=== PATIENT | male | born 1945 | race Caucasian/White ===

== ENCOUNTER → 2020-12-19 15:04 | Outpatient (CLI) | payer MEDICARE, SELFPAY ==
[2020-12-19 16:52] LABS: Absolute Lymphocyte Count 1.29 X10^3/uL (0.83-4.51); Absolute Neutrophil Count 4.3 X10^3/uL (2.0-7.7); Basophil# 0.06 X10^3/uL; Basophil% 0.9 % (0-1); Eosinophil# 0.21 X10^3/uL; Eosinophils% 3.2 % (0-5); Hematocrit 41.3 % (40-54); Lymphocyte # 1.29 X10^3/ul (0.83-4.51); Lymphocyte % 19.8 % (19-41); Mean Corp Hgb Conc 31.5 g/dL (32-36); Mean Corpuscular Hgb 28.4 pg (27.0-32.0); Mean Corpuscular Volume 90.4 fL (80-94); Mean Platelet Vol. 9.6 fl (6.2-12.0); Monocyte# 0.67 X10^3/uL; Monocyte% 10.3 % (0-10); NRBC Flagged by Analyzer 0 % (0-5); Neutrophil # 4.27 X10^3/uL (2.7-7.7); Neutrophil % 65.3 % (47-70); Platelet Count 255 K/mm3 (150-450); RBC Distribution Width CV 13.4 % (11.6-14.6); RBC Distribution Width SD 44.7 fl (35.1-43.9); Red Blood Count 4.57 M/mm3 (4.6-6.2); White Blood Count 6.5 K/mm3 (4.4-11.0)
[2020-12-19 17:31] LABS: ALB/GLOB Ratio 1.3 RATIO (0.9-2.4); AST(SGOT) 28 U/L (15-37); Alanine Aminotransfer ALT/SGPT 30 U/L (16-61); Albumin, Serum 3.7 g/dL (3.2-5.0); Alkaline Phosphatase 77 U/L (45-117); Anion Gap 7 (5-15); BUN 21 mg/dL (7-18); BUN/Creat Ratio 18.9 RATIO (10-20); Calcium,Total 8.5 mg/dL (8.5-10.1); Chloride 106 mmol/L (98-107); Cholesterol 181 mg/dL (200); Creatinine, Serum 1.11 mg/dL (0.70-1.30); EST Glomerular Filtration Rate 69 mL/min (>60); Est Glom Filt Rate - Afr Amer 83 mL/min (>60); Globulin 2.9 g/dL (2.2-4.2); Glucose 89 mg/dL (74-106); High Density Lipoprotein 54 mg/dL; Protein, Total 6.6 g/dL (6.4-8.2); Sodium Level 142 mmol/L (136-145); Thyroid Stim Hormone (TSH) 1.63 uIU/mL (0.358-3.74); Triglycerides 167 mg/dL; Very Low Density Lipoprotein 33 mg/dL (5-40)
[2020-12-20 08:17] LABS: Hepatitis C Antibody Non-Reactive (Nonreactive)
== END ==
PROVIDERS: PCP Family Medicine Geriatric Medicine; Visit Provider Family Medicine Geriatric Medicine
DX: E78.5 Hyperlipidemia, unspecified (principal); R53.83 Other fatigue; Z13.89 Encounter for screening for other disorder
CPT/HCPCS: 36415; 80053; 80061; 84443; 85025; 86803

== ENCOUNTER → 2020-12-27 12:54 | Outpatient (CLI) | payer MEDICARE, SELFPAY ==
--- NOTE | 2020-12-27 13:02 | CT_ITS ---
STUDY: CT CERVICAL SPINE WITHOUT CONTRAST REASON FOR EXAM: Male, 75 years old. CERVICAL DISC DEGENERATION RADIATION DOSAGE (If Supplied By Facility): CTDIvol = ( 20.44 ) mGy, DLP = ( 378.74 ) mGycm TECHNIQUE: High resolution transaxial imaging was performed without contrast material. Sagittal and coronal images were reconstructed. Individualized dose optimization techniques were used for this CT. COMPARISON: None FINDINGS: Normal craniovertebral junction. Normal anterior atlantoaxial articulation. Normal odontoid process. There is straightening of the normal cervical lordosis. Normal vertebral bodies and posterior osseous elements. C2-3: Hypertrophy of the facet joints worse on the right side. Posterior spondylosis causing marked degree of right neural foraminal stenosis and moderate degree of left neural foraminal stenosis. C3-4: The patient is status post laminectomy and interpedicular screw and wire fixation at the C3-C4 level. There is evidence of facet joint hypertrophy worse on the left side. Mild left neural foraminal stenosis. C4-5: Minimal mass effect of the superior endplate of the C4 vertebrae. Status post laminectomy and posterior fusion. Facet joint osteoarthritis and hypertrophy worse on the right side. Uncovertebral arthrosis with bilateral neural foraminal stenosis worse on the right side. C5-6: Prior laminectomy and interpedicular screw and jolene fixation. Hypertrophy of the facet joints worse on the left side with uncovertebral arthrosis. Bilateral neural foraminal stenosis worse on the left side. C6-7: Moderate degree of disc space narrowing. Uncovertebral arthrosis. Moderate degree of bilateral neural foraminal stenosis. Normal visualized soft tissue structures. CT/Spine Cervical without Contras IMPRESSION: Prior laminectomy and posterior fusion at the C3-C4 and C4-C5 levels with multilevel bilateral neural foraminal stenosis as described. Electronically Signed: Jake Guardado MD at 14:43 EDT , Service support ,
--- NOTE | 2020-12-27 13:03 | CT_ITS ---
STUDY: LOW DOSE CT LUNG CANCER SCREENING REASON FOR EXAM: Male, 75 years old. CIG SMOKER. The patient smoked 1 pack per day for 25 years. RADIATION DOSAGE (If Supplied By Facility): CTDIvol = ( 4.02 ) mGy, DLP = ( 196.34 ) mGycm TECHNIQUE: No contrast was administered. Low dose technique was utilized (average mAS-38 and kVp 120). 1.25 mm axial source images with a slice interval of 1.25-mm were reconstructed in lung windows. 2.5 mm axial source images with a slice interval of 2.5-mm were reconstructed in lung windows. 5.0 mm axial source images with a slice interval of 5.0-mm were reconstructed in soft tissue windows. Nodule measured using lung windows on PACS and/or independent workstation with automated measurement of minimum and maximum diameter. Nodule measurement reported as average diameter rounded to the nearest whole number. Growth is defined as an increase ins size of greater than 1.5 mm. COMPARISON: None. NODULES: No suspicious nodules are seen. Emphysema: Mild degree of scarring at the lung bases slightly more prominent on the left lung base. Endobronchial lesion: None Aorta: Mild calcific plaques at the level of the aortic arch. Coronary arteries: Coronary artery calcifications. Heart: Unremarkable Pulmonary artery: Unremarkable Mediastinal nodes: Small mediastinal lymph nodes. Other chest and abdominal findings: CT/Low Dose CT Lung Screening IMPRESSION: Lung-RADS category 2 - Continue annual screening with LDCT in 12 months. IMPORTANT NOTES FOR USE: ACR Lung-RADS Version 1.1 Assessment Categories Release Date: 2018 Category: Coded 0-4 bases on nodule(s) with highest degree of suspicion. Negative screen is defined as categories 1 and 2; a positive screen is defined as categories 3 and 4. Category 3 and 4A nodules that are unchanged on interval CT should be coded as category 2, and individuals returned to screening in 12 months. Category 4X: Category 3 or 4 nodules with additional imaging findings that increase the suspicion of lung cancer, such as spiculation, GGN that doubles in size in 1 year, enlarged lymph notes, etc. Category Modifiers: S (significant finding unrelated to lung cancer) Electronically Signed: Jake Guardado MD at 14:45 EDT , Service support ,
== END ==
PROVIDERS: PCP Family Medicine Geriatric Medicine
DX: M50.322 Other cervical disc degeneration at C5-C6 level (principal); F17.210 Nicotine dependence, cigarettes, uncomplicated
CPT/HCPCS: 71271; 72125

== ENCOUNTER 2021-04-02 10:30 | Outpatient (RCR) | payer MEDICARE, SELFPAY ==
--- NOTE | 2021-01-29 12:40 | HP.PTEVAL_ITS ---
Patient's Visit Information LUÍS HERNANDEZ is a 75 year old M referred to Physical Therapy by Dr. Zackary Carlos MD with a diagnosis of Cervical. Date of Evaluation: 01/29/21 Physical Therapist: Yaa Vizcaino DPT - Visit Plan Frequency: 2x /Week Duration: 4 Weeks Plan: Focus on postural strength/stabilization and reducing radiating s/s- No US. Cervical Fusion Jun 2020. HEP Given IE: Postural education, Isometrics in all directions cervical spine, scapular retractions - Subjective Patient reports that he had a laminectomy and fusion by an MD in [place] on July 04, 2020. He was better after surgery- but stuff is starting to creep back in. Symptoms before surgery numbness/tingling down the left arm all the way to the hand- neck pain hard to sleep. Just started to have tingling to the left side of the face and a little bit of symptoms in the hand. The tingling in the hand comes and goes but the neck and face is always sore. Describes the pain as dull and achy- Left side only. Worst: 4-5/10 Agg: any kind of lifting. They bought a house and has been lifting. Eases: laying down on his side. Best: 4-5/10. Prior to surgery had weakness but does not have that now- no problems with finger dexterity. Has had increased headaches- occiput on the left side- constant pressure always there. Sleep: hard to get comfortable. No blurred vision, lightheaded, dizziness. Did not therapy after surgery. Surgeon suggestions: no lifting heavy objects and jumping. Has been cleared to not see him again. Fusion and everything is in place. PMHx: borderline HTN, Bilateral TKR, bladder surgery, Cervical Fusion. Meds: Hydroxisonin, gabapentin at night helps him sleep, Celebrex as needed, Tylenol arthritis, heat/ice on his neck, Sediment for restless leg. He is very active and likes to be more active. - Objective Posture: poor in both sitting and standing with severe forward head and rounded shoulders- can correct RS with verbal and tactile cues but is unable to bring head into neutral position. Gait: good arm swing and trunk rotation but does maintain FH, RS posture. Palpation: tender along upper trap bilateral Left>Right- levator insertion- infraspinatus in the left. Strength: Cervical Isometric: 4/5, Scap: fair minus, Shoulder: 4+/5 bilateral, Elbow/Wrist: 5/5 Ceramic Research Engineer: Left: 40lbs of force Right: 100 lbs of force. Sensation: WNL to gross touch throughout bilateral UE. ROM: UE: WFL, Cervical Spine: Extn: unable to get to neutral, Flexion: chin to chest SB: decreased by 75% Rotation: decreased by 75%. *No testing increased s/s* - Goals Goal 1:: Patient will be I with HEP and progression Goal Time Frame: 4-6 Weeks Goal 2:: Patient will demo improved posture t/o tx session to demo increases scap s/s Goal Time Frame: 4-6 Weeks Goal 3:: Patient will report no radiating s/s for 1 week Goal Time Frame: 4-6 Weeks Goal 4:: Patient will report sleeping through the night without waking due to neck symptoms Goal Time Frame: 4-6 Weeks - Rehabilitation Potential Physical Therapy Diagnosis: Patient presents with hypomobility-he has decreased ROM, scapular strength/stabilization, upper extremity strength and muscular endurance leading to poor posture and increased pain with ADL's. Rehabilitation Potential: Fair - Anticipated Interventions Patient/Client Instruction: Educate patient on: Benefits of Fitness Program Therapeutic Exercise to Include: Strength training, Endurance training, Body mechanics, Postural training, Flexibilty training, Scapular Strength/Stabilization For the Purpose of:: To improve muscle performance and motor function Cryotherapy (ice pack, ice massage): Yes Thermo therapy (hot pack): Yes Ultrasound (thermal/non thermal): No Thank you for the opportunity to evaluate your patient. For Medicare and Medicare HMO plans, please review the plan of care and approve it. It will need to be FAXED BACK to us at [phone] for Medicare purposes. For Medicare only, by signing this I certify the plan of care. Please let me know if there are questions or concerns regarding this plan of care. Physician Signature: Date:
--- NOTE | 2021-04-19 08:38 | HP.PT.NRP ---
LUÍS HERNANDEZ was seen in my office for initial evaluation on 01/29/21. The following Plan of Care was established for this patient: Initial Frequency: 2x /Week Initial Duration: 4 Weeks Patient/Client Instruction: Educate patient on: Benefits of Fitness Program Therapeutic Exercise to Include: Strength training, Endurance training, Body mechanics, Postural training, Flexibilty training, Scapular Strength/Stabilization For the Purpose of:: To improve muscle performance and motor function Cryotherapy (ice pack, ice massage): Yes Thermo therapy (hot pack): Yes Ultrasound (thermal/non thermal): No This patient was last seen in our office 04/02/21. Pertinent comments regarding their Physical therapy will appear below: This patient has not returned to Physical Therapy and is appropriate to return to MD for further follow-up as needed. At this point I will be discontinuing this patient from physical therapy. I would be happy to see this patient again in the future if found appropriate by the physician. Thank you! Erna Lauren, PT, Cert MDT Balance/Gait/Functional tests - Balance/Special Test Scores Oswestry Neck Score: 22
== END 2021-04-02 19:00 | disposition home or self-care (01) ==
LOC: PT 10:30
PROVIDERS: PCP Family Medicine Geriatric Medicine; Referring Provider Family Medicine Geriatric Medicine; Visit Provider Family Medicine Geriatric Medicine
DX: M48.02 Spinal stenosis, cervical region (principal)
CPT/HCPCS: 97110; 97162; 97530

== ENCOUNTER → 2021-05-27 11:14 | Outpatient (CLI) | payer MEDICARE, SELFPAY ==
--- NOTE | 2021-05-27 11:18 | RAD_ITS ---
STUDY: X-RAY - PELVIS AND RIGHT HIP REASON FOR EXAM: Male, 76 years old. HIP PAIN TECHNIQUE: 3 views of the pelvis and hip. COMPARISON: None. FINDINGS: There is a non-specific bowel gas pattern. Normal visualized soft tissue structures. Normal bilateral iliac wings, sacroiliac joints and visualized sacrum. Normal bilateral superior and inferior pubic rami. Normal pubic symphysis. Normal bilateral ischial tuberosities. Normal visualized femoral head. Normal acetabulum. Normal hip joint. RAD/HIP, UNI W/ Pelvis 2-3 Views IMPRESSION: Normal x-ray examination of the pelvis and hip. Electronically Signed: Migue Morris MD at 16:30 EDT Tel , Service support ,
--- NOTE | 2021-05-27 11:18 | RAD_ITS ---
STUDY: X-RAY - RIGHT KNEE REASON FOR EXAM: Male, 76 years old. KNEE PAIN TECHNIQUE: 4 view(s) of the knee. COMPARISON: None. FINDINGS: Normal visualized distal femur. Normal visualized proximal tibia and fibula. Normal proximal tibiofibular articulation. Status post total knee arthroplasty. The prosthesis appears located. No osteolysis to suggest loosening.. The soft tissue structures are unremarkable. RAD/Knee 4 or More Views IMPRESSION: Normal x-ray examination of the knee after total knee arthroplasty. Electronically Signed: Migue Morris MD at 16:31 EDT Tel , Service support ,
== END ==
PROVIDERS: PCP Family Medicine Geriatric Medicine; Referring Provider Family Medicine Geriatric Medicine; Visit Provider Family Medicine Geriatric Medicine
DX: M25.551 Pain in right hip (principal); M25.561 Pain in right knee
CPT/HCPCS: 73502; 73564

== ENCOUNTER → 2021-07-05 10:16 | Outpatient (CLI) | payer MEDICARE, SELFPAY ==
[2021-07-05 11:40] LABS: Anion Gap 4 (5-15); BUN 23 mg/dL (7-18); BUN/Creat Ratio 22.5 RATIO (10-20); Calcium,Total 8.8 mg/dL (8.5-10.1); Chloride 103 mmol/L (98-107); Creatinine, Serum 1.02 mg/dL (0.70-1.30); EST Glomerular Filtration Rate 76 mL/min (>60); Est Glom Filt Rate - Afr Amer 92 mL/min (>60); Glucose 98 mg/dL (74-106); Potassium 4.2 mmol/L (3.5-5.1); Sodium Level 136 mmol/L (136-145)
== END ==
PROVIDERS: PCP Family Medicine Geriatric Medicine; Referring Provider Internal Medicine Cardiovascular Disease; Visit Provider Internal Medicine Cardiovascular Disease
DX: I10 Essential (primary) hypertension (principal)
CPT/HCPCS: 36415; 80048

== ENCOUNTER → 2021-07-12 08:47 | Outpatient (CLI) | payer MEDICARE, SELFPAY | PROVIDERS: PCP Family Medicine Geriatric Medicine; Referring Provider Internal Medicine Cardiovascular Disease; Visit Provider Internal Medicine Cardiovascular Disease | DX: I10 Essential (primary) hypertension (principal) | CPT/HCPCS: 93788 ==

== ENCOUNTER → 2022-01-27 | Outpatient (CLI) | payer MEDICARE, SELFPAY ==
--- NOTE | 2022-01-27 15:50 | RAD_ITS ---
EXAM: XR LUMBOSACRAL SPINE, 2 OR 3 VIEWS CLINICAL INDICATION: PAIN TECHNIQUE: Frontal and lateral views of the lumbar spine and sacrum. This report was created using [employer] report [employer] technology. COMPARISON: None. FINDINGS: VERTEBRAE: Unremarkable. Preserved vertebral body height. No fracture. No spondylolisthesis. Preservation of the normal lumbar lordosis. No significant facet arthropathy. DISC SPACES: There is disc space narrowing from L3 through S1. There is severe bony neural foraminal narrowing at L3-4, L4-5 and L5-S1. GASTROINTESTINAL TRACT: Unremarkable as visualized. Included bowel gas pattern is non-obstructive. RAD/Lumbar Spine 2 or 3 Views IMPRESSION: Degenerative changes with disc space narrowing and bony neural foraminal narrowing lower lumbar spine. There are no acute osseous abnormalities. Electronically Signed: Herson Awad MD at 18:02 EDT ,
== END | disposition home or self-care (01) ==
LOC: RAD 15:36
PROVIDERS: PCP Internal Medicine; Referring Provider Anesthesiology Pain Medicine; Visit Provider Anesthesiology Pain Medicine
DX: M51.36 Other intervertebral disc degeneration, lumbar region (principal)
CPT/HCPCS: 72100

== ENCOUNTER → 2022-02-06 | Outpatient (CLI) | payer MEDICARE, SELFPAY ==
--- NOTE | 2022-02-06 15:38 | MRI_ITS ---
STUDY: MR Spine Lumbar W/O Contrast 02/07/2022 3:20 PM REASON FOR EXAM: Male, 76 years old. Back pain RADICULOPATHY, LUMBAR REGION TECHNIQUE: MR Spine Lumbar W/O Contrast Standardized fat and water weighted pulse sequences were obtained. COMPARISON: None FINDINGS: Normal lumbar lordosis. There is a levoscoliosis of the lumbar spine. Normal conus medullaris that terminates at the L1. L1-2: Loss of intervertebral disc height. There is endplate spondylosis of the vertebral body. Normal central canal and intervertebral neuroforamina. There is bilateral facet arthropathy. L2-3: Loss of intervertebral disc height. There is endplate spondylosis of the vertebral body. Normal central canal and intervertebral neuroforamina. There is bilateral facet arthropathy. There is bilateral ligamentum flavum thickening. L3-4: Loss of intervertebral disc height. There is endplate spondylosis of the vertebral body. Narrowing of the bilateral intervertebral neuroforamina. No evidence for compression of the exiting nerve roots. There is bilateral facet arthropathy. There is bilateral ligamentum flavum thickening. Mild spinal stenosis. L4-5: Loss of intervertebral disc height. There is endplate spondylosis of the vertebral body. Narrowing of the bilateral intervertebral neuroforamina. No evidence for compression of the exiting nerve roots. There is bilateral facet arthropathy. There is bilateral ligamentum flavum thickening. Grade 1 anterolisthesis measuring 5.1 mm of L4 on L5. Severe spinal stenosis. L5-S1: Loss of intervertebral disc height. There is endplate spondylosis of the vertebral body. There is bilateral facet arthropathy. Normal central canal and intervertebral neuroforamina. Vacuum disc phenomenon. Posterior disc bulge. Grade retrolisthesis of L5 on S1. This measures 2.7 mm. Normal visualized sacral ala. Normal visualized paraspinous soft tissue structures. MRI/Spine Lumbar (Routine) IMPRESSION: Multilevel degenerative changes, as described above. L3-4: Loss of intervertebral disc height. There is endplate spondylosis of the vertebral body. Narrowing of the bilateral intervertebral neuroforamina. No evidence for compression of the exiting nerve roots. There is bilateral facet arthropathy. There is bilateral ligamentum flavum thickening. Mild spinal stenosis. L4-5: Loss of intervertebral disc height. There is endplate spondylosis of the vertebral body. Narrowing of the bilateral intervertebral neuroforamina. No evidence for compression of the exiting nerve roots. There is bilateral facet arthropathy. There is bilateral ligamentum flavum thickening. Grade 1 anterolisthesis measuring 5.1 mm of L4 on L5. Severe spinal stenosis. L5-S1: Loss of intervertebral disc height. There is endplate spondylosis of the vertebral body. There is bilateral facet arthropathy. Normal central canal and intervertebral neuroforamina. Vacuum disc phenomenon. Posterior disc bulge. Grade retrolisthesis of L5 on S1. This measures 2.7 mm. Electronically Signed: Juve Mustafa MD at 15:41 EDT ,
== END | disposition home or self-care (01) ==
PROVIDERS: PCP Internal Medicine; Visit Provider Anesthesiology Pain Medicine
DX: M54.16 Radiculopathy, lumbar region (principal)
CPT/HCPCS: 72148

== ENCOUNTER → 2022-06-06 | Outpatient (CLI) | payer MEDICARE, SELFPAY ==
--- NOTE | 2022-06-06 09:45 | RAD_ITS ---
STUDY: X-RAY - PELVIS AND RIGHT HIP REASON FOR EXAM: Male, 77 years old. PAIN TECHNIQUE: 3 views of the pelvis and hip. COMPARISON: None. FINDINGS: There is a non-specific bowel gas pattern. There are multiple calcified phleboliths. There are degenerative changes of the sacroiliac joints. Normal bilateral superior and inferior pubic rami. There are degenerative changes of the pubic symphysis with articular narrowing and sclerosis. Normal bilateral ischial tuberosities. There are degenerative changes of the hips characterized by joint space narrowing and subchondral sclerosis. RAD/HIP, UNI W/ Pelvis 2-3 Views IMPRESSION: Degenerative changes. Electronically Signed: Silvina De La Cruz MD at 14:57 EDT ,
== END | disposition home or self-care (01) ==
LOC: RAD 09:36
PROVIDERS: PCP Internal Medicine; Referring Provider Anesthesiology Pain Medicine; Visit Provider Anesthesiology Pain Medicine
DX: M16.11 Unilateral primary osteoarthritis, right hip (principal)
CPT/HCPCS: 73502

== ENCOUNTER 2022-08-24 23:10 | Inpatient (IN) | payer MEDICARE, SELFPAY ==
[2022-08-24 23:14] VITALS: BP 173/129; PULSE 91; RESP 23; TEMP 36.4; O2SAT 99; BMI 30.1
--- NOTE | 2022-08-24 23:36 | EKG12_ITS ---
Test Reason : POST PCI Blood Pressure : / mmHG Vent. Rate : 076 BPM Atrial Rate : 076 BPM P-R Int : 180 ms QRS Dur : 098 ms QT Int : 404 ms P-R-T Axes : 048 -09 011 degrees QTc Int : 454 ms Normal sinus rhythm Inferior infarct , age undetermined , cannot be excluded Poor R wave progression Abnormal ECG Confirmed by SHAMA HENDERSON, BILL ([id number]), editor city TARIK ARCHULETA ([id number]) on 08/27/2022 10:48:15 AM Referred By: YOYL Confirmed By:BILL SESAY MD
--- NOTE | 2022-08-24 23:36 | RAD_ITS ---
STUDY: X-RAY CHEST REASON FOR EXAM: Male, 77 years old patient with chest pain. TECHNIQUE: Single AP portable view of the chest. COMPARISON: CT of the chest dated December 27, 2020. FINDINGS: Cardiac monitoring leads are present. The lungs are hyperexpanded with prominence of the bronchovascular markings. There is no demonstrated pleural abnormality. There is borderline cardiomegaly. Normal mediastinum and danae. There is prominence of the pulmonary hilar arteries with peripheral pulmonary vascular congestion. There is atherosclerotic calcification of the aortic arch with tortuosity. There are diffuse degenerative changes of the visualized thoracic spine. There is subtle deformity of the distal right clavicle that may be the result of old fracture. There is no demonstrated abnormality of the visualized soft tissue structures of the upper abdomen. RAD/Chest 1 View (Portable) IMPRESSION: Borderline cardiomegaly and mild pulmonary vascular congestion. Electronically Signed: Naya Shaw MD at 0:07 EST ,
[2022-08-24] MEDS: Ondansetron 4 MG/2 ML Vial IV (23:43)
[2022-08-24] MEDS: Aspirin 81 MG TAB.CHEW 324 MG PO (23:45)
[2022-08-24 23:50] VITALS: BP 173/129; PULSE 75
[2022-08-24] MEDS: Nitroglycerin SL (ED/IMG/CATH) 0.4 MG TABLET SL (23:50)
[2022-08-24 23:53] LABS: Absolute Lymphocyte Count 2.07 X10^3/uL (0.83-4.51); Absolute Neutrophil Count 3.9 X10^3/uL (2.0-7.7); Basophil# 0.05 X10^3/uL; Basophil% 0.7 % (0-1); Eosinophil# 0.24 X10^3/uL; Eosinophils% 3.3 % (0-5); Hematocrit 43.8 % (40-54); Hemoglobin 14.9 g/dL (13.0-16.5); Lymphocyte # 2.07 X10^3/ul (0.83-4.51); Lymphocyte % 28.4 % (19-41); Mean Corpuscular Hgb 30.8 pg (27.0-32.0); Mean Corpuscular Volume 90.5 fL (80-94); Mean Platelet Vol. 9.3 fl (6.2-12.0); Monocyte# 0.98 X10^3/uL; Monocyte% 13.5 % (0-10); NRBC Flagged by Analyzer 0 % (0-5); Neutrophil # 3.91 X10^3/uL (2.7-7.7); Neutrophil % 53.7 % (47-70); Platelet Count 338 K/mm3 (150-450); RBC Distribution Width CV 13.2 % (11.6-14.6); RBC Distribution Width SD 44.2 fl (35.1-43.9); Red Blood Count 4.84 M/mm3 (4.6-6.2); White Blood Count 7.3 K/mm3 (4.4-11.0)
--- NOTE | 2022-08-24 23:54 | EDS_ITS ---
HPI History of Present Illness Chief Complaint: Chest Pain Informant: patient Onset/Context/Timing Onset: Hours (2-3) Activity at onset: gradual and onset Timing: Continuous Quality: Positive for Dull and Pain Location: Left Chest (w/ radiation to back between shoulder blades and down LUE) Current Severity: Moderate Maximum Severity: Moderate Worsened By: Nothing; Not Worsened By Movement of Arm, Movement of Torso, Palpation, Breathing or Coughing Relieved By: Nothing Associated Symptoms: Positive for Nausea and Dyspnea; Negative for Vomiting, Diaphoresis, Cough, Fever, Lightheadedness or Palpitations Narrative Narrative: Patient states he has been having intermittent chest pain for the last 2 or 3 days, but worse and more persistent tonight. The episodes of may be lasted hours at a time prior to tonight. Nonpleuritic discomfort more associated with the left side, radiates into his upper back and his left upper extremity. No history of heart problems that he knows of. Has never failed a stress test the last one he had was 1-2 years ago. Non-smoker. CVD Risk Factors: Positive for Hypertension and Hypercholesterolemia; Negative for Diabetes, Family History 1' </=55 or Smoking PE Risk Factors: Positive for Recent Travel/Surgery (Travel to and from [place], no leg pain or swelling); Negative for Recent Immobilization, Prior DVT or PE, Cancer or OCP + Smoking + >/=35 [facility] Medical History Anxiety BPH (benign prostatic hyperplasia) Cervical stenosis of spine Coronary artery calcification seen on CAT scan (12/2016) Essential hypertension History of hyperthyroidism Hyperlipidemia Insomnia Neuropathy Obesity Obstructive sleep apnea Osteoarthritis Restless legs syndrome (RLS) Home Medications carbidopa 25 mg-levodopa 100 mg tablet 1 tab PO QHS 06/21/21 [History Last Taken Unknown] diphenhydramine 25 mg-acetaminophen 500 mg tablet (Tylenol PM Extra Strength) 1 tab PO QHS PRN Pain 07/05/21 [History Last Taken Unknown] melatonin 5 mg capsule 5 mg PO QHS 07/05/21 [History Last Taken Unknown] doxazosin 4 mg tablet 4 mg PO QHS #90 tabs 03/03/22 [Rx Last Taken Unknown] gabapentin 300 mg capsule 300 mg PO DAILY #90 caps 07/16/22 [Rx Last Taken Unknown] Allergy/AdvReac Type Severity Reaction Status Date / Time acetaminophen [From Percocet] AdvReac unknown Verified 08/24/22 23:13 codeine AdvReac unknown Verified 08/24/22 23:13 oxycodone [From Percocet] AdvReac unknown Verified 08/24/22 23:13 Family History Sister Arthritis Mother Hypertension Other CVA (cerebral vascular accident) Surgical History H/O cervical spine surgery (02/2020) History of carpal tunnel surgery History of herniorrhaphy History of knee replacement History of thyroid surgery History of transurethral resection of prostate (09/2019) Trigger finger Social History Smoking Status: Former smoker quit date: 08/17/97 alcohol intake: current alcohol intake frequency: a few times a week substance use type: does not use ROS ROS ED Constitutional Constitutional ED: Denies chills or fever(s) Eyes Eyes: Denies change in vision or diplopia ENT ENT ED: Denies rhinorrhea or sore throat Cardiovascular Cardiovascular: Reports chest pain; Denies palpitations Respiratory/Chest Respiratory/Chest: Reports dyspnea; Denies cough Gastrointestinal Gastrointestinal: Reports nausea; Denies abdominal pain, diarrhea or vomiting Genitourinary Genitourinary ED: Denies dysuria or hematuria Musculoskeletal Musculoskeletal: Reports extremity pain; Denies back pain or neck pain Integumentary Denies abscess or rash Neurologic Neurologic: Denies headache(s), paresthesias or weakness Psychiatric Psychiatric: Denies anxiety or suicidal thoughts EXAM Physical Exam Const Vital Signs: 08/24/22 23:14 08/24/22 23:19 08/24/22 23:50 Temperature 97.5 F L Temperature Source Temporal Pulse Rate 91 75 Respiratory Rate 23 H Respiratory Effort Normal Respiratory Pattern Normal Blood Pressure 173/129 H 173/129 H Blood Pressure Mean 143 Pulse Ox 99 Oxygen Delivery Method Room Air 08/25/22 00:17 Temperature Temperature Source Pulse Rate 71 Respiratory Rate Respiratory Effort Respiratory Pattern Blood Pressure 132/85 H Blood Pressure Mean Pulse Ox Oxygen Delivery Method Positive well nourished and well developed General Appearance ED: well developed and NAD HEENT Reports moist mucous membranes normocephalic and atraumatic Eyes PERRL and EOMs intact bilaterally Neck full ROM, no lymphadenopathy, supple and no JVD Resp normal respiratory effort and clear to auscultation bilaterally Cardio regular rate, regular rhythm and no murmurs Rate: Negative for tachycardic GI non-tender and non-distended Auscultation: normoactive bowel sounds Palpation: soft Back/Spine no CVA tenderness General Back: other FROM Extremity normal to inspection, no calf tenderness and no pedal edema General Extremety ED: Negative for edema, pulses abnormal or tenderness General Extremity: Negative for edema or pulses abnormal Neuro oriented x3, CN's II-XII intact bilaterally and no sensory deficits noted Sensorium / Orientation: awake and alert Motor Exam: strength 5/5 throughout Skin no rashes or lesions noted and no wounds Heart Score History: Highly Suspicious ECG: Nonspecific Repolarization Age: >/= 65 years Risk Factors: 1 or 2 Risk Factors Score: 6 MDM MDM MDM Narrative Medical decision making narrative: Concerning story from this patient, he has some very minor nonspecific EKG changes in the lateral leads I and aVL, there is no criteria for STEMI. His 1 view chest x-ray shows borderline cardiomegaly, I do not see anything acute there. I interpreted the chest x-ray myself. Reviewed the radiology interpretation. He was given aspirin and nitroglycerin for his discomfort, initial troponin came back within normal limits at 32. However, given his EKG changes, concern at this could be unstable angina and I recommend that we admit him for further evaluation and testing. Also given an injection of Lovenox because of this. He is feeling much better after aspirin and nitroglycerin, his discomfort is almost completely gone. His blood pressure was elevated prior to this, now it is better and he is feeling much better. Will place nitroglycerin paste on his chest. High heart score, admission for further evaluation and possibly provocative testing indicated. Patient comfortable with that plan. Lab Data Attestation: I reviewed the patient's lab results. Labs: Laboratory Results - last 24 hr 08/24/22 08/24/22 23:25 23:25 WBC 7.3 RBC 4.84 Hgb 14.9 Hct 43.8 MCV 90.5 MCH 30.8 MCHC 34.0 RDW Std Deviation 44.2 H RDW Coeff of Danny 13.2 Plt Count 338 MPV 9.3 Immature Gran % (Auto) 0.400 Neut % (Auto) 53.7 Lymph % (Auto) 28.4 [place] % (Auto) 13.5 H Eos % (Auto) 3.3 Baso % (Auto) 0.7 Absolute Neuts (auto) 3.9 Absolute Lymphs (auto) 2.07 Nucleated RBC % 0 Sodium 141 Potassium 3.8 Chloride 109 H Carbon Dioxide 26.0 Anion Gap 6 BUN 18 Creatinine 1.18 Estim Creat Clear Calc 54.99 Est GFR (MDRD) Af Amer 77 Est GFR (MDRD) Non-Af 64 BUN/Creatinine Ratio 15.3 Glucose 107 H Calcium 9.0 Troponin I High Sens 32 Radiography Diagnostic Testing: Clinical Impression(s) from Imaging Studies Chest X-Ray 08/24/22 23:36 IMPRESSION: Borderline cardiomegaly and mild pulmonary vascular congestion. Electronically Signed: Naya Shaw MD at 0:07 EST Reading Location ID and State: [address] [place] [address] , Service support , Rhythm Strip Rhythm Strip: Sinus Rhythm Rate: 82 Ectopy: None EKG Initial EKG: Attestation: I personally reviewed and interpreted this EKG as follows: Interpretation: Sinus Rhythm, No Acute Injury Pattern and Non-Specific ST Changes (laterally I & aVL) Prior EKG tracings: available for review (Outside EKG from outpatient [facility] 07/15/2021) Prior: Changed Discharge Plan Triage Chief Complaint: Chest Pain ED Provider: Braxton Castillo Dx/Rx/DC Orders Clinical Impression: Unstable angina Prescriptions: No Action melatonin 5 mg capsule 5 mg PO QHS diphenhydramine-acetaminophen [Tylenol PM Extra Strength] 25-500 mg tablet 1 tab PO QHS PRN (Reason: Pain) carbidopa-levodopa 25-100 mg tablet 1 tab PO QHS doxazosin 4 mg tablet 4 mg PO QHS Qty: 90 1RF gabapentin 300 mg capsule 300 mg PO DAILY Qty: 90 3RF Primary Care Provider: Haroldo Hollis Referrals: Haroldo Hollis MD [Primary Care Provider] - Disposition Disposition: Acute Care Hospital [facility]
[2022-08-25] VITALS (16 sets, daily range): BP systolic 122–143; BP diastolic 74–94; PULSE 61–90; RESP 14–22; TEMP 36.4–36.9; O2SAT 94–98; BMI 31.2
[2022-08-25 00:11] LABS: Anion Gap 6 (5-15); BUN 18 mg/dL (7-18); BUN/Creat Ratio 15.3 RATIO (10-20); Chloride 109 mmol/L (98-107); Creatinine, Serum 1.18 mg/dL (0.70-1.30); EST Glomerular Filtration Rate 64 mL/min (>60); Est Glom Filt Rate - Afr Amer 77 mL/min (>60); Estimated Creatinine Clearance 54.99 ml/min; Glucose 107 mg/dL (74-106); Potassium 3.8 mmol/L (3.5-5.1); Sodium Level 141 mmol/L (136-145); Troponin-I HS (w/2H Reflex) 32 pg/mL (3.0-78.0)
[2022-08-25] MEDS: Nitroglycerin SL (ED/IMG/CATH) 0.4 MG TABLET SL (00:17)
[2022-08-25] MEDS: Nitroglycerin Oint 1 INCH PACKET 0.5 INCH TD ×2 (00:43→05:19)
[2022-08-25] MEDS: Enoxaparin 100 MG/ML Syringe 95 MG SC (00:48)
--- NOTE | 2022-08-25 00:51 | PCM.HP.STD ---
HPI - General General Date of Admission: 08/25/22 Date of Service: 08/25/22 Chief Complaint: Chest pain HPI Narrative LUÍS HERNANDEZ, is a 77 M with a significant history of BPH; and restless leg syndrome on Sinemet who presents to the emergency department with a 2-week history of progressively worsening chest pain that spans across his entire chest and radiates to in between his shoulder blades. His symptoms actually started with pain in between his shoulder blades which he initially attributed it to a previous history of laminectomy. Massaging in between his shoulder blades did not help. Initially the pain was sharp but on presentation the pain was dull. The pain has been excruciating. He denies any aggravating factors to the pain. Lying flat on the bed initially made the pain better but on the day of presentation lying flat did not help. At the emergency department he received nitroglycerin and aspirin and that helped with his pain. Associated with symptom is nausea and shortness of breath. Also he has lightheadedness. Some years back he had a negative stress test at a different hospital. [facility] Medical History Anxiety BPH (benign prostatic hyperplasia) Cervical stenosis of spine Coronary artery calcification seen on CAT scan (12/2016) Essential hypertension History of hyperthyroidism Hyperlipidemia Insomnia Neuropathy Obesity Obstructive sleep apnea Osteoarthritis Restless legs syndrome (RLS) Home Medications carbidopa 25 mg-levodopa 100 mg tablet 1 tab PO QHS 06/21/21 [History Last Taken Unknown] diphenhydramine 25 mg-acetaminophen 500 mg tablet (Tylenol PM Extra Strength) 1 tab PO QHS PRN Pain 07/05/21 [History Last Taken Unknown] melatonin 5 mg capsule 5 mg PO QHS 07/05/21 [History Last Taken Unknown] doxazosin 4 mg tablet 4 mg PO QHS #90 tabs 03/03/22 [Rx Last Taken Unknown] gabapentin 300 mg capsule 300 mg PO DAILY #90 caps 07/16/22 [Rx Last Taken Unknown] Allergy/AdvReac Type Severity Reaction Status Date / Time acetaminophen [From Percocet] AdvReac unknown Verified 08/24/22 23:13 codeine AdvReac unknown Verified 08/24/22 23:13 oxycodone [From Percocet] AdvReac unknown Verified 08/24/22 23:13 Family History Sister Arthritis Mother Hypertension Other CVA (cerebral vascular accident) Surgical History H/O cervical spine surgery (02/2020) History of carpal tunnel surgery History of herniorrhaphy History of knee replacement History of thyroid surgery History of transurethral resection of prostate (09/2019) Trigger finger Social History Smoking Status: Former smoker quit date: 08/17/97 alcohol intake: current alcohol intake frequency: a few times a week substance use type: does not use ROS ROS Narrative Pertinent positives and pertinent negatives as noted in HPI. All other systems were reviewed and are negative Vital Signs Vital Signs Vital Signs: 08/24/22 23:14 08/24/22 23:19 08/24/22 23:50 Temperature 97.5 F L Temperature Source Temporal Pulse Rate 91 75 Respiratory Rate 23 H Respiratory Effort Normal Respiratory Pattern Normal Blood Pressure 173/129 H 173/129 H Blood Pressure Mean 143 Pulse Ox 99 Oxygen Delivery Method Room Air 08/25/22 00:17 08/25/22 00:24 08/25/22 00:25 Temperature Temperature Source Pulse Rate 71 88 Respiratory Rate 22 H Respiratory Effort Respiratory Pattern Blood Pressure 132/85 H 132/85 H Blood Pressure Mean 100 Pulse Ox 95 96 Oxygen Delivery Method Room Air Room Air Weight Weight: 95.254 kg Body Mass Index (BMI) 30.1 Physical Exam Narrative Physical exam: General: Well-nourished, well-developed. Head: Normocephalic, atraumatic, no tenderness Eyes: Vision is grossly intact. EOMI ENT, no trauma, moist mucous membranes, no rhinorrhea Neck: Nontender, No thyromegaly. CVS: Regular rate and rhythm. S1-S2 present. No murmur, gallop or rub. Respiratory : clear to auscultation bilaterally, chest wall nontender, no wheezing Abdomen: Soft, nontender, nondistended, normal bowel sounds, no masses : Deferred Back: Nontender, no CVA tenderness. Extremities: Nontender full range of motion, no trauma Skin: Normal color, no trauma, abrasions Neuro: Alert, oriented, cranial nerves II through XII grossly intact. Psychiatry: Normal mood. Normal affect. Not depressed. Not anxious. Results Lab / Micro Data Result Diagrams: 08/24/22 23:25 08/24/22 23:25 Labs: Laboratory Results - last 24 hr 08/24/22 23:25: WBC 7.3, RBC 4.84, Hgb 14.9, Hct 43.8, MCV 90.5, MCH 30.8, MCHC 34.0, RDW Std Deviation 44.2 H, RDW Coeff of Danny 13.2, Plt Count 338, MPV 9.3, Immature Gran % (Auto) 0.400, Neut % (Auto) 53.7, Lymph % (Auto) 28.4, [place] % (Auto) 13.5 H, Eos % (Auto) 3.3, Baso % (Auto) 0.7, Absolute Neuts (auto) 3.9, Absolute Lymphs (auto) 2.07, Nucleated RBC % 0 08/24/22 23:25: Sodium 141, Potassium 3.8, Chloride 109 H, Carbon Dioxide 26.0, Anion Gap 6, BUN 18, Creatinine 1.18, Estim Creat Clear Calc 54.99, Est GFR (MDRD) Af Amer 77, Est GFR (MDRD) Non-Af 64, BUN/Creatinine Ratio 15.3, Glucose 107 H, Calcium 9.0, Troponin I High Sens 32 Rhythm Strip Rhythm Strip: Sinus Rhythm Rate: 82 Ectopy: None Radiology Impression Chest X-Ray 08/24/22 23:36 IMPRESSION: Borderline cardiomegaly and mild pulmonary vascular congestion. Electronically Signed: Naya Shaw MD at 0:07 EST Reading Location ID and State: [facility] / [place] , Service support , Assessment & Plan Assessment/Plan (1) Unstable angina: PLAN: Plan Unstable angina Place on a monitored bed at progressive care unit Impression chest x-ray by radiologist:Borderline cardiomegaly and mild pulmonary vascular congestion. Actual CXR image was independently visualized. I agree with radiologist interpretation. EKG tracing was independently visualized. EKG tracing showed mild ST depressions in leads I and aVL. Review of old records shows a stress test done on 02/20/2020 at [place], [place]. The stress test was nondiagnostic. Also review of record showed an echocardiogram on 02/01/2020 was unremarkable. EF was 65 to 70%. ASA 81 mg p.o. daily ordered Morphine as needed for pain ordered We will check lipid panel. Initial troponin was 32, trend. Stat EKG as needed for chest pain Stress test in the AM if the cardiac enzymes are stable DVT prophylaxis ordered. Charges/Coding Visit Charges Inpatient E&M: 13934 Init Hosp L2
[2022-08-25 01:40] LABS: Reflex Troponin-HS? (from REC) Y
--- NOTE | 2022-08-25 02:00 | ECHOCS_ITS ---
Reason For Study: Dyspnea/SOB Procedure This was a 2D Doppler, Color Flow transthoracic echocardiogram. The study was technically difficult. Contrast injection was performed. Exam performed portable in patient room. Left Ventricle Normal LV size. Left ventricular systolic function is normal. The estimated ejection fraction is 60 %. Stage 1 diastolic dysfunction. No regional wall motion abnormalities noted. Right Ventricle Normal RV size. Normal systolic function. Atria Normal left atrium. Normal right atrium. Mitral Valve Normal mitral valve. Tricuspid Valve Normal tricuspid valve. Aortic Valve Normal aortic valve. Trisinus/trileaflet aortic valve. Pulmonic Valve Normal pulmonic valve. Great Vessels Normal aortic root. The pulmonary artery is normal size. Normal inferior vena cava. Pericardium/Pleural No pericardial effusion. Medication Diluted definity 2ml given slow IV push to enhance endocardial definition. MMode/2D Measurements & Calculations LVIDd: 5.4 cm IVSd: 1.1 cm Ao root diam: 3.9 cm LVIDs: 3.3 cm LVPWd: 1.0 cm LA dimension: 4.0 cm RVDd: 4.1 cm FS: 38.2 % LAV(MOD-sp4): 39.4 ml LA A4 area: 16.2 cm2 RA A4 area: 16.7 cm2 Time Measurements MV dec time: 0.24 sec Doppler Measurements & Calculations MV E max pierre: 67.0 cm/sec Lat Peak E' Pierre: 8.9 cm/sec Med Peak E' Pierre: 8.0 cm/sec MV A max pierre: 93.5 cm/sec E/E' lat: 7.6 E/E' med: 8.4 MV E/A: 0.72 MV V2 max: 101.0 cm/sec MV P1/2t max pierre: 71.9 cm/sec Ao V2 max: 98.8 cm/sec MV max P.1 mmHg MV P1/2t: 98.6 msec Ao max P.9 mmHg MV V2 mean: 47.8 cm/sec MV dec slope: 213.6 cm/sec2 MV mean P.1 mmHg MV V2 VTI: 30.7 cm MVA(P1/2t): 2.2 cm2 AI max pierre: 154.9 cm/sec LV V1 max: 83.2 cm/sec PA V2 max: 84.7 cm/sec AI max P.6 mmHg LV V1 max P.8 mmHg AI dec slope: 51.3 cm/sec2 AI P1/2t: 885.0 msec TR max pierre: 238.7 cm/sec TR max P.8 mmHg ECHO/Echo Complete W/ Contrast Interpretation Summary Normal LV size. Left ventricular systolic function is normal. The estimated ejection fraction is 60 %. Stage 1 diastolic dysfunction. Contrast injection was performed. Ordering Physician: Otto Arnett Performed By: Ruddy Byrne RCS
[2022-08-25 02:09] LABS: Troponin-I HS 429 pg/mL (3.0-78.0)
[2022-08-25 06:06] LABS: Absolute Lymphocyte Count 1.98 X10^3/uL (0.83-4.51); Absolute Neutrophil Count 5.7 X10^3/uL (2.0-7.7); Basophil# 0.07 X10^3/uL; Basophil% 0.8 % (0-1); Eosinophils% 2.2 % (0-5); Hemoglobin 12.7 g/dL (13.0-16.5); Lymphocyte # 1.98 X10^3/ul (0.83-4.51); Lymphocyte % 21.9 % (19-41); Mean Corp Hgb Conc 32.6 g/dL (32-36); Mean Corpuscular Hgb 29.9 pg (27.0-32.0); Mean Corpuscular Volume 91.8 fL (80-94); Mean Platelet Vol. 9.2 fl (6.2-12.0); Monocyte# 1.04 X10^3/uL; Monocyte% 11.5 % (0-10); NRBC Flagged by Analyzer 0 % (0-5); Neutrophil # 5.73 X10^3/uL (2.7-7.7); Neutrophil % 63.3 % (47-70); Platelet Count 307 K/mm3 (150-450); RBC Distribution Width CV 13.4 % (11.6-14.6); RBC Distribution Width SD 45.6 fl (35.1-43.9); Red Blood Count 4.25 M/mm3 (4.6-6.2); White Blood Count 9.1 K/mm3 (4.4-11.0)
[2022-08-25 06:48] LABS: Anion Gap 4 (5-15); BUN 19 mg/dL (7-18); BUN/Creat Ratio 16.8 RATIO (10-20); Calcium,Total 8.6 mg/dL (8.5-10.1); Chloride 110 mmol/L (98-107); Creatinine, Serum 1.13 mg/dL (0.70-1.30); EST Glomerular Filtration Rate 67 mL/min (>60); Est Glom Filt Rate - Afr Amer 81 mL/min (>60); Estimated Creatinine Clearance 57.42 ml/min; Glucose 102 mg/dL (74-106); Sodium Level 142 mmol/L (136-145); Troponin-I HS 1086 pg/mL (3.0-78.0)
--- NOTE | 2022-08-25 08:07 | PCM.HOSP.N ---
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 Chest pain all across entire chest with radiation to intrascapular area. Chest pain is much better today about 1-2/10. Patient is stated he has been getting short of breath progressively worsening on exertion. Recently he gets short of breath and dizzy on climbing 10 steps and sometimes at night he gets dizzy controlled in the beds. Plan for cardiac catheter today.
[2022-08-25] MEDS: Aspirin 81 MG TAB.CHEW PO (08:33)
[2022-08-25] MEDS: 0.9% Saline Lock 10 ML Syringe IV (08:34)
[2022-08-25] MEDS: 0.9% Normal Saline 1,000 ML 15 ML IV (08:34)
--- NOTE | 2022-08-25 09:09 | PCM.CONS.C ---
Assessment & Plan Assessment/Plan (1) NSTEMI, initial episode of care: PLAN: He presents with chest discomfort and is noted to have a non-ST elevation myocardial infarction. I would recommend at this time that we proceed with a left heart catheterization and depending on the findings further recommendations will be made. The results will be noted below. Cardiac cath noted the following: Normal left main coronary artery. Left anterior descending artery with mild disease First diagonal vessel with 40% proximal stenosis. Left circumflex artery with mild disease. Dominant right coronary artery with high-grade 95% proximal stenosis. Preserved left ventricular systolic function. Based on the above angiographic findings would recommend PCI to the above vessel. Above discussed with interventionalists. (2) Essential hypertension: PLAN: He does have a history of hypertension which appears to be well controlled at this time I would not recommend that we make any other major changes at this time. (3) Hyperlipidemia: PLAN: He will continue with aggressive risk factor modification. HPI Consult Data Date of Consult: 08/25/22 HPI Narrative HPI Narrative: LUÍS HERNANDEZ, is a 77 M who presents with chest discomfort which he says was a tightness across his chest and radiating to both shoulder blades. He has a history of hypertension and benign prostatic hyperplasia who presents for a cardiac evaluation.? He says that he has been having some fluctuations in his blood pressure and has had occasional palpitations.? He has had some lightheadedness as well.? He had been started on his doxazosin and has complained of fatigue.? You do remember that in 2016 he had a CAT scan performed which demonstrated coronary calcification and subsequently went on to have an echocardiogram which demonstrated preserved ejection fraction of 65 to 70% and a pharmacologic stress test which demonstrated no evidence of ischemia.? He presented to the emergency room this time his EKG did not demonstrate any significant changes but his enzymes were noted to be abnormal and cardiology was called for further evaluation and management. [facility]LY [facility] Medical History Anxiety BPH (benign prostatic hyperplasia) Cervical stenosis of spine Coronary artery calcification seen on CAT scan (12/2016) Essential hypertension History of hyperthyroidism Hyperlipidemia Insomnia Neuropathy Obesity Obstructive sleep apnea Osteoarthritis Restless legs syndrome (RLS) Home Medications carbidopa 25 mg-levodopa 100 mg tablet 1 tab PO QHS 06/21/21 [History Last Taken 08/24/22] diphenhydramine 25 mg-acetaminophen 500 mg tablet (Tylenol PM Extra Strength) 1 tab PO QHS PRN Pain 07/05/21 [History Last Taken 08/22/22] melatonin 5 mg capsule 5 mg PO QHS 07/05/21 [History Last Taken 08/24/22] doxazosin 4 mg tablet 4 mg PO QHS #90 tabs 03/03/22 [Rx Last Taken 08/24/22] gabapentin 300 mg capsule 300 mg PO QHS 08/25/22 [History Last Taken 08/24/22] Allergy/AdvReac Type Severity Reaction Status Date / Time acetaminophen [From Percocet] AdvReac unknown Verified 08/24/22 23:13 codeine AdvReac unknown Verified 08/24/22 23:13 oxycodone [From Percocet] AdvReac unknown Verified 08/24/22 23:13 Family History Sister Arthritis Mother Hypertension Other CVA (cerebral vascular accident) Surgical History H/O cervical spine surgery (02/2020) History of carpal tunnel surgery History of herniorrhaphy History of knee replacement History of thyroid surgery History of transurethral resection of prostate (09/2019) Trigger finger Social History Smoking Status: Former smoker quit date: 08/17/97 alcohol intake: current alcohol intake frequency: a few times a week substance use type: does not use ROS Constitutional Constitutional: Denies fever(s) or weight loss Eyes Eyes: Reports systems reviewed and no addt'l complaints, except as documented ENT HEENT: Reports systems reviewed and no addt'l complaints, except as documented Cardiovascular Cardiovascular: Reports chest pain at rest and chest pain with activity; Denies dyspnea at rest, dyspnea on exertion, edema, palpitations or paroxysmal nocturnal dyspnea Respiratory/Chest Respiratory/Chest: Reports dyspnea on exertion; Denies productive cough, shortness of breath at rest or shortness of breath with exertion Gastrointestinal Gastrointestinal: Denies change in bowel habits, nausea, vomiting or weight changes Genitourinary Genitourinary: Denies difficulty urinating Musculoskeletal Musculoskeletal: Denies joint stiffness or muscle weakness Integumentary Integumentary: Denies lesions Neurologic Neurologic: Denies dizziness or syncope Psychiatric Psychiatric: Denies anxiety Endocrine Endocrinology: Denies excessive sweating or fatigue Hematologic/Lymphatic Hematologic/Lymphatic: Denies anemia Allergic/Immunologic Allergic/Immunologic: Denies seasonal rhinorrhea Physical Exam Const alert, oriented x3 and no apparent distress General Appearance: cooperative HEENT hearing grossly normal bilaterally Head and Scalp: atraumatic Eyes EOMs intact bilaterally Neck General: normal visual inspection Chest inspection of chest normal and palpation of chest normal Resp normal respiratory effort Auscultation: clear to auscultation bilaterally Cardio regular rate, regular rhythm, S1 normal heart sound and S2 normal heart sound Jugular Venous Distention: JVD GI normal to inspection, nondistended, normoactive bowel sounds Extremity normal capillary refill and no pedal edema Peripheral Pulses: Yes pulses 2+ throughout and femoral pulses present Skin no rashes or lesions noted Neuro oriented x3 and CN's II-XII intact bilaterally Psych Appearance: grossly normal and appropriate Risk Stratification Risk Stratification Applicable: Yes Age >/= 65: Yes >/= 3 CAD Risk Factors (HTN, HLD, DM, family hx of CAD, or current smoker): No Aspirin Use in the Past 7 Days: Yes Severe Angina (>/= episodes in 24 hours): Yes EKG ST Changes >/= 0.5mm: No Positive Cardiac Marker: Yes YESSI Risk Stratification Score: 4 YESSI % Risk: 20% Risk Objective Data Vital Signs: Vital Signs Temp Pulse Resp BP Pulse Ox O2 Del Method 97.6 F L 70 16 133/83 H 95 Room Air 08/25/22 08:31 08/25/22 08:31 08/25/22 08:31 08/25/22 08:31 08/25/22 08:31 08/25/22 08:46 Oxygen Delivery Method Room Air Weight: 217 lb 13.067 oz Body Mass Index (BMI) 31.2 Lab / Micro Data Result Diagrams: 08/25/22 05:41 08/25/22 05:41 Labs: Laboratory Results - last 24 hr 08/24/22 23:25: WBC 7.3, RBC 4.84, Hgb 14.9, Hct 43.8, MCV 90.5, MCH 30.8, MCHC 34.0, RDW Std Deviation 44.2 H, RDW Coeff of Danny 13.2, Plt Count 338, MPV 9.3, Immature Gran % (Auto) 0.400, Neut % (Auto) 53.7, Lymph % (Auto) 28.4, Burnett % (Auto) 13.5 H, Eos % (Auto) 3.3, Baso % (Auto) 0.7, Absolute Neuts (auto) 3.9, Absolute Lymphs (auto) 2.07, Nucleated RBC % 0 08/24/22 23:25: Sodium 141, Potassium 3.8, Chloride 109 H, Carbon Dioxide 26.0, Anion Gap 6, BUN 18, Creatinine 1.18, Estim Creat Clear Calc 54.99, Est GFR (MDRD) Af Amer 77, Est GFR (MDRD) Non-Af 64, BUN/Creatinine Ratio 15.3, Glucose 107 H, Calcium 9.0, Troponin I High Sens 32 08/25/22 01:37: Troponin I High Sens 429 H* 08/25/22 05:41: WBC 9.1, RBC 4.25 L, Hgb 12.7 L, Hct 39.0 L, MCV 91.8, MCH 29.9, MCHC 32.6, RDW Std Deviation 45.6 H, RDW Coeff of Danny 13.4, Plt Count 307, MPV 9.2, Immature Gran % (Auto) 0.300, Neut % (Auto) 63.3, Lymph % (Auto) 21.9, Burnett % (Auto) 11.5 H, Eos % (Auto) 2.2, Baso % (Auto) 0.8, Absolute Neuts (auto) 5.7, Absolute Lymphs (auto) 1.98, Nucleated RBC % 0 08/25/22 05:41: Sodium 142, Potassium 4.0, Chloride 110 H, Carbon Dioxide 28.0, Anion Gap 4 L, BUN 19 H, Creatinine 1.13, Estim Creat Clear Calc 57.42, Est GFR (MDRD) Af Amer 81, Est GFR (MDRD) Non-Af 67, BUN/Creatinine Ratio 16.8, Glucose 102, Calcium 8.6, Troponin I High Sens 1086 H* Rhythm Strip Rhythm Strip: Sinus Rhythm Rate: 82 Ectopy: None Cardiology Labs/Tests 08/24/22 23:25: WBC 7.3, RBC 4.84, Hgb 14.9, Hct 43.8, MCV 90.5, MCH 30.8, MCHC 34.0, Plt Count 338, MPV 9.3, Immature Gran % (Auto) 0.400, Neut % (Auto) 53.7, Lymph % (Auto) 28.4, Burnett % (Auto) 13.5 H, Eos % (Auto) 3.3, Baso % (Auto) 0.7, Absolute Neuts (auto) 3.9, Nucleated RBC % 0 08/24/22 23:25: Sodium 141, Potassium 3.8, Chloride 109 H, Carbon Dioxide 26.0, Anion Gap 6, BUN 18, Creatinine 1.18, Est GFR (MDRD) Af Amer 77, Est GFR (MDRD) Non-Af 64, BUN/Creatinine Ratio 15.3, Glucose 107 H, Calcium 9.0 08/25/22 05:41: WBC 9.1, RBC 4.25 L, Hgb 12.7 L, Hct 39.0 L, MCV 91.8, MCH 29.9, MCHC 32.6, Plt Count 307, MPV 9.2, Immature Gran % (Auto) 0.300, Neut % (Auto) 63.3, Lymph % (Auto) 21.9, Burnett % (Auto) 11.5 H, Eos % (Auto) 2.2, Baso % (Auto) 0.8, Absolute Neuts (auto) 5.7, Nucleated RBC % 0 08/25/22 05:41: Sodium 142, Potassium 4.0, Chloride 110 H, Carbon Dioxide 28.0, Anion Gap 4 L, BUN 19 H, Creatinine 1.13, Est GFR (MDRD) Af Amer 81, Est GFR (MDRD) Non-Af 67, BUN/Creatinine Ratio 16.8, Glucose 102, Calcium 8.6 Rhythm: EKG: ECHO: Stress Test: Cardiac Cath: PCI: CT Surgery: Holter monitor: EPS: PPM: CXR: Chest CT Scan: Radiography Diagnostic Testing: Radiology Impression Chest X-Ray 08/24/22 23:36 IMPRESSION: Borderline cardiomegaly and mild pulmonary vascular congestion. Electronically Signed: Naya Shaw MD at 0:07 EST Reading Location ID and State: [facility] / [place] , Service support ,
--- NOTE | 2022-08-25 11:42 | CL.D_ITS ---
Patient Name: LUÍS HERNANDEZ Study Date: 08/25/2022 Performing: You Hooper MD Ht: 70 inches 177.8 cm : 1945 Wt: 217.82 lbs 98.8 kg Age: 77 Gender: male BSA: 2.16 PROCEDURE(S) PERFORMED DC01-(60529)LHC/COR/LV CLINICAL PROFILE AND INDICATIONS Indications: ACS <= 24 hrs Heart Failure: None Stress/Imaging Stress/Image Study Performed: No CAD Presentations: Unstable angina. Non-STEMI. Symptom onset Date/Time: 08/24/22 Time Not Available CONCLUSIONS Severe single-vessel disease involving the right coronary artery with mild disease in the LAD. RECOMMENDATIONS Referred for immediate PCI DESCRIPTION OF PROCEDURE The patient arrived to the procedure lab. The risks and benefits of the procedure as well as a full description of our services here and current unavailability of surgical backup were fully explained to the patient and/or their significant other prior to the catheterization. The Timeout was completed, verifying the correct patient and procedure. The patient's procedural site was prepped and draped in the usual fashion. Local anesthetic was given subcutaneously to right radial region with Lidocaine 2%. Using a modified Seldinger technique, arterial access was obtained via the right radial artery, a 6Fr sheath was inserted. Left Coronary Artery selective angiography was performed in multiple views using a 5 Fr. 4.0 [place] catheter. Right Coronary Artery selective angiography was then performed in multiple views using a 5 Fr. 4.0 [place] catheter. Left Ventriculography was performed in FONTANEZ projection using a 5 Fr. Pigtail catheter. LV to AO pullback pressures were then recorded. CORONARY ANGIOGRAPHY DOMINANCE: Right Dominant LEFT HEART ASSESSMENT Left Ventricular Ejection Fraction: by LV Gram 60 % Normal LV wall motion Normal Left Ventricular systolic function LEFT MAIN: Angiographically normal LEFT ANTERIOR DESCENDING ARTERY: Mild luminal irregularities less than 30% DIAGONAL 1: Proximal - Moderate luminal irregularities up to 50% CIRCUMFLEX ARTERY: Mild luminal irregularities COMPLICATIONS PROCEDURE MEDICATIONS Fentanyl 50 mcg IV Versed 1 mg IV Versed 1 mg IV Oxygen: 2 L/min via nasal cannula Oxygen: 4 L/min via nasal cannula Brilinta 180 mg PO @ 08/25/2022 11:39:24 Heparin given IA 08/25/2022 11:24:27 Heparin 7000 unit(s) IV 08/25/2022 11:40:12 Verapamil 2.5mg, Ntg 100mcgs, 3000 units of Heparin given IA 08/25/2022 11:24:27 SUMMARY OF HEMODYNAMIC DATA Time AIR REST ECG 11:04:17 Art 156/71 (102) 11:22:33 AO 117/71 (91) SA 11:25:38 LV 108/1, 18 11:32:02 LV 105/0, 14 11:32:10 LV 110/3, 11 11:32:44 LV 108/5, 10 11:32:52 LVp 110/6, 18 11:32:56 AOp 0/0 (8) 11:33:03 Signed By You Hooper MD On 08/25/2022 11:41:37 You Hooper MD
--- NOTE | 2022-08-25 12:29 | CL.I_ITS ---
Patient Name: LUÍS HERNANDEZ Study Date: 08/25/2022 Performing: Chandana Gardner MD Ht: 70 inches 177.8 cm : 1945 Wt: 217.82 lbs 98.8 kg Age: 77 Gender: male BSA: 2.16 PROCEDURE(S) PERFORMED IC12-([id number])GIUSEPPE W/WO PTCA, SINGLE CORONARY ARTERY CLINICAL PROFILE AND CO-MORBIDITIES Indications: ACS <= 24 hrs Heart Failure: None Stress/Imaging Stress/Image Study Performed: No CAD Presentations: Unstable angina. Non-STEMI. Symptom onset Date/Time: 08/24/22 Time Not Available CONCLUSIONS Successful PTCA/GIUSEPPE Prox RCA using Resolute Jewett 4.0x18 mm RECOMMENDATIONS ASA Indefinitley Plavix for at least 12 months DESCRIPTION OF PROCEDURE The patient arrived to the procedure lab. The risks and benefits of the procedure as well as a full description of our services here and current unavailability of surgical backup were fully explained to the patient and/or their significant other prior to the catheterization. The Timeout was completed, verifying the correct patient and procedure. The patient's procedural site was prepped and draped in the usual fashion. Local anesthetic was given subcutaneously to right radial region with Lidocaine 2% Using a modified Seldinger technique,arterial access was obtained via the right radial artery, a 6Fr sheath was inserted. Left Coronary Artery selective angiography was performed in multiple views using a 5 Fr. 4.0 [place] catheter. Right Coronary Artery selective angiography was then performed in multiple views using a 5 Fr. 4.0 [place] catheter. Left Ventriculography was performed in FONTANEZ projection using a 5 Fr. Pigtail catheter. LV to AO pullback pressures were then recorded.The images were reviewed and options discussed. A decision was then made to proceed with an Intervention, IVUS or other adjunct procedure. JR4 Guide catheter was inserted and engaged into the RCA. Runthrough Guide wire was advanced to the RCA. Resolute Óscar 4.0 x 18 Drug Eluting stent was inserted. Drug Eluting stent was removed intact, failed to cross lesion Emerge 3.0 x 15 Balloon catheter was inserted. Balloon catheter was advanced across lesion in the right coronary, proximal. PTCA balloon inflated at 6 atms for 8 secs. PTCA balloon inflated at 10 atms for 12 secs. PTCA balloon inflated at 6 atms for 6 secs. PTCA balloon inflated at 10 atms for 5 secs. Resolute Jewett 4.0 x 18 Drug Eluting stent was reinserted Drug Eluting stent was advanced across the lesion in the right coronary, proximal. Angiogram performed post stent deployment. NC Emerge 4.0 x 8 Balloon catheter was inserted. Balloon catheter was advanced across lesion in the right coronary, proximal. Angiogram performed post balloon dilatation. Angiogram performed post balloon dilatation. The arterial sheath was pulled and a TR Band was applied for hemostasis INTERVENTION INFORMATION LESION SITE: RCA (Proximal) Lesion Complexity: Non-High/Non-C, lesion length: 16 mm, culprit lesion: Yes Pre Stenosis: 95 % Pre intervention YESSI flow: 3 PROCEDURE: Drug Eluting Stent with pre and post dilatation Post Stenosis: 0 % Post intervention YESSI flow: 3 Lesion Devices: Cordis 6 Fr JR4 100cm Guide Catheter Terumo .014 180cm Runthrough Extra Floppy straight Medtronic Resolute Jewett RX GIUSEPPE 4.0x18 Paulino Sci EMERGE MR 3.00x15 BALLOON Paulino Sci NC EMERGE MR 4.00x08 BALLOON COMPLICATIONS No Complications PROCEDURE MEDICATIONS Fentanyl 50 mcg IV Versed 1 mg IV Versed 1 mg IV Oxygen: 2 L/min via nasal cannula Oxygen: 4 L/min via nasal cannula Brilinta 180 mg PO @ 08/25/2022 11:39:24 Heparin given IA 08/25/2022 11:24:27 Heparin 7000 unit(s) IV 08/25/2022 11:40:12 Heparin 3000 unit(s) IV 08/25/2022 12:21:28 Nitro 200 mcg IC 08/25/2022 12:05:29 Verapamil 2.5mg, Ntg 100mcgs, 3000 units of Heparin given IA 08/25/2022 11:24:27 SUMMARY OF HEMODYNAMIC DATA Time AIR REST ECG 11:04:17 Art 156/71 (102) 11:22:33 AO 117/71 (91) SA 11:25:38 LV 108/1, 18 11:32:02 LV 105/0, 14 11:32:10 LV 110/3, 11 11:32:44 LV 108/5, 10 11:32:52 LVp 110/6, 18 11:32:56 AOp 0/0 (8) 11:33:03 AO 132/77 (100) 11:50:31 Signed By Chandana Gardner MD On 08/25/2022 12:28:39 Chandana Gardner MD
--- NOTE | 2022-08-25 13:45 | CRPHASE1 ---
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 Gardner Cardiac Rehabilitation Info Cardiac Rehabilitation Program Information: Cardiac Rehab The cardiac rehab team at [facility] consists of highly skilled exercise physiologists, nurses, respiratory therapists and physicians working together with you. Our purpose is to help you have a full recovery and achieve the goals you set for yourself. Over the years many of our patients have returned to activities they assumed they would never do again! We can help restore your confidence and motivation to make lifestyle changes that can have a significant impact on your health and quality of life! We can help answer questions and concerns you may have about exercise, lifestyle, medications, diet, stress and anxiety which are common following a hospitalization. WE monitor ECG and vital signs during exercise and discuss your progress with you and report to your physician(s). Cardiac Rehab is proven to help reduce readmissions, improve functional capacity and lower recurrence of problems with your heart. Our Cardiac Rehab program is Certified by the [place] [employer]monary [employer] (AACVPR) and Accredited by the [place] [employer] through our [facility]. You can contact us at . We invite you to call us with your questions or to get started in our program. If you have other questions or concerns be sure to ask your physician/provider during your follow-up visit. WE look forward to seeing you!
--- NOTE | 2022-08-25 13:46 | CRPH1.INSTRU ---
General Education CAD and cardiac anatomy and function:: Patient communicates acknowledgment Explanation of diagnoses and procedures:: Patient communicates acknowledgment Sign/Symptoms of SD:: Patient communicates acknowledgment Antiplatelet therapy: Patient communicates acknowledgment Smoking Patient Nicotine/Smoking Risk Factors Are:: Cigarettes Recommendations Include:: Previous smoker; encourage continued cessation Nicotine/Smoking Response Code:: Patient communicates acknowledgment Dyslipidemia Patient Dyslipidemia Risk Factors Are:: Total Cholesterol, Triglycerides, HDL, LDL Recommendations Include:: Lipid profile not available, Therapeutic Lifestyle Change dietary guidelines Dyslipidemia Response Code:: Patient communicates acknowledgment Overweight/Obesity Patient Overweight/Obesity Risk Factors Are:: Obesity - > or = 30 Recommendations Include:: Weight loss of 5-10%, Reduced calorie diet, Exercise 5-7 times/week Overweight/Obesity:: Patient communicates acknowledgment Hypertension Recommendations Include:: Maintain BP <130/85, Decrease/maintain normal body weight, Moderation of ETOH Hypertension:: Patient communicates acknowledgment Heart Disease Recommendations Include:: Educated family members of their risk Heart Disease Response Code:: Patient communicates acknowledgment Diabetes Patient Diabetes Risk Factors Are:: No documented hx of diabetes Diabetes:: Patient communicates acknowledgment Metabolic Syndrome Patient Metabolic Syndrome Risk Factors Are [3 of 5]:: Waist circumference > 35 [female] or 40 [male], Hypertension, Low HDL <40 [male] or < 50 [female] Recommendations Include:: Reinforce compliance to risk factor modifications Metabolic Syndrome Response Code:: Patient communicates acknowledgment Sedentary Patient Sedentary Risk Factors Are:: Lack of regular exercise Recommendations Include:: Aerobic exercise 5-7 times/week for 20-30 minutes continuously, Benefits of regular exercise, Discussed home walking program, Monitored Outpatient Cardiac Rehab Sedentary Response Code:: Patient communicates acknowledgment Stress Recommendations Include:: Identification of stressors, and assessment of coping skills, Stress management techniques Stress Response Code:: Patient communicates acknowledgment
--- NOTE | 2022-08-25 14:47 | CASEMGMT ---
RN CM in to pt room to complete RN CM assessment, pt is off of floor at this time.
[2022-08-25] MEDS: 0.9% Normal Saline 1,000 ML 150 ML IV (16:24)
[2022-08-25 16:44] LABS: ACT Activated Clotting Time 420 sec (74-137)
[2022-08-25 16:45] LABS: ACT Activated Clotting Time 239 sec (74-137)
[2022-08-25] MEDS: Clopidogrel Bisulfate 300 MG Tablet PO (17:28)
[2022-08-25] MEDS: Gabapentin 300 MG Capsule PO (23:32)
[2022-08-25] MEDS: Carbidopa/Levodopa 25/100 Tablet PO (23:32)
[2022-08-25] MEDS: MELATONIN 10 MG TABLET 5 MG PO (23:32)
[2022-08-25] MEDS: Metoprolol Tartrate 25 MG Tablet 12.5 MG PO (23:32)
[2022-08-25] MEDS: Doxazosin 4 MG Tablet PO (23:33)
[2022-08-25] MEDS: Pravastatin 40 MG Tablet PO (23:33)
[2022-08-26 03:46] VITALS: BP 121/71; PULSE 71; RESP 20; TEMP 36.5; O2SAT 96
--- NOTE | 2022-08-26 04:56 | EKG12_ITS ---
Test Reason : AM EKG Blood Pressure : / mmHG Vent. Rate : 070 BPM Atrial Rate : 070 BPM P-R Int : 190 ms QRS Dur : 100 ms QT Int : 424 ms P-R-T Axes : 056 -03 -04 degrees QTc Int : 457 ms Normal sinus rhythm Inferior infarct , age undetermined , cannot be excluded Abnormal ECG Confirmed by SHAMA HENDERSON, BILL ([id number]), website/blog editor TARIK ARCHULETA ([id number]) on 08/27/2022 10:52:07 AM Referred By: Confirmed By:BILL SESAY MD
[2022-08-26 06:20] LABS: Hematocrit 38.8 % (40-54); Hemoglobin 12.8 g/dL (13.0-16.5); Mean Corpuscular Hgb 30.3 pg (27.0-32.0); Mean Corpuscular Volume 91.7 fL (80-94); Mean Platelet Vol. 9.4 fl (6.2-12.0); Platelet Count 283 K/mm3 (150-450); RBC Distribution Width CV 13.6 % (11.6-14.6); RBC Distribution Width SD 45.7 fl (35.1-43.9); Red Blood Count 4.23 M/mm3 (4.6-6.2); White Blood Count 8.4 K/mm3 (4.4-11.0)
[2022-08-26 06:52] LABS: AST(SGOT) 19 U/L (15-37); Alanine Aminotransfer ALT/SGPT 10 U/L (16-61); Albumin, Serum 2.8 g/dL (3.2-5.0); Alkaline Phosphatase 66 U/L (45-117); Anion Gap 8 (5-15); BUN 19 mg/dL (7-18); BUN/Creat Ratio 18.8 RATIO (10-20); Calcium,Total 7.8 mg/dL (8.5-10.1); Chloride 108 mmol/L (98-107); Creatinine, Serum 1.01 mg/dL (0.70-1.30); EST Glomerular Filtration Rate 76 mL/min (>60); Est Glom Filt Rate - Afr Amer 92 mL/min (>60); Estimated Creatinine Clearance 64.25 ml/min; Globulin 2.9 g/dL (2.2-4.2); Glucose 103 mg/dL (74-106); Potassium 3.8 mmol/L (3.5-5.1); Protein, Total 5.7 g/dL (6.4-8.2); Sodium Level 141 mmol/L (136-145)
[2022-08-26 07:34] VITALS: O2SAT 91
--- NOTE | 2022-08-26 07:36 | PCM.PN.CARD ---
Subjective Subjective Patient seen and evaluated. Appears to be doing so well this morning. No complaints. Objective Data Vital Signs: Vital Signs Temp Pulse Resp BP Pulse Ox O2 Del Method 97.7 F L 71 20 H 121/71 H 96 Room Air 08/26/22 03:46 08/26/22 03:46 08/26/22 03:46 08/26/22 03:46 08/26/22 03:46 08/26/22 04:23 Oxygen Delivery Method Room Air Weight: 217 lb 13.067 oz Body Mass Index (BMI) 31.2 Intake & Output: Intake and Output for Last 24 Hours 08/24/22 08/25/22 08/26/22 23:59 23:59 23:59 Intake Total 1117.5 / 1317.5 200 / 200 Output Total 575 / 575 Balance 1117.5 / 1317.5 -375 / -375 Lab / Micro Data Result Diagrams: 08/26/22 05:48 08/26/22 05:48 Labs: Laboratory Results - last 24 hr 08/25/22 11:55: Activated Clotting Time 420 H 08/25/22 12:20: Activated Clotting Time 239 H 08/26/22 05:48: WBC 8.4, RBC 4.23 L, Hgb 12.8 L, Hct 38.8 L, MCV 91.7, MCH 30.3, MCHC 33.0, RDW Std Deviation 45.7 H, RDW Coeff of Danny 13.6, Plt Count 283, MPV 9.4 08/26/22 05:48: Sodium 141, Potassium 3.8, Chloride 108 H, Carbon Dioxide 25.0, Anion Gap 8, BUN 19 H, Creatinine 1.01, Estim Creat Clear Calc 64.25, Est GFR (MDRD) Af Amer 92, Est GFR (MDRD) Non-Af 76, BUN/Creatinine Ratio 18.8, Glucose 103, Calcium 7.8 L, Total Bilirubin 0.50, AST 19, ALT 10 L, Alkaline Phosphatase 66, Total Protein 5.7 L, Albumin 2.8 L, Globulin 2.9, Albumin/Globulin Ratio 1.0 Rhythm Strip Rhythm Strip: Sinus Rhythm Rate: 82 Ectopy: None Cardiology Labs/Tests 08/26/22 05:48: WBC 8.4, RBC 4.23 L, Hgb 12.8 L, Hct 38.8 L, MCV 91.7, MCH 30.3, MCHC 33.0, Plt Count 283, MPV 9.4 08/26/22 05:48: Sodium 141, Potassium 3.8, Chloride 108 H, Carbon Dioxide 25.0, Anion Gap 8, BUN 19 H, Creatinine 1.01, Est GFR (MDRD) Af Amer 92, Est GFR (MDRD) Non-Af 76, BUN/Creatinine Ratio 18.8, Glucose 103, Calcium 7.8 L, Total Bilirubin 0.50 Rhythm: EKG: ECHO: Stress Test: Cardiac Cath: PCI: CT Surgery: Holter monitor: EPS: PPM: CXR: Chest CT Scan: Radiography Diagnostic Testing: Radiology Impression Echocardiogram 08/25/22 02:00 Interpretation Summary Normal LV size. Left ventricular systolic function is normal. The estimated ejection fraction is 60 %. Stage 1 diastolic dysfunction. Contrast injection was performed. Ordering Physician: Otto Arnett Performed By: Ruddy Byrne RCS Physical Exam Const alert, oriented x3 and no apparent distress General Appearance: cooperative HEENT hearing grossly normal bilaterally Head and Scalp: atraumatic Eyes EOMs intact bilaterally Neck General: normal visual inspection Chest inspection of chest normal and palpation of chest normal Resp normal respiratory effort Auscultation: clear to auscultation bilaterally Cardio regular rate, regular rhythm, S1 normal heart sound and S2 normal heart sound Jugular Venous Distention: JVD GI normal to inspection, nondistended, normoactive bowel sounds Extremity normal capillary refill and no pedal edema Peripheral Pulses: Yes pulses 2+ throughout and femoral pulses present Skin no rashes or lesions noted Neuro oriented x3 and CN's II-XII intact bilaterally Psych Appearance: grossly normal and appropriate Assessment & Plan Assessment/Plan (1) NSTEMI, initial episode of care: PLAN: He presents with chest discomfort and is noted to have a non-ST elevation myocardial infarction. Cardiac cath noted the following: Normal left main coronary artery. Left anterior descending artery with mild disease First diagonal vessel with 40% proximal stenosis. Left circumflex artery with mild disease. Dominant right coronary artery with high-grade 95% proximal stenosis. Preserved left ventricular systolic function. He underwent PCI with a drug-eluting stent placed to the proximal right coronary artery. He has been doing well. The plan to be to discharge him on aspirin, Brilinta beta-blockers and statin (2) Essential hypertension: PLAN: He does have a history of hypertension which appears to be well controlled at this time I would not recommend that we make any other major changes at this time. (3) Hyperlipidemia: PLAN: He will continue with aggressive risk factor modification. He will follow-up in my office in 2 to 4 weeks with cardiac rehabilitation as well.
[2022-08-26 08:49] VITALS: BP 134/84; PULSE 78
[2022-08-26] MEDS: Metoprolol Tartrate 25 MG Tablet 12.5 MG PO (08:49)
[2022-08-26] MEDS: Clopidogrel Bisulfate 75 MG Tablet PO (08:49)
[2022-08-26] MEDS: Aspirin 81 MG TAB.CHEW PO (08:49)
[2022-08-26] MEDS: Gabapentin 300 MG Capsule PO (08:50)
[2022-08-26 09:02] VITALS: BP 134/84; PULSE 78; RESP 16; TEMP 36.7; O2SAT 94
--- NOTE | 2022-08-26 10:00 | EKG12_ITS ---
Test Reason : CP Blood Pressure : / mmHG Vent. Rate : 082 BPM Atrial Rate : 082 BPM P-R Int : 176 ms QRS Dur : 094 ms QT Int : 380 ms P-R-T Axes : 063 002 084 degrees QTc Int : 443 ms Normal sinus rhythm Nonspecific ST and T wave abnormality Abnormal ECG When compared with ECG of 14-OCT-2007 13:19, Aberrant conduction is no longer Present ST now depressed in Lateral leads T wave inversion now evident in Lateral leads Confirmed by YOLY HENDERSON, LORA ([id number]), graphics editor TARIK ARCHULETA ([id number]) on 08/26/2022 8:45:19 AM Referred By: BB Confirmed By:LORA FREDERICK MD
--- NOTE | 2022-08-26 10:50 | DCINST_ITS ---
Discharge Instructions Diet Discharge Diet: Low fat / Low cholesterol and 2000 mg Sodium Diet Activity Weight Bearing Status: Weight bearing as tolerated Dressing / Incision Call your doctor if you observe: Fever of 101 or Higher, Coldness, Increased Pain, Numbness or Tingling, Change in Color, Inability to urinate, Inability to have a bowel movement, Shortness of breath, Dizziness, Fainting spells, Swelling in the ankles, Chest pain, Prolonged hiccupping, Increased palpitations (irregular heartbeat), Calf discomfort and Uncontrolled pain Follow Up Care Test Results: Test results from this visit will be discussed in further detail at your follow- up appointment, if applicable. Discharge Plan Admission Admit Date/Time: 08/25/22 08:23 Primary Reason for Your Visit: Non-STEMI Attending Provider: Andrea Eckert Primary Care Provider: Haroldo Hollis Consulting Providers: Otto Arnett ; Karley Aceves Discharge Orders/Prescriptions Prescriptions: New pravastatin 40 mg Tablet 40 mg PO QHS Qty: 30 2RF aspirin 81 mg Tablet,Chewable 81 mg PO DAILY@0800 Qty: 30 2RF metoprolol tartrate 25 mg Tablet 25 mg PO BID Qty: 60 2RF Brilinta 60 mg tablet 60 mg PO BID Qty: 60 3RF Continued melatonin 5 mg capsule 5 mg PO QHS diphenhydramine-acetaminophen [Tylenol PM Extra Strength] 25-500 mg tablet 1 tab PO QHS PRN (Reason: Pain) gabapentin 300 mg capsule 300 mg PO QHS carbidopa-levodopa 25-100 mg tablet 1 tab PO QHS doxazosin 4 mg tablet 4 mg PO QHS Qty: 90 1RF Referrals / Follow Up: You Hooper MD [Med Staff - Active Staff] - Within 2 Weeks (for NSTEMI) Haroldo Hollis MD [Primary Care Provider] - Disposition Disposition (needs filled in before D/C Order can be placed): Home, Self Care
--- NOTE | 2022-08-26 10:54 | DS.PCM_ITS ---
Providers Date of Admission: 08/25/22 Date of Discharge: 08/26/22 Primary Care Physician: Haroldo Hollis MD Consultations 08/25/22 02:15 Consult: Cardiology Routine Consulting Provider: Karley Aceves Reason for Consult: nstemi EMERGENT Consult: No MD Notified: Yes Date Notified: 08/25/22 Time Notified: 02:15 Method of Notification: Verbal Comments:: paged & Dr. Hooper came to floor Reason For Visit: CHEST PAIN Diagnosis Discharge Diagnosis (1) NSTEMI, initial episode of care: Status: Acute Code(s): I21.4 - Non-ST elevation (NSTEMI) myocardial infarction (2) Essential hypertension: Status: Chronic Code(s): I10 - Essential (primary) hypertension (3) Hyperlipidemia: Status: Chronic Code(s): E78.5 - Hyperlipidemia, unspecified Medications at Discharge Home Medications carbidopa 25 mg-levodopa 100 mg tablet 1 tab PO QHS 06/21/21 diphenhydramine 25 mg-acetaminophen 500 mg tablet (Tylenol PM Extra Strength) 1 tab PO QHS PRN Pain 07/05/21 melatonin 5 mg capsule 5 mg PO QHS 07/05/21 doxazosin 4 mg tablet 4 mg PO QHS #90 tabs 03/03/22 gabapentin 300 mg capsule 300 mg PO QHS 08/25/22 aspirin 81 mg chewable tablet 81 mg PO DAILY@0800 #30 tabs 08/26/22 metoprolol tartrate 25 mg tablet 25 mg PO BID #60 tabs 08/26/22 pravastatin 40 mg tablet 40 mg PO QHS #30 tabs 08/26/22 ticagrelor 60 mg tablet (Brilinta) 60 mg PO BID #60 tabs 08/26/22 Hospital Course Summary of Care Provided Hospital Course: This is 77-year-old gentleman was admitted with 2-week history of progressively worsening chest pain, tightness in quality with radiation to interscapular are a. Patient also had dyspnea on exertion on climbing 10 steps with dizziness. 1. Non-STEMI: Patient admitted on PCU floor. Chest pain got better. Troponin was high therefore non-STEMI. EKG shows mild ST depression in lead I and aVL. 2D echo EF 60% with stage I diastolic suggestive of mild chronic diastolic heart failure.. Patient had cardiac cath on 08/25/2022 which showed dominant RCA with h igh-grade 95% proximal stenosis, first diagonal 40% proximal stenosis and LAD with mild disease. Patient had PCI/GIUSEPPE to proximal RCA. Patient is discharged on aspirin, Brilinta, metoprolol and a statin 2. Essential hypertension blood pressure is controlled. 3. Dyslipidemia: Patient is on a statin. Lipid profile ordered. Discharge medication reconciliation done. Discharge follow-up instructions completed. Discharge process discussed with the patient and all questions were answered to patient's satisfaction. Total time spent, exact 35 minutes on discharge meds reconciliation, exami nation, coordination of care with nurses and ancillary staff, review of imaging and blood test and discussion with the patient on follow-up instructions. Laboratory Results 08/25/22 11:55: Activated Clotting Time 420 H 08/25/22 12:20: Activated Clotting Time 239 H 08/26/22 05:48: WBC 8.4, RBC 4.23 L, Hgb 12.8 L, Hct 38.8 L, MCV 91.7, MCH 30.3, MCHC 33.0, RDW Std Deviation 45.7 H, RDW Coeff of Danny 13.6, Plt Count 283, MPV 9.4 08/26/22 05:48: Sodium 141, Potassium 3.8, Chloride 108 H, Carbon Dioxide 25.0, Anion Gap 8, BUN 19 H, Creatinine 1.01, Estim Creat Clear Calc 64.25, Est GFR (MDRD) Af Amer 92, Est GFR (MDRD) Non-Af 76, BUN/Creatinine Ratio 18.8, Glucose 103, Calcium 7.8 L, Total Bilirubin 0.50, AST 19, ALT 10 L, Alkaline Phosphatase 66, Total Protein 5.7 L, Albumin 2.8 L, Globulin 2.9, Albumin/Globulin Ratio 1.0 Physical Exam Narrative Seen and examined. Patient had right radial artery access site. No hematoma. No shortness of breath or chest pain. Ready for discharge. interactive art director shows sinus rhythm. General: Alert, Oriented x3, Cooperative HEENT: Atraumatic, PERRLA, EOMI, Normocephalic Oral: No Gingival or Mucosal Lesions/ Ulcerations Neck: Supple, No JVD, Negative Carotid Bruits Lungs: Air entry equal in bilateral lung bases. No crepitation/rhonchi Cardiovascular: Regular rate, Regular Rhythm, Normal S1, Normal S2, No murmurs Abdomen: Bowel Sounds Present, Soft, Non Tender, Non-Distended : No renal angle tenderness. No suprapubic tenderness. Extremities: No edema, Capillary Refill Less than 3 Seconds Skin: No rashes, No breakdown Musculoskeletal: No Tenderness to Palpation of Joints or Extremities Neurological: Cranial nerves II-XII grossly intact, DTR 2+/4 and Symmetrical, Neuro grossly intact Psych/Mental Status: Normal Affect, Appropriate. Weight / BMI Weight Weight: 217 lb 13.067 oz Body Mass Index (BMI) 31.2 ABG / Lab / Microbiology Data Result Diagrams: 08/26/22 05:48 08/26/22 05:48 Laboratory: Laboratory Results - last 24 hr 08/25/22 11:55: Activated Clotting Time 420 H 08/25/22 12:20: Activated Clotting Time 239 H 08/26/22 05:48: WBC 8.4, RBC 4.23 L, Hgb 12.8 L, Hct 38.8 L, MCV 91.7, MCH 30.3, MCHC 33.0, RDW Std Deviation 45.7 H, RDW Coeff of Danny 13.6, Plt Count 283, MPV 9.4 08/26/22 05:48: Sodium 141, Potassium 3.8, Chloride 108 H, Carbon Dioxide 25.0, Anion Gap 8, BUN 19 H, Creatinine 1.01, Estim Creat Clear Calc 64.25, Est GFR (MDRD) Af Amer 92, Est GFR (MDRD) Non-Af 76, BUN/Creatinine Ratio 18.8, Glucose 103, Calcium 7.8 L, Total Bilirubin 0.50, AST 19, ALT 10 L, Alkaline Phosphatase 66, Total Protein 5.7 L, Albumin 2.8 L, Globulin 2.9, Albumin/Globulin Ratio 1.0 Radiography Diagnostic Testing: Radiology Impression Echocardiogram 08/25/22 02:00 Interpretation Summary Normal LV size. Left ventricular systolic function is normal. The estimated ejection fraction is 60 %. Stage 1 diastolic dysfunction. Contrast injection was performed. Ordering Physician: Otto Arnett Performed By: Ruddy Byrne RCS D/C Instructions Discharge Diet: Low fat / Low cholesterol and 2000 mg Sodium Diet Weight Bearing Status: Weight bearing as tolerated Call your doctor if you observe: Fever of 101 or Higher, Coldness, Increased Pain, Numbness or Tingling, Change in Color, Inability to urinate, Inability to have a bowel movement, Shortness of breath, Dizziness, Fainting spells, Swelling in the ankles, Chest pain, Prolonged hiccupping, Increased palpitations (irregul ar heartbeat), Calf discomfort and Uncontrolled pain Meaningful Use Info Meaningful Use Diagnoses (Choose all that apply): AMI AMI/Post PCI/Angioplasty Aspirin given w/in 24hrs of arrival?: Yes ASA at discharge?: Yes Statins at discharge?: Yes Jesús/ARB at discharge?: Yes Beta Rickie at discharge?: Yes Done w/ Acute [place] measure.: Yes Discharge Plan Admission Admit Date/Time: 08/25/22 08:23 Primary Reason for Your Visit: Non-STEMI Attending Provider: Andrea Eckert Primary Care Provider: Haroldo Hollis Consulting Providers: Otto Arnett ; Karley Aceves Discharge Orders/Prescriptions Prescriptions: New pravastatin 40 mg Tablet 40 mg PO QHS Qty: 30 2RF aspirin 81 mg Tablet,Chewable 81 mg PO DAILY@0800 Qty: 30 2RF metoprolol tartrate 25 mg Tablet 25 mg PO BID Qty: 60 2RF Brilinta 60 mg tablet 60 mg PO BID Qty: 60 3RF Continued melatonin 5 mg capsule 5 mg PO QHS diphenhydramine-acetaminophen [Tylenol PM Extra Strength] 25-500 mg tablet 1 tab PO QHS PRN (Reason: Pain) gabapentin 300 mg capsule 300 mg PO QHS carbidopa-levodopa 25-100 mg tablet 1 tab PO QHS doxazosin 4 mg tablet 4 mg PO QHS Qty: 90 1RF Referrals / Follow Up: You Hooper MD [Med Staff - Active Staff] - Within 2 Weeks (for NSTEMI) Haroldo Hollis MD [Primary Care Provider] - Disposition Disposition (needs filled in before D/C Order can be placed): Home, Self Care Charges/Coding Visit Charges Inpatient E&M: 11445 Disch Hosp >30min
[2022-08-26 11:40] LABS: Cholesterol 155 mg/dL (200); High Density Lipoprotein 40 mg/dL; Triglycerides 134 mg/dL; Very Low Density Lipoprotein 27 mg/dL (5-40)
--- NOTE | 2022-08-26 12:00 | CASEMGMT ---
RN CM Face to Face with patient for initial transition planning/care coordination assessment. RN CM introduced self and role at [facility]. Patient lying in bed, alert and oriented. Patient willing to participate in assessment and is able to answer all questions appropriately. Care providers, pharmacy, and demographics verified. Patient wishes to discharge home, denies need for home health at this time. Patient states he has no further needs or concerns at this time. CM to follow for discharge planning needs that may arise. PCP: Bunny Specialists: Sandie latex caster [facility] Insurance: [employer] Prescription Benefit: yes, Brilinta savings card provided to patient, [facility] call and copay is $47 Living Will/HPOA: yes, Martha Lentz LNOK: Living Arrangements: Patient lives with in a 2 story home with bed and bath on first floor, 1 step to enter the home. Patient states he is independent at home. Transportation: self, DME/HHC: Patient has cpap and pulse ox at home. No previous HHC or SNF Disposition Plan: Patient to discharge home with family support and follow-up plans in place. Joann COSME, RN, CM
[2022-08-26 13:35] VITALS: BP 122/84; PULSE 67; RESP 16; TEMP 36.6; O2SAT 97
== END 2022-08-26 13:42 | disposition home or self-care (01) | DRG 247 ==
LOC: ED 08-25 00:27 → MS2 08-25 05:17 → PCU 08-25 16:19
PROVIDERS: Internal Medicine Cardiovascular Disease; Admitting Provider Hospitalist; Emergency Provider Emergency Medicine; PCP Internal Medicine; Visit Provider Internal Medicine
DX: I21.4 Non-ST elevation (NSTEMI) myocardial infarction (principal); E78.5 Hyperlipidemia, unspecified; I10 Essential (primary) hypertension; I25.10 Atherosclerotic heart disease of native coronary artery without angina pectoris; Z87.891 Personal history of nicotine dependence; Z82.3 Family history of stroke
CPT/HCPCS: 36415; 71045; 80048; 80053; 80061; 84484; 85025; 85027; 85347; 92928; 93005; 93306; 93458; 99152; 99153; 99284; J7030; Q9957; Q9967; A4216; C1769; C1887; C1894; C8929; C9600; J2405

== ENCOUNTER 2022-08-30 20:29 | Emergency (ER) | payer MEDICARE, SELFPAY ==
[2022-08-30 20:30] VITALS: BP 160/89; PULSE 93; RESP 18; TEMP 36.5; O2SAT 100; BMI 29.9
--- NOTE | 2022-08-30 20:56 | EKG12_ITS ---
Test Reason : CP Blood Pressure : / mmHG Vent. Rate : 078 BPM Atrial Rate : 078 BPM P-R Int : 168 ms QRS Dur : 100 ms QT Int : 388 ms P-R-T Axes : 032 -16 000 degrees QTc Int : 442 ms Normal sinus rhythm Inferior infarct , age undetermined Abnormal ECG Confirmed by YOLY HENDERSON, LORA ([id number]), city editor TARIK ARCHULETA ([id number]) on 09/01/2022 11:36:30 AM Referred By: GEMMA Confirmed By:LORA FREDERICK MD
[2022-08-30 22:19] LABS: Bacteria 0 SEEN /hpf (None Seen); Mucous, Urine 0 SEEN /hpf (<or=2+); White Blood Cells 0 SEEN /hpf (0-5)
[2022-08-30 22:25] LABS: Color, Urine Yellow (Yellow); Glucose, Dipstick Normal (Normal); Ketone-Dipstick Negative (Negative); Leukocyte Esterase-Dipstick Negative /ul (Negative); Nitrite-Dipstick Negative (Negative); Occult Blood-Urine 250 /ul (Negative); Protein-Dipstick 30 mg/dl (Negative); Urine Bilirubin Dipstick Negative (Negative); Urine Clarity Sl. Cloudy (Clear); Urine Urobilinogen Normal (Normal)
[2022-08-30 22:25] LABS: Absolute Lymphocyte Count 1.57 X10^3/uL (0.83-4.51); Absolute Neutrophil Count 5.4 X10^3/uL (2.0-7.7); Basophil# 0.06 X10^3/uL; Basophil% 0.7 % (0-1); Eosinophils% 3.6 % (0-5); Hematocrit 42.1 % (40-54); Hemoglobin 13.9 g/dL (13.0-16.5); Lymphocyte # 1.57 X10^3/ul (0.83-4.51); Lymphocyte % 18.6 % (19-41); Mean Corpuscular Hgb 29.8 pg (27.0-32.0); Mean Corpuscular Volume 90.3 fL (80-94); Mean Platelet Vol. 9.8 fl (6.2-12.0); Monocyte# 1.03 X10^3/uL; Monocyte% 12.2 % (0-10); NRBC Flagged by Analyzer 0 % (0-5); Neutrophil # 5.43 X10^3/uL (2.7-7.7); Neutrophil % 64.4 % (47-70); Platelet Count 279 K/mm3 (150-450); RBC Distribution Width CV 13.2 % (11.6-14.6); RBC Distribution Width SD 43.4 fl (35.1-43.9); Red Blood Count 4.66 M/mm3 (4.6-6.2); White Blood Count 8.4 K/mm3 (4.4-11.0)
[2022-08-30 22:30] LABS: Amorphous Sediment 1+ URATE; Red Blood Cells-Urine 25-50 SEEN /hpf (0-5); Squamous Epithelial Cells - UA 0-5 SEEN /hpf (0-5)
[2022-08-30 22:41] LABS: Prothrombin Time (Protime)PT. 12.9 SECONDS (11.7-14.9)
[2022-08-30 22:42] LABS: Partial Thromboplast Time 29.3 Seconds (24.1-36.2)
[2022-08-30 22:44] LABS: Anion Gap 8 (5-15); BUN 20 mg/dL (7-18); BUN/Creat Ratio 16.7 RATIO (10-20); Calcium,Total 8.4 mg/dL (8.5-10.1); Chloride 106 mmol/L (98-107); EST Glomerular Filtration Rate 63 mL/min (>60); Est Glom Filt Rate - Afr Amer 76 mL/min (>60); Estimated Creatinine Clearance 54.07 ml/min; Glucose 104 mg/dL (74-106); Potassium 3.7 mmol/L (3.5-5.1); Sodium Level 139 mmol/L (136-145)
--- NOTE | 2022-08-30 23:08 | EDS_ITS ---
HPI History of Present Illness Chief Complaint: Complaint Narrative Narrative: Patient is a 77-year-old male with past medical history of hypertension and NSTEMI who recently underwent a heart cath on August 25. He also has history of BPH and underwent a TURP procedure roughly 2 years ago. He states he was started on Brilinta and a baby aspirin secondary to the recent heart catheterization. He reports has been doing well for 5 days but today he urinated and it was bloody in nature and secondary to this he comes in for evaluation. He denies any pain with urination he denies any difficulty urinating and he denies any lightheadedness or dizziness. [facility] Medical History (Updated 08/30/22 @ 23:[address] Yeyo Christopher, DO) Anxiety Atherosclerosis of coronary artery of [place] heart without angina pectoris BPH (benign prostatic hyperplasia) Cervical stenosis of spine Coronary artery calcification seen on CAT scan (12/2016) Essential hypertension History of hyperthyroidism Hyperlipidemia Insomnia Neuropathy Obesity Obstructive sleep apnea Osteoarthritis Restless legs syndrome (RLS) Home Medications carbidopa 25 mg-levodopa 100 mg tablet 1 tab PO QHS parkinsons 06/21/21 [History Last Taken 08/24/22] diphenhydramine 25 mg-acetaminophen 500 mg tablet (Tylenol PM Extra Strength) 1 tab PO QHS PRN Pain 07/05/21 [History Last Taken 08/22/22] melatonin 5 mg capsule 5 mg PO QHS sleep 07/05/21 [History Last Taken 08/24/22] doxazosin 4 mg tablet 4 mg PO QHS #90 tabs 03/03/22 [Rx Last Taken 08/24/22] gabapentin 300 mg capsule 300 mg PO QHS nerve pain 08/25/22 [History Last Taken 08/24/22] aspirin 81 mg chewable tablet 81 mg PO DAILY@0800 #30 tabs 08/26/22 [Rx Last Taken Unknown] metoprolol tartrate 25 mg tablet 25 mg PO BID #60 tabs 08/26/22 [Rx Last Taken Unknown] pravastatin 40 mg tablet 40 mg PO QHS #30 tabs 08/26/22 [Rx Last Taken Unknown] ticagrelor 60 mg tablet (Brilinta) 60 mg PO BID #60 tabs 08/26/22 [Rx Last Taken Unknown] Allergy/AdvReac Type Severity Reaction Status Date / Time acetaminophen [From Percocet] AdvReac unknown Verified 08/30/22 20:30 codeine AdvReac unknown Verified 08/30/22 20:30 oxycodone [From Percocet] AdvReac unknown Verified 08/30/22 20:30 Family History Sister Arthritis Mother Hypertension Other CVA (cerebral vascular accident) Surgical History (Updated 08/25/22 @ 14:37 by Jonna Garcia) H/O cervical spine surgery (02/2020) History of carpal tunnel surgery History of coronary artery stent placement (~08/25/22) History of herniorrhaphy History of knee replacement History of thyroid surgery History of transurethral resection of prostate (09/2019) Trigger finger Social History Smoking Status: Never smoker alcohol intake: current alcohol intake frequency: a few times a week substance use type: does not use ROS ROS ED Constitutional Constitutional ED: Denies chills or fever(s) ENT ENT ED: Denies sore throat Cardiovascular Cardiovascular: Denies chest pain Respiratory/Chest Respiratory/Chest: Denies cough or dyspnea Gastrointestinal Gastrointestinal: Denies abdominal pain, diarrhea, nausea or vomiting Genitourinary Genitourinary ED: Reports hematuria; Denies dysuria or urinary frequency Musculoskeletal Musculoskeletal: Denies back pain or myalgias Integumentary Denies rash Neurologic Neurologic: Denies headache(s) Hematologic/Lymphatic Hematologic/Lymphatic: Reports easy bleeding and easy bruising EXAM Physical Exam Const Vital Signs: 08/30/22 20:30 Temperature 97.7 F L Temperature Source Temporal Pulse Rate 93 Respiratory Rate 18 Blood Pressure 160/89 H Blood Pressure Mean 112 Pulse Ox 100 Oxygen Delivery Method Room Air Positive well nourished and well developed General Appearance ED: well developed HEENT Reports moist mucous membranes Eyes PERRL and EOMs intact bilaterally General Eye ED: Negative for pale conjunctiva Neck supple Resp normal respiratory effort and clear to auscultation bilaterally Cardio regular rate and regular rhythm Rate: other Other Details: Radial pulses are plus 2 out of 4 bilaterally are equal and symmetric GI normal to inspection, nondistended, normoactive bowel sounds, non-tender, non- distended and no masses GI Narrative: No voluntary guarding or rigidity. No pulsatile mass or fluid with. No organomegaly to suggest urinary retention Auscultation: normoactive bowel sounds Palpation: soft Narrative: No blood or discharge at the urethral meatus no testicular masses or swelling noted no overlying soft tissue changes to suggest Sweta's gangrene. Back/Spine no CVA tenderness Extremity normal to inspection Neuro oriented x3 and CN's II-XII intact bilaterally Sensorium / Orientation: alert Psych mental status grossly normal Skin no rashes or lesions noted MDM MDM MDM Narrative Medical decision making narrative: Patient presented to the ER with stable vitals and a soft nonsurgical abdomen. He did have gross hematuria present on the urine sample provided. However despite this he had no CVA pain and therefore I felt that this was most likely not related to a kidney stone and elected not to perform a CT scan. Basic blood work was obtained which showed a stable H&H as well as platelet count and bleeding times. Urine showed no signs of infection. We discussed placing a catheter and providing irrigation. However the patient states that he is urinated 3 times since coming to the ER and the urine seems to be lightening in color. Therefore he does not want a Ellison catheter placed as the urine is showing signs of improvement and he still able to urinate. At this time as patient is not having acute kidney injury acute blood loss anemia or severe electrolyte derangement or signs of urosepsis he does not need placed in the hospital. He can follow-up with urology for repeat evaluation and agrees to return if symptoms fail to improve or worsen. Lab Data Attestation: I reviewed the patient's lab results. Labs: Laboratory Results - last 24 hr 08/30/22 08/30/22 08/30/22 20:45 20:50 20:50 WBC 8.4 RBC 4.66 Hgb 13.9 Hct 42.1 MCV 90.3 MCH 29.8 MCHC 33.0 RDW Std Deviation 43.4 RDW Coeff of Danny 13.2 Plt Count 279 MPV 9.8 Immature Gran % (Auto) 0.500 Neut % (Auto) 64.4 Lymph % (Auto) 18.6 L [place] % (Auto) 12.2 H Eos % (Auto) 3.6 Baso % (Auto) 0.7 Absolute Neuts (auto) 5.4 Absolute Lymphs (auto) 1.57 Nucleated RBC % 0 PT 12.9 INR 1.0 APTT 29.3 Sodium Potassium Chloride Carbon Dioxide Anion Gap BUN Creatinine Estim Creat Clear Calc Est GFR (MDRD) Af Amer Est GFR (MDRD) Non-Af BUN/Creatinine Ratio Glucose Calcium Urine Color Yellow Urine Clarity Sl. Cloudy Urine pH 6.0 Ur Specific [place] 1.010 Urine Protein 30 H Urine Glucose (UA) Normal Urine Ketones Negative Urine Occult Blood 250 H Urine Nitrite Negative Urine Bilirubin Negative Urine Urobilinogen Normal Ur Leukocyte Esterase Negative Urine RBC 25-50 SEEN Urine WBC 0 SEEN Ur Squamous Epith Cells 0-5 SEEN Amorphous Sediment 1+ URATE Urine Bacteria 0 SEEN Urine Mucus 0 SEEN 08/30/22 20:50 WBC RBC Hgb Hct MCV MCH MCHC RDW Std Deviation RDW Coeff of Danny Plt Count MPV Immature Gran % (Auto) Neut % (Auto) Lymph % (Auto) [place] % (Auto) Eos % (Auto) Baso % (Auto) Absolute Neuts (auto) Absolute Lymphs (auto) Nucleated RBC % PT INR APTT Sodium 139 Potassium 3.7 Chloride 106 Carbon Dioxide 25.0 Anion Gap 8 BUN 20 H Creatinine 1.20 Estim Creat Clear Calc 54.07 Est GFR (MDRD) Af Amer 76 Est GFR (MDRD) Non-Af 63 BUN/Creatinine Ratio 16.7 Glucose 104 Calcium 8.4 L Urine Color Urine Clarity Urine pH Ur Specific [place] Urine Protein Urine Glucose (UA) Urine Ketones Urine Occult Blood Urine Nitrite Urine Bilirubin Urine Urobilinogen Ur Leukocyte Esterase Urine RBC Urine WBC Ur Squamous Epith Cells Amorphous Sediment Urine Bacteria Urine Mucus Discharge Plan Triage Chief Complaint: Complaint ED Provider: Yeyo Christopher Dx/Rx/DC Orders Clinical Impression: Hematuria, Essential hypertension, BPH (benign prostatic hyperplasia) Instructions: ED Hematuria Prescriptions: No Action melatonin 5 mg capsule 5 mg PO QHS diphenhydramine-acetaminophen [Tylenol PM Extra Strength] 25-500 mg tablet 1 tab PO QHS PRN (Reason: Pain) gabapentin 300 mg capsule 300 mg PO QHS pravastatin 40 mg Tablet 40 mg PO QHS Qty: 30 2RF aspirin 81 mg Tablet,Chewable 81 mg PO DAILY@0800 Qty: 30 2RF metoprolol tartrate 25 mg Tablet 25 mg PO BID Qty: 60 2RF Brilinta 60 mg tablet 60 mg PO BID Qty: 60 3RF carbidopa-levodopa 25-100 mg tablet 1 tab PO QHS doxazosin 4 mg tablet 4 mg PO QHS Qty: 90 1RF Primary Care Provider: Haroldo Hollis Referrals: Deion Dunn MD [Med Staff - Active Staff] - Haroldo Hollis MD [Primary Care Provider] - Activity Restrictions/Additional Instructions: Please follow-up with urology for repeat evaluation. If you develop lightheaded or dizziness or feel you are going to pass out or have worsening of bleeding please return to the ER for repeat evaluation Disposition Disposition: Home, Self Care Discharge Date/Time: 08/30/22 23:18
== END 2022-08-30 23:18 | disposition home or self-care (01) ==
PROVIDERS: Emergency Provider Emergency Medicine; PCP Internal Medicine; Visit Provider Emergency Medicine
DX: R31.0 Gross hematuria (principal); N40.0 Benign prostatic hyperplasia without lower urinary tract symptoms; I25.10 Atherosclerotic heart disease of native coronary artery without angina pectoris; I10 Essential (primary) hypertension; E78.5 Hyperlipidemia, unspecified; I25.2 Old myocardial infarction; G62.9 Polyneuropathy, unspecified; G25.81 Restless legs syndrome; G47.33 Obstructive sleep apnea (adult) (pediatric); E66.9 Obesity, unspecified; M19.90 Unspecified osteoarthritis, unspecified site; Z79.02 Long term (current) use of antithrombotics/antiplatelets; Z79.82 Long term (current) use of aspirin; Z79.899 Other long term (current) drug therapy
CPT/HCPCS: 80048; 81001; 85025; 85610; 85730; 93005; 99283; J7040; A4216

== ENCOUNTER → 2022-09-03 | Outpatient (CLI) | payer MEDICARE, SELFPAY ==
--- NOTE | 2022-09-03 12:55 | PCM.CR.HP2 ---
CR - History & Physical - General Arrival date:: 09/03/22 Arrival time:: 12:55 Date of Referral:: 08/25/22 Date of CR Evaluation:: 09/03/22 Referring Physician: Dr. You Hooper Primary Diagnosis: PCI with coronary stent, NonSTEMI - History of Present Cardiac Event Onset Date: Enter Onset Date of cardiac illnesses in Comment field below PTCA or coronary stenting:: Yes - 08/25/22 Prox RCA - Sleep Disorder Evaluation Hx of Sleep Apnea: Yes History of Hypertension (for STOP score): Yes - Medications Home Medications: Ambulatory Orders Medication Instructions Recorded carbidopa 25 mg-levodopa 100 mg 1 tab PO QHS parkinsons 06/21/21 tablet diphenhydramine 25 1 tab PO QHS PRN Pain 07/05/21 mg-acetaminophen 500 mg tablet (Tylenol PM Extra Strength) melatonin 5 mg capsule 5 mg PO QHS sleep 07/05/21 doxazosin 4 mg tablet 4 mg PO QHS #90 tabs 03/03/22 gabapentin 300 mg capsule 300 mg PO QHS nerve pain 08/25/22 aspirin 81 mg chewable tablet 81 mg PO DAILY@0800 #30 tabs 08/26/22 metoprolol tartrate 25 mg tablet 25 mg PO BID #60 tabs 08/26/22 pravastatin 40 mg tablet 40 mg PO QHS #30 tabs 08/26/22 ticagrelor 60 mg tablet (Brilinta) 60 mg PO BID #60 tabs 08/26/22 - Allergies Allergies/Adverse Reactions: Allergies acetaminophen [From Percocet] Adverse Reaction (Verified 08/30/22 20:30) unknown codeine Adverse Reaction (Verified 08/30/22 20:30) unknown oxycodone [From Percocet] Adverse Reaction (Verified 08/30/22 20:30) unknown Advanced Directives - Advanced Directives Power of Perforator Operator: Yes Living Will: Yes Advance Directives Information Provided: Yes Advance Directives on File: No DNR Order?:: No Past Medical History - Covid-19 Screening 65 years or older:: Yes Has a serious heart condition:: Yes - Past Medical Illness Medical History: Past Medical History (Last Updated 08/25/22 @ 14:37 by Jonna Garcia) Anxiety F41.9 Atherosclerosis of coronary artery of [place] heart without angina pectoris I25.10 BPH (benign prostatic hyperplasia) N40.0 Cervical stenosis of spine M48.02 Coronary artery calcification seen on CAT scan Onset Date: 12/2016 I25.10 Essential hypertension I10 History of hyperthyroidism Z86.39 Hyperlipidemia E78.5 Insomnia G47.00 Neuropathy G62.9 NSTEMI, initial episode of care I21.4 Obesity E66.9 Obstructive sleep apnea G47.33 Osteoarthritis M19.90 Restless legs syndrome (RLS) G25.81 - Past Surgical History Surgical History: Past Surgical History (Last Updated 08/25/22 @ 14:37 by Jonna Garcia) H/O cervical spine surgery Onset Date: 02/2020 Z98.890 History of carpal tunnel surgery Z98.890 History of coronary artery stent placement Onset Date: ~08/25/22 Z95.5 PTCA/GIUSEPPE Prox RCA Resolute Óscar 4.0x18mm History of herniorrhaphy Z98.890, Z87.19 History of knee replacement Z96.659 Bilateral History of thyroid surgery Z98.890 History of transurethral resection of prostate Onset Date: 09/2019 Z98.890, Z90.79 Trigger finger M65.30 repaired - Family History Summary Family History: Family History (Last Reviewed 08/25/22 @ 09:[address] You Hooper MD) Sister Arthritis Mother Hypertension Other CVA (cerebral vascular accident) Social History - Smoking History Years Smokin Packs Smoked per Day: 1 - stopped 25 years ago Hx Tobacco Use: Yes Hx Smoking Exposure: No - Alcohol Use Alcohol Usage: Yes - couple times a week - Substance Abuse Hx Substance Use: No - Occupation Occupation (List type of work in comments):: Employed Hours worked per day:: 2 - Hobbies, Recreation, Social Activities Hobbies: Other - stamps Recreational Activities: I am able to engage in all my recreational activities Social Environment - Status Marital Status: - Current Living Arrangements Living Environment:: Spouse - Children How many children do you have?: 5 Do any of your children live nearby?: Yes - Safety Do you feel safe in your surroundings?: Yes - Assistance Do you need any assistance at home?: no Review of Systems - Review of Systems Hints: Right click = Denies (Slash). Left click = Reports ([place]) Review of Present Symptoms: Reports: Shortness of Breath at Rest, Shortness of Breath with Exertion, Angina, Dizziness/Lightheadedness, Fatigue, Appetite - Normal, Sleep - Normal. Denies: PVD, Operative Discomfort, Wound Healing, Heart Arrhythmia/Irregularities, Appetite - Special Diet, Sexual Changes - Pain Is Patient Pain Free?: No Pain Location: neck Pain Level: 10/24 Risk Factor Assessment - Vital Signs Pulse Ox: 98 - Pulse Pulse Rate: 64 Pulse Rhythm: Irregular - Hypertension Blood Pressure Sitting - Left Arm: 120/66 - Stress Stress: Recent - Diabetes Nutrition Referral for Diabetes: No - Obesity Height: 5 ft 10.5 in Weight:: 98.43 kg Weight in Pounds: 217.0 lbs Body Mass Index (BMI): 30.7 Nutritional Referral for Obesity: Yes - Physical Inactivity Physical Inactivity: None - Risk Stratification Risk Guidelines: Moderate Risk: Risk Factor for Smoking, Risk Factor for Diabetes, Risk Factor for Obesity, Risk Factor for Sedentary Lifestyle, Risk Factor for Depression, Highest Risk: Risk Factor for Dyslipidemia, Risk Factor for Hypertension - Family History Family History: Family History (Last Reviewed 08/25/22 @ 09:[address] You Hooper MD) Sister Arthritis Mother Hypertension Other CVA (cerebral vascular accident) Motivation - Motivation to Participate On a scale of 1 to 10, how prepared are you to commit to attending program?: 8 What do you see as barriers to successfully being able to complete the program?: nothing What do you see as the benefits of succesfully completing the program? In other words, what do you hope to get out of participating in the program?: know limitations, get stronger Are there issues you are dealing with that will interfere with completing the program?: no Do you have a spouse or signficant other, family or friends who will help support you to complete the program?: yes
[2022-09-03 13:27] VITALS: BP 120/66; PULSE 64; O2SAT 98; BMI 30.7
--- NOTE | 2022-09-03 14:07 | CR.ITP_ITS ---
Diagnosis - General Information Admitting Diagnosis: PCI with coronary stent Personal Learning Style:: Audio/Visual Barriers to Learning: Vision Impairment Stage of change r/t lifestyle modifications:: Contemplation Gave educational material for:: Treating Heart Disease, Emotions & Heart Disease, Stress Management & Relaxation, Sleep Disorders & Heart Disease, How The Heart Works, What it means to have Heart Disease, How Coronary Artery Disease is Diagnosed, Heart Procedures, What Heart Medications Do, Risk Factors & Modifications, Living an Active Life, Nutrition - Education/Goals Cardiac Rehabilitation Goals: 1. Maintain the individual as the primary focus of care. 2. To improve the patient's quality of life. 3. Identification of cardiac risk factors and provide cardiac risk factor management. 4. Enhance the psychosocial status of the patient. 5. Reconditioning enough to allow the patient to resume customary activities. 6. Control symptoms of cardiac disease Personal Goals: Initial Assessment: Improve energy level, Improve knowledge of cardiac disease, Improve muscle strength and endurance, Improve diet and eating habits (eat healthier), Control risk factors (learn risk factor modification) Scale for measuring improvement of personal goals: Enter appropriate number in Comments. 2 = Unchanged. 3 = Slightly Better. 4 = Moderate Improvement. 5 = Met my Goal - Diagnosis & Disease Process Outcomes/Goals: Pt IDs own risk factors & lifestyle modifications by Session 10, Verbalizes symptoms of angina & response by session 3., Pt independently manages, Other Additional Outcomes/Goals: Plan/Interventions: Assist Pt to ID & engage in lifestyle modification to reduce CVD risk, Instruct on individual risk factors, Review symptoms of angina & emergency actions, Review secondary diagnosis & identify educational needs., Other see comment 30 day Reassessments:: Not Met 30 day Reassessments:: Not Met 30 day Reassessments:: Not Met 30 day Reassessments:: Not Met Final Reassessments:: Not Met - Safety Referral to Physical Therapy: No Referral to [facility] Case Management: No Fall Risk Assessed:: Yes Assistive Devices:: None Exercise - Initial Assessment - Visit Date of Eval: 09/03/22 - initial eval Mets: Pre-: >3 METS for 30 minutes by discharge, >5 METS for 30 minutes by discharge, >7 METS for 30 minutes by discharge, Unable to meet goal due to: (see comment below) - Physician Prescribed Exercise Modalities: Treadmill, Rower, Airdyne, NuStep, SciFit, Lateral Railroad Passenger Agent Intensity: 60-80% of age predicted maximum heart rate reserve Current METSs:: 3 Target Heart Rate:: 94-108 Resting Blood Pressure: 120/66 EKG Type: NSR ST and T wave abnormality - Outcomes & Goals Goals:: Verbalizes understanding of THR, RPE & goal METS by session 6, Documents in home exercise log/reports 30 min aerobic 5 day/wk by DC, Demonstrates accurate pulse taking by DC, Other additional outcome/goals: see below - Intervention & Plan Exercise Program Goals: Instruct on personal THR & RPE, Instruct on MET level & personal MET goal, Show patient to take own pulse /validate performance until accurate, Instruct on home exercise, Other additional plan/int - Physical Activity Home Exercise Physical Activity - Home Exercise: Safe Exercise, Warm-up, Self-monitoring, Cool-Down, Home Exercise > 30 min Daily, Sitting Time <3 hours/daily - Outcomes & Goals Outcomes/Goals: Demonstrates correct Warm-up/exercise Cool-Down (S3) if = 2.5 METs, Verbalizes symptoms of exercise intolerance by Session 3 (S3), Demonstrate safe equipment use (S3) & follows exercise prescrition (6), Other: See below - Intervention & Plan Plan/Intervention: Instruct warm-up & cool-down if exercising at > 2 METs, Instruct on symptoms of exercise intolerance & actions to take, Instruct & monitor on saf, Assess intial functional capacity & safety risk, Other See below Nutrition - Initial Assessment - Program Goals Nutrition Program Goals: LDL <100 optimal. 100 - 129 Near optimal. 130 - 159 Borderline High. 160 - 189 High. Total Cholesterol <200 desirable. 200 - 239 Borderline High. >/= 240 High. HDL < 40 Low >/=60 High. Triglycerides <150 desirable. <199 optimal. VlDL 5 - 40. HgbA1C <7%. BMI <25 Patient has diagnosis of Hyperlipidemia (ICD E78)?: Yes - Visit Date of Assessment:: 09/03/22 - initial eval - Cholesterol/Lipids (Other Core Measures) Determine presence & major risk factors that modify LDL goal: Cigarette smoking, Hypertension or hypertensive medication, Low HDL cholesterol <40 mg/dL*, Family history of premature CHD in Male < 55 years: female <65 yearsFa, Age men > 45 years; women >/= 55 years Outcomes/Goals: Pt IDs own risk factors & lifestyle modifications by Session 10, Verbalizes symptoms of angina & response by session 3., Pt independently manages, Other Additional Outcomes/Goals: Intervention/Plan: Advocate for lipid panel cholesterol medication if applicable, Instruct on personal lipid levels & lipid goals/NCEP guidelines, Instruct on cholesterol, Other additional plan/int Referral to dietitian:: Yes - medical nutrition therapy - Diabetes (Other Core Measures) Diabetes Type: Not Applicable - Weight Mgt (Other Care) Height: 5 ft 10 in Weight:: 98.43 kg BMI: 31.1 Diagnosis Overweight/Obesity BMI> 30% ICD-10 E66: Yes Diagnosis High BMI/Morbid Obesity BMI> 35% ICD-10 Z68: No Outcomes/Goals: Pt sets, maintains & shows weight loss goal & trend during rehab, Other additional outcomes/goals Intervention/Plan: Instruct on ideal BMI & set weight loss goal w/patient, Ass ist pt to ID & incorporate diet changes for weight loss by S9, Refer to Structured Weight Loss program as appropriate, Encourage goal of using 250- 300dcal per session for weight loss, Other additional plan/interventions - Healthy Eating Habits Will attend diet classes:: Yes Outcomes/Goals:: Consume diet rich in vegs,fruits,whole grain/high fiber,fish,lean meat, Limit sat/trans fats,cholesterol & added salts & sugars, Other additional outcome/goals: Intervention/Plan:: Assess current eating habits, Other Additional plan/interventions - Education Gave educational materials for:: Signs & symptoms of hypoglycemia, Signs & symptoms of hyperglycemia, Relate diabetes to coronary artery disease, Healthy eating Nutrition - 30-Day Assessment Nutrition - 60-Day Assessment Nutrition - 90-Day Assessment Nutrition - Final Assessment Core - Initial Assessment - Visit Date of Eval: 09/03/22 - initital eval - Medication Compliance Preventative Medication(s):: Aspirin, Ticagrelor/P2Y12 inhibitor, Statin/lipid, Beta madiha H/O mental health issues: depression, anxiety, or addiction?: No Doesn?t believe in the benefits of treatment?: No Believes medications are unnecessary or harmful?: No Has a concern about medication side effects?: No Expresses concern over the cost of medications?: No Outcomes/Goals: Verbalizes medications,desired effect & common side effects @ DC, Pt self-reports following medication regimen, Keeps card in wallet w/medications listed by DC, Other additional outcome/goals: Interventions/plans: Instruct on medication effects & side effects, Review medication list w/patient every two weeks, Instruct importance of taking meds as ordered & assist problem solving, Other additional - Tobacco Use Tobacco Use: Non-smoker Do you use smokeless tobacco?: No - Hypertension Hypertension Diagnosis:: Hypertension ICD-10 I10 Resting Blood Pressure:: 120/66 [place] [employer] Hypertension Guidelines: [place] [employer] Hypertension Guidelines. Normal BP Less than 120/80. Elevated BP 120/80. Hypertension Stage 1: BP 130-139/80-89. Hypertesnion Stage 2: BP 140 or higher/90 or higher. Hypertension Crisis: BP higher than 180/120 Outcomes/Goals: Able to verbalize/achieve optimal blood pressure <130/80, Incorporates diet changes & exercise for blood pressure control by DC, Other additional outcomes/goals Interventions/plan: Instruct on optimal blood pressure, hypertension & medications, Instruct on effects of sodium, alcohol, stress, exercise &hypertension, Other additional plan/interventions - Tobacco Cessation Referral Smoking Cessation Referral:: No Individual Education/Counseling:: No Education Schedule Given:: Yes Core - 30-Day Assessment Core - 60-Day Assessment Core - 90 Day Assessment Core - Final Assessment Psychosocial - Initial Assess - VIsit Date of Eval: 09/03/22 - initial eval History of previous Mental disease:: No - Outcomes/Goals: See list Psychosocial Outcomes/Goals:: ID's personal stressors & 2 strategies to manage stress by discharge, Other Additional outcome/goals: - Intervention/Plan: See List Interventions/Plan:: Assess stressors,coping strategies & signs of derpression on admission, Instruct/assist pt to develop coping & personal stress Mgt strategies, Refer to Behavioral Health if appropriate, Refer to Physician if appropriate, Instruct patient to recognize signs & symptoms of depression, Instruct patient to recog, Other additional plan/intervention Psychosocial - 30-Day Assess Psychosocial - 60-Day Assess Psychosocial - 90-Day Assess Psychosocial - Final Assessmen Patient Health Questionnaire Initial Assessment 1. Little interest or pleasure in doing things: Not at all 2. Feeling down, depressed, or hopeless: Several days 3. Trouble falling or staying asleep, or sleeping too much: Several days 4. Feeling tired or having little energy: Nearly every day 5. Poor appetite or overeating: Several days 6. Feeling bad about yourself -- or that you are a failure or have let yourself or your family down: Not at all 7. Trouble concentrating on things, such as reading the newspaper or watching television: Not at all 8. Moving or speaking so slowly that other people could have noticed. Or the opp osite - being so fidgety or restless that you have been moving around a lot more than usual: Not at all 9. Thoughts that you would be better off , or of hurting yourself in some way: Not at all How difficult have these problems made it for you to do your work, take care of things at home, or get along with other people?: Not difficult at all Total Score: 6 ARIANNE-Q SV Test - Statements CAD is a disease of the arteries in the heart: True Examples of risk factors for heart disease: True Angina is chest pain or discomfort: True The benefits of resistance training include: True Eating more meat and dairy products: False Anti-platelet medications such as aspirin are important: True The only effective way to manage stress: False An exercise warm-up slowly increases heart rate: True Prepared, processed foods usually have high sodium: True Depression is common after a heart attack: True The statin medications lower cholesterol: True To control blood pressure, lower the amount of sodium: True If someone gets chest discomfort during walking: False Transfats are partially hydrogenated vegetable oils: True Sleep apnea that is not treated increases the risk: True To control cholesterol, one should become a vegetarian: False Someone knows if he/she is exercising at the right level: True Diabetes cannot be prevented with exercise & health eating: False Stress is a large risk for heart attack: True A diet that can help lower blood pressure is rich in: True - Total Score Total Correct Responses: 18 Self-Efficacy Initial Assessment We would like to know how confident you are in doing certain activities. Please select your confidence level for:: Select your confidence level for the following using the scale 1-10 where 1 is not at all confident and 10 is totally confident. Your score is the average of all 6 responses. Fatigue: How confident are you that you can keep the fatigue caused by your disease from interfering with the things you want to do? Select Number: 9 Physical Discomfort or Pain: How confident are you that you can keep the physical discomfort or pain of your disease from interfering with the things you want to do? Select Number: 9 Emotional Distress: How confident are you that you can keep the emotional distress caused by your disease from interfering with the things you want to do? Select Number: 8 Other Symptoms or Health Problems: How confident are you that you can keep other symptoms or health problems from interfering with the things you want to do? Select Number: 7 Different Tasks and Activities: How confident are you that you can do the different tasks and activities needed to manage your health condition so as to reduce your need to see a doctor? Select Number: 8 Medication: How confident are you that you can do things other than just taking medication to reduce how much your illness affects your everyday life? Select Number: 8 Total Score:: 8 Nutrition Survey - Nutrition Survey Initial Have you lost >10 lbs over the past 2 months without trying?: No Are you following a special diet at home for diabetes, low fat, or low salt?: No Are you interested in meeting with a dietitian for help understanding your diet?: Yes Do you eat less than 3 meals a day?: No Do you eat fatty meats (rothman, sausage, ribs, etc), fried foods, desserts, large amounts of salad dressings, margarine, butter, or cheese most days?: Yes Do you have food allergies? [Enter types in comment field]: No Do you eat in restaurants more than 3 times a week?: Yes Do you season food with salt, seasoning salt, or garlic salt?: Yes Do you used canned, boxed, frozen meals, or soups, seasoning packets?: Yes Total Score:: 5
[2022-09-03 14:22] VITALS: BP 120/66; BMI 31.1
== END | disposition home or self-care (01) ==
LOC: CR 12:48
PROVIDERS: PCP Internal Medicine; Visit Provider Internal Medicine Cardiovascular Disease
DX: Z95.5 Presence of coronary angioplasty implant and graft (principal); I20.9 Angina pectoris, unspecified; G47.33 Obstructive sleep apnea (adult) (pediatric); Z86.79 Personal history of other diseases of the circulatory system; Z87.891 Personal history of nicotine dependence; R06.02 Shortness of breath; R42 Dizziness and giddiness; R53.83 Other fatigue

== ENCOUNTER 2022-09-12 13:00 | Outpatient (RCR) | payer MEDICARE, SELFPAY ==
[2022-09-03 14:22] VITALS: BMI 31.1
== END 2022-09-16 23:59 ==
LOC: CR 13:00
PROVIDERS: PCP Internal Medicine; Referring Provider Internal Medicine Cardiovascular Disease; Visit Provider Internal Medicine Cardiovascular Disease
DX: I21.4 Non-ST elevation (NSTEMI) myocardial infarction (principal); Z95.5 Presence of coronary angioplasty implant and graft
CPT/HCPCS: 93798

== ENCOUNTER → 2022-09-24 | Outpatient (CLI) | payer MEDICARE, SELFPAY ==
[2022-09-03 14:22] VITALS: BMI 31.1
--- NOTE | 2022-09-24 14:12 | CT_ITS ---
STUDY: CT ABDOMEN AND PELVIS WITH CONTRAST REASON FOR EXAM: Male, 77 years old. ASYMPTOMATIC HEMATURIA RADIATION DOSAGE (If Supplied By Facility): CTDIvol = ( 23.44 ) mGy, DLP = ( 1212.21 ) mGycm TECHNIQUE: Transaxial images were obtained from the dome of the diaphragm to the symphysis pubis without oral contrast. IV 100mL Isovue-300 was administered. Sagittal and coronal images were reconstructed. Individualized dose optimization techniques were used for this CT. COMPARISON: None. FINDINGS: The visualized lung bases are unremarkable. Coronary artery calcification. There is decreased attenuation of the liver consistent with steatosis. Normal gallbladder and extrahepatic biliary system. Normal spleen. There is diffuse atrophy of the pancreas. Normal bilateral adrenal glands. Normal right kidney. Normal left kidney. A moderate amount of residual food particles are seen within the stomach. Normal small intestine. There are multiple colonic diverticula consistent with diverticulosis. The appendix is visualized and appears normal. There is scattered atherosclerotic calcification of the abdominal aorta and its major visceral branches, without a demonstrated aneurysm. Normal inferior vena cava. Normal retroperitoneum. Mild degree of diffuse bladder wall thickening. There is heterogeneous enlargement of the prostate. It measures 5.1 cm x 5.9 cm. Calcifications are seen along the posterior aspect of the prostate. The prostate causes indentation of the bladder base. Calcified phleboliths are seen within the pelvis. Normal abdominal wall. There are diffuse degenerative changes of the visualized lumbar spine. Mild retrolisthesis of L5 on S1. CT/Abdomen/Pelvis WITH Contrast IMPRESSION: Heterogeneous enlargement of the prostate with indentation at the bladder base. Calcifications are seen along the posterior aspect of the prostate. Electronically Signed: Jake Guardado MD at 14:53 EST ,
== END | disposition home or self-care (01) ==
LOC: CT 14:10
PROVIDERS: PCP Internal Medicine; Referring Provider Urology; Visit Provider Urology
DX: R31.21 Asymptomatic microscopic hematuria (principal); N42.0 Calculus of prostate; N40.1 Benign prostatic hyperplasia with lower urinary tract symptoms; I25.10 Atherosclerotic heart disease of native coronary artery without angina pectoris
CPT/HCPCS: 74177; 93798; Q9967

== ENCOUNTER 2022-10-13 13:00 | Outpatient (RCR) | payer MEDICARE, SELFPAY ==
[2022-09-03 14:22] VITALS: BMI 31.1
--- NOTE | 2022-10-03 11:11 | CR.ITP_ITS ---
Diagnosis Exercise - 30-day Assessment - Visit Date of Eval: 10/03/22 Session #:: 10 - Physician Prescribed Exercise Modalities: Treadmill, NuStep, SciFit Frequency: 3x/week for 12 weeks [36 sessions] Intensity: 60-80% of age predicted maximum heart rate reserve Current METSs:: 5 Target Heart Rate:: 94-108 Current RPE:: 9-11 Maximum Excercise HR:: 97 Resting Blood Pressure: 98/62 Maximum Exercise Blood Pressure: 128/64 EKG Type: NSR with occas PVC and PAC - Outcomes & Goals Goals:: Verbalizes understanding of THR, RPE & goal METS by session 6, Documents in home exercise log/reports 30 min aerobic 5 day/wk by DC, Demonstrates accurate pulse taking by DC, Other additional outcome/goals: see below - Intervention & Plan Exercise Program Goals: Instruct on personal THR & RPE, Instruct on MET level & personal MET goal, Show patient to take own pulse /validate performance until accurate, Instruct on home exercise, Other additional plan/int - 30-day Reassessments 30 day Reassessments:: Progressing - THR explained - Physical Activity Home Exercise Physical Activity - Home Exercise: Safe Exercise, Warm-up, Self-monitoring, Cool-Down, Home Exercise > 30 min Daily, Sitting Time <3 hours/daily - Outcomes & Goals Outcomes/Goals: Demonstrates correct Warm-up/exercise Cool-Down (S3) if = 2.5 METs, Verbalizes symptoms of exercise intolerance by Session 3 (S3), Demonstrate safe equipment use (S3) & follows exercise prescrition (6), Other: See below - Intervention & Plan Plan/Intervention: Instruct warm-up & cool-down if exercising at > 2 METs, Instruct on symptoms of exercise intolerance & actions to take, Instruct & monitor on saf, Assess intial functional capacity & safety risk, Other See below - 30-day Reassessments 30 day Reassessments:: Progressing - warm up encouraged Nutrition - Initial Assessment Nutrition - 30-Day Assessment - Program Goals Nutrition Program Goals: LDL <100 optimal. 100 - 129 Near optimal. 130 - 159 Borderline High. 160 - 189 High. Total Cholesterol <200 desirable. 200 - 239 Borderline High. >/= 240 High. HDL < 40 Low >/=60 High. Triglycerides <150 desirable. <199 optimal. VlDL 5 - 40. HgbA1C <7%. BMI <25 Patient has diagnosis of Hyperlipidemia (ICD E78)?: Yes - Visit Date of Assessment:: 10/03/22 Session #:: 10 - Cholesterol/Lipids (Other Core Measures) Determine presence & major risk factors that modify LDL goal: Cigarette smoking, Hypertension or hypertensive medication, Low HDL cholesterol <40 mg/dL*, Family history of premature CHD in Male < 55 years: female <65 yearsFa, Age men > 45 years; women >/= 55 years Outcomes/Goals: Pt IDs own risk factors & lifestyle modifications by Session 10, Verbalizes symptoms of angina & response by session 3., Pt independently manages, Other Additional Outcomes/Goals: Intervention/Plan: Advocate for lipid panel cholesterol medication if applicable, Instruct on personal lipid levels & lipid goals/NCEP guidelines, Instruct on cholesterol, Other additional plan/int 30-day Reassessments:: Progressing - risk factors explained - Weight Mgt (Other Care) Height: 5 ft 10 in Weight:: 97.296 kg BMI: 30.7 Diagnosis Overweight/Obesity BMI> 30% ICD-10 E66: Yes Diagnosis High BMI/Morbid Obesity BMI> 35% ICD-10 Z68: No Outcomes/Goals: Pt sets, maintains & shows weight loss goal & trend during rehab, Other additional outcomes/goals Intervention/Plan: Instruct on ideal BMI & set weight loss goal w/patient, Assist pt to ID & incorporate diet changes for weight loss by S9, Refer to Structured Weight Loss program as appropriate, Encourage goal of using 250- 300dcal per session for weight loss, Other additional plan/interventions 30 day Reassessments:: Progressing - will attend nutrition class - Healthy Eating Habits Will attend diet classes:: Yes Outcomes/Goals:: Consume diet rich in vegs,fruits,whole grain/high fiber,fish,lean meat, Limit sat/trans fats,cholesterol & added salts & sugars, Other additional outcome/goals: Intervention/Plan:: Assess current eating habits, Other Additional plan/interventions 30-day Reassessments:: Progressing - will attend nutrition class - Education Gave educational materials for:: Signs & symptoms of hypoglycemia, Signs & symptoms of hyperglycemia, Relate diabetes to coronary artery disease, Healthy eating Nutrition - 60-Day Assessment Nutrition - 90-Day Assessment Nutrition - Final Assessment Core - Initial Assessment Core - 30-Day Assessment - Visit Date of Eval: 10/03/22 Session #:: 10 - Medication Compliance Preventative Medication(s):: Aspirin, Ticagrelor/P2Y12 inhibitor, Statin/lipid, Beta madiha H/O mental health issues: depression, anxiety, or addiction?: No Doesn?t believe in the benefits of treatment?: No Believes medications are unnecessary or harmful?: No Has a concern about medication side effects?: No Expresses concern over the cost of medications?: No Outcomes/Goals: Verbalizes medications,desired effect & common side effects @ DC, Pt self-reports following medication regimen, Keeps card in wallet w/medications listed by DC, Other additional outcome/goals: Interventions/plans: Instruct on medication effects & side effects, Review medication list w/patient every two weeks, Instruct importance of taking meds as ordered & assist problem solving, Other additional 30-day Reassessments:: Progressing - encouraged to take meds properly - Tobacco Use Tobacco Use: Non-smoker Do you use smokeless tobacco?: No - Hypertension Hypertension Diagnosis:: Hypertension ICD-10 I10 Resting Blood Pressure:: 98/62 [place] [employer] Hypertension Guidelines: [place] [employer] Hypertension Guidelines. Normal BP Less than 120/80. Elevated BP 120/80. Hypertension Stage 1: BP 130-139/80-89. Hypertesnion Stage 2: BP 140 or higher/90 or higher. Hypertension Crisis: BP higher than 180/120 Peak Exercise Blood Pressure:: 128/64 Outcomes/Goals: Able to verbalize/achieve optimal blood pressure <130/80, Incorporates diet changes & exercise for blood pressure control by DC, Other additional outcomes/goals Interventions/plan: Instruct on optimal blood pressure, hypertension & medications, Instruct on effects of sodium, alcohol, stress, exercise &hypertension, Other additional plan/interventions 30 day Reassessments:: Progressing - encouraged to take meds properly - Tobacco Cessation Referral Smoking Cessation Referral:: No Individual Education/Counseling:: No Education Schedule Given:: Yes Core - 60-Day Assessment Core - 90 Day Assessment Core - Final Assessment Psychosocial - Initial Assess Psychosocial - 30-Day Assess - VIsit Date of Eval: 10/03/22 Session #:: 10 History of previous Mental disease:: No - Outcomes/Goals: See list Psychosocial Outcomes/Goals:: ID's personal stressors & 2 strategies to manage stress by discharge, Other Additional outcome/goals: - Intervention/Plan: See List Interventions/Plan:: Assess stressors,coping strategies & signs of derpression on admission, Instruct/assist pt to develop coping & personal stress Mgt strategies, Refer to Behavioral Health if appropriate, Refer to Physician if appropriate, Instruct patient to recognize signs & symptoms of depression, Instruct patient to recog, Other additional plan/intervention Psychosocial - 60-Day Assess Psychosocial - 90-Day Assess Psychosocial - Final Assessmen Patient Health Questionnaire 30-Day Re-eval Assessment 1. Little interest or pleasure in doing things: Not at all 2. Feeling down, depressed, or hopeless: Several days 3. Trouble falling or staying asleep, or sleeping too much: Several days 4. Feeling tired or having little energy: Nearly every day 5. Poor appetite or overeating: Several days 6. Feeling bad about yourself -- or that you are a failure or have let yourself or your family down: Not at all 7. Trouble concentrating on things, such as reading the newspaper or watching television: Not at all 8. Moving or speaking so slowly that other people could have noticed. Or the opposite - being so fidgety or restless that you have been moving around a lot more than usual: Not at all 9. Thoughts that you would be better off , or of hurting yourself in some way: Not at all How difficult have these problems made it for you to do your work, take care of things at home, or get along with other people?: Not difficult at all Total Score: 6 Self-Efficacy 30-Day Re-eval Assessment We would like to know how confident you are in doing certain activities. Please select your confidence level for:: Select your confidence level for the following using the scale 1-10 where 1 is not at all confident and 10 is totally confident. Your score is the average of all 6 responses. Fatigue: How confident are you that you can keep the fatigue caused by your disease from interfering with the things you want to do? Select Number: 9 Physical Discomfort or Pain: How confident are you that you can keep the physical discomfort or pain of your disease from interfering with the things you want to do? Select Number: 9 Emotional Distress: How confident are you that you can keep the emotional distress caused by your disease from interfering with the things you want to do? Select Number: 8 Other Symptoms or Health Problems: How confident are you that you can keep other symptoms or health problems from interfering with the things you want to do? Select Number: 7 Different Tasks and Activities: How confident are you that you can do the different tasks and activities needed to manage your health condition so as to reduce your need to see a doctor? Select Number: 8 Medication: How confident are you that you can do things other than just taking medication to reduce how much your illness affects your everyday life? Select Number: 9 Total Score:: 8 Nutrition Survey
[2022-10-03 11:25] VITALS: BP 128/64; BP 98/62; BMI 30.7
== END 2022-10-14 23:59 ==
LOC: CR 13:00
PROVIDERS: PCP Internal Medicine; Referring Provider Internal Medicine Cardiovascular Disease; Visit Provider Internal Medicine Cardiovascular Disease
DX: I21.4 Non-ST elevation (NSTEMI) myocardial infarction (principal); Z95.5 Presence of coronary angioplasty implant and graft
CPT/HCPCS: 93798

== ENCOUNTER → 2022-10-16 | Outpatient (CLI) | payer MEDICARE, SELFPAY ==
[2022-10-03 11:25] VITALS: BMI 30.7
[2022-10-16 13:39] LABS: Troponin-I HS 7 pg/mL (3.0-78.0)
== END | disposition home or self-care (01) ==
LOC: LAB 12:18
PROVIDERS: PCP Internal Medicine; Referring Provider Internal Medicine Cardiovascular Disease; Visit Provider Internal Medicine Cardiovascular Disease
DX: R07.89 Other chest pain (principal); Z75.5 Holiday relief care; I25.10 Atherosclerotic heart disease of native coronary artery without angina pectoris
CPT/HCPCS: 36415; 84484

== ENCOUNTER 2022-11-14 13:00 | Outpatient (RCR) | payer MEDICARE, SELFPAY ==
[2022-10-03 11:25] VITALS: BMI 30.7
[2022-10-15 00:30] VITALS: BP 128/64; BP 98/62
--- NOTE | 2022-10-31 10:55 | PCM.CR.ITP ---
Diagnosis Exercise - 60-day Assessment - Visit Date of Eval: 10/31/22 Session #:: 22 - Physician Prescribed Exercise Modalities: Treadmill, NuStep Frequency: 3x/week for 12 weeks [36 sessions] Intensity: 60-80% of age predicted maximum heart rate reserve Current METSs:: 6.5 Target Heart Rate:: 108-122 Current RPE:: 11-13 Maximum Excercise HR:: 124 Resting Blood Pressure: 130/52 Maximum Exercise Blood Pressure: 138/64 EKG Type: NSR to ST with occas PVC and PAC - Outcomes & Goals Goals:: Verbalizes understanding of THR, RPE & goal METS by session 6, Documents in home exercise log/reports 30 min aerobic 5 day/wk by DC, Demonstrates accurate pulse taking by DC, Other additional outcome/goals: see below - Intervention & Plan Exercise Program Goals: Instruct on personal THR & RPE, Instruct on MET level & personal MET goal, Show patient to take own pulse /validate performance until accurate, Instruct on home exercise, Other additional plan/int - 30-day Reassessments 30 day Reassessments:: Progressing - RPE explained - Physical Activity Home Exercise Physical Activity - Home Exercise: Safe Exercise, Warm-up, Self-monitoring, Cool-Down, Home Exercise > 30 min Daily, Sitting Time <3 hours/daily - Outcomes & Goals Outcomes/Goals: Demonstrates correct Warm-up/exercise Cool-Down (S3) if = 2.5 METs, Verbalizes symptoms of exercise intolerance by Session 3 (S3), Demonstrate safe equipment use (S3) & follows exercise prescrition (6), Other: See below - Intervention & Plan Plan/Intervention: Instruct warm-up & cool-down if exercising at > 2 METs, Instruct on symptoms of exercise intolerance & actions to take, Instruct & monitor on saf, Assess intial functional capacity & safety risk, Other See below - 30-day Reassessments 30 day Reassessments:: Progressing - cool down encouraged Nutrition - Initial Assessment Nutrition - 30-Day Assessment Nutrition - 60-Day Assessment - Program Goals Nutrition Program Goals: LDL <100 optimal. 100 - 129 Near optimal. 130 - 159 Borderline High. 160 - 189 High. Total Cholesterol <200 desirable. 200 - 239 Borderline High. >/= 240 High. HDL < 40 Low >/=60 High. Triglycerides <150 desirable. <199 optimal. VlDL 5 - 40. HgbA1C <7%. BMI <25 Patient has diagnosis of Hyperlipidemia (ICD E78)?: Yes - Visit Date of Assessment:: 10/31/22 Session #:: 22 - Cholesterol/Lipids (Other Core Measures) Determine presence & major risk factors that modify LDL goal: Cigarette smoking, Hypertension or hypertensive medication, Low HDL cholesterol <40 mg/dL*, Family history of premature CHD in Male < 55 years: female <65 yearsFa, Age men > 45 years; women >/= 55 years Outcomes/Goals: Pt IDs own risk factors & lifestyle modifications by Session 10, Verbalizes symptoms of angina & response by session 3., Pt independently manages, Other Additional Outcomes/Goals: Intervention/Plan: Advocate for lipid panel cholesterol medication if applicable, Instruct on personal lipid levels & lipid goals/NCEP guidelines, Instruct on cholesterol, Other additional plan/int 30-day Reassessments:: Progressing - risk factors explained - Weight Mgt (Other Care) Height: 5 ft 10 in Weight:: 95.708 kg BMI: 30.2 Diagnosis Overweight/Obesity BMI> 30% ICD-10 E66: Yes Diagnosis High BMI/Morbid Obesity BMI> 35% ICD-10 Z68: No Outcomes/Goals: Pt sets, maintains & shows weight loss goal & trend during rehab, Other additional outcomes/goals Intervention/Plan: Instruct on ideal BMI & set weight loss goal w/patient, Assist pt to ID & incorporate diet changes for weight loss by S9, Refer to Structured Weight Loss program as appropriate, Encourage goal of using 250-300dcal per session for weight loss, Other additional plan/interventions 30 day Reassessments:: Progressing - attending nutrition class - Healthy Eating Habits Will attend diet classes:: Yes Outcomes/Goals:: Consume diet rich in vegs,fruits,whole grain/high fiber,fish,lean meat, Limit sat/trans fats,cholesterol & added salts & sugars, Other additional outcome/goals: Intervention/Plan:: Assess current eating habits, Other Additional plan/interventions 30-day Reassessments:: Progressing - attending nutrition class - Education Gave educational materials for:: Signs & symptoms of hypoglycemia, Signs & symptoms of hyperglycemia, Relate diabetes to coronary artery disease, Healthy eating Nutrition - 90-Day Assessment Nutrition - Final Assessment Core - Initial Assessment Core - 30-Day Assessment Core - 60-Day Assessment - Visit Date of Eval: 10/31/22 Session #:: 22 - Medication Compliance Preventative Medication(s):: Aspirin, Ticagrelor/P2Y12 inhibitor, Statin/lipid, Beta madiha H/O mental health issues: depression, anxiety, or addiction?: No Doesn?t believe in the benefits of treatment?: No Believes medications are unnecessary or harmful?: No Has a concern about medication side effects?: No Expresses concern over the cost of medications?: No Outcomes/Goals: Verbalizes medications,desired effect & common side effects @ DC, Pt self-reports following medication regimen, Keeps card in wallet w/medications listed by DC, Other additional outcome/goals: Interventions/plans: Instruct on medication effects & side effects, Review medication list w/patient every two weeks, Instruct importance of taking meds as ordered & assist problem solving, Other additional 30-day Reassessments:: Met - Tobacco Use Tobacco Use: Non-smoker - Hypertension Hypertension Diagnosis:: Hypertension ICD-10 I10 Resting Blood Pressure:: 130/52 [place] [employer] Hypertension Guidelines: [place] [employer] Hypertension Guidelines. Normal BP Less than 120/80. Elevated BP 120/80. Hypertension Stage 1: BP 130-139/80-89. Hypertesnion Stage 2: BP 140 or higher/90 or higher. Hypertension Crisis: BP higher than 180/120 Peak Exercise Blood Pressure:: 138/64 Outcomes/Goals: Able to verbalize/achieve optimal blood pressure <130/80, Incorporates diet changes & exercise for blood pressure control by DC, Other additional outcomes/goals Interventions/plan: Instruct on optimal blood pressure, hypertension & medications, Instruct on effects of sodium, alcohol, stress, exercise &hypertension, Other additional plan/interventions 30 day Reassessments:: Progressing - encouraged to take meds - Tobacco Cessation Referral Smoking Cessation Referral:: No Individual Education/Counseling:: No Education Schedule Given:: Yes Core - 90 Day Assessment Core - Final Assessment Psychosocial - Initial Assess Psychosocial - 30-Day Assess Psychosocial - 60-Day Assess - VIsit Date of Eval: 10/31/22 Session #:: 22 History of previous Mental disease:: No Psychosocial - 90-Day Assess Psychosocial - Final Assessmen Patient Health Questionnaire 60-Day Re-eval Assessment 1. Little interest or pleasure in doing things: Not at all 2. Feeling down, depressed, or hopeless: Several days 3. Trouble falling or staying asleep, or sleeping too much: Several days 4. Feeling tired or having little energy: Nearly every day 5. Poor appetite or overeating: Several days 6. Feeling bad about yourself -- or that you are a failure or have let yourself or your family down: Not at all 7. Trouble concentrating on things, such as reading the newspaper or watching television: Not at all 8. Moving or speaking so slowly that other people could have noticed. Or the opposite - being so fidgety or restless that you have been moving around a lot more than usual: Not at all 9. Thoughts that you would be better off , or of hurting yourself in some way: Not at all How difficult have these problems made it for you to do your work, take care of things at home, or get along with other people?: Not difficult at all Total Score: 6 Self-Efficacy 60-Day Re-eval Assessment We would like to know how confident you are in doing certain activities. Please select your confidence level for:: Select your confidence level for the following using the scale 1-10 where 1 is not at all confident and 10 is totally confident. Your score is the average of all 6 responses. Fatigue: How confident are you that you can keep the fatigue caused by your disease from interfering with the things you want to do? Select Number: 9 Physical Discomfort or Pain: How confident are you that you can keep the physical discomfort or pain of your disease from interfering with the things you want to do? Select Number: 9 Emotional Distress: How confident are you that you can keep the emotional distress caused by your disease from interfering with the things you want to do? Select Number: 8 Other Symptoms or Health Problems: How confident are you that you can keep other symptoms or health problems from interfering with the things you want to do? Select Number: 7 Different Tasks and Activities: How confident are you that you can do the different tasks and activities needed to manage your health condition so as to reduce your need to see a doctor? Select Number: 8 Medication: How confident are you that you can do things other than just taking medication to reduce how much your illness affects your everyday life? Select Number: 9 Total Score:: 8 Nutrition Survey
[2022-10-31 11:06] VITALS: BP 130/52; BP 138/64; BMI 30.2
== END 2022-11-14 23:59 ==
LOC: CR 13:00
PROVIDERS: PCP Internal Medicine; Referring Provider Internal Medicine Cardiovascular Disease; Visit Provider Internal Medicine Cardiovascular Disease
DX: I21.4 Non-ST elevation (NSTEMI) myocardial infarction (principal); Z95.5 Presence of coronary angioplasty implant and graft
CPT/HCPCS: 93798

== ENCOUNTER 2022-12-12 13:00 | Outpatient (RCR) | payer MEDICARE, SELFPAY ==
[2022-10-31 11:06] VITALS: BMI 30.2
[2022-11-15 01:53] VITALS: BP 130/52; BP 138/64
--- NOTE | 2022-11-28 09:55 | PCM.CR.ITP ---
Diagnosis Exercise - 90-day Assessment - Visit Date of Eval: 11/28/22 Session #:: 32 - Physician Prescribed Exercise Modalities: Treadmill, NuStep Frequency: 3x/week for 12 weeks [36 sessions] Intensity: 60-80% of age predicted maximum heart rate reserve Current METSs:: 7 Target Heart Rate:: 108-122 Current RPE:: 11-12 Maximum Excercise HR:: 98 Resting Blood Pressure: 128/84 Maximum Exercise Blood Pressure: 148/70 EKG Type: NSR to ST w/occas pvc and pac - Outcomes & Goals Goals:: Verbalizes understanding of THR, RPE & goal METS by session 6, Documents in home exercise log/reports 30 min aerobic 5 day/wk by DC, Demonstrates accurate pulse taking by DC, Other additional outcome/goals: see below - Intervention & Plan Exercise Program Goals: Instruct on personal THR & RPE, Instruct on MET level & personal MET goal, Show patient to take own pulse /validate performance until accurate, Instruct on home exercise, Other additional plan/int - 30-day Reassessments 30 day Reassessments:: Progressing - THR explained - Physical Activity Home Exercise Physical Activity - Home Exercise: Safe Exercise, Warm-up, Self-monitoring, Cool-Down, Home Exercise > 30 min Daily, Sitting Time <3 hours/daily - Outcomes & Goals Outcomes/Goals: Demonstrates correct Warm-up/exercise Cool-Down (S3) if = 2.5 METs, Verbalizes symptoms of exercise intolerance by Session 3 (S3), Demonstrate safe equipment use (S3) & follows exercise prescrition (6), Other: See below - Intervention & Plan Plan/Intervention: Instruct warm-up & cool-down if exercising at > 2 METs, Instruct on symptoms of exercise intolerance & actions to take, Instruct & monitor on saf, Assess intial functional capacity & safety risk, Other See below - 30-day Reassessments 30 day Reassessments:: Met Nutrition - Initial Assessment Nutrition - 30-Day Assessment Nutrition - 60-Day Assessment Nutrition - 90-Day Assessment - Visit Date of Assessment:: 11/28/22 Session #:: 32 - Cholesterol/Lipids (Other Core Measures) Determine presence & major risk factors that modify LDL goal: Cigarette smoking, Hypertension or hypertensive medication, Low HDL cholesterol <40 mg/dL*, Family history of premature CHD in Male < 55 years: female <65 yearsFa, Age men > 45 years; women >/= 55 years Outcomes/Goals: Pt IDs own risk factors & lifestyle modifications by Session 10, Verbalizes symptoms of angina & response by session 3., Pt independently manages, Other Additional Outcomes/Goals: Intervention/Plan: Advocate for lipid panel cholesterol medication if applicable, Instruct on personal lipid levels & lipid goals/NCEP guidelines, Instruct on cholesterol, Other additional plan/int 30-day Reassessments:: Progressing - risk factors explained - Weight Mgt (Other Care) Height: 5 ft 10 in Weight:: 94.801 kg BMI: 29.9 Diagnosis Overweight/Obesity BMI> 30% ICD-10 E66: No Diagnosis High BMI/Morbid Obesity BMI> 35% ICD-10 Z68: No Outcomes/Goals: Pt sets, maintains & shows weight loss goal & trend during rehab, Other additional outcomes/goals Intervention/Plan: Instruct on ideal BMI & set weight loss goal w/patient, Assist pt to ID & incorporate diet changes for weight loss by S9, Refer to Structured Weight Loss program as appropriate, Encourage goal of using 250-300dcal per session for weight loss, Other additional plan/interventions 30 day Reassessments:: Progressing - will attend nutrition class - Healthy Eating Habits Will attend diet classes:: Yes Outcomes/Goals:: Consume diet rich in vegs,fruits,whole grain/high fiber,fish,lean meat, Limit sat/trans fats,cholesterol & added salts & sugars, Other additional outcome/goals: Intervention/Plan:: Assess current eating habits, Other Additional plan/interventions 30-day Reassessments:: Progressing - will attend nutrition class - Education Gave educational materials for:: Signs & symptoms of hypoglycemia, Signs & symptoms of hyperglycemia, Relate diabetes to coronary artery disease, Healthy eating Nutrition - Final Assessment Core - Initial Assessment Core - 30-Day Assessment Core - 60-Day Assessment Core - 90 Day Assessment - Visit Date of Eval: 11/28/22 Session #:: 32 - Medication Compliance Preventative Medication(s):: Aspirin, Clopidogrel/P2Y12 inhibit, Beta madiha H/O mental health issues: depression, anxiety, or addiction?: No Doesn?t believe in the benefits of treatment?: No Believes medications are unnecessary or harmful?: No Has a concern about medication side effects?: No Expresses concern over the cost of medications?: No Outcomes/Goals: Verbalizes medications,desired effect & common side effects @ DC, Pt self-reports following medication regimen, Keeps card in wallet w/medications listed by DC, Other additional outcome/goals: Interventions/plans: Instruct on medication effects & side effects, Review medication list w/patient every two weeks, Instruct importance of taking meds as ordered & assist problem solving, Other additional 30-day Reassessments:: Progressing - taking meds as instructed - Tobacco Use Tobacco Use: Non-smoker - Hypertension Hypertension Diagnosis:: Hypertension ICD-10 I10 Resting Blood Pressure:: 128/84 [place] [employer] Hypertension Guidelines: [place] [employer] Hypertension Guidelines. Normal BP Less than 120/80. Elevated BP 120/80. Hypertension Stage 1: BP 130-139/80-89. Hypertesnion Stage 2: BP 140 or higher/90 or higher. Hypertension Crisis: BP higher than 180/120 Peak Exercise Blood Pressure:: 148/70 Outcomes/Goals: Able to verbalize/achieve optimal blood pressure <130/80, Incorporates diet changes & exercise for blood pressure control by DC, Other additional outcomes/goals Interventions/plan: Instruct on optimal blood pressure, hypertension & medications, Instruct on effects of sodium, alcohol, stress, exercise &hypertension, Other additional plan/interventions 30 day Reassessments:: Progressing - taking meds as instructed - Tobacco Cessation Referral Smoking Cessation Referral:: No Individual Education/Counseling:: No Education Schedule Given:: Yes Core - Final Assessment Psychosocial - Initial Assess Psychosocial - 30-Day Assess Psychosocial - 60-Day Assess Psychosocial - 90-Day Assess - VIsit Date of Eval: 11/28/22 Session #:: 32 History of previous Mental disease:: No Psychosocial - Final Assessmen Patient Health Questionnaire 90-Day Re-eval Assessment 1. Little interest or pleasure in doing things: Not at all 2. Feeling down, depressed, or hopeless: Several days 3. Trouble falling or staying asleep, or sleeping too much: Several days 4. Feeling tired or having little energy: Nearly every day 5. Poor appetite or overeating: Several days 6. Feeling bad about yourself -- or that you are a failure or have let yourself or your family down: Not at all 7. Trouble concentrating on things, such as reading the newspaper or watching television: Not at all 8. Moving or speaking so slowly that other people could have noticed. Or the opposite - being so fidgety or restless that you have been moving around a lot more than usual: Not at all 9. Thoughts that you would be better off , or of hurting yourself in some way: Not at all How difficult have these problems made it for you to do your work, take care of things at home, or get along with other people?: Not difficult at all Total Score: 6 Self-Efficacy 90-Day Re-eval Assessment We would like to know how confident you are in doing certain activities. Please select your confidence level for:: Select your confidence level for the following using the scale 1-10 where 1 is not at all confident and 10 is totally confident. Your score is the average of all 6 responses. Fatigue: How confident are you that you can keep the fatigue caused by your disease from interfering with the things you want to do? Select Number: 9 Physical Discomfort or Pain: How confident are you that you can keep the physical discomfort or pain of your disease from interfering with the things you want to do? Select Number: 9 Emotional Distress: How confident are you that you can keep the emotional distress caused by your disease from interfering with the things you want to do? Select Number: 8 Other Symptoms or Health Problems: How confident are you that you can keep other symptoms or health problems from interfering with the things you want to do? Select Number: 7 Different Tasks and Activities: How confident are you that you can do the different tasks and activities needed to manage your health condition so as to reduce your need to see a doctor? Select Number: 8 Medication: How confident are you that you can do things other than just taking medication to reduce how much your illness affects your everyday life? Select Number: 9 Total Score:: 8 Nutrition Survey
[2022-11-28 10:04] VITALS: BP 128/84; BP 148/70; BMI 29.9
== END 2022-12-14 23:59 ==
LOC: CR 13:00
PROVIDERS: PCP Internal Medicine; Referring Provider Internal Medicine Cardiovascular Disease; Visit Provider Internal Medicine Cardiovascular Disease
DX: I21.4 Non-ST elevation (NSTEMI) myocardial infarction (principal); Z95.5 Presence of coronary angioplasty implant and graft
CPT/HCPCS: 93798

== ENCOUNTER 2022-12-15 10:54 | Outpatient (RCR) | payer MEDICARE, SELFPAY ==
[2022-11-28 10:04] VITALS: BMI 29.9
[2022-12-15 00:36] VITALS: BP 128/84; BP 148/70
== END 2023-01-14 23:59 ==
LOC: CR 10:54
PROVIDERS: PCP Internal Medicine; Referring Provider Internal Medicine Cardiovascular Disease; Visit Provider Internal Medicine Cardiovascular Disease
DX: I21.4 Non-ST elevation (NSTEMI) myocardial infarction (principal); Z95.5 Presence of coronary angioplasty implant and graft
CPT/HCPCS: 93798

== ENCOUNTER → 2023-01-30 | Outpatient (CLI) | payer MEDICARE, SELFPAY ==
[2022-11-28 10:04] VITALS: BMI 29.9
[2023-01-30 14:04] LABS: AST(SGOT) 17 U/L (15-37); Alanine Aminotransfer ALT/SGPT 23 U/L (16-61); Albumin, Serum 3.6 g/dL (3.2-5.0); Alkaline Phosphatase 73 U/L (45-117); Bilirubin, Direct 0.19 mg/dL (0.00-0.30); Cholesterol 121 mg/dL (200); Globulin 3.6 g/dL (2.2-4.2); High Density Lipoprotein 59 mg/dL; Protein, Total 7.2 g/dL (6.4-8.2); Triglycerides 110 mg/dL; Very Low Density Lipoprotein 22 mg/dL (5-40)
== END | disposition home or self-care (01) ==
LOC: LAB 12:12
PROVIDERS: PCP Internal Medicine; Referring Provider Internal Medicine Cardiovascular Disease; Visit Provider Internal Medicine Cardiovascular Disease
DX: I10 Essential (primary) hypertension (principal); E78.5 Hyperlipidemia, unspecified
CPT/HCPCS: 36415; 80061; 80076

== ENCOUNTER 2023-08-20 10:30 | Outpatient (RCR) | payer MEDICARE, SELFPAY ==
[2022-11-28 10:04] VITALS: BMI 29.9
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
--- NOTE | 2023-08-20 11:23 | HP.PTDCSUM ---
Discharge Summary D/C summary: It has been my pleasure to treat LUÍS HERNANDEZ referred by Dary Dow [employer], with the diagnosis of cervicalgia for a total of 12 visit(s). Discharge Date: 08/20/23 Please see the following information for a summary of their discharge status. Subjective Subjective: Stiff this morning and most mornings, works out in a couple hours. HEP going well adn will continue. To doctor no time soon. Pain 3/10 in last week intermittently. Pain L neck and arm: Pain Intensity (Out of 10): 0 Overall Improvement % Improvement: 50 Objective Objective/Function: 50 extension 44 L rot adn 48 r rotation, transient pain. UE strength symmetrical and 4/5 Pt feeling better and seems to realize limitations. Wants to continue on his own at this point. Goals Goal 1:: symmetrical neck rotation ROM without pain and 35 extension. Goal Progress: Progressing Goal 2:: pain in neck 1/10 at worst and 75% improved overall. Goal Progress: 50% Goal 3:: sleep without discomfort getting to rest at night Goal Progress: Goal Met Goal 4:: I appropriate stretch adn strengthening to manage condition Goal Progress: Goal Met Goal 5:: oswestry score neck at 5 or less. Goal Progress: Progressing Plan Plan: d/c to HEp/gym D/C Information Discharge Comments: Will continue via HEP and contact doctor if pain worsens d/c sentence: If there are questions or concerns regarding this patient's physical therapy, please feel free to call me at [phone]. Thank you for the referral of this patient. Sincerely, Ortiz Jean, DPT, OCS, CSCS Balance/Gait/Functional tests Balance/Special Test Scores Oswestry Neck Score: 11 Improvement % Improvement: 50
== END 2023-08-20 16:18 | disposition home or self-care (01) ==
LOC: PT 10:30
PROVIDERS: PCP Internal Medicine; Visit Provider Nurse Practitioner
DX: M54.2 Cervicalgia (principal)
CPT/HCPCS: 97110; 97140; 97161; 97164

== ENCOUNTER → 2023-10-06 | Outpatient (CLI) | payer MEDICARE, SELFPAY ==
[2022-11-28 10:04] VITALS: BMI 29.9
--- OUTSIDE RECORDS SUMMARY | 2023-10-06 11:19 | XMS RPT_ITS | CCD ---
Author Name Unknown Address [address] [place] [address] Organization [facility] Care Team Providers Care Clinical Laboratory Aide Name Role Phone Xavier Hampton Primary Care Provider Haroldo Taylor MD Primary Care Provider HAROLDO TAYLOR Primary Care Unavailable HAROLDO TAYLOR Attending Unavailable HAROLDO TAYLOR Referring Unavailable HAROLDO TAYLOR Primary Care Unavailable HAROLDO TAYLOR Referring Unavailable HAROLDO TAYLOR Attending Unavailable HAROLDO TAYLOR Primary Care Unavailable HAROLDO TAYLOR Primary Care Unavailable HAROLDO TAYLOR Attending Unavailable HAROLDO TAYLOR Primary Care Unavailable DARY PETTY Attending Unavailable HAROLDO TAYLOR Primary Care Unavailable DARY PETTY Attending Unavailable HAROLDO TAYLOR Primary Care Unavailable DARY PETTY Referring Unavailable HAROLDO TAYLOR Primary Care Unavailable DARY PETTY Attending Unavailable Allergies Allergy Classification Reported Allergen(s) Allergy Type Date of Onset Reaction(s) Facility Acetaminophen / HYDROcodone (1 source) Acetaminophen / HYDROcodone Drug Allergy 9 Rash, Itching [facility] Work Phone: Acetaminophen / oxyCODONE (1 source) Acetaminophen / oxyCODONE Drug Allergy 2 Intolerance [facility] Opioid Agonists (1 source) Codeine Drug Allergy 5 [facility] (20 sources) Acetaminophen / HYDROcodone; Translations: [HYDROCODONE-ACETA MINOPHEN] Drug Allergy 9 Rash, Itching [facility] (20 sources) Acetaminophen / oxyCODONE; Translations: [OXYCODONE-ACETAMI NOPHEN] Drug Allergy 2 Intolerance [facility] (20 sources) Codeine; Translations: [CODEINE] Drug Allergy 5 Rash [facility] Medications Current Medications Medication Drug Class(es) Dates Sig (Normalized) Sig (Original) gabapentin 300 mg oral capsule (19 sources) Anti-epileptic Agent Start: 08-29-2022 End: 08-29-2023 take 1 capsule by mouth once daily at bedtime gabapentin (NEURONTIN) 300 mg capsule Indications: Chronic neck pain Take 1 capsule by mouth daily at bedtime. 0 08/29/2022 08/29/2023 Active Completed/Discontinued Medications Medication Drug Class(es) Dates Sig (Normalized) Sig (Original) Calcium Carbonate / vitamin D3 (20 sources) CALCIUM CARBONATE/VITAMIN D3 (VITAMIN D-3 ORAL) Take by mouth. 0 Active Problems Active Problems Problem Classification Problem Date Documented Da te Episodic/Chronic Acute myocardial infarction (4 sources) Myocardial infarction; Translations: [Non-ST elevation (NSTEMI) myocardial infarction] Onset: 08-29-2022 Chronic Administrative/social admission (1 source) Patient encounter status; Translations: [Persons encountering health services in other specified circumstances] Episodic Anxiety disorders (2 sources) Anxiety; Translations: [Anxiety] Chronic Disorders of lipid metabolism (9 sources) Hyperlipidemia; Translations: [Hyperlipidemia, unspecified] Onset: 08-29-2022 Chronic Essential hypertension (20 sources) Benign essential hypertension; Translations: [Essential (primary) hypertension] Onset: 07-22-2005 12-17-2017 Chronic Hyperplasia of prostate (4 sources) Benign prostatic hypertrophy with outflow obstruction; Translations: [Benign prostatic hyperplasia] Onset: 02-25-2023 02-25-2023 Chronic Inflammatory conditions of male genital organs (12 sources) Chronic prostatitis; Translations: [Chronic prostatitis] Onset: 04-30-2009 04-30-2009 Chronic Malaise and fatigue (5 sources) Fatigue; Translations: [Other fatigue] Onset: 11-06-2022 Episodic Nutritional deficiencies (2 sources) Vitamin D deficiency; Translations: [Vitamin D deficiency, unspecified] 07-17-2023 Chronic Nutritional deficiencies (2 sources) Cobalamin deficiency; Translations: [Deficiency of other specified B group vitamins] Onset: 07-13-2023 07-17-2023 Episodic Other connective tissue disease (9 sources) H/O: artificial joint; Translations: [Knee joint replacement by other means] Onset: 03-12-2011 03-12-2011 Chronic Other diseases of bladder and urethra (12 sources) Bladder neck obstruction; 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 obstruction] Onset: 06-09-2007 06-09-2007 Chronic Other hereditary and degenerative nervous system conditions (12 sources) Restless legs; Translations: [Restless legs syndrome] Onset: 07-29-2022 Chronic Other male genital disorders (19 sources) Erectile dysfunction co-occurrent and due to arterial insufficiency; Translations: [Erectile dysfunction due to arterial insufficiency] Onset: 03-17-2018 03-17-2018 Chronic Other screening for suspected conditions (not mental disorders or infectious disease) (1 source) Elevated fasting lipid profile; Translations: [Elevated fasting lipid profile] Chronic Other screening for suspected conditions (not mental disorders or infectious disease) (15 sources) Raised prostate specific antigen; Translations: [Elevated prostate specific antigen [PSA]] Onset: 09-07-2006 09-07-2006 Episodic Other upper respiratory infections (1 source) Acute maxillary sinusitis, unspecified; Translations: [Acute non-recurrent maxillary sinusitis] Onset: 08-19-2023 Episodic Residual codes; unclassified (12 sources) Obstructive sleep apnea syndrome; Translations: [Obstructive sleep apnea (adult) (pediatric)] Onset: 07-29-2022 Chronic Residual codes; unclassified (1 source) Requires vaccination; Translations: [Need for vaccination] Spondylosis; intervertebral disc disorders; other back problems (1 source) Cervical radiculopathy; Translations: [Cervical radiculopathy] Chronic Spondylosis; intervertebral disc disorders; other back problems (15 sources) Neck pain; Translations: [Chronic neck pain] Onset: 07-29-2022 Episodic Unclassified (2 sources) Patient encounter status; Translations: [Preoperative evaluation to rule out surgical contraindication] Past or Other Problems Problem Classification Problem Date Documented Da te Episodic/Chronic Coronary atherosclerosis and other heart disease (10 sources) Stented coronary artery; Translations: [Presence of coronary angioplasty implant and graft] Onset: 08-29-2022 Episodic Genitourinary symptoms and ill-defined conditions (12 sources) Retention of urine; Translations: [Retention of urine, unspecified] Onset: 08-19-2019 08-19-2019 Episodic Other connective tissue disease (13 sources) Abnormal movement; Translations: [Unspecified abnormal involuntary movements] Onset: 07-22-2005 07-18-2019 Episodic Results Test Name Value Interpretation Reference Range Facil ity Vital Signs Date Time Vital Sign Value Performing Clinician Faci lity 07-16-2023 14:51-0500 Diastolic blood pressure 73 mm[Hg] Dary Older HEADEND TECHNICIAN.VICE PRESIDENT OF SALES Work Phone: [facility] 07-16-2023 14:51-0500 Heart rate 68 /min Dary Older HEADEND TECHNICIAN.VICE PRESIDENT OF SALES Work Phone: [facility] 07-16-2023 14:51-0500 Systolic blood pressure 123 mm[Hg] Dary Older HEADEND TECHNICIAN.VICE PRESIDENT OF SALES Work Phone: [facility] 07-16-2023 14:35-0500 Body weight 101.15 kg Dary Older HEADEND TECHNICIAN.VICE PRESIDENT OF SALES Work Phone: [facility] 07-16-2023 14:35-0500 Respiratory rate 18 /min Dary Older HEADEND TECHNICIAN.VICE PRESIDENT OF SALES Work Phone: [facility] 07-16-2023 14:35-0500 SaO2% (BldA) [Mass fraction] 98 % Dary Older HEADEND TECHNICIAN.VICE PRESIDENT OF SALES Work Phone: [facility] 02-25-2023 14:19-0400 Body height 180.3 cm Haroldo Taylor MD Work Phone: [facility] 02-25-2023 14:19-0400 Body weight 97.07 kg Haroldo Taylor MD Work Phone: [facility] 02-25-2023 14:19-0400 Diastolic blood pressure 78 mm[Hg] Haroldo Taylor MD Work Phone: [facility] 02-25-2023 14:19-0400 Heart rate 64 /min Haroldo Taylor MD Work Phone: [facility] 02-25-2023 14:19-0400 Respiratory rate 24 /min Haroldo Taylor MD Work Phone: [facility] 02-25-2023 14:19-0400 Systolic blood pressure 124 mm[Hg] Haroldo Taylor MD Work Phone: [facility] 10-29-2022 10:10-0400 Body weight 95.25 kg Haroldo Taylor MD Work Phone: [facility] 10-29-2022 10:10-0400 Diastolic blood pressure 74 mm[Hg] Haroldo Taylor MD Work Phone: [facility] 10-29-2022 10:10-0400 Heart rate 68 /min Haroldo Taylor MD Work Phone: [facility] 10-29-2022 10:10-0400 Respiratory rate 16 /min Haroldo Taylor MD Work Phone: [facility] 10-29-2022 10:10-0400 Systolic blood pressure 120 mm[Hg] Haroldo Taylor MD Work Phone: [facility] 08-29-2022 09:57-0500 Body temperature 96.69 [degF] Haroldo Taylor MD Work Phone: [facility] 08-29-2022 09:57-0500 Body weight 97.98 kg Haroldo Taylor MD Work Phone: [facility] 08-29-2022 09:57-0500 Diastolic blood pressure 68 mm[Hg] Haroldo Taylor MD Work Phone: [facility] 08-29-2022 09:57-0500 Heart rate 62 /min Haroldo Taylor MD Work Phone: [facility] 08-29-2022 09:57-0500 Respiratory rate 18 /min Haroldo Taylor MD Work Phone: [facility] 08-29-2022 09:57-0500 SaO2% (BldA) [Mass fraction] 94 % Haroldo Taylor MD Work Phone: [facility] 08-29-2022 09:57-0500 Systolic blood pressure 114 mm[Hg] Haroldo Taylor MD Work Phone: [facility] 07-29-2022 13:51-0500 Body height 177.8 cm Dary Older HEADEND TECHNICIAN.VICE PRESIDENT OF SALES Work Phone: [facility] 07-29-2022 13:51-0500 Body weight 101.61 kg Dary Older HEADEND TECHNICIAN.VICE PRESIDENT OF SALES Work Phone: [facility] 07-29-2022 13:51-0500 Diastolic blood pressure 85 mm[Hg] Dary Older HEADEND TECHNICIAN.VICE PRESIDENT OF SALES Work Phone: [facility] 07-29-2022 13:51-0500 Heart rate 80 /min Dary Older HEADEND TECHNICIAN.VICE PRESIDENT OF SALES Work Phone: [facility] 07-29-2022 13:51-0500 Respiratory rate 14 /min Dary Older HEADEND TECHNICIAN.VICE PRESIDENT OF SALES Work Phone: [facility] 07-29-2022 13:51-0500 Systolic blood pressure 128 mm[Hg] Dary Older HEADEND TECHNICIAN.VICE PRESIDENT OF SALES Work Phone: [facility] 07-19-2020 13:05-0500 Body Temperature 98.4 [degF] [facility] 07-19-2020 13:05-0500 Body weight 91.17 kg [facility] 07-19-2020 13:05-0500 BP Diastolic 82 mm[Hg] [facility] ic 07-19-2020 13:05-0500 BP Systolic 138 mm[Hg] [facility] ic 07-19-2020 13:05-0500 Height 180.3 cm [facility] ic 07-19-2020 13:05-0500 Pulse (Heart Rate) 97 /min [facility] 07-19-2020 13:05-0500 Pulse Oximetry 99 % [facility] ic 07-19-2020 13:05-0500 Respiratory Rate 15 /min [facility] 05-31-2020 12:40-0400 Body Temperature 98.1 [degF] [facility] 05-31-2020 12:40-0400 Body weight 96.62 kg Xavier [facility] 05-31-2020 12:40-0400 BP Diastolic 79 mm[Hg] [facility] 05-31-2020 12:40-0400 BP Systolic 128 mm[Hg] [facility] 05-31-2020 12:40-0400 Height 180.3 cm [facility] 05-31-2020 12:40-0400 Pulse (Heart Rate) 67 /min [facility] 05-31-2020 12:40-0400 Pulse Oximetry 97 % [facility] Encounters Encounter Date Encounter Type Care Provider Facility Start: 08-28-2023 End: 08-28-2023 ambulatory HAROLDO TAYLOR Facility:[facility] Start: 08-19-2023 End: 08-20-2023 ambulatory HAROLDO TAYLOR Facility:[facility] Start: 07-16-2023 End: 07-16-2023 ambulatory HAROLDO TAYLOR Facility:[facility] Start: 07-16-2023 End: 07-16-2023 Patient encounter procedure Dary Older HEADEND TECHNICIAN.VICE PRESIDENT OF SALES Work Phone: [facility] [place] Procedures Date Procedure Procedure Detail Performing Clinician Start: 06-11-2020 ACTIVATED PTT Xavier Hampton Work Phone: Start: 06-11-2020 COMPLETE BLOOD COUNT W/AUTO DIFF Xavier Hampton Work Phone: Start: 06-11-2020 Comprehensive metabolic 2000 panel Xavier Hampton Work Phone: Start: 06-11-2020 EXTERNAL LAB RESULT Xavier Hampton Work Phone: Start: 06-11-2020 HEPATITIS PANEL, GENERAL Xavier pastor Work Phone: Start: 06-11-2020 PROTHROMBIN TIME/PT Xavier Hampton Work Phone: Start: 06-11-2020 URINALYSIS, MICROSCOPIC ([facility] ONLY) Xavier Hampton Work Phone: Start: 05-12-2019 Colonoscopy Xavier Hampton Start: 09-10-2017 Adult depression screening assessment Cristofer Weber Start: 03-12-2011 H/O: artificial joint Knee joint replacement by other means Xavier Hampton DO Work Phone: H/O: surgery History of prost ate surgery Haroldo Taylor MD Work Phone: Plan of Treatment Date Care Activity Detail Author Start: 05-12-2029 Colonoscopy COLONOSCOPY [facility] Start: 05-12-2029 COLORECTAL CANCER SCREENING COLORECTAL CANCER SCREENING [facility] Start: 05-12-2029 Screening for malign ant neoplasm of colon [facility] Start: 07-13-2026 Diabetes Screening Diabetes Screenin g [facility] Start: 11-06-2025 DIABETES SCREEN DIABETES SCREEN [facility] Start: 01-31-2025 LIPID SCREEN LIPID SCREEN [facility] Start: 07-17-2024 RSV Vaccine (1 - 1-d ose 60+ series) RSV Vaccine (1 - 1-dose 60+ series) [facility] Immunizations Immunization Date Immunization Notes Care Provider Haris jones 06-18-2022 influenza, high-dose , quadrivalent vaccine (FLUZONE HIGH DOSE QUADRIVALENT) Dary Older HEADEND TECHNICIAN.VICE PRESIDENT OF SALES Work Phone: [facility] 05-27-2021 influenza, injectabl e, quadrivalent, contains preservative Dary Older HEADEND TECHNICIAN.VICE PRESIDENT OF SALES Work Phone: [facility] 05-26-2020 influenza, high-dose , quadrivalent vaccine (FLUZONE HIGH DOSE QUADRIVALENT) [facility] 05-26-2020 pneumococcal polysaccharide vaccine, 23 valent [facility] 05-26-2020 zoster vaccine recombinant [facility] 06-09-2019 influenza nasal, unspecified formulation [facility] 06-09-2019 influenza, high dose seasonal, preservative-free [facility] 06-09-2019 pneumococcal conjuga te vaccine, 13 valent [facility] 05-06-2018 influenza, high dose seasonal, preservative-free [facility] 06-09-2017 influenza, high dose seasonal, [facility] Work Phone: 06-28-2016 influenza, high dose seasonal, preservative-free [facility] Work Phone: 07-14-2014 influenza, seasonal, injectable, preservative free [facility] Work Phone: 06-16-2011 pneumococcal polysaccharide vaccine, 23 valent [facility] DO Work Phone: [facility] 07-21-2003 TD(adult) unspecifie d formulation Dary Older HEADEND TECHNICIAN.VICE PRESIDENT OF SALES Work Phone: [facility] Payers Date Payer Category Payer Medicare [id number] 2019 Medicare [employer] MEDICARE HU[employer] MEDICARE PPO [id number] 2019-Present [phone] [place] [address] PPO [id number] 2019 Medicare [id number] Social History Date Type Detail Facility Start: 05-31-2020 End: 07-29-2022 Tobacco smoking status NHIS Former smoker [facility] History of tobacco use Cigarette Smoker C [facility] Start: 05-31-2020 End: 02-02-2023 Cigarettes smoked current (pack per day) - Reported [facility] Work Phone: Start: 05-31-2020 End: 07-29-2022 Tobacco use and exposure [facility] Start: 05-31-2020 End: 07-16-2023 Alcohol intake Current drinker of alcohol (finding) [facility] Start: 09-10-2017 Alcohol Comment wine occasional [facility] Start: 1945 Sex Assigned At Not on file [facility] Exposure to SARS-CoV -2 (event) Not sure [facility] History of tobacco use Current smoker [facility] Start: 07-29-2022 Tobacco Comment Quit over 30 years ago [facility] Start: 07-29-2022 Alcohol Comment occasional mixed drink-twice a week [facility] Start: 02-02-2023 End: 02-25-2023 Alcohol Use Disorder Identification Test - Consumption [AUDIT-C] [facility] Work Phone: How often to you hav e a drink containing alcohol? 2-3 time sa week [facility] Work Phone: How many standard dr inks containing alcohol do you have on a typical day? 1 or 2 [facility] Work Phone: How often do you hav e 6 or more drinks on 1 occasion? Never [facility] Work Phone: Adult Depression Scr eening Assessment 0 [facility] Work Phone: Medical Equipment Procedure Code Equipment Code Equipment Origin al Text Equipment Identifier Dates Start: 09-03-2011 Clinical Notes 06-16-2012 to 08-28-2023 Dary Dow APRN.VICE PRESIDENT OF SALES - 07/16/2023 2:38 PM Haroldo Zamora MD - 02/25/2023 2:57 PM Haroldo Valentino MD - 02/25/2023 2:42 PM EDTPatient Instructions Note Date & Type Note Facility 08-28-2023 Note HNO ID: [id number] Author: HAROLDO TAYLOR MD Service: ? Author Type: Physician Type: Progress Notes Filed: 08/28/2023 09:55 Note Text: This note was created using Play for [employer]. Subjective Luís Hernandez is a 78 year old male. He just recovered from a sinus infection. His hypertension, coronary artery disease, lipids, and BPH were controlled. He was using his CPAP regularly. He will [place] leaving for [place] where he stays for several weeks. I updated his problem list to include hyperparathyroidism, vitamin D, B12 deficiency based on records in [place]. He also had chronic PSA elevation monitored by Dr. Dunn. Review of Systems Constitutional: Negative for fatigue and fever. HENT: Positive for sinus pressure. Negative for congestion. Respiratory: Negative for cough, shortness of breath and wheezing. Cardiovascular: Negative for chest pain, palpitations and leg swelling. ACTIVE PROBLEM LIST Psa Elevation Oliva On Cpap Chronic Neck Pain Restless Leg Syndrome Primary Hypertension Hyperlipidemia Stented coronary artery (proximal RCA) Benign Prostatic Hyperplasia Hyperparathyroidism (Hcc) Social History Tobacco Use Smoking status: Former Packs/day: 1 Types: Cigarettes Smokeless tobacco: Never Tobacco comments: Quit over 30 years ago Vaping Use Vaping Use: Never used Substance Use Topics Alcohol use: Yes Alcohol/week: 3.0 standard drinks of alcohol Types: 3 Standard drinks or equivalent per week Drug use: Never Current Outpatient Medications Medication Sig cyanocobalamin 1,000 mcg/mL Inject 1 mL intramuscularly once every month. Syringe with Needle, Disp, (SYRINGE 3CC/25GX1 ) 3 mL 25 gauge x 1 For use with B12 injections metoprolol tartrate, short acting, (LOPRESSOR) 25 mg tablet Take 0.5 tablets by mouth twice daily. CARDIOLOGY. doxazosin (CARDURA) 2 mg tablet Take 1 tablet by mouth daily at bedtime. UROLOGY. dutasteride (AVODART) 0.5 mg capsule Take 1 capsule by mouth once daily. UROLOGY. carbidopa-levodopa (SINEMET) 25-100 mg per tablet Take one(1) tablet daily at bedtime. multivit-mins 25-folic acid-D3 3-2,000 mg-unit tab Take by mouth. gabapentin (NEURONTIN) 300 mg capsule Take 1 capsule by mouth daily at bedtime. ticagrelor (BRILINTA) 60 mg tablet Take 1 tablet by mouth twice daily. pravastatin (PRAVACHOL) 40 mg tablet Take 1 tablet by mouth daily at bedtime. magnesium oxide (MAG-OX) 400 mg (241.3 mg magnesium) tablet Take 400 mg by mouth once daily. COMPOUNDED PRESCRIPTION Prostaglandin 30mcg/ml injectable, bimix papaverine/phentolamine 30mg/0.5mg/ml injectable for penile intracavernosal inj for ED Melatonin 5 mg cap Take by mouth. CALCIUM CARBONATE/VITAMIN D3 (VITAMIN D-3 ORAL) Take by mouth. Insulin Syringe-Needle U-100 1 mL 31 gauge x 5/16 For penile intracavernosal injections for ED No current facility-administered medications for this visit. Objective BP 116/70 (BP Site: Left Arm, BP Position: Sitting, BP Cuff Size: Large Adult) Pulse (!) 50 Temp 36.3 ?C (97.3 ?F) Resp 12 Ht 180.3 cm (5' 11 ) Wt 99.3 kg (219 lb) SpO2 98% BMI 30.54 kg/m? Physical Exam Constitutional: General: He is not in acute distress. Appearance: He is not ill-appearing. HENT: Nose: Nose normal. Mouth/Throat: Mouth: Mucous membranes are moist. Pharynx: Oropharynx is clear. Cardiovascular: Rate and Rhythm: Regular rhythm. Bradycardia present. Heart sounds: No murmur heard. No gallop. Pulmonary: Effort: No respiratory distress. Breath sounds: No wheezing or rales. Musculoskeletal: Right lower leg: No edema. Left lower leg: No edema. Neurological: Mental Status: He is alert. Gait: Gait normal. Assessment and Plan 1. Hyperlipidemia, unspecified hyperlipidemia type - ICD9: 272.4, ICD10: E78.5 (primary diagnosis) - Controlled - Continue current medications - COMP METABOLIC PANEL - LIPID PANEL BASIC 2. Hyperparathyroidism (HCC) - ICD9: 252.00, ICD10: E21.3 Monitored. - VITAMIN D 25 HYDROXY 3. OLIVA on CPAP - ICD9: 327.23, ICD10: G47.33 Using and benefiting from CPAP use. 4. Primary hypertension - ICD9: 401.9, ICD10: I10 - Controlled - CBC 5. Vitamin D deficiency - ICD9: 268.9, ICD10: E55.9 Monitored. 6. Vitamin B12 deficiency - ICD9: 266.2, ICD10: E53.8 Supplemented. - VITAMIN B12 BLOOD Haroldo Taylor MD [facility] 08-19-2023 Note HNO ID: [id number] Author: Dary Petty, HEADEND TECHNICIAN.VICE PRESIDENT OF SALES Service: ? Author Type: Nurse Practitioner Type: Progress Notes Filed: 08/19/2023 3:52 PM Note Text: 3CC: Patient presents with: Acute Visit: Sinus congestion x2 weeks Benadryl and coricidin HPI: Luís Hernandez is a 78 year old male who presents to the office with above complaint Symptoms began two weeks ago and are about the same Symptoms include: Temperature elevation: No Chills: No Cough: No Shortness of breath: No Fatigue: Yes Muscle aches: No Headache: Yes New loss of smell or taste: No Sore throat: No Nasal congestion: Yes Rhinorrhea: No Nausea and/or vomiting: No Diarrhea: No Other Associated symptoms: facial pain/pressure. PMH: non-contributory OTC meds/remedies that patient has tried: Coricidin HBP and Benadryl. 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 Chronic prostatitis 04/30/2009 Elevated prostate specific antigen (PSA) Erectile dysfunction due to arterial insufficiency 03/17/2018 Essential hypertension, benign Hypertrophy of prostate with urinary obstruction and other lower urinary tract symptoms (LUTS) 06/09/2007 Knee joint replacement by other means 03/12/2011 Knee pain 01/09/2011 NSTEMI (non-ST elevated myocardial infarction) (HCC) 08/29/2022 OLIVA on CPAP 07/29/2022 [facility] Restless legs syndrome (RLS) Stented coronary artery (proximal RCA) 08/29/2022 Umbilical hernia without mention of obstruction or gangrene 06/16/2012 Urine retention 08/19/2019 PAST SURGICAL HISTORY Procedure Laterality Date ARTHROSCOPY KNEE DIAGNOSTIC W/WO SYNOVIAL BX SPX 2003 Arthroscopy, knee ARTHROSCOPY KNEE DIAGNOSTIC W/WO SYNOVIAL BX SPX 09/2006 Arthroscopy, knee ARTHRP KNE CONDYLEANDPLATU MEDIALANDLAT COMPARTMENTS 2010 Knee replacement, total lt CORONARY STENT EA VESSEL 08/25/2022 PTCA/GIUSEPPE Prox. RCA Resolute [place] 4 x 18 mm LAMINECTOMY,CERVICAL 07/04/2020 NASAL/SPHENOID SINUS ENDOSCOPY,DX 10/07/2005 removal of cyst in sinus PARATHYROIDECTOMY/EXPLORATION PARATHYROIDS 2017 Dr Cl goldsmith w/ dr Brooke PAST SURGICAL HISTORY OF 2010 BCC excision of chest PAST SURGICAL HISTORY OF Right trigger finger RPR 1ST INGUN HRNA AGE 6 YRS/> REDUCIBLE 1988 Hernia repair, inguinal double TOTAL KNEE REPLACEMENT Right 2013 TRANSURETHRAL ELEC-SURG PROSTATECTOM 2020 VASECTOMY UNI/BI SPX W/POSTOP SEMEN EXAMS 1990 ALLERGIES Percocet [Oxycodone-Acetaminophen], Codeine, and Vicodin [Hydrocodone-Acetaminophen] MEDICATIONS cyanocobalamin 1,000 mcg/mL Inject 1 mL intramuscularly once every month. Syringe with Needle, Disp, (SYRINGE 3CC/25GX1 ) 3 mL 25 gauge x 1 For use with B12 injections metoprolol tartrate, short acting, (LOPRESSOR) 25 mg tablet Take 0.5 tablets by mouth twice daily. CARDIOLOGY. doxazosin (CARDURA) 2 mg tablet Take 1 tablet by mouth daily at bedtime. UROLOGY. dutasteride (AVODART) 0.5 mg capsule Take 1 capsule by mouth once daily. UROLOGY. carbidopa-levodopa (SINEMET) 25-100 mg per tablet Take one(1) tablet daily at bedtime. multivit-mins 25-folic acid-D3 3-2,000 mg-unit tab Take by mouth. gabapentin (NEURONTIN) 300 mg capsule Take 1 capsule by mouth daily at bedtime. ticagrelor (BRILINTA) 60 mg tablet Take 1 tablet by mouth twice daily. pravastatin (PRAVACHOL) 40 mg tablet Take 1 tablet by mouth daily at bedtime. magnesium oxide (MAG-OX) 400 mg (241.3 mg magnesium) tablet Take 400 mg by mouth once daily. COMPOUNDED PRESCRIPTION Prostaglandin 30mcg/ml injectable, bimix papaverine/phentolamine 30mg/0.5mg/ml injectable for penile intracavernosal inj for ED Melatonin 5 mg cap Take by mouth. CALCIUM CARBONATE/VITAMIN D3 (VITAMIN D-3 ORAL) Take by mouth. Insulin Syringe-Needle U-100 1 mL 31 gauge x 5/16 For penile intracavernosal injections for ED FAMILY HISTORY Problem Relation Age of Onset Hypertension Mother Stroke Mother Cancer Father lung - smoker Social History Tobacco Use Smoking status: Former Packs/day: 1 Types: Cigarettes Smokeless tobacco: Never Tobacco comments: Quit over 30 years ago Vaping Use Vaping Use: Never used Substance Use Topics Alcohol use: Yes Alcohol/week: 3.0 standard drinks of alcohol Types: 3 Standard drinks or equivalent per week Drug use: Never BP 124/76 (BP Site: Left Arm, BP Position: Sitting, BP Cuff Size: Large Adult) Pulse 72 Temp 36.9 ?C (98.5 ?F) (Temporal) Resp 16 Wt 98.4 kg (217 lb) SpO2 95% BMI 30.27 kg/m? Physical Exam Vitals reviewed. Constitutional: General: He is not in acute distress. Appearance: He is ill-appearing. He is not toxic-appearing. HENT: Right Ear: Tympanic membrane normal. Left Ear: Tympanic membrane normal. Nose: Mucosal edema (erythematous) present. Right Sinus: Maxillary sinus tenderness present. Left Sinus: Maxillary sinus tenderness p (more content not included)... [facility] 07-16-2023 Note HNO ID: [id number] Author: Dary Dow APRN.VICE PRESIDENT OF SALES Service: ? Author Type: Nurse Practitioner Type: Progress Notes Filed: 07/17/2023 8:03 AM Note Text: CC: Patient presents with: Follow Up: Labs HPI Luís Hernandez is a 78 year old male who presents today for above. He has some questions about his recent blood work and would like to review. Denies any other concerns today. He was seen last week for reoccurrence of neck pain and referred to PT. Patient had first PT session this week and will have at least 12 total. 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 Chronic prostatitis 04/30/2009 Elevated prostate specific antigen (PSA) Erectile dysfunction due to arterial insufficiency 03/17/2018 Essential hypertension, benign Hypertrophy of prostate with urinary obstruction and other lower urinary tract symptoms (LUTS) 06/09/2007 Knee joint replacement by other means 03/12/2011 Knee pain 01/09/2011 NSTEMI (non-ST elevated myocardial infarction) (HCC) 08/29/2022 OLIVA on CPAP 07/29/2022 [facility] Restless legs syndrome (RLS) Stented coronary artery (proximal RCA) 08/29/2022 Umbilical hernia without mention of obstruction or gangrene 06/16/2012 Urine retention 08/19/2019 PAST SURGICAL HISTORY Procedure Laterality Date ARTHROSCOPY KNEE DIAGNOSTIC W/WO SYNOVIAL BX SPX 2003 Arthroscopy, knee ARTHROSCOPY KNEE DIAGNOSTIC W/WO SYNOVIAL BX SPX 09/2006 Arthroscopy, knee ARTHRP KNE CONDYLEANDPLATU MEDIALANDLAT COMPARTMENTS 2010 Knee replacement, total lt CORONARY STENT EA VESSEL 08/25/2022 PTCA/GIUSEPPE Prox. RCA Resolute [place] 4 x 18 mm LAMINECTOMY,CERVICAL 07/04/2020 NASAL/SPHENOID SINUS ENDOSCOPY,DX 10/07/2005 removal of cyst in sinus PARATHYROIDECTOMY/EXPLORATION PARATHYROIDS 2017 Dr Cl goldsmith w/ dr Brooke PAST SURGICAL HISTORY OF 2010 BCC excision of chest PAST SURGICAL HISTORY OF Right trigger finger RPR 1ST INGUN HRNA AGE 6 YRS/> REDUCIBLE 1987 Hernia repair, inguinal double TOTAL KNEE REPLACEMENT Right 2014 TRANSURETHRAL ELEC-SURG PROSTATECTOM 2020 VASECTOMY UNI/BI SPX W/POSTOP SEMEN EXAMS 1990 ALLERGIES Percocet [Oxycodone-Acetaminophen], Codeine, and Vicodin [Hydrocodone-Acetaminophen] MEDICATIONS metoprolol tartrate, short acting, (LOPRESSOR) 25 mg tablet Take 0.5 tablets by mouth twice daily. CARDIOLOGY. doxazosin (CARDURA) 2 mg tablet Take 1 tablet by mouth daily at bedtime. UROLOGY. dutasteride (AVODART) 0.5 mg capsule Take 1 capsule by mouth once daily. UROLOGY. carbidopa-levodopa (SINEMET) 25-100 mg per tablet Take one(1) tablet daily at bedtime. multivit-mins 25-folic acid-D3 3-2,000 mg-unit tab Take by mouth. gabapentin (NEURONTIN) 300 mg capsule Take 1 capsule by mouth daily at bedtime. ticagrelor (BRILINTA) 60 mg tablet Take 1 tablet by mouth twice daily. pravastatin (PRAVACHOL) 40 mg tablet Take 1 tablet by mouth daily at bedtime. magnesium oxide (MAG-OX) 400 mg (241.3 mg magnesium) tablet Take 400 mg by mouth once daily. COMPOUNDED PRESCRIPTION Prostaglandin 30mcg/ml injectable, bimix papaverine/phentolamine 30mg/0.5mg/ml injectable for penile intracavernosal inj for ED Melatonin 5 mg cap Take by mouth. CALCIUM CARBONATE/VITAMIN D3 (VITAMIN D-3 ORAL) Take by mouth. Insulin Syringe-Needle U-100 1 mL 31 gauge x 5/16 For penile intracavernosal injections for ED FAMILY HISTORY Problem Relation Age of Onset Hypertension Mother Stroke Mother Cancer Father lung - smoker Social History Tobacco Use Smoking status: Former Packs/day: 1 Types: Cigarettes Smokeless tobacco: Never Tobacco comments: Quit over 30 years ago Vaping Use Vaping Use: Never used Substance Use Topics Alcohol use: Yes Alcohol/week: 3.0 standard drinks of alcohol Types: 3 Standard drinks or equivalent per week Drug use: Never BP 123/73 Pulse 68 Resp 18 Wt 101.2 kg (223 lb) SpO2 98% BMI 31.10 kg/m? Physical Exam Vitals reviewed. Constitutional: Appearance: Normal appearance. Neurological: Mental Status: He is alert. Psychiatric: Mood and Affect: Mood normal. Health maintenance reviewed with patient: RSV Vaccine(1 - 1-dose 60+ series) Never done Advance Directive Discussion due on 08/17/2022 DTaP,Tdap,Td Vaccine(1 - Tdap) due on 07/29/2023 Annual PCP Team Chronic Disease Visit due on 07/16/2024 Diabetes Screening due on 07/13/2026 Influenza Vaccine Completed Depression Assessment Completed Hepatitis C Screening Completed Shingrix Vaccine Completed Covid-19 Vaccine Completed Pneumococcal Vaccine: 65+ Completed Colorectal Cancer Screening Discontinued BP Controlled (<130/80) Discontinued DATA REVIEWED: Most recent labs ASSESSMENT/PLAN: 1. Fatigue, unspecified type - ICD9: 780.79, ICD10: R53.83 (primary diagnosis) Reviewed labs with patient. Vitamin B12 on the low end of normal. He would like to start B12 injections ag (more content not included)... [facility] 07-16-2023 History of Present illness Narrative CC: Patient presents with: Follow Up: Labs HPI Luís Hernandez is a 78 year old male who presents today for above. He has some questions about his recent blood work and would like to review. Denies any other concerns today. He was seen last week for reoccurrence of neck pain and referred to PT. Patient had first PT session this week and will have at least 12 total. 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 Chronic prostatitis 04/30/2009 Elevated prostate specific antigen (PSA) Erectile dysfunction due to arterial insufficiency 03/17/2018 Essential hypertension, benign Hypertrophy of prostate with urinary obstruction and other lower urinary tract symptoms (LUTS) 06/09/2007 Knee joint replacement by other means 03/12/2011 Knee pain 01/09/2011 NSTEMI (non-ST elevated myocardial infarction) (HCC) 08/29/2022 OLIVA on CPAP 07/29/2022 [facility] Restless legs syndrome (RLS) Stented coronary artery (proximal RCA) 08/29/2022 Umbilical hernia without mention of obstruction or gangrene 06/16/2012 Urine retention 08/19/2019 PAST SURGICAL HISTORY Procedure Laterality Date ARTHROSCOPY KNEE DIAGNOSTIC W/WO SYNOVIAL BX SPX 2003 Arthroscopy, knee ARTHROSCOPY KNEE DIAGNOSTIC W/WO SYNOVIAL BX SPX 09/2006 Arthroscopy, knee ARTHRP KNE CONDYLE&PLATU MEDIAL&LAT COMPARTMENTS 2010 Knee replacement, total lt CORONARY STENT EA VESSEL 08/25/2022 PTCA/GIUSEPPE Prox. RCA Resolute [place] 4 x 18 mm LAMINECTOMY,CERVICAL 07/04/2020 NASAL/SPHENOID SINUS ENDOSCOPY,DX 10/07/2005 removal of cyst in sinus PARATHYROIDECTOMY/EXPLORATION PARATHYROIDS 2017 Dr Cl goldsmith w/ dr Brooke PAST SURGICAL HISTORY OF 2010 BCC excision of chest PAST SURGICAL HISTORY OF Right trigger finger RPR 1ST INGUN HRNA AGE 6 YRS/> REDUCIBLE 1987 Hernia repair, inguinal double TOTAL KNEE REPLACEMENT Right 2014 TRANSURETHRAL ELEC-SURG PROSTATECTOM 2020 VASECTOMY UNI/BI SPX W/POSTOP SEMEN EXAMS 1990 ALLERGIES Percocet [Oxycodone-Acetaminophen], Codeine, and Vicodin [Hydrocodone-Acetaminophen] MEDICATIONS metoprolol tartrate, short acting, (LOPRESSOR) 25 mg tablet Take 0.5 tablets by mouth twice daily. CARDIOLOGY. doxazosin (CARDURA) 2 mg tablet Take 1 tablet by mouth daily at bedtime. UROLOGY. dutasteride (AVODART) 0.5 mg capsule Take 1 capsule by mouth once daily. UROLOGY. carbidopa-levodopa (SINEMET) 25-100 mg per tablet Take one(1) tablet daily at bedtime. multivit-mins 25-folic acid-D3 3-2,000 mg-unit tab Take by mouth. gabapentin (NEURONTIN) 300 mg capsule Take 1 capsule by mouth daily at bedtime. ticagrelor (BRILINTA) 60 mg tablet Take 1 tablet by mouth twice daily. pravastatin (PRAVACHOL) 40 mg tablet Take 1 tablet by mouth daily at bedtime. magnesium oxide (MAG-OX) 400 mg (241.3 mg magnesium) tablet Take 400 mg by mouth once daily. COMPOUNDED PRESCRIPTION Prostaglandin 30mcg/ml injectable, bimix papaverine/phentolamine 30mg/0.5mg/ml injectable for penile intracavernosal inj for ED Melatonin 5 mg cap Take by mouth. CALCIUM CARBONATE/VITAMIN D3 (VITAMIN D-3 ORAL) Take by mouth. Insulin Syringe-Needle U-100 1 mL 31 gauge x 5/16 For penile intracavernosal injections for ED FAMILY HISTORY Problem Relation Age of Onset Hypertension Mother Stroke Mother Cancer Father lung - smoker Social History Tobacco Use Smoking status: Former Packs/day: 1 Types: Cigarettes Smokeless tobacco: Never Tobacco comments: Quit over 30 years ago Vaping Use Vaping Use: Never used Substance Use Topics Alcohol use: Yes Alcohol/week: 3.0 standard drinks of alcohol Types: 3 Standard drinks or equivalent per week Drug use: Never BP 123/73 Pulse 68 Resp 18 Wt 101.2 kg (223 lb) SpO2 98% BMI 31.10 kg/m Physical Exam Vitals reviewed. Constitutional: Appearance: Normal appearance. Neurological: Mental Status: He is alert. Psychiatric: Mood and Affect: Mood normal. Health maintenance reviewed with patient: RSV Vaccine(1 - 1-dose 60+ series) Never done Advance Directive Discussion due on 08/17/2022 DTaP,Tdap,Td Vaccine(1 - Tdap) due on 07/29/2023 Annual PCP Team Chronic Disease Visit due on 07/16/2024 Diabetes Screening due on 07/13/2026 Influenza Vaccine Completed Depression Assessment Completed Hepatitis C Screening Completed Shingrix Vaccine Completed Covid-19 Vaccine Completed Pneumococcal Vaccine: 65+ Completed Colorectal Cancer Screening Discontinued BP Controlled (<130/80) Discontinued DATA REVIEWED: Most recent labs ASSESSMENT/PLAN: 1. Fatigue, unspecified type - ICD9: 780.79, ICD10: R53.83 (primary diagnosis) Reviewed labs with patient. Vitamin B12 on the low end of normal. He would like to start B12 injections again, they were very effective in the past with improving chronic fatigue. He is able to do the injections himself, prescriptions sent to the pharmacy. 2. Vitamin B12 deficiency - ICD9: 266.2, ICD10: E53.8 As above 3. PSA elevation - ICD9: 790.93, ICD10: R97.20 Mildly elevated. Managed by urology, follow-up as instructed 4. Vitamin D deficiency - ICD9: 268.9, ICD10: E55.9 resolved 5. Cervicalgia - ICD9: 723.1, ICD10: M54.2 Continue with PT Prescription instructions reviewed with patient as applicable. Potential red flag symptoms discussed with the patient. Reviewed appropriate action plan to take if red flag symptoms occur. Patient agreeable to treatment plan. During this patient visit I have spent approximately 20 minutes in counseling regarding medications, test results, and coordinating care. Dary Dow APRN.CNP documented in this encounter [facility] 07-13-2023 Note HNO ID: [id number] Author: Dary Dow APRN.CNP Service: ? Author Type: Nurse Practitioner Type: Progress Notes Filed: 07/14/2023 8:30 AM Note Text: CC: Patient presents with: Fatigue asking for physical therapy order for neck HPI Luís Hernandez is a 78 year old male who presents today for above. Neck pain x 2 months Located: left side of neck by his spine Described as: constant aching Cause: denies fall or injury Pain is aggravated by: movement of the head Pain is alleviated by avoiding aggravating movements Associated symptoms include: intermittent tingling in the left hand. Pain is waking him up at night and having trouble sleeping. Denies upper extremity weakness, numbness/tingling anywhere else Treatments tried: NSAIDs Ever had pain like this before: history of chronic neck issues, cervical laminectomy two years ago. Pain had not been an issue since his surgery until now Fatigue-chronic, worsening over the past two months Sleep disturbance: Yes due to neck pain Fever/chills: No Night sweats: No Change in appetite: No Weight change: No Cold intolerance: No Change in hair or skin texture: No Depressed mood/anhedonia: No Recent illness: No Medications: no new medications Pertinent medical history: OLIVA-wearing CPAP every night with no issues. He just saw Dr. Carpenter, [facility] card reviewed and sleep apnea stable. 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 Last follow-up in January, EKG done and no concerning findings. History of partial parathyroidectomy. [employer] in [place], no follow-up in the past two years. History of Vitamin B12 deficiency treated with monthly B12 injections Review of Systems Respiratory: Negative for cough, chest tightness, shortness of breath and wheezing. Cardiovascular: Negative for chest pain, palpitations and leg swelling. Gastrointestinal: Negative for abdominal pain, anal bleeding, blood in stool, constipation, diarrhea and nausea. Genitourinary: Negative for difficulty urinating and hematuria. Musculoskeletal: Negative for arthralgias and myalgias. Neurological: Negative for dizziness, tremors, syncope, weakness and light-headedness. Hematological: Negative for adenopathy. Does not bruise/bleed easily. 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 Chronic prostatitis 04/30/2009 Elevated prostate specific antigen (PSA) Erectile dysfunction due to arterial insufficiency 03/17/2018 Essential hypertension, benign Hypertrophy of prostate with urinary obstruction and other lower urinary tract symptoms (LUTS) 06/09/2007 Knee joint replacement by other means 03/12/2011 Knee pain 01/09/2011 NSTEMI (non-ST elevated myocardial infarction) (HCC) 08/29/2022 OLIVA on CPAP 07/29/2022 [facility] Restless legs syndrome (RLS) Stented coronary artery (proximal RCA) 08/29/2022 Umbilical hernia without mention of obstruction or gangrene 06/16/2012 Urine retention 08/19/2019 PAST SURGICAL HISTORY Procedure Laterality Date ARTHROSCOPY KNEE DIAGNOSTIC W/WO SYNOVIAL BX SPX 2003 Arthroscopy, knee ARTHROSCOPY KNEE DIAGNOSTIC W/WO SYNOVIAL BX SPX 09/2006 Arthroscopy, knee ARTHRP KNE CONDYLEANDPLATU MEDIALANDLAT COMPARTMENTS 2010 Knee replacement, total lt CORONARY STENT EA VESSEL 08/25/2022 PTCA/GIUSEPPE Prox. RCA Resolute [place] 4 x 18 mm LAMINECTOMY,CERVICAL 07/04/2020 NASAL/SPHENOID SINUS ENDOSCOPY,DX 10/07/2005 removal of cyst in sinus PARATHYROIDECTOMY/EXPLORATION PARATHYROIDS 2017 Dr Cl goldsmith w/ dr Brooke PAST SURGICAL HISTORY OF 2010 BCC excision of chest PAST SURGICAL HISTORY OF Right trigger finger RPR 1ST INGUN HRNA AGE 6 YRS/> REDUCIBLE 1988 Hernia repair, inguinal double TOTAL KNEE REPLACEMENT Right 2014 TRANSURETHRAL ELEC-SURG PROSTATECTOM 2020 VASECTOMY UNI/BI SPX W/POSTOP SEMEN EXAMS 1990 ALLERGIES Percocet [Oxycodone-Acetaminophen], Codeine, and Vicodin [Hydrocodone-Acetaminophen] MEDICATIONS metoprolol tartrate, short acting, (LOPRESSOR) 25 mg tablet Take 0.5 tablets by mouth twice daily. CARDIOLOGY. doxazosin (CARDURA) 2 mg tablet Take 1 tablet by mouth daily at bedtime. UROLOGY. dutasteride (AVODART) 0.5 mg capsule Take 1 capsule by mouth once daily. UROLOGY. carbidopa-levodopa (SINEMET) 25-100 mg per tablet Take one(1) tablet daily at bedtime. multivit-mins 25-folic acid-D3 3-2,000 mg-unit tab Take by mouth. gabapentin (NEURONTIN) 300 mg capsule Take 1 capsule by mouth daily at bedtime. ticagrelor (BRILINTA) 60 mg tablet Take 1 tablet by mouth twice daily. pravastatin (PRAVACHOL) 40 mg tablet Take 1 tablet by mouth daily at bedtime. magnesium oxide (MAG-OX) 400 mg (241.3 mg magnesium) tablet Take 400 mg by mouth once daily. COMPOUNDED PRESCRIPTION Prostaglandin 30mcg/ml injectable, bimix papaverine/phentolamine 30mg/0.5mg/ml injectable for penile intracavernosal inj for ED Melatonin 5 (more content not included)... [facility] 02-25-2023 Note HNO ID: [id number] Author: Haroldo Taylor MD Service: ? Author Type: Physician Type: Progress Notes Filed: 02/25/2023 3:35 PM Note Text: This note was created using Play for [employer]. Subjective Luís Hernandez is a 78 year old male. He was doing well. He was not accurate in medication reconciliation, which I had to clarify after his visit. His obstructive sleep apnea was well controlled, and he felt benefit from using his CPAP 6-7 hours nightly. Review of Systems Constitutional: Negative for fatigue and fever. Respiratory: Negative for cough and shortness of breath. Cardiovascular: Negative for chest pain, palpitations and leg swelling. Gastrointestinal: Negative for abdominal pain and constipation. Genitourinary: Negative for difficulty urinating. Neurological: Negative for dizziness and headaches. ACTIVE PROBLEM LIST [place] On Cpap Chronic Neck Pain Restless Leg Syndrome Primary Hypertension Hyperlipidemia Stented coronary artery (proximal RCA) Benign Prostatic Hyperplasia Current Outpatient Medications Medication Sig multivit-mins 25-folic acid-D3 3-2,000 mg-unit tab Take by mouth. gabapentin (NEURONTIN) 300 mg capsule Take 1 capsule by mouth daily at bedtime. ticagrelor (BRILINTA) 60 mg tablet Take 1 tablet by mouth twice daily. pravastatin (PRAVACHOL) 40 mg tablet Take 1 tablet by mouth daily at bedtime. magnesium oxide (MAG-OX) 400 mg (241.3 mg magnesium) tablet Take 400 mg by mouth once daily. COMPOUNDED PRESCRIPTION Prostaglandin 30mcg/ml injectable, bimix papaverine/phentolamine 30mg/0.5mg/ml injectable for penile intracavernosal inj for ED Melatonin 5 mg cap Take by mouth. CALCIUM CARBONATE/VITAMIN D3 (VITAMIN D-3 ORAL) Take by mouth. Insulin Syringe-Needle U-100 1 mL 31 gauge x 5/16 For penile intracavernosal injections for ED metoprolol tartrate, short acting, (LOPRESSOR) 25 mg tablet Take 0.5 tablets by mouth twice daily. CARDIOLOGY. doxazosin (CARDURA) 2 mg tablet Take 1 tablet by mouth daily at bedtime. UROLOGY. dutasteride (AVODART) 0.5 mg capsule Take 1 capsule by mouth once daily. UROLOGY. carbidopa-levodopa (SINEMET) 25-100 mg per tablet Take one(1) tablet daily at bedtime. No current facility-administered medications for this visit. Objective BP 124/78 (BP Site: Left Arm, BP Position: Sitting, BP Cuff Size: Large Adult) Pulse 64 Resp 24 Ht 180.3 cm (5' 11 ) Wt 97.1 kg (214 lb) BMI 29.85 kg/m? Physical Exam Constitutional: Appearance: He is not ill-appearing. HENT: Head: Normocephalic. Cardiovascular: Rate and Rhythm: Normal rate and regular rhythm. Heart sounds: No murmur heard. No gallop. Pulmonary: Breath sounds: Normal breath sounds. Abdominal: General: There is no distension. Palpations: Abdomen is soft. Tenderness: There is no abdominal tenderness. Musculoskeletal: Right lower leg: No edema. Left lower leg: No edema. Neurological: General: No focal deficit present. Mental Status: He is alert. Gait: Gait normal. Assessment and Plan 1. Medicare annual wellness visit, subsequent - ICD9: V70.0, ICD10: Z00.00 (primary diagnosis) See wellness note. 2. OLIVA on CPAP - ICD9: 327.23, V46.8, ICD10: G47.33 Using and benefiting from nightly CPAP use. 3. Restless leg syndrome - ICD9: 333.94, ICD10: G25.81 Controlled. - CARBIDOPA 25 MG-LEVODOPA 100 MG TABLET 4. Primary hypertension - ICD9: 401.9, ICD10: I10 - Controlled - Continue current medications 5. Hyperlipidemia, unspecified hyperlipidemia type - ICD9: 272.4, ICD10: E78.5 - Controlled - Continue current medications 6. Stented coronary artery (proximal RCA) - ICD9: V45.82, ICD10: Z95.5 Medication list updated. - METOPROLOL TARTRATE 25 MG TABLET 7. Benign prostatic hyperplasia with lower urinary tract symptoms, symptom details unspecified - ICD9: 600.01, ICD10: N40.1 Problem list and medication list updated. - DOXAZOSIN 2 MG TABLET - DUTASTERIDE 0.5 MG CAPSULE Haroldo Taylor MD [facility] 02-25-2023 Note HNO ID: [id number] Author: Haroldo Taylor MD Service: ? Author Type: Physician Type: Progress Notes Filed: 02/25/2023 3:35 PM Note Text: Luís Hernandez is a 78 year old male here for a Medicare Subsequent Annual Wellness Visit Health Risk Assessment In general, health is: Very good Concerns with balance:Not at all Concerns with teeth or dentures:Not at all Concerns with sexual function:Not at all [place] anxious, stressed, angry, irritable, lonely, isolated, or had thoughts of hurting themself: Not at all Has little interest or pleasure in doing things: Not at all Bothered by feeling down, depressed, or hopeless: Not at all Needs help with grocery shopping, cooking, housework, bathing, grooming, dressing, eating, sitting or standing, walking, using the toilet, handling finances, taking medications, using the telephone, or driving: No Following safety precautions in the home environment and vehicle: removed throw rugs from floors, installed grab bars in the bathroom, handrails in stairwells, having adequate lighting, wearing seatbelt at all times?: Yes Smokes cigarettes, vapes, or chew tobacco: No Eats healthy foods including fruits, vegetables, whole grains, and fiber-rich foods: Nearly every day Number of days per week engages in exercise: 3 days Average alcohol consumption: 2-3 times a week Current Providers Specialists: I have reviewed specialist-related care of the patient in the medical record. Current care team: Patient Care Team: Haroldo Taylor MD as PCP - General (Internal Medicine) Outside specialists seen: Dr. Rebekah Ly, ophthalmology. Dr. Mihaela Dunn, urology. Dr. Henri Hooper, cardiology. Dr. Small, dentist. Medical/Family history review Reviewed and updated problem list, medical/surgical/family/social history, medications, and allergies. Opioid use review Patient is not currently using opioids. Depression screening Depression Screening PHQ-2 Score 08/29/2022 0 Depression screening tool completed and reviewed. Based on score and interview, patient is not at risk for depression. Screening tool discussed with patient, and I recommended no further intervention at this time. Cognitive screening Mini Cog Score: 4 Cognitive screening reviewed and no further action needed (score 3-5) Functional Observation Was the patient's timed Up AND Go test unsteady or ? 12 seconds? No Advance Care Planning End of Life planning discussed, including patient's advanced directive wishes: Yes Measurements BP 124/78 Pulse 64 Resp 24 Ht 5' 11 (1.80m) Wt 214 lb (97.1kg) BMI 29.86 kg/(m2). Visual acuity (required for Welcome to Medicare): follows with optometry/ophthalmology and Right: 20/30 Left: 20/ 70 Both: 20/30 Hearing Evaluation: within normal limits Assessment/Plan - Counseled on healthy diet and regular exercise - Discussed need for and benefit of weight loss. BMI 29.85 kg/(m2) - Fall avoidance - Vaccines recommended Shingrix at pharmacy - Depression screening - Alcohol misuse screening and counseling [facility] 02-25-2023 History of Present illness Narrative This note was created using Motostranoter. Subjective Luís Hernandez is a 78 year old male. He was doing well. He was not accurate in medication reconciliation, which I had to clarify after his visit. His obstructive sleep apnea was well controlled, and he felt benefit from using his CPAP 6-7 hours nightly. Review of Systems Constitutional: Negative for fatigue and fever. Respiratory: Negative for cough and shortness of breath. Cardiovascular: Negative for chest pain, palpitations and leg swelling. Gastrointestinal: Negative for abdominal pain and constipation. Genitourinary: Negative for difficulty urinating. Neurological: Negative for dizziness and headaches. ACTIVE PROBLEM LIST Oliva On Cpap Chronic Neck Pain Restless Leg Syndrome Primary Hypertension Hyperlipidemia Stented coronary artery (proximal RCA) Benign Prostatic Hyperplasia Current Outpatient Medications Medication Sig multivit-mins 25-folic acid-D3 3-2,000 mg-unit tab Take by mouth. gabapentin (NEURONTIN) 300 mg capsule Take 1 capsule by mouth daily at bedtime. ticagrelor (BRILINTA) 60 mg tablet Take 1 tablet by mouth twice daily. pravastatin (PRAVACHOL) 40 mg tablet Take 1 tablet by mouth daily at bedtime. magnesium oxide (MAG-OX) 400 mg (241.3 mg magnesium) tablet Take 400 mg by mouth once daily. COMPOUNDED PRESCRIPTION Prostaglandin 30mcg/ml injectable, bimix papaverine/phentolamine 30mg/0.5mg/ml injectable for penile intracavernosal inj for ED Melatonin 5 mg cap Take by mouth. CALCIUM CARBONATE/VITAMIN D3 (VITAMIN D-3 ORAL) Take by mouth. Insulin Syringe-Needle U-100 1 mL 31 gauge x 5/16 For penile intracavernosal injections for ED metoprolol tartrate, short acting, (LOPRESSOR) 25 mg tablet Take 0.5 tablets by mouth twice daily. CARDIOLOGY. doxazosin (CARDURA) 2 mg tablet Take 1 tablet by mouth daily at bedtime. UROLOGY. dutasteride (AVODART) 0.5 mg capsule Take 1 capsule by mouth once daily. UROLOGY. carbidopa-levodopa (SINEMET) 25-100 mg per tablet Take one(1) tablet daily at bedtime. No current facility-administered medications for this visit. Objective BP 124/78 (BP Site: Left Arm, BP Position: Sitting, BP Cuff Size: Large Adult) Pulse 64 Resp 24 Ht 180.3 cm (5' 11 ) Wt 97.1 kg (214 lb) BMI 29.85 kg/m Physical Exam Constitutional: Appearance: He is not ill-appearing. HENT: Head: Normocephalic. Cardiovascular: Rate and Rhythm: Normal rate and regular rhythm. Heart sounds: No murmur heard. No gallop. Pulmonary: Breath sounds: Normal breath sounds. Abdominal: General: There is no distension. Palpations: Abdomen is soft. Tenderness: There is no abdominal tenderness. Musculoskeletal: Right lower leg: No edema. Left lower leg: No edema. Neurological: General: No focal deficit present. Mental Status: He is alert. Gait: Gait normal. Assessment and Plan 1. Medicare annual wellness visit, subsequent - ICD9: V70.0, ICD10: Z00.00 (primary diagnosis) See wellness note. 2. OLIVA on CPAP - ICD9: 327.23, V46.8, ICD10: G47.33 Using and benefiting from nightly CPAP use. 3. Restless leg syndrome - ICD9: 333.94, ICD10: G25.81 Controlled. - CARBIDOPA 25 MG-LEVODOPA 100 MG TABLET 4. Primary hypertension - ICD9: 401.9, ICD10: I10 - Controlled - Continue current medications 5. Hyperlipidemia, unspecified hyperlipidemia type - ICD9: 272.4, ICD10: E78.5 - Controlled - Continue current medications 6. Stented coronary artery (proximal RCA) - ICD9: V45.82, ICD10: Z95.5 Medication list updated. - METOPROLOL TARTRATE 25 MG TABLET 7. Benign prostatic hyperplasia with lower urinary tract symptoms, symptom details unspecified - ICD9: 600.01, ICD10: N40.1 Problem list and medication list updated. - DOXAZOSIN 2 MG TABLET - DUTASTERIDE 0.5 MG CAPSULE Haroldo Taylor MD Luís Hernandez is a 78 year old male here for a Medicare Subsequent Annual Wellness Visit Health Risk Assessment In general, health is: Very good Concerns with balance:Not at all Concerns with teeth or dentures:Not at all Concerns with sexual function:Not at all [place] anxious, stressed, angry, irritable, lonely, isolated, or had thoughts of hurting themself: Not at all Has little interest or pleasure in doing things: Not at all Bothered by feeling down, depressed, or hopeless: Not at all Needs help with grocery shopping, cooking, housework, bathing, grooming, dressing, eating, sitting or standing, walking, using the toilet, handling finances, taking medications, using the telephone, or driving: No Following safety precautions in the home environment and vehicle: removed throw rugs from floors, installed grab bars in the bathroom, handrails in stairwells, having adequate lighting, wearing seatbelt at all times?: Yes Smokes cigarettes, vapes, or chew tobacco: No Eats healthy foods including fruits, vegetables, whole grains, and fiber-rich foods: Nearly every day Number of days per week engages in exercise: 3 days Average alcohol consumption: 2-3 times a week Current Providers Specialists: I have reviewed specialist-related care of the patient in the medical record. Current care team: Patient Care Team: Haroldo Taylor MD as PCP - General (Internal Medicine) Outside specialists seen: Dr. Rebekah Ly, ophthalmology. Dr. Mihaela Dunn, urology. Dr. Henri Hooper, cardiology. Dr. Small, dentist. Medical/Family history review Reviewed and updated problem list, medical/surgical/family/social history, medications, and allergies. Opioid use review Patient is not currently using opioids. Depression screening Depression Screening PHQ-2 Score 08/29/2022 0 Depression screening tool completed and reviewed. Based on score and interview, patient is not at risk for depression. Screening tool discussed with patient, and I recommended no further intervention at this time. Cognitive screening Mini Cog Score: 4 Cognitive screening reviewed and no further action needed (score 3-5) Functional Observation Was the patient's timed Up & Go test unsteady or ? 12 seconds? No Advance Care Planning End of Life planning discussed, including patient's advanced directive wishes: Yes Measurements BP 124/78 Pulse 64 Resp 24 Ht 5' 11 (1.80m) Wt 214 lb (97.1kg) BMI 29.86 kg/(m^2). Visual acuity (required for Welcome to Medicare): follows with optometry/ophthalmology and Right: 20/30 Left: 20/ 70 Both: 20/30 Hearing Evaluation: within normal limits Assessment/Plan - Counseled on healthy diet and regular exercise - Discussed need for and benefit of weight loss. BMI 29.85 kg/(m^2) - Fall avoidance - Vaccines recommended Shingrix at pharmacy - Depression screening - Alcohol misuse screening and counseling documented in this encounter [facility] 02-25-2023 Instructions Haroldo Taylor MD - 02/25/2023 2:50 PM EDT Advance Directive Forms Advanced Directives Forms (Portuguese) FORMS: [email or web address]-[email or web address]-gfmo-power-[email or web address]- program [email or web address] INFORMATIONAL BROCHURE: [email or web address].[email or web address]/-/s cassets/files/org/patients-visitor s/information/advance-directives.a shx?la=en Advance Directives (non-Portuguese) FORMS: [email or web address] ients/information/medical-decision s-guide/advance-directives#forms-t ab Please bring completed forms to your next appointment or email them to [email or web address]. Patient Resources How to Get Started Talking with Loved Ones about your Wishes at the End of Life [email or web address] /wp-content/uploads//Conver bwsprmRospnfa-AvvolKpqanpvHhj-Ojpe alexander.pdf How to Navigate Conversations with your Care Team around your Preferences [email or web address] come Recombinant shingles vaccine (Shingrix) is recommended; 2 doses 2-6 months apart. Please read information, check with your insurance, and schedule vaccination at your local pharmacy. A prescription is not required. If you are certain you have coverage to receive this vaccine in the office, we can schedule this for you. documented in this encounter [facility] 11-06-2022 Miscellaneous Notes Patient notified PCP has ordered labs, verbalized understanding. Alyssa Munoz LPN ASSESSMENT/PLAN: 1. Fatigue, unspecified type - ICD9: 780.79, ICD10: R53.83 - VITAMIN B12 BLOOD - CBC - BASIC METABOLIC PNL Haroldo Taylor MD Patient calling back to check for PCP answer. Patient said last labs were done when he was in hospital in August, did not think he had Vitamin B 12 checked. Pt calls to report at OV 10/29 he did not talk to pcp about the following sx he has had for the past couple of months: tired a lot, not much energy. Pt reports he used to get B12 injections in the past. Pt is asking if this is something he can do again. Asking if he needs to do labs. Please review and advise. Alycia Schneider LPN documented in this encounter [facility] 10-29-2022 Note HNO ID: [id number] Author: Haroldo Taylor MD Service: ? Author Type: Physician Type: Progress Notes Filed: 10/29/2022 12:22 PM Note Text: This note was created using Motostranoter. Subjective Luís Hernandez is a 77 year old male. He was doing well at cardiac rehab. His blood pressure has been controlled. I reduced doxazosin which was for LUTS prior to TURP in 2020, but never discontinued. He had no significant issues with urination with the dose change. Review of Systems Constitutional: Negative. Respiratory: Negative for shortness of breath. Cardiovascular: Negative for chest pain. Genitourinary: Negative for difficulty urinating, dysuria, frequency and urgency. ACTIVE PROBLEM LIST Erectile Dysfunction Due to Arterial Insufficiency Oliva On Cpap Chronic Neck Pain Restless Leg Syndrome Nstemi (Non-St Elevated Myocardial Infarction) (Hcc) Primary Hypertension Hyperlipidemia Stented coronary artery (proximal RCA) Social History Tobacco Use Smoking status: Former Packs/day: 1.00 Types: Cigarettes Smokeless tobacco: Never Tobacco comments: Quit over 30 years ago Vaping Use Vaping Use: Never used Substance Use Topics Alcohol use: Yes Comment: occasional mixed drink-twice a week Drug use: Never Current Outpatient Medications Medication Sig carbidopa-levodopa (SINEMET 25-100) 25-100 mg per tablet Take 1 tablet by mouth daily at bedtime. multivit-mins 25-folic acid-D3 3-2,000 mg-unit tab Take by mouth. gabapentin (NEURONTIN) 300 mg capsule Take 1 capsule by mouth daily at bedtime. metoprolol tartrate, short acting, (LOPRESSOR) 25 mg tablet Take 1 tablet by mouth twice daily. ticagrelor (BRILINTA) 60 mg tablet Take 1 tablet by mouth twice daily. pravastatin (PRAVACHOL) 40 mg tablet Take 1 tablet by mouth daily at bedtime. celecoxib (CELEBREX) 200 mg capsule Take 200 mg by mouth once daily. magnesium oxide (MAG-OX) 400 mg (241.3 mg magnesium) tablet Take 400 mg by mouth once daily. COMPOUNDED PRESCRIPTION Prostaglandin 30mcg/ml injectable, bimix papaverine/phentolamine 30mg/0.5mg/ml injectable for penile intracavernosal inj for ED Melatonin 5 mg cap Take by mouth. CALCIUM CARBONATE/VITAMIN D3 (VITAMIN D-3 ORAL) Take by mouth. Insulin Syringe-Needle U-100 1 mL 31 gauge x 5/16 For penile intracavernosal injections for ED doxazosin (CARDURA) 2 mg tablet Take 1 tablet by mouth daily at bedtime. No current facility-administered medications for this visit. Objective BP 120/74 (BP Site: Left Arm, BP Position: Sitting, BP Cuff Size: Large Adult) Pulse 68 Resp 16 Wt 95.3 kg (210 lb) BMI 30.13 kg/m? Physical Exam Constitutional: Appearance: He is not ill-appearing. Cardiovascular: Rate and Rhythm: Normal rate and regular rhythm. Heart sounds: No murmur heard. No gallop. Pulmonary: Effort: Pulmonary effort is normal. Breath sounds: Normal breath sounds. Musculoskeletal: Right lower leg: No edema. Left lower leg: No edema. Neurological: Mental Status: He is alert. Assessment and Plan 1. Primary hypertension - ICD9: 401.9, ICD10: I10 (primary diagnosis) - good control - Continue current medication(s) - Reviewed risks of HTN and principles of treatment - Goal of BP <130/80 2. Stented coronary artery (proximal RCA) - ICD9: V45.82, ICD10: Z95.5 On cardiac rehab. 3. History of prostate surgery - ICD9: V45.89, ICD10: Z98.890 Shared medical decision making was done. We agreed to discontinue DOXAZOSIN. He will call if LUTS recur and are bothersome. Haroldo Taylor MD [facility] 10-29-2022 History of Present illness Narrative This note was created using Play for Jobriter. Subjective Luís Hernandez is a 77 year old male. He was doing well at cardiac rehab. His blood pressure has been controlled. I reduced doxazosin which was for LUTS prior to TURP in 2020, but never discontinued. He had no significant issues with urination with the dose change. Review of Systems Constitutional: Negative. Respiratory: Negative for shortness of breath. Cardiovascular: Negative for chest pain. Genitourinary: Negative for difficulty urinating, dysuria, frequency and urgency. ACTIVE PROBLEM LIST Erectile Dysfunction Due to Arterial Insufficiency Oliva On Cpap Chronic Neck Pain Restless Leg Syndrome Nstemi (Non-St Elevated Myocardial Infarction) (Hcc) Primary Hypertension Hyperlipidemia Stented coronary artery (proximal RCA) Social History Tobacco Use Smoking status: Former Packs/day: 1.00 Types: Cigarettes Smokeless tobacco: Never Tobacco comments: Quit over 30 years ago Vaping Use Vaping Use: Never used Substance Use Topics Alcohol use: Yes Comment: occasional mixed drink-twice a week Drug use: Never Current Outpatient Medications Medication Sig carbidopa-levodopa (SINEMET 25-100) 25-100 mg per tablet Take 1 tablet by mouth daily at bedtime. multivit-mins 25-folic acid-D3 3-2,000 mg-unit tab Take by mouth. gabapentin (NEURONTIN) 300 mg capsule Take 1 capsule by mouth daily at bedtime. metoprolol tartrate, short acting, (LOPRESSOR) 25 mg tablet Take 1 tablet by mouth twice daily. ticagrelor (BRILINTA) 60 mg tablet Take 1 tablet by mouth twice daily. pravastatin (PRAVACHOL) 40 mg tablet Take 1 tablet by mouth daily at bedtime. celecoxib (CELEBREX) 200 mg capsule Take 200 mg by mouth once daily. magnesium oxide (MAG-OX) 400 mg (241.3 mg magnesium) tablet Take 400 mg by mouth once daily. COMPOUNDED PRESCRIPTION Prostaglandin 30mcg/ml injectable, bimix papaverine/phentolamine 30mg/0.5mg/ml injectable for penile intracavernosal inj for ED Melatonin 5 mg cap Take by mouth. CALCIUM CARBONATE/VITAMIN D3 (VITAMIN D-3 ORAL) Take by mouth. Insulin Syringe-Needle U-100 1 mL 31 gauge x 5/16 For penile intracavernosal injections for ED doxazosin (CARDURA) 2 mg tablet Take 1 tablet by mouth daily at bedtime. No current facility-administered medications for this visit. Objective BP 120/74 (BP Site: Left Arm, BP Position: Sitting, BP Cuff Size: Large Adult) Pulse 68 Resp 16 Wt 95.3 kg (210 lb) BMI 30.13 kg/m Physical Exam Constitutional: Appearance: He is not ill-appearing. Cardiovascular: Rate and Rhythm: Normal rate and regular rhythm. Heart sounds: No murmur heard. No gallop. Pulmonary: Effort: Pulmonary effort is normal. Breath sounds: Normal breath sounds. Musculoskeletal: Right lower leg: No edema. Left lower leg: No edema. Neurological: Mental Status: He is alert. Assessment and Plan 1. Primary hypertension - ICD9: 401.9, ICD10: I10 (primary diagnosis) - good control - Continue current medication(s) - Reviewed risks of HTN and principles of treatment - Goal of BP <130/80 2. Stented coronary artery (proximal RCA) - ICD9: V45.82, ICD10: Z95.5 On cardiac rehab. 3. History of prostate surgery - ICD9: V45.89, ICD10: Z98.890 Shared medical decision making was done. We agreed to discontinue DOXAZOSIN. He will call if LUTS recur and are bothersome. Haroldo Taylor MD documented in this encounter [facility] 10-22-2022 Miscellaneous Notes Patient states that he uses medication for restless legs at night. Patient asking if this can be refill by provider? Last Office Visit: 08/29/2022 Future Office Visit: 10/29/2022 Requested Prescriptions Pending Prescriptions Disp Refills carbidopa-levodopa (SINEMET 25-100) 25-100 mg per tablet 90 tablet 1 Sig: Take 1 tablet by mouth daily at bedtime. Date of Last Labs: 08/27/2022 documented in this encounter [facility] 09-24-2022 Miscellaneous Notes Noted Dary Dow APRN.CNP Spoke with patient. Given message from provider's office. Patient verbalizes understanding. He states he is no longer having BPH symptoms and he is in cardiac rehab with frequent BP checks which are good. He says he will stop the Doxasozin and talk with his Urologist at appointment on 09/29/22. [place] RN Left a message for pt to call the office and ask to speak to a nurse. Marcia Sofia LPN Per Dr. Taylor's note 08/29/22: Primary hypertension - ICD9: 401.9, ICD10: I10 - good control - Shared medical decision making was done. Doxazosin no longer needed for BPH symptoms and may be associated with CHF. We agreed to reduce dose x 30 days to discontinue if BPH and HTN stable. - DOXAZOSIN 2 MG TABLET How have his blood pressures been since then and is he experiencing any worsening urinary symptoms? If stable he should discontinue the Doxazosin Dary Dow APRN.CNP Patient has been identified by name and date of : Yes Requested Prescriptions Pending Prescriptions Disp Refills doxazosin (CARDURA) 2 mg tablet 90 tablet 3 Sig: Take 1 tablet by mouth daily at bedtime. WENDY-08/29/22 Labs-09/01/22 NOV-10/29/22 med filled 08/29/22 RX INSTRUCTIONS: Patient aware RX will be sent to pharmacy. No need to notify patient. Cande Sofia Pss documented in this encounter [facility] documented as of this encounter (statuses as of 10/29/2022) [facility]01-13-2023 History of Past illness Narrative* Problem Noted Date Resolved Date NSTEMI (non-ST elevated myocardial infarction) 0 08/29/2022 10/29/2022 Urine retention 08/19/2019 07/29/2022 Erectile dysfunction due to arterial insufficien cy 03/17/2018 10/29/2022 Umbilical hernia without mention of obstruction or gangrene 06/16/2012 12/17/2017 Knee pain 01/09/2011 12/17/2017 Last Assessment & Plan: ptaient reports Doing Well w/ Assessment: PLAN: No meds Chronic prostatitis 04/30/2009 07/29/2022 Hypertrophy of prostate with urinary obstruction and other lower urinary tract symptoms (LUTS) 06/09/2007 12/17/2017 Last Assessment & Plan: Assessment: PLAN: Continue cardura 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 022 Elevated prostate specific antigen (PSA) 007 07/29/2022 Hypertrophy of prostate with out urinary obstruction and other lower urinary tract symptoms (LUTS) 07/22/2005 06/09/2007 documented as of this encounter (statuses as of 11/06/2022) [facility] History of Past illness Narrative* Problem Noted Date Diagnosed Date Resolved Date NSTEMI (non-ST elevated myoc ardial infarction) 08/29/2022 10/29/2022 Urine retention 08/19/2019 07/29/2022 Erectile dysfunction due to arterial insufficiency 03/17/2018 10/29/2022 Umbilical hernia without men tion of obstruction or gangrene 06/16/2012 12/17/2017 Knee pain 01/09/2011 12/17/2017 Last Assessment & Plan: ptaient reports Doing Well w/ Assessment: PLAN: No meds Chronic prostatitis 04/30/2009 07/29/20 22 Hypertrophy of prostate with urinary obstruction and other lower urinary tract symptoms (LUTS) 06/09/2007 12/17/2017 Last Assessment & Plan: Assessment: PLAN: Continue cardura 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 Elevated prostate specific antigen (PSA) 09/07/2006 07/29/2022 Hypertrophy of prostate with out urinary obstruction and other lower urinary tract symptoms (LUTS) 07/22/2005 06/09/2007 documented as of this encounter (statuses as of 02/26/2023) [facility] History of Past illness Narrative* Problem Noted Date Diagnosed Date Resolved Date NSTEMI (non-ST elevated myoc ardial infarction) 08/29/2022 10/29/2022 Urine retention 08/19/2019 07/29/2022 Erectile dysfunction due to arterial insufficiency 03/17/2018 10/29/2022 Umbilical hernia without men tion of obstruction or gangrene 06/16/2012 12/17/2017 Knee pain 01/09/2011 12/17/2017 Last Assessment & Plan: ptaient reports Doing Well w/ Assessment: PLAN: No meds Chronic prostatitis 04/30/2009 07/29/20 Hypertrophy of prostate with urinary obstruction and other lower urinary tract symptoms (LUTS) 06/09/2007 12/17/2017 Last Assessment & Plan: Assessment: PLAN: Continue cardura 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 TAKE DOXAZOSIN 2 MG AT BEDTIME X 30 DAYS. YOU CAN STOP THIS IF BLOOD PRESSURE AND URINATION ARE GOOD. [facility] History of Present illness Narrative* Haroldo Taylor MD - 08/29/2022 10:35 AM EST This note was created using NoteWriter. Subjective Transitional Care Management Progress Note The patients TCM visit was performed within the 7 days of discharge. Patient's Date of discharge: 08/26/2022 Date of initial coordinator contact after discharge: 08/27/2022 Discharge diagnosis: NSTEMI, HTN, hyperlipidemia. Medication review completed Yes Haroldo Taylor MD Provider Documentation: In follow-up of hospitalization, Luís Hernandez is a 77 year old male with the chief complaint of transition of care. I have reviewed the patient s last hospital course including diagnostic testing performed during this hospitalization, their discharge medications, and my assessment and plan with the patient and anyfamily members present at today s visit. Luís was admitted for acute chest pain and dyspnea, found to have NSTEMI. He underwent stenting for the RCA lesion and was doing better. He was on doxazosin for hypertension and benign prostatic hypertrophy, but his LUTS resolved with TURP done in 2020. He will follow up with Dr. Hooper for cardiology, and will start cardiac rehab. He sees Dr. Dunn for urology, and Vanessa Krishnan for dermatology. Review of Systems Constitutional: Positive for fatigue. Negative for chills and fever. Respiratory: Negative. Cardiovascular: Negative. Gastrointestinal: Negative. Genitourinary: Negative. Neurological: Negative. ACTIVE PROBLEM LIST Erectile Dysfunction Due to Arterial Insufficiency Oliva On Cpap Chronic Neck Pain Restless Leg Syndrome Nstemi (Non-St Elevated Myocardial Infarction) (Hcc) Primary Hypertension Hyperlipidemia Stented coronary artery (proximal RCA) Social History Tobacco Use Smoking status: Former Packs/day: 1.00 Types: Cigarettes Smokeless tobacco: Never Tobacco comments: Quit over 30 years ago Vaping Use Vaping Use: Never used Substance Use Topics Alcohol use: Yes Comment: occasional mixed drink-twice a week Drug use: Never ALLERGIES Allergen Reactions Percocet [Oxycodone* Intolerance Anxiety and slurred words Codeine Rash itch, nightmares Vicodin [Hydrocodon* Rash, Itching Current Outpatient Medications Medication Sig multivit-mins 25-folic acid-D3 3-2,000 mg-unit tab Take by mouth. celecoxib (CELEBREX) 200 mg capsule Take 200 mg by mouth once daily. magnesium oxide (MAG-OX) 400 mg (241.3 mg magnesium) tablet Take 400 mg by mouth once daily. carbidopa-levodopa (SINEMET 25-100) 25-100 mg per tablet Take 1 tablet by mouth daily at bedtime. COMPOUNDED PRESCRIPTION Prostaglandin 30mcg/ml injectable, bimix papaverine/phentolamine 30mg/0.5mg/ml injectable for penile intracavernosal inj for ED Melatonin 5 mg cap Take by mouth. CALCIUM CARBONATE/VITAMIN D3 (VITAMIN D-3 ORAL) Take by mouth. Insulin Syringe-Needle U-100 1 mL 31 gauge x 5/16 For penile intracavernosal injections for ED gabapentin (NEURONTIN) 300 mg capsule Take 1 capsule by mouth daily at bedtime. doxazosin (CARDURA) 4 mg tablet Take 1 tablet by mouth daily at bedtime. metoprolol tartrate, short acting, (LOPRESSOR) 25 mg tablet Take 1 tablet by mouth twice daily. ticagrelor (BRILINTA) 60 mg tablet Take 1 tablet by mouth twice daily. pravastatin (PRAVACHOL) 40 mg tablet Take 1 tablet by mouth daily at bedtime. No current facility-administered medications for this visit. Objective BP 114/68 Pulse 62 Temp (!) 35.9 C (96.7 F) Resp 18 Wt 98 kg (216 lb) SpO2 94% BMI 30.99 kg/m Physical Exam Constitutional: General: He is not in acute distress. Appearance: He is obese. He is not ill-appearing. HENT: Head: Normocephalic. Cardiovascular: Rate and Rhythm: Normal rate and regular rhythm. Heart sounds: No murmur heard. No gallop. Pulmonary: Effort: Pulmonary effort is normal. Breath sounds: Normal breath sounds. Abdominal: Palpations: Abdomen is soft. Tenderness: There is no abdominal tenderness. Musculoskeletal: Cervical back: No tenderness. Right lower leg: No edema. Left lower leg: No edema. Neurological: General: No focal deficit present. Mental Status: He is alert. Gait: Gait normal. Assessment and Plan 1. NSTEMI (non-ST elevated myocardial infarction) (HCC) - ICD9: 410.70, ICD10: I21.4 (primary diagnosis) New diagnosis. Follow up with Dr. Hooper. - METOPROLOL TARTRATE 25 MG TABLET - TICAGRELOR 60 MG TABLET 2. Primary hypertension - ICD9: 401.9, ICD10: I10 - good control - Shared medical decision making was done. Doxazosin no longer needed for BPH symptoms and may be associated with CHF. We agreed to reduce dose x 30 days to discontinue if BPH and HTN stable. - DOXAZOSIN 2 MG TABLET 3. Hyperlipidemia, unspecified hyperlipidemia type - ICD9: 272.4, ICD10: E78.5 - newly diagnosed - PRAVASTATIN 40 MG TABLET 4. Stented coronary artery (proximal RCA) - ICD9: V45.82, ICD10: Z95.5 - METOPROLOL TARTRATE 25 MG TABLET - TICAGRELOR 60 MG TABLET 5. Chronic neck pain - ICD9: 723.1, 338.29, ICD10: M54.2, G89.29 Dose corrected. 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 Patient identified by name and . TRANSITION CARE MANAGEMENT INITIAL OUTREACH DOCUMENTATION: Date of Outreach: 08/27/2022 Outreach Attempt 1: Contact Made Date of Discharge 08/26/2022 Some recent data might be hidden SUMMARY: -Pt discharged from [facility] on 08/26/22. -Admitted for: chest pain,non-STEMI Do you have a hospital follow up appointment with your PCP? Appointment on 08/29/22 with pcp. Yes. Remind patient of appointment date, time, and location. If not within 14 calendar days of discharge - please reschedule accordingly. MEDICATIONS: Many patients have questions or concerns about their medications once they are home. Were you prescribed any new medications? If yes, what are those medications? Pravastin 40 mg one at bedtime Asa 81 mg daily Metoprolol tartrate 25 mg one twice daily Brilinta 60 mg one twice daily Were you told to hold any medications? No Were any of your medications discontinued? No Do you have any questions about getting or taking your medications? No Your discharge instructions/After visit Summary (AVS) are important in guiding you through the recovery process. Is there anything I might help you understand? No Do you have all the necessary equipment and supplies at home? Yes Spouse says pt is seeing cardiology for follow up 09/23/22 Medical records from recent hospitalization: Placed for provider to review documented in this encounterA[facility]12-27-2022 Miscellaneous Notes* Telephone Encounter - Dary Dow APRN.CNP - 08/12/2022 2:01 PM EST Noted and agree Dary Dow APRN.CNP * Telephone Encounter - Thi Arshad RN - 08/12/2022 12:32 PM EST Pt called in and reports him and his both had the flu and were fatigued and sleeping a lot. Hestates they both took a Covid test at home and it came back negative. He reports they have both hadthe flu for 3 days. Let him know that you should get Tamiflu within the first 48 hours. Let him know to treat the symptoms with OTC medications. Stay hydrated mix Powerade and Gatorade with half water or Pedialyte. To do the BRAT diet and take it slow once feeling better. If become dehydrated and need fluid replacement would need to go to the ER. documented in this encounterAcm[facility]12-13-2022 History of Present illness Narrative* Dary Dow APRN.CNP - 07/29/2022 1:56 PM EST CC: Patient presents with: Establish Care HPI Luís Hernandez is a 77 year old male who presents today for above. Patient was living in [place] 6 months out of the year but decided to move back to [place] and only stay in [place] for a couple months a year. He was seeing Dr. Carlos but changed to Dr. Sahu however he will be retiring soon. BPH- urologist is Dr. Dunn. Recent PSA normal. He had TURP in 2020. He self administers intracavernosal injections of prostaglandin for ED, medication comes from compounding pharmacy in [place]. OLIVA: Is compliant with CPAP. No changes in settings. Denies issues with mask. Denies snoring, un-refreshed sleep, insomnia, excessive daytime drowsiness. Patient denies history of hypertension, states he was started on Cardura for BPH and this keeps hisBP controlled. Taking all medications as prescribed: Yes Side effects: No Home BP's: No Last 3 Encounter BP Readings: Date: BP: 07/29/2022 128/85 07/19/2020 138/82 05/31/2020 128/79 Chronic neck pain: treated with Gabapentin and Celebrex. Symptoms are very well controlled on medications. RLS: treated with Sinemet. Has been taking for years and still works very well at controlling symptoms. Denies side effects REVIEW OF SYSTEMS GENERAL: Negative for malaise, significant weight loss and fever RESPIRATORY: Negative for cough, wheezing and shortness of breath CARDIOVASCULAR: Negative for chest pain, leg swelling and palpitations PAST MEDICAL HISTORY Diagnosis Date Elevated prostate specific antigen (PSA) Essential hypertension, benign Hypertrophy of prostate with urinary obstruction and other lower urinary tract symptoms (LUTS) 06/09/2007 Knee pain 01/09/2011 Restless legs syndrome (RLS) Umbilical hernia without mention of obstruction or gangrene 06/16/2012 PAST SURGICAL HISTORY Procedure Laterality Date ARTHROSCOPY KNEE DIAGNOSTIC W/WO SYNOVIAL BX SPX 2003 Arthroscopy, knee ARTHROSCOPY KNEE DIAGNOSTIC W/WO SYNOVIAL BX SPX -2006 Arthroscopy, knee ARTHRP KNE CONDYLE&PLATU MEDIAL&LAT COMPARTMENTS 2010 Knee replacement, total lt NASAL/SPHENOID SINUS ENDOSCOPY,DX [id number] removal of cyst in sinus PARATHYROIDECTOMY/EXPLORATION PARATHYROIDS 2017 Dr Cl goldsmith w/ dr Brooke PAST SURGICAL HISTORY OF 2010 BCC excision of chest RPR 1ST INGUN HRNA AGE 6 YRS/> REDUCIBLE 1988 Hernia repair, inguinal double SPINE SURGERY HX 07/04/2020 VASECTOMY UNI/BI SPX W/POSTOP SEMEN EXAMS 1990 ALLERGIES Percocet [Oxycodone-Acetaminophen], Codeine, and Vicodin [Hydrocodone-Acetaminophen] MEDICATIONS celecoxib (CELEBREX) 200 mg capsule Take 200 mg by mouth once daily. doxazosin (CARDURA) 4 mg tablet TAKE 1.5 TABLETS BY MOUTH DAILY AT BEDTIME. magnesium oxide (MAG-OX) 400 mg (241.3 mg magnesium) tablet Take 400 mg by mouth once daily. gabapentin (NEURONTIN) 300 mg capsule Take 300 mg by mouth twice daily. carbidopa-levodopa (SINEMET 25-100) 25-100 mg per tablet Take 1 tablet by mouth daily at bedtime. COMPOUNDED PRESCRIPTION Prostaglandin 30mcg/ml injectable, bimix papaverine/phentolamine 30mg/0.5mg/ml injectable for penile intracavernosal inj for ED Melatonin 5 mg cap Take by mouth. CALCIUM CARBONATE/VITAMIN D3 (VITAMIN D-3 ORAL) Take by mouth. Insulin Syringe-Needle U-100 1 mL 31 gauge x 5/16 For penile intracavernosal injections for ED FAMILY HISTORY Problem Relation Age of Onset Hypertension Mother Stroke Mother Cancer Father lung - smoker Social History Tobacco Use Smoking status: Former Packs/day: 1.00 Types: Cigarettes Smokeless tobacco: Never Tobacco comments: quit 10 years ago Substance Use Topics Alcohol use: Yes Comment: wine occasional Drug use: No PHYSICAL EXAM BP 128/85 Pulse 80 Resp 14 Ht 177.8 cm (5' 10 ) Wt 101.6 kg (224 lb) BMI 32.14 kg/m General Appearance: well appearing, in no acute distress, alert Pysch: mood and affect broad and appropriate Lungs: Lungs clear to auscultation. No wheezing, rhonchi, rales. Heart: RRR without murmur, gallop, or rubs. No ectopy Health maintenance reviewed with patient: BP CONTROLLED (<130/80) Never done DTAP,TDAP,TD(1 - Tdap) due on 07/22/2003 SHINGRIX VACCINE(2 of 2) due on 07/21/2020 COVID-19 VACCINE(2 - Moderna series) due on 06/24/2021 ANNUAL PCP TEAM CHRONIC DISEASE VISIT due on 07/19/2021 ADVANCE DIRECTIVE DISCUSSION Never done DEPRESSION ASSESSMENT Never done DIABETES SCREEN due on 06/11/2023 INFLUENZA Completed HEPATITIS C SCREENING Completed PNEUMOCOCCAL: 65+ Completed ASSESSMENT/PLAN: 1. OLIVA on CPAP - ICD9: 327.23, V46.8, ICD10: G47.33, Z99.89 (primary diagnosis) Compliant with CPAP 2. Chronic neck pain - ICD9: 723.1, 338.29, ICD10: M54.2, G89.29 Chronic pain well controlled with Gabapentin and Celebrex daily 3. Restless leg syndrome - ICD9: 333.94, ICD10: G25.81 Stable on Sinemet for years 4. Erectile dysfunction due to arterial insufficiency - ICD9: 607.84, ICD10: N52.01 Follow-up with urology as scheduled. 5. Encounter to establish care with new doctor - ICD9: V65.8, ICD10: Z76.89 - Counseled on healthy diet and regular exercise - Discussed need for and benefit of weight loss. BMI 32.14 kg/(m^2) - Counseled on limiting alcohol intake to 2 drinks per day - Depression screening tool completed and reviewed with patient. Based on score and interview, patient is not at risk for depression and recommended no further intervention at this time. - Vaccines up to date including COVID and Shingrix. He does not know the dates but will update office soon Prescription instructions reviewed with patient as applicable. Potential red flag symptoms discussed with the patient. Reviewed appropriate action plan to take if red flag symptoms occur. Patient agreeable to treatment plan. Dary Dow APRN.CNP documented in this encounterAcmc [facility]09-30-2022 Miscellaneous Notes* Telephone Encounter - Claudia Johnson - 05/16/2022 2:15 PM EDT VALUE BASED CARE ENCOUNTER Patient identified by Name and : Yes Open Care Gaps Annual Wellness Visit Appointment due, unable to schedule Controlling Blood Pressure Recheck above > 140/90 Suspect Conditions external source: HCC12 2020 Breast, Prostate, and Other Cancers and Tumors external source: HCC72 2020 Spinal Cord Disorders/Injuries Outreach Outcome Unable to reach patient Left message Claudia Johnson Population Health Navigator II [phone] F:[phone] May 16, 2022 2:15 PM documented in this encounterAcmc [facility]05-03-2022 Miscellaneous Notes* Telephone Encounter - Thi Adrian APRN - 12/17/2021 4:29 PM EDT Patient has not been seen since 2019, needs updated visit and labs. Please advise and assist with scheduling otherwise no further refills. Thi Adrian APRN (covering for Dr. Hampton) * Telephone Encounter - James Mata LPN - 12/17/2021 2:03 PM EDT Last seen by MD: 07/19/20 Next appointment with MD: none Current Labs: 06/11/20 Date last rx given: 07/23/21 Original ordering physician: Dr. Hampton documented in this encounterAcmc [facility]06-10-2021 Miscellaneous Notes* Telephone Encounter - Naya Weinberg - 01/24/2021 11:17 AM EDT Good afternoon, Please call [facility] to schedule your annual wellness visit with your primary care doctor. Thank you Naya Weinberg [phone] documented in this encounterAcmc [facility]01-03-2020 History of Past illness Narrative* Problem Noted Date Resolved Date Urine retention 08/19/2019 07/29/2022 Umbilical hernia without mention of obstruction or gangrene 06/16/2012 12/17/2017 Knee pain 01/09/2011 12/17/2017 Last Assessment & Plan: ptaient reports Doing Well w/ Assessment: PLAN: No meds Chronic prostatitis 04/30/2009 07/29/2022 Hypertrophy of prostate with urinary obstruction and other lower urinary tract symptoms (LUTS) 06/09/2007 12/17/2017 Last Assessment & Plan: Assessment: PLAN: Continue cardura 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 022 Elevated prostate specific antigen (PSA) 007 07/29/2022 Hypertrophy of prostate with out urinary obstruction and other lower urinary tract symptoms (LUTS) 07/22/2005 06/09/2007 documented as of this encounter (statuses as of 07/29/2022) [facility] History of Past illness Narrative* Problem Noted Date Resolved Date Urine retention 08/19/2019 07/29/2022 Umbilical hernia without mention of obstruction or gangrene 06/16/2012 12/17/2017 Knee pain 01/09/2011 12/17/2017 Last Assessment & Plan: ptaient reports Doing Well w/ Assessment: PLAN: No meds Chronic prostatitis 04/30/2009 07/29/2022 Hypertrophy of prostate with urinary obstruction and other lower urinary tract symptoms (LUTS) 06/09/2007 12/17/2017 Last Assessment & Plan: Assessment: PLAN: Continue cardura 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 022 Elevated prostate specific antigen (PSA) 007 07/29/2022 Hypertrophy of prostate with out urinary obstruction and other lower urinary tract symptoms (LUTS) 07/22/2005 06/09/2007 documented as of this encounter (statuses as of 08/18/2022) [facility] History of Past illness Narrative* Problem Noted Date Resolved Date Urine retention 08/19/2019 07/29/2022 Umbilical hernia without mention of obstruction or gangrene 06/16/2012 12/17/2017 Knee pain 01/09/2011 12/17/2017 Last Assessment & Plan: ptaient reports Doing Well w/ Assessment: PLAN: No meds Chronic prostatitis 04/30/2009 07/29/2022 Hypertrophy of prostate with urinary obstruction and other lower urinary tract symptoms (LUTS) 06/09/2007 12/17/2017 Last Assessment & Plan: Assessment: PLAN: Continue cardura 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 022 Elevated prostate specific antigen (PSA) 007 07/29/2022 Hypertrophy of prostate with out urinary obstruction and other lower urinary tract symptoms (LUTS) 07/22/2005 06/09/2007 documented as of this encounter (statuses as of 08/27/2022) [facility] History of Past illness Narrative* Problem Noted Date Resolved Date Urine retention 08/19/2019 07/29/2022 Umbilical hernia without mention of obstruction or gangrene 06/16/2012 12/17/2017 Knee pain 01/09/2011 12/17/2017 Last Assessment & Plan: ptaient reports Doing Well w/ Assessment: PLAN: No meds Chronic prostatitis 04/30/2009 07/29/2022 Hypertrophy of prostate with urinary obstruction and other lower urinary tract symptoms (LUTS) 06/09/2007 12/17/2017 Last Assessment & Plan: Assessment: PLAN: Continue cardura 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 022 Elevated prostate specific antigen (PSA) 007 07/29/2022 Hypertrophy of prostate with out urinary obstruction and other lower urinary tract symptoms (LUTS) 07/22/2005 06/09/2007 documented as of this encounter (statuses as of 08/29/2022) [facility] History of Past illness Narrative* Problem Noted Date Resolved Date Urine retention 08/19/2019 07/29/2022 Umbilical hernia without mention of obstruction or gangrene 06/16/2012 12/17/2017 Knee pain 01/09/2011 12/17/2017 Last Assessment & Plan: ptaient reports Doing Well w/ Assessment: PLAN: No meds Chronic prostatitis 04/30/2009 07/29/2022 Hypertrophy of prostate with urinary obstruction and other lower urinary tract symptoms (LUTS) 06/09/2007 12/17/2017 Last Assessment & Plan: Assessment: PLAN: Continue cardura 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 022 Elevated prostate specific antigen (PSA) 007 07/29/2022 Hypertrophy of prostate with out urinary obstruction and other lower urinary tract symptoms (LUTS) 07/22/2005 06/09/2007 documented as of this encounter (statuses as of 09/24/2022) [facility] History of Past illness Narrative* Problem Noted Date Resolved Date Urine retention 08/19/2019 07/29/2022 Umbilical hernia without mention of obstruction or gangrene 06/16/2012 12/17/2017 Knee pain 01/09/2011 12/17/2017 Last Assessment & Plan: ptaient reports Doing Well w/ Assessment: PLAN: No meds Chronic prostatitis 04/30/2009 07/29/2022 Hypertrophy of prostate with urinary obstruction and other lower urinary tract symptoms (LUTS) 06/09/2007 12/17/2017 Last Assessment & Plan: Assessment: PLAN: Continue cardura 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 022 Elevated prostate specific antigen (PSA) 007 07/29/2022 Hypertrophy of prostate with out urinary obstruction and other lower urinary tract symptoms (LUTS) 07/22/2005 06/09/2007 documented as of this encounter (statuses as of 10/22/2022) [facility] History of Past illness Narrative* Problem Noted Date Resolved Date Umbilical hernia without mention of obstruction or gangrene 06/16/2012 12/17/2017 Knee pain 01/09/2011 12/17/2017 Last Assessment & Plan: ptaient reports Doing Well w/ Assessment: PLAN: No meds Hypertrophy of prostate with urinary obstruction and other lower urinary tract symptoms (LUTS) 06/09/2007 12/17/2017 Last Assessment & Plan: Assessment: PLAN: Continue cardura Hypertrophy of prostate with out urinary obstruction and other lower urinary tract symptoms (LUTS) 07/22/2005 06/09/2007 documented as of this encounter (statuses as of 01/24/2021) [facility] History of Past illness Narrative* Problem Noted Date Resolved Date Umbilical hernia without mention of obstruction or gangrene 06/16/2012 12/17/2017 Knee pain 01/09/2011 12/17/2017 Last Assessment & Plan: ptaient reports Doing Well w/ Assessment: PLAN: No meds Hypertrophy of prostate with urinary obstruction and other lower urinary tract symptoms (LUTS) 06/09/2007 12/17/2017 Last Assessment & Plan: Assessment: PLAN: Continue cardura Hypertrophy of prostate with out urinary obstruction and other lower urinary tract symptoms (LUTS) 07/22/2005 06/09/2007 documented as of this encounter (statuses as of 12/17/2021) [facility] History of Past illness Narrative* Problem Noted Date Resolved Date Umbilical hernia without mention of obstruction or gangrene 06/16/2012 12/17/2017 Knee pain 01/09/2011 12/17/2017 Last Assessment & Plan: ptaient reports Doing Well w/ Assessment: PLAN: No meds Hypertrophy of prostate with urinary obstruction and other lower urinary tract symptoms (LUTS) 06/09/2007 12/17/2017 Last Assessment & Plan: Assessment: PLAN: Continue cardura Hypertrophy of prostate with out urinary obstruction and other lower urinary tract symptoms (LUTS) 07/22/2005 06/09/2007 documented as of this encounter (statuses as of 05/16/2022) [facility] note* Diagnosis OLIVA on CPAP- Primary Obstructive sleep apnea (adult) (pediatric) Chronic neck pain Cervicalgia Restless leg syndrome Restless legs syndrome (RLS) Erectile dysfunction due to arterial insufficiency Impotence of organic origin Encounter to establish care with new doctor Other reasons for seeking consultation documented in this encounter [facility]* Diagnosis NSTEMI (non-ST elevated myocardial infarction) ([facility] Primary Acute myocardial infarction, subendocardial infarction, episode of care unspecified Primary hypertension Unspecified essential hypertension Hyperlipidemia, unspecified hyperlipidemia type Stented coronary artery (proximal RCA) Postsurgical percutaneous transluminal coronary angioplasty status Chronic neck pain Cervicalgia documented in this encounter [facility]* Diagnosis Primary hypertension Unspecified essential hypertension documented in this encounter [facility]* Diagnosis Primary hypertension- Primary Unspecified essential hypertension Stented coronary artery (proximal RCA) Postsurgical percutaneous transluminal coronary angioplasty status History of prostate surgery Other postprocedural status documented in this encounter [facility]* Diagnosis Fatigue, unspecified type- Primary documented in this encounter [facility]* Diagnosis Medicare annual wellness visit, subsequent- Primary Routine general medical examination at a health care facility OLIVA on CPAP Obstructive sleep apnea (adult) (pediatric) Restless leg syndrome Restless legs syndrome (RLS) Primary hypertension Unspecified essential hypertension Hyperlipidemia, unspecified hyperlipidemia type Stented coronary artery (proximal RCA) Postsurgical percutaneous transluminal coronary angioplasty status Benign prostatic hyperplasia with lower urinary tract symptoms, symptom details unspecified documented in this encounter [facility]* Diagnosis Fatigue, unspecified type- Primary Vitamin B12 deficiency Other B-complex deficiencies PSA elevation Elevated prostate specific antigen (PSA) Vitamin D deficiency Unspecified vitamin D deficiency Cervicalgia documented in this encounter [facility] History of Past Illness Problem Noted Date Resolved Date Umbilical hernia without mention of obstruction or gangrene 06/16/2012 12/17/2017 Knee pain 01/09/2011 12/17/2017 Last Assessment & Plan: ptaient reports Doing Well w/ Assessment: PLAN: No meds Hypertrophy of prostate with urinary obstruction and other lower urinary tract symptoms (LUTS) 06/09/2007 12/17/2017 Last Assessment & Plan: Assessment: PLAN: Continue cardura Hypertrophy of prostate with out urinary obstruction and other lower urinary tract symptoms (LUTS) 07/22/2005 06/09/2007 Problem Noted Date Resolved Date Umbilical hernia without mention of obstruction or gangrene 06/16/2012 12/17/2017 Knee pain 01/09/2011 12/17/2017 Last Assessment & Plan: ptaient reports Doing Well w/ Assessment: PLAN: No meds Hypertrophy of prostate with urinary obstruction and other lower urinary tract symptoms (LUTS) 06/09/2007 12/17/2017 Last Assessment & Plan: Assessment: PLAN: Continue cardura Hypertrophy of prostate with out urinary obstruction and other lower urinary tract symptoms (LUTS) 07/22/2005 06/09/2007 Problem Noted Date Resolved Date Umbilical hernia without mention of obstruction or gangrene 06/16/2012 12/17/2017 Knee pain 01/09/2011 12/17/2017 Last Assessment & Plan: ptaient reports Doing Well w/ Assessment: PLAN: No meds Hypertrophy of prostate with urinary obstruction and other lower urinary tract symptoms (LUTS) 06/09/2007 12/17/2017 Last Assessment & Plan: Assessment: PLAN: Continue cardura Hypertrophy of prostate with out urinary obstruction and other lower urinary tract symptoms (LUTS) 07/22/2005 06/09/2007 Problem Noted Date Resolved Date Umbilical hernia without mention of obstruction or gangrene 06/16/2012 12/17/2017 Knee pain 01/09/2011 12/17/2017 Last Assessment & Plan: ptaient reports Doing Well w/ Assessment: PLAN: No meds Hypertrophy of prostate with urinary obstruction and other lower urinary tract symptoms (LUTS) 06/09/2007 12/17/2017 Last Assessment & Plan: Assessment: PLAN: Continue cardura Hypertrophy of prostate with out urinary obstruction and other lower urinary tract symptoms (LUTS) 07/22/2005 06/09/2007 Problem Noted Date Resolved Date Umbilical hernia without mention of obstruction or gangrene 06/16/2012 12/17/2017 Knee pain 01/09/2011 12/17/2017 Last Assessment & Plan: ptaient reports Doing Well w/ Assessment: PLAN: No meds Hypertrophy of prostate with urinary obstruction and other lower urinary tract symptoms (LUTS) 06/09/2007 12/17/2017 Last Assessment & Plan: Assessment: PLAN: Continue cardura Hypertrophy of prostate with out urinary obstruction and other lower urinary tract symptoms (LUTS) 07/22/2005 06/09/2007 Problem Noted Date Resolved Date Umbilical hernia without mention of obstruction or gangrene 06/16/2012 12/17/2017 Knee pain 01/09/2011 12/17/2017 Last Assessment & Plan: ptaient reports Doing Well w/ Assessment: PLAN: No meds Hypertrophy of prostate with urinary obstruction and other lower urinary tract symptoms (LUTS) 06/09/2007 12/17/2017 Last Assessment & Plan: Assessment: PLAN: Continue cardura Hypertrophy of prostate with out urinary obstruction and other lower urinary tract symptoms (LUTS) 07/22/2005 06/09/2007 Problem Noted Date Resolved Date Umbilical hernia without mention of obstruction or gangrene 06/16/2012 12/17/2017 Knee pain 01/09/2011 12/17/2017 Last Assessment & Plan: ptaient reports Doing Well w/ Assessment: PLAN: No meds Hypertrophy of prostate with urinary obstruction and other lower urinary tract symptoms (LUTS) 06/09/2007 12/17/2017 Last Assessment & Plan: Assessment: PLAN: Continue cardura Hypertrophy of prostate with out urinary obstruction and other lower urinary tract symptoms (LUTS) 07/22/2005 06/09/2007 Advance Directives No Advanced Directives Records FoundDocuments on File Type Date Recorded Patient Immunochemist Expl anation Advance Directive(s) 03/14/2019 1:06 PM Documents on File Type Date Recorded Patient Immunochemist Expl anation Advance Directive(s) 04/01/2023 9:15 AM History of Present Illness * Xavier Hampton J - 05/31/2020 12:59 PM EDT labs reviewed and with acceptable levels for planned surgery pending cardiology clearance. Patient is cleared to proceed with surgery as scheduled. Xavier Hampton DO PRE-OPERATIVE MEDICAL CONSULTATION BP 128/79 Pulse 67 Temp 36.7 C (98.1 F) Ht 180.3 cm (5' 11 ) Wt 96.6 kg (213 lb) SpO2 97% BMI 29.71 kg/m Body mass index is 29.71 kg/m . Patient presents with: Pre-Op Exam: cervical spine sx HISTORY: This is a 75 year old male presents to my clinic today for preoperative evaluation. They are scheduled to undergo cervical spine surgery with general anesthesia with Dr. Chaitanya Ha MD on within 30 days at [facility] . Patient reports to be able to climb a flight of stairs or walk up a hill (5.50 METs). Patient currently denies SOB , chest Pain and claudification. Seeing cardiology today. Reports normal stress 6 months ago. PAST MEDICAL HISTORY Diagnosis Date Elevated prostate specific antigen (PSA) Essential hypertension, benign Hypertrophy of prostate with urinary obstruction and other lower urinary tract symptoms (LUTS) 06/09/2007 Knee pain 01/09/2011 Restless legs syndrome (RLS) Umbilical hernia without mention of obstruction or gangrene 06/16/2012 PAST SURGICAL HISTORY Procedure Laterality Date EXPLORE PARATHYROID GLANDS 2017 Dr Cl goldsmith w/ dr Brooke KNEE SCOPE,DIAGNOSTIC 2003 Arthroscopy, knee KNEE SCOPE,DIAGNOSTIC 2-2006 Arthroscopy, knee NASAL/SPHENOID SINUS ENDOSCOPY,DX [id number] removal of cyst in sinus PAST SURGICAL HISTORY OF 2010 BCC excision of chest REPAIR ING HERNIA,5+Y/O,REDUCIBL 1988 Hernia repair, inguinal double TOTAL KNEE REPLACEMENT 2010 Knee replacement, total lt VASECTOMY 1990 FAMILY HISTORY Problem Relation Age of Onset Hypertension Mother Stroke Mother Cancer Father lung - smoker Social History Tobacco Use Smoking status: Former Smoker Packs/day: 1.00 Types: Cigarettes Smokeless tobacco: Never Used Tobacco comment: quit 10 years ago Substance Use Topics Alcohol use: Yes Comment: wine occasional Drug use: No ALLERGIES Allergen Reactions Percocet [Oxycodone* Intolerance Anxiety and slurred words Codeine itch, nightmares Vicodin [Hydrocodon* Rash, Itching Current Outpatient Medications Medication Sig COMPOUNDED PRESCRIPTION Prostaglandin 30mcg/ml injectable, bimix papaverine/phentolamine 30mg/0.5mg/ml injectable for penile intracavernosal inj for ED Melatonin 5 mg cap Take by mouth. celecoxib (CELEBREX) 200 mg capsule Take 1 capsule by mouth once daily. (Patient taking differently: Take 200 mg by mouth as needed. ) CALCIUM CARBONATE/VITAMIN D3 (VITAMIN D-3 ORAL) Take by mouth. Insulin Syringe-Needle U-100 (BD ULTRAFINE INSULIN) 1 mL 31 x 5/16 Misc Syrg For penile intracavernosal injections for ED carbidopa-levodopa (SINEMET 25-100) 25-100 mg per tablet Take 1 tablet by mouth daily at bedtime. doxazosin (CARDURA) 4 mg tablet Take 1.5 tablets by mouth daily at bedtime. No current facility-administered medications for this visit. Seeing cardiology today REVIEW OF SYSTEMS: GENERAL: Negative for malaise, significant weight loss, night sweats and fever HEENT: No changes in hearing or vision. No sinus pain or pressure, No trouble swallowing RESPIRATORY: Negative for cough, wheezing and shortness of breath CADIOVASCULAR: Negative for chest pain, leg swelling, palpitations, orthopnea GI: Negative for abdominal discomfort, hematochezia, melena, hematemesis, change in bowel habits, diarrhea, constipation, nausea or vomiting. : Negative for dysuria, frequency and incontinence MUSCULOSKELETAL: Negative for joint pain or swelling and muscle pain. HEMATOLOGY Negative for prolonged bleeding, bruising easily, and swollen nodes. ENDOCRINE: Negative for cold or heat intolerance, polyuria, polydipsia and goiter. NEURO: Negative for lightheadedness, dizziness, tremor, gait imbalance, syncope and seizures. PHYSICAL EXAM: GENERAL: Healthy, alert, no distress, cooperative, Smiling SKIN: Skin color, texture, turgor normal. No rashes or lesions. HEENT: PERRL, EOMI, and normal dentition JVD: No jugulovenous distention, No carotid bruits, Carotid pulse normal contour, Supple CARDIAC: Normal S1 and S2; no rubs, murmurs, or gallops LUNGS: Lungs clear to auscultation, Good diaphragmatic excursion ABDOMEN: Non distended, positive bowel sounds all 4 quadrants, soft non-tender, no organomegaly EXTREMITIES: Extremities normal, no deformities, edema, clubbing or skin discoloration. Good capillary refill., No ulcers NEURO: Gait normal. Reflexes normal and symmetric. Sensation grossly intact, Cranial nerves II-XII intact PULSES: 2+ radial, 2+ carotid : not examined/not indicated. EKG: Not indicated MINOR CLINCIAL CRITERIA: Age > than 65 Intermediate Procedure Risks:1-5 % orthopedic surgery Use Beta-blockers in patients meeting any 2 (two) of the following criteria: Aged 65 years or older IMPRESSION: Luís Hernandez is a 75 year old male, History: There is no known pertinent medical condition which may affect lupe- operative course Patient has minor clinical predictors of increased perioperative cardiovascular risk. Patient is scheduled for a intermediate-risk procedure, pending results of labs and cardiology clearance Encounter Diagnosis ICD-10-CM 1. Cervical radiculopathy M54.12 CBC + DIFF COMP METABOLIC PANEL PROTHROMBIN TIME/PT ACTIVATED PTT URINALYSIS, WITH MICROSCOPIC URINE CULTURE HEPATITIS PANEL, GENERAL 2. Need for vaccination Z23 3. Neck pain M54.2 CBC + DIFF COMP METABOLIC PANEL PROTHROMBIN TIME/PT ACTIVATED PTT URINALYSIS, WITH MICROSCOPIC URINE CULTURE HEPATITIS PANEL, GENERAL 4. Preoperative evaluation to rule out surgical contraindication Z01.818 CBC + DIFF COMP METABOLIC PANEL PROTHROMBIN TIME/PT ACTIVATED PTT URINALYSIS, WITH MICROSCOPIC URINE CULTURE HEPATITIS PANEL, GENERAL 5. Fatigue, unspecified type R53.83 CBC + DIFF COMP METABOLIC PANEL PROTHROMBIN TIME/PT ACTIVATED PTT URINALYSIS, WITH MICROSCOPIC URINE CULTURE HEPATITIS PANEL, GENERAL 6. Benign prostatic hyperplasia with urinary obstruction N40.1 CBC + DIFF N13.8 COMP METABOLIC PANEL PROTHROMBIN TIME/PT ACTIVATED PTT URINALYSIS, WITH MICROSCOPIC URINE CULTURE HEPATITIS PANEL, GENERAL 7. Vitamin D deficiency E55.9 CBC + DIFF COMP METABOLIC PANEL PROTHROMBIN TIME/PT ACTIVATED PTT URINALYSIS, WITH MICROSCOPIC URINE CULTURE HEPATITIS PANEL, GENERAL 8. Elevated fasting lipid profile E78.5 CBC + DIFF COMP METABOLIC PANEL PROTHROMBIN TIME/PT ACTIVATED PTT URINALYSIS, WITH MICROSCOPIC URINE CULTURE HEPATITIS PANEL, GENERAL 9. Abnormal movements R25.9 CBC + DIFF COMP METABOLIC PANEL PROTHROMBIN TIME/PT ACTIVATED PTT URINALYSIS, WITH MICROSCOPIC URINE CULTURE HEPATITIS PANEL, GENERAL 10. Elevated prostate specific antigen (PSA) R97.20 CBC + DIFF COMP METABOLIC PANEL PROTHROMBIN TIME/PT ACTIVATED PTT URINALYSIS, WITH MICROSCOPIC URINE CULTURE HEPATITIS PANEL, GENERAL 11. Therapeutic drug monitoring Z51.81 CBC + DIFF COMP METABOLIC PANEL PROTHROMBIN TIME/PT ACTIVATED PTT URINALYSIS, WITH MICROSCOPIC URINE CULTURE HEPATITIS PANEL, GENERAL RECOMMENDATIONS: To Stop NSAID's 7 days before surgery. To Stop ASA 10 - 14 days before surgery. Patient at acceptable cardiac risk for surgery. Beta-madiha not indicated due to low overall risk for perioperative cardiovascular event given patient history and nature of planned procedure I would like to thank you for the kind referral of Mr. Hernandez, I appreciate the opportunity to be involved in his care, Please do not hesitate to call upon me if I may be of further assistance Xavier Hampton, DO documented in this encounter* Xavier Hampton - 07/19/2020 1:13 PM EST NAME: LUÍS HERNANDEZ AGE: [id number] year old SEX: male CHIEF COMPLAINT: Patient presents with: Anxiety: post surgery HISTORY OF PRESENT ILLNESS: Luís is a 75-year-old male who is status post neck surgery approximately 2 weeks ago. He states he is no longer taking any pain medication for his pain however he is suffering from trouble with his mind racing and trying to get to sleep. He has tried melatonin without benefit. He states that he uses CPAP nightly and requested a short supply of lorazepam which he states he is used in the past. We discussed the pros and cons and interactions of benzos with opiates. Hehas assures me that he will not take both opiates and benzos together and thus will give a low-dosesupply. ALLERGIES Allergen Reactions Percocet [Oxycodone* Intolerance Anxiety and slurred words Codeine itch, nightmares Vicodin [Hydrocodon* Rash, Itching Current Outpatient Medications Medication Sig magnesium oxide (MAG-OX) 400 mg (241.3 mg magnesium) tablet Take 400 mg by mouth once daily. gabapentin (NEURONTIN) 300 mg capsule Take 300 mg by mouth three times daily as needed. carbidopa-levodopa (SINEMET 25-100) 25-100 mg per tablet Take 1 tablet by mouth daily at bedtime. doxazosin (CARDURA) 4 mg tablet Take 1.5 tablets by mouth daily at bedtime. COMPOUNDED PRESCRIPTION Prostaglandin 30mcg/ml injectable, bimix papaverine/phentolamine 30mg/0.5mg/ml injectable for penile intracavernosal inj for ED Melatonin 5 mg cap Take by mouth. CALCIUM CARBONATE/VITAMIN D3 (VITAMIN D-3 ORAL) Take by mouth. Insulin Syringe-Needle U-100 (BD ULTRAFINE INSULIN) 1 mL 31 x 5/16 Misc Syrg For penile intracavernosal injections for ED No current facility-administered medications for this visit. REVIEW OF SYSTEMS: GENERAL: negative for malaise, significant weight loss, night sweats and fever. Anxiety trouble sleeping HEENT: No changes in hearing or vision. No sinus pain or pressure, No trouble swallowing RESPIRATORY: Negative for cough, wheezing and shortness of breath CARDIOVASCULAR: Negative for chest pain, leg swelling, palpitations, orthopnea GI: Negative for abdominal discomfort, hematochezia, melena, hematemesis, change in bowel habits, diarrhea, constipation, nausea or vomiting. : Negative for dysuria, frequency and incontinence NEURO: negative for lightheadedness, dizziness, tremor, gait imbalance, syncope and seizures. PHYSICAL EXAM: VITALS: Blood pressure 138/82, pulse 97, temperature 36.9 C (98.4 F), resp. rate 15, height 180.3 cm (5' 11 ), weight 91.2 kg (201 lb), SpO2 99 %., Body mass index is 28.03 kg/m . GENERAL: Well developed, Well nourished, No acute distress. Anxious in a cervical collar HEENT: HEAD: Normal cephalic atraumatic EYES: EOMI, PERRLA, Anicteric sclera EARS: tympanic membrane clear NOSE: clear, no drainage, turbinates appear normal, no polyps THROAT: no pharyngeal erythema, oral ulcers or exudates CHEST: CTA&P, no CVA , no PSM tenderness CV: RRR, normal S1, S2 auscultated, no M/G/R ABD: NABS, flat, nontender, no guarding, no rebound tenderness, no HSM EXTREMITIES: no C/C/E NEUROLOGY: Alert and oriented x3, speech clear and fluent, gait normal FEET: no lesions or deformities and vascular - 2+ DP/PT pulses LAB RESULTS: Results for orders placed or performed in visit on 05/31/20 HEPATITIS PANEL, GENERAL Result Value Ref Range Hep A Ab, Total NON-REACTIVE NON-REACTIVE Hep B Surface Ab, Qual NON-REACTIVE NON-REACTIVE Hep B Surface Ag NON-REACTIVE NON-REACTIVE Hep B Core Ab Total NON-REACTIVE NON-REACTIVE Anti-Hepatitis C NON-REACTIVE NON-REACTIVE Signal to Cut-Off 0.01 <1.00 COMP METABOLIC PANEL Result Value Ref Range Glucose 87 65 - 99 mg/dL BUN 19 7 - 25 mg/dL Creatinine 1.18 0.70 - 1.18 mg/dL Estimated GFR 60 > OR = 60 mL/min/1.73m2 If 70 > OR = 60 mL/min/1.73m2 BUN/Creat Ratio NOT APPLICABLE 6 - 22 (calc) Sodium 141 135 - 146 mmol/L Potassium 4.3 3.5 - 5.3 mmol/L Chloride 105 98 - 110 mmol/L CO2 23 20 - 32 mmol/L Calcium 9.2 8.6 - 10.3 mg/dL Protein, Total 7.0 6.1 - 8.1 g/dL Albumin 4.4 3.6 - 5.1 g/dL Gamma Globulin 2.6 1.9 - 3.7 g/dL (calc) Alb/Glob Ratio 1.7 1.0 - 2.5 (calc) Bilirubin, Total 0.6 0.2 - 1.2 mg/dL Alkaline Phosphatase 73 35 - 144 U/L AST 19 10 - 35 U/L ALT 19 9 - 46 U/L ACTIVATED PTT Result Value Ref Range APTT 26 23 - 32 sec COMPLETE BLOOD COUNT W/AUTO DIFF Result Value Ref Range WBC 7.7 3.8 - 10.8 Thousand/uL RBC 4.87 4.20 - 5.80 Million/uL Hemoglobin 14.8 13.2 - 17.1 g/dL Hematocrit 43.7 38.5 - 50.0 % MCV 89.7 80.0 - 100.0 fL MCH 30.4 27.0 - 33.0 pg MCHC 33.9 32.0 - 36.0 g/dL RDW-CV 12.8 11.0 - 15.0 % Platelet Count 245 140 - 400 Thousand/uL MPV 9.3 7.5 - 12.5 fL Abs Neut (ANC) 5367 1500 - 7800 cells/uL Abs Lymph 1409 850 - 3900 cells/uL Abs Cotton 693 200 - 950 cells/uL Abs Eosin 154 15 - 500 cells/uL Abs Baso 77 0 - 200 cells/uL Neut% 69.7 % Lymph% 18.3 % Cotton% 9.0 % Eosin% 2.0 % Baso% 1.0 % URINALYSIS, MICROSCOPIC ([facility] ONLY) Result Value Ref Range Leukocytes 0-5 < OR = 5 /HPF RBC, Urine 0-2 < OR = 2 /HPF Squamous Epithelial Cells NONE SEEN < OR = 5 /HPF Bacteria NONE SEEN NONE SEEN /HPF Hyaline Casts NONE SEEN NONE SEEN /LPF PROTHROMBIN TIME/PT Result Value Ref Range PT INR 1.0 PT Sec 10.4 9.0 - 11.5 sec [facility] CULTURE, URINE, ROUTINE Result Value Ref Range Advertisement Compositor CULTURE, URINE, ROUTINE CULTURE, URINE, ROUTINE Micro Number: [id number] Test Status: Final Specimen Source: URINE Specimen Quality: Adequate Result: No Growth Test Performed at: [facility] [id number] TY ADAIR MD Specimen Received Date: 06/11/2020 14:35 IMPRESSION: 75 year old male in stable medical condition with the following problem list: Encounter Diagnosis ICD-10-CM 1. Neck pain M54.2 2. Anxiety F41.9 LORazepam (ATIVAN) 0.5 mg PLAN: Medications, orders and follow-up as documented. Xavier Hampton DO documented in this encounter Assessments Diagnosis Cervical radiculopathy- Primary Brachial neuritis or radiculitis nos Need for vaccination Need for prophylactic vaccination and inoculation against unspecified single disease Neck pain Cervicalgia Preoperative evaluation to rule out surgical contraindication Other specified pre-operative examination Fatigue, unspecified type Benign prostatic hyperplasia with urinary obstruction Vitamin D deficiency Unspecified vitamin D deficiency Elevated fasting lipid profile Other and unspecified hyperlipidemia Abnormal movements Elevated prostate specific antigen (PSA) Therapeutic drug monitoring Encounter for therapeutic drug monitoring Diagnosis Neck pain- Primary Cervicalgia Anxiety Anxiety state, unspecified Diagnosis Anxiety- Primary Anxiety state, unspecified Summary Purpose Family History No Family History Records FoundNo Family History Records Found Additional Source Comments Source Comments (unrecognize d section and content) In the event this informatio n is protected by the Federal Confidentiality of Alcohol and Drug Abuse Patient Records regulations: The Federal rules restrict any use of the information to criminally investigate or prosecute any alcohol or drug abuse patient.[facility]igh[facility] the event this information is protected by the Federal Confidentiality of Alcohol and Drug Abuse Patient Records regulations: The Federal rules restrict any use of the information to criminally investigate or prosecute any alcohol or drug abuse patient.[facility]ighIn the event this information is protected by the Federal Confidentiality of Alcohol and Drug Abuse Patient Records regulations: The Federal rules restrict any use of the information to criminally investigate or prosecute any alcohol or drug abuse patient.[facility]ighIn the event this information is protected by the Federal Confidentiality of Alcohol and Drug Abuse Patient Records regulations: The Federal rules restrict any use of the information to criminally investigate or prosecute any alcohol or drug abuse patient.[facility]ighIn the event this information is protected by the Federal Confidentiality of Alcohol and Drug Abuse Patient Records regulations: The Federal rules restrict any use of the information to criminally investigate or prosecute any alcohol or drug abuse patient.[facility]ighIn the event this information is protected by the Federal Confidentiality of Alcohol and Drug Abuse Patient Records regulations: The Federal rules restrict any use of the information to criminally investigate or prosecute any alcohol or drug abuse patient.[facility]ighIn the event this information is protected by the Federal Confidentiality of Alcohol and Drug Abuse Patient Records regulations: The Federal rules restrict any use of the information to criminally investigate or prosecute any alcohol or drug abuse patient.[facility]ighIn the event this information is protected by the Federal Confidentiality of Alcohol and Drug Abuse Patient Records regulations: The Federal rules restrict any use of the information to criminally investigate or prosecute any alcohol or drug abuse patient.[facility]ighIn the event this information is protected by the Federal Confidentiality of Alcohol and Drug Abuse Patient Records regulations: The Federal rules restrict any use of the information to criminally investigate or prosecute any alcohol or drug abuse patient.[facility]ighIn the event this information is protected by the Federal Confidentiality of Alcohol and Drug Abuse Patient Records regulations: The Federal rules restrict any use of the information to criminally investigate or prosecute any alcohol or drug abuse patient.[facility]ighIn the event this information is protected by the Federal Confidentiality of Alcohol and Drug Abuse Patient Records regulations: The Federal rules restrict any use of the information to criminally investigate or prosecute any alcohol or drug abuse patient.[facility]ighIn the event this information is protected by the Federal Confidentiality of Alcohol and Drug Abuse Patient Records regulations: The Federal rules restrict any use of the information to criminally investigate or prosecute any alcohol or drug abuse patient.[facility]ighIn the event this information is protected by the Federal Confidentiality of Alcohol and Drug Abuse Patient Records regulations: The Federal rules restrict any use of the information to criminally investigate or prosecute any alcohol or drug abuse patient.[facility]ighIn the event this information is protected by the Federal Confidentiality of Alcohol and Drug Abuse Patient Records regulations: The Federal rules restrict any use of the information to criminally investigate or prosecute any alcohol or drug abuse patient.[facility]ighIn the event this information is protected by the Federal Confidentiality of Alcohol and Drug Abuse Patient Records regulations: The Federal rules restrict any use of the information to criminally investigate or prosecute any alcohol or drug abuse patient.[facility]ighIn the event this information is protected by the Federal Confidentiality of Alcohol and Drug Abuse Patient Records regulations: The Federal rules restrict any use of the information to criminally investigate or prosecute any alcohol or drug abuse patient.[facility]ighIn the event this information is protected by the Federal Confidentiality of Alcohol and Drug Abuse Patient Records regulations: The Federal rules restrict any use of the information to criminally investigate or prosecute any alcohol or drug abuse patient.[facility]ighIn the event this information is protected by the Federal Confidentiality of Alcohol and Drug Abuse Patient Records regulations: The Federal rules restrict any use of the information to criminally investigate or prosecute any alcohol or drug abuse patient.[facility]ighIn the event this information is protected by the Federal Confidentiality of Alcohol and Drug Abuse Patient Records regulations: The Federal rules restrict any use of the information to criminally investigate or prosecute any alcohol or drug abuse patient.[facility]ighIn the event this information is protected by the Federal Confidentiality of Alcohol and Drug Abuse Patient Records regulations: The Federal rules restrict any use of the information to criminally investigate or prosecute any alcohol or drug abuse patient.[facility]ighIn the event this information is protected by the Federal Confidentiality of Alcohol and Drug Abuse Patient Records regulations: The Federal rules restrict any use of the information to criminally investigate or prosecute any alcohol or drug abuse patient.[facility]ighIn the event this information is protected by the Federal Confidentiality of Alcohol and Drug Abuse Patient Records regulations: The Federal rules restrict any use of the information to criminally investigate or prosecute any alcohol or drug abuse patient.[facility]ighIn the event this information is protected by the Federal Confidentiality of Alcohol and Drug Abuse Patient Records regulations: The Federal rules restrict any use of the information to criminally investigate or prosecute any alcohol or drug abuse patient.[facility]ighIn the event this information is protected by the Federal Confidentiality of Alcohol and Drug Abuse Patient Records regulations: The Federal rules restrict any use of the information to criminally investigate or prosecute any alcohol or drug abuse patient.[facility] Reason for Visit (unrecogniz ed section and content) Reason Comments Pre-op clearnce Reason Comments Anxiety post surgery Reason Comments Medication Request Reason Comments LMTCB Reason Comments Refill Request Reason Comments Patient Update Reason Comments Medicare Wellness Exam Reason Comments VBC Reason Comments Establish Care Reason Onset Date Comments Transition Of Care 08/27/2022 Reason Comments Transition Of Care Follow up [address] night [address] ay in hospital Reason Onset Date Comments Refill Request 10/22/2022 Reason Comments 2 month follow-up Reason Comments Fatigue Patient Question Reason Comments Annual Medicare Wellness F/U 3 Month Reason Comments Follow Up Labs Result Caitlyn - Xavier Hampton - 06/13/2020 6:59 AM EDTTelephone Encounter - Maribeth Mcpherson RN - 06/14/2020 1:35 PM EDTTelephone Encounter - Maribeth Mcpherson RN - 07/20/2020 1:11 PM EST Miscellaneous Notes (unrecog nized section and content) All labs within normal range and stable for surgery documented in this encounter Pre-op clearance faxed, confirmation received. documented in this encounter Seen yesterday in office. Is feeling short of breath status post surgery may need Covid testing or evaluation in the emergency room if severe. Either way perhaps virtual visit will be more warranted then in person should he decide to be evaluated by Patient called requesting a medication to help with his anxiety due to post surgery. Feels he is not getting enough air, had cpap adjusted today. Also, stated he is easily emotional as well. Please advise documented in this encounter Seen yesterday in office. Is feeling short of breath status post surgery may need Covid testing or evaluation in the emergency room if severe. Either way perhaps virtual visit will be more warranted then in person should he decide to be evaluated by Patient called requesting a medication to help with his anxiety due to post surgery. Feels he is not getting enough air, had cpap adjusted today. Also, stated he is easily emotional as well. Please advise documented in this encounter Spoke to patient, message advised, states understanding. Advised I do not feel comfortable prescribing higher dose of lorazepam or that he should take it more often. I have sent in a prescription for Vistaril which will also help with anxiety. Returned patient's call, stated he is experiencing SOB, not sure if he mentioned to MD yesterday, which can cause him to feel anxious. Stated he is also concerned about his BP, which is about the same as when he was here. Also said that the ativan helped a lot, that if he should take more often. Advised he needs to take as prescribed. Wants to know if there is any he can do or should take. Patient would like a call from Dr. Hampton's nurse. Patient did not provide any additional information. Please call patient to [phone] documented in this encounter Notes received. will review Notes received and placed in 's mailbox for review. Patient called to advise [phone] on 10/29. He says the CT was ordered by his Orthopedic DrPatricia Ha- [phone]. He was told PCP needs to be notified for authorization purposes. Dr. Ha office will be faxing office notes. documented in this encounter (unrecognized sect ion and content) No Status Records FoundNo Status Records Found INFORMATION SOURCE (unrecogn ized section and content) DATE CREATED AUTHOR AUTHOR'S ORGANIZ ATION 08/30/2023 [facility] Care Teams (unrecognized sec tion and content) Clinical Laboratory Aide Relationship Specialty Start Date End Date Xavier Hampton DO [address] [place] [address] PCP - General Family Medicine 08/19/19 Clinical Laboratory Aide Relationship Specialty Start Date End Date Haroldo Taylor MD [address] [place], [place] [address] PCP - General Internal Medicine 07/28/22 Clinical Laboratory Aide Relationship Specialty Start Date End Date Haroldo Taylor MD [address] [facility] [place] [address] PCP - General Internal Medicine 07/28/22 Clinical Laboratory Aide Relationship Specialty Start Date End Date Haroldo Taylor MD [address] [facility] [place] [address] PCP - General Internal Medicine 07/28/22 Clinical Laboratory Aide Relationship Specialty Start Date End Date Haroldo Taylor MD [address] [facility] [place] [address] PCP - General Internal Medicine 07/28/22 Clinical Laboratory Aide Relationship Specialty Start Date End Date Haroldo Taylor MD [address] [facility] [place] [address] PCP - General Internal Medicine 07/28/22 Clinical Laboratory Aide Relationship Specialty Start Date End Date Haroldo Taylor MD [address] [facility] [place] [address] PCP - General Internal Medicine 07/28/22 Clinical Laboratory Aide Relationship Specialty Start Date End Date Haroldo Taylor MD [address] [facility] [place] [address] PCP - General Internal Medicine 07/28/22 Clinical Laboratory Aide Relationship Specialty Start Date End Date Haroldo Taylor MD [address] [facility] [place] [address] PCP - General Internal Medicine 07/28/22 Clinical Laboratory Aide Relationship Specialty Start Date End Date Haroldo Taylor MD [address] [facility] [place] [address] PCP - General Internal Medicine 07/28/22 FOR RECORDS PERTAINING TO PATIENTS WHO ARE OR HAVE BEEN ENROLLED IN A CHEMICAL DEPENDENCY/SUBSTANCEABUSE PROGRAM, SOME INFORMATION MAY BE OMITTED. This clinical summary was aggregated from multiple sources. Caution should be exercised in using it in the provision of clinical care. This summary normalizes information from multiple sources, and as a consequence, information in this document may materially change the coding, format and clinical context of patient data. In addition, data may be omitted in some cases. CLINICAL DECISIONS SHOULD BE BASED ON THE PRIMARY CLINICAL RECORDS. [facility] [employer] [facility]. provides no warranty or guarantee of the accuracy or completeness of information in this document.
[2023-10-06 12:13] LABS: PSA,Total- Diagnostic 3.07 ng/mL (0.0-4.0)
== END | disposition home or self-care (01) ==
LOC: LAB 10:45
PROVIDERS: PCP Internal Medicine; Referring Provider Urology; Visit Provider Urology
DX: N40.1 Benign prostatic hyperplasia with lower urinary tract symptoms (principal)
CPT/HCPCS: 36415; 84153

== ENCOUNTER 2024-05-11 07:21 | Day surgery (SDC) | payer MEDICARE, SELFPAY ==
[2022-11-28 10:04] VITALS: BMI 29.9
[2024-05-11] VITALS (8 sets, daily range): BP systolic 113–134; BP diastolic 70–91; PULSE 58–69; RESP 16–18; TEMP 36.1–36.9; O2SAT 93–100; BMI 31.1
--- NOTE | 2024-05-11 | COLBX_PTH ---
PATIENT: LUÍS HERNANDEZ LOC: EN U#:[id number] AGE/SX: 79/M ROOM: RE05/11/[address]: Dr. Truong Crook MD : 1945 BED: DIS: 05/11/2024 SPEC #: [id number] RECD: 05/11/24 12:20 STATUS: GLADYS CERONNavid #: [id number] TOM: 05/11/24 00:[address]: Truong Crook DEPT: SURGICAL PATHOLOGY RECD BY: Raciel Cox ENTERED: 05/11/24 12:20 SP TYPE: COLON BX OTHR DR: Dr. Haroldo Hollis MD Tissues: A - Ascending colon B - COLON BIOPSY Procedures: Surgery Specimen Level IV HEADER OPERATION: Colonoscopy and polypectomy and endoscopic tattoo marking PRE-OP DIAGNOSIS: History of colonic polyps TISSUE SUBMITTED: A- Ascending colon polyp, B- Hepatic flexure polyp MICROSCOPIC DIAGNOSIS A. Ascending colon polyp, polypectomy: Fragments of tubular adenoma. B. Hepatic flexure polyp, polypectomy: Fragments of villous adenoma. Fragments of fecal material. KEILY. 05/12/2024 MICROSCOPIC DESCRIPTION Slides are reviewed. GROSS DESCRIPTION A. Received in fixative is one container labeled with the patient's name and designated Ascending colon polyp. The specimen consists of multiple irregular fragments of light larry soft tissue that in aggregate measure 0.6 x 0.1 x 0.1 cm. The specimen is totally submitted in one cassette. B. Received in fixative is one container labeled with the patient's name and designated Hepatic flexure polyp. The specimen consists of multiple irregular fragments of light larry soft tissue mixed with fecal material that in aggregate measure 3.0 x 1.5 x 0.3 cm. The specimen is totally submitted in one cassette. 05/11/2024 TC:1 CPT:44633o8
[2024-05-11] MEDS: Lactated Ringers 1,000 ML 15 ML IV (07:50)
--- NOTE | 2024-05-11 08:19 | PCM.PRE.AN2 ---
ASA Classification* ASA Classification ASA Classification: 3 Assessment & Plan Anesthesia* Anesthesia Assessment Anesthesia Assessment: Discussed sedation and/or anesthesia options, risks, benefits, and alternatives with patient/parents/legal guardian/POA. Questions invited. The patient/parents/legal guardian/POA seems to understand and agrees to proceed with anesthesia plan. Reviewed the physical assessment, medical history, allergy history and patient home medications list prior to surgery/procedure/anesthetic and documented any changes. Performed airway and anesthesia risk assessments. Anesthesia Type Anesthesia Type: MAC History Source History Obtained from:: Patient and Chart Anesthesia Focused Assessment* Temperature: 98.4 F Pulse Rate: 58 Blood Pressure: 130/77 Respiratory Rate: 16 Pulse Ox: 96 Oxygen Delivery Method: Room Air Airway Assessment Mouth opens: >3 cm Mallampati Score: III Teeth Condition: Caps/Crowns (Patient has several crowns on his molars. These are tight.) and Missing (Patient has several missing molars.) Neck Range of motion (ROM): Limited ROM (Severe decrease in extension secondary to Fusion at C4-5-6) Focused Labs Anesthesia Preop lab: CBC WBC 8.4 K/mm3 (4.4-11.0) 08/30/22 20:50 RBC 4.66 M/mm3 (4.6-6.2) 08/30/22 20:50 Hgb 13.9 g/dL (13.0-16.5) 08/30/22 20:50 Hct 42.1 % (40-54) 08/30/22 20:50 Plt Count 279 K/mm3 (150-450) 08/30/22 20:50 CHEMISTRY Potassium 3.7 mmol/L (3.5-5.1) 08/30/22 20:50 Sodium 139 mmol/L (136-145) 08/30/22 20:50 BUN 20 mg/dL (7-18) H 08/30/22 20:50 Creatinine 1.20 mg/dL (0.70-1.30) 08/30/22 20:50 Glucose 104 mg/dL (74-106) 08/30/22 20:50 TSH 1.63 uIU/mL (0.358-3.74) 12/19/20 15:14 COAG PT 12.9 SECONDS (11.7-14.9) 08/30/22 20:50 Pre-Assessment Diagnosis/Proposed Procedure Planned Operative Procedure(s): COLONOSCOPY Anesthesia History 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 When Was Last Pacemaker Check QUESTION #4 FULL TEXT: You/Your Family Experience fever (hyperthermia) with Anesthesia Last Oral Intake Last Oral intake: Last Oral Intake NPO since 06:30 05/11/24 07:45 Meds taken in AM with sips of Yes 05/11/24 07:45 water? 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 Female No 05/10/24 10:14 HX of Motion Sickness No 05/10/24 10:14 HX of N/V After Surgery No 05/10/24 10:14 Non-Smoker Yes 05/10/24 10:14 Duration of Surgery greater No 05/10/24 10:14 than 60 minutes Number of Risk Factors 1 05/10/24 10:14 PONV Score Low Risk 05/10/24 10:14 Height & Weight Height & Weight: Anesthesia: Height & Weight Height 5 ft 10 in 05/11/24 07:45 Weight: 98.3 kg 05/11/24 07:45 Body Mass Index (BMI) 31.1 05/11/24 07:45 Respiratory Assessment Respiratory Assessment - 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 Has anyone observed you stop breathing during sleep? STOP Results Positive 05/10/24 10:14 QUESTION #5 FULL TEXT : Do you snore loudly (louder than talking or can be heard through closed doors)? 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 Specify any problems Hx of Preganancy in last 3 N/A 05/10/24 10:14 Months Nurse Filling Out Transfusion [facility] 05/10/24 10:14 & Questions: Date: 05/10/24 05/10/24 10:14 Time: 10:23 05/10/24 10:14 Patient unable to answer at this time (ie. 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 Hx Now Gestational Age (in weeks): EDC: Hx Hx Para Hx Section SAB Active Medications Active Medications: Current Medications Generic Name Dose Route Start Last Admin Trade Name Freq PRN Reason Stop Dose Admin Lactated Ringer's 1,000 mls @ 15 mls/hr 05/11/24 08:00 05/11/24 07:50 IV 15 mls/hr .Q48H BROWN Administration PFSH Medical History (Updated 05/10/24 @ 10:22 by Vickie Licea) Alcohol use Thyroid disease Arthritis Prostate disease High cholesterol Back pain History of hiatal hernia Former smoker Sleep apnea CPAP (continuous positive airway pressure) dependence Leg cramps History of heart attack Hypertension History of stress test History of echocardiogram Cardiology follow-up encounter Atherosclerosis of coronary artery of [place] heart without angina pectoris NSTEMI, initial episode of care History of hyperthyroidism Neuropathy Lightheadedness Uncontrolled hypertension Fatigue Coronary artery calcification seen on CAT scan (12/2016) Insomnia Anxiety Osteoarthritis Hyperlipidemia Obesity Restless legs syndrome (RLS) Obstructive sleep apnea Cervical stenosis of spine BPH (benign prostatic hyperplasia) Essential hypertension Home Medications ?Medication ?Instructions ?Recorded ?Last Taken ?Type carbidopa 25 mg-levodopa 100 mg 1 tab PO QHS RLS 06/21/21 08/24/22 History tablet dutasteride 0.5 mg capsule 0.5 mg PO DAILY 01/30/23 Unknown History pravastatin 40 mg tablet See Rx Instructions .Route 09/18/23 Unknown Rx .COMPLEX #90 tabs aspirin 81 mg chewable tablet 81 mg PO DAILY #90 tabs 12/21/23 Unknown Rx clopidogrel 75 mg tablet (Plavix) 75 mg PO DAILY #90 tabs 02/11/24 05/04/24 Rx metoprolol tartrate 50 mg tablet 50 mg PO BID This is a dose 02/11/24 05/11/24 06:30 Rx increase 11/30/23 #180 tabs Allergy/AdvReac Type Severity Reaction Status Date / Time codeine AdvReac unknown Verified 05/11/24 07:50 oxycodone (From Percocet) AdvReac unknown Verified 05/11/24 07:50 Family History Sister Arthritis Mother Hypertension Other CVA (cerebral vascular accident) Surgical History (Updated 05/10/24 @ 10:22 by Vickie Licea) History of cardiac catheterization History of coronary artery stent placement (~08/25/22) History of carpal tunnel surgery History of thyroid surgery Trigger finger History of knee replacement History of herniorrhaphy H/O cervical spine surgery (02/2020) History of transurethral resection of prostate (09/2019) Social History Smoking Status: Former smoker quit date: 08/17/97 how long ago did patient quit smokin years ago alcohol intake: current alcohol intake frequency: a few times a week substance use type: does not use caffeine: Yes Type: coffee Number of servings: 3 Review of Systems (Anesthesia) ROS Narrative System reviewed and no additional complaints, except as documented.
--- NOTE | 2024-05-11 08:27 | PCM.HP.BLA ---
History and Physical Date of Admission: 05/11/24 Date of Service: 02/10/24 MR#: [id number] Acct: [id number] Name: LUÍS LENTZ Rep #: [id number] : 1945 Provider: Dr. Truong Crook MD Age/Sex: 78/M Location: [facility] Status: Signed Intake Vital Signs 01/30/2311:27 02/09/2414:57 Height 5 ft 10 in 5 ft 10 in Weight: 219 lb BMI 31.4 BP 106/76 Blood Pressure Location Rt brachial Position Sitting Respiration 18 Pulse 68 Pulse Source Monitor Temp 97.3 F L Temp Source Temporal Pulse Oximetry (%) 96 Oxygen Delivery Method room air Intake Visit Reasons: SELF REFERRED SCREENING COLONOSCOPY Chief Complaint: self referred screening colonoscopy Is patient in pain?: No Allergies codeine Adverse Reaction (Verified 02/10/24 14:58) unknownoxycodone (From Percocet) Adverse Reaction (Verified 02/10/24 14:58) unknown Medications ?Medication ?Instructions ?Recorded ?Confirmed ?Type carbidopa 25 mg-levodopa 100 mg 1 tab PO QHS parkinsons 06/21/21 02/10/24 History tablet celecoxib 200 mg capsule 200 mg PO DAILY PRN pain courtesy 12/24/22 02/10/24 Rx fill until Primary Can Fill #14 caps dutasteride 0.5 mg capsule 0.5 mg PO DAILY 01/30/23 02/10/24 History pravastatin 40 mg tablet See Rx Instructions .Route 09/18/23 02/10/24 Rx .COMPLEX #90 tabs metoprolol tartrate 50 mg tablet 50 mg PO BID This is a dose 11/30/23 02/10/24 Rx increase 11/30/23 #180 tabs aspirin 81 mg chewable tablet 81 mg PO DAILY #90 tabs 12/21/23 02/10/24 Rx ticagrelor 90 mg tablet 90 mg PO BID #180 tabs 12/21/23 02/10/24 Rx Have you fallen in the past year?: No [facility] Medical History Atherosclerosis of coronary artery of [place] heart without angina pectoris NSTEMI, initial episode of care History of hyperthyroidism Neuropathy Lightheadedness Uncontrolled hypertension Fatigue Coronary artery calcification seen on CAT scan (12/2016) Insomnia Anxiety Osteoarthritis Hyperlipidemia Obesity Restless legs syndrome (RLS) Obstructive sleep apnea Cervical stenosis of spine BPH (benign prostatic hyperplasia) Essential hypertension Surgical History History of coronary artery stent placement (~08/25/22) History of carpal tunnel surgery History of thyroid surgery Trigger finger History of knee replacement History of herniorrhaphy H/O cervical spine surgery (02/2020) History of transurethral resection of prostate (09/2019) Family History Sister ArthritisMother HypertensionOther CVA (cerebral vascular accident) Social History Smoking Status: Former smoker quit date: 08/17/97 how long ago did patient quit smokin years ago alcohol intake: current alcohol intake frequency: a few times a week substance use type: does not use caffeine: Yes Type: coffee Number of servings: 3 HPI HPI HPI: Patient is a 78-year-old male who presents for need to schedule surveillance colonoscopy secondary to a history of polyps. They are referred for surgical consultation from Dr. Hollis. Patient shares that he had prior colonoscopy approximately 5 years ago in [facility]. He recalls that the provider found both polyps as well as internal hemorrhoids, however, he denies any banding to those hemorrhoids. He was advised to follow-up in 5 to 10 years for repeat colonoscopy. They describe their bowel habits as generally normal with a bowel movement once a day or once every other day. They spend roughly 1-2 minutes on the toilet without significant straining. They have not noticed recent bleeding or dark stools. They do regularly take fiber supplements/stool softeners. Patient had no family history of colon cancer, inflammatory bowel disease, or diverticulitis. The patient's weight is stable. The patient is prescribed anticoagulants/blood thinners with Brilinta therapy for history of a PCI performed by Dr. Hooper August 2022. Relevant prior abdominal surgical history includes: Inguinal herniorrhaphy Patient does not have a significant history of GERD/heartburn. It is of note that patient apparently complained of some constipation and abdominal bloating at his PCP visit earlier this month. ROS General General: No weight change, appetite, fatigue, colon cancer, breast cancer or weakness HEENT HEENT: No difficulty swallowing, eye injury, eye surgery, swollen glands or hoarseness Endo Endocrine: Yes thyroid disease; No diabetes mellitus, thyroid cancer, Hair loss, heat intolerance or cold intolerance Skin Skin: No rash or changing moles Musc Musculoskeletal: Yes arthritis; No back problems, rheumatoid arthritis, gout or joint pain Cardio Cardiovascular: Yes atrial fibrillation and heart stent; No murmur, pacemaker, heart disease, high blood pressure, heart attack, palpitations, shortness of breat with exertion or chest pain Psych Psychiatric: No depression, anxiety or hearing voices Resp Respiratory: No shortness of breath, Yes sleep apnea, No cough, No COPD, No asthma, No emphysema and No wheezing Gastro Gastrointestinal: No abdominal pain, No nausea or vomiting, No diarrhea, No constipation, No blood in stool, No acid reflux, No hemorrhoids, No ulcers, No gallbladder problem and No black,tarry stools Vinnie Hematologic: No blood thinners, No blood disorders, No bleeding, No anemia and No blood clots Neuro Neurologic: No numbness, No tingling and No weakness Exam Const General: cooperative, healthy appearing and comfortable Orientation: alert, awake and oriented x3 Resp Effort & Inspection: normal respiratory effort GI Other: Umbilical scar consistent with prior hernia repair, obese, nondistended, soft, nontender to palpation x 4 quadrants Assessment and Plan Assessment and Plan (1) History of colon polyps: Status: Chronic Comment: Patient is a 78-year-old male who arrives to schedule a surveillance colonoscopy given a history of colon polyps. He reports no disruptions to his bowel habits, however, there is documentation suggesting some recent constipation. It is unknown whether or not these polyps were adenomatous in nature. Mr. Lentz recalls his last colonoscopy occurred just prior to the pandemic and he was given a 5 to 10-year follow-up recommendation thus he is now due for that study. Based on the above I agree with the indication to proceed for surveillance colonoscopy as patient appears to otherwise be in excellent health. He is prescribed Brilinta therapy for history of PCI and this will need to be held appropriately for the procedure. Procedure expectations were reviewed and all questions were taken from patient. Plan: ? See clearance to hold Brilinta from [facility] ? Plan will be to complete colonoscopy on first mutually agreeable date under local MAC. Pre-procedure prep discussed and paper instructions provided. Patient is also made aware that he will need to have a company driver with him the day of the procedure. I have examined the patient the following changes are noted: Patient reports that he followed up with [facility] and was transitioned to Plavix. He confirms that he has held this medication 7 days prior to the procedure today. He also confirms that he completed prep successfully in anticipation of today's procedure. He denies any GI complaints had of his procedure. There are no questions related to the expectations for the procedure. Will now proceed to endoscopy suite for colonoscopy as scheduled.
--- NOTE | 2024-05-11 09:53 | OP.CCLET_ITS ---
05/11/2024 Haroldo Hollis [address] [place] [address] Re : Colonoscopy procedure for [place] Lentz Dear Dr. Hollis This procedure was performed on Saturday, May 11, 2024. My impressions and recommendations are as follows: Impressions : - Preparation of the colon was fair. - One 5 mm polyp in the mid ascending colon. Biopsied. - One 20 mm polyp at the hepatic flexure, removed with a cold snare. Polyp resection was incomplete, and the resected tissue was partially retrieved. Tattooed. - The examination was otherwise normal on direct and retroflexion views. Recommendations : - Discharge patient to home (via wheelchair). - Resume previous diet today. - No aspirin, ibuprofen, naproxen, or other non-steroidal anti-inflammatory drugs for 2 days after biopsy. - Resume Plavix (clopidogrel) at prior dose in 3 days. Refer to managing physician for further adjustment of therapy. - Await pathology results. - Repeat colonoscopy date to be determined after pending pathology results are reviewed for surveillance based on pathology results. - Telephone my office for pathology results in 1 week. My findings are described in the full procedure note, which is enclosed. If I can be of further assistance, please feel free to contact me at Doctor phone number(s): , Work: . Sincerely, Truong Crook MD 05/11/2024 9:53:25 AM This report has been signed electronically.
--- NOTE | 2024-05-11 09:53 | OP.COLON_ITS ---
Patient Name: Villa Lentz Procedure Date: 05/11/2024 8:23 AM Date of : 1945 Age: 79 Procedure: Colonoscopy Indications: High risk colon cancer surveillance: Personal history of colonic polyps Providers: Truong Crook MD Referring MD: Haroldo Hollis Medicines: See the Anesthesia note for documentation of the administered medications Patient Profile: Last Colonoscopy: 5 years ago. Complications: No immediate complications. Estimated blood loss: Minimal. Procedure: Pre-Anesthesia Assessment: - The heart rate, respiratory rate, oxygen saturations, blood pressure, adequacy of pulmonary ventilation, and response to care were monitored throughout the procedure. After I obtained informed consent, the scope was passed under direct vision. Throughout the procedure, the patient's blood pressure, pulse, and oxygen saturations were monitored continuously. The Colonoscope was introduced through the anus and advanced to the cecum, identified by the appendiceal orifice, IC valve and transillumination. The colonoscopy was somewhat difficult due to poor bowel prep and significant looping. Successful completion of the procedure was aided by withdrawing and reinserting the scope, applying abdominal pressure and lavage. The patient tolerated the procedure fairly well. The quality of the bowel preparation was fair. Scope In: 8:36:16 AM Scope Withdrawal Time 0 hours 53 minutes 0 seconds Scope Out: 9:42:22 AM Total Procedure Duration Time 1 hour 6 minutes 6 seconds Findings: Enlarged prostate, No biopsies or other specimens were collected for this exam. A 5 mm polyp was found in the mid ascending colon. The polyp was semi-sessile. Biopsies were taken with a cold forceps for histology. Estimated blood loss was minimal. A 20 mm polyp was found in the hepatic flexure. The polyp was semi-sessile. Polypectomy was attempted, initially using a hot snare. Polyp resection was incomplete with this device. This intervention then required a different device and polypectomy technique. The polyp was removed with a cold snare. Polyp resection was incomplete, and the resected tissue was partially retrieved. Area was tattooed with an injection of 3 mL of Bhavna ink. Estimated blood loss was minimal. The exam was otherwise without abnormality on direct and retroflexion views. Impression: - Preparation of the colon was fair. - One 5 mm polyp in the mid ascending colon. Biopsied. - One 20 mm polyp at the hepatic flexure, removed with a cold snare. Polyp resection was incomplete, and the resected tissue was partially retrieved. Tattooed. - The examination was otherwise normal on direct and retroflexion views. Recommendation: - Discharge patient to home (via wheelchair). - Resume previous diet today. - No aspirin, ibuprofen, naproxen, or other non-steroidal anti-inflammatory drugs for 2 days after biopsy. - Resume Plavix (clopidogrel) at prior dose in 3 days. Refer to managing physician for further adjustment of therapy. - Await pathology results. - Repeat colonoscopy date to be determined after pending pathology results are reviewed for surveillance based on pathology results. - Telephone my office for pathology results in 1 week. Procedure Code(s): --- Professional --- 88280, Colonoscopy, flexible; with removal of tumor(s), polyp(s), or other lesion(s) by snare technique 57324, 59, Colonoscopy, flexible; with biopsy, single or multiple 22780, Colonoscopy, flexible; with directed submucosal injection(s), any substance Diagnosis Code(s): --- Professional --- Z86.010, Personal history of colonic polyps D12.2, Benign neoplasm of ascending colon D12.3, Benign neoplasm of transverse colon (hepatic flexure or splenic flexure) CPT copyright 2021 [employer]. All rights reserved. The codes documented in this report are preliminary and upon manager mining review may be revised to meet current compliance requirements. Truong Crook MD 05/11/2024 9:53:25 AM This report has been signed electronically. Number of Addenda: 0 Note Initiated On: 05/11/2024 8:23 AM
--- NOTE | 2024-05-11 09:54 | PCM.POST.ANE ---
Anesthesia: Postop Eval I Current Vital Signs Temperature: 97.4 F Pulse Rate: 67 Blood Pressure: 113/73 Respiratory Rate: 16 Pulse Ox: 96 Oxygen Delivery Method: Room Air Assessment Airway patent: Yes Spontaneous unlabored respirations: Yes Mental status: Asleep nausea: No Vomiting: No Anesthesia Complication: No Fluid Hydration Crystalloid volume administer (ml): 1,600 Total IV fluid infused: 1,600 Progress Note Anesthesia document: Postop Eval 1 completed: Yes
--- NOTE | 2024-05-11 16:21 | PCM.POSTANE2 ---
Anesthesia Postop Eval I Sum Postop Eval Completion status Anesthesia document: Postop Eval 1 completed: Yes Anesthesia Postop Eval I Summary Anesthesia Postop Eval I Summary: Anesthesia Postop Eval I: Assessment Summary Airway patent Yes 05/11/24 09:55 [email or web address] Spontaneous unlabored Yes 05/11/24 09:55 [email or web address] respirations Mental status Asleep 05/11/24 09:55 [email or web address] nausea No 05/11/24 09:55 [email or web address] Vomiting No 05/11/24 09:55 [email or web address] Anesthesia Postop Eval I: Fluid Summary Crystalloid volume administer 1,600 05/11/24 09:55 [email or web address] (ml) Colloids volume administered ( ml) Blood Product volume administered (ml) Total IV fluid infused 1,600 05/11/24 09:55 [email or web address] Anesthesia Postop Eval I: Summary Notes Anesthesia Complication No 05/11/24 09:55 [email or web address] Anesthesia Complication Comment: Post-operative progress note Anesthesia: Postop Eval II Evaluation Mental status: Awake and Calm Pain Level: 0 nausea: No Vomiting: No Complications Anesthesia Complication: No
== END 2024-05-11 10:34 | disposition home or self-care (01) ==
LOC: EN 07:23 → AC 07:24
PROVIDERS: PCP Internal Medicine; Referring Provider Internal Medicine; Visit Provider Surgery
PROC: 0DJD8ZZ Inspection of Lower Intestinal Tract, Via Natural or Artificial Opening Endoscopic (ICD-10-PCS; CPT 45378; principal; 2024-05-11 08:25)
DX: Z12.11 Encounter for screening for malignant neoplasm of colon (principal); K63.5 Polyp of colon; Z86.010 Personal history of colon polyps; I25.10 Atherosclerotic heart disease of native coronary artery without angina pectoris; I10 Essential (primary) hypertension; Z87.891 Personal history of nicotine dependence; E78.5 Hyperlipidemia, unspecified; Z95.5 Presence of coronary angioplasty implant and graft; Z96.659 Presence of unspecified artificial knee joint; N40.0 Benign prostatic hyperplasia without lower urinary tract symptoms; D12.3 Benign neoplasm of transverse colon
CPT/HCPCS: 45381; 45385; 45380; 88305; J7120; A4648; J2405

== ENCOUNTER 2024-07-06 08:44 | Day surgery (SDC) | payer MEDICARE, SELFPAY ==
[2022-11-28 10:04] VITALS: BMI 29.9
[2024-07-06] VITALS (7 sets, daily range): BP systolic 98–126; BP diastolic 67–81; PULSE 60–77; RESP 16; TEMP 36.2–36.4; O2SAT 95–100; BMI 30.1
--- NOTE | 2024-07-06 08:55 | PRE.ANES_ITS ---
ASA Classification* ASA Classification ASA Classification: 3 Assessment & Plan Anesthesia* Anesthesia Assessment Anesthesia Assessment: Discussed sedation and/or anesthesia options, risks, benefits, and alternatives with patient/parents/legal guardian/POA. Questions invited. The patient/parents/legal guardian/POA seems to understand and agrees to proceed with anesthesia plan. Reviewed the physical assessment, medical history, allergy history and patient home medications list prior to surgery/procedure/anesthetic and documented any changes. Performed airway and anesthesia risk assessments. Anesthesia Type Anesthesia Type: MAC Anesthesia Focused Assessment* Airway Assessment Mouth opens: >3 cm Mallampati Score: II Focused Labs Anesthesia Preop lab: CBC WBC 8.4 K/mm3 (4.4-11.0) 08/30/22 20:50 RBC 4.66 M/mm3 (4.6-6.2) 08/30/22 20:50 Hgb 13.9 g/dL (13.0-16.5) 08/30/22 20:50 Hct 42.1 % (40-54) 08/30/22 20:50 Plt Count 279 K/mm3 (150-450) 08/30/22 20:50 CHEMISTRY Potassium 3.7 mmol/L (3.5-5.1) 08/30/22 20:50 Sodium 139 mmol/L (136-145) 08/30/22 20:50 BUN 20 mg/dL (7-18) H 08/30/22 20:50 Creatinine 1.20 mg/dL (0.70-1.30) 08/30/22 20:50 Glucose 104 mg/dL (74-106) 08/30/22 20:50 TSH 1.63 uIU/mL (0.358-3.74) 12/19/20 15:14 COAG PT 12.9 SECONDS (11.7-14.9) 08/30/22 20:50 Pre-Assessment Diagnosis/Proposed Procedure Planned Operative Procedure(s): CSCOPE Anesthesia History Anesthesia History - deaf/hard of hearing specialist: Anesthesia History - deaf/hard of hearing specialist Hx Hospitalization No 07/05/24 08:58 Any Problems With Anesthesia No 07/05/24 08:58 Cholinesterase deficiency No 07/05/24 08:58 You/Your Family Experience No 07/05/24 08:58 fever (hyperthermia) with Relationship Recent Exposure to Contagious No 05/11/24 07:45 Disease Does patient have nerve No 07/05/24 08:58 stimulator Patient instructed to have device shut off --Does patient have Pacemaker or ICD? When Was Last Pacemaker Check QUESTION #4 FULL TEXT: You/Your Family Experience fever (hyperthermia) with Anesthesia Last Oral Intake Last Oral intake: Last Oral Intake NPO since Meds taken in AM with sips of water? Meds patient instructed to take am of surgery PONV PONV - deaf/hard of hearing specialist: PONV - deaf/hard of hearing specialist Female No 07/05/24 08:58 HX of Motion Sickness No 07/05/24 08:58 HX of N/V After Surgery No 07/05/24 08:58 Non-Smoker Yes 07/05/24 08:58 Duration of Surgery greater No 07/05/24 08:58 than 60 minutes Number of Risk Factors 1 07/05/24 08:58 PONV Score Low Risk 07/05/24 08:58 Height & Weight Height & Weight: Anesthesia: Height & Weight Height 5 ft 10 in 05/11/24 07:45 Respiratory Assessment Respiratory Assessment - deaf/hard of hearing specialist: Respiratory Tract Infection Hx - deaf/hard of hearing specialist Hx Respiratory Tract Infection No 07/05/24 08:58 STOP Sleep Apnea STOP Sleep Apnea - deaf/hard of hearing specialist: STOP Sleep Apnea - deaf/hard of hearing specialist Hx Hypertension Yes: CONTROLLED WITH MED 07/05/24 08:58 Hx Sleep Apnea Yes 07/05/24 08:58 CPAP Yes 07/05/24 08:58 BIPAP No 07/05/24 08:58 Do you snore loudly (louder than talking or can be heard Do you often feel tired/ fatigued/ sleepy during daytime? Has anyone observed you stop breathing during sleep? STOP Results Positive 07/05/24 08:58 QUESTION #5 FULL TEXT : Do you snore loudly (louder than talking or can be heard through closed doors)? 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 Specify any problems Hx of Preganancy in last 3 N/A 07/05/24 08:58 Months Nurse Filling Out Transfusion DSCHRIBER 07/05/24 08:58 & Questions: Date: 07/05/24 07/05/24 08:58 Time: 09:00 07/05/24 08:58 Patient unable to answer at this time (ie. confused, unrespo /Reproduction History /Reproductive History - deaf/hard of hearing specialist: /Reproductive Hx- deaf/hard of hearing specialist Hx Now Gestational Age (in weeks): EDC: Hx Hx Para Hx Section SAB PFSH Medical History Villous adenoma Alcohol use Thyroid disease Arthritis Prostate disease High cholesterol Back pain History of hiatal hernia Former smoker CPAP (continuous positive airway pressure) dependence Leg cramps History of heart attack Hypertension History of stress test History of echocardiogram Cardiology follow-up encounter Atherosclerosis of coronary artery of [place] heart without angina pectoris NSTEMI, initial episode of care Neuropathy Lightheadedness Uncontrolled hypertension Fatigue Coronary artery calcification seen on CAT scan (12/2016) Insomnia Anxiety Osteoarthritis Hyperlipidemia Obesity Restless legs syndrome (RLS) Obstructive sleep apnea Cervical stenosis of spine BPH (benign prostatic hyperplasia) Essential hypertension Home Medications ?Medication ?Instructions ?Recorded ?Last Taken ?Type carbidopa 25 mg-levodopa 100 mg 1 tab PO QHS RLS 06/21/21 08/24/22 History tablet dutasteride 0.5 mg capsule 0.5 mg PO DAILY 01/30/23 Unknown History aspirin 81 mg chewable tablet 81 mg PO DAILY #90 tabs 12/21/23 07/02/24 Rx clopidogrel 75 mg tablet (Plavix) 75 mg PO DAILY #90 tabs 02/11/24 07/02/24 Rx metoprolol tartrate 50 mg tablet 50 mg PO BID This is a dose 02/11/24 05/11/24 06:30 Rx increase 11/30/23 #180 tabs pravastatin 40 mg tablet 40 mg PO QHS 07/05/24 Unknown History Allergy/AdvReac Type Severity Reaction Status Date / Time codeine AdvReac unknown Verified 07/05/24 08:57 oxycodone (From Percocet) AdvReac unknown Verified 07/05/24 08:57 Family History Sister Arthritis Mother Hypertension Other CVA (cerebral vascular accident) Surgical History Hx of colonoscopy History of cardiac catheterization History of coronary artery stent placement (~08/25/22) History of carpal tunnel surgery History of thyroid surgery Trigger finger History of knee replacement History of herniorrhaphy H/O cervical spine surgery (02/2020) History of transurethral resection of prostate (09/2019) Social History Smoking Status: Former smoker quit date: 08/17/97 how long ago did patient quit smokin years ago alcohol intake: current alcohol intake frequency: a few times a week substance use type: does not use caffeine: Yes Type: coffee Number of servings: 3 Review of Systems (Anesthesia) ROS Narrative System reviewed and no additional complaints, except as documented.
--- NOTE | 2024-07-06 09:45 | COLBX_PTH ---
PATIENT: LUÍS HERNANDEZ LOC: EN U#:[id number] AGE/SX: 79/M ROOM: RE07/06/[address]: Dr. Devin Meeks DO : 1945 BED: DIS: 07/06/2024 SPEC #: [id number] RECD: 07/06/24 11:27 STATUS: GLADYS OSIEL #: [id number] TOM: 07/06/24 09:[address]: Devin Meeks DEPT: SURGICAL PATHOLOGY RECD BY: Alonso Jennings ENTERED: 07/06/24 11:53 SP TYPE: COLON BX MICHAELA DR: Dr. Haroldo Hollis MD Tissues: A - COLON BIOPSY B - COLON BIOPSY Procedures: Surgery Specimen Level IV HEADER OPERATION: Colonoscopy with biopsy, hemostasis and polypectomy PRE-OP DIAGNOSIS: Villous adenoma, history of colonic polyps TISSUE SUBMITTED: A- Hepatic flexure polyp biopsy x3, B- Hepatic flexure polyp MICROSCOPIC DIAGNOSIS A. Hepatic flexure polyp x3, biopsy: Fragments of tubular adenoma. B. Hepatic flexure polyp, polypectomy: Tubulovillous adenoma. KEILY. 07/07/2024 MICROSCOPIC DESCRIPTION Slides are reviewed. GROSS DESCRIPTION A. Received in fixative is one container labeled with the patient's name and designated Hepatic flexure polyp biopsy. The specimen consists of multiple irregular fragments of light larry soft tissue that in aggregate measure 1.0 x 0.6 x 0.1 cm. The specimen is totally submitted in one cassette. B. Received in fixative is one container labeled with the patient's name and designated Hepatic flexure polyp. The specimen consists of a pink-red polyp measuring 0.9 x 0.9 x 0.6 cm. The presumed base is inked. The polyp is serially sectioned and submitted entirely in one cassette. 07/06/2024 TC:1 CPT:33622l6
--- NOTE | 2024-07-06 09:53 | HP.PCM_ITS ---
History and Physical Date of Admission: 07/06/24 LUÍS HERNANDEZ, is a 79 M who presents to the office today for initial consult. Colonoscopy with Dr Crook 05.11.24 Preparation of the colon was fair. One 5 mm polyp in the mid ascending colon. Biopsied. One 20 mm polyp at the hepatic flexure, removed with a cold snare. Polyp resection was incomplete, and the resected tissue was partially retrieved. Tattooed. The examination was otherwise normal on direct and retroflexion views. *BGI established 05.26.24 pt reports that he was referred by Dr Crook following his colonoscopy. Reports that he is feeling well and denies GI symptoms of concern at this time. ROS Const Constitutional: No fatigue, fever(s) or weight change ENT ENT: No difficulty swallowing Gastro GI: No abdominal pain, belching, bloating, change in bowel habits, change in stool character, coffee ground emesis, constipation, cramping, diarrhea, heartburn, difficulty swallowing, feeling full early, excessive flatus, incontinent of stools, Vomiting blood/hematemesis, Blood in stool, loose stools, Black,tarry stools, nausea/dyspepsia, pain with swallowing, vomiting or other Musc Musculoskeletal: Positive for joint pain, back pain, muscle cramps, stiffness, Arthritis, sciatica and restless legs Skin Skin: No yellowing of the eye or itchy eyes Neuro Neurology: Positive for restless legs Psych Psychiatric: No anxiety and No depression Endo Endocrine: No fatigue or weight change Aller/Imm Allergy/Immunologic: No itchy eyes Vinnie/Lymp Hematologic/Lymphatic: Positive for easy bruising; No easy bleeding Exam Const General: cooperative and comfortable Nutritional Appearance: average body habitus and well nourished [facility] Head: normal to inspection Ears: hearing grossly normal bilaterally Nose: external nose normal Face and sinus: normal facial exam Mouth: oral mucosae normal Throat: posterior oropharynx normal Eyes General: appearance normal, both eyes and all related structures Neck Neck: normal visual inspection Chest Chest palpation & inspection: normal inspection of the chest and normal palpation of entire chest wall Resp Effort & Inspection: normal respiratory effort Auscultation: Bilateral: Clear to Auscultation Cardio Palpation: normal PMI Rate: regular rate Rhythm: regular rhythm GI Inspection: normal to inspection Auscultation: normal bowel sounds Percussion: normal to percussion Palpation: no hepatosplenomegaly Skin General: no rashes or lesions noted Neuro General: patient alert Extrem General: normal to inspection Psych Affect: normal affect Assessment and Plan Assessment and Plan (1) Villous adenoma: Status: Acute (2) History of colon polyps: Status: Chronic Comment: Patient is a 78-year-old male who arrives to schedule a surveillance colonoscopy given a history of colon polyps. Plan: He will undergo colonoscopy with removal of flat villous adenoma in the right side of the colon. He was explained alternatives, risk, benefits include not withstanding bleeding, infection, sepsis, perforation, need emergency . He will have an ASA of 3. I have examined the patient and the H&P has been reviewed. There are no clinical changes since date of exam.
--- NOTE | 2024-07-06 10:35 | OP.COLON_ITS ---
Patient Name: Villa Lentz Procedure Date: 07/06/2024 10:02 AM Date of : 1945 Age: 79 Procedure: Colonoscopy Indications: High risk colon cancer surveillance: Personal history of colonic polyps Providers: Devin Meeks DO Referring MD: Devin Meeks DO Medicines: Monitored Anesthesia Care Patient Profile: This is a 79 year old male. Refer to note in patient chart for documentation of history and physical. Last Colonoscopy: 6 months ago. Complications: No immediate complications. Procedure: Pre-Anesthesia Assessment: - Prior to the procedure, a History and Physical was performed, and patient medications and allergies were reviewed. The patient is competent. The risks and benefits of the procedure and the sedation options and risks were discussed with the patient. All questions were answered and informed consent was obtained. Patient identification and proposed procedure were verified by the physician in the pre-procedure area. Mental Status Examination: alert and oriented. Airway Examination: normal oropharyngeal airway and neck mobility. Respiratory Examination: clear to auscultation. Prophylactic Antibiotics: The patient does not require prophylactic antibiotics. Prior Anticoagulants: The patient has taken no anticoagulant or antiplatelet agents except for NSAID medication. ASA Grade Assessment: II - A patient with mild systemic disease. After reviewing the risks and benefits, the patient was deemed in satisfactory condition to undergo the procedure. The anesthesia plan was to use monitored anesthesia care (MAC). Immediately prior to administration of medications, the patient was re-assessed for adequacy to receive sedatives. The heart rate, respiratory rate, oxygen saturations, blood pressure, adequacy of pulmonary ventilation, and response to care were monitored throughout the procedure. The physical status of the patient was re-assessed after the procedure. After I obtained informed consent, the scope was passed under direct vision. Throughout the procedure, the patient's blood pressure, pulse, and oxygen saturations were monitored continuously. The Colonoscope was introduced through the anus and advanced to the cecum, identified by appendiceal orifice and ileocecal valve. The colonoscopy was performed without difficulty. The patient tolerated the procedure well. The quality of the bowel preparation was adequate. The ileocecal valve, appendiceal orifice, and rectum were photographed. Scope In: 10:06:15 AM Scope Withdrawal Time 0 hours 17 minutes 3 seconds Scope Out: 10:29:28 AM Total Procedure Duration Time 0 hours 23 minutes 13 seconds Findings: The perianal and digital rectal examinations were normal. A few small-mouthed diverticula were found in the recto-sigmoid colon. Four sessile polyps were found in the hepatic flexure. The polyps were 7 mm in size. These polyps were removed with a jumbo cold forceps. Resection and retrieval were complete. Verification of patient identification for the specimen was done. Estimated blood loss was minimal. A 15 mm polyp was found in the hepatic flexure. The polyp was sessile. The polyp was removed with a hot snare. Resection and retrieval were complete. Verification of patient identification for the specimen was done. Estimated blood loss was minimal. To close a defect after polypectomy, one hemostatic clip was successfully placed. Clip meeting facilitator: [employer]. There was no bleeding at the end of the procedure. Impression: - Diverticulosis in the recto-sigmoid colon. - Four 7 mm polyps at the hepatic flexure, removed with a jumbo cold forceps. Resected and retrieved. - One 15 mm polyp at the hepatic flexure, removed with a hot snare. Resected and retrieved. Recommendation: - Repeat colonoscopy in 3 years for surveillance. - Continue present medications. Procedure Code(s): --- Professional --- 44622, Colonoscopy, flexible; with removal of tumor(s), polyp(s), or other lesion(s) by snare technique 46571, 59, Colonoscopy, flexible; with biopsy, single or multiple CPT copyright 2021 [employer]. All rights reserved. The codes documented in this report are preliminary and upon account service associate review may be revised to meet current compliance requirements. Devin Meeks DO 07/06/2024 10:34:39 AM This report has been signed electronically. Number of Addenda: 0 Note Initiated On: 07/06/2024 10:02 AM
--- NOTE | 2024-07-06 10:35 | OP.CCLET_ITS ---
07/06/2024 Haroldo Hollis [address] [place] [address] Re : Colonoscopy procedure for Villa Lentz Dear Dr. Hollis This procedure was performed on Saturday, July 06, 2024. My impressions and recommendations are as follows: Impressions : - Diverticulosis in the recto-sigmoid colon. - Four 7 mm polyps at the hepatic flexure, removed with a jumbo cold forceps. Resected and retrieved. - One 15 mm polyp at the hepatic flexure, removed with a hot snare. Resected and retrieved. Recommendations : - Repeat colonoscopy in 3 years for surveillance. - Continue present medications. My findings are described in the full procedure note, which is enclosed. If I can be of further assistance, please feel free to contact me at . Sincerely, Devin Meeks, 07/06/2024 10:34:39 AM This report has been signed electronically.
--- NOTE | 2024-07-06 10:41 | PCM.POST.ANE ---
Anesthesia: Postop Eval I Current Vital Signs Temperature: 97.1 F Pulse Rate: 71 Blood Pressure: 100/67 Respiratory Rate: 16 Pulse Ox: 97 Oxygen Delivery Method: Room Air Assessment Airway patent: Yes Spontaneous unlabored respirations: Yes Mental status: Asleep nausea: No Vomiting: No Anesthesia Complication: No Fluid Hydration Crystalloid volume administer (ml): 40 Total IV fluid infused: 40 Progress Note Anesthesia document: Postop Eval 1 completed: Yes
--- NOTE | 2024-07-06 11:51 | PCM.POSTANE2 ---
Anesthesia Postop Eval I Sum Postop Eval Completion status Anesthesia document: Postop Eval 1 completed: Yes Anesthesia Postop Eval I Summary Anesthesia Postop Eval I Summary: Anesthesia Postop Eval I: Assessment Summary Airway patent Yes 07/06/24 10:41 [email or web address] Spontaneous unlabored Yes 07/06/24 10:41 [email or web address] respirations Mental status Asleep 07/06/24 10:41 [email or web address] nausea No 07/06/24 10:41 [email or web address] Vomiting No 07/06/24 10:41 [email or web address] Anesthesia Postop Eval I: Fluid Summary Crystalloid volume administer 40 07/06/24 10:41 [email or web address] (ml) Colloids volume administered ( ml) Blood Product volume administered (ml) Total IV fluid infused 40 07/06/24 10:41 [email or web address] Anesthesia Postop Eval I: Summary Notes Anesthesia Complication No 07/06/24 10:41 [email or web address] Anesthesia Complication Comment: Post-operative progress note Anesthesia: Postop Eval II Evaluation Mental status: Awake Pain Level: 0 nausea: No Vomiting: No
== END 2024-07-06 11:10 | disposition home or self-care (01) ==
LOC: EN 08:45 → AC 08:47
PROVIDERS: PCP Internal Medicine; Referring Provider Internal Medicine; Visit Provider Internal Medicine Gastroenterology
PROC: 0DJD8ZZ Inspection of Lower Intestinal Tract, Via Natural or Artificial Opening Endoscopic (ICD-10-PCS; CPT 45378; principal; 2024-07-06 09:40)
DX: D37.4 Neoplasm of uncertain behavior of colon (principal); K57.90 Diverticulosis of intestine, part unspecified, without perforation or abscess without bleeding; Z86.0100 Personal history of colon polyps, unspecified; K63.5 Polyp of colon
CPT/HCPCS: 45385; 45380; 88305; A4216; J2405

== ENCOUNTER 2024-08-01 11:00 | Outpatient (RCR) | payer MEDICARE, SELFPAY ==
[2022-11-28 10:04] VITALS: BMI 29.9
--- NOTE | 2024-07-04 10:29 | HP.PTEVAL ---
Patient's Visit Information Visit Information Visit Information: LUÍS HERNANDEZ is a 79 year old M referred to Physical Therapy by Monserrat Stanford PA-C with a diagnosis of DDD thoracic and scoliosis. Date of Evaluation: 07/04/24 Physical Therapist: BETZY May Visit Plan Frequency: 2x /Week Duration: 6 Weeks Plan: 2X/ week for 6 weeks for thoracic strengthening, postural exercises with HEP (wall posture with feet a little away from the wall, green mid rows ) (Pt has a had a neck fusion and an injured L shoulder to watch out for) Subjective Subjective: He has pain all the time and it is like a muscle strain in the middle of his back and under L arm and up the L side of his arm. He went to [facility] a few weeks ago and basically said he had DDD throughout his spine. He had neck fusion 2 years ago. He is getting scoliosis also. He sees Dr Massey and he does shockwave and adjustments but he feels that he needs work on his muscles to hold his neck up and posture. Dr Almonte said that his L RC is weak. He is able to sleep. He is relived somewhat relieved when laying down. He has L arm N&T prob for the last 6-8 months. Pain neck pain: Pain Intensity (Out of 10): 7 Thoracic pain: Pain Intensity (Out of 10): 7 L shoulder pain: Pain Intensity (Out of 10): 7 Objective Objective: Gait: normal gait pattern except neck is flexed with gait: Sitting posture: Rounder shoulders, flexed head, Increase PPT, He struggles to look up UE AROM: Full AROM of B shoulders C-spine AROM: flexion 100%, ext to neutral, Rot B 25%, SB B 5% each direction. 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 Balance/Special Test Scores Oswestry Low Back Score: 12 Goals Goal 1:: I HEP Goal Time Frame: 6-8 Weeks Goal 2:: Improve wall posture (neck was approx 2 inches from the wall at eval). Goal Time Frame: 6-8 Weeks Goal 3:: Sit with upright posture and less FW head with no thoracic pain Goal Time Frame: 6-8 Weeks Rehabilitation Potential Rehabilitation Potential: Good Anticipated Interventions Patient/Client Instruction: Educate patient on: Condition and Plan of Care For the Purpose of:: To decrease pain, To increase ROM, To improve nutrient delivery to tissue, To improve muscle performance and motor function, To improve ability to perform ADL's, To improve health of tissue, To decrease soft tissue restriction and To increase flexibility/ROM Therapeutic Exercise to Include: Strength training, Body mechanics, Postural training, Flexibilty training, Gait and locomotor training, Neuromotor development, Passive ROM, Active ROM and Scapular Strength/Stabilization For the Purpose of:: To decrease pain, To increase ROM, To improve nutrient delivery to tissue, To improve muscle performance and motor function, To improve ability to perform ADL's, To increase tolerance to activity/condition/position, To improve performance and independence with ADL's, To improve gait and locomotor functions, To improve health of tissue, To decrease soft tissue restriction and To increase flexibility/ROM Manual Therapy Techniques to Include: Passive ROM and Soft tissue mobilization For the Purpose of:: To decrease pain, To improve nutrient delivery to tissue, To increase tolerance to activity/condition/position, To improve health of tissue, To decrease soft tissue restriction and To increase flexibility/ROM Text: Thank you for the opportunity to evaluate your patient. For Medicare and Medicare HMO plans, please review the plan of care and approve it. It will need to be FAXED BACK to us at [phone] for Medicare purposes. For Medicare only, by signing this I certify the plan of care. Please let me know if there are questions or concerns regarding this plan of care. Physician Signature: Date:
--- NOTE | 2024-09-19 07:54 | HP.PTDCNRP_ITS ---
Patient Information Patient Information: LUÍS HERNANDEZ was seen in my office for initial evaluation on 07/04/24. The following Plan of Care was established for this patient: POC Established Initial Frequency: 2x /Week Initial Duration: 6 Weeks Anticipated Interventions Patient/Client Instruction: Educate patient on: Condition and Plan of Care For the Purpose of:: To decrease pain, To increase ROM, To improve nutrient delivery to tissue, To improve muscle performance and motor function, To improve ability to perform ADL's, To improve health of tissue, To decrease soft tissue restriction and To increase flexibility/ROM Therapeutic Exercise to Include: Strength training, Body mechanics, Postural training, Flexibilty training, Gait and locomotor training, Neuromotor development, Passive ROM, Active ROM and Scapular Strength/Stabilization For the Purpose of:: To decrease pain, To increase ROM, To improve nutrient d elivery to tissue, To improve muscle performance and motor function, To improve ability to perform ADL's, To increase tolerance to activity/condition/position, To improve performance and independence with ADL's, To improve gait and locomotor functions, To improve health of tissue, To decrease soft tissue restriction and To increase flexibility/ROM Manual Therapy Techniques to Include: Passive ROM and Soft tissue mobilization For the Purpose of:: To decrease pain, To improve nutrient delivery to tissue, To increase tolerance to activity/condition/position, To improve health of tissue, To decrease soft tissue restriction and To increase flexibility/ROM Last Seen Last Seen: This patient was last seen in our office 08/01/24. Pertinent comments regarding their Physical therapy will appear below: VIKRAM PT At this point I will be discontinuing this patient from physical therapy. I would be happy to see this patient again in the future if found appropriate by the physician. Thank you! Farzana Simms, MPT Balance/Gait/Functional tests Balance/Special Test Scores Oswestry Low Back Score: 12
== END 2024-08-01 19:00 | disposition home or self-care (01) ==
LOC: PT 11:00
PROVIDERS: PCP Internal Medicine; Referring Provider Physician Assistant; Visit Provider Physician Assistant
DX: M51.34 Other intervertebral disc degeneration, thoracic region (principal); M41.9 Scoliosis, unspecified
CPT/HCPCS: 97110; 97161

== ENCOUNTER → 2024-09-05 | Outpatient (CLI) | payer MEDICARE, SELFPAY ==
[2022-11-28 10:04] VITALS: BMI 29.9
[2024-09-05 14:58] LABS: PSA,Total- Diagnostic 2.85 ng/mL (0.0-4.0)
== END | disposition home or self-care (01) ==
LOC: LAB 13:23
PROVIDERS: PCP Internal Medicine; Referring Provider Urology; Visit Provider Urology
DX: R97.20 Elevated prostate specific antigen [PSA] (principal)
CPT/HCPCS: 36415; 84153

== ENCOUNTER → 2025-05-16 | Outpatient (CLI) | payer MEDICARE, SELFPAY ==
[2022-11-28 10:04] VITALS: BMI 29.9
--- OUTSIDE RECORDS SUMMARY | 2025-03-20 08:26 | XMS RPT_ITS ---
Author Name Auto Generated Organization [place] Care Team Providers Care Sound Printer Name Role Phone HAROLDO TAYLOR Attending Unavailable HAROLDO TAYLOR Primary [...] Primary Care Unavailable DARY PETTY Attending Unavailable SELF Referring Unavailable HAROLDO TAYLOR Primary Care Unavailable PROBLEMS DATE TYPE CONDITION / CODE ATTENDING STATUS [facility] 08/28/2023 Active Vitamin B12 defi ciency / E53.8(ICD-10) NA Active [facility] 08/28/2023 Active Vitamin D defici ency / E55.9(ICD-10) NA Active [facility] 08/29/2022 Active Hyperlipidemia, unspecified hyperlipidemia type / E78.5(ICD-10) NA Active [facility] 08/29/2022 Active Primary hyperten gilma / I10(ICD-10) NA Active [facility] 03/17/2025 Active Myalgia due to s tatin / M79.10(ICD-10) HAROLDO TAYLOR Active [facility] 03/17/2025 Active Myalgia due to s tatin / T46.6X5A(ICD-10) HAROLDO TAYLOR Active [facility] 09/01/2024 Active Coronary artery disease involving [facility] [place] [place] coronary artery of [facility] [place] [place] heart without angina pectoris / I25.10(ICD-10) HAROLDO TAYLOR Active [facility] 08/28/2023 Active Hyperparathyroid ism (HCC) / E21.3(ICD-10) HAROLDO TAYLOR Active [facility] 12/13/2024 Active Acute right-side d low back pain without sciatica / M54.50(ICD-10) DARY PETTY Active [facility] 12/13/2024 Active Fall on steps, i nitial encounter / W10.8XXA(ICD-10) DARY PETTY [facility] 08/22/2024 Active Urinary tract in fection without hematuria, site unspecified / N39.0(ICD-10) NA [facility] 07/30/2024 Active Urinary tract in fection with hematuria, site unspecified / N39.0(ICD-10) HAROLDO TAYLOR [facility] 07/30/2024 Active Urinary tract in fection with hematuria, site unspecified / R31.9(ICD-10) HAROLDO TAYLOR [facility] PROCEDURES No Procedure Records Found RESULTS PROGRESS Observed: 05/12/2025 9:45 AM Status: COMPLETED Source: [facility] HNO ID: [id number] Author: ?, ?, ? Service: ? Author Type: ? Type: Progress Notes Filed: 05/12/2025 09:47 Note Text: POPULATION HEALTH NAVIGATION OUTREACH Action/FYI Patient outreach for HM due; flu Sent mcm to schedule Reason for Outreach Care Gap/HCC or Scheduling Wellness Visits Care Gaps due: Flu Vaccine Patient Contacted: Unable or unnecessary to reach patient: Cheng message sent Navigation Signature: Lexie Max [facility] May 12, 2025 9:45 AM CNPTOUTREACH Observed: 05/12/2025 12:00 AM Status: COMPLETED Source: [facility] Patient Outreach (NETNAV) LUÍS HERNANDEZ ([id number]) 1945 M EXC Date Time Provider Department 05/12/25 HAROLDO TAYLOR During your visit today, we recorded the following information about you: Lexie Vail 05/12/2025 9:47 AM Signed POPULATION HEALTH NAVIGATION OUTREACH Action/FYI Patient outreach for HM due; flu Sent mcm to schedule Reason for Outreach Care Gap/HCC or Scheduling Wellness Visits Care Gaps due: Flu Vaccine Patient Contacted: Unable or unnecessary to reach patient: Kaulijacob message sent Navigation Signature: Lexie Nelson May 12, 2025 9:45 AM Allergies As of Date: 05/12/2025 Noted Allergy Reaction PERCOCET (OXYCODONE-ACETAMINOPHEN)09/11/2011 5 - Intolerance Comments: Anxiety and slurred words CODEINE 07/22/2005 2 - Rash Comments: itch, nightmares VICODIN (HYDROCODONE-ACETAMINOPHE*02/22/2009 2 - Rash 9 - Itching Date Reviewed: 03/17/2025 Reviewed by: Nikki Jacques LPN - Fully Assessed Reason for Visit: Population Health Navigation Outreach [3910] Cmt: Papo Stout Prescriptions as of 05/12/2025 - ezetimibe (ZETIA) 10 mg tablet Take 1 tablet by mouth once daily. - clopidogrel (PLAVIX) 75 mg tablet Take 1 tablet by mouth once daily. Per cardiology. - metoprolol tartrate, short acting, (LOPRESSOR) 50 mg tablet Take 1 tablet by mouth two times a day. Per Cardiology. - cyanocobalamin 1,000 mcg/mL Inject 1 mL intramuscularly every 2 weeks. - carbidopa-levodopa (SINEMET) 25-100 mg per tablet Take one(1) tablet daily at bedtime. - Syringe with Needle, Disp, (SYRINGE 3CC/25GX1) 3 mL 25 gauge x 1 For use with B12 injections - dutasteride (AVODART) 0.5 mg capsule Take 1 capsule by mouth once daily. UROLOGY. - magnesium oxide (MAG-OX) 400 mg (241.3 mg magnesium) tablet Take 400 mg by mouth once daily. - COMPOUNDED PRESCRIPTION Prostaglandin 30mcg/ml injectable, bimix papaverine/phentolamine 30mg/0.5mg/ml injectable for penile intracavernosal inj for ED - Melatonin 5 mg cap Take by mouth. - CALCIUM CARBONATE/VITAMIN D3 (VITAMIN D-3 ORAL) Take by mouth. - Insulin Syringe-Needle U-100 1 mL 31 gauge x 16 For penile intracavernosal injections for ED Problem List As Of Date 05/12/2025 Noted Resolved BPH W/O URINARY OBS/LUTS [N40.0] 07/22/2005 06/09/2007 PSA elevation [R97.20] 09/07/2006 Hypertrophy of prostate with urinary obstructio*06/09/2007 12/17/2017 Bladder neck obstruction [N32.0] 06/09/2007 07/29/2022 Chronic prostatitis [N41.1] 04/30/2009 07/29/2022 Knee pain [M25.569] 01/09/2011 12/17/2017 Umbilical hernia without mention of obstruction*06/16/2012 12/17/2017 Erectile dysfunction due to arterial insufficie*03/17/2018 10/29/2022 Urine retention [R33.9] 08/19/2019 07/29/2022 OLIVA on CPAP [G47.33] 07/29/2022 Chronic neck pain [M54.2, G89.29] 07/29/2022 Restless leg syndrome [G25.81] 07/29/2022 NSTEMI (non-ST elevated myocardial infarction) *08/29/2022 10/29/2022 Primary hypertension [I10] 08/29/2022 Hyperlipidemia [E78.5] 08/29/2022 Stented coronary artery (proximal RCA) [Z95.5] 08/29/2022 Benign prostatic hyperplasia [N40.0] 02/25/2023 Diagnosed: 02/25/2023 Hyperparathyroidism (HCC) [E21.3] 08/28/2023 Vitamin D deficiency [E55.9] 08/28/2023 Vitamin B12 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] 08/28/2023 Obesity, Class I, BMI 30-34.9 [E66.811] 09/01/20[address] disease involving [facility] michael ira jones*09/01/2024 Colon polyposis [K63.5] 05/11/2024 Myalgia due to statin [M79.10, T46.6X5A] 03/17/2025 Encounter Status:Closed by LEXIE VAIL on 05/12/25 PROGRESS Observed: 04/05/2025 2:56 PM Status: COMPLETED Source: [facility] HNO ID: [id number] Author: LATA CASTILLO CPhT Service: ? Author Type: Sugar Refiner Type: Progress Notes Filed: 04/05/2025 14:58 Note Text: Patient is identified through a medication adherence outreach initiative based on pharmacy claims data from: [employer] (PICA) Medication Adherence Category: Statins First Review Attribution Status: Correct attribution Medication(s) Pravastatin 20 mg Last Filled 01/16/25 for 90 DS, Next fill due 04/15/25 Medication Status per portal/Epic Reconcile Dispense: Not filled Medication Status per Profile Review: Provider discontinued Is medication on Epic med list? No, Call pharmacy to discontinue prescription. Patient/provider appropriate for outreach? No Reason patient/provider not appropriate for outreach:Patient filled on time / no adherence concerns to be addressed Per provider encounter 03/17/25 He was only on Zetia from Dr. Hooper, as pravastatin gave him muscle aches Lata Castillo CPhT Value Based Care Pharmacy Team CNPTOUTREACH Observed: 04/05/2025 12:00 AM Status: COMPLETED Source: [facility] Patient Outreach (PHPOHE) LUÍS HERNANDEZ ([id number]) 1945 M EXC Date Time Provider Department 04/05/25 HAROLDO TAYLOR PHPOHE During your visit today, we recorded the following information about you: Lata Castillo CPhT 04/05/2025 2:58 PM Signed Patient is identified through a medication adherence outreach initiative based on pharmacy claims data from: [employer] ([employer]) Medication Adherence Category: Statins First Review Attribution Status: Correct attribution Medication(s) Pravastatin 20 mg Last Filled 01/16/25 for 90 DS, Next fill due 04/15/25 Medication Status per portal/Epic Reconcile Dispense: Not filled Medication Status per Profile Review: Provider discontinued Is medication on Epic med list? No, Call pharmacy to discontinue prescription. Patient/provider appropriate for outreach? No Reason patient/provider not appropriate for outreach:Patient filled on time / no adherence concerns to be addressed Per provider encounter 03/17/25 He was only on Zetia from Dr. Hooper, as pravastatin gave him muscle aches Lata Castillo CPhT Value Based Care Pharmacy Team Allergies As of Date: 04/05/2025 Noted Allergy Reaction PERCOCET (OXYCODONE-ACETAMINOPHEN)09/11/2011 5 - Intolerance Comments: Anxiety and slurred words CODEINE 07/22/2005 2 - Rash Comments: itch, nightmares VICODIN (HYDROCODONE-ACETAMINOPHE*02/22/2009 2 - Rash 9 - Itching Date Reviewed: 03/17/2025 Reviewed by: Nikki Jacques LPN - Fully Assessed Reason for Visit: Allied Health Visit [5] Cmt: Medication Adherence Outreach Prescriptions as of 04/05/2025 - ezetimibe (ZETIA) 10 mg tablet Take 1 tablet by mouth once daily. - clopidogrel (PLAVIX) 75 mg tablet Take 1 tablet by mouth once daily. Per cardiology. - metoprolol tartrate, short acting, (LOPRESSOR) 50 mg tablet Take 1 tablet by mouth two times a day. Per Cardiology. - cyanocobalamin 1,000 mcg/mL Inject 1 mL intramuscularly every 2 weeks. - carbidopa-levodopa (SINEMET) 25-100 mg per tablet Take one(1) tablet daily at bedtime. - Syringe with Needle, Disp, (SYRINGE 3CC/25GX1) 3 mL 25 gauge x 1 For use with B12 injections - dutasteride (AVODART) 0.5 mg capsule Take 1 capsule by mouth once daily. UROLOGY. - magnesium oxide (MAG-OX) 400 mg (241.3 mg magnesium) tablet Take 400 mg by mouth once daily. - COMPOUNDED PRESCRIPTION Prostaglandin 30mcg/ml injectable, bimix papaverine/phentolamine 30mg/0.5mg/ml injectable for penile intracavernosal inj for ED - Melatonin 5 mg cap Take by mouth. - CALCIUM CARBONATE/VITAMIN D3 (VITAMIN D-3 ORAL) Take by mouth. - Insulin Syringe-Needle U-100 1 mL 31 gauge x /16 For penile intracavernosal injections for ED Problem List As Of Date 04/05/2025 Noted Resolved BPH W/O URINARY OBS/LUTS [N40.0] 07/22/2005 06/09/2007 PSA elevation [R97.20] 09/07/2006 Hypertrophy of prostate with urinary obstructio*06/09/2007 12/17/2017 Bladder neck obstruction [N32.0] 06/09/2007 07/29/2022 Chronic prostatitis [N41.1] 04/30/2009 07/29/2022 Knee pain [M25.569] 01/09/2011 12/17/2017 Umbilical hernia without mention of obstruction*06/16/2012 12/17/2017 Erectile dysfunction due to arterial insufficie*03/17/2018 10/29/2022 Urine retention [R33.9] 08/19/2019 07/29/2022 OLIVA on CPAP [G47.33] 07/29/2022 Chronic neck pain [M54.2, G89.29] 07/29/2022 Restless leg syndrome [G25.81] 07/29/2022 NSTEMI (non-ST elevated myocardial infarction) *08/29/2022 10/29/2022 Primary hypertension [I10] 08/29/2022 Hyperlipidemia [E78.5] 08/29/2022 Stented coronary artery (proximal RCA) [Z95.5] 08/29/2022 Benign prostatic hyperplasia [N40.0] 02/25/2023 Diagnosed: 02/25/2023 Hyperparathyroidism (HCC) [E21.3] 08/28/2023 Vitamin D deficiency [E55.9] 08/28/2023 Vitamin B12 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] 08/28/2023 Obesity, Class I, BMI 30-34.9 [E66.811] 09/01/20[address] disease involving [facility] michael ira jones*09/01/2024 Colon polyposis [K63.5] 05/11/2024 Myalgia due to statin [M79.10, T46.6X5A] 03/17/2025 Encounter Status:Closed by LATA CASTILLO on 04/05/25 COMP METAB 2000 PNL SERPL Collected: 8:47 AM Status: F Source: [facility] Order Comment: Specimen Type : BLOOD SPECIMEN Ordering Facility: [facility] Address: [address] [place] [address] TYPE CODE TESTS RESULT OUT OF RANGE REFERENCE UNITS LAB 2885-2(LOINC) Prot SerPl-mCnc 7.0 6.3-8.0 g/dL LAB 1751-7(LOINC) Albumin SerPl-mCnc 4.2 3.9-4.9 g/dL LAB 63934-7(LOINC) Calcium SerPl-mCnc 9.1 8.5-10.2 mg/dL LAB 1975-2(LOINC) Bilirub SerPl-mCnc 0.4 0.2-1.3 mg/dL LAB 6768-6(LOINC) ALP SerPl-cCnc 76 38-113 U/L LAB 1920-8(LOINC) AST SerPl-cCnc 25 14-40 U/L LAB 1742-6(LOINC) ALT SerPl-cCnc 10 10-54 U/L LAB 2345-7(LOINC) Glucose SerPl-mCnc 108 High 74-99 mg/dL Result Comment: The [place] Diabetes Association (ADA) provides guidance for cutoff values for fasting glucose and random glucose. The ADA defines fasting as no caloric intake for at least 8 hours. Fasting plasma glucose results between 100 to 125 mg/dL indicate increased risk for diabetes (prediabetes). Fasting plasma glucose results greater than or equal to 126 mg/dL meet the criteria for diagnosis of diabetes. In the absence of unequivocal hyperglycemia, results should be confirmed by repeat testing. In a patient with classic symptoms of hyperglycemia or hyperglycemic crisis, random plasma glucose results greater than or equal to 200 mg/dL meet the criteria for diagnosis of diabetes. Reference: Standards of Medical Care in Diabetes 2016, [place] [employer] Association. Diabetes Care. 2016.39(Suppl 1). LAB 3094-0(LOINC) BUN SerPl-mCnc 18 9-24 mg/dL LAB 2160-0(LOINC) Creat SerPl-mCnc 1.09 0.73-1.22 mg/dL LAB 2951-2(LOINC) Sodium SerPl-sCnc 138 136-144 mmol/L LAB 2823-3(LOINC) Potassium SerPl-sCnc 5.2 High 3.7-5.1 mmol/L LAB 2075-0(LOINC) Chloride SerPl-sCnc 103 98-107 mmol/L LAB 202-9(LOINC) CO2 SerPl-sCnc 26 22-30 mmol/L LAB 66200-2(LOINC) Anion Gap SerPl-sCnc 9 8-15 mmol/L LAB 26916-8(LOINC) eGFRcr SerPlBld CKD-EPI 2020 69 >=60 mL/min/1. 73m??? Result Comment: Estimated Gl omerular Filtration Rate (eGFR) is calculated using the 2020 CKD-EPI creatinine equation. This equation utilizes serum creatinine, sex, and age as parameters. The creatinine assay has traceable calibration to isotope dilution-mass spectrometry. Refer to KDIGO guidelines for clinical interpretation. In patients with unstable renal function, e.g. those with acute kidney injury, the eGFR may not accurately reflect actual GFR. Performed By: #### 2132-9, 2 4331-1, 24738-1 #### [facility] CLIA [id number] [address] [place] [address] [place] LIPID 1996 PNL SERPL Collected: 025 8:47 AM Status: F Source: [facility] Order Comment: Specimen Type : BLOOD SPECIMEN Ordering Facility: [facility] Address: [address] [place] [address] TYPE CODE TESTS RESULT OUT OF RANGE REFERENCE UNITS LAB 2093-3(LOINC) Cholest SerPl-mCnc 153 <200 mg/dL Result Comment: <200 mg/dL, Desirable 200-239 mg/dL, Borderline high >239 mg/dL, High LAB 2571-8(LOINC) Trigl SerPl-mCnc 112 <150 mg/dL Result Comment: <150 mg/dL, Normal 150-199 mg/dL, Borderline high 200-499 mg/dL, High >499 mg/dL, Very high LAB 2085-9(LOINC) HDLc SerPl-mCnc 42 >39 mg/dL Result Comment: 40-59 mg/dL, Acceptable >59 mg/dL, High: Negative risk factor for coronary heart disease <40 mg/dL, Low: Positive risk factor for coronary heart disease LAB 2089-1(LOINC) LDLc SerPl-mCnc 91 <100 mg/dL Result Comment: <100 mg/dL, Optimal 100-129 mg/dL, Near optimal/above optimal 130-159 mg/dL, Borderline high 160-189 mg/dL, High >189 mg/dL, Very high Secondary prevention optimal LDL Cholesterol levels are recommended to be <70 mg/dL LDL cholesterol is calculated using the Tidwell-NIH equation. LAB 22554-9(LOINC) NonHDLc SerPl-mCnc 111 <130 mg/dL Result Comment: <130 mg/dL, Optimal 130-159 mg/dL, Near optimal/above optimal 160-189 mg/dL, Borderline high 190-219 mg/dL, High >219 mg/dL, Very high Secondary prevention optimal non HDL Cholesterol levels are recommended to be <100 mg/dL LAB 90911-0(LOINC) VLDLc SerPl Calc-mCnc 18 <30 mg/dL LAB 9830-1(LOINC) Cholest/HDLc SerPl 3.64 <5.10 LAB 45556-5(LOINC) LDLc/HDLc SerPl 2.17 <2.54 Result Comment: Reference: 1. National Cholesterol Education Program ATP III Guideline At-A-Glance Quick Desk Reference: National Heart, Lung, and Blood [place]. National Institutes of Health. 2001: NIH Publication No. 01-3305. 2. An International Atherosclerosis Society position paper: global recommendations for the management of dyslipidemia: executive summary, Atherosclerosis. 2014: 232(2):410-413. LAB FT FASTING TIME 12 hrs Performed By: #### 2132-9, 2 4331-1, 34605-2 #### [facility] CLIA [id number] [address] [place] [address] OF [facility] VIT B12 SERPL-MCNC Collected: 03/20/2025 8:47 AM Sta tus: F Source: [facility] Order Comment: Specimen Type : BLOOD SPECIMEN Ordering Facility: [facility] Address: [address] [place] [address] TYPE CODE TESTS RESULT OUT OF RANGE REFERENCE UNITS LAB 2132-9([facility]) Vit B12 SerPl-mCnc 2022 091-4767 pg/mL Performed By: #### 2132-9, 2 4331-1, 37729-4 #### [facility] CLIA [id number] [address] [place] [address] CBC PNL BLD AUTO Collected: 8:47 AM Status: F Source: [facility] Order Comment: Specimen Type : BLOOD SPECIMEN Ordering Facility: [facility] Address: [address] [place] [address] TYPE CODE TESTS RESULT OUT OF RANGE REFERENCE UNITS LAB 6690-2([facility]) WBC # Bld Auto 7.31 3.70-11.00 k/uL LAB 789-8([facility]) RBC # Bld Auto 4.61 4.20-6.00 m/uL LAB 718-7([facility]) Hgb Bld-mCnc 14.0 13.0-17.0 g/dL LAB 4544-3([facility]) Hct VFr Bld Auto 43.0 39.0-51.0 % LAB 787-2([facility]) MCV RBC Auto 93.3 80.0-100.0 fL LAB 785-6([facility]) MCH RBC Qn Auto 30.4 26.0-34.0 pg LAB 786-4([facility]) MCHC RBC Auto-mCnc 32.6 30.5-36.0 g/dL LAB 78693-2([facility]) RDW RBC-Rto 13.4 11.5-15.0 % LAB 777-3([facility]) Platelet # Bld Auto 266 150-400 k/uL LAB 21183-3([facility]) PMV Bld Auto 9.6 9.0-12.7 fL LAB 771-6([facility]) nRBC # Bld Auto <0.01 <0.01 k/uL Performed By: #### 73126-2 # ### [facility] CLIA [id number] [address] [place] [address] 25([place])D3 SERPL-MCNC Collected: 03/20/2025 8:[address] atus: F Source: [facility] Order Comment: Specimen Type : BLOOD SPECIMEN Ordering Facility: [facility] Address: [address] [place] [address] TYPE CODE TESTS RESULT OUT OF RANGE REFERENCE UNITS LAB 1988-10(LOINC) 25(OH)D3 SerPl-mCnc 33.8 31.0-80.0 ng/mL Performed By: #### 1988-10 ## ## [facility] CLIA [id number] [address] [place] [address] PROGRESS Observed: 03/17/2025 10:43 AM Status: COMPLETED Source: [facility] HNO ID: [id number] Author: HAROLDO TAYLOR MD Service: ? Author Type: Physician Type: Progress Notes Filed: 03/17/2025 11:12 Note Text: Subjective Luís Hernandez is a 80 year old male. HPI He was doing well, and had no concerns. He stopped gabapentin. Neck pain was minor. He was only on Zetia from Dr. Hooper, as pravastatin gave him muscle aches. ACTIVE PROBLEM LIST Psa Elevation Oliva On Cpap Chronic Neck Pain Restless Leg Syndrome Primary Hypertension Hyperlipidemia Stented coronary artery (proximal RCA) Benign Prostatic Hyperplasia Hyperparathyroidism (Hcc) Vitamin D Deficiency Vitamin B12 Deficiency Obesity, Class I, Bmi 30-34.9 Coronary Artery Disease Involving [place] Coronary Artery of [place] Heart Without Angina Pectoris Colon Polyposis Social History Tobacco Use Smoking status: Former Current packs/day: 1.00 Types: Cigarettes Smokeless tobacco: Never Tobacco comments: Quit over 30 years ago Vaping Use Vaping status: Never Used Substance Use Topics Alcohol use: Yes Alcohol/week: 3.0 standard drinks of alcohol Types: 3 Standard drinks or equivalent per week Drug use: Never Current Outpatient Medications Medication Sig ezetimibe (ZETIA) 10 mg tablet Take 1 tablet by mouth once daily. clopidogrel (PLAVIX) 75 mg tablet Take 1 tablet by mouth once daily. Per cardiology. metoprolol tartrate, short acting, (LOPRESSOR) 50 mg tablet Take 1 tablet by mouth two times a day. Per Cardiology. cyanocobalamin 1,000 mcg/mL Inject 1 mL intramuscularly every 2 weeks. carbidopa-levodopa (SINEMET) 25-100 mg per tablet Take one(1) tablet daily at bedtime. Syringe with Needle, Disp, (SYRINGE 3CC/25GX1) 3 mL 25 gauge x 1 For use with B12 injections dutasteride (AVODART) 0.5 mg capsule Take 1 capsule by mouth once daily. UROLOGY. magnesium oxide (MAG-OX) 400 mg (241.3 mg [...] No current facility-administered medications for this visit. Review of Systems Constitutional: Negative for fatigue and unexpected weight change. Respiratory: Negative for cough and shortness of breath. Cardiovascular: Negative for chest pain, palpitations and leg swelling. Gastrointestinal: Negative for abdominal pain. Genitourinary: Negative for difficulty urinating. Musculoskeletal: Negative for myalgias. Neurological: Negative for dizziness and headaches. Objective BP 116/68 (BP Site: Left Arm, BP Position: Sitting, BP Cuff Size: Large Adult) Pulse 63 Resp 14 Ht 175.3 cm (5' 9) Wt 100.2 kg (220 lb 14.4 oz) SpO2 94% BMI 32.62 kg/m? Physical Exam Constitutional: General: He is not in acute distress. HENT: Head: Normocephalic. Nose: No congestion. Eyes: Conjunctiva/sclera: Conjunctivae normal. Cardiovascular: Rate and Rhythm: Normal rate and regular rhythm. Pulses: Normal pulses. Heart sounds: S1 normal and S2 normal. No murmur heard. No gallop. Pulmonary: Breath sounds: Normal breath sounds. Abdominal: Palpations: Abdomen is soft. Tenderness: There is no abdominal tenderness. Musculoskeletal: Right lower leg: No edema. Left lower leg: No edema. Neurological: Mental Status: He is alert. Gait: Gait normal. ASSESSMENT/PLAN: 1. Primary hypertension - ICD9: 401.9, ICD10: I10 (primary diagnosis) - Controlled - Continue current medications - COMPLETE BLOOD COUNT 2. Hyperlipidemia, unspecified hyperlipidemia type - ICD9: 272.4, ICD10: E78.5 - Control undetermined, due for labs - Continue current medications - Counseled on healthy diet and regular exercise - COMPREHENSIVE METABOLIC PANEL - LIPID PANEL, FASTING 3. Vitamin B12 deficiency - ICD9: 266.2, ICD10: E53.8 - Control undetermined. - VITAMIN B12 4. Hyperparathyroidism (HCC) - ICD9: 252.00, ICD10: E21.3 - Control undetermined. 5. Vitamin D deficiency - ICD9: 268.9, ICD10: E55.9 - Control undetermined. - VITAMIN D 25 HYDROXY 6. Coronary artery disease involving [facility] michael ira coronary artery of [facility] michael ir[place] heart without angina pectoris - ICD9: 414.01, ICD10: I25.10 - Stable. 7. Myalgia due to statin - ICD9: 729.1, E942.2, ICD10: M79.10, T46.6X5A - Statins not tolerated: Haroldo Taylor MD CNOV Observed: 03/17/2025 10:40 AM Status: COMPLETED Source: [facility] Office Visit (INTMWS) LEONLUÍS PARKER Shirley ([id number]) 1945 M EXC Date Time Provider Department 03/17/25 10:40 AM HAROLDO TAYLOR INTMWS During your visit today, we recorded the following information about you: Pulse Respiration Blood pressure Weight 63/minute 14/minute 116/68 100.2 kg Height 1.753 m Haroldo Taylor MD 03/17/2025 11:12 AM Signed Subjective Luís Hernandez is a 80 year old male. HPI He was doing well, and had no concerns. He stopped gabapentin. Neck pain was minor. He was only on Zetia from Dr. Hooper, as pravastatin gave him muscle aches. ACTIVE PROBLEM LIST Psa Elevation Oliva On Cpap Chronic Neck Pain Restless Leg Syndrome Primary Hypertension Hyperlipidemia Stented coronary artery (proximal RCA) Benign Prostatic Hyperplasia Hyperparathyroidism (Hcc) Vitamin D Deficiency Vitamin B12 Deficiency Obesity, Class I, Bmi 30-34.9 Coronary Artery Disease Involving [place] Coronary Artery of [place] Heart Without Angina Pectoris Colon Polyposis Social History Tobacco Use Smoking status: Former Current packs/day: 1.00 Types: Cigarettes Smokeless tobacco: Never Tobacco comments: Quit over 30 years ago Vaping Use Vaping status: Never Used Substance Use Topics Alcohol use: Yes Alcohol/week: 3.0 standard drinks of alcohol Types: 3 Standard drinks or equivalent per week Drug use: Never Current Outpatient Medications Medication Sig ezetimibe (ZETIA) 10 mg tablet Take 1 tablet by mouth once daily. clopidogrel (PLAVIX) 75 mg tablet Take 1 tablet by mouth once daily. Per cardiology. metoprolol tartrate, short acting, (LOPRESSOR) 50 mg tablet Take 1 tablet by mouth two times a day. Per Cardiology. cyanocobalamin 1,000 mcg/mL Inject 1 mL intramuscularly every 2 weeks. carbidopa-levodopa (SINEMET) 25-100 mg per tablet Take one(1) tablet daily at bedtime. Syringe with Needle, Disp, (SYRINGE 3CC/25GX1) 3 mL 25 gauge x 1 For use with B12 injections dutasteride (AVODART) 0.5 mg capsule Take 1 capsule by mouth once daily. UROLOGY. magnesium oxide (MAG-OX) 400 mg (241.3 mg [...] No current facility-administered medications for this visit. Review of Systems Constitutional: Negative for fatigue and unexpected weight change. Respiratory: Negative for cough and shortness of breath. Cardiovascular: Negative for chest pain, palpitations and leg swelling. Gastrointestinal: Negative for abdominal pain. Genitourinary: Negative for difficulty urinating. Musculoskeletal: Negative for myalgias. Neurological: Negative for dizziness and headaches. Objective BP 116/68 (BP Site: Left Arm, BP Position: Sitting, BP Cuff Size: Large Adult) Pulse 63 Resp 14 Ht 175.3 cm (5' 9) Wt 100.2 kg (220 lb 14.4 oz) SpO2 94% BMI 32.62 kg/m? Physical Exam Constitutional: General: He is not in acute distress. HENT: Head: Normocephalic. Nose: No congestion. Eyes: Conjunctiva/sclera: Conjunctivae normal. Cardiovascular: Rate and Rhythm: Normal rate and regular rhythm. Pulses: Normal pulses. Heart sounds: S1 normal and S2 normal. No murmur heard. No gallop. Pulmonary: Breath sounds: Normal breath sounds. Abdominal: Palpations: Abdomen is soft. Tenderness: There is no abdominal tenderness. Musculoskeletal: Right lower leg: No edema. Left lower leg: No edema. Neurological: Mental Status: He is alert. Gait: Gait normal. ASSESSMENT/PLAN: 1. Primary hypertension - ICD9: 401.9, ICD10: I10 (primary diagnosis) - Controlled - Continue current medications - COMPLETE BLOOD COUNT 2. Hyperlipidemia, unspecified hyperlipidemia type - ICD9: 272.4, ICD10: E78.5 - Control undetermined, due for labs - Continue current medications - Counseled on healthy diet and regular exercise - COMPREHENSIVE METABOLIC PANEL - LIPID PANEL, FASTING 3. Vitamin B12 deficiency - ICD9: 266.2, ICD10: E53.8 - Control undetermined. - VITAMIN B12 4. Hyperparathyroidism (HCC) - ICD9: 252.00, ICD10: E21.3 - Control undetermined. 5. Vitamin D deficiency - ICD9: 268.9, ICD10: E55.9 - Control undetermined. - VITAMIN D 25 HYDROXY 6. Coronary artery disease involving [facility] [place] [place] coronary artery of [facility] [place] [place] heart without angina pectoris - ICD9: 414.01, ICD10: I25.10 - Stable. 7. Myalgia due to statin - ICD9: 729.1, E942.2, ICD10: M79.10, T46.6X5A - Statins not tolerated: MD Bunny Jolley Victor H, MD 03/17/2025 11:05 AM Signed FASTING BLOOD WORK TOMORROW MORNING. Allergies As of Date: 03/17/2025 Noted Allergy Reaction PERCOCET (OXYCODONE-ACETAMINOPHEN)09/11/2011 5 - Intolerance Comments: Anxiety and slurred words CODEINE 07/22/2005 2 - Rash Comments: itch, nightmares VICODIN (HYDROCODONE-ACETAMINOPHE*02/22/2009 2 - Rash 9 - Itching Date Reviewed: 03/17/2025 Reviewed by: Nikki Jacques LPN - Fully Assessed Reason for Visit: F/U 6 months [1177] Primary Visit Diagnosis:Primary hypertension [I10] Other Visit Diagnoses:Hyperlipidemia, unspecified hyperlipidemia type [E78.5] Vitamin B12 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] Hyperparathyroidism (HCC) [E21.3] Vitamin D deficiency [E55.9] Coronary artery disease involving [facility] ir[place] coronary artery of [facility] [place] [place] heart without angina pectoris [I25.10] Myalgia due to statin [M79.10, T46.6X5A] Order(s):COMPLETE BLOOD COUNT [SQCBC] Order #: [id number] FUTURE COMPREHENSIVE METABOLIC PANEL [SQCMP] Order #: [id number] FUTURE LIPID PANEL, FASTING [SQLIPB] Order #: [id number] FUTURE VITAMIN B12 [SQB12] Order #: [id number] FUTURE VITAMIN D 25 HYDROXY [SQVITD] Order #: [id number] FUTURE Prescriptions as of 03/17/2025 - ezetimibe (ZETIA) 10 mg tablet Take 1 tablet by mouth once daily. - clopidogrel (PLAVIX) 75 mg tablet Take 1 tablet by mouth once daily. Per cardiology. - metoprolol tartrate, short acting, (LOPRESSOR) 50 mg tablet Take 1 tablet by mouth two times a day. Per Cardiology. - cyanocobalamin 1,000 mcg/mL Inject 1 mL intramuscularly every 2 weeks. - carbidopa-levodopa (SINEMET) 25-100 mg per tablet Take one(1) tablet daily at bedtime. - Syringe with Needle, Disp, (SYRINGE 3CC/25GX1) 3 mL 25 gauge x 1 For use with B12 injections - dutasteride (AVODART) 0.5 mg capsule Take 1 capsule by mouth once daily. UROLOGY. - magnesium oxide (MAG-OX) 400 mg (241.3 mg magnesium) tablet Take 400 mg by mouth once daily. - COMPOUNDED PRESCRIPTION Prostaglandin 30mcg/ml injectable, bimix papaverine/phentolamine 30mg/0.5mg/ml injectable for penile intracavernosal inj for ED - Melatonin 5 mg cap Take by mouth. - CALCIUM CARBONATE/VITAMIN D3 (VITAMIN D-3 ORAL) Take by mouth. - Insulin Syringe-Needle U-100 1 mL 31 gauge x /16 For penile intracavernosal injections for ED Problem List As Of Date 03/17/2025 Noted Resolved BPH W/O URINARY OBS/LUTS [N40.0] 07/22/2005 06/09/2007 PSA elevation [R97.20] 09/07/2006 Hypertrophy of prostate with urinary obstructio*06/09/2007 12/17/2017 Bladder neck obstruction [N32.0] 06/09/2007 07/29/2022 Chronic prostatitis [N41.1] 04/30/2009 07/29/2022 Knee pain [M25.569] 01/09/2011 12/17/2017 Umbilical hernia without mention of obstruction*06/16/2012 12/17/2017 Erectile dysfunction due to arterial insufficie*03/17/2018 10/29/2022 Urine retention [R33.9] 08/19/2019 07/29/2022 OLIVA on CPAP [G47.33] 07/29/2022 Chronic neck pain [M54.2, G89.29] 07/29/2022 Restless leg syndrome [G25.81] 07/29/2022 NSTEMI (non-ST elevated myocardial infarction) *08/29/2022 10/29/2022 Primary hypertension [I10] 08/29/2022 Hyperlipidemia [E78.5] 08/29/2022 Stented coronary artery (proximal RCA) [Z95.5] 08/29/2022 Benign prostatic hyperplasia [N40.0] 02/25/2023 Diagnosed: 02/25/2023 Hyperparathyroidism (HCC) [E21.3] 08/28/2023 Vitamin D deficiency [E55.9] 08/28/2023 Vitamin B12 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] 08/28/2023 Obesity, Class I, BMI 30-34.9 [E66.811] 09/01/20[address] disease involving [facility] [facility] ira jones*09/01/2024 Colon polyposis [K63.5] 05/11/2024 Myalgia due to statin [M79.10, T46.6X5A] 03/17/2025 Other instructions from your clinician: FASTING BLOOD WORK TOMORROW MORNING. Medications Discontinued During This Encounter Prescriptions - gabapentin (NEURONTIN) 300 mg capsule (Discontinued) Reported on 03/17/2025 - pravastatin (PRAVACHOL) 40 mg tablet (Discontinued) Reported on 03/17/2025 Level of Service: OFFICE/OUTPATIENT ESTABLISHED MOD [facility] 30 MIN [52711] Additional E/M codes: VISIT CPLX INHERENT EANDM ASSOC WITH MED * Disposition: Return in about 24 weeks (around 09/01/2025). Follow-up and Disposition History for Encounter Date Provider Department Center 03/17/2025 [id number] Status:Closed by HAROLDO TAYLOR on 03/17/25 PROGRESS Observed: 12/21/2024 10:11 AM Status: COMPLETED [id number] Author: LATA CASTILLO CPhT Service: ? Author Type: Sugar Refiner Type: Progress Notes Filed: 12/21/2024 10:15 Note Text: Patient is identified through a medication adherence outreach initiative based on pharmacy claims data from: [employer] ([employer]) Medication Adherence Category: Statins First Review Attribution Status: Correct Attribution Medication(s) Pravastatin 40 mg Medication Status per portal/Epic Reconcile Dispense: Not filled - Outreach patient Medication Status per Profile Review: No issues per profile review Patient appropriate for outreach? Yes Patient identified by name and Outreach to patient: Spoke to patient Med Adherence Concern: No refills What was primary intervention? No refills remaining, asked PT to contact prescriber (non-[facility]) for refills Lata Castillo CPhT [facility] Team CNPTOUTREACH Observed: 12/21/2024 12:00 AM Status: COMPLETED Source: [facility] Patient Outreach (PHPOHE) LUÍS HERNANDEZ ([id number]) 1945 M EXC Date Time Provider Department 12/21/24 HAROLDO TAYLOR During your visit today, we recorded the following information about you: Lata Castillo CPhT 12/21/2024 10:15 AM Signed Patient is identified through a medication adherence outreach initiative based on pharmacy claims data from: [employer] ([employer]) Medication Adherence Category: Statins First Review Attribution Status: Correct Attribution Medication(s) Pravastatin 40 mg Medication Status per portal/Epic Reconcile Dispense: Not filled - Outreach patient Medication Status per Profile Review: No issues per profile review Patient appropriate for outreach? Yes Patient identified by name and Outreach to patient: Spoke to patient Med Adherence Concern: No refills What was primary intervention? No refills remaining, asked PT to contact prescriber (non-[facility]) for refills Lata Castillo CPhT [facility] Team Allergies As of Date: 12/21/2024 Noted Allergy Reaction PERCOCET (OXYCODONE-ACETAMINOPHEN)09/11/2011 5 - Intolerance Comments: Anxiety and slurred words CODEINE 07/22/2005 2 - Rash Comments: itch, nightmares VICODIN (HYDROCODONE-ACETAMINOPHE*02/22/2009 2 - Rash 9 - Itching Date Reviewed: 12/13/2024 Reviewed by: Dary Petty, INSTRUMENT REPAIR SPECIALIST.EVALUATOR TRANSFER STUDENTS - Fully Assessed Reason for Visit: Allied Health Visit [5] Cmt: Medication Adherence Outreach Prescriptions as of 12/21/2024 - predniSONE (DELTASONE) 10 mg tablet Take 4 tabs daily x 3 days, then 3 tabs x 3 days, 2 tabs x 3 days, then 1 tab x3 days with food. - gabapentin (NEURONTIN) 300 mg capsule Take 1 capsule by mouth daily at bedtime for 180 days. - clopidogrel (PLAVIX) 75 mg tablet Take 1 tablet by mouth once daily. Per cardiology. - metoprolol tartrate, short acting, (LOPRESSOR) 50 mg tablet Take 1 tablet by mouth two times a day. Per Cardiology. - cyanocobalamin 1,000 mcg/mL Inject 1 mL intramuscularly every 2 weeks. - carbidopa-levodopa (SINEMET) 25-100 mg per tablet Take one(1) tablet daily at bedtime. - Syringe with Needle, Disp, (SYRINGE 3CC/25GX1) 3 mL 25 gauge x 1 For use with B12 injections - dutasteride (AVODART) 0.5 mg capsule Take 1 capsule by mouth once daily. UROLOGY. - pravastatin (PRAVACHOL) 40 mg tablet Take 1 tablet by mouth daily at bedtime. - magnesium oxide (MAG-OX) 400 mg (241.3 mg magnesium) tablet Take 400 mg by mouth once daily. - COMPOUNDED PRESCRIPTION Prostaglandin 30mcg/ml injectable, bimix papaverine/phentolamine 30mg/0.5mg/ml injectable for penile intracavernosal inj for ED - Melatonin 5 mg cap Take by mouth. - CALCIUM CARBONATE/VITAMIN D3 (VITAMIN D-3 ORAL) Take by mouth. - Insulin Syringe-Needle U-100 1 mL 31 gauge x 5/16 For penile intracavernosal injections for ED Problem List As Of Date 12/21/2024 Noted Resolved BPH W/O URINARY OBS/LUTS [N40.0] 07/22/2005 06/09/2007 PSA elevation [R97.20] 09/07/2006 Hypertrophy of prostate with urinary obstructio*06/09/2007 12/17/2017 Bladder neck obstruction [N32.0] 06/09/2007 07/29/2022 Chronic prostatitis [N41.1] 04/30/2009 07/29/2022 Knee pain [M25.569] 01/09/2011 12/17/2017 Umbilical hernia without mention of obstruction*06/16/2012 12/17/2017 Erectile dysfunction due to arterial insufficie*03/17/2018 10/29/2022 Urine retention [R33.9] 08/19/2019 07/29/2022 OLIVA on CPAP [G47.33] 07/29/2022 Chronic neck pain [M54.2, G89.29] 07/29/2022 Restless leg syndrome [G25.81] 07/29/2022 NSTEMI (non-ST elevated myocardial infarction) *08/29/2022 10/29/2022 Primary hypertension [I10] 08/29/2022 Hyperlipidemia [E78.5] 08/29/2022 Stented coronary artery (proximal RCA) [Z95.5] 08/29/2022 Benign prostatic hyperplasia [N40.0] 02/25/2023 Diagnosed: 02/25/2023 Hyperparathyroidism (HCC) [E21.3] 08/28/2023 Vitamin D deficiency [E55.9] 08/28/2023 Vitamin B12 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] 08/28/2023 Obesity, Class I, BMI 30-34.9 [E66.811] 09/01/[address] disease involving [facility] [facility] ira jones*09/01/2024 Colon polyposis [K63.5] 05/11/2024 Encounter Status:Closed by LATA CASTILLO on 12/21/24 XR LUMBAR 3V AP/LAT/L5-S1 Observed: 11/16 2:44 PM Status: F Source: [facility] * * *Final Report* * * DATE OF EXAM: Dec 13 2024 2:44PM WRX [id number] - XR LUMBAR 3V AP/LAT/L5-S1 / PROCEDURE REASON: multiple diagnoses * * * * Physician Interpretation * * * * TITLE: XR LUMBAR 3V AP/LAT/L5-S1 CLINICAL INDICATION: Back pain TECHNIQUE: 3 view radiographic study of the lumbar spine COMPARISON: None FINDINGS: For the purposes of this report, L4/L5 lobe be at the level of the iliac crests. Mild levocurvature of the lumbar spine with apex at L3. Preservation of vertebral body height. Mild disc space narrowing at L1/L2. Mild to moderate disc space narrowing at L2/L3 and L3/L4 with small marginal osteophyte formation. Mild disc space narrowing at L4/L5 with small marginal osteophyte formation. Moderately severe disc space narrowing at L5/S1. Minimal grade 1 retrolisthesis of L1 on L2. Grade 1 anterolisthesis of L4 on L5. Minimal grade 1 retrolisthesis of L5 on S1. Facet joint arthrosis throughout the lumbar spine the most severe in the lower lumbar spine. Heavy atherosclerotic calcification of the vasculature. IMPRESSION: Multilevel degenerative changes as detailed. [place] Folder: MATT Transcribe Date/Time: Dec 13 2024 2:52P Dictated by : NICHOLAS BRAVO MD This examination was interpreted and the report reviewed and electronically signed by: NICHOLAS BRAVO MD on Dec 13 2024 2:59PM EST [id number] PROGRESS Observed: 12/13/2024 2:40 PM Status: COMPLETED Source: [facility] HNO ID: [id number] Author: NIRMALA CHING RT(R) Service: Radiology Author Type: Technologist Type: Progress Notes Filed: 12/13/2024 14:45 Note Text: Radiology Service Progress Note PATIENT NAME: Luís Hernandez DATE OF SERVICE: December 13, 2024 TIME: 2:38 PM PATIENT IDENTITY VERIFICATION COMPLETED USING TWO (2) IDENTIFIERS: Name and Date of confirmed by patient verbally. FALL SCREENING: Has the patient had 2 falls in the last year or 1 fall with injury or currently using an Ambulatory Assistive Device (Walker, Cane, Wheelchair, Crutches, etc.)? No PATIENT GENDER DATA: Assigned male at PATIENT RELEVANT IMPLANT DATA REVIEWED: Not Applicable PATIENT PRESENTS WITH AN IMPLANTABLE OR ATTACHED LIGHT RAIL VEHICLE OPERATOR: No RADIOLOGY DEPARTMENT: General X-ray: Exam(s) Completed: Spine X-Ray(s): Lumbar AP / LAT / L5-S1 PERIPHERAL IV DATA: Not applicable SIGNED BY: RT Lyssa(R) December 13, 2024 2:38 PM PROGRESS Observed: 12/13/2024 11:48 AM Status: COMPLETED Source: [facility] HNO ID: [id number] Author: DARY PETTY APRN.EVALUATOR TRANSFER STUDENTS Service: ? Author Type: Nurse Practitioner Type: Progress Notes Filed: 12/13/2024 11:52 Note Text: CC: Patient presents with: Back Pain: RT lower into middle x 4 days HPI Recording using [employer] software for draft documentation of the visit was discussed with the patient/authorized software sales representative; all questions welcomed and answered. Patient/authorized software sales representative agreed to proceed Luís is a 79-year-old male with a history of chronic back pain, presenting with acute low back pain following a fall. Luís reports a fall that occurred on Thursday while descending stairs at home. He was carrying books in both hands and slipped on a runner, causing him to slide and fall down the last two steps, landing on his low back. The fall resulted in acute pain localized to the lower back, primarily on the right side. He describes the pain as a constant ache, present since the fall, and notes associated swelling and mild bruising observed by his . The pain does not fluctuate in severity and is not exacerbated by bending, twisting, walking, or lying down. It does not interfere with sleep. Luís has been taking Tylenol for pain management, but reports minimal relief. He has also applied ice and heat, which provided slight improvement. He denies any numbness or tingling in the legs or groin area, as well as any bowel or bladder dysfunction, hematuria, or difficulty urinating. He is able to ambulate without difficulty and denies any head injury from the fall. Luís has a history of chronic back pain, for which he received stem cell treatment approximately one month ago. He notes that the current pain is more concentrated and intense compared to his usual back pain. He is unable to take ibuprofen due to a cardiac condition and inquires about the use of muscle relaxants. He denies a history of diabetes. 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 Chronic prostatitis 04/30/2009 Colon polyposis 05/11/2024 Elevated prostate specific antigen (PSA) Erectile dysfunction due to arterial insufficiency 03/17/2018 Essential hypertension, benign Hyperparathyroidism (HCC) 09/10/2017 Hypertrophy of prostate with urinary obstruction and other lower urinary tract symptoms (LUTS) 06/09/2007 Knee joint replacement by other means 03/12/2011 Knee pain 01/09/2011 NSTEMI (non-ST elevated myocardial infarction) (HCC) 08/29/2022 OLIVA on CPAP 07/29/2022 [facility] Restless legs syndrome (RLS) Stented coronary artery (proximal RCA) 08/29/2022 Umbilical hernia without mention of obstruction or gangrene 06/16/2012 Urine retention 08/19/2019 Vitamin B12 deficiency 09/10/2017 Vitamin D deficiency 09/10/2017 PAST SURGICAL HISTORY Procedure Laterality Date ARTHROSCOPY KNEE DIAGNOSTIC W/WO SYNOVIAL BX SPX 2003 Arthroscopy, knee ARTHROSCOPY KNEE DIAGNOSTIC W/WO SYNOVIAL BX SPX 09/2006 Arthroscopy, knee ARTHRP KNE CONDYLEANDPLATU MEDIALANDLAT COMPARTMENTS 2010 Knee replacement, total lt COLONOSCOPY 05/12/2019 in [place], repeat 3-5 years COLONOSCOPY SCREENING 2003 COLONOSCOPY STOMA W/BIOPSY SINGLE/MULTIPLE 06/2024 CORONARY STENT EA VESSEL 08/25/2022 PTCA/GIUSEPPE Prox. RCA Resolute Óscar 4 x 18 mm LAMINECTOMY,CERVICAL 07/04/2020 NASAL/SPHENOID SINUS ENDOSCOPY,DX 10/07/2005 removal of cyst in sinus PARATHYROIDECTOMY/EXPLORATION PARATHYROIDS 2017 Dr Cl goldsmith w/ dr Brooke PAST SURGICAL HISTORY OF 2011 BCC excision of chest PAST SURGICAL HISTORY OF Right trigger finger RPR 1ST INGUN HRNA AGE 6 YRS/> REDUCIBLE 1988 Hernia repair, inguinal double TOTAL KNEE REPLACEMENT Right 2014 TRANSURETHRAL ELEC-SURG PROSTATECTOM 2020 VASECTOMY UNI/BI SPX W/POSTOP SEMEN EXAMS 1990 ALLERGIES Percocet [Oxycodone-Acetaminophen], Codeine, and Vicodin [Hydrocodone-Acetaminophen] MEDICATIONS gabapentin (NEURONTIN) 300 mg capsule Take 1 capsule by mouth daily at bedtime for 180 days. clopidogrel (PLAVIX) 75 mg tablet Take 1 tablet by mouth once daily. Per cardiology. metoprolol tartrate, short acting, (LOPRESSOR) 50 mg tablet Take 1 tablet by mouth two times a day. Per Cardiology. cyanocobalamin 1,000 mcg/mL Inject 1 mL intramuscularly every 2 weeks. carbidopa-levodopa (SINEMET) 25-100 mg per tablet Take one(1) tablet daily at bedtime. Syringe with Needle, Disp, (SYRINGE 3CC/25GX1) 3 mL 25 gauge x 1 For use with B12 injections dutasteride (AVODART) 0.5 mg capsule Take 1 capsule by mouth once daily. UROLOGY. magnesium oxide (MAG-OX) 400 mg (241.3 mg magnesium) tablet Take 400 mg by mouth once daily. COMPOUNDED PRESCRIPTION Prostaglandin 30mcg/ml injectable, bimix papaverine/phentolamine 30mg/0.5mg/ml injectable for penile intracavernosal inj for ED Melatonin 5 mg cap Take by mouth. CALCIUM CARBONATE/VITAMIN D3 (VITAMIN D-3 ORAL) Take by mouth. Insulin Syringe-Needle U-100 1 mL 31 gauge x 5/16 For penile intracavernosal injections for ED predniSONE (DELTASONE) 10 mg tablet Take 4 tabs daily x 3 days, then 3 tabs x 3 days, 2 tabs x 3 days, then 1 tab x3 days with food. pravastatin (PRAVACHOL) 40 mg tablet Take 1 tablet by mouth daily at bedtime. FAMILY HISTORY Problem Relation Age of Onset Hypertension Mother Stroke Mother Cancer Father lung - smoker Social History Tobacco Use Smoking status: Former Current packs/day: 1.00 Types: Cigarettes Smokeless tobacco: Never Tobacco comments: Quit over 30 years ago Vaping Use Vaping status: Never Used Substance Use Topics Alcohol use: Yes Alcohol/week: 3.0 standard drinks of alcohol Types: 3 Standard drinks or equivalent per week Drug use: Never BP 116/72 Pulse (!) 56 Resp 14 Wt 98.8 kg (217 lb 13 oz) SpO2 99% BMI 31.93 kg/m? Physical Exam Vitals reviewed. Constitutional: Appearance: Normal appearance. Musculoskeletal: Lumbar back: Tenderness present. No swelling, deformity, spasms or bony tenderness. Normal range of motion. Back: Neurological: Mental Status: He is alert. Assessment/Plan 1. Acute right-sided low back pain without sciatica (M54.50) Fall on steps, initial encounter (W10.8XXA) Patient experienced a fall on Thursday while descending stairs, resulting in acute right-sided low back pain. Pain is constant, described as an ache, and is more concentrated and stronger than his usual chronic back pain. No numbness, tingling, or bowel/bladder dysfunction reported. Physical exam reveals tenderness in the lower right back, with some swelling and bruising noted. Pain is likely muscular in origin, possibly a contusion. - Ordered X-ray of the lower back and sacral area to rule out fractures. - Initiated Prednisone therapy; instructed patient to take with food and avoid late evening doses to prevent potential side effects such as stomach upset and jitteriness. - Advised continuation of alternating heat and ice application to reduce inflammation. - Recommended use of topical analgesics like Icy Hot or Biofreeze. - Encouraged gentle stretching exercises to alleviate muscle strain. - Follow-up pending results of x-ray. Prescription instructions reviewed with patient as applicable. Potential red flag symptoms discussed with the patient. Reviewed appropriate action plan to take if red flag symptoms occur. Patient agreeable to treatment plan. Dary Petty APRN.EVALUATOR TRANSFER STUDENTS CNOV Observed: 12/13/2024 11:40 AM Status: COMPLETED Source: [facility] Office Visit (INTMWS) DAVIDLUÍS ([id number]) 1945 M EXC Date Time Provider Department 12/13/24 11:40 AM DARY PETTY INTMWS During your visit today, we recorded the following information about you: Pulse Respiration Blood pressure Weight 56/minute 14/minute 116/72 98.8 kg Dary Petty, INSTRUMENT REPAIR SPECIALIST.EVALUATOR TRANSFER STUDENTS 12/13/2024 11:47 AM Signed We discussed your low back pain following your fall: - You likely have a muscle contusion (a bruise) in your lower back, primarily on the right side. This is causing your persistent pain and tenderness. - I ordered an x-ray of your lower back and sacral area to rule out any fractures or structural issues. Please complete this as soon as possible. - Continue alternating ice and heat to help reduce inflammation and relieve discomfort. - I prescribed prednisone, a steroid to reduce inflammation, since you cannot take ibuprofen. This has been sent to your preferred [facility] pharmacy in [place]. - Take prednisone with food to avoid stomach upset. - Avoid taking it late in the evening, as it may cause jitteriness or difficulty sleeping. - Follow the dosing instructions provided with the prescription, as the dose will taper over several days. - You may continue using Icy Hot or Biofreeze on the affected area for additional relief. - Gentle stretching is recommended to help alleviate muscle tension. Avoid any activities or stretches that cause significant pain. If your symptoms worsen or do not improve despite these measures, please contact our office for further evaluation. Dary Petty, INSTRUMENT REPAIR SPECIALIST.EVALUATOR TRANSFER STUDENTS 12/13/2024 11:52 AM Signed CC: Patient presents with: Back Pain: RT lower into middle x 4 days HPI Recording using [employer] software for draft documentation of the visit was discussed with the patient/authorized software sales representative; all questions welcomed and answered. Patient/authorized software sales representative agreed to proceed Luís is a 79-year-old male with a history of chronic back pain, presenting with acute low back pain following a fall. Luís reports a fall that occurred on Thursday while descending stairs at home. He was carrying books in both hands and slipped on a runner, causing him to slide and fall down the last two steps, landing on his low back. The fall resulted in acute pain localized to the lower back, primarily on the right side. He describes the pain as a constant ache, present since the fall, and notes associated swelling and mild bruising observed by his . The pain does not fluctuate in severity and is not exacerbated by bending, twisting, walking, or lying down. It does not interfere with sleep. Luís has been taking Tylenol for pain management, but reports minimal relief. He has also applied ice and heat, which provided slight improvement. He denies any numbness or tingling in the legs or groin area, as well as any bowel or bladder dysfunction, hematuria, or difficulty urinating. He is able to ambulate without difficulty and denies any head injury from the fall. Luís has a history of chronic back pain, for which he received stem cell treatment approximately one month ago. He notes that the current pain is more concentrated and intense compared to his usual back pain. He is unable to take ibuprofen due to a cardiac condition and inquires about the use of muscle relaxants. He denies a history of diabetes. 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 Chronic prostatitis 04/30/2009 Colon polyposis 05/11/2024 Elevated prostate specific antigen (PSA) Erectile dysfunction due to arterial insufficiency 03/17/2018 Essential hypertension, benign Hyperparathyroidism (HCC) 09/10/2017 Hypertrophy of prostate with urinary obstruction and other lower urinary tract symptoms (LUTS) 06/09/2007 Knee joint replacement by other means 03/12/2011 Knee pain 01/09/2011 NSTEMI (non-ST elevated myocardial infarction) (HCC) 08/29/2022 OLIVA on CPAP 07/29/2022 [facility] Restless legs syndrome (RLS) Stented coronary artery (proximal RCA) 08/29/2022 Umbilical hernia without mention of obstruction or gangrene 06/16/2012 Urine retention 08/19/2019 Vitamin B12 deficiency 09/10/2017 Vitamin D deficiency 09/10/2017 PAST SURGICAL HISTORY Procedure Laterality Date ARTHROSCOPY KNEE DIAGNOSTIC W/WO SYNOVIAL BX SPX 2004 Arthroscopy, knee ARTHROSCOPY KNEE DIAGNOSTIC W/WO SYNOVIAL BX SPX 09/2006 Arthroscopy, knee ARTHRP KNE CONDYLEANDPLATU MEDIALANDLAT COMPARTMENTS 2010 Knee replacement, total lt COLONOSCOPY 05/12/2019 in [place], repeat 3-5 years COLONOSCOPY SCREENING 2003 COLONOSCOPY STOMA W/BIOPSY SINGLE/MULTIPLE 06/2024 CORONARY STENT EA VESSEL 08/25/2022 PTCA/GIUSEPPE Prox. RCA Resolute Óscar 4 x 18 mm LAMINECTOMY,CERVICAL 07/04/2020 NASAL/SPHENOID [...] Percocet [Oxycodone-Acetaminophen], Codeine, and Vicodin [Hydrocodone-Acetaminophen] MEDICATIONS gabapentin (NEURONTIN) 300 mg capsule Take 1 capsule by mouth daily at bedtime for 180 days. clopidogrel (PLAVIX) 75 mg tablet Take 1 tablet by mouth once daily. Per cardiology. metoprolol tartrate, short acting, (LOPRESSOR) 50 mg tablet Take 1 tablet by mouth two times a day. Per Cardiology. cyanocobalamin 1,000 mcg/mL Inject 1 mL intramuscularly every 2 weeks. carbidopa-levodopa (SINEMET) 25-100 mg per tablet Take one(1) tablet daily at bedtime. Syringe with Needle, Disp, (SYRINGE 3CC/25GX1) 3 mL 25 gauge x 1 For use with B12 injections dutasteride (AVODART) 0.5 mg capsule Take 1 capsule by mouth once daily. UROLOGY. magnesium oxide (MAG-OX) 400 mg (241.3 mg magnesium) tablet Take 400 mg by mouth once daily. COMPOUNDED PRESCRIPTION Prostaglandin 30mcg/ml injectable, bimix papaverine/phentolamine 30mg/0.5mg/ml injectable for penile intracavernosal inj for ED Melatonin 5 mg cap Take by mouth. CALCIUM CARBONATE/VITAMIN D3 (VITAMIN D-3 ORAL) Take by mouth. Insulin Syringe-Needle U-100 1 mL 31 gauge x 5/16 For penile intracavernosal injections for ED predniSONE (DELTASONE) 10 mg tablet Take 4 tabs daily x 3 days, then 3 tabs x 3 days, 2 tabs x 3 days, then 1 tab x3 days with food. pravastatin (PRAVACHOL) 40 mg tablet Take 1 tablet by mouth daily at bedtime. FAMILY HISTORY Problem Relation Age of Onset Hypertension Mother Stroke Mother Cancer Father lung - smoker Social History Tobacco Use Smoking status: Former Current packs/day: 1.00 Types: Cigarettes Smokeless tobacco: Never Tobacco comments: Quit over 30 years ago Vaping Use Vaping status: Never Used Substance Use Topics Alcohol use: Yes Alcohol/week: 3.0 standard drinks of alcohol Types: 3 Standard drinks or equivalent per week Drug use: Never BP 116/72 Pulse (!) 56 Resp 14 Wt 98.8 kg (217 lb 13 oz) SpO2 99% BMI 31.93 kg/m? Physical Exam Vitals reviewed. Constitutional: Appearance: Normal appearance. Musculoskeletal: Lumbar back: Tenderness present. No swelling, deformity, spasms or bony tenderness. Normal range of motion. Back: Neurological: Mental Status: He is alert. Assessment/Plan 1. Acute right-sided low back pain without sciatica (M54.50) Fall on steps, initial encounter (W10.8XXA) Patient experienced a fall on Thursday while descending stairs, resulting in acute right-sided low back pain. Pain is constant, described as an ache, and is more concentrated and stronger than his usual chronic back pain. No numbness, tingling, or bowel/bladder dysfunction reported. Physical exam reveals tenderness in the lower right back, with some swelling and bruising noted. Pain is likely muscular in origin, possibly a contusion. - Ordered X-ray of the lower back and sacral area to rule out fractures. - Initiated Prednisone therapy; instructed patient to take with food and avoid late evening doses to prevent potential side effects such as stomach upset and jitteriness. - Advised continuation of alternating heat and ice application to reduce inflammation. - Recommended use of topical analgesics like Icy Hot or Biofreeze. - Encouraged gentle stretching exercises to alleviate muscle strain. - Follow-up pending results of x-ray. Prescription instructions reviewed with patient as applicable. Potential red flag symptoms discussed with the patient. Reviewed appropriate action plan to take if red flag symptoms occur. Patient agreeable to treatment plan. Dary Petty APRN.EVALUATOR TRANSFER STUDENTS Referring Provider: SELF [[id number]] Allergies As of Date: 12/13/2024 Noted Allergy Reaction PERCOCET (OXYCODONE-ACETAMINOPHEN)09/11/2011 5 - Intolerance Comments: Anxiety and slurred words CODEINE 07/22/2005 2 - Rash Comments: itch, nightmares VICODIN (HYDROCODONE-ACETAMINOPHE*02/22/2009 2 - Rash 9 - Itching Date Reviewed: 12/13/2024 Reviewed by: Dary Petty APRN.EVALUATOR TRANSFER STUDENTS - Fully Assessed Reason for Visit: Back Pain [12] Cmt: RT lower into middle x 4 days Primary Visit Diagnosis:Acute right-sided low back pain without sciatica [M54.50] Other Visit Diagnosis:Fall on steps, initial encounter [W10.8XXA] Order(s):XR LUMBAR GENERAL 3V AP/LAT/L5-S1 [[id number]] Order #: [id number] FUTURE predniSONE (DELTASONE) 10 mg tabletTake 4 tabs daily x 3 days, then 3 tabs x 3 days, 2 tabs x 3 days, then 1 tab x3 days with food.Disp: 30 tabletRfl: 0 Prescriptions as of 12/13/2024 - predniSONE (DELTASONE) 10 mg tablet Take 4 tabs daily x 3 days, then 3 tabs x 3 days, 2 tabs x 3 days, then 1 tab x3 days with food. - gabapentin (NEURONTIN) 300 mg capsule Take 1 capsule by mouth daily at bedtime for 180 days. - clopidogrel (PLAVIX) 75 mg tablet Take 1 tablet by mouth once daily. Per cardiology. - metoprolol tartrate, short acting, (LOPRESSOR) 50 mg tablet Take 1 tablet by mouth two times a day. Per Cardiology. - cyanocobalamin 1,000 mcg/mL Inject 1 mL intramuscularly every 2 weeks. - carbidopa-levodopa (SINEMET) 25-100 mg per tablet Take one(1) tablet daily at bedtime. - Syringe with Needle, Disp, (SYRINGE 3CC/25GX1) 3 mL 25 gauge x 1 For use with B12 injections - dutasteride (AVODART) 0.5 mg capsule Take 1 capsule by mouth once daily. UROLOGY. - pravastatin (PRAVACHOL) 40 mg tablet Take 1 tablet by mouth daily at bedtime. - magnesium oxide (MAG-OX) 400 mg (241.3 mg magnesium) tablet Take 400 mg by mouth once daily. - COMPOUNDED PRESCRIPTION Prostaglandin 30mcg/ml injectable, bimix papaverine/phentolamine 30mg/0.5mg/ml injectable for penile intracavernosal inj for ED - Melatonin 5 mg cap Take by mouth. - CALCIUM CARBONATE/VITAMIN D3 (VITAMIN D-3 ORAL) Take by mouth. - Insulin Syringe-Needle U-100 1 mL 31 gauge x 5/16 For penile intracavernosal injections for ED Problem List As Of Date 12/13/2024 Noted Resolved BPH W/O URINARY OBS/LUTS [N40.0] 07/22/2005 06/09/2007 PSA elevation [R97.20] 09/07/2006 Hypertrophy of prostate with urinary obstructio*06/09/2007 12/17/2017 Bladder neck obstruction [N32.0] 06/09/2007 07/29/2022 Chronic prostatitis [N41.1] 04/30/2009 07/29/2022 Knee pain [M25.569] 01/09/2011 12/17/2017 Umbilical hernia without mention of obstruction*06/16/2012 12/17/2017 Erectile dysfunction due to arterial insufficie*03/17/2018 10/29/2022 Urine retention [R33.9] 08/19/2019 07/29/2022 OLIVA on CPAP [G47.33] 07/29/2022 Chronic neck pain [M54.2, G89.29] 07/29/2022 Restless leg syndrome [G25.81] 07/29/2022 NSTEMI (non-ST elevated myocardial infarction) *08/29/2022 10/29/2022 Primary hypertension [I10] 08/29/2022 Hyperlipidemia [E78.5] 08/29/2022 Stented coronary artery (proximal RCA) [Z95.5] 08/29/2022 Benign prostatic hyperplasia [N40.0] 02/25/2023 Diagnosed: 02/25/2023 Hyperparathyroidism (HCC) [E21.3] 08/28/2023 Vitamin D deficiency [E55.9] 08/28/2023 Vitamin B12 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] 08/28/2023 Obesity, Class I, BMI 30-34.9 [E66.811] 09/01/2024 [address] disease involving [facility] ira jones*09/01/2024 Colon polyposis [K63.5] 05/11/2024 Other instructions from your clinician: We discussed your low back pain following your fall: - You likely have a muscle contusion (a bruise) in your lower back, primarily on the right side. This is causing your persistent pain and tenderness. - I ordered an x-ray of your lower back and sacral area to rule out any fractures or structural issues. Please complete this as soon as possible. - Continue alternating ice and heat to help reduce inflammation and relieve discomfort. - I prescribed prednisone, a steroid to reduce inflammation, since you cannot take ibuprofen. This has been sent to your preferred [facility] pharmacy in [place]. - Take prednisone with food to avoid stomach upset. - Avoid taking it late in the evening, as it may cause jitteriness or difficulty sleeping. - Follow the dosing instructions provided with the prescription, as the dose will taper over several days. - You may continue using Icy Hot or Biofreeze on the affected area for additional relief. - Gentle stretching is recommended to help alleviate muscle tension. Avoid any activities or stretches that cause significant pain. If your symptoms worsen or do not improve despite these measures, please contact our office for further evaluation. Prescriptions ordered this encounter Disp Refills Start End PREDNISONE 10 MG TABLET 30 t* 0 12/13/2024 12/25/2024 Sig: Take 4 tabs daily x 3 days, then 3 tabs x 3 days, 2 tabs x 3 days, then 1 tab x3 days with food. Level of Service: OFFICE/OUTPATIENT ESTABLISHED LOW MDM 20 MIN [90261] Additional E/M codes: VISIT CPLX INHERENT EANDM ASSOC WITH MED * Encounter Status:Closed by DARY PETTY on 12/13/24 PROGRESS Observed: 09/01/2024 8:26 AM Status: COMPLETED [id number] Author: HAROLDO TAYLOR MD Service: ? Author Type: Physician Type: Progress Notes Filed: 09/01/2024 09:42 Note Text: This note was created using NoteWriter. Subjective Luís Hernandez is a 79 year old male. He was doing well and had no concerns. His medications have been adjusted by his specialists and we updated his medication list. He was using his CPAP regularly and benefiting from nightly CPAP use. He had urinary tract infections recently which now resolved. He was scheduled to see Dr. Dunn and advised to inform him of recent urinary tract infection. He had colonoscopy and needed recheck in 3 years was recommended. Neck pains were stable, and gabapentin was only taken as needed. Review of Systems Constitutional: Negative for fever and unexpected weight change. Respiratory: Negative for cough and shortness of breath. Cardiovascular: Negative for chest pain, palpitations and leg swelling. Gastrointestinal: Negative for abdominal pain, nausea and vomiting. Genitourinary: Negative for difficulty urinating and dysuria. Skin: Positive for color change. Neurological: Negative for dizziness and headaches. Psychiatric/Behavioral: Negative for sleep disturbance. ACTIVE PROBLEM LIST Psa Elevation Oliva On Cpap Chronic Neck Pain Restless Leg Syndrome Primary Hypertension Hyperlipidemia Stented coronary artery (proximal RCA) Benign Prostatic Hyperplasia Hyperparathyroidism (Hcc) Vitamin D Deficiency Vitamin B12 Deficiency Obesity, Class I, Bmi 30-34.9 Coronary Artery Disease Involving [place] Coronary Artery of [place] Heart Without Angina Pectoris Colon Polyposis Social History Tobacco Use Smoking status: Former Current packs/day: 1.00 Types: Cigarettes Smokeless tobacco: Never Tobacco comments: Quit over 30 years ago Vaping Use Vaping status: Never Used Substance Use Topics Alcohol use: Yes Alcohol/week: 3.0 standard drinks of alcohol Types: 3 Standard drinks or equivalent per week Drug use: Never Current Outpatient Medications Medication Sig cyanocobalamin 1,000 mcg/mL Inject 1 mL intramuscularly every 2 weeks. carbidopa-levodopa (SINEMET) 25-100 mg per tablet Take one(1) tablet daily at bedtime. Syringe with Needle, Disp, (SYRINGE 3CC/25GX1) 3 mL 25 gauge x 1 For use with B12 injections metoprolol tartrate, short acting, (LOPRESSOR) 25 mg tablet Take 0.5 tablets by mouth twice daily. CARDIOLOGY. doxazosin (CARDURA) 2 mg tablet Take 1 tablet by mouth daily at bedtime. UROLOGY. dutasteride (AVODART) 0.5 mg capsule Take 1 capsule by mouth once daily. UROLOGY. ticagrelor (BRILINTA) 60 mg tablet Take 60 mg by mouth one time only. pravastatin (PRAVACHOL) 40 mg tablet Take 1 [...] Syringe-Needle U-100 1 mL 31 gauge x 16 For penile intracavernosal injections for ED gabapentin (NEURONTIN) 300 mg capsule Take 1 capsule by mouth daily at bedtime for 180 days. docusate sodium (COLACE) 100 mg capsule Take 1 capsule by mouth two times a day. (Patient not taking: Reported on 09/01/2024) polyethylene glycol 3350 (MIRALAX) 17 gram/dose powder Take 17 g by mouth once daily. (Patient not taking: Reported on 09/01/2024) multivit-mins 25-folic acid-D3 3-2,000 mg-unit tab Take by mouth. (Patient not taking: Reported on 09/01/2024) No current facility-administered medications for this visit. Objective BP 118/78 (BP Site: Left Arm, BP Position: Sitting, BP Cuff Size: Large Adult) Pulse 60 Temp 36.7 ?C (98 ?F) (Temporal) Resp 16 Ht 175.9 cm (5' 9.25) Wt 99.2 kg (218 lb 11.1 oz) BMI 32.06 kg/m? Physical Exam Constitutional: General: He is not in acute distress. Appearance: He is not ill-appearing. Cardiovascular: Rate and Rhythm: Normal rate and regular rhythm. Heart sounds: No murmur heard. No gallop. Pulmonary: Effort: No respiratory distress. Breath sounds: No wheezing or rales. Abdominal: Palpations: Abdomen is soft. Tenderness: There is no abdominal tenderness. There is no right CVA tenderness or left CVA tenderness. Musculoskeletal: Right lower leg: No edema. Left lower leg: No edema. Neurological: Mental Status: He is alert. Gait: Gait normal. Assessment and Plan 1. Medicare annual wellness visit, subsequent - ICD9: V70.0, ICD10: Z00.00 (primary diagnosis) - See wellness visit. 2. Chronic neck pain - ICD9: 723.1, 338.29, ICD10: M54.2, G89.29 Stable. Refilled. - GABAPENTIN 300 MG CAPSULE 3. Need for influenza vaccination - ICD9: V04.81, ICD10: Z23 - INFLUENZA VACCINE, PRSV FREE, AGE 65+ YR, HIGH DOSE, TRIVALENT (FLUZONE HIGH-DOSE) 4. Screening for depression - ICD9: V79.0, ICD10: Z13.31 - DEPRESSION SCREENING 5. Encounter for screening examination for other mental health and behavioral disorders - ICD9: V79.8, ICD10: Z13.39 - ANXIETY SCREENING 6. Hyperparathyroidism (HCC) - ICD9: 252.00, ICD10: E21.3 Stable. 7. Obesity, Class I, BMI 30-34.9 - ICD9: 278.00, ICD10: E66.811 Weight loss recommended. 8. Vitamin B12 deficiency - ICD9: 266.2, ICD10: E53.8 Recheck. - COMPLETE BLOOD COUNT - VITAMIN B12 9. Vitamin D deficiency - ICD9: 268.9, ICD10: E55.9 Recheck. - VITAMIN D 25 HYDROXY 10. Primary hypertension - ICD9: 401.9, ICD10: I10 - Controlled - Continue current medications - Encouraged sodium restriction, DASH or Mediterranean diet - Discussed need for and benefit of weight loss. BMI 32.06 kg/(m2) 11. Hyperlipidemia, unspecified hyperlipidemia type - ICD9: 272.4, ICD10: E78.5 - Control undetermined, due for labs - Continue current medications - Counseled on healthy diet and regular exercise - COMPREHENSIVE METABOLIC PANEL - LIPID PANEL BASIC 12. Coronary artery disease involving [facility] coronary artery of [facility] [place] heart without angina pectoris - ICD9: 414.01, ICD10: I25.10 - Per cardiology. Medications updated. - CLOPIDOGREL 75 MG TABLET 13. OLIVA on CPAP - ICD9: 327.23, ICD10: G47.33 - Using and benefiting from regular CPAP use. Continue per Dr. Carpenter. 14. Colon polyposis - ICD9: 211.3, ICD10: K63.5 Updated. Recheck recommended in 3 years. Haroldo Taylor MD PROGRESS Observed: 09/01/2024 8:21 AM Status: COMPLETED Source: [facility] HNO ID: [id number] Author: HAROLDO TAYLOR MD Service: ? Author Type: Physician Type: Progress Notes Filed: 09/01/2024 09:42 Note Text: Luís Hernandez is a 79 year old male here for a Medicare wellness visit. Medicare Health Risk Assessment General Health Good Exercise: Minutes/Day 30 min Exercise: Days/Week 2 days Alcohol: Daily Use 2-3 times a week Alcohol: Drinks/Day 1 or 2 Alcohol: 6 or more drinks Never Feel off balance No Concerns: Teeth/Dentures No Concerns: Sexual function No Troubled by feelings None of the above Frequency: Eating healthy diet Several days ADLs requiring help None of the above Safety precautions in home/vehicle Yes Smoke, vape, chews tobacco No Difficulty hearing No Difficulty seeing No Current Providers Specialists: I have reviewed specialist-related care of the patient in the medical record. Current care team: Patient Care Team: Haroldo Taylor MD as PCP - General (Internal Medicine) JovannyDary garcia APRN.EVALUATOR TRANSFER STUDENTS as Computing Machine Operator (Internal Medicine) Outside specialists seen: Dr. Rebekah Ly, ophthalmology. Dr. Mihaela Dunn, urology. Dr. Henri Hooper, cardiology. Dr. Malik Bower, ENT. Dr. Alyssa Stack, [facility] Dermatology. Dr. Hermes Meeks, Gastroenterology. Dr. Alexandru Carpenter, Sleep Medicine. DME supplier: [employer]. Medical/Family history review Reviewed and updated problem list, medical/surgical/family/social history, medications, and allergies. Opioid use review Opioid Medications (last 90 days) No data to display Anxiety/Depression screening PHQ-2 Score: 0 (Lower risk for depression) GARY-2 Score: 0 (Lower risk for anxiety) Recommendation: no further intervention at this time Cognitive screening Mini Cog Score: 3 Cognitive screening reviewed and No further action needed (score 3-5). Functional Observation Was the patient's Timed Up AND Go test unsteady or >= 12 seconds? No Advance Care Planning Surrogate decision maker and/or advance care plan documented Measurements BP 118/78 (BP Site: Left Arm, BP Position: Sitting, BP Cuff Size: Large Adult) Pulse 60 Temp 36.7 ?C (98 ?F) (Temporal) Resp 16 Ht 175.9 cm (5' 9.25) Wt 99.2 kg (218 lb 11.1 oz) BMI 32.06 kg/m? Vision Screening: Follows with optometry/ophthalmology Right: 20/40 Left: 20/ 40 Both: 20/40 Assessment/Plan Medicare annual wellness visit, subsequent (Z00.00) - Counseled on healthy diet and regular exercise - Fall avoidance information provided - Personalized prevention plan provided - Discussed need for and benefit of weight loss. BMI 32.06 kg/(m2) CNOV Observed: 09/01/2024 8:00 AM Status: COMPLETED Source: [facility] Office Visit (INTM[facility]) LUÍS HERNANDEZ ([id number]) 1945 M EXC Date Time Provider Department 09/01/24 8:00 AM HAROLDO TAYLOR INTM[facility] During your visit today, we recorded the following information about you: Temperature Pulse Respiration Blood pressure 98 degrees 60/minute 16/minute 118/78 Weight Height 99.2 kg 1.759 m Haroldo Taylor MD 09/01/2024 9:42 AM Signed Luís Hernandez is a 79 year old male here for a Medicare wellness visit. Medicare Health Risk Assessment General Health Good Exercise: Minutes/Day 30 min Exercise: Days/Week 2 days Alcohol: Daily Use 2-3 times a week Alcohol: Drinks/Day 1 or 2 Alcohol: 6 or more drinks Never Feel off balance No Concerns: Teeth/Dentures No Concerns: Sexual function No Troubled by feelings None of the above Frequency: Eating healthy diet Several days ADLs requiring help None of the above Safety precautions in home/vehicle Yes Smoke, vape, chews tobacco No Difficulty hearing No Difficulty seeing No Current Providers Specialists: I have reviewed specialist-related care of the patient in the medical record. Current care team: Patient Care Team: Haroldo Taylor MD as PCP - General (Internal Medicine) Dary Petty, BERTA.EVALUATOR TRANSFER STUDENTS as Computing Machine Operator (Internal Medicine) Outside specialists seen: Dr. Rebekah Ly, ophthalmology. Dr. Mihaela Dunn, urology. Dr. Henri Hooper, cardiology. Dr. Malik Bower, ENT. Dr. Alyssa Stack, [facility] Dermatology. Dr. Hermes Meeks, Gastroenterology. Dr. Alexandru Carpenter, Sleep Medicine. DME supplier: [employer]. Medical/Family history review Reviewed and updated problem list, medical/surgical/family/social history, medications, and allergies. Opioid use review Opioid Medications (last 90 days) No data to display Anxiety/Depression screening PHQ-2 Score: 0 (Lower risk for depression) GARY-2 Score: 0 (Lower risk for anxiety) Recommendation: no further intervention at this time Cognitive screening Mini Cog Score: 3 Cognitive screening reviewed and No further action needed (score 3-5). Functional Observation Was the patient's Timed Up AND Go test unsteady or >= 12 seconds? No Advance Care Planning Surrogate decision maker and/or advance care plan documented Measurements BP 118/78 (BP Site: Left Arm, BP Position: Sitting, BP Cuff Size: Large Adult) Pulse 60 Temp 36.7 ?C (98 ?F) (Temporal) Resp 16 Ht 175.9 cm (5' 9.25) Wt 99.2 kg (218 lb 11.1 oz) BMI 32.06 kg/m? Vision Screening: Follows with optometry/ophthalmology Right: 20/40 Left: 20/ 40 Both: 20/40 Assessment/Plan Medicare annual wellness visit, subsequent (Z00.00) - Counseled on healthy diet and regular exercise - Fall avoidance information provided - Personalized prevention plan provided - Discussed need for and benefit of weight loss. BMI 32.06 kg/(m2) Haroldo Taylor MD 09/01/2024 9:42 AM Signed This note was created using Gevo. Subjective Luís Hernandez is a 79 year old male. He was doing well and had no concerns. His medications have been adjusted by his specialists and we updated his medication list. He was using his CPAP regularly and benefiting from nightly CPAP use. He had urinary tract infections recently which now resolved. He was scheduled to see Dr. Dunn and advised to inform him of recent urinary tract infection. He had colonoscopy and needed recheck in 3 years was recommended. Neck pains were stable, and gabapentin was only taken as needed. Review of Systems Constitutional: Negative for fever and unexpected weight change. Respiratory: Negative for cough and shortness of breath. Cardiovascular: Negative for chest pain, palpitations and leg swelling. Gastrointestinal: Negative for abdominal pain, nausea and vomiting. Genitourinary: Negative for difficulty urinating and dysuria. Skin: Positive for color change. Neurological: Negative for dizziness and headaches. Psychiatric/Behavioral: Negative for sleep disturbance. ACTIVE PROBLEM LIST Psa Elevation Oliva On Cpap Chronic Neck Pain Restless Leg Syndrome Primary Hypertension Hyperlipidemia Stented coronary artery (proximal RCA) Benign Prostatic Hyperplasia Hyperparathyroidism (Hcc) Vitamin D Deficiency Vitamin B12 Deficiency Obesity, Class I, Bmi 30-34.9 Coronary Artery Disease Involving [place] Coronary Artery of [place] Heart Without Angina Pectoris Colon Polyposis Social History Tobacco Use Smoking status: Former Current packs/day: 1.00 Types: Cigarettes Smokeless tobacco: Never Tobacco comments: Quit over 30 years ago Vaping Use Vaping status: Never Used Substance Use Topics Alcohol use: Yes Alcohol/week: 3.0 standard drinks of alcohol Types: 3 Standard drinks or equivalent per week Drug use: Never Current Outpatient Medications Medication Sig cyanocobalamin 1,000 mcg/mL Inject 1 mL intramuscularly every 2 weeks. carbidopa-levodopa (SINEMET) 25-100 mg per tablet Take one(1) tablet daily at bedtime. Syringe with Needle, Disp, (SYRINGE 3CC/25GX1) 3 mL 25 gauge x 1 For use with B12 injections metoprolol tartrate, short acting, (LOPRESSOR) 25 mg tablet Take 0.5 tablets by mouth twice daily. CARDIOLOGY. doxazosin (CARDURA) 2 mg tablet Take 1 tablet by mouth daily at bedtime. UROLOGY. dutasteride (AVODART) 0.5 mg capsule Take 1 capsule by mouth once daily. UROLOGY. ticagrelor (BRILINTA) 60 mg tablet Take 60 mg by mouth one time only. pravastatin (PRAVACHOL) 40 mg tablet Take 1 [...] Syringe-Needle U-100 1 mL 31 gauge x /16 For penile intracavernosal injections for ED gabapentin (NEURONTIN) 300 mg capsule Take 1 capsule by mouth daily at bedtime for 180 days. docusate sodium (COLACE) 100 mg capsule Take 1 capsule by mouth two times a day. (Patient not taking: Reported on 09/01/2024) polyethylene glycol 3350 (MIRALAX) 17 gram/dose powder Take 17 g by mouth once daily. (Patient not taking: Reported on 09/01/2024) multivit-mins 25-folic acid-D3 3-2,000 mg-unit tab Take by mouth. (Patient not taking: Reported on 09/01/2024) No current facility-administered medications for this visit. Objective BP 118/78 (BP Site: Left Arm, BP Position: Sitting, BP Cuff Size: Large Adult) Pulse 60 Temp 36.7 ?C (98 ?F) (Temporal) Resp 16 Ht 175.9 cm (5' 9.25) Wt 99.2 kg (218 lb 11.1 oz) BMI 32.06 kg/m? Physical Exam Constitutional: General: He is not in acute distress. Appearance: He is not ill-appearing. Cardiovascular: Rate and Rhythm: Normal rate and regular rhythm. Heart sounds: No murmur heard. No gallop. Pulmonary: Effort: No respiratory distress. Breath sounds: No wheezing or rales. Abdominal: Palpations: Abdomen is soft. Tenderness: There is no abdominal tenderness. There is no right CVA tenderness or left CVA tenderness. Musculoskeletal: Right lower leg: No edema. Left lower leg: No edema. Neurological: Mental Status: He is alert. Gait: Gait normal. Assessment and Plan 1. Medicare annual wellness visit, subsequent - ICD9: V70.0, ICD10: Z00.00 (primary diagnosis) - See wellness visit. 2. Chronic neck pain - ICD9: 723.1, 338.29, ICD10: M54.2, G89.29 Stable. Refilled. - GABAPENTIN 300 MG CAPSULE 3. Need for influenza vaccination - ICD9: V04.81, ICD10: Z23 - INFLUENZA VACCINE, PRSV FREE, AGE 65+ YR, HIGH DOSE, TRIVALENT (FLUZONE HIGH-DOSE) 4. Screening for depression - ICD9: V79.0, ICD10: Z13.31 - DEPRESSION SCREENING 5. Encounter for screening examination for other mental health and behavioral disorders - ICD9: V79.8, ICD10: Z13.39 - ANXIETY SCREENING 6. Hyperparathyroidism (HCC) - ICD9: 252.00, ICD10: E21.3 Stable. 7. Obesity, Class I, BMI 30-34.9 - ICD9: 278.00, ICD10: E66.811 Weight loss recommended. 8. Vitamin B12 deficiency - ICD9: 266.2, ICD10: E53.8 Recheck. - COMPLETE BLOOD COUNT - VITAMIN B12 9. Vitamin D deficiency - ICD9: 268.9, ICD10: E55.9 Recheck. - VITAMIN D 25 HYDROXY 10. Primary hypertension - ICD9: 401.9, ICD10: I10 - Controlled - Continue current medications - Encouraged sodium restriction, DASH or Mediterranean diet - Discussed need for and benefit of weight loss. BMI 32.06 kg/(m2) 11. Hyperlipidemia, unspecified hyperlipidemia type - ICD9: 272.4, ICD10: E78.5 - Control undetermined, due for labs - Continue current medications - Counseled on healthy diet and regular exercise - COMPREHENSIVE METABOLIC PANEL - LIPID PANEL BASIC 12. Coronary artery disease involving [place] coronary artery of [place] heart without angina pectoris - ICD9: 414.01, ICD10: I25.10 - Per cardiology. Medications updated. - CLOPIDOGREL 75 MG TABLET 13. OLIVA on CPAP - ICD9: 327.23, ICD10: G47.33 - Using and benefiting from regular CPAP use. Continue per Dr. Carpenter. 14. Colon polyposis - ICD9: 211.3, ICD10: K63.5 Updated. Recheck recommended in 3 years. MD Bunny Jolley Victor H, MD 09/01/2024 8:38 AM Addendum Fasting blood work soon. Screening schedule The following prevention plan is recommended: Depression Screening Never done Anxiety Screening Never done DTaP,Tdap,Td Vaccine(1 - Tdap) due on 07/22/2003 RSV Vaccine(1 - 1-dose 75+ series) Never done Influenza Vaccine(1) due on 04/17/2024 Advance Directive Discussion due on 08/17/2024 WHAT YOU CAN DO TO PREVENT FALLS Many falls can be prevented. By making some changes, you can lower your chances of falling. Four things YOU can do to prevent falls for you* and your caregiver 1. Begin a regular exercise program Exercise is one of the most important ways to lower your chances of falling. It makes you stronger and helps you feel better. Exercises that improve balance and coordination (like Zackary Chi) are the most helpful. Lack of exercise leads to weakness and increases your chances of falling. Ask your doctor or health care provider about the best type of exercise program for you. 2. Have your health care provider review your medicines Have your doctor or pharmacist review all the medicines you take, even nsda-myv-ttnesup medicines. As you get older, the way medicines work in your body can change. Some medicines, or combinations of medicines, can make you sleepy or dizzy and can cause you to fall. 3. Have your vision checked Have your eyes checked by an eye doctor at least once a year. You may be wearing the wrong glasses or have a condition like glaucoma or cataracts that limits your vision. Poor vision can increase your chances of falling. 4. Make your home safer About half of all falls happen at home. To make your home safer: Remove things you can trip over (like papers, books, clothes, and shoes) from stairs and places where you walk. Remove small throw rugs or use double-sided tape to keep the rugs from slipping. Keep items you use often in cabinets you can reach easily without using a step stool. Have grab bars put in next to your toilet and in the tub or shower. Use non-slip mats in the bathtub and on shower floors. Improve the lighting in your home. As you get older, you need brighter lights to see well. Hang light-weight curtains or shades to reduce glare. Have handrails and lights put in on all staircases. Wear shoes both inside and outside the house. Avoid going barefoot or wearing slippers. For more information, contact: Centers for Disease Control and Prevention www.cdc.gov/injury * This information may not apply if you have certain medical conditions. Allergies As of Date: 09/01/2024 Noted Allergy Reaction PERCOCET (OXYCODONE-ACETAMINOPHEN)09/11/2011 5 - Intolerance Comments: Anxiety and slurred words CODEINE 07/22/2005 2 - Rash Comments: itch, nightmares VICODIN (HYDROCODONE-ACETAMINOPHE*02/22/2009 2 - Rash 9 - Itching Date Reviewed: 09/01/2024 Reviewed by: Alyssa Munoz LPN - Fully Assessed Reason for Visit: Medicare Wellness Exam [4060] Results [95] Immunizations [194] Cmt: Flu vaccination Primary Visit Diagnosis:Medicare annual wellness visit, subsequent [Z00.00] Other Visit Diagnoses:Chronic neck pain [M54.2, G89.29] Need for influenza vaccination [Z23] Screening for depression [Z13.31] Encounter for screening examination for other mental health and behavioral disorders [Z13.39] Hyperparathyroidism (HCC) [E21.3] Obesity, Class I, BMI 30-34.9 [E66.811] Vitamin B12 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] Vitamin D deficiency [E55.9] Primary hypertension [I10] Hyperlipidemia, unspecified hyperlipidemia type [E78.5] Coronary artery disease involving [facility] [place] coronary artery of [facility] heart without angina pectoris [I25.10] OLIVA on CPAP [G47.33] Colon polyposis [K63.5] Order(s):INFLUENZA VACCINE, PRSV FREE, AGE 65+ YR, HIGH DOSE, TRIVALENT (FLUZONE HIGH-DOSE) [[id number]] Order #: [id number] gabapentin (NEURONTIN) 300 mg capsuleTake 1 capsule by mouth daily at bedtime for 180 days.Disp: 90 capsuleRfl: 0 DEPRESSION SCREENING [[id number]] Order #: [id number]: 1 ANXIETY SCREENING [2096866] Order #: [id number]: 1 COMPLETE BLOOD COUNT [SQCBC] Order #: [id number] FUTURE COMPREHENSIVE METABOLIC PANEL [SQCMP] Order #: [id number] FUTURE LIPID PANEL BASIC [SQLIPB] Order #: [id number] FUTURE VITAMIN B12 [SQB12] Order #: [id number] FUTURE VITAMIN D 25 HYDROXY [SQVITD] Order #: [id number] FUTURE Prescriptions as of 09/01/2024 - gabapentin (NEURONTIN) 300 mg capsule Take 1 capsule by mouth daily at bedtime for 180 days. - clopidogrel (PLAVIX) 75 mg tablet Take 1 tablet by mouth once daily. Per cardiology. - metoprolol tartrate, short acting, (LOPRESSOR) 50 mg tablet Take 1 tablet by mouth two times a day. Per Cardiology. - cyanocobalamin 1,000 mcg/mL Inject 1 mL intramuscularly every 2 weeks. - carbidopa-levodopa (SINEMET) 25-100 mg per tablet Take one(1) tablet daily at bedtime. - Syringe with Needle, Disp, (SYRINGE 3CC/25GX1) 3 mL 25 gauge x 1 For use with B12 injections - dutasteride (AVODART) 0.5 mg capsule Take 1 capsule by mouth once daily. UROLOGY. - pravastatin (PRAVACHOL) 40 mg tablet Take 1 tablet by mouth daily at bedtime. - magnesium oxide (MAG-OX) 400 mg (241.3 mg magnesium) tablet Take 400 mg by mouth once daily. - COMPOUNDED PRESCRIPTION Prostaglandin 30mcg/ml injectable, bimix papaverine/phentolamine 30mg/0.5mg/ml injectable for penile intracavernosal inj for ED - Melatonin 5 mg cap Take by mouth. - CALCIUM CARBONATE/VITAMIN D3 (VITAMIN D-3 ORAL) Take by mouth. - Insulin Syringe-Needle U-100 1 mL 31 gauge x 5/16 For penile intracavernosal injections for ED Problem List As Of Date 09/01/2024 Noted Resolved BPH W/O URINARY OBS/LUTS [N40.0] 07/22/2005 06/09/2007 PSA elevation [R97.20] 09/07/2006 Hypertrophy of prostate with urinary obstructio*06/09/2007 12/17/2017 Bladder neck obstruction [N32.0] 06/09/2007 07/29/2022 Chronic prostatitis [N41.1] 04/30/2009 07/29/2022 Knee pain [M25.569] 01/09/2011 12/17/2017 Umbilical hernia without mention of obstruction*06/16/2012 12/17/2017 Erectile dysfunction due to arterial insufficie*03/17/2018 10/29/2022 Urine retention [R33.9] 08/19/2019 07/29/2022 OLIVA on CPAP [G47.33] 07/29/2022 Chronic neck pain [M54.2, G89.29] 07/29/2022 Restless leg syndrome [G25.81] 07/29/2022 NSTEMI (non-ST elevated myocardial infarction) *08/29/2022 10/29/2022 Primary hypertension [I10] 08/29/2022 Hyperlipidemia [E78.5] 08/29/2022 Stented coronary artery (proximal RCA) [Z95.5] 08/29/2022 Benign prostatic hyperplasia [N40.0] 02/25/2023 Diagnosed: 02/25/2023 Hyperparathyroidism (HCC) [E21.3] 08/28/2023 Vitamin D deficiency [E55.9] 08/28/2023 Vitamin B12 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] 08/28/2023 Obesity, Class I, BMI 30-34.9 [E66.811] 09/01/2024 [address] artery disease involving [facility] [place] jones*09/01/2024 Colon polyposis [K63.5] 05/11/2024 Other instructions from your clinician: Fasting blood work soon. Screening schedule The following prevention plan is recommended: Depression Screening Never done Anxiety Screening Never done DTaP,Tdap,Td Vaccine(1 - Tdap) due on 07/22/2003 RSV Vaccine(1 - 1-dose 75+ series) Never done Influenza Vaccine(1) due on 04/17/2024 Advance Directive Discussion due on 08/17/2024 WHAT YOU CAN DO TO PREVENT FALLS Many falls can be prevented. By making some changes, you can lower your chances of falling. Four things YOU can do to prevent falls for you* and your caregiver 1. Begin a regular exercise program Exercise is one of the most important ways to lower your chances of falling. It makes you stronger and helps you feel better. Exercises that improve balance and coordination (like Zackary Chi) are the most helpful. Lack of exercise leads to weakness and increases your chances of falling. Ask your doctor or health care provider about the best type of exercise program for you. 2. Have your health care provider review your medicines Have your doctor or pharmacist review all the medicines you take, even jbdi-gfb-iqzukes medicines. As you get older, the way medicines work in your body can change. Some medicines, or combinations of medicines, can make you sleepy or dizzy and can cause you to fall. 3. Have your vision checked Have your eyes checked by an eye doctor at least once a year. You may be wearing the wrong glasses or have a condition like glaucoma or cataracts that limits your vision. Poor vision can increase your chances of falling. 4. Make your home safer About half of all falls happen at home. To make your home safer: Remove things you can trip over (like papers, books, clothes, and shoes) from stairs and places where you walk. Remove small throw rugs or use double-sided tape to keep the rugs from slipping. Keep items you use often in cabinets you can reach easily without using a step stool. Have grab bars put in next to your toilet and in the tub or shower. Use non-slip mats in the bathtub and on shower floors. Improve the lighting in your home. As you get older, you need brighter lights to see well. Hang light-weight curtains or shades to reduce glare. Have handrails and lights put in on all staircases. Wear shoes both inside and outside the house. Avoid going barefoot or wearing slippers. For more information, contact: Centers for Disease Control and Prevention www.cdc.gov/injury * This information may not apply if you have certain medical conditions. Prescriptions ordered this encounter Disp Refills Start End GABAPENTIN 300 MG CAPSULE 90 c* 0 09/01/2024 02/28/2025 Route: ORAL Sig: Take 1 capsule by mouth daily at bedtime for 180 days. Medications Discontinued During This Encounter Prescriptions - gabapentin (NEURONTIN) 300 mg capsule (Discontinued) Take 1 capsule by mouth daily at bedtime for 180 days. - docusate sodium (COLACE) 100 mg capsule (Discontinued) Reported on 09/01/2024 - multivit-mins 25-folic acid-D3 3-2,000 mg-unit tab (Discontinued) Reported on 09/01/2024 - polyethylene glycol 3350 (MIRALAX) 17 gram/dose powder (Discontinued) Reported on 09/01/2024 - ticagrelor (BRILINTA) 60 mg tablet (Discontinued) Take 60 mg by mouth one time only. - doxazosin (CARDURA) 2 mg tablet (Discontinued) Take 1 tablet by mouth daily at bedtime. UROLOGY. - metoprolol tartrate, short acting, (LOPRESSOR) 25 mg tablet (Discontinued) Take 0.5 tablets by mouth twice daily. CARDIOLOGY. Disposition: Return in about 6 months (around 03/01/2025). Follow-up and Disposition History for Encounter Date Provider Department Center 09/01/2024 [id number] TAYLOR INTMWS [facility] Dannielle Encounter Status:Closed by HAROLDO TAYLOR on 09/01/24 US KIDNEY/BLADDER Observed: 08/22/2024 11:34 AM Status: F Source: [facility] * * *Final Report* * * DATE OF EXAM: Aug 22 2024 11:34AM U 1055 - US KIDNEY/BLADDER / PROCEDURE REASON: Urinary tract infection without hematuria, site unspecified * * * * Physician Interpretation * * * * EXAMINATION: RENAL ULTRASOUND CLINICAL HISTORY: Urinary tract infection TECHNIQUE: Sonography of the kidneys and urinary bladder was performed. Images were obtained and stored in a permanent archive. MQ: UR_1 COMPARISON: None RESULT: Right Kidney: -Renal length: 11.9 cm -Parenchyma: Normal parenchymal echogenicity. Normal parenchymal thickness. -Collecting system: No hydronephrosis. -Calculus: No echogenic, shadowing calculus. -Lesion: None. Left Kidney: -Renal length: 12.7 cm -Parenchyma: Normal parenchymal echogenicity. Normal parenchymal thickness. -Collecting system: No hydronephrosis. -Calculus: No echogenic, shadowing calculus. -Lesion: None. Bladder: Normal sonographic appearance. Pre and postvoid urinary bladder volume of 238 cc and 95 cc respectively were recorded. Bilateral ureteral jets are seen. Prostate measures 6 x 4.1 x 6 cm IMPRESSION: Moderate post void residual urinary bladder volume. Otherwise normal renal ultrasound [place] Folder: PSCB Transcribe Date/Time: Aug 23 2024 8:54A Dictated by : MERRY RODRIGUEZ MD This examination was interpreted and the report reviewed and electronically signed by: MERRY RODRIGUEZ MD on Aug 23 2024 8:57AM EST [id number] Observed: 08/22/2024 11:30 AM Status: COMPLETED Source: [facility] HNO ID: [id number] Author: FLORIAN URRUTIA RDMS Service: ? Author Type: Real Estate Photographer Type: Progress Notes Filed: 08/22/2024 11:53 Note Text: Radiology Service Progress Note PATIENT NAME: Luís Hernandez DATE OF SERVICE: August 22, 2024 TIME: 11:53 AM PATIENT IDENTITY VERIFICATION COMPLETED USING TWO (2) IDENTIFIERS: Name and Date of confirmed by patient verbally. FALL SCREENING: Has the patient had 2 falls in the last year or 1 fall with injury or currently using an Ambulatory Assistive Device (Walker, Cane, Wheelchair, Crutches, etc.)? No PATIENT GENDER DATA: Male PATIENT RELEVANT IMPLANT DATA REVIEWED: Not Applicable PATIENT PRESENTS WITH AN IMPLANTABLE OR ATTACHED LIGHT RAIL VEHICLE OPERATOR: No RADIOLOGY DEPARTMENT: Ultrasound PERIPHERAL IV DATA: Not applicable SIGNED BY: Florian Urrutia RDMS RVShirley August 22, 2024 11:53 AM CNPN Observed: 08/18/2024 12:00 AM Status: COMPLETED Source: [facility] Telephone (INTMWS) LUÍS HERNANDEZ ([id number]) 1945 M EXC Date Time Provider Department 08/18/24 HAROLDO TAYLOR During your visit today, we recorded the following information about you: Taylor Perez RN 08/18/2024 4:23 PM Signed Patient calls back and states that he noticed blood with clots in his urine. Patient asking about urine culture results and what next steps are? Patient continues with burning with urination. Patient's asking if issues could be from colonoscopy which was about a month ago? Patient's pharmacy is [facility]. Please review and advise, JOEL Beltre Victor H, MD 08/19/2024 10:52 AM Signed ASSESSMENT/PLAN: 1. Urinary tract infection without hematuria, site unspecified - ICD9: 599.0, ICD10: N39.0 - AMOXICILLIN 875 MG TABLET - KIDNEY/BLADDER Schedule follow up with results and annual wellness visit. MD Jerry Jolley Stephanie, RN 08/19/2024 11:20 AM Signed Patient notified of results and provider's instructions. Patient verbalizes understanding. Taylor Perez RN Allergies As of Date: 08/18/2024 Noted Allergy Reaction PERCOCET (OXYCODONE-ACETAMINOPHEN)09/11/2011 5 - Intolerance Comments: Anxiety and slurred words CODEINE 07/22/2005 2 - Rash Comments: itch, nightmares VICODIN (HYDROCODONE-ACETAMINOPHE*02/22/2009 2 - Rash 9 - Itching Date Reviewed: 08/16/2024 Reviewed by: Dary Petty APRN.EVALUATOR [employer]SFER STUDENTS - Fully Assessed Reason for Visit: Results [95] Primary Visit Diagnosis:Urinary tract infection without hematuria, site unspecified [N39.0] Order(s):amoxicillin (AMOXIL) 875 mg tabletTake 1 tablet by mouth two times a day for 7 days.Disp: 14 tabletRfl: 0 KIDNEY/BLADDER [6850110] Order #: [id number] FUTURE Prescriptions as of 08/19/2024 - amoxicillin (AMOXIL) 875 mg tablet Take 1 tablet by mouth two times a day for 7 days. - cyanocobalamin 1,000 mcg/mL Inject 1 mL intramuscularly every 2 weeks. - carbidopa-levodopa (SINEMET) 25-100 mg per tablet Take one(1) tablet daily at bedtime. - docusate sodium (COLACE) 100 mg capsule Take 1 capsule by mouth two times a day. - polyethylene glycol 3350 (MIRALAX) 17 gram/dose powder Take 17 g by mouth once daily. - gabapentin (NEURONTIN) 300 mg capsule Take 1 capsule by mouth daily at bedtime for 180 days. - Syringe with Needle, Disp, (SYRINGE 3CC/25GX1) 3 mL 25 gauge x 1 For use with B12 injections - metoprolol tartrate, short acting, (LOPRESSOR) 25 mg tablet Take 0.5 tablets by mouth twice daily. CARDIOLOGY. - doxazosin (CARDURA) 2 mg tablet Take 1 tablet by mouth daily at bedtime. UROLOGY. - dutasteride (AVODART) 0.5 mg capsule Take 1 capsule by mouth once daily. UROLOGY. - multivit-mins 25-folic acid-D3 3-2,000 mg-unit tab Take by mouth. - ticagrelor (BRILINTA) 60 mg tablet Take 60 mg by mouth one time only. - pravastatin (PRAVACHOL) 40 mg tablet Take 1 tablet by mouth daily at bedtime. - magnesium oxide (MAG-OX) 400 mg (241.3 mg magnesium) tablet Take 400 mg by mouth once daily. - COMPOUNDED PRESCRIPTION Prostaglandin 30mcg/ml injectable, bimix papaverine/phentolamine 30mg/0.5mg/ml injectable for penile intracavernosal inj for ED - Melatonin 5 mg cap Take by mouth. - CALCIUM CARBONATE/VITAMIN D3 (VITAMIN D-3 ORAL) Take by mouth. - Insulin Syringe-Needle U-100 1 mL 31 gauge x 12/30 For penile intracavernosal injections for ED Problem List As Of Date 08/18/2024 Noted Resolved BPH W/O URINARY OBS/LUTS [N40.0] 07/22/2005 06/09/2007 PSA elevation [R97.20] 09/07/2006 Hypertrophy of prostate with urinary obstructio*06/09/2007 12/17/2017 Bladder neck obstruction [N32.0] 06/09/2007 07/29/2022 Chronic prostatitis [N41.1] 04/30/2009 07/29/2022 Knee pain [M25.569] 01/09/2011 12/17/2017 Umbilical hernia without mention of obstruction*06/16/2012 12/17/2017 Erectile dysfunction due to arterial insufficie*03/17/2018 10/29/2022 Urine retention [R33.9] 08/19/2019 07/29/2022 OLIVA on CPAP [G47.33] 07/29/2022 Chronic neck pain [M54.2, G89.29] 07/29/2022 Restless leg syndrome [G25.81] 07/29/2022 NSTEMI (non-ST elevated myocardial infarction) *08/29/2022 10/29/2022 Primary hypertension [I10] 08/29/2022 Hyperlipidemia [E78.5] 08/29/2022 Stented coronary artery (proximal RCA) [Z95.5] 08/29/2022 Benign prostatic hyperplasia [N40.0] 02/25/2023 Diagnosed: 02/25/2023 Hyperparathyroidism (HCC) [E21.3] 08/28/2023 Vitamin D deficiency [E55.9] 08/28/2023 Vitamin B12 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] 08/28/2023 Prescriptions ordered this encounter Disp Refills Start End AMOXICILLIN 875 MG TABLET 14 t* 0 08/19/2024 08/26/2024 Route: ORAL Sig: Take 1 tablet by mouth two times a day for 7 days. Encounter Status:Closed by TAYLOR PEREZ on 08/19/24 BACTERIA UR CULT Observed: 08/16/2024 9:36 AM Status: F Source: [facility] ORGANISM ID: 1 >=100,000 CFU/ml Escherichia coli ORGANISM ID: 1 (ESCHERICHIA COLI) ----- ----- ANTIBIOTIC INTERPRETATION [place] STATUS REFERENCE RANGE ----- ----- Ampicillin S <=2 F Susceptible <=8 , Intermediate >8 , Resistant >16 Cefazolin S <=4 F Susceptible 0-16 , Intermediate <0 or >16 , Resistant >16 For uncomplicated urinary tract infections, cefazolin results can be used to predict susceptibility or resistance to cephalexin. Ceftriaxone S <=1 F Susceptible <=1 , Intermediate >1 , Resistant >=4 Cefepime S <=1 F Susceptible <=2 , Susceptible-Dose Dependent >2 , Resistant >=16 Ertapenem S <=0.5 F Susceptible <=0.5 , Intermediate >.5 , Resistant >1 Meropenem S <=0.25 F Susceptible <=1 , Intermediate >1 , Resistant >2 Ampicillin/Sulbact S <=2 F Susceptible <=8 , Intermediate >8 , Resistant >16 Piperacillin/Tazobac S <=4 F Susceptible <16 , Susceptible-Dose Dependent >=16 , Resistant >=32 Gentamicin S <=1 F Susceptible <=2 , Intermediate >2 , Resistant >=8 Tobramycin S <=1 F Susceptible <4 , Intermediate >=4 , Resistant >=8 Trimeth sulfameth S <=20 F Susceptible <=40 , Resistant >40 Ciprofloxacin S <=0.25 F Susceptible <0.5 , Intermediate >=.5 , Resistant >=1 Nitrofurantoin S <=16 F Susceptible <=32 , Intermediate >32 , Resistant >64 Performed By: #### [id number] ### # [facility] CLIA [id number] [address] [place] [address] OF [facility] CNOV Observed: 08/16/2024 9:20 AM Status: COMPLETED Source: [facility] Office Visit (INTMWS) LUÍS HERNANDEZ ([id number]) 1945 M [facility] Date Time Provider Department 08/16/24 9:20 AM DARY PETTY INTMWS During your visit today, we recorded the following information about you: Pulse Respiration Blood pressure Weight 58/minute 14/minute 124/72 100.3 kg Dary Petty, INSTRUMENT REPAIR SPECIALIST.EVALUATOR TRANSFER STUDENTS 08/16/2024 9:46 AM Signed CC: Patient presents with: UTI: Dysuria x 3 weeks HPI Luís Hernandez is a 79 year old male who presents today for above. He was treated with Macrobid on 07/20 for E. Coli UTI. Symptoms improved but worsened again once antibiotics were completed. He was evaluated on 07/30, urine dip positive but no culture sent. He was treated with Amoxicillin based on previous culture sensitivity. He was also instructed to follow-up with his urologist. Today patient reports symptoms have improved but never resolved. Reports burning with urination, frequency and urgency. Does not think he is completely emptying his bladder. Has appointment with urologist on 09/05. Denies fever, chills, back pain, abdominal pain/pressure, hematuria, hesitancy. 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 Chronic prostatitis 04/30/2009 Elevated prostate specific antigen (PSA) Erectile dysfunction due to arterial insufficiency 03/17/2018 Essential hypertension, benign Hyperparathyroidism (HCC) 09/10/2017 Hypertrophy of prostate with urinary obstruction and other lower urinary tract symptoms (LUTS) 06/09/2007 Knee joint replacement by other means 03/12/2011 Knee pain 01/09/2011 NSTEMI (non-ST elevated myocardial infarction) (HCC) 08/29/2022 OLIVA on CPAP 07/29/2022 [facility] Restless legs syndrome (RLS) Stented coronary artery (proximal RCA) 08/29/2022 Umbilical hernia without mention of obstruction or gangrene 06/16/2012 Urine retention 08/19/2019 Vitamin B12 deficiency 09/10/2017 Vitamin D deficiency 09/10/2017 PAST SURGICAL HISTORY Procedure Laterality Date ARTHROSCOPY KNEE DIAGNOSTIC W/WO SYNOVIAL BX SPX 2003 Arthroscopy, knee ARTHROSCOPY KNEE DIAGNOSTIC W/WO SYNOVIAL BX SPX 09/2006 Arthroscopy, knee ARTHRP KNE CONDYLEANDPLATU MEDIALANDLAT COMPARTMENTS 2010 Knee replacement, total lt COLONOSCOPY 05/12/2019 in [place], repeat 3-5 years COLONOSCOPY SCREENING 2003 CORONARY STENT EA VESSEL 08/25/2022 PTCA/GIUSEPPE Prox. RCA Resolute Óscar 4 x 18 mm LAMINECTOMY,CERVICAL 07/04/2020 NASAL/SPHENOID [...] cyanocobalamin 1,000 mcg/mL Inject 1 mL intramuscularly every 2 weeks. carbidopa-levodopa (SINEMET) 25-100 mg per tablet Take one(1) tablet daily at bedtime. docusate sodium (COLACE) 100 mg capsule Take 1 capsule by mouth two times a day. metoprolol tartrate, short acting, (LOPRESSOR) 25 mg tablet Take 0.5 tablets by mouth twice daily. CARDIOLOGY. dutasteride (AVODART) 0.5 mg capsule Take 1 capsule by mouth once daily. UROLOGY. ticagrelor (BRILINTA) 60 mg tablet Take 60 mg by mouth one time only. pravastatin (PRAVACHOL) 40 mg tablet Take 1 tablet by mouth daily at bedtime. magnesium oxide (MAG-OX) 400 mg (241.3 mg magnesium) tablet Take 400 mg by mouth once daily. Melatonin 5 mg cap Take by mouth. CALCIUM CARBONATE/VITAMIN D3 (VITAMIN D-3 ORAL) Take by mouth. Insulin Syringe-Needle U-100 1 mL 31 gauge x 5/16 For penile intracavernosal injections for ED polyethylene glycol 3350 (MIRALAX) 17 gram/dose powder Take 17 g by mouth once daily. gabapentin (NEURONTIN) 300 mg capsule Take 1 capsule by mouth daily at bedtime for 180 days. Syringe with Needle, Disp, (SYRINGE 3CC/25GX1) 3 mL 25 gauge x 1 For use with B12 injections doxazosin (CARDURA) 2 mg tablet Take 1 tablet by mouth daily at bedtime. UROLOGY. multivit-mins 25-folic acid-D3 3-2,000 mg-unit tab Take by mouth. COMPOUNDED PRESCRIPTION Prostaglandin 30mcg/ml injectable, bimix papaverine/phentolamine 30mg/0.5mg/ml injectable for penile intracavernosal inj for ED FAMILY HISTORY Problem Relation Age of Onset Hypertension Mother Stroke Mother Cancer Father lung - smoker Social History Tobacco Use Smoking status: Former Current packs/day: 1.00 Types: Cigarettes Smokeless tobacco: Never Tobacco comments: Quit over 30 years ago Vaping Use Vaping status: Never Used Substance Use Topics Alcohol use: Yes Alcohol/week: 3.0 standard drinks of alcohol Types: 3 Standard drinks or equivalent per week Drug use: Never BP 124/72 Pulse (!) 58 Resp 14 Wt 100.3 kg (221 lb 1.9 oz) SpO2 98% BMI 30.84 kg/m? Physical Exam Vitals reviewed. Constitutional: Appearance: Normal appearance. Cardiovascular: Rate and Rhythm: Normal rate and regular rhythm. Pulmonary: Effort: Pulmonary effort is normal. Breath sounds: Normal breath sounds. Abdominal: General: There is no distension. Palpations: Abdomen is soft. Tenderness: There is no abdominal tenderness. There is no right CVA tenderness or left CVA tenderness. Neurological: Mental Status: He is alert. DATA REVIEWED: Most recent urine testing ASSESSMENT/PLAN: 1. Dysuria - ICD9: 788.1, ICD10: R30.0 Improved after two courses of antibiotics but never completely resolved. - UA DIP, URINE (POC) positive for small blood and trace leuks, better compared to previous. - send URINE CULTURE No clear evidence of recurrent UTI. Will hold off on antibiotics until culture has resulted. He is aware that if symptoms were to become significantly worse he should go to the ER. Prescription instructions reviewed with patient as applicable. Potential red flag symptoms discussed with the patient. Reviewed appropriate action plan to take if red flag symptoms occur. Patient agreeable to treatment plan. Dary Petty APRN.EVALUATOR TRANSFER STUDENTS Allergies As of Date: 08/16/2024 Noted Allergy Reaction PERCOCET (OXYCODONE-ACETAMINOPHEN)09/11/2011 5 - Intolerance Comments: Anxiety and slurred words CODEINE 07/22/2005 2 - Rash Comments: itch, nightmares VICODIN (HYDROCODONE-ACETAMINOPHE*02/22/2009 2 - Rash 9 - Itching Date Reviewed: 08/16/2024 Reviewed by: Dary Petty APRN.EVALUATOR TRANSFER STUDENTS - Fully Assessed Reason for Visit: UTI [116] Cmt: Dysuria x 3 weeks Primary Visit Diagnosis:Dysuria [R30.0] Order(s):UA DIP, URINE (POC) [[id number]] Order #: [id number]. #:[id number] URINE CULTURE [SQURCUL] Order #: [id number]. #:[id number] Prescriptions as of 08/16/2024 - cyanocobalamin 1,000 mcg/mL Inject 1 mL intramuscularly every 2 weeks. - carbidopa-levodopa (SINEMET) 25-100 mg per tablet Take one(1) tablet daily at bedtime. - docusate sodium (COLACE) 100 mg capsule Take 1 capsule by mouth two times a day. - polyethylene glycol 3350 (MIRALAX) 17 gram/dose powder Take 17 g by mouth once daily. - gabapentin (NEURONTIN) 300 mg capsule Take 1 capsule by mouth daily at bedtime for 180 days. - Syringe with Needle, Disp, (SYRINGE 3CC/25GX1) 3 mL 25 gauge x 1 For use with B12 injections - metoprolol tartrate, short acting, (LOPRESSOR) 25 mg tablet Take 0.5 tablets by mouth twice daily. CARDIOLOGY. - doxazosin (CARDURA) 2 mg tablet Take 1 tablet by mouth daily at bedtime. UROLOGY. - dutasteride (AVODART) 0.5 mg capsule Take 1 capsule by mouth once daily. UROLOGY. - multivit-mins 25-folic acid-D3 3-2,000 mg-unit tab Take by mouth. - ticagrelor (BRILINTA) 60 mg tablet Take 60 mg by mouth one time only. - pravastatin (PRAVACHOL) 40 mg tablet Take 1 tablet by mouth daily at bedtime. - magnesium oxide (MAG-OX) 400 mg (241.3 mg magnesium) tablet Take 400 mg by mouth once daily. - COMPOUNDED PRESCRIPTION Prostaglandin 30mcg/ml injectable, bimix papaverine/phentolamine 30mg/0.5mg/ml injectable for penile intracavernosal inj for ED - Melatonin 5 mg cap Take by mouth. - CALCIUM CARBONATE/VITAMIN D3 (VITAMIN D-3 ORAL) Take by mouth. - Insulin Syringe-Needle U-100 1 mL 31 gauge x 5/16 For penile intracavernosal injections for ED Problem List As Of Date 08/16/2024 Noted Resolved BPH W/O URINARY OBS/LUTS [N40.0] 07/22/2005 06/09/2007 PSA elevation [R97.20] 09/07/2006 Hypertrophy of prostate with urinary obstructio*06/09/2007 12/17/2017 Bladder neck obstruction [N32.0] 06/09/2007 07/29/2022 Chronic prostatitis [N41.1] 04/30/2009 07/29/2022 Knee pain [M25.569] 01/09/2011 12/17/2017 Umbilical hernia without mention of obstruction*06/16/2012 12/17/2017 Erectile dysfunction due to arterial insufficie*03/17/2018 10/29/2022 Urine retention [R33.9] 08/19/2019 07/29/2022 OLIVA on CPAP [G47.33] 07/29/2022 Chronic neck pain [M54.2, G89.29] 07/29/2022 Restless leg syndrome [G25.81] 07/29/2022 NSTEMI (non-ST elevated myocardial infarction) *08/29/2022 10/29/2022 Primary hypertension [I10] 08/29/2022 Hyperlipidemia [E78.5] 08/29/2022 Stented coronary artery (proximal RCA) [Z95.5] 08/29/2022 Benign prostatic hyperplasia [N40.0] 02/25/2023 Diagnosed: 02/25/2023 Hyperparathyroidism (HCC) [E21.3] 08/28/2023 Vitamin D deficiency [E55.9] 08/28/2023 Vitamin B12 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] 08/28/2023 Encounter Status:Closed by DARY PETTY on 08/16/24 PROGRESS Observed: 08/16/2024 9:12 AM Status: COMPLETED Source: [facility] HNO ID: [id number] Author: DARY PETTY APRN.EVALUATOR TRANSFER STUDENTS Service: ? Author Type: Nurse Practitioner Type: Progress Notes Filed: 08/16/2024 09:46 Note Text: CC: Patient presents with: UTI: Dysuria x 3 weeks HPI Luís Hernandez is a 79 year old male who presents today for above. He was treated with Macrobid on 07/20 for E. Coli UTI. Symptoms improved but worsened again once antibiotics were completed. He was evaluated on 07/30, urine dip positive but no culture sent. He was treated with Amoxicillin based on previous culture sensitivity. He was also instructed to follow-up with his urologist. Today patient reports symptoms have improved but never resolved. Reports burning with urination, frequency and urgency. Does not think he is completely emptying his bladder. Has appointment with urologist on 09/05. Denies fever, chills, back pain, abdominal pain/pressure, hematuria, hesitancy. 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 Chronic prostatitis 04/30/2009 Elevated prostate specific antigen (PSA) Erectile dysfunction due to arterial insufficiency 03/17/2018 Essential hypertension, benign Hyperparathyroidism (HCC) 09/10/2017 Hypertrophy of prostate with urinary obstruction and other lower urinary tract symptoms (LUTS) 06/09/2007 Knee joint replacement by other means 03/12/2011 Knee pain 01/09/2011 NSTEMI (non-ST elevated myocardial infarction) (HCC) 08/29/2022 OLIVA on CPAP 07/29/2022 [facility] Restless legs syndrome (RLS) Stented coronary artery (proximal RCA) 08/29/2022 Umbilical hernia without mention of obstruction or gangrene 06/16/2012 Urine retention 08/19/2019 Vitamin B12 deficiency 09/10/2017 Vitamin D deficiency 09/10/2017 PAST SURGICAL HISTORY Procedure Laterality Date ARTHROSCOPY KNEE DIAGNOSTIC W/WO SYNOVIAL BX SPX 2003 Arthroscopy, knee ARTHROSCOPY KNEE DIAGNOSTIC W/WO SYNOVIAL BX SPX 09/2006 Arthroscopy, knee ARTHRP KNE CONDYLEANDPLATU MEDIALANDLAT COMPARTMENTS 2010 Knee replacement, total lt COLONOSCOPY 05/12/2019 in [place], repeat 3-5 years COLONOSCOPY SCREENING 2003 CORONARY STENT EA VESSEL 08/25/2022 PTCA/GIUSEPPE Prox. RCA Resolute Loleta 4 x 18 mm LAMINECTOMY,CERVICAL 07/04/2020 NASAL/SPHENOID [...] cyanocobalamin 1,000 mcg/mL Inject 1 mL intramuscularly every 2 weeks. carbidopa-levodopa (SINEMET) 25-100 mg per tablet Take one(1) tablet daily at bedtime. docusate sodium (COLACE) 100 mg capsule Take 1 capsule by mouth two times a day. metoprolol tartrate, short acting, (LOPRESSOR) 25 mg tablet Take 0.5 tablets by mouth twice daily. CARDIOLOGY. dutasteride (AVODART) 0.5 mg capsule Take 1 capsule by mouth once daily. UROLOGY. ticagrelor (BRILINTA) 60 mg tablet Take 60 mg by mouth one time only. pravastatin (PRAVACHOL) 40 mg tablet Take 1 tablet by mouth daily at bedtime. magnesium oxide (MAG-OX) 400 mg (241.3 mg magnesium) tablet Take 400 mg by mouth once daily. Melatonin 5 mg cap Take by mouth. CALCIUM CARBONATE/VITAMIN D3 (VITAMIN D-3 ORAL) Take by mouth. Insulin Syringe-Needle U-100 1 mL 31 gauge x 5/16 For penile intracavernosal injections for ED polyethylene glycol 3350 (MIRALAX) 17 gram/dose powder Take 17 g by mouth once daily. gabapentin (NEURONTIN) 300 mg capsule Take 1 capsule by mouth daily at bedtime for 180 days. Syringe with Needle, Disp, (SYRINGE 3CC/25GX1) 3 mL 25 gauge x 1 For use with B12 injections doxazosin (CARDURA) 2 mg tablet Take 1 tablet by mouth daily at bedtime. UROLOGY. multivit-mins 25-folic acid-D3 3-2,000 mg-unit tab Take by mouth. COMPOUNDED PRESCRIPTION Prostaglandin 30mcg/ml injectable, bimix papaverine/phentolamine 30mg/0.5mg/ml injectable for penile intracavernosal inj for ED FAMILY HISTORY Problem Relation Age of Onset Hypertension Mother Stroke Mother Cancer Father lung - smoker Social History Tobacco Use Smoking status: Former Current packs/day: 1.00 Types: Cigarettes Smokeless tobacco: Never Tobacco comments: Quit over 30 years ago Vaping Use Vaping status: Never Used Substance Use Topics Alcohol use: Yes Alcohol/week: 3.0 standard drinks of alcohol Types: 3 Standard drinks or equivalent per week Drug use: Never BP 124/72 Pulse (!) 58 Resp 14 Wt 100.3 kg (221 lb 1.9 oz) SpO2 98% BMI 30.84 kg/m? Physical Exam Vitals reviewed. Constitutional: Appearance: Normal appearance. Cardiovascular: Rate and Rhythm: Normal rate and regular rhythm. Pulmonary: Effort: Pulmonary effort is normal. Breath sounds: Normal breath sounds. Abdominal: General: There is no distension. Palpations: Abdomen is soft. Tenderness: There is no abdominal tenderness. There is no right CVA tenderness or left CVA tenderness. Neurological: Mental Status: He is alert. DATA REVIEWED: Most recent urine testing ASSESSMENT/PLAN: 1. Dysuria - ICD9: 788.1, ICD10: R30.0 Improved after two courses of antibiotics but never completely resolved. - UA DIP, URINE (POC) positive for small blood and trace leuks, better compared to previous. - send URINE CULTURE No clear evidence of recurrent UTI. Will hold off on antibiotics until culture has resulted. He is aware that if symptoms were to become significantly worse he should go to the ER. Prescription instructions reviewed with patient as applicable. Potential red flag symptoms discussed with the patient. Reviewed appropriate action plan to take if red flag symptoms occur. Patient agreeable to treatment plan. Dary Petty APRN.EVALUATOR TRANSFER STUDENTS PROGRESS Observed: 07/30/2024 12:15 PM Status: COMPLETED [id number] Author: HAROLDO TAYLOR MD Service: ? Author Type: Physician Type: Progress Notes Filed: 07/30/2024 12:24 Note Text: This note was created using Microbondsriter. Subjective Luís Hernandez is a 79 year old male. He was seen 07/20/24 for dysuria, frequency, and urgency and treated for a urinary tract infection with nitrofurantoin for 7 days. Symptoms improved, but restarted after antibiotic finished. He sees Dr. Dunn for urology and had a routine follow up next year. He had a history of prostatitis, but not cystitis. Review of Systems Constitutional: Negative for chills, diaphoresis, fatigue and fever. Gastrointestinal: Negative for abdominal pain, nausea and vomiting. Genitourinary: Positive for decreased urine volume. Negative for difficulty urinating and hematuria. Musculoskeletal: Negative for back pain. ACTIVE PROBLEM LIST Psa Elevation Oliva On Cpap Chronic Neck Pain Restless Leg Syndrome Primary Hypertension Hyperlipidemia Stented coronary artery (proximal RCA) Benign Prostatic Hyperplasia Hyperparathyroidism (Hcc) Vitamin D Deficiency Vitamin B12 Deficiency Social History Tobacco Use Smoking status: Former Current packs/day: 1.00 Types: Cigarettes Smokeless tobacco: Never Tobacco comments: Quit over 30 years ago Vaping Use Vaping status: Never Used Substance Use Topics Alcohol use: Yes Alcohol/week: 3.0 standard drinks of alcohol Types: 3 Standard drinks or equivalent per week Drug use: Never Current Outpatient Medications Medication Sig amoxicillin (AMOXIL) 875 mg tablet Take 1 tablet by mouth two times a day for 10 days. cyanocobalamin 1,000 mcg/mL Inject 1 mL intramuscularly every 2 weeks. carbidopa-levodopa (SINEMET) 25-100 mg per tablet Take one(1) tablet daily at bedtime. docusate sodium (COLACE) 100 mg capsule Take 1 capsule by mouth two times a day. polyethylene glycol 3350 (MIRALAX) 17 gram/dose powder Take 17 g by mouth once daily. gabapentin (NEURONTIN) 300 mg capsule Take 1 capsule by mouth daily at bedtime for 180 days. Syringe with Needle, Disp, (SYRINGE 3CC/25GX1) 3 mL 25 gauge x 1 For use with B12 injections metoprolol tartrate, short acting, (LOPRESSOR) 25 mg tablet Take 0.5 tablets by mouth twice daily. CARDIOLOGY. doxazosin (CARDURA) 2 mg tablet Take 1 tablet by mouth daily at bedtime. UROLOGY. dutasteride (AVODART) 0.5 mg capsule Take 1 capsule by mouth once daily. UROLOGY. multivit-mins 25-folic acid-D3 3-2,000 mg-unit tab Take by mouth. ticagrelor (BRILINTA) 60 mg tablet Take 1 [...] facility-administered medications for this visit. Objective BP 128/80 Pulse 76 Resp 16 Wt 98.1 kg (216 lb 4.3 oz) SpO2 97% BMI 30.16 kg/m? Physical Exam Constitutional: Appearance: He is not ill-appearing. Abdominal: Palpations: Abdomen is soft. Tenderness: There is no abdominal tenderness. Hernia: No hernia is present. Genitourinary: Penis: Uncircumcised. No discharge or lesions. Testes: Right: Mass or tenderness not present. Left: Mass or tenderness not present. Assessment and Plan 1. Urinary tract infection with hematuria, site unspecified - ICD9: 599.0, 599.70, ICD10: N39.0, R31.9 acute - AMOXICILLIN 875 MG TABLET. Take one(1) tablet two(2) times daily x 10 days,. - See urology for follow up. Haroldo Taylor MD CNOV Observed: 07/30/2024 11:20 AM Status: COMPLETED Source: [facility] Office Visit (INTMWS) LUÍS HERNANDEZ ([id number]) 1945 M EXC Date Time Provider Department 07/30/24 11:20 AM HAROLDO TAYLOR INTMWS During your visit today, we recorded the following information about you: Pulse Respiration Blood pressure Weight 76/minute 16/minute 128/80 98.1 kg Haroldo Taylor MD 07/30/2024 11:[address] Dunn for follow up. Haroldo Taylor MD 07/30/2024 12:24 PM Signed This note was created using NoteWriter. Subjective Luís Hernandez is a 79 year old male. He was seen 07/20/24 for dysuria, frequency, and urgency and treated for a urinary tract infection with nitrofurantoin for 7 days. Symptoms improved, but restarted after antibiotic finished. He sees Dr. Dunn for urology and had a routine follow up next year. He had a history of prostatitis, but not cystitis. Review of Systems Constitutional: Negative for chills, diaphoresis, fatigue and fever. Gastrointestinal: Negative for abdominal pain, nausea and vomiting. Genitourinary: Positive for decreased urine volume. Negative for difficulty urinating and hematuria. Musculoskeletal: Negative for back pain. ACTIVE PROBLEM LIST Psa Elevation Oliva On Cpap Chronic Neck Pain Restless Leg Syndrome Primary Hypertension Hyperlipidemia Stented coronary artery (proximal RCA) Benign Prostatic Hyperplasia Hyperparathyroidism (Hcc) Vitamin D Deficiency Vitamin B12 Deficiency Social History Tobacco Use Smoking status: Former Current packs/day: 1.00 Types: Cigarettes Smokeless tobacco: Never Tobacco comments: Quit over 30 years ago Vaping Use Vaping status: Never Used Substance Use Topics Alcohol use: Yes Alcohol/week: 3.0 standard drinks of alcohol Types: 3 Standard drinks or equivalent per week Drug use: Never Current Outpatient Medications Medication Sig amoxicillin (AMOXIL) 875 mg tablet Take 1 tablet by mouth two times a day for 10 days. cyanocobalamin 1,000 mcg/mL Inject 1 mL intramuscularly every 2 weeks. carbidopa-levodopa (SINEMET) 25-100 mg per tablet Take one(1) tablet daily at bedtime. docusate sodium (COLACE) 100 mg capsule Take 1 capsule by mouth two times a day. polyethylene glycol 3350 (MIRALAX) 17 gram/dose powder Take 17 g by mouth once daily. gabapentin (NEURONTIN) 300 mg capsule Take 1 capsule by mouth daily at bedtime for 180 days. Syringe with Needle, Disp, (SYRINGE 3CC/25GX1) 3 mL 25 gauge x 1 For use with B12 injections metoprolol tartrate, short acting, (LOPRESSOR) 25 mg tablet Take 0.5 tablets by mouth twice daily. CARDIOLOGY. doxazosin (CARDURA) 2 mg tablet Take 1 tablet by mouth daily at bedtime. UROLOGY. dutasteride (AVODART) 0.5 mg capsule Take 1 capsule by mouth once daily. UROLOGY. multivit-mins 25-folic acid-D3 3-2,000 mg-unit tab Take by mouth. ticagrelor (BRILINTA) 60 mg tablet Take 1 [...] facility-administered medications for this visit. Objective BP 128/80 Pulse 76 Resp 16 Wt 98.1 kg (216 lb 4.3 oz) SpO2 97% BMI 30.16 kg/m? Physical Exam Constitutional: Appearance: He is not ill-appearing. Abdominal: Palpations: Abdomen is soft. Tenderness: There is no abdominal tenderness. Hernia: No hernia is present. Genitourinary: Penis: Uncircumcised. No discharge or lesions. Testes: Right: Mass or tenderness not present. Left: Mass or tenderness not present. Assessment and Plan 1. Urinary tract infection with hematuria, site unspecified - ICD9: 599.0, 599.70, ICD10: N39.0, R31.9 acute - AMOXICILLIN 875 MG TABLET. Take one(1) tablet two(2) times daily x 10 days,. - See urology for follow up. Haroldo Taylor MD Allergies As of Date: 07/30/2024 Noted Allergy Reaction PERCOCET (OXYCODONE-ACETAMINOPHEN)09/11/2011 5 - Intolerance Comments: Anxiety and slurred words CODEINE 07/22/2005 2 - Rash Comments: itch, nightmares VICODIN (HYDROCODONE-ACETAMINOPHE*02/22/2009 2 - Rash 9 - Itching Date Reviewed: 07/30/2024 Reviewed by: Kalie Harrison MA - Fully Assessed Reason for Visit: Recheck [92] Cmt: Follow up UTI, still having symptoms Primary Visit Diagnosis:Urinary tract infection with hematuria, site unspecified [N39.0, R31.9] Order(s):UA DIP, URINE (POC) [[id number]] Order #: [id number]. #:[id number] amoxicillin (AMOXIL) 875 mg tabletTake 1 tablet by mouth two times a day for 10 days.Disp: 20 tabletRfl: 0 Prescriptions as of 07/30/2024 - amoxicillin (AMOXIL) 875 mg tablet Take 1 tablet by mouth two times a day for 10 days. - cyanocobalamin 1,000 mcg/mL Inject 1 mL intramuscularly every 2 weeks. - carbidopa-levodopa (SINEMET) 25-100 mg per tablet Take one(1) tablet daily at bedtime. - docusate sodium (COLACE) 100 mg capsule Take 1 capsule by mouth two times a day. - polyethylene glycol 3350 (MIRALAX) 17 gram/dose powder Take 17 g by mouth once daily. - gabapentin (NEURONTIN) 300 mg capsule Take 1 capsule by mouth daily at bedtime for 180 days. - Syringe with Needle, Disp, (SYRINGE 3CC/25GX1) 3 mL 25 gauge x 1 For use with B12 injections - metoprolol tartrate, short acting, (LOPRESSOR) 25 mg tablet Take 0.5 tablets by mouth twice daily. CARDIOLOGY. - doxazosin (CARDURA) 2 mg tablet Take 1 tablet by mouth daily at bedtime. UROLOGY. - dutasteride (AVODART) 0.5 mg capsule Take 1 capsule by mouth once daily. UROLOGY. - multivit-mins 25-folic acid-D3 3-2,000 mg-unit tab Take by mouth. - ticagrelor (BRILINTA) 60 mg tablet Take 1 tablet by mouth twice daily. - pravastatin (PRAVACHOL) 40 mg tablet Take 1 tablet by mouth daily at bedtime. - magnesium oxide (MAG-OX) 400 mg (241.3 mg magnesium) tablet Take 400 mg by mouth once daily. - COMPOUNDED PRESCRIPTION Prostaglandin 30mcg/ml injectable, bimix papaverine/phentolamine 30mg/0.5mg/ml injectable for penile intracavernosal inj for ED - Melatonin 5 mg cap Take by mouth. - CALCIUM CARBONATE/VITAMIN D3 (VITAMIN D-3 ORAL) Take by mouth. - Insulin Syringe-Needle U-100 1 mL 31 gauge x 5/16 For penile intracavernosal injections for ED Problem List As Of Date 07/30/2024 Noted Resolved BPH W/O URINARY OBS/LUTS [N40.0] 07/22/2005 06/09/2007 PSA elevation [R97.20] 09/07/2006 Hypertrophy of prostate with urinary obstructio*06/09/2007 12/17/2017 Bladder neck obstruction [N32.0] 06/09/2007 07/29/2022 Chronic prostatitis [N41.1] 04/30/2009 07/29/2022 Knee pain [M25.569] 01/09/2011 12/17/2017 Umbilical hernia without mention of obstruction*06/16/2012 12/17/2017 Erectile dysfunction due to arterial insufficie*03/17/2018 10/29/2022 Urine retention [R33.9] 08/19/2019 07/29/2022 OLIVA on CPAP [G47.33] 07/29/2022 Chronic neck pain [M54.2, G89.29] 07/29/2022 Restless leg syndrome [G25.81] 07/29/2022 NSTEMI (non-ST elevated myocardial infarction) *08/29/2022 10/29/2022 Primary hypertension [I10] 08/29/2022 Hyperlipidemia [E78.5] 08/29/2022 Stented coronary artery (proximal RCA) [Z95.5] 08/29/2022 Benign prostatic hyperplasia [N40.0] 02/25/2023 Diagnosed: 02/25/2023 Hyperparathyroidism (HCC) [E21.3] 08/28/2023 Vitamin D deficiency [E55.9] 08/28/2023 Vitamin B12 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] 08/28/2023 Other instructions from your clinician: See Dr. Dunn for follow up. Prescriptions ordered this encounter Disp Refills Start End AMOXICILLIN 875 MG TABLET 20 t* 0 07/30/2024 08/09/2024 Route: ORAL Sig: Take 1 tablet by mouth two times a day for 10 days. Level of Service: OFFICE/OUTPATIENT ESTABLISHED LOW MDM 20 MIN [45841] Additional E/M codes: VISIT CPLX INHERENT EANDM ASSOC WITH MED * Disposition: Return if symptoms worsen or fail to improve. Follow-up and Disposition History for Encounter Date Provider Department Center 07/30/2024 [id number] TAYLOR INTMWS [facility] Dannielle Encounter Status:Closed by HAROLDO TAYLOR on 07/30/24 BACTERIA UR CULT Observed: 07/20/2024 9:42 AM Status: F Source: [facility] ORGANISM ID: 1 >=100,000 CFU/ml Escherichia coli ORGANISM ID: 1 (ESCHERICHIA COLI) ----- ----- ANTIBIOTIC INTERPRETATION [place] STATUS REFERENCE RANGE ----- ----- Ampicillin S <=2 F Susceptible <=8 , Intermediate >8 , Resistant >16 Cefazolin S <=4 F Susceptible 0-16 , Intermediate <0 or >16 , Resistant >16 For uncomplicated urinary tract infections, cefazolin results can be used to predict susceptibility or resistance to cephalexin. Ceftriaxone S <=1 F Susceptible <=1 , Intermediate >1 , Resistant >=4 Cefepime S <=1 F Susceptible <=2 , Susceptible-Dose Dependent >2 , Resistant >=16 Ertapenem S <=0.5 F Susceptible <=0.5 , Intermediate >.5 , Resistant >1 Meropenem S <=0.25 F Susceptible <=1 , Intermediate >1 , Resistant >2 Ampicillin/Sulbact S <=2 F Susceptible <=8 , Intermediate >8 , Resistant >16 Piperacillin/Tazobac S <=4 F Susceptible <16 , Susceptible-Dose Dependent >=16 , Resistant >=32 Gentamicin S <=1 F Susceptible <=2 , Intermediate >2 , Resistant >=8 Tobramycin S <=1 F Susceptible <4 , Intermediate >=4 , Resistant >=8 Trimeth sulfameth S <=20 F Susceptible <=40 , Resistant >40 Ciprofloxacin S <=0.25 F Susceptible <0.5 , Intermediate >=.5 , Resistant >=1 Nitrofurantoin S <=16 F Susceptible <=32 , Intermediate >32 , Resistant >64 Performed By: #### [id number] ### # [facility] CLIA [id number] [address] [place] [address] OF [facility] PROGRESS Observed: 07/20/2024 9:13 AM Status: COMPLETED Source: [facility] HNO ID: [id number] Author: DARY PETTY APRN.EVALUATOR TRANSFER STUDENTS Service: ? Author Type: Nurse Practitioner Type: Progress Notes Filed: 07/20/2024 09:32 Note Text: CC: Patient presents with: UTI: Dysuria x HPI Luís Hernandez is a 79 year old male who presents with complaint of possible UTI. These symptoms have been present for three days. Associated symptoms: burning, urgency, and frequency Denies: backpain, hematuria, pressure, fever, chills, abdominal pain, and flank pain Treatments: increasing his fluids PMH: BPH. 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 Chronic prostatitis 04/30/2009 Elevated prostate specific antigen (PSA) Erectile dysfunction due to arterial insufficiency 03/17/2018 Essential hypertension, benign Hyperparathyroidism (HCC) 09/10/2017 Hypertrophy of prostate with urinary obstruction and other lower urinary tract symptoms (LUTS) 06/09/2007 Knee joint replacement by other means 03/12/2011 Knee pain 01/09/2011 NSTEMI (non-ST elevated myocardial infarction) (HCC) 08/29/2022 OLIVA on CPAP 07/29/2022 [facility] Restless legs syndrome (RLS) Stented coronary artery (proximal RCA) 08/29/2022 Umbilical hernia without mention of obstruction or gangrene 06/16/2012 Urine retention 08/19/2019 Vitamin B12 deficiency 09/10/2017 Vitamin D deficiency 09/10/2017 PAST SURGICAL HISTORY Procedure Laterality Date ARTHROSCOPY KNEE DIAGNOSTIC W/WO SYNOVIAL BX SPX 2003 Arthroscopy, knee ARTHROSCOPY KNEE DIAGNOSTIC W/WO SYNOVIAL BX SPX 09/2006 Arthroscopy, knee ARTHRP KNE CONDYLEANDPLATU MEDIALANDLAT COMPARTMENTS 2010 Knee replacement, total lt COLONOSCOPY 05/12/2019 in [place], repeat 3-5 years COLONOSCOPY SCREENING 2003 CORONARY STENT EA VESSEL 08/25/2022 PTCA/GIUSEPPE Prox. RCA Resolute Loleta 4 x 18 mm LAMINECTOMY,CERVICAL 07/04/2020 NASAL/SPHENOID [...] cyanocobalamin 1,000 mcg/mL Inject 1 mL intramuscularly every 2 weeks. carbidopa-levodopa (SINEMET) 25-100 mg per tablet Take one(1) tablet daily at bedtime. docusate sodium (COLACE) 100 mg capsule Take 1 capsule by mouth two times a day. polyethylene glycol 3350 (MIRALAX) 17 gram/dose powder Take 17 g by mouth once daily. Syringe with Needle, Disp, (SYRINGE 3CC/25GX1) 3 mL 25 gauge x 1 For use with B12 injections metoprolol tartrate, short acting, (LOPRESSOR) 25 mg tablet Take 0.5 tablets by mouth twice daily. CARDIOLOGY. doxazosin (CARDURA) 2 mg tablet Take 1 tablet by mouth daily at bedtime. UROLOGY. dutasteride (AVODART) 0.5 mg capsule Take 1 capsule by mouth once daily. UROLOGY. multivit-mins 25-folic acid-D3 3-2,000 mg-unit tab Take by mouth. ticagrelor (BRILINTA) 60 mg tablet Take 1 [...] Take 1 capsule by mouth daily at bedtime for 180 days. FAMILY HISTORY Problem Relation Age of Onset Hypertension Mother Stroke Mother Cancer Father lung - smoker Social History Tobacco Use Smoking status: Former Current packs/day: 1.00 Types: Cigarettes Smokeless tobacco: Never Tobacco comments: Quit over 30 years ago Vaping Use Vaping status: Never Used Substance Use Topics Alcohol use: Yes Alcohol/week: 3.0 standard drinks of alcohol Types: 3 Standard drinks or equivalent per week Drug use: Never BP 137/96 Pulse 73 Temp 36.9 ?C (98.4 ?F) (Temporal) Resp 16 Wt 100 kg (220 lb 7.4 oz) BMI 30.75 kg/m? Physical Exam Vitals reviewed. Constitutional: Appearance: Normal appearance. He is not ill-appearing. Cardiovascular: Rate and Rhythm: Normal rate and regular rhythm. Pulmonary: Effort: Pulmonary effort is normal. Breath sounds: Normal breath sounds. Abdominal: Palpations: Abdomen is soft. There is no mass. Tenderness: There is no abdominal tenderness. There is no right CVA tenderness or left CVA tenderness. Skin: General: Skin is warm and dry. Neurological: Mental Status: He is alert. DATA REVIEWED: Most recent labs ASSESSMENT/PLAN: 1. Dysuria - ICD9: 788.1, ICD10: R30.0 - UA DIP, URINE (POC) positive for small leuks, nitrites, moderate blood and 100 protein - send URINE CULTURE - will treat presumptively with Macrobid 100 mg BID x 7 days - follow-up in 2-3 days if symptoms persist or sooner if worsening Prescription instructions reviewed with patient as applicable. Potential red flag symptoms discussed with the patient. Reviewed appropriate action plan to take if red flag symptoms occur. Patient agreeable to treatment plan. Dary Petty APRN.EVALUATOR TRANSFER STUDENTS CNOV Observed: 07/20/2024 9:00 AM Status: COMPLETED Source: [facility] Office Visit (INTMWS) LUÍS HERNANDEZ ([id number]) 1945 M EXC Date Time Provider Department 07/20/24 9:00 AM DARY PETTY INTMWS During your visit today, we recorded the following information about you: Temperature Pulse Respiration Blood pressure 98.4 degrees 73/minute 16/minute 137/96 Weight 100 kg Dary Petty, BERTA.EVALUATOR TRANSFER STUDENTS 07/20/2024 9:32 AM Signed CC: Patient presents with: UTI: Dysuria x HPI Luís Hernandez is a 79 year old male who presents with complaint of possible UTI. These symptoms have been present for three days. Associated symptoms: burning, urgency, and frequency Denies: backpain, hematuria, pressure, fever, chills, abdominal pain, and flank pain Treatments: increasing his fluids PMH: BPH. 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 Chronic prostatitis 04/30/2009 Elevated prostate specific antigen (PSA) Erectile dysfunction due to arterial insufficiency 03/17/2018 Essential hypertension, benign Hyperparathyroidism (HCC) 09/10/2017 Hypertrophy of prostate with urinary obstruction and other lower urinary tract symptoms (LUTS) 06/09/2007 Knee joint replacement by other means 03/12/2011 Knee pain 01/09/2011 NSTEMI (non-ST elevated myocardial infarction) (HCC) 08/29/2022 OLIVA on CPAP 07/29/2022 [facility] Restless legs syndrome (RLS) Stented coronary artery (proximal RCA) 08/29/2022 Umbilical hernia without mention of obstruction or gangrene 06/16/2012 Urine retention 08/19/2019 Vitamin B12 deficiency 09/10/2017 Vitamin D deficiency 09/10/2017 PAST SURGICAL HISTORY Procedure Laterality Date ARTHROSCOPY KNEE DIAGNOSTIC W/WO SYNOVIAL BX SPX 2003 Arthroscopy, knee ARTHROSCOPY KNEE DIAGNOSTIC W/WO SYNOVIAL BX SPX 09/2006 Arthroscopy, knee ARTHRP KNE CONDYLEANDPLATU MEDIALANDLAT COMPARTMENTS 2010 Knee replacement, total lt COLONOSCOPY 05/12/2019 in [place], repeat 3-5 years COLONOSCOPY SCREENING 2003 CORONARY STENT EA VESSEL 08/25/2022 PTCA/GIUSEPPE Prox. RCA Resolute Loleta 4 x 18 mm LAMINECTOMY,CERVICAL 07/04/2020 NASAL/SPHENOID [...] cyanocobalamin 1,000 mcg/mL Inject 1 mL intramuscularly every 2 weeks. carbidopa-levodopa (SINEMET) 25-100 mg per tablet Take one(1) tablet daily at bedtime. docusate sodium (COLACE) 100 mg capsule Take 1 capsule by mouth two times a day. polyethylene glycol 3350 (MIRALAX) 17 gram/dose powder Take 17 g by mouth once daily. Syringe with Needle, Disp, (SYRINGE 3CC/25GX1) 3 mL 25 gauge x 1 For use with B12 injections metoprolol tartrate, short acting, (LOPRESSOR) 25 mg tablet Take 0.5 tablets by mouth twice daily. CARDIOLOGY. doxazosin (CARDURA) 2 mg tablet Take 1 tablet by mouth daily at bedtime. UROLOGY. dutasteride (AVODART) 0.5 mg capsule Take 1 capsule by mouth once daily. UROLOGY. multivit-mins 25-folic acid-D3 3-2,000 mg-unit tab Take by mouth. ticagrelor (BRILINTA) 60 mg tablet Take 1 [...] Take 1 capsule by mouth daily at bedtime for 180 days. FAMILY HISTORY Problem Relation Age of Onset Hypertension Mother Stroke Mother Cancer Father lung - smoker Social History Tobacco Use Smoking status: Former Current packs/day: 1.00 Types: Cigarettes Smokeless tobacco: Never Tobacco comments: Quit over 30 years ago Vaping Use Vaping status: Never Used Substance Use Topics Alcohol use: Yes Alcohol/week: 3.0 standard drinks of alcohol Types: 3 Standard drinks or equivalent per week Drug use: Never BP 137/96 Pulse 73 Temp 36.9 ?C (98.4 ?F) (Temporal) Resp 16 Wt 100 kg (220 lb 7.4 oz) BMI 30.75 kg/m? Physical Exam Vitals reviewed. Constitutional: Appearance: Normal appearance. He is not ill-appearing. Cardiovascular: Rate and Rhythm: Normal rate and regular rhythm. Pulmonary: Effort: Pulmonary effort is normal. Breath sounds: Normal breath sounds. Abdominal: Palpations: Abdomen is soft. There is no mass. Tenderness: There is no abdominal tenderness. There is no right CVA tenderness or left CVA tenderness. Skin: General: Skin is warm and dry. Neurological: Mental Status: He is alert. DATA REVIEWED: Most recent labs ASSESSMENT/PLAN: 1. Dysuria - ICD9: 788.1, ICD10: R30.0 - UA DIP, URINE (POC) positive for small leuks, nitrites, moderate blood and 100 protein - send URINE CULTURE - will treat presumptively with Macrobid 100 mg BID x 7 days - follow-up in 2-3 days if symptoms persist or sooner if worsening Prescription instructions reviewed with patient as applicable. Potential red flag symptoms discussed with the patient. Reviewed appropriate action plan to take if red flag symptoms occur. Patient agreeable to treatment plan. Dary Petty APRN.Dary Tena APRN.[facility] 07/20/2024 9:18 AM Signed URINARY TRACT INFECTION GENERAL INFORMATION: A urinary tract infection (UTI) is an infection of the bladder or kidneys. A bladder infection, called cystitis, is the more common type. If the infection travels up to the kidneys, it is called pyelonephritis. This can be more serious. INSTRUCTIONS: 1. Take antibiotic exactly as directed. Be sure to take all the medication prescribed, even if your symptoms disappear. If you stop treatment early, the infection may not be fully treated and the symptoms could come back again. 2. Get plenty of rest. You may take acetaminophen for fever and aches. 3. Drink 6 to 8 glasses of fluids, especially water, every day. This helps wash out germs from your urinary tract. Cranberry juice or other sources of vitamin C are also good for you. 4. Urinate often, as soon as you feel the urge. Empty your bladder completely. CALL OFFICE IF: 1. You have a temperature over 102F (38.8C) after 48 hours on medication. 2. You notice blood in your urine. 3. Your symptoms don't improve in 2 days. 4. You develop nausea, vomiting, diarrhea, or a rash. 5. You develop new or unexplained symptoms. These may be related to the medication you are taking. 6. Your symptoms return after you finish treatment. Allergies As of Date: 07/20/2024 Noted Allergy Reaction PERCOCET (OXYCODONE-ACETAMINOPHEN)09/11/2011 5 - Intolerance Comments: Anxiety and slurred words CODEINE 07/22/2005 2 - Rash Comments: itch, nightmares VICODIN (HYDROCODONE-ACETAMINOPHE*02/22/2009 2 - Rash 9 - Itching Date Reviewed: 07/20/2024 Reviewed by: Dary Petty APRN.EVALUATOR TRANSFER STUDENTS - Fully Assessed Reason for Visit: UTI [116] Cmt: Dysuria x Primary Visit Diagnosis:Dysuria [R30.0] Order(s):UA DIP, URINE (POC) [[id number]] Order #: [id number]. #:[id number] nitrofurantoin monohydrate and macrocrystal (MACROBID) 100 mg capsuleTake 1 capsule by mouth two times a day with meals for 7 days.Disp: 14 capsuleRfl: 0 URINE CULTURE [SQURCUL] Order #: [id number]. #:[id number] Prescriptions as of 07/24/2024 - nitrofurantoin monohydrate and macrocrystal (MACROBID) 100 mg capsule Take 1 capsule by mouth two times a day with meals for 7 days. - cyanocobalamin 1,000 mcg/mL Inject 1 mL intramuscularly every 2 weeks. - carbidopa-levodopa (SINEMET) 25-100 mg per tablet Take one(1) tablet daily at bedtime. - docusate sodium (COLACE) 100 mg capsule Take 1 capsule by mouth two times a day. - polyethylene glycol 3350 (MIRALAX) 17 gram/dose powder Take 17 g by mouth once daily. - gabapentin (NEURONTIN) 300 mg capsule Take 1 capsule by mouth daily at bedtime for 180 days. - Syringe with Needle, Disp, (SYRINGE 3CC/25GX1) 3 mL 25 gauge x 1 For use with B12 injections - metoprolol tartrate, short acting, (LOPRESSOR) 25 mg tablet Take 0.5 tablets by mouth twice daily. CARDIOLOGY. - doxazosin (CARDURA) 2 mg tablet Take 1 tablet by mouth daily at bedtime. UROLOGY. - dutasteride (AVODART) 0.5 mg capsule Take 1 capsule by mouth once daily. UROLOGY. - multivit-mins 25-folic acid-D3 3-2,000 mg-unit tab Take by mouth. - ticagrelor (BRILINTA) 60 mg tablet Take 1 tablet by mouth twice daily. - pravastatin (PRAVACHOL) 40 mg tablet Take 1 tablet by mouth daily at bedtime. - magnesium oxide (MAG-OX) 400 mg (241.3 mg magnesium) tablet Take 400 mg by mouth once daily. - COMPOUNDED PRESCRIPTION Prostaglandin 30mcg/ml injectable, bimix papaverine/phentolamine 30mg/0.5mg/ml injectable for penile intracavernosal inj for ED - Melatonin 5 mg cap Take by mouth. - CALCIUM CARBONATE/VITAMIN D3 (VITAMIN D-3 ORAL) Take by mouth. - Insulin Syringe-Needle U-100 1 mL 31 gauge x 5/16 For penile intracavernosal injections for ED Problem List As Of Date 07/20/2024 Noted Resolved BPH W/O URINARY OBS/LUTS [N40.0] 07/22/2005 06/09/2007 PSA elevation [R97.20] 09/07/2006 Hypertrophy of prostate with urinary obstructio*06/09/2007 12/17/2017 Bladder neck obstruction [N32.0] 06/09/2007 07/29/2022 Chronic prostatitis [N41.1] 04/30/2009 07/29/2022 Knee pain [M25.569] 01/09/2011 12/17/2017 Umbilical hernia without mention of obstruction*06/16/2012 12/17/2017 Erectile dysfunction due to arterial insufficie*03/17/2018 10/29/2022 Urine retention [R33.9] 08/19/2019 07/29/2022 OLIVA on CPAP [G47.33] 07/29/2022 Chronic neck pain [M54.2, G89.29] 07/29/2022 Restless leg syndrome [G25.81] 07/29/2022 NSTEMI (non-ST elevated myocardial infarction) *08/29/2022 10/29/2022 Primary hypertension [I10] 08/29/2022 Hyperlipidemia [E78.5] 08/29/2022 Stented coronary artery (proximal RCA) [Z95.5] 08/29/2022 Benign prostatic hyperplasia [N40.0] 02/25/2023 Diagnosed: 02/25/2023 Hyperparathyroidism (HCC) [E21.3] 08/28/2023 Vitamin D deficiency [E55.9] 08/28/2023 Vitamin B12 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] 08/28/2023 Other instructions from your clinician: URINARY TRACT INFECTION GENERAL INFORMATION: A urinary tract infection (UTI) is an infection of the bladder or kidneys. A bladder infection, called cystitis, is the more common type. If the infection travels up to the kidneys, it is called pyelonephritis. This can be more serious. INSTRUCTIONS: 1. Take antibiotic exactly as directed. Be sure to take all the medication prescribed, even if your symptoms disappear. If you stop treatment early, the infection may not be fully treated and the symptoms could come back again. 2. Get plenty of rest. You may take acetaminophen for fever and aches. 3. Drink 6 to 8 glasses of fluids, especially water, every day. This helps wash out germs from your urinary tract. Cranberry juice or other sources of vitamin C are also good for you. 4. Urinate often, as soon as you feel the urge. Empty your bladder completely. CALL OFFICE IF: 1. You have a temperature over 102F (38.8C) after 48 hours on medication. 2. You notice blood in your urine. 3. Your symptoms don't improve in 2 days. 4. You develop nausea, vomiting, diarrhea, or a rash. 5. You develop new or unexplained symptoms. These may be related to the medication you are taking. 6. Your symptoms return after you finish treatment. Prescriptions ordered this encounter Disp Refills Start End NITROFURANTOIN MONOHYDRATE AND MACROCR* 14 c* 0 07/20/2024 07/27/2024 Route: ORAL Sig: Take 1 capsule by mouth two times a day with meals for 7 days. Encounter Status:Closed by DARY PETTY on 07/20/24 PROGRESS Observed: 07/11/2024 12:08 PM Status: COMPLETED Source: [facility] HNO ID: [id number] Author: JIGAR SEALS MA Service: ? Author Type: Disaster Or Damage Control Specialist Type: Progress Notes Filed: 07/11/2024 12:09 Note Text: POPULATION HEALTH NAVIGATION OUTREACH Action/FYI msg to schedule wellness, follow up, influenza Reason for Outreach Care Gap/HCC or Scheduling Wellness Visits Care Gaps due: Medicare Annual Wellness Visit Follow-up Appointment Flu Vaccine Patient Contacted: Unable or unnecessary to reach patient: Unable to leave message [employer] message sent Navigation Signature: Jigar Seals MA July 11, 2024 12:09 PM CNPTOUTREACH Observed: 07/11/2024 12:00 AM Status: COMPLETED Source: [facility] Patient Outreach (NETNAV) LUÍS HERNANDEZ ([id number]) 1945 M EXC Date Time Provider Department 07/11/24 JIGAR SEALS During your visit today, we recorded the following information about you: Jigar Seals MA 07/11/2024 12:09 PM Signed POPULATION HEALTH NAVIGATION OUTREACH Action/FYI msg to schedule wellness, follow up, influenza Reason for Outreach Care Gap/HCC or Scheduling Wellness Visits Care Gaps due: Medicare Annual Wellness Visit Follow-up Appointment Flu Vaccine Patient Contacted: Unable or unnecessary to reach patient: Unable to leave message [email or web address] sent Navigation Signature: Jigar Seals MA July 11, 2024 12:09 PM Allergies As of Date: 07/11/2024 Noted Allergy Reaction PERCOCET (OXYCODONE-ACETAMINOPHEN)09/11/2011 5 - Intolerance Comments: Anxiety and slurred words CODEINE 07/22/2005 2 - Rash Comments: itch, nightmares VICODIN (HYDROCODONE-ACETAMINOPHE*02/22/2009 2 - Rash 9 - Itching Date Reviewed: 10/20/2023 Reviewed by: Jamee Tena RN - Fully Assessed Reason for Visit: Population Health Navigation Outreach [3910] Cmt: Abajunaid delfina dannielle Prescriptions as of 07/11/2024 - cyanocobalamin 1,000 mcg/mL Inject 1 mL intramuscularly every 2 weeks. - carbidopa-levodopa (SINEMET) 25-100 mg per tablet Take one(1) tablet daily at bedtime. - docusate sodium (COLACE) 100 mg capsule Take 1 capsule by mouth two times a day. - polyethylene glycol 3350 (MIRALAX) 17 gram/dose powder Take 17 g by mouth once daily. - gabapentin (NEURONTIN) 300 mg capsule Take 1 capsule by mouth daily at bedtime for 180 days. - Syringe with Needle, Disp, (SYRINGE 3CC/25GX1) 3 mL 25 gauge x 1 For use with B12 injections - metoprolol tartrate, short acting, (LOPRESSOR) 25 mg tablet Take 0.5 tablets by mouth twice daily. CARDIOLOGY. - doxazosin (CARDURA) 2 mg tablet Take 1 tablet by mouth daily at bedtime. UROLOGY. - dutasteride (AVODART) 0.5 mg capsule Take 1 capsule by mouth once daily. UROLOGY. - multivit-mins 25-folic acid-D3 3-2,000 mg-unit tab Take by mouth. - ticagrelor (BRILINTA) 60 mg tablet Take 1 tablet by mouth twice daily. - pravastatin (PRAVACHOL) 40 mg tablet Take 1 tablet by mouth daily at bedtime. - magnesium oxide (MAG-OX) 400 mg (241.3 mg magnesium) tablet Take 400 mg by mouth once daily. - COMPOUNDED PRESCRIPTION Prostaglandin 30mcg/ml injectable, bimix papaverine/phentolamine 30mg/0.5mg/ml injectable for penile intracavernosal inj for ED - Melatonin 5 mg cap Take by mouth. - CALCIUM CARBONATE/VITAMIN D3 (VITAMIN D-3 ORAL) Take by mouth. - Insulin Syringe-Needle U-100 1 mL 31 gauge x 5/16 For penile intracavernosal injections for ED Problem List As Of Date 07/11/2024 Noted Resolved BPH W/O URINARY OBS/LUTS [N40.0] 07/22/2005 06/09/2007 PSA elevation [R97.20] 09/07/2006 Hypertrophy of prostate with urinary obstructio*06/09/2007 12/17/2017 Bladder neck obstruction [N32.0] 06/09/2007 07/29/2022 Chronic prostatitis [N41.1] 04/30/2009 07/29/2022 Knee pain [M25.569] 01/09/2011 12/17/2017 Umbilical hernia without mention of obstruction*06/16/2012 12/17/2017 Erectile dysfunction due to arterial insufficie*03/17/2018 10/29/2022 Urine retention [R33.9] 08/19/2019 07/29/2022 OLIVA on CPAP [G47.33] 07/29/2022 Chronic neck pain [M54.2, G89.29] 07/29/2022 Restless leg syndrome [G25.81] 07/29/2022 NSTEMI (non-ST elevated myocardial infarction) *08/29/2022 10/29/2022 Primary hypertension [I10] 08/29/2022 Hyperlipidemia [E78.5] 08/29/2022 Stented coronary artery (proximal RCA) [Z95.5] 08/29/2022 Benign prostatic hyperplasia [N40.0] 02/25/2023 Diagnosed: 02/25/2023 Hyperparathyroidism (HCC) [E21.3] 08/28/2023 Vitamin D deficiency [E55.9] 08/28/2023 Vitamin B12 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] 08/28/2023 Encounter Status:Closed by JIGAR SEALS on 07/11/24 MICHELLEN Observed: 06/01/2024 12:00 AM Status: COMPLETED Source: [facility] Telephone (INTMWS) LUÍS HERNANDEZ ([id number]) 1945 M EXC Date Time Provider Department 06/01/24 HAROLDO TAYLOR INTMWS During your visit today, we recorded the following information about you: Joceline Castro LPN 06/01/2024 8:54 AM Signed Patient calling, would like a recommendation on for a planning specialist. States he has been having middle back pain for 1 month and would like to see someone. Please advise. Haroldo Taylor MD 06/01/2024 9:37 AM Signed Schedule appointment here first for evaluation. Isaias Ivey RN 06/01/2024 1:37 PM Signed Spoke with patient. Given message from provider's office. Patient verbalizes understanding. Appointment scheduled. Isaias Ivey RN Allergies As of Date: 06/01/2024 Noted Allergy Reaction PERCOCET (OXYCODONE-ACETAMINOPHEN)09/11/2011 5 - Intolerance Comments: Anxiety and slurred words CODEINE 07/22/2005 2 - Rash Comments: itch, nightmares VICODIN (HYDROCODONE-ACETAMINOPHE*02/22/2009 2 - Rash 9 - Itching Date Reviewed: 10/20/2023 Reviewed by: Jamee Tena, JOEL - Fully Assessed Reason for Visit: Consult [502] Prescriptions as of 06/01/2024 - cyanocobalamin 1,000 mcg/mL Inject 1 mL intramuscularly every 2 weeks. - carbidopa-levodopa (SINEMET) 25-100 mg per tablet Take one(1) tablet daily at bedtime. - docusate sodium (COLACE) 100 mg capsule Take 1 capsule by mouth two times a day. - polyethylene glycol 3350 (MIRALAX) 17 gram/dose powder Take 17 g by mouth once daily. - gabapentin (NEURONTIN) 300 mg capsule Take 1 capsule by mouth daily at bedtime for 180 days. - Syringe with Needle, Disp, (SYRINGE 3CC/25GX1) 3 mL 25 gauge x 1 For use with B12 injections - metoprolol tartrate, short acting, (LOPRESSOR) 25 mg tablet Take 0.5 tablets by mouth twice daily. CARDIOLOGY. - doxazosin (CARDURA) 2 mg tablet Take 1 tablet by mouth daily at bedtime. UROLOGY. - dutasteride (AVODART) 0.5 mg capsule Take 1 capsule by mouth once daily. UROLOGY. - multivit-mins 25-folic acid-D3 3-2,000 mg-unit tab Take by mouth. - ticagrelor (BRILINTA) 60 mg tablet Take 1 tablet by mouth twice daily. - pravastatin (PRAVACHOL) 40 mg tablet Take 1 tablet by mouth daily at bedtime. - magnesium oxide (MAG-OX) 400 mg (241.3 mg magnesium) tablet Take 400 mg by mouth once daily. - COMPOUNDED PRESCRIPTION Prostaglandin 30mcg/ml injectable, bimix papaverine/phentolamine 30mg/0.5mg/ml injectable for penile intracavernosal inj for ED - Melatonin 5 mg cap Take by mouth. - CALCIUM CARBONATE/VITAMIN D3 (VITAMIN D-3 ORAL) Take by mouth. - Insulin Syringe-Needle U-100 1 mL 31 gauge x 16 For penile intracavernosal injections for ED Problem List As Of Date 06/01/2024 Noted Resolved BPH W/O URINARY OBS/LUTS [N40.0] 07/22/2005 06/09/2007 PSA elevation [R97.20] 09/07/2006 Hypertrophy of prostate with urinary obstructio*06/09/2007 12/17/2017 Bladder neck obstruction [N32.0] 06/09/2007 07/29/2022 Chronic prostatitis [N41.1] 04/30/2009 07/29/2022 Knee pain [M25.569] 01/09/2011 12/17/2017 Umbilical hernia without mention of obstruction*06/16/2012 12/17/2017 Erectile dysfunction due to arterial insufficie*03/17/2018 10/29/2022 Urine retention [R33.9] 08/19/2019 07/29/2022 OLIVA on CPAP [G47.33] 07/29/2022 Chronic neck pain [M54.2, G89.29] 07/29/2022 Restless leg syndrome [G25.81] 07/29/2022 NSTEMI (non-ST elevated myocardial infarction) *08/29/2022 10/29/2022 Primary hypertension [I10] 08/29/2022 Hyperlipidemia [E78.5] 08/29/2022 Stented coronary artery (proximal RCA) [Z95.5] 08/29/2022 Benign prostatic hyperplasia [N40.0] 02/25/2023 Diagnosed: 02/25/2023 Hyperparathyroidism (HCC) [E21.3] 08/28/2023 Vitamin D deficiency [E55.9] 08/28/2023 Vitamin B12 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] 08/28/2023 Encounter Status:Closed by ISAIAS IVEY on 06/01/24 ALLERGIES DATE TYPE / CODE NAME / CODE REACTION SEVERITY SOURCE 09/11/2011 DRUG/[id number]( SNOMED CT) OXYCODONE-ACETAMIN OPHEN INTOLERANCE High [facility] 02/22/2009 DRUG/[id number]( SNOMED CT) HYDROCODONE-ACETAM INOPHEN R[facility] 07/22/2005 DRUG INGREDI/[id number](SNOMED CT) CODEINE RASH [facility] ENCOUNTERS ADMIT/DISCHARGE ACCOUNT NUMBER ADMITTING ENCOUNTER CLASS LOC ATION SOURCE 03/20/2025/ 5 [id number] Ambulatory [facility] HospitalBuild ing:MERARY [facility] 03/17/2025/ 5 [id number] Ambulatory [facility] ing:[facility] 12/13/2024 [id number] Ambulatory [facility] HospitalBuild ing:[address] 12/13/2024 [id number] [facility] [id number] Ambulatory [facility] HospitalBuild ing:KEN [facility] 09/01/2024/ 5 [id number] Ambulatory [facility] HospitalBuild ing:KEN [facility] 08/22/2024/ 5 [id number] Ambulatory [facility] HospitalBuild ing:MARK [facility] 08/16/2024/ 4 [id number] Ambulatory [facility] HospitalBuild ing:KEN [facility] 07/30/2024/ 4 [id number] Ambulatory [facility] HospitalBuild ing:KEN [facility] 07/20/2024/ 4 [id number] Ambulatory [facility] HospitalBuild ing:KEN [facility] PAYERS ENCOUNTER GUARANTOR PAYER SUBSCRIBER SOURCE 03/20/2025 Primary Insurance:[employer] MEDICARE PPOPolicy Number: [id number] Date:4766-19-94Upka Name:Azul QUINTEROSODOB: [id number] [address] 03/17/2025 Primary Insurance:[employer] MEDICARE PPOPolicy Number: [id number] Date:9847-44-01Jiss Name:Azul QUINTEROSODOB: [id number] [address] 12/13/2024 Primary Insurance:[employer] MEDICARE PPOPolicy Number: [id number] Date:8843-69-49Sqse Name:Azul QUINTEROSODOB: [id number] [address] 12/13/2024 Primary Insurance:[employer] MEDICARE PPOPolicy Number: [id number] Date:0686-48-03Nior Name:Azul QUINTEROSODOB: [id number] [address] 12/13/2024 Primary Insurance:[employer] MEDICARE PPOPolicy Number: [id number] Date:3500-08-01Iqnc Name:Azul QUINTEROSODOB: [id number] [address] 09/01/2024 Primary Insurance:[employer] MEDICARE PPOPolicy Number: [id number] Date:4603-16-16Capg Name:Azul QUINTEROSODOB: [id number] [address] 08/22/2024 Primary Insurance:[employer] MEDICARE PPOPolicy Number: [id number] Date:3127-10-54Wfbq Name:Azul QUINTEROMEHRDADB: [id number] [place] [address] [facility] 08/16/2024 Primary Insurance:[employer] MEDICARE PPOPolicy Number: [id number] Date:2248-17-48Micg Name:Azul Watson JOSE MB: [id number] [address] 07/30/2024 Primary Insurance:[employer] MEDICARE PPOPolicy Number: [id number] Date:2645-62-78Unto Name:Azul QUINTEROMEHRDADB: [id number] [place], [place] [address] [place] [address] 07/20/2024 Primary Insurance:[employer] MEDICARE PPOPolicy Number: [id number] Date:9052-07-19Plto Name:Azul LUÍS Shirley JOSE MB: [id number] [place], [place] [address] [place] [address]
[2025-05-16 12:12] LABS: Hematocrit 41.4 % (40-54); Hemoglobin 13.5 g/dL (13.0-16.5); Immature Granulocytes Count 0.050 X10^3/uL (0.0-0.0); Mean Corp Hgb Conc 32.6 g/dL (32-36); Mean Corpuscular Volume 92.8 fL (80-94); Mean Platelet Vol. 9.5 fl (6.2-12.0); NRBC Flagged by Analyzer 0 % (0-5); Platelet Count 248 K/mm3 (150-450); RBC Distribution Width CV 13.1 % (11.6-14.6); RBC Distribution Width SD 44.2 fl (35.1-43.9); Red Blood Count 4.46 M/mm3 (4.6-6.2); White Blood Count 7.4 K/mm3 (4.4-11.0)
[2025-05-16 13:07] LABS: Pro- Brain NATRIURETIC PEPTIDE 95 pg/mL (<=1800)
[2025-05-16 13:08] LABS: Anion Gap 11 (5-15); BUN 20 mg/dL (4-19); BUN/Creat Ratio 18.4 RATIO (10-20); Calcium,Total 8.6 mg/dL (7.6-11.0); Carbon Dioxide 21.2 mmol/L (21.0-32.0); Chloride 106 mmol/L (98-108); Glucose 103 mg/dL (70-99); Potassium 4.2 mmol/L (3.3-5.1)
== END | disposition home or self-care (01) ==
LOC: LAB 11:32
PROVIDERS: PCP Internal Medicine; Referring Provider Nurse Practitioner Gerontology; Visit Provider Nurse Practitioner Gerontology
DX: R06.02 Shortness of breath (principal); R53.83 Other fatigue
CPT/HCPCS: 36415; 80048; 83880; 84443; 85025

== ENCOUNTER → 2025-06-02 | Outpatient (CLI) | payer MEDICARE, SELFPAY ==
[2022-11-28 10:04] VITALS: BMI 29.9
--- OUTSIDE RECORDS SUMMARY | 2025-06-02 06:06 | XMS RPT_ITS | CCD ---
Author Organization [facility] Care Team Providers Care Retanner Name Role Phone Xavier Hampton Primary Care Provider Dr. Zackary Carlos Chi Primary Care Provider Dr. Zackary Carlos Chi Referring Provider Dr. Rolanda Sahu Attending Provider Xavier Hampton DO Primary Care Provider Haroldo Hollis MD Primary Care Provider [phone] MD Haroldo Hollis Primary Care Provider [facility] Braxton Alford Emergency Provider Dr. Otto Arnett Admit Provider Dr. Otto Arnett Attending Provider Dr. Otto Arnett Other Provider Dr. You Hooper Attending Provider Dr. Andrea Eckert Other Provider Dr. Karley Aceves Other Provider Dr. Andrea Eckert Attending Provider MD Haroldo Hollis Referring Provider Venkatesh carlos Montano TANNING SALON ATTENDANT, TANNING SALON ATTENDANT-C Ej Johnson Attending Provider MD Haroldo Sanchez Primary Care Provider U Dr. Braxton Hoffmann Emergency Provider Dr. Otto Arnettit Provider [phone] Otto Arnett Attending Provider Dr. Otto Arnett Other Provider Dr. You Hooper Attending Provider Dr. Andrea Eckert Other Provider Dr. Karley Aceves Other Provider Dr. Andrea Eckert Attending Provider MD Haroldo Sanchez Referring Provider Jaskaran Montano TANNING SALON ATTENDANT, TANNING SALON ATTENDANT-C Ej Johnson Attending Provider MD Haroldo Sanchez Primary Care Provider U MD Haroldo Vigil Primary Care Provider U MD Haroldo Vigil Referring Provider Dr. You Chamorro Attending Provider Haroldo Hollis MD Primary Care Provider Jovanny PLATEMAN.COMMUNITY ARTIST, Dary M Unavailable Dr. Haroldo Hollis MD Primary Care Provider Dr. Haroldo Hollis MD Referring Provider [facility] TANNING SALON ATTENDANT-C, Ej Johnson Attending Provider DARY CROFT Referring Unavailable BUNNY, HAROLDO Johnson Primary Care Unavailable DARY CROFT Referring Unavailable BUNNY, HAROLDO Johnson Primary Care Unavailable HAROLDO HOLLIS Attending Unavailable BUNNY, HAROLDO Johnson Primary Care Unavailable HOLLIS, HAROLDO Johnson Referring Unavailable HOLLIS, HAROLDO Johnson Primary Care Unavailable DARY CROFT Attending Unavailable BUNNY, HAROLDO Johnson Primary Care Unavailable HOLLIS, HAROLDO Johnson Primary Care Unavailable BUNNY, HAROLDO Johnson Attending Unavailable DARY CROFT Attending Unavailable HOLLIS, PRABHU Primary Care Unavailable HOLLIS, PRABHU Primary Care Unavailable HOLLIS, PRABHU Referring Unavailable HOLLIS, PRABHU Primary Care Unavailable HOLLIS, PRABHU Attending Unavailable DARY CROFT Attending Unavailable BUNNY, HAROLDO Johnson Primary Care Unavailable SELF Referring Unavailable Dr. Haroldo Hollis MD Primary Care Physician Dr. Haroldo Hollis MD Referring Provider Jonna Gambino Attending Physician Jonna Gambino Referring Provider Jonna Mcintyre Attending Unavailable Hollis, Haroldo Primary Care Unavailable Jonna Mcintyre Referring Unavailable Sandie, You Attending Unavailable Sandie, You Referring Unavailable Hollis, Haroldo Primary Care Unavailable Hollis, Haroldo Primary Care Unavailable Jonna Mcintyre Attending Unavailable Jonna Mcintyre Referring Unavailable Hollis, Haroldo Primary Care Unavailable Hollis, Haroldo Referring Unavailable Devin Meeks Consulting Unavailable Devin Meeks Attending Unavailable Bunny, Haroldo Primary Care Unavailable Jonna Mcintyre Attending Unavailable Bunny, Haroldo Referring Unavailable Hollis, Haroldo Primary Care Unavailable Hollis, Haroldo Referring Unavailable Ej Montano Attending Unavailable Hollis, Haroldo Primary Care Unavailable Bunny, Haroldo Referring Unavailable Devin Meeks Attending Unavailable Monserrat Stanford Attending Unavailable Monserrat Stanford Referring Unavailable Hollis, Haroldo Primary Care Unavailable Hollis, Haroldo Primary Care Unavailable Deion Dunn Attending Unavailable Deion Dunn Referring Unavailable Allergies Allergy Classification Reported Allergen(s) Allergy Type Date of Onset Reaction(s) Facility Acetaminophen / HYDROcodone (1 source) Acetaminophen / HYDROcodone Drug Allergy 9 Rash, Itching [facility] Work Phone: Acetaminophen / oxyCODONE (1 source) Acetaminophen / oxyCODONE Drug Allergy 2 Intolerance [facility] Opioid Agonists (1 source) Codeine Drug Allergy 5 [facility] (20 sources) Acetaminophen / HYDROcodone; Translations: [HYDROCODONE-ACETA MINOPHEN] Drug Allergy 9 Rash, Itching [facility] (20 sources) Acetaminophen / oxyCODONE; Translations: [OXYCODONE-ACETAMI NOPHEN] Drug Allergy 2 Intolerance [facility] (20 sources) Codeine; Translations: [CODEINE] Drug Allergy 5 Rash [facility] (12 sources) Acetaminophen Drug Allergy 2 unknown [facility] (17 sources) oxyCODONE Drug Allergy 2 unknown [facility] (1 source) Codeine Drug Allergy 5 [facility] Repository (1 source) oxyCODONE Drug Allergy 5 [facility] Rep[facility] Medications Current Medications Medication Drug Class(es) Dates Sig (Normalized) Sig (Original) amoxicillin 875 mg oral tablet (3 sources) Penicillin-class Antibacterial Start: 08-19-2024 End: 08-26-2024 take 1 tablet by mouth twice daily amoxicillin (AMOXIL) 875 mg tablet Indications: Urinary tract infection without hematuria, site unspecified Take 1 tablet by mouth two times a day for 7 days. 14 tablet 08/19/2024 08/26/2024 Active Start: 07-30-2024 End: 08-09-2024 take 1 tablet by mouth twice daily amoxicillin (AMOXIL) 875 mg tablet Indications: Urinary tract infection with hematuria, site unspecified Take 1 tablet by mouth two times a day for 10 days. 20 tablet 07/30/2024 08/09/2024 Active Calcium Carbonate / vitamin D3 (20 sources) CALCIUM CARBONAT E/VITAMIN D3 (VITAMIN D-3 ORAL) Take by mouth. Active CALCIUM CARBONAT E/VITAMIN D3 (VITAMIN D-3 ORAL) Take by mouth. 0 Active Comment on above: Take by mouth. carbidopa 25 mg / levodopa 100 mg oral tablet (20 sources) Aromatic Amino Acid Decarboxylation Inhibitor, Aromatic Amino Acid Start: 06-21-2021 Start: 06-21-2021 take 1 tablet by rose th at bedtime Carbidopa-Levodopa Active 1 TABLET PO AT BEDTIME June 20, 2021 11:00pm Start: 03-28-2019 End: 04-13-2024 carbidopa-levodopa (SINEMET) 25-100 mg per tablet Indications: Restless leg syndrome Take one(1) tablet daily at bedtime. 90 tablet 3 04/14/2024 Active Comment on above: Take 1 tablet by rose th daily at bedtime. Take one(1) tablet d aily at bedtime. cholecalciferol 0.025 mg ora l capsule (7 sources) Vitamin D Start: 01-16-2025 take 1 capsule by mouth once daily Start: 01-30-2023 End: 02-10-2024 take 1 tablet by mouth once daily Cholecalciferol (Vitamin D3) 50 mcg (2,000 unit) tablet Discontinued 50 ug PO DAILY January 30, 2023 12:00am February 10, 2024 2:59pm COMPOUNDED PRESCRIPTION (20 sources) Start: 04-22-2019 COMPOUNDED PRESCRIPTION Prostaglandin 30mcg/ml injectable, bimix papaverine/phentolamine 30mg/0.5mg/ml injectable for penile intracavernosal inj for ED 5 mL 1 04/22/2019 Active Comment on above: Prostaglandin 30mcg/ml injectable, bimix papaverine/phentolamine 30mg/0.5mg/ml injectable for penile intracavernosal inj for ED dutasteride 0.5 mg oral capsule (20 sources) 5-alpha Reductase Inhibitor Start: 01-30-2023 take 1 capsule by mouth once daily Comment on above: Take 1 capsule by mouth once daily. UROL OGY. ezetimibe 10 mg oral tablet (4 sources) Dietary Cholesterol Absorption Inhibitor Start: 02-28-2025 take 1 tablet by mouth once daily ezetimibe (ZETIA) 10 mg tablet Take 1 tablet by mouth once daily. 02/28/2025 Active melatonin 3 mg oral capsule (20 sources) Start: 01-16-2025 take 1 capsule by mouth at bedtime as needed Start: 01-30-2023 End: 02-10-2024 take 1 tablet by mouth at bedtime as needed Melatonin 3 mg tablet Discontinued 3 mg PO BEDTIME as needed January 30, 2023 12:00am February 10, 2024 3:00pm Start: 09-23-2022 End: 01-30-2023 take 3 mg by mouth at bedtime Melatonin 5 mg capsule Discontinued 3 mg PO AT BEDTIME September 23, 2022 10:51am January 30, 2023 11:37am sleep Start: 09-23-2022 End: 01-30-2023 take 3 mg by mouth at bedtime Melatonin Discontinued 3 MG PO AT BEDTIME September 23, 2022 9:51am January 30, 2023 10:37am Start: 07-05-2021 End: 09-23-2022 take 1 capsule by mouth at bedtime Melatonin 5 mg capsule Discontinued 5 mg PO AT BEDTIME July 05, 2021 1:00am September 23, 2022 10:51am sleep Comment on above: Take by mouth. nitrofurantoin, macrocrystals 25 mg / nitrofurantoin, monohydrate 75 mg oral capsule (1 source) Nitrofuran Antibacterial Start: 2023 End: 2023 take 1 capsule by mouth twice daily at mealtime nitrofurantoin monohydrate and macrocrystal (MACROBID) 100 mg capsule Take 1 capsule by mouth two times a day with meals for 7 days. 14 capsule 07/20/2024 07/27/2024 Active predniSONE 10 mg oral tablet (4 sources) Start: 2024 End: 2024 predniSONE (DELTASONE) 10 mg tablet Take 4 tabs daily x 3 days, then 3 tabs x 3 days, 2 tabs x 3 days, then 1 tab x3 days with food. 30 tablet 12/13/2024 12/25/2024 Active vitamin b12 1 mg/ml injectable solution (20 sources) Vitamin B12 Start: 2023 End: 2023 inject 1 mL by intramuscular injection every other week cyanocobalamin 1,000 mcg/mL Inject 1 mL intramuscularly every 2 weeks. 2 mL 11 05/12/2024 Active Start: 07-16-2023 End: 11-25-2023 inject 1 mL by intramuscular injection every month cyanocobalamin 1,000 mcg/mL Inject 1 mL intramuscularly once every month. 1 mL 07/16/2023 11/25/2023 Discontinued Comment on above: Inject 1 mL intramus cularly once every month. Inject 1 mL intramus cularly every 2 weeks. Completed/Discontinued Medications Medication Drug Class(es) Dates Sig (Normalized) Sig (Original) acetaminophen 500 mg / diphenhydrAMINE hydrochloride 25 mg oral tablet (20 sources) Histamine-1 Receptor Antagonist Start: 07-05-2021 End: 02-10-2024 Diphenhydramine-A cetaminophen (Tylenol Pm Extra Strength) 25-500 mg tablet Discontinued 0.5 {tbl} PO AT BEDTIME as needed for Pain January 30, 2023 11:40am February 10, 2024 2:59pm aspirin 81 mg chewable tablet (20 sources) Platelet Aggregation Inhibitor, Nonsteroidal Anti-inflammatory Drug Start: 08-26-2022 End: 01-16-2025 take 1 tablet by mouth once daily Aspirin 81 mg tablet,chewable Discontinued 81 mg PO DAILY 90 3 December 13, 2024 11:04am January 16, 2025 7:53am calcium carbonate 1500 mg oral tablet (11 sources) Start: 09-23-2022 End: 02-10-2024 take 1 tablet by mouth once daily Calcium Carbonate (Calcium 600) 600 mg calcium (1,500 mg) tablet Discontinued 600 mg PO DAILY September 23, 2022 1:00am February 10, 2024 2:58pm celecoxib 200 mg oral capsule (20 sources) Nonsteroidal Anti-inflammatory Drug Start: 05-14-2018 End: 05-10-2024 take 1 capsule by mouth once daily as needed for pain Celecoxib 200 mg capsule Discontinued 200 mg PO DAILY as needed for pain courtesy fill until Primary Can Fill 14 December 24, 2022 12:00am May 10, 2024 10:12am Comment on above: Take 1 capsule by mo [facility] once daily. Take 200 mg by mouth once daily. clopidogrel 75 mg oral tablet (12 sources) P2Y12 Platelet Inhibitor Start: 02-11-2024 End: 02-01-2025 take 1 tablet by mouth once daily Clopidogrel (Plavix) 75 mg tablet Discontinued 75 mg PO DAILY 90 January 30, 2025 1:28pm February 01, 2025 11:01am docusate sodium 100 mg oral capsule (17 sources) Start: 10-15-2023 End: 09-01-2024 take 1 capsule by mouth twice daily docusate sodium (COLACE) 100 mg capsule Indications: Constipation, unspecified constipation type Take 1 capsule by mouth two times a day. 20 capsule 10/15/2023 09/01/2024 Discontinued Comment on above: Take 1 capsule by mo [facility] two times a day. doxazosin 2 mg oral tablet (20 sources) alpha-Adrenergic Madiha Start: 01-30-2023 End: 09-01-2024 take 1 mg by mouth at bedtime Doxazosin 2 mg tablet Discontinued 1 mg PO AT BEDTIME January 30, 2023 12:00am February 10, 2024 2:59pm Start: 01-30-2023 take 1 mg by mouth at bedtime Doxazosin Active 1 MG PO AT BEDTIME Sammie 15th, 2023 11:00pm Start: 09-23-2022 End: 01-30-2023 take 2 mg by mouth at bedtime Doxazosin 4 mg tablet Di scontinued 2 mg PO AT BEDTIME September 23, 2022 10:50am January 30, 2023 11:36am Start: 09-23-2022 End: 01-30-2023 take 2 mg by mouth at bedtime Doxazosin Discontinued 2 MG PO AT BEDTIME September 23, 2022 9:50am January 30, 2023 10:36am Start: 08-29-2022 End: 10-29-2022 take 1 tablet by mouth once daily at bedtime doxazosin (CARDURA) 2 mg tablet Indications: Primary hypertension Take 1 tablet by mouth daily at bedtime. 30 tablet 0 08/29/2022 10/29/2022 Discontinued (Clinical Decision) Start: 07-23-2021 End: 08-29-2022 take 1.5 tablets by mouth once daily at bedtime doxazosin (CARDURA) 4 mg tablet TAKE 1.5 TABLETS BY MOUTH DAILY AT BEDTIME. 45 tablet 0 12/17/2021 08/29/2022 Discontinued Start: 06-21-2021 End: 09-23-2022 take 1 tablet by mouth at bedtime Doxazosin 4 mg tablet Discontinued 4 mg PO AT BEDTIME 90 1 March 03, 2022 9:34am September 23, 2022 10:52am Start: 08-25-2019 End: 08-29-2020 take 1.5 tablets by mouth once daily at bedtime doxazosin (CARDURA) 4 mg tablet TAKE 1.5 TABLETS BY MOUTH DAILY AT BEDTIME. 135 tablet 1 08/29/2020 Active Comment on above: Take 1.5 tablets by mouth daily at bedtime. Take 1 tablet by rose th daily at bedtime. Take 1 tablet by rose th daily at bedtime. UROLOGY. dutasteride 0.5 mg / tamsulosin hydrochloride 0.4 mg oral capsule (11 sources) alpha-Adrenergic Madiha, 5-alpha Reductase Inhibitor Start: 09-23-2022 End: 01-30-2023 Dutasteride-Tamsulosin 0.5-0.4 mg capsule, ER multiphase 24 hr Discontinued 1 NMA PO DAILY September 23, 2022 1:00am January 30, 2023 11:41am Start: 09-23-2022 End: 01-30-2023 take 1 capsule by mouth once daily Dutasteride-Tamsulosin Discontinued 1 CA P PO DAILY September 23, 2022 12:00am January 30, 2023 10:41am gabapentin 300 mg oral capsule (20 sources) Anti-epileptic Agent Start: 07-05-2021 End: 03-17-2025 take 1 capsule by mouth once daily Gabapentin 300 mg capsule Discontinued 300 mg PO DAILY 90 3 July 16, 2022 8:55am August 25, 2022 2:52am Start: 05-15-2020 End: 08-29-2022 take 1 capsule by mouth twice daily gabapentin (NEURONTIN) 300 mg capsule Take 300 mg by mouth twice daily. 0 05/15/2020 08/29/2022 Discontinued Start: 05-15-2020 take 1 capsule by mo uth every eight hours as needed gabapentin (NEURONTIN) 300 mg capsule Take 300 mg by mouth three times daily as needed. 0 05/15/2020 Active Comment on above: Take 300 mg by mouth three times daily as needed. Take 300 mg by mouth twice daily. Take 1 capsule by mo uth daily at bedtime. Take 1 capsule by mo uth daily at bedtime for 180 days. hydrOXYzine pamoate 25 mg oral capsule (8 sources) Antihistamine Start: End: take 1 capsule by mouth every eight hours as needed for anxiety and anxiety hydrOXYzine pamoate (VISTARIL) 25 mg capsule Indications: Anxiety Take 1 capsule by mouth three times daily as needed for Anxiety. 30 capsule 0 07/20/2020 07/29/2022 Discontinued (Discontinued by Patient) Comment on above: Take 1 capsule by mo uth three times daily as needed for Anxiety. Insulin Syringe-Needle U-100 (BD ULTRAFINE INSULIN) 1 mL 31 x 5/16 Misc Syrg (12 sources) Start: Insulin Syringe-Needle U-100 (BD ULTRAFINE INSULIN) 1 mL 31 x 5/16 Misc Syrg For penile intracavernosal injections for ED 0 09/03/2011 Active Comment on above: For penile intracave rnosal injections for ED LORazepam 0.5 mg oral tablet (2 sources) Benzodiazepine Start: End: 12-17-2 020 take 1 tablet by mouth once daily at bedtime LORazepam (ATIVAN) 0.5 mg Indications: Anxiety Take 1 tablet by mouth daily at bedtime for 14 days. 14 tablet 0 07/19/2020 08/02/2020 Active Comment on above: Take 1 tablet by rose th daily at bedtime for 14 days. Magnesium Oxide (20 sources) Start: 023 End: 024 magnesium oxide Discontinued 2 {tbl} PO DAILY January 30, 2023 12:00am February 10, 2024 3:00pm Start: 01-30-2023 take 2 tablets by mo ut once daily magnesium oxide Active 2 TABLET PO DAILY January 29, 2023 11:00pm Start: 01-30-2023 take 2 tablets by mo ut once daily magnesium oxide Active 2 TABLET PO DAILY January 30, 2023 12:00am Start: 07-02-2020 take 1 tablet by mouth once da maia magnesium oxide (MAG-OX) 400 mg (241.3 mg magnesium) tablet Take 400 mg by mouth once daily. 07/02/2020 Active Comment on above: Take 400 mg by mouth once daily. metoprolol tartrate 50 mg oral tablet (20 sources) beta-Adrenergic Madiha Start: 11-30-2023 End: 12-21-2024 take 1 tablet by mouth twice daily Metoprolol Tartrate 50 mg tablet Discontinued 50 mg PO TWICE A DAY 180 3 February 11, 2024 10:13am December 21, 2024 7:58am This is a dose increase 11/30/23 Start: 09-03-2023 End: 11-30-2023 take 1 tablet by mouth twice daily Metoprolol Tartrate 25 mg tablet Discontinued 25 mg PO TWICE A DAY 180 3 September 03, 2023 4:17pm November 30, 2023 2:10pm dose increased to full 25 mg twice daily Start: 02-25-2023 End: 09-01-2024 take 0.5 tablet by mouth twice daily metoprolol tartrate, short acting, (LOPRESSOR) 25 mg tablet Indications: Stented coronary artery Take 0.5 tablets by mouth twice daily. CARDIOLOGY. 02/25/2023 09/01/2024 Discontinued (Dosage adjustment) Start: 09-08-2022 End: 09-03-2023 Metoprolol Tartrate 25 mg ta blet Discontinued 12.5 mg PO TWICE A DAY 90 December 16, 2022 9:45am September 03, 2023 4:10pm Start: 09-08-2022 End: 09-03-2023 take 12.5 mg by mouth twice daily Metoprolol Tartrate Discontinued 12.5 MG PO TWICE A DAY 90 December 16, 2022 8:45am September 03, 2023 3:10pm Start: 08-26-2022 End: 02-25-2023 take 1 tablet by mouth twice daily Metoprolol Tartrate 25 mg Tablet Discontinued 25 mg PO TWICE A DAY 60 2 August 26, 2022 1:00am September 08, 2022 10:12am Comment on above: Take 1 tablet by rose th twice daily. Take 0.5 tablets by mouth twice daily. CARDIOLOGY. multivit-mins 25-folic acid-D3 3-2,000 mg-unit tab (20 sources) End: 09-01-2024 multivit-mins 25-folic acid-D3 3-2,000 mg-unit tab Take by mouth. 09/01/2024 Discontinued multivit-mins 25 -folic acid-D3 3-2,000 mg-unit tab Take by mouth. Active multivit-mins 25 -folic acid-D3 3-2,000 mg-unit tab Take by mouth. 0 Active Comment on above: Take by mouth. polyethylene glycol 3350 00033 mg powder for oral solution (17 sources) Osmotic Laxative Start: 4 End: polyethylene glycol 3350 (MIRALAX) 17 gram/dose powder Indications: Constipation, unspecified constipation type Take 17 g by mouth once daily. 17 g 10/15/2023 09/01/2024 Discontinued Comment on above: Take 17 g by mouth o nce daily. pravastatin sodium 20 mg oral tablet (20 sources) HMG-CoA Reductase Inhibitor Start: 5 End: take 1 tablet by mouth at bedtime Pravastatin 20 mg tablet Discontinued 20 mg PO AT BEDTIME 90 January 16, 2025 8:21am May 16, 2025 11:15am On Hold: leg cramps TAKE 1 TABLET BY MOUTH AT BEDTIME Start: 08-26-2022 End: 03-17-2025 take 1 tablet by mouth at bedtime Pravastatin 40 mg tablet Discontinued 0 .ROUTE .COMPLEX 90 September 18, 2023 10:06am July 05, 2024 9:58am TAKE 1 TABLET BY MOUTH AT BEDTIME Comment on above: Take 1 tablet by rose th daily at bedtime. ticagrelor 90 mg oral tablet (20 sources) Start: 09-23-2022 End: 02-11-2024 take 1 tablet by mouth twice daily Ticagrelor 90 mg tablet Discontinued 90 mg PO TWICE A DAY 180 December 21, 2023 8:35am February 11, 2024 10:20am Start: 08-29-2022 End: 09-01-2024 take 1 tablet by mouth once ticagrelor (BRILINTA) 60 m g tablet Indications: NSTEMI (non-ST elevated myocardial infarction) (HCC) , Stented coronary artery Take 60 mg by mouth one time only. 08/29/2022 09/01/2024 Discontinued (Changing Therapy/Dosage Form) Start: 08-26-2022 End: 09-23-2022 take 1 tablet by mouth twice daily Ticagrelor (Brilinta) 60 mg tablet Discontinued 60 mg PO TWICE A DAY 60 August 26, 2022 1:00am September 23, 2022 12:39pm Comment on above: Take 1 tablet by rose th twice daily. Problems Active Problems Problem Classification Problem Date Documented Date Episodic/Chronic Acute myocardial infarction (20 sources) Myocardial infarction; Translations: [Non-ST elevation (NSTEMI) myocardial infarction] Onset: 08-29-19 Resolved : 10-30-19 Chronic Administrative/social admission (2 sources) Persons encountering health services in other specified circumstances; Translations: [Other reasons for seeking consultation] Episodic Anxiety disorders (2 sources) Anxiety; Translations: [Anxiety] Chronic Cardiac dysrhythmias (17 sources) Intermittent palpitations; Translations: [Palpitations] 07-05-2021 Episodic Conditions associated with dizziness or vertigo (17 sources) Lightheadedness; Translations: [Dizziness and giddiness] 07-05-2021 Episodic Coronary atherosclerosis and other heart disease (20 sources) Calcification of coronary artery; Translations: [Atherosclerotic heart disease of [place] coronary artery without angina pectoris] Onset: 12-16-19 Chronic Comment on above: PTCA/GIUSEPPE Prox RCA Re solute Óscar 4.0x18mm on 08/25/2022; Coronary atherosclerosis and other heart disease (20 sources) Stented coronary artery; Translations: [Presence of coronary angioplasty implant and graft] Onset: 08-17-19 Episodic Disorders of lipid metabolism (20 sources) Hyperlipidemia; Translations: [Hyperlipidemia, unspecified] Onset: 08-29-19 Chronic E Codes: Adverse effects of medical drugs (1 source) Adverse effect of antihyperlipidemic and antiarteriosclerotic drugs, initial encounter; Translations: [Myalgia due to statin] Onset: 03-17-20 Episodic Essential hypertension (20 sources) Benign essential hypertension; Translations: [Essential (primary) hypertension] Onset: 07-22-20 05 12-17-2017 Chronic Hyperplasia of prostate (20 sources) Benign prostatic hypertrophy with outflow obstruction; Translations: [Benign prostatic hyperplasia] Onset: 07-22-20 Resolved : 12-18-19 18 08-30-2022 Chronic Immunizations and screening for infectious disease (1 source) Needs influenza immunization; Translations: [Encounter for immunization] 09-01-2024 Episodic Inflammatory conditions of male genital organs (20 sources) Chronic prostatitis; Translations: [Chronic prostatitis] Onset: 04-30-20 Resolved : 07-29-20 22 04-30-2009 Chronic Malaise and fatigue (20 sources) Fatigue; Translations: [Other fatigue] Onset: 05-16-20 25 07-05-2021 Episodic Nonspecific chest pain (13 sources) Precordial pain; Translations: [Other chest pain] Onset: 05-16-20 25 10-16-2022 Episodic Nutritional deficiencies (20 sources) Vitamin D deficiency; Translations: [Vitamin D deficiency, unspecified] Onset: 08-28-19 24 07-17-2023 Chronic Other acquired deformities (1 source) Scoliosis, unspecified; Translations: [Scoliosis, unspecified] Onset: 09-19-19 Chronic Other and unspecified benign neoplasm (2 sources) History of polyp of colon; Translations: [History of colonic polyps] 05-26-2024 Episodic Comment on above: Patient is a 78-year -old male who arrives to schedule a surveillance colonoscopy given a history of colon polyps. Other connective tissue disease (9 sources) H/O: artificial joint; Translations: [Knee joint replacement by other means] Onset: 03-12-20 11 03-12-2011 Chronic Other connective tissue disease (4 sources) Myalgia caused by statin; Translations: [Myalgia, unspecified site] Onset: 03-17-2003-17-2025 Episodic Other connective tissue disease (1 source) Myalgia, unspecified site; Translations: [Myalgia due to statin] Onset: 03-17-20 Episodic Other endocrine disorders (20 sources) Hyperparathyroidism; Translations: [Hyperparathyroidism, unspecified] Onset: 08-28-1908-28-2023 Chronic Other endocrine disorders (1 source) Hyperparathyroidism, unspecified; Translations: [Hyperparathyroidism (HCC)] Onset: 08-28-19 Chronic Other gastrointestinal disorders (1 source) Constipation; Translations: [Constipation, unspecified] 10-15-2023 Episodic Other hereditary and degenerative nervous system conditions (20 sources) Restless legs; Translations: [Restless legs syndrome] Onset: 07-29-20 Chronic Other lower respiratory disease (2 sources) Dyspnea; Translations: [Shortness of breath] 05-16-2025 Episodic Other lower respiratory disease (2 sources) Shortness of breath; Translations: [Shortness of breath] Onset: 05-16-20 Episodic Other nutritional; endocrine; and metabolic disorders (17 sources) Obesity; Translations: [Obesity, unspecified] 06-21-2021 Chronic Other nutritional; endocrine; and metabolic disorders (9 sources) Obese class I; Translations: [Obesity, Class I, BMI 30-34.9] Onset: 09-01-1909-01-2024 Chronic Other screening for suspected conditions (not mental disorders or infectious disease) (1 source) Elevated fasting lipid profile; Translations: [Elevated fasting lipid profile] Chronic Residual codes; unclassified (20 sources) Obstructive sleep apnea syndrome; Translations: [Obstructive sleep apnea (adult) (pediatric)] Onset: 07-29-20 Chronic Residual codes; unclassified (1 source) Requires vaccination; Translations: [Need for vaccination] Screening and history of mental health and substance abuse codes (2 sources) Patient encounter status; Translations: [Encounter for screening for depression] 09-01-2024 Episodic Spondylosis; intervertebral disc disorders; other back problems (2 sources) Cervical radiculopathy; Translations: [Other intervertebral disc degeneration, thoracic region] Onset: 09-19-19 Chronic Spondylosis; intervertebral disc disorders; other back problems (20 sources) Neck pain; Translations: [Spinal stenosis in cervical region] Onset: 07-29-20 Episodic Unclassified (2 sources) Patient encounter status; Translations: [Preoperative evaluation to rule out surgical contraindication] Unclassified (1 source) Acute right-sided low back pain without sciatica; Translations: [Acute right-sided low back pain without sciatica] Onset: 12-14-19 Past or Other Problems Problem Classification Problem Date Documented Da te Episodic/Chronic Abdominal hernia (19 sources) Umbilical hernia; Translations: [Umbilical hernia without obstruction or gangrene] Onset: 06-16-2012 Resolved: 12-17-2017 12-17-2017 Episodic E Codes: Fall (2 sources) Fall on steps; Translations: [Fall (on) (from) other stairs and steps, initial encounter] Onset: 12-13-2024 12-13-2024 Episodic E Codes: Fall (1 source) Fall on steps 12-13-2024 Genitourinary symptoms and ill-defined conditions (20 sources) Retention of urine; Translations: [Retention of urine, unspecified] Onset: 08-19-2019 Resolved: 07-29-2022 08-19-2019 Episodic Neoplasms of unspecified nature or uncertain behavior (3 sources) Benign adenomatous neoplasm; Translations: [Neoplasm of uncertain behavior, unspecified] Onset: 08-05-2024 05-17-2024 Episodic Nutritional deficiencies (20 sources) Cobalamin deficiency; Translations: [Deficiency of other specified B group vitamins] Onset: 08-28-2023 07-17-2023 Episodic Other and unspecified benign neoplasm (9 sources) Polyp of colon; Translations: [Polyp of colon] Onset: 05-11-2024 09-01-2024 Episodic Other connective tissue disease (13 sources) Abnormal movement; Translations: [Unspecified abnormal involuntary movements] Onset: 07-22-2005 07-18-2019 Episodic Other diseases of bladder and urethra (20 sources) Bladder neck obstruction; 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 obstruction] Onset: 06-09-2007 Resolved: 07-29-2022 06-09-2007 Chronic Other male genital disorders (20 sources) Erectile dysfunction co-occurrent and due to arterial insufficiency; Translations: [Erectile dysfunction due to arterial insufficiency] Onset: 03-17-2018 Resolved: 10-29-2022 03-17-2018 Chronic Other non-traumatic joint disorders (19 sources) Pain in unspecified knee; Translations: [Pain in joint, lower leg] Onset: 01-09-2011 Resolved: 12-17-2017 12-17-2017 Episodic Other screening for suspected conditions (not mental disorders or infectious disease) (20 sources) Raised prostate specific antigen; Translations: [Elevated prostate specific antigen [PSA]] Onset: 09-07-2006 09-07-2006 Episodic Urinary tract infections (5 sources) Urinary tract infectious disease; Translations: [Urinary tract infection, site not specified] Onset: 07-30-2024 07-30-2024 Episodic Results Test Name Value Interpretation Reference Range Facility Absolute lymphocyte countOrd ered By: Jonna Mcintyre on 05-16-2025 Lymphocytes Auto (Unsp spec) [#/Vol] 1.64 10*3/uL 0.83-4.51 [facility] Absolute neutrophil countOrd ered By: Jonna Mcintyre on 05-16-2025 Neutrophils (Bld) [#/Vol] 4.3 10*3/uL 2.0-7.7 [facility] Anion gap in Serum or Plasma Ordered By: Jonna Mcintyre on 05-16-2025 Anion gap [Moles/Vol] 11 mmol/L 12-29 [facility] Automated lymphocyte count a s percentage of total leukocytesOrdered By: Jonna Mcintyre on 05-16-2025 Lymphocytes/100 WBC Auto (Unsp spec) 22.3 % [facility] BUN/creatinine ratioOrdered By: Jonna Mcintyre on 05-16-2025 Urea nitrogen/Creatinine [Mass ratio] 18.4 mg/mg - [facility] Basic Metabolic Profile (BMP )on 05-16-2025 BUN/CRE 18.4 RATIO Normal 06-05 [facility] Comment on above: Performed By: #### L 501.9691, L100.0100, L503.1825, L500.2500 #### [facility] [address] [place] [address]. [place], [address] Calcium [Mass/Vol] 8.6 mg/dL Normal 7.6-11.0 [facility] Comment on above: Performed By: #### L 501.9520, L100.0100, L503.7505, L500.2500 #### [facility] [address] [place], [address] Chloride [Moles/Vol] 106 mmol/L Normal 98-108 [facility] Comment on above: Performed By: #### L 501.9520, L100.0100, L503.7505, L500.2500 #### [facility] [address] [place], [address] CO2 [Moles/Vol] 21.2 mmol/L Normal 21.0-32.0 [facility] Comment on above: Performed By: #### L 501.9520, L100.0100, L503.7505, L500.2500 #### [facility] [address] [place], [address] Creatinine [Mass/Vol] 1.08 mg/dL Normal 0.70-1.20 [facility] Comment on above: Performed By: #### L 501.9520, L100.0100, L503.7505, L500.2500 #### [facility] [address] [place], [address] GAP 11 Normal 5-15 [facility] Comment on above: Performed By: #### L 501.9520, L100.0100, L503.7505, L500.2500 #### [facility] [address] [place], [address] GFR/1.73 sq M.predicted among non-blacks MDRD (S/P/Bld) [Vol rate/Area] 70 mL/min/{1.73_m2} Normal >60 [facility] Comment on above: Result Comment: mL/m in/1.73m2 CKD-EPI Creatinine Equation (2020) Performed By: #### L 501.9520, L100.0100, L503.7505, L500.2500 #### [facility] [address] [place], [address] Glucose [Mass/Vol] 103 mg/dL High 70-99 [facility] Comment on above: Performed By: #### L 501.9520, L100.0100, L503.7505, L500.2500 #### [facility] [address] [place], [address] Potassium [Moles/Vol] 4.2 mmol/L Normal 3.3-5.1 [facility] Comment on above: Result Comment: Hemo lysis present, Results??could be affected. ?? Performed By: #### L 501.9520, L100.0100, L503.7505, L500.2500 #### [facility] [address] [place], [address] Sodium [Moles/Vol] 139 mmol/L Normal 133-145 [facility] Comment on above: Performed By: #### L 501.9520, L100.0100, L503.7505, L500.2500 #### [facility] [address] [place], [address] Urea nitrogen [Mass/Vol] 20 mg/dL High 4-19 [facility] Comment on above: Performed By: #### L 501.9520, L100.0100, L503.7505, L500.2500 #### [facility] [address] [place], [address] Basophil percentageOrdered B y: Jonna Mcintyre on 05-16-2025 Basophils/100 WBC (Bld) 1.0 % 0-1 [facility] CBC W/Diff, Automatedon 04-19 Absolute Lymph 1.64 X10 3/uL Normal 0.83-4.51 [facility] Comment on above: Performed By: #### L 501.9520, L100.0100, L503.7505, L500.2500 #### [facility] [address] [place], [address] Absolute Neut 4.3 X10 3/uL Normal 2.0-7.7 [facility] Comment on above: Performed By: #### L 501.9520, L100.0100, L503.7505, L500.2500 #### [facility] [address] [place], [address] Basophils/100 WBC (Bld) 1.0 % Normal 0-1 [facility] Comment on above: Performed By: #### L 501.9520, L100.0100, L503.7505, L500.2500 #### [facility] [address] [place], [address] Eosinophils/100 WBC (Bld) 5.2 % High 0-5 [facility] Comment on above: Performed By: #### L 501.9520, L100.0100, L503.7505, L500.2500 #### [facility] [address] [place], [address] Erythrocyte distribution width (RBC) [Ratio] 13.1 % Normal 11.6-14.6 [facility] Comment on above: Performed By: #### L 501.9520, L100.0100, L503.7505, L500.2500 #### [facility] [address] [place], [address] Hematocrit (Bld) [Volume fraction] 41.4 % Normal 40-54 [facility] Comment on above: Performed By: #### L 501.9520, L100.0100, L503.7505, L500.2500 #### [facility] [address] [place], [address] Hemoglobin (Bld) [Mass/Vol] 13.5 g/dL Normal 13.0-16.5 [facility] Comment on above: Performed By: #### L 501.9520, L100.0100, L503.7505, L500.2500 #### [facility] [address] [place], [address] IG% 0.700 Normal 0.0-0.9 [facility] Comment on above: Result Comment: IG% - Immature Granulocytes (promyelocytes, myelocytes and metamyelocytes) > 1% indicates that a LEFT SHIFT is Present. Performed By: #### L 501.9520, L100.0100, L503.7505, L500.2500 #### [facility] [address] [place], [address] Lymphocytes/100 WBC (Bld) 22.3 % Normal 19-41 [facility] Comment on above: Performed By: #### L 501.9520, L100.0100, L503.7505, L500.2500 #### [facility] [address] [place], [address] MCH (RBC) [Entitic mass] 30.3 pg Normal 27.0-32.0 [facility] Comment on above: Performed By: #### L 501.9520, L100.0100, L503.7505, L500.2500 #### [facility] [address] [place], [address] MCHC (RBC) [Mass/Vol] 32.6 g/dL Normal 32-36 [facility] Comment on above: Performed By: #### L 501.9520, L100.0100, L503.7505, L500.2500 #### [facility] [address] [place], [address] MCV (RBC) [Entitic vol] 92.8 fL Normal 80-94 [facility] Comment on above: Performed By: #### L 501.9520, L100.0100, L503.7505, L500.2500 #### [facility] [address] [place], [address] Monocytes/100 WBC (Bld) 13.0 % High 0-10 [facility] Comment on above: Performed By: #### L 501.9520, L100.0100, L503.7505, L500.2500 #### [facility] [address] [place], [address] Neutrophils/100 WBC (Bld) 57.8 % Normal 47-70 [facility] Comment on above: Performed By: #### L 501.9520, L100.0100, L503.7505, L500.2500 #### [facility] [address] [place], [address] Nucleated RBC (Bld) [#/Vol] 0 10*3/uL Normal 0-5 [facility] Comment on above: Performed By: #### L 501.9520, L100.0100, L503.7505, L500.2500 #### [facility] [address] [place], [address] Platelet mean volume (Bld) [Entitic vol] 9.5 fL Normal 6.2-12.0 [facility] Comment on above: Performed By: #### L 501.9520, L100.0100, L503.7505, L500.2500 #### [facility] [address] [place], [address] Platelets (Bld) [#/Vol] 248 10*3/uL Normal 150-450 [facility] Comment on above: Performed By: #### L 501.9520, L100.0100, L503.7505, L500.2500 #### [facility] [address] [place], [address] RBC (Bld) [#/Vol] 4.46 10*6/uL Low 4.6-6.2 [facility] Comment on above: Performed By: #### L 501.9520, L100.0100, L503.7505, L500.2500 #### [facility] [address] [place], [address] RDW SD 44.2 fl High 35.1-43.9 [facility] Comment on above: Performed By: #### L 501.9520, L100.0100, L503.7505, L500.2500 #### [facility] [address] [place], [address] WBC (Bld) [#/Vol] 7.4 10*3/uL Normal 4.4-11.0 [facility] Comment on above: Performed By: #### L 501.9520, L100.0100, L503.7505, L500.2500 #### [facility] [address] [place], [address] Carbon dioxide, total [Moles /volume] in Central venous bloodOrdered By: Jonna Mcintyre on 05-16-2025 CO2 [Moles/Vol] 21.2 mmol/L 21.0-32.0 [facility] Cardiology Visit Reporton Cardiology Visit Report [facility] [address] [place] [address] OFFICE VISIT Date of Service: 05/16/25 MR#: [id number] Acct: [id number] Name: LUÍS HERNANDEZ Rep #: [id number] : 1945 Provider: FATMATA solitario Age/Sex: 80/M Location: [facility] [place] Status: Signed HPI HPI History of Present Illness Details: This is a 80-year-old male who presents to the office today for a cardiovascular follow-up. He was evaluated at [facility] in August 2022 for non-ST elevated myocardial infarction with peak high-sensitivity troponin was 1086. He underwent a heart catheterization that showed normal left main coronary artery, LAD with mild disease, first diagonal vessel with 40% proximal stenosis, LCx with mild disease, dominant RCA with high-grade 95% proximal stenosis, and preserved left ventricular systolic function. He proceeded with drug-eluting stent to proximal RCA. Echocardiogram on 08/25/2022 showed an ejection fraction of 60% and no regional wall motion abnormalities. He also has a past medical history of hypertension and hyperlipidemia. From a cardiac standpoint, the patient is doing well. He does acknowledge midsternal chest pressure. He states this is constant, but worse with exertion and anxiety. He states that at times he does have pain in his shoulder blades. He denies any palpitations, chest pain, or heaviness. He does acknowledge occasional SOB with climbing stairs. He states this is worsening. He denies Orthopnea, and PND. He does not have bleeding issues; no blood in urine, stool, or nosebleeds. He does acknowledge fatigue. He denies any myalgias, or claudication. He does not have edema, or sudden weight gain. He does acknowledge occasional lightheadedness with quick positional changes. He denies dizziness, syncopal or near syncopal episodes, and headaches. Intake Vital Signs 01/16/25 06:37 05/16/25 07:56 Height 5 ft 11 in 5 ft 11 in Weight: 221 lb BMI 30.8 BP 117/75 Blood Pressure Location Lt brachial Position Sitting Respiration 18 Pulse 62 Pulse Source Monitor Pulse Oximetry (%) 9 Intake Visit Reasons: Episodes of chest pain off and on. L.L. Steam Hammer Operator Required: No Is patient in pain?: No Allergies codeine Adverse Reaction (Verified 05/16/25 11:15) unknown oxycodone (From Percocet) Adverse Reaction (Verified 05/16/25 11:15) unknown Medications ???Medication ???Instructions ???Recorded ???Confirmed ???Type carbidopa 25 mg-levodopa 100 mg 1 tab PO QHS RLS 06/21/21 05/16/25 History tablet dutasteride 0.5 mg capsule 0.5 mg PO DAILY 01/30/23 05/16/25 History metoprolol tartrate 50 mg tablet 50 mg PO BID #180 TABLETS 12/21/24 05/16/25 Rx cholecalciferol (vitamin D3) 25 25 mcg PO QDAY 01/16/25 05/16/25 H istory mcg (1,000 unit) capsule melatonin 3 mg capsule 3 mg PO HS PRN 01/16/25 05/16/25 H istory clopidogrel 75 mg tablet (Plavix) 75 mg PO DAILY #90 tabs 02/01/25 05/16/25 Rx ezetimibe 10 mg tablet 10 mg PO QDAY #30 tabs 02/28/25 Rx Ejection fraction %: 60 Have you fallen in the past year?: No PFSH Medical History (Reviewed 05/16/25 @ 13:03 by Jonna Mcintyre TANNING SALON ATTENDANT, TANNING SALON ATTENDANT-C) Fatigue Villous adenoma Alcohol use Thyroid disease Arthritis Prostate disease High cholesterol Back pain History of hiatal hernia Former smoker CPAP (continuous positive airway pressure) dependence Leg cramps History of heart attack Hypertension History of stress test History of echocardiogram Cardiology follow-up encounter Atherosclerosis of coronary artery of [place] heart without angina pectoris NSTEMI, initial episode of care Neuropathy Lightheadedness Uncontrolled hypertension Coronary artery calcification seen on CAT scan (12/2016) Insomnia Anxiety Osteoarthritis Hyperlipidemia Obesity Restless legs syndrome (RLS) Obstructive sleep apnea Cervical stenosis of spine BPH (benign prostatic hyperplasia) Essential hypertension Surgical History (Reviewed 05/16/25 @ 13:03 by Jonna Mcintyre TANNING SALON ATTENDANT, TANNING SALON ATTENDANT-C) Hx of colonoscopy History of cardiac catheterization History of coronary artery stent placement ( 08/25/22) History of carpal tunnel surgery History of thyroid surgery Trigger finger History of knee replacement History of herniorrhaphy H/O cervical spine surgery (02/2020) History of transurethral resection of prostate (09/2019) Family History (Reviewed 05/16/25 @ 13:03 by Jonna Mcintyre TANNING SALON ATTENDANT, TANNING SALON ATTENDANT-C) Sister Arthritis Mother Hypertension Other CVA (cerebral vascular accident) Social History (Reviewed 05/16/25 @ 13:03 by Jonna Mcintyre TANNING SALON ATTENDANT, TANNING SALON ATTENDANT-C) Smoking Status: Former smoker quit date: 08/17/97 how long ago did patient quit smokin years ago alcohol intake: current alcohol intake frequency: a few times a week sub (more content not included)... Normal [facility] Chloride assayOrdered By: Yannick Mcintyre on 05-16-2025 Chloride [Moles/Vol] 106 mmol/L 98-108 [facility] Eosinophil percentageOrdered By: Jonna Mcintyre on 05-16-2025 Eosinophils/100 WBC (Bld) 5.2 % High 0-5 [facility] Erythrocyte distribution wid th ratioOrdered By: Jonna Mcintyre on 05-16-2025 Erythrocyte distribution width (RBC) [Ratio] 13.1 % 11.6-14.6 [facility] Erythrocyte distribution wid th standard deviationOrdered By: Jonna Mcintyre on 05-16-2025 Erythrocyte distribution width (RBC) [Ratio] 44.2 fl High 35.1-43.9 [facility] Glomerular filtration rate ( GFR) estimation/1.73 sq m using serum, plasma, or whole bOrdered By: Jonna Mcintyre on 05-16-2025 GFR/1.73 sq M.predicted among non-blacks MDRD (S/P/Bld) [Vol rate/Area] 70 mL/min/{1.73_m2} >60 [facility] Comment on above: mL/min/1.73m2 CKD-EP I Creatinine Equation (2020) Hematocrit Auto (Bld) [Volum e fraction]Ordered By: Jonna Mcintyre on 05-16-2025 Hematocrit (Bld) [Volume fraction] 41.4 % 40-54 [facility] Hemoglobin measurementOrdere d By: Jonna Mcintyre on 05-16-2025 Hemoglobin (Bld) [Mass/Vol] 13.5 g/dL 13.0-16.5 [facility] Immature granulocytes/100 WB C Auto (Bld)Ordered By: Jonna Mcintyre on 05-16-2025 Immature granulocytes/100 WBC (Bld) 0.700 % 0.0-0.9 [facility] Comment on above: IG% - Immature Granu locytes (promyelocytes, myelocytes and metamyelocytes) > 1% indicates that a LEFT SHIFT is Present. MCV (mean corpuscular volume ) determinationOrdered By: Jonna Mcintyre on 05-16-2025 MCV (RBC) [Entitic vol] 92.8 fL 80-94 [facility] Mean corpuscular hemoglobin (MCH) determinationOrdered By: Jonna Mcintyre on 05-16-2025 MCH (RBC) [Entitic mass] 30.3 pg 27.0-32.0 [facility] Mean corpuscular hemoglobin concentration (MCHC) determinationOrdered By: Jonna Mcintyre on 05-16-2025 MCHC (RBC) [Mass/Vol] 32.6 g/dL 32-36 [facility] Mean platelet volume determi nationOrdered By: Jonna Mcintyre on 05-16-2025 Platelet mean volume (Bld) [Entitic vol] 9.5 fL 6.2-12.0 [facility] Monocyte percentageOrdered B y: Jonna Mcintyre on 05-16-2025 Monocytes/100 WBC (Bld) 13.0 % High 0-10 [facility] Natriuretic peptide.B prohor dawson N-Terminal [Mass/volume] in Serum or PlasmaOrdered By: Jonna Mcintyre on 05-16-2025 Natriuretic peptide.B prohormone N-Terminal [Mass/Vol] 95 pg/mL <1800 [facility] Comment on above: Heart Failure Unlike ly: < 300 pg/mLHeart Failure Likely< 50 Years: > 450 pg/mL50-75 Years: > 900 pg/mL>75 Years: > 1800 pg/mL Neutrophil percentageOrdered By: Jonna Mcintyre on 05-16-2025 Neutrophils/100 WBC (Bld) 57.8 % 47-70 [facility] Nucleated red blood cell per centageOrdered By: Jonna Mcintyre on 05-16-2025 Nucleated RBC/100 WBC (Bld) [Ratio] 0 % 0-5 [facility] Platelet countOrdered By: Yannick Mcintyre on 05-16-2025 Platelets (Bld) [#/Vol] 248 10*3/uL 150-450 [facility] Potassium measurement (mass/ volume)Ordered By: Jonna Mcintyre on 05-16-2025 Potassium (Unsp spec) [Mass/Vol] 4.2 mmol/L 3.3-5.1 [facility] Comment on above: Hemolysis present, R esults could be affected. Pro- Brain NATRIURETIC PEPTI William 05-16-2025 Natriuretic peptide B (Bld) [Mass/Vol] 95 pg/mL Normal <=1800 [facility] Comment on above: Result Comment: Hear t Failure Unlikely: < 300 pg/mL Heart Failure Likely < 50 Years: > 450 pg/mL 50-75 Years: > 900 pg/mL >75 Years: > 1800 pg/mL Performed By: #### L 501.5663, L100.0100, L503.7505, L500.2500 #### [facility] [address] [place], [address] RBC Auto (Bld) [#/Vol]Ordere d By: Jonna Mcintyre on 05-16-2025 RBC (Bld) [#/Vol] 4.46 10*6/uL Low 4.6-6.2 [facility] Serum creatinine measurement (mass/volume)Ordered By: Jonna Mcintyre on 05-16-2025 Creatinine [Mass/Vol] 1.08 mg/dL 0.70-1.20 [facility] Serum glucose measurement (m ass/volume)Ordered By: Jonna Mcintyre on 05-16-2025 Glucose [Mass/Vol] 103 mg/dL High 70-99 [facility] Serum or plasma calcium richie urement (mass/volume)Ordered By: Jonna Mcintyre on 05-16-2025 Calcium [Mass/Vol] 8.6 mg/dL 7.6-11.0 [facility] Serum or plasma urea nitroge n measurement (mass/volume)Ordered By: Jonna Mcintyre on 05-16-2025 Urea nitrogen [Mass/Vol] 20 mg/dL High 4-19 [facility] Sodium levelOrdered By: Elidia Mcintyre on 05-16-2025 Sodium [Moles/Vol] 139 mmol/L 133-145 [facility] TSH DL <= 0.005 mIU/L QnOrde red By: Jonna Mcintyre on 05-16-2025 TSH Qn 2.950 uIU/mL 0.300-4.200 [facility] Thyroid Stim Hormone (TSH)on 05-16-2025 TSH 2.950 uIU/mL Normal 0.300-4.200 [facility] Comment on above: Performed By: #### L 501.9520, L100.0100, L503.7505, L500.2500 #### [facility] [address] [place], [address] White blood cell (WBC) count Ordered By: Jonna Mcintyre on 05-16-2025 WBC (Bld) [#/Vol] 7.4 10*3/uL 4.4-11.0 [facility] 25(OH)D3 SerPl-mCncon 2024 25-hydroxyvitamin D3 [Mass/Vol] 33.8 ng/mL Normal 31.0-80.0 [facility] Comment on above: Order Comment: Speci men Type: BLOOD SPECIMENOrdering Facility: [facility] Address: [address] [place] [address] Performed By: #### 1 989-3 ####[facility] [id number] [place] [address] [place] CBC panel Auto (Bld)on 03-20 Erythrocyte distribution width (RBC) [Ratio] 13.4 % Normal 11.5-15.0 [facility] Comment on above: Order Comment: Speci men Type: BLOOD SPECIMENOrdering Facility: [facility] Address: [address] [place] [address] Performed By: #### 5 8410-2 ####[facility] [id number] [place] [address] [place] Hematocrit (Bld) [Volume fraction] 43.0 % Normal 39.0-51.0 [facility] Comment on above: Order Comment: Speci men Type: BLOOD SPECIMENOrdering Facility: [facility] Address: [address] [place] [address] Performed By: #### 5 8410-2 ####[facility] [id number] [address] [place] Hemoglobin (Bld) [Mass/Vol] 14.0 g/dL Normal 13.0-17.0 [facility] Comment on above: Order Comment: Speci men Type: BLOOD SPECIMENOrdering Facility: [facility] Address: [address] [place] [address] Performed By: #### 5 8410-2 ####[facility] [id number] [place] [id number] [place] MCH (RBC) [Entitic mass] 30.4 pg Normal 26.0-34.0 [facility] Comment on above: Order Comment: Speci men Type: BLOOD SPECIMENOrdering Facility: [facility] Address: [address] [place] [address] Performed By: #### 5 8410-2 ####[facility] LABCL[facility] [id number] [place] [address] [place] MCHC (RBC) [Mass/Vol] 32.6 g/dL Normal 30.5-36.0 [facility] Comment on above: Order Comment: Speci men Type: BLOOD SPECIMENOrdering Facility: [facility] Address: [address] [place] [address] Performed By: #### 5 8410-2 ####[facility] LABIA [id number] [place] [address] [place] MCV (RBC) [Entitic vol] 93.3 fL Normal 80.0-100.0 [facility] Comment on above: Order Comment: Speci men Type: BLOOD SPECIMENOrdering Facility: [facility] Address: [address] [place] [address] Performed By: #### 5 8410-2 ####[facility] LABIA [id number] [place] [address] [place] Nucleated RBC (Bld) [#/Vol] 10*3/uL Normal <0.01 [facility] Comment on above: Order Comment: Speci men Type: BLOOD SPECIMENOrdering Facility: [facility] Address: [address] [place] [address] Performed By: #### 5 8410-2 ####[facility] LABCLIA [id number] [place] [address] [place] Platelet mean volume (Bld) [Entitic vol] 9.6 fL Normal 9.0-12.7 [facility] Comment on above: Order Comment: Speci men Type: BLOOD SPECIMENOrdering Facility: [facility] Address: [address] [place] [address] Performed By: #### 5 8410-2 ####[facility] LABCLIA [id number] [address] [place] [address] [place] Platelets (Bld) [#/Vol] 266 10*3/uL Normal 150-400 [facility] Comment on above: Order Comment: Speci men Type: BLOOD SPECIMENOrdering Facility: [facility] Address: [address] [place] [address] Performed By: #### 5 8410-2 ####[facility] LABCLIA [id number] [address] [place] [address] [place] RBC (Bld) [#/Vol] 4.61 10*6/uL Normal 4.20-6.00 [facility] Comment on above: Order Comment: Speci men Type: BLOOD SPECIMENOrdering Facility: [facility] Address: [address] [place] [address] Performed By: #### 5 8410-2 ####[facility] LABIA [id number] [address], [facility]95 [place] WBC (Bld) [#/Vol] 7.31 10*3/uL Normal 3.70-11.00 [facility] Comment on above: Order Comment: Speci men Type: BLOOD SPECIMENOrdering Facility: [facility] Address: [address] [place] [address] Performed By: #### 5 8410-2 ####[facility] LABCLIA [id number] [address] [place] [address] [place] Comprehensive metabolic 2000 panelon 03-20-2025 Albumin [Mass/Vol] 4.2 g/dL Normal 3.9-4.9 [facility] Comment on above: Order Comment: Speci men Type: BLOOD SPECIMENOrdering Facility: [facility] Address: [address] [place] [address] Performed By: #### 2 132-9, 25897-9, 01229-8 ####[facility] LABCLIA [id number] [address] [id number] [place] ALP [Catalytic activity/Vol] 76 U/L Normal 38-113 [facility] Comment on above: Order Comment: Speci men Type: BLOOD SPECIMENOrdering Facility: [facility] Address: [address] [place] [address] Performed By: #### 2 132-9, 03072-0, 28065-0 ####[facility] LABCLIA [id number] [facility] [address] [place] ALT [Catalytic activity/Vol] 10 U/L Normal 10-54 [facility] Comment on above: Order Comment: Speci men Type: BLOOD SPECIMENOrdering Facility: [facility] Address: [address] [place] [address] Performed By: #### 2 132-9, 30600-8, 73765-9 ####[facility] LABCLIA [id number] [place] [address] [place] Anion gap [Moles/Vol] 9 mmol/L Normal 8-15 [facility] Comment on above: Order Comment: Speci men Type: BLOOD SPECIMENOrdering Facility: [facility] Address: [address] [place] [address] Performed By: #### 2 132-9, 60855-5, 88249-6 ####[facility] LABCLIA [id number] [place] [address] [place] AST [Catalytic activity/Vol] 25 U/L Normal 14-40 [facility] Comment on above: Order Comment: Speci men Type: BLOOD SPECIMENOrdering Facility: [facility] Address: [address] [place] [address] Performed By: #### 2 132-9, 19193-1, 71794-6 ####[facility] LABCLIA [id number] [address] [address] [place] Bilirubin [Mass/Vol] 0.4 mg/dL Normal 0.2-1.3 [facility] Comment on above: Order Comment: Speci men Type: BLOOD SPECIMENOrdering Facility: [facility] Address: [address] [place] [address] Performed By: #### 2 132-9, 04998-9, 08096-0 ####[facility] LABCLIA [id number] [address] [address] [place] Calcium [Mass/Vol] 9.1 mg/dL Normal 8.5-10.2 [facility] Comment on above: Order Comment: Speci men Type: BLOOD SPECIMENOrdering Facility: [facility] Address: [address] [place] [address] Performed By: #### 2 132-9, 54551-9, ####[facility] LABCLIA [id number] [place] [id number] [place] Chloride [Moles/Vol] 103 mmol/L Normal 98-107 [facility] Comment on above: Order Comment: Speci men Type: BLOOD SPECIMENOrdering Facility: [facility] Address: [address] [place], [place] [address] Performed By: #### 2 132-9, 48377-0, ####[facility] LABCLIA [id number] [place] [address] [place] CO2 [Moles/Vol] 26 mmol/L Normal 22-30 [facility] Comment on above: Order Comment: Speci men Type: BLOOD SPECIMENOrdering Facility: [facility] Address: [address] [place], [place] [address] Performed By: #### 2 132-9, 11253-2, 37644-6 ####[facility] LABCLIA [id number] [place] [address] [place] Creatinine [Mass/Vol] 1.09 mg/dL Normal 0.73-1.22 [facility] Comment on above: Order Comment: Speci men Type: BLOOD SPECIMENOrdering Facility: [facility] Address: [address] [place] [address] Performed By: #### 2 132-9, 86474-2, 68071-5 ####[facility] LABIA [id number] [place] [address] [place] eGFRcr SerPlBld CKD-EPI 2020 69 mL/min/1.73m??? Normal >=60 [facility] Comment on above: Order Comment: Grady baekr Type: BLOOD SPECIMENOrdering Facility: [facility] Address: [address] [place] [address] Result Comment: Lela mated Glomerular Filtration Rate (eGFR) is calculated using the 2020 CKD-EPI creatinine equation. This equation utilizes serum creatinine, sex, and age as parameters. The creatinine assay has traceable calibration to isotope dilution-mass spectrometry. Refer to KDIGO guidelines for clinical interpretation. In patients with unstable renal function, e.g. those with acute kidney injury, the eGFR may not accurately reflect actual GFR. Performed By: #### 2 132-9, 96192-0, ####[facility] LABIA [id number] [place] [address] [place] Glucose [Mass/Vol] 108 mg/dL High 74-99 [facility] Comment on above: Order Comment: Grady baker Type: BLOOD SPECIMENOrdering Facility: [facility] Address: [address] [place] [address] Result Comment: The [place] Diabetes Association (ADA) provides guidance for cutoff [...] Standards of Medical Care in Diabetes 2016, [place] [employer]. Diabetes Care. 2016.39(Suppl 1). Performed By: #### 2 132-9, 90365-5, 55800-8 ####[facility] LABCLIA [id number] [address] [address] [place] Potassium [Moles/Vol] 5.2 mmol/L High 3.7-5.1 [facility] Comment on above: Order Comment: Speci men Type: BLOOD SPECIMENOrdering Facility: [facility] Address: [address] [place] [address] Performed By: #### 2 132-9, 99460-5, ####[facility] LABCLIA [id number] [address] [address] [place] Protein [Mass/Vol] 7.0 g/dL Normal 6.3-8.0 [facility] Comment on above: Order Comment: Speci men Type: BLOOD SPECIMENOrdering Facility: [facility] Address: [address] [place], [place] [address] Performed By: #### 2 132-9, 41715-9, ####[facility] LABCLIA [id number] [address] [address] [place] Sodium [Moles/Vol] 138 mmol/L Normal 136-144 [facility] Comment on above: Order Comment: Speci men Type: BLOOD SPECIMENOrdering Facility: [facility] Address: [address] [place] [address] Performed By: #### 2 132-9, 57598-0, 14649-0 ####[facility] LABCLIA [id number] [address] [address] [place] Urea nitrogen [Mass/Vol] 18 mg/dL Normal 9-24 [facility] Comment on above: Order Comment: Speci men Type: BLOOD SPECIMENOrdering Facility: [facility] Address: [address] [place] [address] Performed By: #### 2 132-9, 25924-7, 92354-4 ####[facility] LABCLIA [id number] [address] [address] [place] Lipid 1996 panelon 5 Cholesterol [Mass/Vol] 153 mg/dL Normal <200 [facility] Comment on above: Order Comment: Speci men Type: BLOOD SPECIMENOrdering Facility: [facility] Address: [address] [place] [address] Result Comment: <200 mg/dL, Desirable 200-239 mg/dL, Borderline high >239 mg/dL, High Performed By: #### 2 132-9, 22215-1, 56436-3 ####[facility] LABCLIA [id number] [address] [place] Cholesterol in HDL [Mass/Vol] 42 mg/dL Normal >39 [facility] Comment on above: Order Comment: Speci men Type: BLOOD SPECIMENOrdering Facility: [facility] Address: [address] [place] [address] Result Comment: 40-5 9 mg/dL, Acceptable >59 mg/dL, High: Negative risk factor for coronary heart disease <40 mg/dL, Low: Positive risk factor for coronary heart disease Performed By: #### 2 132-9, 16296-7, 90213-8 ####[facility] LABCLIA [id number] [place] [id number] [facility] Cholesterol in LDL [Mass/Vol] 91 mg/dL Normal <100 [facility] Comment on above: Order Comment: Speci men Type: BLOOD SPECIMENOrdering Facility: [facility] Address: [address] [place] [address] Result Comment: <100 mg/dL, Optimal 100-129 mg/dL, Near optimal/above optimal 130-159 mg/dL, Borderline high 160-189 mg/dL, High >189 mg/dL, Very high Secondary prevention optimal LDL Cholesterol levels are recommended to be <70 mg/dL LDL cholesterol is calculated using the Tidwell-NIH equation. Performed By: #### 2 132-9, 19536-9, 85189-6 ####[facility] LABCLIA [id number] [address] [address] [place] Cholesterol in LDL/Cholesterol in HDL [Mass ratio] 2.17 {ratio} Normal <2.54 [facility] Comment on above: Order Comment: Speci men Type: BLOOD SPECIMENOrdering Facility: [facility] Address: [address] [place] [address] Result Comment: Refe annyce: 1. National Cholesterol Education Program ATP III Guideline At-A-Glance Quick Desk Reference: National Heart, Lung, and Blood [place]. National Institutes of Health. 2001: NIH Publication No. 01-3305. 2. An International Atherosclerosis Society position paper: global recommendations for the management of dyslipidemia: executive summary, Atherosclerosis. 2014: 232(2):410-413. Performed By: #### 2 132-9, 96646-2, ####[facility] LABCLIA [id number] [place] [address] [place] Cholesterol in VLDL [Mass/Vol] 18 mg/dL Normal <30 [facility] Comment on above: Order Comment: Speci men Type: BLOOD SPECIMENOrdering Facility: [facility] Address: [address] [place] [address] Performed By: #### 2 132-9, 37129-5, ####[facility] LABCLIA [id number] [address] [place] Cholesterol non HDL [Mass/Vol] 111 mg/dL Normal <130 [facility] Comment on above: Order Comment: Speci men Type: BLOOD SPECIMENOrdering Facility: [facility] Address: [address] [place] [address] Result Comment: <130 mg/dL, Optimal 130-159 mg/dL, Near optimal/above optimal 160-189 mg/dL, Borderline high 190-219 mg/dL, High >219 mg/dL, Very high Secondary prevention optimal non HDL Cholesterol levels are recommended to be <100 mg/dL Performed By: #### 2 132-9, 30955-3, 26854-5 ####[facility] LABCLIA [id number] [address] [place] [address] [place] Cholesterol.total/Choles terol in HDL [Mass ratio] 3.64 {ratio} Normal <5.10 [facility] Comment on above: Order Comment: Speci men Type: BLOOD SPECIMENOrdering Facility: [facility] Address: [address] [place] [address] Performed By: #### 2 132-9, 89739-9, ####[facility] LABIA [id number] [address] [address] [place] FASTING TIME 12 hrs Normal [facility] Comment on above: Order Comment: Speci men Type: BLOOD SPECIMENOrdering Facility: [facility] Address: [address] [place] [address] Performed By: #### 2 132-9, , ####[facility] LABCLIA [id number] [address] [place] [address] [place] Triglyceride [Mass/Vol] 112 mg/dL Normal <150 [facility] Comment on above: Order Comment: Speci men Type: BLOOD SPECIMENOrdering Facility: [facility] Address: [address] [place] [address] Result Comment: <150 mg/dL, Normal 150-199 mg/dL, Borderline high 200-499 mg/dL, High >499 mg/dL, Very high Performed By: #### 2 132-9, 77697-2, ####[facility] LABIA [id number] [address] [place] [address] [place] Vit [facility] Cobalamin (Vitamin B12) [Mass/Vol] 1139 pg/mL Normal 232-1245 [facility] Comment on above: Order Comment: Speci men Type: BLOOD SPECIMENOrdering Facility: [facility] Address: [address] [place] [address] Performed By: #### 2 132-9, 39618-9, 40200-0 ####[facility] NICHOLAS [id number] [address] [place] CNOVon 03-17-2025 CNOV Office Visit (INTMWS ) LUÍS HERNANDEZ ([id number]) 1945 M EXC Date Time Provider Department 03/17/25 10:40 AM HAROLDO HOLLIS INTMWS During your visit today, we recorded the following information about you: Pulse Respiration Blood pressure Weight 63/minute 14/minute 116/68 100.2 kg Height 1.753 m Haroldo Hollis MD 03/17/2025 11:12 AM Signed Subjective Luís [...] I, Bmi 30-34.9 Coronary Artery Disease Involving [place] Coronary Artery of [place] Heart Without Angina Pectoris Colon Polyposis Social [...] daily. COMPOUNDED PRESCRIPTION Prostaglandin 30mcg/ml injectable, bimix papaverine/phentolamin e 30mg/0.5mg/ml injectable for penile intracavernosal inj for [...] 25 HYDROXY 6. Coronary artery disease involving [place] coronary artery of [place] heart without angina pectoris - ICD9: 414.01, ICD10: I25.10 - Stable. 7. Myalgia due to statin - ICD9: 729.1, E942.2, ICD10: M79.10, T46.6X5A - Statins not tolerated: MD Bunny Jolley Victor H, MD 03/17/2025 11:05 AM Signed FASTING BLOOD WORK TOMORROW SAKSHI (more content not included)... Normal [facility] Cardiology Visit Reporton Cardiology Visit Report [facility] [address] [place] [address] OFFICE VISIT Date of Service: 01/16/25 MR#: [id number] Acct: [id number] Name: LUÍS HERNANDEZ Rep #: [id number] 1 : 1945 Provider: FATMATA zaragoza Age/Sex: 79/M Location: [facility] Status: Signed HPI HPI History of Present Illness Details: This is a 79-year-old male who presents to the office today for a posthospital follow-up. He was evaluated at [facility] in August 2022 for non-ST elevated myocardial infarction with peak high-sensitivity troponin was 1086. He underwent a heart catheterization that showed normal left main coronary artery, LAD with mild disease, first diagonal vessel with 40% proximal stenosis, LCx with mild disease, dominant RCA with high-grade 95% proximal stenosis, and preserved left ventricular systolic function. He proceeded with drug-eluting stent to proximal RCA. Echocardiogram on 08/25/2022 showed an ejection fraction of 60% and no regional wall motion abnormalities. He also has a past medical history of hypertension and hyperlipidemia. He denies chest, arm, jaw, or neck discomfort. He denies palpitations. He denies bilateral lower extremity edema. He denies claudication. He states shortness of breath with activity such as going up steps. He denies shortness of breath at rest, orthopnea, or PND. He denies chronic cough. He denies significant, sudden weight gain. He states intermittent lightheadedness and dizziness when changes positions in bed. He denies near-syncope or syncope. He denies blood in urine, blood in stool, or epistaxis. He denies fever or chills. He denies myalgia. He states fatigue. His exercise level has remained stable. He is currently in cardiac rehab. 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 Operator Required: No Is patient in pain?: No Allergies codeine Adverse Reaction (Verified 07/06/24 09:03) unknown oxycodone (From Percocet) Adverse Reaction (Verified 07/06/24 09:03) unknown Medications ???Medication ???Instructions ???Recorded ???Confirmed ???Type carbidopa 25 mg-levodopa 100 mg 1 tab PO QHS RLS 06/21/21 01/16/25 History tablet dutasteride 0.5 mg capsule 0.5 mg PO DAILY 01/30/23 01/16/25 History clopidogrel 75 mg tablet (Plavix) 75 mg PO DAILY #90 tabs 02/11/24 01/16/25 Rx metoprolol tartrate 50 mg tablet 50 mg PO BID #180 TABLETS 12/21/24 01/16/25 Rx cholecalciferol (vitamin D3) 25 25 mcg PO QDAY 01/16/25 01/16/25 H istory mcg (1,000 unit) capsule melatonin 3 mg capsule 3 mg PO HS PRN 01/16/25 01/16/25 H istory pravastatin 20 mg tablet 20 mg PO QHS #90 tabs 01/16/2510/11 Rx Ejection fraction %: 60 Have you fallen in the past year?: Yes PFSH Medical History Villous adenoma Alcohol use Thyroid disease Arthritis Prostate disease High cholesterol Back pain History of hiatal hernia Former smoker CPAP (continuous positive airway pressure) dependence Leg cramps History of heart attack Hypertension History of stress test History of echocardiogram Cardiology follow-up encounter Atherosclerosis of coronary artery of [place] heart without angina pectoris NSTEMI, initial episode of care Neuropathy Lightheadedness Uncontrolled hypertension Fatigue Coronary artery calcification seen on CAT scan (12/2016) Insomnia Anxiety Osteoarthritis Hyperlipidemia Obesity Restless legs syndrome (RLS) Obstructive sleep apnea Cervical stenosis of spine BPH (benign prostatic hyperplasia) Essential hypertension Surgical History Hx of colonoscopy History of cardiac catheterization History of coronary artery stent placement ( 08/25/22) History of carpal tunnel surgery History of thyroid surgery Trigger finger History of knee replacement History of herniorrhaphy H/O cervical spine surgery (02/2020) History of transurethral resection of prostate (09/2019) Family History Sister Arthritis Mother Hypertension Other CVA (cerebral vascular accident) Social History Smoking Status: Former smoker quit date: 08/17/97 how long ago did patient quit smokin years ago alcohol intake: current alcohol intake frequency: a few times a week substance use type: does not use caffeine: Yes Type: coffee Number of servings: (more content not included)... [facility] (INTMWS ) DAVIDLUÍS ([id number]) 1945 M EXC Date Time Provider Department 12/13/24 11:40 AM DARY CROFT INTMWS During your visit today, we recorded the following information about you: Pulse Respiration Blood pressure Weight 56/minute 14/minute 116/72 98.8 kg Dary Croft, PLATEMAN.COMMUNITY ARTIST 12/13/2024 11:47 AM Signed We discussed your [...] This has been sent to your preferred [facility] pharmacy in [place]. - Take prednisone with food to avoid [...] contact our office for further evaluation. Dary Croft, PLATEMAN.COMMUNITY ARTIST 12/13/2024 11:52 AM Signed CC: Patient presents with: Back Pain: RT lower into middle x 4 days HPI Recording using [employer] software for draft documentation of the visit was discussed with the patient/authorized medical customer service representative; all questions welcomed and answered. Patient/authorized medical customer service representative agreed to proceed Luís is a [...] infarction) (HCC) 08/29/2022 OLIVA on CPAP 07/29/2022 [facility] Restless legs syndrome (RLS) Stented coronary artery (proximal RCA) 08/29/2022 Umbilical hernia without mention of obstruction or gangrene 06/16/2012 Urine retention 08/19/2019 Vitamin B12 deficiency 09/10/2017 Vitamin D deficiency 09/10/2017 PAST SURGICAL HISTORY Procedure Laterality Date ARTHROSCOPY KNEE DIAGNOSTIC W/WO SYNOVIAL BX SPX 2003 Arthroscopy, knee ARTHROSCOPY KNEE DIAGNOSTIC W/WO SYNOVIAL BX SPX 09/2006 Arthroscopy, knee ARTHRP KNE CONDYLEANDPLATU MEDIALANDLAT COMPARTMENTS 2011 Knee replacement, total lt COLONOSCOPY 05/12/2019 in [place], repeat 3-5 years COLONOSCOPY SCREENING 2003 COLONOSCOPY STOMA W/BIOPSY SINGLE/MULTIPLE 06/2024 CORONARY STENT EA VESSEL 08/25/2022 PTCA/GIUSEPPE Prox. RCA Resolute Adel 4 x 18 mm LAMINECTOMY,CERVICAL 07/04/2020 NASAL/SPHENO (more content not included)... Normal [facility] XR LUMBAR 3V AP/LAT/L5-S1on 12-13-2024 XR LUMBAR 3V AP/LAT/L5-S1 * * *Final Report* * * DATE [...] vasculature. IMPRESSION: Multilevel degenerative changes as detailed. Line Pilot: MATT Transcribe Date/Time: Dec 13 2024 2:52P Dictated by : NICHOLAS BRAVO MD This examination was interpreted and the report reviewed and electronically signed by: NICHOLAS BRAVO MD on Dec 13 2024 2:59PM EST [id number] Normal [facility] XR Lumbar spine 3 Viewson IMPRESSION: Multilevel degenerative changes as detailed. Line Pilot: PSCB Transcribe Date/Time: Dec 13 2024 2:52P Dictated by : NICHOLAS BRAVO MD This examination was interpreted and the report reviewed and electronically signed by: NICHOLAS BRAVO MD on Dec 13 2024 2:59PM [facility] DIVISION OF RADIOLOGY * * *Final Report* * * DATE [...] spine. Heavy atherosclerotic calcification of the vasculature. DIVISION OF RADIOLOGY Provider, [facility] - 12/13/2024 * * *Final Report* * * DATE [...] spine. Heavy atherosclerotic calcification of the vasculature. IMPRESSION IMPRESSION: Multilevel degenerative changes as detailed. Line Pilot: PSCB Transcribe Date/Time: Dec 13 2024 2:52P Dictated by : NICHOLAS BRAVO MD This examination was interpreted and the report reviewed and electronically signed by: NICHOLAS BRAVO MD on Dec 13 2024 2:59PM EST [facility] Radiology Study observation (narrative) Arturo Patricio XR Lumbar spine 3 ViewsOrder ed By: Ccf Provider on 12-13-2024 [facility] PSA,Total- Diagnosticon - PSA, DIAGNOSTIC 2.85 ng/mL Normal 0.0-4.0 [facility] Comment on above: Result Comment: This test was performed using the TPSA assay method for the demandmart chemistry system. Values obtained with different assay methods cannot be used interchangably. When changing PSA assays in the course of monitoring a patient, additional sequential testing should be carried out to confirm baseline values. Performed By: #### L [id number] #### [facility] [address] [place], [address] CNOVon 09-01-2024 CNOV Office Visit (INTMWS ) LUÍS HERNANDEZ ([id number]) 1945 M EXC Date Time Provider Department 09/01/24 8:00 AM HAROLDO HOLLIS INTMWS During your visit today, we recorded the following information about you: Temperature Pulse Respiration Blood pressure 98 degrees 60/minute 16/minute 118/78 Weight Height 99.2 kg 1.759 m Haroldo Hollis MD 09/01/2024 9:42 AM Signed Luís Hernandez [...] Current care team: Patient Care Team: Haroldo Hollis MD as PCP - General (Internal Medicine) Dary Croft APRN.COMMUNITY ARTIST as Lead Instructor/Flight Attendant (Internal Medicine) Outside specialists seen: Dr. Rebekah Ly, ophthalmology. Dr. Mihaela Dunn, urology. Dr. Henri Hooper, cardiology. Dr. Malik Bower, ENT. Dr. Alyssa Stack, [facility] Dermatology. Dr. Hermes Meeks, Gastroenterology. Dr. Alexandru Carpenter, Sleep Medicine. DME supplier: [employer]. Medical/Family history review Reviewed and updated problem list, medical/surgical/famil y/social history, medications, and allergies. Opioid use review [...] BMI 32.06 kg/m? Vision Screening: Follows with optometry/ophthalmolog y Right: 20/40 Left: 20/ 40 Both: 20/40 Assessment/Plan Medicare annual wellness visit, subsequent (Z00.00) - Counseled on healthy diet and regular exercise - Fall avoidance information provided - Personalized prevention plan provided - Discussed need for and benefit of weight loss. BMI 32.06 kg/(m2) Haroldo Hollis MD 09/01/2024 9:42 AM Signed This note was created using [employer]. Subjective Luís Hernandez is a 79 year [...] change. Neurological: Negative for dizziness and headaches. Psychiatric/Behavioral : Negative for sleep disturbance. ACTIVE PROBLEM LIST Psa Elevation Oliva On Cpap Chronic Neck Pain Restless Leg Syndrome Primary Hypertension Hyperlipidemia Stented coronary artery (proximal RCA) Benign Prostatic Hyperplasia Hyperparathyroidism (Hcc) Vitamin D Deficiency Vitamin B12 Deficiency Obesity, Class I, Bmi 30-34.9 Coronary Artery Disease Involving [place] Coronary Artery of [place] Heart Without Angina Pectoris Colon Polyposis Social [...] Sig cyanocobalamin 1,000 mcg/mL Inject 1 mL (more content not included)... Normal [facility] KIDNEY/BLADDERon 08-22-19 25 KIDNEY/BLADDER * * *Final Report* * * DATE OF EXAM: Aug 22 2024 11:34AM [facility] 1055 - US KIDNEY/BLADDER / PROCEDURE REASON: [...] urinary bladder volume. Otherwise normal renal ultrasound Line Pilot: PSCB Transcribe Date/Time: Aug 23 2024 8:54A Dictated by : MERRY RODRIGUEZ MD This examination was interpreted and the report reviewed and electronically signed by: MERRY RODRIGUEZ MD on Aug 23 2024 8:57AM EST [id number] Normal [facility] LU[facility]S HERNANDEZ ([id number]) 1945 M EXC Date Time Provider Department 08/18/24 HAROLDO HOLLIS INTMWS During your visit today, we recorded [...] about a month ago? Patient's pharmacy is [facility]. Please review and advise, JOEL Beltre Victor H, MD 08/19/2024 10:52 AM Signed ASSESSMENT/PLAN: 1. Urinary tract infection without hematuria, site unspecified - ICD9: 599.0, ICD10: N39.0 - AMOXICILLIN 875 MG TABLET - US KIDNEY/BLADDER Schedule follow up with results and annual wellness visit. MD Jerry Jolley Stephanie, RN 08/19/2024 11:20 AM Signed Patient notified of results and provider's instructions. Patient verbalizes understanding. Taylor Perez RN Allergies As of Date: 08/18/2024 Noted Allergy Reaction PERCOCET (OXYCODONE-ACETAMINOPH EN)09/11/2011 5 - Intolerance Comments: Anxiety and slurred words CODEINE 07/22/2005 2 - Rash Comments: itch, nightmares VICODIN (HYDROCODONE-ACETAMINO PHE*02/22/2009 2 - Rash 9 - Itching Date Reviewed: 08/16/2024 Reviewed by: Dary Croft, PLATEMAN.COMMUNITY ARTIST - Fully Assessed Reason for Visit: Results [95] Primary Visit Diagnosis:Urinary tract infection without hematuria, site unspecified [N39.0] Order(s):amoxicillin (AMOXIL) 875 mg tabletTake 1 tablet by mouth two times a day for 7 days.Disp: 14 tabletRfl: 0 US KIDNEY/BLADDER [[id number]] Order #: [id number] FUTURE Prescriptions as of 08/19/2024 - amoxicillin [...] - COMPOUNDED PRESCRIPTION Prostaglandin 30mcg/ml injectable, bimix papaverine/phentolamin e 30mg/0.5mg/ml injectable for penile intracavernosal inj for [...] Encounter Status:Closed by TAYLOR PEREZ on 08/19/24 [facility] Bacteria Culton Bacteria identified Cx Nom (U) ORGANISM ID: 1 >=100,000 CFU/ml Escherichia coli ORGANISM ID: 1 (ESCHERICHIA COLI) -- ANTIBIOTIC INTERPRETATION [place] STATUS REFERENCE RANGE -- Ampicillin S <=2 F Susceptible <=8 , [...] <=32 , Intermediate >32 , Resistant >64 Abnormal [facility] Comment on above: Performed By: #### 6 30-4 ####[facility] LABCLIA [id number] [place] [id number] [place] [facility] CNOVon 08-16-2024 CNOV Office Visit (INTMWS ) LUÍS HERNANDEZ ([id number]) 1945 Karthik EXC Date Time Provider Department 08/16/24 9:20 AM DARY CROFT INTMWS During your visit today, we recorded the following information about you: Pulse Respiration Blood pressure Weight 58/minute 14/minute 124/72 100.3 kg Dary Croft, BERTA.COMMUNITY ARTIST 08/16/2024 9:46 AM Signed CC: Patient presents [...] infarction) (HCC) 08/29/2022 OLIVA on CPAP 07/29/2022 [facility] Restless legs syndrome (RLS) Stented coronary artery [...] Knee replacement, total lt COLONOSCOPY 05/12/2019 in [place], repeat 3-5 years COLONOSCOPY SCREENING 2003 CORONARY STENT EA VESSEL 08/25/2022 PTCA/GIUSEPPE Prox. RCA Resolute Adel 4 x 18 mm LAMINECTOMY,CERVICAL 07/04/2020 NASAL/SPHENOID SINUS ENDOSCOPY,DX 10/07/2005 removal of cyst in sinus PARATHYROIDECTOMY/EXPL ORATION PARATHYROIDS 2017 Dr Cl goldsmith w/ dr Brooke PAST SURGICAL HISTORY OF 2011 BCC excision of chest PAST SURGICAL HISTORY OF Right trigger finger RPR 1ST INGUN HRNA AGE 6 YRS/> REDUCIBLE 1988 Hernia repair, inguinal double TOTAL KNEE REPLACEMENT Right 2014 TRANSURETHRAL ELEC-SURG PROSTATECTOM 2020 VASECTOMY UNI/BI SPX W/POSTOP SEMEN EXAMS 1990 ALLERGIES Percocet [Oxycodone-Acetaminoph en], Codeine, and Vicodin [Hydrocodone-Acetamino phen] MEDICATIONS cyanocobalamin 1,000 mcg/mL Inject 1 mL [...] mouth. COMPOUNDED PRESCRIPTION Prostaglandin 30mcg/ml injectable, bimix papaverine/phentolamin e 30mg/0.5mg/ml injectable for penile intracavernosal inj for ED FAMILY HISTORY Problem Relation Age of Onset Hypertension Mother Stroke Mother Cancer Father lung - smoker Social History Tobacco Use Smoking status: Former Current packs/day: 1.00 Types: Cigarettes Smokeless tobacco: Never Tobacco comments: Quit over 30 years ago Vaping Use Vap (more content not included)... Normal [facility] UA DIP, URINE (POC)on 2023 BILIRUBIN UA (POCT) Negative Negative [facility] CLARITY UA (POCT) Clear [facility] COLOR UA (POCT) Yellow [facility] GLUCOSE UA (POCT) Negative Negative mg/dL [facility] Hemoglobin Ql (U) Small Abnormal Negative [facility] Interpretation and review of laboratory results Abnormal [facility] KETONE UA (POCT) Negative Negative mg/dL [facility] LEUKOCYTES UA (POCT) Small Abnormal Negative [facility] NITRITE UA (POCT) Negative Negative [facility] PH UA (POCT) 5.5 4.5 - 8.0 [facility] Protein Ql (U) 30 mg/dL Abnormal Negative [facility] SPECIFIC GRAVITY UA (POCT) 1.020 1.005 - 1.030 [facility] UROBILINOGEN UA (POCT) 0.2 Dalila l E.U./dL [facility] Location:[address], [place], [place], [id number] [place] [address] POINT OF CARE [facility] CNOVon 07-30-2024 CNOV Office Visit (INTMWS ) LUÍS HERNANDEZ ([id number]) 1945 M EXC Date Time Provider Department 07/30/24 11:20 AM HAROLDO HOLLIS INTMWS During your visit today, we recorded the following information about you: Pulse Respiration Blood pressure Weight 76/minute 16/minute 128/80 98.1 kg Haroldo Hollis MD 07/30/2024 11:[address] Dunn for follow up. Haroldo Hollis MD 07/30/2024 12:24 PM Signed This note was created using [employer]. Subjective Luís Hernandez is a 79 year [...] daily. COMPOUNDED PRESCRIPTION Prostaglandin 30mcg/ml injectable, bimix papaverine/phentolamin e 30mg/0.5mg/ml injectable for penile intracavernosal inj for [...] - See urology for follow up. Haroldo Hollis MD Allergies As of Date: 07/30/2024 Noted Allergy Reaction PERCOCET (OXYCODONE-ACETAMINOPH EN)09/11/2011 5 - Intolerance Comments: Anxiety and slurred words CODEINE 07/22/2005 2 - Rash Comments: itch, nightmares VICODIN (HYDROCODONE-ACETAMINO PHE*02/22/2009 2 - Rash 9 - Itching Date Reviewed: 07/30/2024 Reviewed by: Kalie Harrison MA - Fully Assessed Reason for Visit: Recheck [92] Cmt: Follow up UTI, still having symptoms Primary Visit Diagnosis:Urinary tract infection with hematuria, site unspecified [N39.0, R31.9] Order(s):UA DIP, URINE (POC) [[id number]] Order #: [id number]. #:[id number] amoxicillin (AMOXIL) 8 (more content not included)... Normal [facility] UA DIP, URINE (POC)on 2023 BILIRUBIN UA (POCT) Negative Negative [facility] CLARITY UA (POCT) Cloudy [facility] COLOR UA (POCT) Yellow [facility] GLUCOSE UA (POCT) Negative Negative mg/dL [facility] Hemoglobin Ql (U) Large Abnormal Negative [facility] Interpretation and review of laboratory results Abnormal [facility] KETONE UA (POCT) Negative Negative mg/dL [facility] LEUKOCYTES UA (POCT) Small Abnormal Negative [facility] NITRITE UA (POCT) Negative Negative [facility] PH UA (POCT) 5.5 4.5 - 8.0 [facility] Protein Ql (U) >=300 Abnormal Negative mg/dL [facility] SPECIFIC GRAVITY UA (POCT) >=1.030 1.005 - 1.030 [facility] UROBILINOGEN UA (POCT) 0.2 Dalila l E.U./dL [facility] Location:[address], [id number] [place] [address] POINT OF CARE [facility] Bacteria Ur Culton 4 Bacteria identified Cx Nom (U) ORGANISM ID: 1 >=100,000 CFU/ml Escherichia coli ORGANISM ID: 1 (ESCHERICHIA COLI) -- ANTIBIOTIC INTERPRETATION [place] STATUS REFERENCE RANGE -- Ampicillin S <=2 F Susceptible <=8 , [...] <=32 , Intermediate >32 , Resistant >64 Abnormal [facility] Comment on above: Performed By: #### 6 30-4 ####[facility] NICHOLAS [id number] [place] [id number] [place] CNOVon 07-20-2024 CNOV Office Visit (INTMWS ) LUÍS HERNANDEZ ([id number]) 1945 M EXC Date Time Provider Department 07/20/24 9:00 AM DARY CROFT INTMWS During your visit today, we recorded the following information about you: Temperature Pulse Respiration Blood pressure 98.4 degrees 73/minute 16/minute 137/96 Weight 100 kg Dary Croft, PLATEMAN.COMMUNITY ARTIST 07/20/2024 9:32 AM Signed CC: Patient presents [...] infarction) (HCC) 08/29/2022 OLIVA on CPAP 07/29/2022 [facility] Restless legs syndrome (RLS) Stented coronary artery (proximal RCA) 08/29/2022 Umbilical hernia without mention of obstruction or gangrene 06/16/2012 Urine retention 08/19/2019 Vitamin B12 deficiency 09/10/2017 Vitamin D deficiency 09/10/2017 PAST SURGICAL HISTORY Procedure Laterality Date ARTHROSCOPY KNEE DIAGNOSTIC W/WO SYNOVIAL BX SPX 2003 Arthroscopy, knee ARTHROSCOPY KNEE DIAGNOSTIC W/WO SYNOVIAL BX SPX 09/2006 Arthroscopy, knee ARTHRP KNE CONDYLEANDPLATU MEDIALANDLAT COMPARTMENTS 2011 Knee replacement, total lt COLONOSCOPY 05/12/2019 in [place], repeat 3-5 years COLONOSCOPY SCREENING 2004 CORONARY STENT EA VESSEL 08/25/2022 PTCA/GIUSEPPE Prox. RCA Resolute Óscar 4 x 18 mm LAMINECTOMY,CERVICAL 07/04/2020 NASAL/SPHENOID SINUS ENDOSCOPY,DX 10/07/2005 removal of cyst in sinus PARATHYROIDECTOMY/EXPL ORATION PARATHYROIDS 2017 Dr Cl goldsmith w/ dr Brooke PAST SURGICAL HISTORY OF 2010 BCC excision of chest PAST SURGICAL HISTORY OF Right trigger finger RPR 1ST INGUN HRNA AGE 6 YRS/> REDUCIBLE 1987 Hernia repair, inguinal double TOTAL KNEE REPLACEMENT Right 2014 TRANSURETHRAL ELEC-SURG PROSTATECTOM 2020 VASECTOMY UNI/BI SPX W/POSTOP SEMEN EXAMS 1990 ALLERGIES Percocet [Oxycodone-Acetaminoph en], Codeine, and Vicodin [Hydrocodone-Acetamino phen] MEDICATIONS cyanocobalamin 1,000 mcg/mL Inject 1 mL [...] daily. COMPOUNDED PRESCRIPTION Prostaglandin 30mcg/ml injectable, bimix papaverine/phentolamin e 30mg/0.5mg/ml injectable for penile intracavernosal inj for [...] kg (220 lb 7.4 oz) BMI 30.75 k (more content not included)... Normal [facility] UA DIP, URINE (POC)on 2023 BILIRUBIN UA (POCT) Negative Negative [facility] CLARITY UA (POCT) Clear [facility] COLOR UA (POCT) Yellow [facility] GLUCOSE UA (POCT) Negative Negative mg/dL [facility] Hemoglobin Ql (U) Moderate Abnormal Negative [facility] Interpretation and review of laboratory results Abnormal [facility] KETONE UA (POCT) Negative Negative mg/dL [facility] LEUKOCYTES UA (POCT) Small Abnormal Negative [facility] NITRITE UA (POCT) Positive Abnormal Negative [facility] PH UA (POCT) 5.5 4.5 - 8.0 [facility] Protein Ql (U) 100 mg/dL Abnormal Negative [facility] SPECIFIC GRAVITY UA (POCT) 1.025 1.005 - 1.030 [facility] UROBILINOGEN UA (POCT) 0.2 Dalila l E.U./dL [facility] Location:[facility], [address] [place] [address], [place], [address] [facility] POINT OF CARE [facility] Colonoscopy Reporton 024 Colonoscopy Report [facility] Medical Records Department [address] [place] [address] Colonoscopy Report MR#: [id number] Acct: [id number] Name: LUÍS HERNANDEZ Rep #: [id number] : 1945 79 From: Devin Meeks DO PCP: Dr. Haroldo Hollis MD Status:REG [facility] Patient Name: Luís Hernandez Procedure Date: 07/06/2024 10:02 AM Date of : 1945 Age: 79 Procedure: Colonoscopy Indications: High risk colon cancer surveillance: Personal history of colonic polyps Providers: Devin Meeks DO Referring MD: Devin Meeks DO Medicines: Monitored Anesthesia Care Patient Profile: This is a 79 year old male. Refer to note in patient chart for documentation of history and physical. Last Colonoscopy: 6 months ago. Complications: No immediate complications. Procedure: Pre-Anesthesia Assessment: - Prior to the procedure, a History and Physical was performed, and patient medications and allergies were reviewed. The patient is competent. The risks and benefits of the procedure and the sedation options and risks were discussed with the patient. All questions were answered and informed consent was obtained. Patient identification and proposed procedure were verified by the physician in the pre-procedure area. Mental Status Examination: alert and oriented. Airway Examination: normal oropharyngeal airway and neck mobility. Respiratory Examination: clear to auscultation. Prophylactic Antibiotics: The patient does not require prophylactic antibiotics. Prior Anticoagulants: The patient has taken no anticoagulant or antiplatelet agents except for NSAID medication. ASA Grade Assessment: II - A patient with mild systemic disease. After reviewing the risks and benefits, the patient was deemed in satisfactory condition to undergo the procedure. The anesthesia plan was to use monitored anesthesia care (MAC). Immediately prior to administration of medications, the patient was re-assessed for adequacy to receive sedatives. The heart rate, respiratory rate, oxygen saturations, blood pressure, adequacy of pulmonary ventilation, and response to care were monitored throughout the procedure. The physical status of the patient was re-assessed after the procedure. After I obtained informed consent, the scope was passed under direct vision. Throughout the procedure, the patient's blood pressure, pulse, and oxygen saturations were monitored continuously. The Colonoscope was introduced through the anus and advanced to the cecum, identified by appendiceal orifice and ileocecal valve. The colonoscopy was performed without difficulty. The patient tolerated the procedure well. The quality of the bowel preparation was adequate. The ileocecal valve, appendiceal orifice, and rectum were photographed. Scope In: 10:06:15 AM Scope Withdrawal Time 0 hours 17 minutes 3 seconds Scope Out: 10:29:28 AM Total Procedure Duration Time 0 hours 23 minutes 13 seconds Findings: The perianal and digital rectal examinations were normal. A few small-mouthed diverticula were found in the recto-sigmoid colon. Four sessile polyps were found in the hepatic flexure. The polyps were 7 mm in size. These polyps were removed with a jumbo cold forceps. Resection and retrieval were complete. Verification of patient identification for the specimen was done. Estimated blood loss was minimal. A 15 mm polyp was found in the hepatic flexure. The polyp was sessile. The polyp was removed with a hot snare. Resection and retrieval were complete. Verification of patient identification for the specimen was done. Estimated blood loss was minimal. To close a defect after polypectomy, one hemostatic clip was successfully placed. 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 There was no bleeding at the end of the procedure. Impression: - Diverticulosis in the recto-sigmoid colon. - Four 7 mm polyps at the hepatic flexure, removed with a jumbo cold forceps. Resected and retrieved. - One 15 mm polyp at the hepatic flexure, removed with a hot snare. Resected and retrieved. Recommendation: - Repeat colonoscopy in 3 years for surveillance. - Continue present medications. Procedure Code(s): --- Professional --- 66294, Colonoscopy, flexible; with removal of tumor(s), polyp(s), or other lesion(s) by snare technique 38250, 59, Colonoscopy, flexible; with biopsy, single or multiple CPT copyright 2021 [employer]. All rights reserved. The codes documented in this report are preliminary and upon egg crater review may be revised to meet current compliance requirements. Devin Meeks DO 07/06/2024 10:34:39 AM This report has been signed electronically. Number of Addenda: 0 Note Initiated On: 07/06/2024 10:02 AM 07/06/24 1034 Date Devin Chaney (more content not included)... [facility] MR/POSTOP.ANEon 07-06-2024 MR/POSTOP.[facility] Medical Records Department [address] [place] [address] Anesthesia Postop Eval I 07/06/24 1041 MR#: [id number] Acct: [id number] Name: LUÍS HERNANDEZ Rep #: [id number] : 1945 79 From: Mauri Churchill PCP: Dr. Haroldo Hollis MD Status:[facility] Y Race: C Location: [place] [address] Anesthesia: Postop Eval I Current Vital Signs Temperature: 97.1 F Pulse Rate: 71 Blood Pressure: 100/67 Respiratory Rate: 16 Pulse Ox: 97 Oxygen Delivery Method: Room Air Assessment Airway patent: Yes Spontaneous unlabored respirations: Yes Mental status: Asleep nausea: No Vomiting: No Anesthesia Complication: No Fluid Hydration Crystalloid volume administer (ml): 40 Total IV fluid infused: 40 Progress Note Anesthesia document: Postop Eval 1 completed: Yes 07/06/24 104 Date Mauri Hay Signature: Date CC: Signed [facility] MR/[id number] 07-06-2024 MR/POSTOPAN2 [facility] Medical Records Department [address] [place] [address] Anesthesia Postop Eval II 07/06/24 1151 MR#: [id number] Acct: [id number] Name: LUÍS HERNANDEZ Rep #: [id number] : 1945 79 From: Deng Rosales MD PCP: Dr. Haroldo Hollis MD Status:[facility] Y Race: C Location: EN Anesthesia Postop Eval I Sum Postop Eval Completion status Anesthesia document: Postop Eval 1 completed: Yes Anesthesia Postop Eval I Summary Anesthesia Postop Eval I Summary: Anesthesia Postop Eval I: Assessment Summary Airway patent Yes 07/06/24 10:41 [email or web address] Spontaneous unlabored Yes 07/06/24 10:41 [email or web address] respirations Mental status Asleep 07/06/24 10:41 [email or web address] nausea No 07/06/24 10:41 [email or web address] Vomiting No 07/06/24 10:41 [email or web address] Anesthesia Postop Eval I: Fluid Summary Crystalloid volume administer 40 07/06/24 10:41 [email or web address] (ml) Colloids volume administered ( ml) Blood Product volume administered (ml) Total IV fluid infused 40 07/06/24 10:41 [email or web address] Anesthesia Postop Eval I: Summary Notes Anesthesia Complication No 07/06/24 10:41 [email or web address] Anesthesia Complication Comment: Post-operative progress note Anesthesia: Postop Eval II Evaluation Mental status: Awake Pain Level: 0 nausea: No Vomiting: No 07/06/24 1151 Date Deng Hay Signature: Date CC: Signed Normal [facility] Surgery Specimen Level Eric 07-06-2024 Surgery Specimen Level IV ---- Patient Age/Sex Location Account Attending Physician ---- DAVIDLUÍS 79/M EN [id number] Devin Meeks DO ---- Specimen: [id number] Received: 07/06/24 Status: GLADYS Boyd Num: [id number] Spec Type: COLON BX Subm Dr: Devin Meeks DO HEADER OPERATION: Colonoscopy with biopsy, hemostasis and polypectomy PRE-OP DIAGNOSIS: Villous adenoma, history of colonic polyps TISSUE SUBMITTED: A- Hepatic flexure polyp biopsy x3, B- Hepatic flexure polyp ---- MICROSCOPIC DIAGNOSIS A. Hepatic flexure polyp x3, biopsy: Fragments of tubular adenoma. B. Hepatic flexure polyp, polypectomy: Tubulovillous adenoma. 07/07/2024 MICROSCOPIC DESCRIPTION Slides are reviewed. GROSS DESCRIPTION A. Received in fixative is one container labeled with the patient's name and designated Hepatic flexure polyp biopsy. The specimen consists of multiple irregular fragments of light larry soft tissue that in aggregate measure 1.0 x 0.6 x 0.1 cm. The specimen is totally submitted in one cassette. B. Received in fixative is one container labeled with the patient's name and designated Hepatic flexure polyp. The specimen consists of a pink-red polyp measuring 0.9 x 0.9 x 0.6 cm. The presumed base is inked. The polyp is serially sectioned and submitted entirely in one cassette. 07/06/2024 TC:1 CPT:45253u2 ---- Patient Age/Sex Location Account Attending Physician ---- LUÍS HERNANDEZ 79/M EN [id number] Devin Meeks DO ---- Signed (signature on file) Dr. Cale Aviles MD 07/07/24 1210 ---- Normal [facility] Comment on above: Performed By: #### P MARLENA #### [facility] [place], [address] Inital Evaluation (1) - PTon 07-04-2024 Inital Evaluation (1) - PT [facility] [address] [place] [address] / REHABILITATION SERVICES INITIAL EVALUATION MR#: [id number] Acct: [id number] Name: LUÍS HERNANDEZ Rep #: [id number] : 1945 79 From: Farzana BO Referring Dr.: Monserrat Stanford PA-C Status: REG RCR Insurance: [employer] MEDICARE PPO SELF PAY INSURANCE Patient's Visit Information Visit Information Visit Information: LUÍS HERNANDEZ is a 79 year old M referred to Physical Therapy by Monserrat Stanford PA-C with a diagnosis of DDD thoracic and scoliosis. Date of Evaluation: 07/04/24 Physical Therapist: BETZY May Visit Plan Frequency: 2x /Week Duration: 6 Weeks Plan: 2X/ week for 6 weeks for thoracic strengthening, postural exercises with HEP (wall posture with feet a little away from the wall, green mid rows ) (Pt has a had a neck fusion and an injured L shoulder to watch out for) Subjective Subjective: He has pain all the time and it is like a muscle strain in the middle of his back and under L arm and up the L side of his arm. He went to [facility] a few weeks ago and basically said he had DDD throughout his spine. He had neck fusion 2 years ago. He is getting scoliosis also. He sees Dr Massey and he does shockwave and adjustments but he feels that he needs work on his muscles to hold his neck up and posture. Dr Almonte said that his L RC is weak. He is able to sleep. He is relived somewhat relieved when laying down. He has L arm N T prob for the last 6-8 months. Pain neck pain: Pain Intensity (Out of 10): 7 Thoracic pain: Pain Intensity (Out of 10): 7 L shoulder pain: Pain Intensity (Out of 10): 7 Objective Objective: Gait: normal gait pattern except neck is flexed with gait: Sitting posture: Rounder shoulders, flexed head, Increase PPT, He struggles to look up UE AROM: Full AROM of B shoulders C-spine AROM: flexion 100%, ext to neutral, Rot B 25%, SB B 5% each direction. Pt likes to flex his neck because it is comfortable [employer] strength (R handed) R 80 and L 60 Wall posture: head is about 2 inches from the wall in standing UE MMT: Shoulder flexion R 9.8 and L 12.4 ER R 14.6 and L 17.9 Discussed posture and ideas throughout the day to check his posture. Balance/Special Test Scores Oswestry Low Back Score: 12 Goals Goal 1:: I HEP Goal Time Frame: 6-8 Weeks Goal 2:: Improve wall posture (neck was approx 2 inches from the wall at eval). Goal Time Frame: 6-8 Weeks Goal 3:: Sit with upright posture and less FW head with no thoracic pain Goal Time Frame: 6-8 Weeks Rehabilitation Potential Rehabilitation Potential: Good Anticipated Interventions Patient/Client Instruction: Educate patient on: Condition and Plan of Care For the Purpose of:: To decrease pain, To increase ROM, To improve nutrient delivery to tissue, To improve muscle performance and motor function, To improve ability to perform ADL's, To improve health of tissue, To decrease soft tissue restriction and To increase flexibility/ROM Therapeutic Exercise to Include: Strength training, Body mechanics, Postural training, Flexibilty training, Gait and locomotor training, Neuromotor development, Passive ROM, Active ROM and Scapular Strength/Stabilization For the Purpose of:: To decrease pain, To increase ROM, To improve nutrient delivery to tissue, To improve muscle performance and motor function, To improve ability to perform ADL's, To increase tolerance to activity/condition/pos ition, To improve performance and independence with ADL's, To improve gait and locomotor functions, To improve health of tissue, To decrease soft tissue restriction and To increase flexibility/ROM Manual Therapy Techniques to Include: Passive ROM and Soft tissue mobilization For the Purpose of:: To decrease pain, To improve nutrient delivery to tissue, To increase tolerance to activity/condition/pos ition, To improve health of tissue, To decrease soft tissue restriction and To increase flexibility/ROM Text: Thank you for the opportunity to evaluate your patient. For Medicare and Medicare HMO plans, please review the plan of care and approve it. It will need to be FAXED BACK to us at [phone] for Medicare purposes. For Medicare only, by signing this I certify the plan of care. Please let me know if there are questions or concerns regarding this plan of care. Physician Signature: Date:__ 07/04/24 1030 CC: WILNER Stanford; Dr. Haroldo Hollis MD Signed Normal [facility] Inital Evaluation (1) - PT [facility] Physical Therapy [facility] [address] [place] [address] / REHABILITATION SERVICES INITIAL EVALUATION MR#: [id number] Acct: [id number] Name: LUÍS HERNANDEZ Rep #: [id number] : 1945 79 From: [place] BO Referring Dr.: Monserrat Stanford PA-C Status: REG RCR Insurance: [employer] MEDICARE PPO SELF PAY INSURANCE Patient's Visit Information Visit Information Visit Information: LUÍS HERNANDEZ is a 79 year old M referred to Physical Therapy by Monserrat Stanford PA-C with a diagnosis of DDD thoracic and scoliosis. Date of Evaluation: 07/04/24 Physical Therapist: BETZY May Visit Plan Frequency: 2x /Week Duration: 6 Weeks Plan: 2X/ week for 6 weeks for thoracic strengthening, postural exercises with HEP (wall posture with feet a little away from the wall, green mid rows ) (Pt has a had a neck fusion and an injured L shoulder to watch out for) Subjective Subjective: He has pain all the time and it is like a muscle strain in the middle of his back and under L arm and up the L side of his arm. He went to [facility] a few weeks ago and basically said he had DDD throughout his spine. He had neck fusion 2 years ago. He is getting scoliosis also. He sees Dr Massey and he does shockwave and adjustments but he feels that he needs work on his muscles to hold his neck up and posture. Dr Almonte said that his L RC is weak. He is able to sleep. He is relived somewhat relieved when laying down. He has L arm N T prob for the last 6-8 months. Pain neck pain: Pain Intensity (Out of 10): 7 Thoracic pain: Pain Intensity (Out of 10): 7 L shoulder pain: Pain Intensity (Out of 10): 7 Objective Objective: Gait: normal gait pattern except neck is flexed with gait: Sitting posture: Rounder shoulders, flexed head, Increase PPT, He struggles to look up UE AROM: Full AROM of B shoulders C-spine AROM: flexion 100%, ext to neutral, Rot B 25%, SB B 5% each direction. Pt likes to flex his neck because it is comfortable [employer] strength (R handed) R 80 and L 60 Wall posture: head is about 2 inches from the wall in standing UE MMT: Shoulder flexion R 9.8 and L 12.4 ER R 14.6 and L 17.9 Discussed posture and ideas throughout the day to check his posture. Balance/Special Test Scores Oswestry Low Back Score: 12 Goals Goal 1:: I HEP Goal Time Frame: 6-8 Weeks Goal 2:: Improve wall posture (neck was approx 2 inches from the wall at eval). Goal Time Frame: 6-8 Weeks Goal 3:: Sit with upright posture and less FW head with no thoracic pain Goal Time Frame: 6-8 Weeks Rehabilitation Potential Rehabilitation Potential: Good Anticipated Interventions Patient/Client Instruction: Educate patient on: Condition and Plan of Care For the Purpose of:: To decrease pain, To increase ROM, To improve nutrient delivery to tissue, To improve muscle performance and motor function, To improve ability to perform ADL's, To improve health of tissue, To decrease soft tissue restriction and To increase flexibility/ROM Therapeutic Exercise to Include: Strength training, Body mechanics, Postural training, Flexibilty training, Gait and locomotor training, Neuromotor development, Passive ROM, Active ROM and Scapular Strength/Stabilization For the Purpose of:: To decrease pain, To increase ROM, To improve nutrient delivery to tissue, To improve muscle performance and motor function, To improve ability to perform ADL's, To increase tolerance to activity/condition/pos ition, To improve performance and independence with ADL's, To improve gait and locomotor functions, To improve health of tissue, To decrease soft tissue restriction and To increase flexibility/ROM Manual Therapy Techniques to Include: Passive ROM and Soft tissue mobilization For the Purpose of:: To decrease pain, To improve nutrient delivery to tissue, To increase tolerance to activity/condition/pos ition, To improve health of tissue, To decrease soft tissue restriction and To increase flexibility/ROM Text: Thank you for the opportunity to evaluate your patient. For Medicare and Medicare HMO plans, please review the plan of care and approve it. It will need to be FAXED BACK to us at [phone] for Medicare purposes. For Medicare only, by signing this I certify the plan of care. Please let me know if there are questions or concerns regarding this plan of care. Physician Signature: Date:__ 07/04/24 1029 CC: WILNER Stanford; Dr. Haroldo Hollis MD Signed Normal [facility] 06-01-2024 [facility] Telephone (INT[facility]WS) LUÍS HERNANDEZ ([id number]) 1945 M EXC Date Time Provider Department 06/01/24 HAROLDO HOLLIS INTMWS During your visit today, we recorded the following information about you: Joceline Castro LPN 06/01/2024 8:54 AM Signed Patient calling, would like a recommendation on for a senior care specialist. States he has been having middle back pain for 1 month and would like to see someone. Please advise. Haroldo Hollis MD 06/01/2024 9:37 AM Signed Schedule appointment here first for evaluation. Isaias River, JOEL 06/01/2024 1:37 PM Signed Spoke with patient. Given message from provider's office. Patient verbalizes understanding. Appointment scheduled. 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. Values obtained with differentassay methods cannot be used interchangably.When changing PSA assays in the course of monitoring apatient, additional sequential testing should be carriedout to confirm baseline values. Basophil percentageOrdered B y: Dr. Hooper on 01-30-2023 Bilirubin [Mass/Vol] 0.50 mg/dL 0.20-1.00 [facility] Comment on above: For patients on eltr ombopag therapy, use of Dimension [place] TBIL is not recommended. Cholesterol [Mass/Vol] 121 mg/dL <200 [facility] Comment on above: <200 mg/dL Desirable 200-240 mg/dL Borderline >240 mg/dL High Risk Protein [Mass/Vol] 7.2 g/dL 6.4-8.2 [facility] Triglyceride [Mass/Vol] 110 mg/dL <199 [facility] Comment on above: The drugs N-Acetylcy steine and Metamizole may falsely depress this assay.Serum Triglycerides Reference Interval Normal <150 mg/dL Borderline high 150 - 199 mg/dL High 200 - 499 mg/dL Very High > or = 500 mg/dL Direct bilirubinOrdered By: Dr. Hooper on 01-30-2023 Bilirubin.direct [Mass/Vol] 0.19 mg/dL 0.00-0.30 [facility] - Chemistry and C hemistry - challengeOrdered By: Dr. Hooper on 01-30-2023 ALP [Catalytic activity/Vol] 73 U/L 45-117 [facility] ALT [Catalytic activity/Vol] 23 U/L 16-61 [facility] Globulin (S) [Mass/Vol] 3.6 g/dL 2.2-4.2 [facility] Serum or plasma albumin richie urement (mass/volume)Ordered By: Dr. Hooper on 01-30-2023 Albumin [Mass/Vol] 3.6 g/dL 3.2-5.0 [facility] Serum or plasma cholesterol in HDL measurement (mass/volume)Ordered By: Dr. Hooper on 01-30-2023 Cholesterol in HDL [Mass/Vol] 59 mg/dL >40 [facility] Comment on above: The drugs N-Acetylcy steine and Metamizole may falsely depress this assay. Reference Range HDL <40 mg/dL Low HDL Cholesterol HDL >or= 60 mg/dL High HDL Cholesterol Serum or plasma cholesterol in VLDL measurement (mass/volume)Ordered By: Dr. Hooper on 01-30-2023 Cholesterol in VLDL [Mass/Vol] 22 mg/dL 5-40 [facility] Serum or plasma low density lipoprotein (LDL) cholesterol measurement (mass/volume)Ordered By: Dr. Hooper on 01-30-2023 Cholesterol in LDL [Mass/Vol] 40 mg/dL 0-130 [facility] Thin prep Papanicolaou smear with manual screeningOrdered By: Dr. Hooper on 01-30-2023 Thin prep Papanicolaou smear with manual screening 17 U/L 15-37 [facility] No Panel InformationOrdered By: Dr. Hooper on 10-16-2022 Troponin I High Sensitivity 7 pg/mL 3.0-78.0 [facility] Comment on above: Please Note: New [place]ra t Units and Gender Specific Reference Ranges. For more information see Policy Stat Procedure [place] High Sensitivity Troponin (TNIH) and attachments. Absolute lymphocyte countOrd ered By: Yeyo Christopher on 08-30-2022 Lymphocytes Auto (Unsp spec) [#/Vol] 1.57 10*3/uL 0.83-4.51 [facility] Amorphous sediment detection in urine sediment by light microscopyOrdered By: Yeyo Christopher on 08-30-2022 Amorphous sediment LM Ql (Urine sed) 1+ URATE [facility] Basophil percentageOrdered B y: Yeyo Christopher on 08-30-2022 Basophils/100 WBC (Bld) 0.7 % 0-1 [facility] Chloride [Moles/Vol] 106 mmol/L 98-107 [facility] Eosinophils/100 WBC (Bld) 3.6 % 0-5 [facility] Glucose [Mass/Vol] 104 mg/dL 74-106 [facility] Comment on above: Fasting Glucose resu lt from 100 to 125 mg/dL suggests IMPAIRED HOMEOSTASIS per A.D.A. criteria. Neutrophils (Bld) [#/Vol] 5.4 10*3/uL 2.0-7.7 [facility] Neutrophils/100 WBC (Bld) 64.4 % 47-70 [facility] Potassium [Moles/Vol] 3.7 mmol/L 3.5-5.1 [facility] Sodium [Moles/Vol] 139 mmol/L 136-145 [facility] WBC (Bld) [#/Vol] 8.4 10*3/uL 4.4-11.0 [facility] Basophil percentage 0 SEEN /hpf 0-5 [facility] Bilirubin Test strip Ql (U)O rdered By: Yeyo Christopher on 08-30-2022 Bilirubin Ql (U) Negative Negative [facility] Blood erythrocytes count (nu mber/volume)Ordered By: Yeyo Christopher on 08-30-2022 RBC (Bld) [#/Vol] 4.66 10*6/uL 4.6-6.2 [facility] Blood hemoglobin measurement (mass/volume)Ordered By: Yeyo Christopher on 08-30-2022 Hemoglobin (Bld) [Mass/Vol] 13.9 g/dL 13.0-16.5 [facility] Blood lymphocytes/100 leukoc ytesOrdered By: Yeyo Christopher on 08-30-2022 Lymphocytes/100 WBC (Bld) 18.6 % 19-41 [facility] Blood monocytes/100 leukocyt esOrdered By: Yeyo Christopher on 08-30-2022 Monocytes/100 WBC (Bld) 12.2 % 0-10 [facility] Blood platelet mean volumeOr dered By: Yeyo Christopher on 08-30-2022 Platelet mean volume (Bld) [Entitic vol] 9.8 fL 6.2-12.0 [facility] Determination of erythrocyte mean corpuscular volume (MCV)Ordered By: Yeyo Christopher on 08-30-2022 MCV (RBC) [Entitic vol] 90.3 fL 80-94 [facility] Hematocrit Auto (Bld) [Volum e fraction]Ordered By: Yeyo Christopher on 08-30-2022 Hematocrit (Bld) [Volume fraction] 42.1 % 40-54 [facility] INR in Blood by Coagulation assayOrdered By: Yeyo Christopher on 08-30-2022 INR Coag (Bld) [Relative time] 1.0 {INR} [facility] Ketones Test strip Ql (U)Ord ered By: Yeyo Christopher on 08-30-2022 Ketones Ql (U) Negative Negative [facility] - Chemistry and C hemistry - challengeOrdered By: Yeyo Christopher on 08-30-2022 CO2 [Moles/Vol] 25.0 mmol/L 21.0-32.0 [facility] Urea nitrogen/Creatinine [Mass ratio] 16.7 mg/mg 10-20 [facility] - CoagulationOrde red By: Yeyo Christopher on 08-30-2022 aPTT Coag (Bld) [Time] 29.3 s 24.1-36.2 [facility] PT Coag (PPP) [Time] 12.9 s 11.7-14.9 [facility] - Hematology and Cell countsOrdered By: Yeyo Christopher on 08-30-2022 Erythrocyte distribution width (RBC) [Entitic vol] 43.4 fL 35.1-43.9 [facility] Erythrocyte distribution width (RBC) [Ratio] 13.2 % 11.6-14.6 [facility] Immature granulocytes/100 WBC (Bld) 0.500 % 0.0-0.9 [facility] Comment on above: IG% - Immature Granu locytes (promyelocytes, myelocytes and metamyelocytes) > 1% indicates that a LEFT SHIFT is Present. MCH (RBC) [Entitic mass] 29.8 pg 27.0-32.0 [facility] Nucleated RBC/100 WBC (Bld) [Ratio] 0 % 0-5 [facility] MCHC Auto (RBC) [Mass/Vol]Or dered By: Yeyo Christopher on 08-30-2022 MCHC (RBC) [Mass/Vol] 33.0 g/dL 32-36 [facility] Mucus LM Ql (Urine sed)Order ed By: Yeyo Christopher on 08-30-2022 Mucus Ql (Urine sed) 0 SEEN /hpf [facility] Nitrite Test strip Ql (U)Ord ered By: Yeyo Christopher on 08-30-2022 Nitrite Ql (U) Negative Negative [facility] No Panel InformationOrdered By: Yeyo Christopher on 08-30-2022 Estimated Creatinine Clearance Calc 54.07 ml/min [facility] Estimated GFR (MDRD) Amer 76 mL/min >60 [facility] Comment on above: GFR Calc Estimated GFR (MDRD) Non-Af Amer 63 mL/min >60 [facility] Comment on above: Non- GFR Calc Platelets bldOrdered By: Efraín Christopher on 08-30-2022 Platelets (Bld) [#/Vol] 279 10*3/uL 150-450 [facility] Protein Test strip Ql (U)Ord ered By: Yeyo Christopher on 08-30-2022 Protein Ql (U) 30 mg/dl Negative [facility] Serum or plasma calcium richie urement (mass/volume)Ordered By: Yeyo Christopher on 08-30-2022 Calcium [Mass/Vol] 8.4 mg/dL 8.5-10.1 [facility] Serum or plasma creatinine m easurement (mass/volume)Ordered By: Yeyo Christopher on 08-30-2022 Creatinine [Mass/Vol] 1.20 mg/dL 0.70-1.30 [facility] Comment on above: The validity of the calculated GFR & GFRAA in patients over 70 years has not been determined. Clinical correlation is essential. Serum or plasma urea nitroge n measurement (mass/volume)Ordered By: Yeyo Christopher on 08-30-2022 Urea nitrogen [Mass/Vol] 20 mg/dL 7-18 [facility] Squamous epithelial cells de tection in urine sediment by light microscopyOrdered By: Yeyo Christopher on 08-30-2022 Epithelial cells.squamous LM Ql (Urine sed) 0-5 SEEN /hpf 0-5 [facility] Thin prep Papanicolaou smear with manual screeningOrdered By: Yeyo Christopher on 08-30-2022 Thin prep Papanicolaou smear with manual screening 8 5-15 [facility] Urine blood detectionOrdered By: Yeyo Christopher on 08-30-2022 RBC Ql (U) 250 /ul Negative [facility] RBC Ql (U) 25-50 SEEN /hpf 0-5 [facility] Urine clarityOrdered By: Efraín Christopher on 08-30-2022 Clarity (U) Sl. Cloudy Clear [facility] Urine color determinationOrd ered By: Yeyo Christopher on 08-30-2022 Color (U) Yellow Yellow [facility] Urine glucose detectionOrder ed By: Yeyo Christopher on 08-30-2022 Glucose Ql (U) Normal mg/dl Normal [facility] Urine leukocyte esterase det ection by dipstickOrdered By: Yeyo Christopher on 08-30-2022 Leukocyte esterase Test strip Ql (U) Negative Negative [facility] Urine pHOrdered By: Yeyo chin on 08-30-2022 pH (U) 6.0 [pH] 5.0 - 8.0 [facility] Urine sediment bacteria coun t by microscopy (number/high power field)Ordered By: Yeyo Christopher on 08-30-2022 Bacteria LM.HPF (Urine sed) [#/Area] 0 /[HPF] None Seen [facility] Urine specific gravity measu rementOrdered By: Yeyo Christopher on 08-30-2022 Specific gravity (U) [Rel density] 1.010 1.002-1.030 [facility] Urobilinogen Auto test strip Ql (U)Ordered By: Yeyo Christopher on 08-30-2022 Urobilinogen Ql (U) Normal mg/dl Normal [facility] Basophil percentageOrdered B y: Dr. Gardner on 08-26-2022 Bilirubin [Mass/Vol] 0.50 mg/dL 0.20-1.00 [facility] Comment on above: For patients on eltr ombopag therapy, use of Dimension [place] TBIL is not recommended. Chloride [Moles/Vol] 108 mmol/L 98-107 [facility] Glucose [Mass/Vol] 103 mg/dL 74-106 [facility] Comment on above: Fasting Glucose resu lt from 100 to 125 mg/dL suggests IMPAIRED HOMEOSTASIS per A.D.A. criteria. Potassium [Moles/Vol] 3.8 mmol/L 3.5-5.1 [facility] Protein [Mass/Vol] 5.7 g/dL 6.4-8.2 [facility] Sodium [Moles/Vol] 141 mmol/L 136-145 [facility] WBC (Bld) [#/Vol] 8.4 10*3/uL 4.4-11.0 [facility] Basophil percentageOrdered B y: Dr. Eckert on 08-26-2022 Cholesterol [Mass/Vol] 155 mg/dL <200 [facility] Comment on above: <200 mg/dL Desirable 200-240 mg/dL Borderline >240 mg/dL High Risk Triglyceride [Mass/Vol] 134 mg/dL <199 [facility] Comment on above: The drugs N-Acetylcy steine and Metamizole may falsely depress this assay.Serum Triglycerides Reference Interval Normal <150 mg/dL Borderline high 150 - 199 mg/dL High 200 - 499 mg/dL Very High > or = 500 mg/dL Blood erythrocytes count (nu mber/volume)Ordered By: Dr. Gardner on 08-26-2022 RBC (Bld) [#/Vol] 4.23 10*6/uL 4.6-6.2 [facility] Blood hemoglobin measurement (mass/volume)Ordered By: Dr. Gardner on 08-26-2022 Hemoglobin (Bld) [Mass/Vol] 12.8 g/dL 13.0-16.5 [facility] Blood platelet mean volumeOr dered By: Dr. Gardner on 08-26-2022 Platelet mean volume (Bld) [Entitic vol] 9.4 fL 6.2-12.0 [facility] Determination of erythrocyte mean corpuscular volume (MCV)Ordered By: Dr. Gardner on 08-26-2022 MCV (RBC) [Entitic vol] 91.7 fL 80-94 [facility] Hematocrit Auto (Bld) [Volum e fraction]Ordered By: Dr. Gardner on 08-26-2022 Hematocrit (Bld) [Volume fraction] 38.8 % 40-54 [facility] - Chemistry and C hemistry - challengeOrdered By: Dr. Gardner on 08-26-2022 ALP [Catalytic activity/Vol] 66 U/L 45-117 [facility] ALT [Catalytic activity/Vol] 10 U/L 16-61 [facility] CO2 [Moles/Vol] 25.0 mmol/L 21.0-32.0 [facility] Globulin (S) [Mass/Vol] 2.9 g/dL 2.2-4.2 [facility] Urea nitrogen/Creatinine [Mass ratio] 18.8 mg/mg 10-20 [facility] - Hematology and Cell countsOrdered By: Dr. Gardner on 08-26-2022 Erythrocyte distribution width (RBC) [Entitic vol] 45.7 fL 35.1-43.9 [facility] Erythrocyte distribution width (RBC) [Ratio] 13.6 % 11.6-14.6 [facility] MCH (RBC) [Entitic mass] 30.3 pg 27.0-32.0 [facility] MCHC Auto (RBC) [Mass/Vol]Or dered By: Dr. Gardner on 08-26-2022 MCHC (RBC) [Mass/Vol] 33.0 g/dL 32-36 [facility] No Panel InformationOrdered By: Dr. Gardner on 08-26-2022 Estimated Creatinine Clearance Calc 64.25 ml/min [facility] Estimated GFR (MDRD) Amer 92 mL/min >60 [facility] Comment on above: GFR Calc Estimated GFR (MDRD) Non-Af Amer 76 mL/min >60 [facility] Comment on above: Non- GFR Calc Platelets bldOrdered By: Dr. Gardner on 08-26-2022 Platelets (Bld) [#/Vol] 283 10*3/uL 150-450 [facility] Serum or plasma albumin richie urement (mass/volume)Ordered By: Dr. Gardner on 08-26-2022 Albumin [Mass/Vol] 2.8 g/dL 3.2-5.0 [facility] Serum or plasma albumin/glob ulin mass ratioOrdered By: Dr. Gardner on 08-26-2022 Albumin/Globulin [Mass ratio] 1.0 {ratio} 0.9-2.4 [facility] Serum or plasma calcium richie urement (mass/volume)Ordered By: Dr. Gardner on 08-26-2022 Calcium [Mass/Vol] 7.8 mg/dL 8.5-10.1 [facility] Serum or plasma cholesterol in HDL measurement (mass/volume)Ordered By: Dr. Eckert on 08-26-2022 Cholesterol in HDL [Mass/Vol] 40 mg/dL >40 [facility] Comment on above: The drugs N-Acetylcy steine and Metamizole may falsely depress this assay. Reference Range HDL <40 mg/dL Low HDL Cholesterol HDL >or= 60 mg/dL High HDL Cholesterol Serum or plasma cholesterol in VLDL measurement (mass/volume)Ordered By: Dr. Eckert on 08-26-2022 Cholesterol in VLDL [Mass/Vol] 27 mg/dL 5-40 [facility] Serum or plasma creatinine m easurement (mass/volume)Ordered By: Dr. Gardner on 08-26-2022 Creatinine [Mass/Vol] 1.01 mg/dL 0.70-1.30 [facility] Comment on above: The validity of the calculated GFR & GFRAA in patients over 70 years has not been determined. Clinical correlation is essential. Serum or plasma low density lipoprotein (LDL) cholesterol measurement (mass/volume)Ordered By: Dr. Eckert on 08-26-2022 Cholesterol in LDL [Mass/Vol] 88 mg/dL 0-130 [facility] Serum or plasma urea nitroge n measurement (mass/volume)Ordered By: Dr. Gardner on 08-26-2022 Urea nitrogen [Mass/Vol] 19 mg/dL 7-18 [facility] Thin prep Papanicolaou smear with manual screeningOrdered By: Dr. Gardner on 08-26-2022 Thin prep Papanicolaou smear with manual screening 19 U/L 15-37 [facility] Thin prep Papanicolaou smear with manual screening 8 5-15 [facility] Absolute lymphocyte countOrd ered By: Dr. Arnett on 08-25-2022 Lymphocytes Auto (Unsp spec) [#/Vol] 1.98 10*3/uL 0.83-4.51 [facility] Basophil percentageOrdered B y: Dr. Arnett on 08-25-2022 Basophils/100 WBC (Bld) 0.8 % 0-1 [facility] Eosinophils/100 WBC (Bld) 2.2 % 0-5 [facility] Neutrophils (Bld) [#/Vol] 5.7 10*3/uL 2.0-7.7 [facility] Neutrophils/100 WBC (Bld) 63.3 % 47-70 [facility] Blood lymphocytes/100 leukoc ytesOrdered By: Dr. Arnett on 08-25-2022 Lymphocytes/100 WBC (Bld) 21.9 % 19-41 [facility] Blood monocytes/100 leukocyt esOrdered By: Dr. Arnett on 08-25-2022 Monocytes/100 WBC (Bld) 11.5 % 0-10 [facility] Laboratory - Hematology and Cell countsOrdered By: Dr. Arnett on 08-25-2022 Immature granulocytes/100 WBC (Bld) 0.300 % 0.0-0.9 [facility] Comment on above: IG% - Immature Granu locytes (promyelocytes, myelocytes and metamyelocytes) > 1% indicates that a LEFT SHIFT is Present. Nucleated RBC/100 WBC (Bld) [Ratio] 0 % 0-5 [facility] No Panel InformationOrdered By: Dr. Eckert on 08-25-2022 Activated Clotting Time 239 sec 74-137 [facility] No Panel InformationOrdered By: Dr. Arnett on 08-25-2022 Troponin I High Sensitivity 1086 pg/mL 3.0-78.0 [facility] Comment on above: Critical Result(s) C alled at: 06:55:41 08/25/2022 by: Fanny Reynolds. Results read back by same. Please Note: New Test Units and Gender Specific Reference Ranges. For more information see Policy Stat Procedure [place] High Sensitivity Troponin (TNIH) and attachments. Absolute lymphocyte counton 08-24-2022 Lymphocytes Auto (Unsp spec) [#/Vol] 2.07 10*3/uL 0.83-4.51 [facility] Work Phone: Basophil percentageon 2022 Basophils/100 WBC (Bld) 0.7 % 0-1 [facility] Work Phone: Chloride [Moles/Vol] 109 mmol/L 98-107 [facility] Work Phone: Eosinophils/100 WBC (Bld) 3.3 % 0-5 [facility] Work Phone: Glucose [Mass/Vol] 107 mg/dL 74-106 [facility] Work Phone: Comment on above: Fasting Glucose resu lt from 100 to 125 mg/dL suggests IMPAIRED HOMEOSTASIS per A.D.A. criteria. Neutrophils (Bld) [#/Vol] 3.9 10*3/uL 2.0-7.7 [facility] Work Phone: [phone] Neutrophils/100 WBC (Bld) 53.7 % 47-70 [facility] Work Phone: [phone] Potassium [Moles/Vol] 3.8 mmol/L 3.5-5.1 [facility] Work Phone: [phone] Sodium [Moles/Vol] 141 mmol/L 136-145 [facility] Work Phone: [phone] WBC (Bld) [#/Vol] 7.3 10*3/uL 4.4-11.0 [facility] Work Phone: [phone] Blood erythrocytes count (nu mber/volume)on 08-24-2022 RBC (Bld) [#/Vol] 4.84 10*6/uL 4.6-6.2 [facility] Work Phone: [phone] Blood hemoglobin measurement (mass/volume)on 08-24-2022 Hemoglobin (Bld) [Mass/Vol] 14.9 g/dL 13.0-16.5 [facility] Work Phone: [phone] Blood lymphocytes/100 leukoc yteson 08-24-2022 Lymphocytes/100 WBC (Bld) 28.4 % 19-41 [facility] Work Phone: [phone] Blood monocytes/100 leukocyt eson 08-24-2022 Monocytes/100 WBC (Bld) 13.5 % 0-10 [facility] Work Phone: [phone] Blood platelet mean volumeon 08-24-2022 Platelet mean volume (Bld) [Entitic vol] 9.3 fL 6.2-12.0 [facility] Work Phone: [phone] Determination of erythrocyte mean corpuscular volume (MCV)on 08-24-2022 MCV (RBC) [Entitic vol] 90.5 fL 80-94 [facility] Work Phone: [phone] Hematocrit Auto (Bld) [Volum e fraction]on 08-24-2022 Hematocrit (Bld) [Volume fraction] 43.8 % 40-54 [facility] Work Phone: [phone] Laboratory - Chemistry and C hemistry - challengeon 08-24-2022 CO2 [Moles/Vol] 26.0 mmol/L 21.0-32.0 [facility] Work Phone: [phone] Urea nitrogen/Creatinine [Mass ratio] 15.3 mg/mg 10-20 [facility] Work Phone: [phone] Laboratory - Hematology and Cell countson 08-24-2022 Erythrocyte distribution width (RBC) [Entitic vol] 44.2 fL 35.1-43.9 [facility] Work Phone: [phone] Erythrocyte distribution width (RBC) [Ratio] 13.2 % 11.6-14.6 [facility] Work Phone: [phone] Immature granulocytes/100 WBC (Bld) 0.400 % 0.0-0.9 [facility] Work Phone: [phone] Comment on above: IG% - Immature Granu locytes (promyelocytes, myelocytes and metamyelocytes) > 1% indicates that a LEFT SHIFT is Present. MCH (RBC) [Entitic mass] 30.8 pg 27.0-32.0 [facility] Work Phone: [phone] Nucleated RBC/100 WBC (Bld) [Ratio] 0 % 0-5 [facility] Work Phone: [phone] MCHC Auto (RBC) [Mass/Vol]on 08-24-2022 MCHC (RBC) [Mass/Vol] 34.0 g/dL 32-36 [facility] Work Phone: [phone] Panel Informationon 08-24 Estimated Creatinine Clearance Calc 54.99 ml/min [facility] Work Phone: [phone] Estimated GFR (MDRD) Amer 77 mL/min >60 [facility] Work Phone: [phone] Comment on above: GFR Calc Estimated GFR (MDRD) Non-Af Amer 64 mL/min >60 [facility] Work Phone: Comment on above: Non- GFR Calc Troponin I High Sensitivity 32 pg/mL 3.0-78.0 [facility] Work Phone: Comment on above: Please Note: New Tyra t Units and Gender Specific Reference Ranges. For more information see Policy Stat Procedure [place] High Sensitivity Troponin (TNIH) and attachments. Platelets bldon 08-24-2022 Platelets (Bld) [#/Vol] 338 10*3/uL 150-450 [facility] Work Phone: Serum or plasma calcium richie urement (mass/volume)on 08-24-2022 Calcium [Mass/Vol] 9.0 mg/dL 8.5-10.1 [facility] Work Phone: Serum or plasma creatinine m easurement (mass/volume)on 08-24-2022 Creatinine [Mass/Vol] 1.18 mg/dL 0.70-1.30 [facility] Work Phone: Comment on above: The validity of the calculated GFR & GFRAA in patients over 70 years has not been determined. Clinical correlation is essential. Serum or plasma urea nitroge n measurement (mass/volume)on 08-24-2022 Urea nitrogen [Mass/Vol] 18 mg/dL 7-18 [facility] Work Phone: Thin prep Papanicolaou smear with manual screeningon 08-24-2022 Thin prep Papanicolaou smear with manual screening 6 5-15 [facility] Work Phone: CNPMarycarmen 12-04-2021 [facility] Telephone ([facility]) LUÍS HERNANDEZ ([id number]) 1945 M EXC Date Time Provider Department 12/04/21 XAVIER HAMPTON [facility] During your visit today, we recorded the following information about you: Allergies As of Date: 12/04/2021 Noted Allergy Reaction PERCOCET (OXYCODONE-ACETAMINOPH EN)09/11/2011 5 - Intolerance Comments: Anxiety and slurred words CODEINE 07/22/2005 Comments: itch, nightmares VICODIN (HYDROCODONE-ACETAMINO PHE*02/22/2009 2 - Rash 9 - Itching Date Reviewed: 07/19/2020 Reviewed by: Maribeth Mcpherson RN - Fully Assessed Reason for Visit: Yearly Exam [187] Prescriptions as of 12/04/2021 - doxazosin (CARDURA) 4 mg tablet TAKE 1.5 TABLETS BY MOUTH DAILY AT BEDTIME. - hydrOXYzine pamoate (VISTARIL) 25 mg capsule Take 1 capsule by mouth three times daily as needed for Anxiety. - magnesium oxide (MAG-OX) 400 mg (241.3 mg magnesium) tablet Take 400 mg by mouth once daily. - gabapentin (NEURONTIN) 300 mg capsule Take 300 mg by mouth three times daily as needed. - carbidopa-levodopa (SINEMET 25-100) 25-100 mg per tablet Take 1 tablet by mouth daily at bedtime. - COMPOUNDED PRESCRIPTION Prostaglandin 30mcg/ml injectable, bimix papaverine/phentolamin e 30mg/0.5mg/ml injectable for penile intracavernosal inj for ED - Melatonin 5 mg cap Take by mouth. - CALCIUM CARBONATE/VITAMIN D3 (VITAMIN D-3 ORAL) Take by mouth. - Insulin Syringe-Needle U-100 (BD ULTRAFINE INSULIN) 1 mL 31 x /16 Misc Syrg For penile intracavernosal injections for ED Problem List As Of Date 12/04/2021 Noted Resolved Abnormal movements [R25.9] 07/22/2005 BENIGN HYPERTENSION [I10] 07/22/2005 BPH W/O URINARY OBS/LUTS [N40.0] 07/22/2005 06/09/2007 ELEVATED PROSTATE SPECIFIC ANTIGEN [R97.20] 09/07/2006 Hypertrophy of prostate with urinary obstructio*06/09/2007 12/17/2017 BLADDER NECK OBSTRUCTION [N32.0] 06/09/2007 Chronic Prostatitis [N41.1] 04/30/2009 Knee pain [M25.569] 01/09/2011 12/17/2017 Knee joint replacement by other means [Z96.659] 03/12/2011 Umbilical hernia without mention of obstruction*06/16/2012 12/17/2017 Erectile dysfunction due to arterial insufficie*03/17/2018 Urine retention [R33.9] 08/19/2019 Encounter Status:Closed by HO SANCHEZ on 12/04/21 [facility] OBSOLETEon 07-20-2021 OBSOLETE Refill ([facility]) LUÍS HERNANDEZ ([id number]) 1945 M EXC Date Time Provider Department 07/20/21 XAVIER HAMPTON [facility] During your visit today, we recorded the following information about you: Maribeth Mcpherson RN 07/23/2021 9:49 AM Signed Last seen by MD 07/19/20 Next appointment with MD ramos Current Labs 06/11/20 Date last rx given 08/29/20 Original ordering physician Called, no answer, left message asking if he has requested this refill in [place] [facility] 07/23/2021 9:58 AM Signed Patient called the nurse back to confirm that the prescription should be filled into [place] [facility] and he thanks the nurse for this. Thank you Xavier Hampton DO 07/23/2021 10:30 AM Signed Patient is overdue for appointment. Please schedule Jazmin Hall 07/26/2021 3:22 PM Signed Voicemail left for patient, call back requested to schedule an appointment. Allergies As of Date: 07/20/2021 Noted Allergy Reaction PERCOCET (OXYCODONE-ACETAMINOPH EN)09/11/2011 5 - Intolerance Comments: Anxiety and slurred words CODEINE 07/22/2005 Comments: itch, nightmares VICODIN (HYDROCODONE-ACETAMINO PHE*02/22/2009 2 - Rash 9 - Itching Date Reviewed: 07/19/2020 Reviewed by: Maribeth Mcpherson RN - Fully Assessed Reason for Visit: Refill Request [94] Order(s):doxazosin (CARDURA) 4 mg tabletTAKE 1.5 TABLETS BY MOUTH DAILY AT BEDTIME.Disp: 135 tabletRfl: 0 Prescriptions as of 07/26/2021 - doxazosin (CARDURA) 4 mg tablet TAKE 1.5 TABLETS BY MOUTH DAILY AT BEDTIME. - hydrOXYzine pamoate (VISTARIL) 25 mg capsule Take 1 capsule by mouth three times daily as needed for Anxiety. - magnesium oxide (MAG-OX) 400 mg (241.3 mg magnesium) tablet Take 400 mg by mouth once daily. - gabapentin (NEURONTIN) 300 mg capsule Take 300 mg by mouth three times daily as needed. - carbidopa-levodopa (SINEMET 25-100) 25-100 mg per tablet Take 1 tablet by mouth daily at bedtime. - COMPOUNDED PRESCRIPTION Prostaglandin 30mcg/ml injectable, bimix papaverine/phentolamin e 30mg/0.5mg/ml injectable for penile intracavernosal inj for ED - Melatonin 5 mg cap Take by mouth. - CALCIUM CARBONATE/VITAMIN D3 (VITAMIN D-3 ORAL) Take by mouth. - Insulin Syringe-Needle U-100 (BD ULTRAFINE INSULIN) 1 mL 31 x 16 Misc Syrg For penile intracavernosal injections for ED Problem List As Of Date 07/20/2021 Noted Resolved Abnormal movements [R25.9] 07/22/2005 BENIGN HYPERTENSION [I10] 07/22/2005 BPH W/O URINARY OBS/LUTS [N40.0] 07/22/2005 06/09/2007 ELEVATED PROSTATE SPECIFIC ANTIGEN [R97.20] 09/07/2006 Hypertrophy of prostate with urinary obstructio*06/09/2007 12/17/2017 BLADDER NECK OBSTRUCTION [N32.0] 06/09/2007 Chronic Prostatitis [N41.1] 04/30/2009 Knee pain [M25.569] 01/09/2011 12/17/2017 Knee joint replacement by other means [Z96.659] 03/12/2011 Umbilical hernia without mention of obstruction*06/16/2012 12/17/2017 Erectile dysfunction due to arterial insufficie*03/17/2018 Urine retention [R33.9] 08/19/2019 Prescriptions ordered this encounter Disp Refills Start End DOXAZOSIN 4 MG TABLET 135 * 0 07/23/2021 Cmt: PATIENT CAME IN FOR A REFILL AND NO LONGER HAS ANY. PLEASE SEND REFILLS. THANK YOU Route: ORAL Sig: TAKE 1.5 TABLETS BY MOUTH DAILY AT BEDTIME. Medications Discontinued During This Encounter Prescriptions - doxazosin (CARDURA) 4 mg tablet (Discontinued) TAKE 1.5 TABLETS BY MOUTH DAILY AT BEDTIME. Encounter Status:Closed by JAZMIN HALL on 07/26/21 [facility] LU[facility]S HER[facility]DEZ ([id number]) 1945 M [facility] Date Time Provider Department 01/24/21 XAVIER HAMPTON [facility] During your visit today, we recorded the following information about you: Merary Weinberg 02/14/2021 8:53 AM Addendum Left message for patient to call [facility] to schedule an annual wellness visit with your primary care doctor. Allergies As of Date: 01/24/2021 Noted Allergy Reaction PERCOCET (OXYCODONE-ACETAMINOPH EN)09/11/2011 5 - Intolerance Comments: Anxiety and slurred words CODEINE 07/22/2005 Comments: itch, nightmares VICODIN (HYDROCODONE-ACETAMINO PHE*02/22/2009 2 - Rash 9 - Itching Date Reviewed: 07/19/2020 Reviewed by: Maribeth Mcpherson RN - Fully Assessed Reason for Visit: Medicare Wellness Exam [7410] Prescriptions as of 01/24/2021 Sig: DOXAZOSIN 4 MG TABLET TAKE 1.5 TABLETS BY MOUTH JOSE J* HYDROXYZINE PAMOATE 25 MG CAP* Take 1 capsule by mouth three* MAGNESIUM OXIDE 400 MG (241.3* Take 400 mg by mouth once jose j* GABAPENTIN 300 MG CAPSULE Take 300 mg by mouth three ti* CARBIDOPA 25 MG-LEVODOPA 100 * Take 1 tablet by mouth daily * COMPOUNDED PRESCRIPTION Prostaglandin 30mcg/ml inject* MELATONIN 5 MG CAPSULE Take by mouth. VITAMIN D-3 ORAL Take by mouth. INSULIN SYRINGE U-100 WITH NE* For penile intracavernosal in* Problem List As Of Date 01/24/2021 Noted Resolved Abnormal movements [R25.9] 07/22/2005 BENIGN HYPERTENSION [I10] 07/22/2005 BPH W/O URINARY OBS/LUTS [N40.0] 07/22/2005 06/09/2007 ELEVATED PROSTATE SPECIFIC ANTIGEN [R97.20] 09/07/2006 Hypertrophy of prostate with urinary obstructio*06/09/2007 12/17/2017 BLADDER NECK OBSTRUCTION [N32.0] 06/09/2007 Chronic Prostatitis [N41.1] 04/30/2009 Knee pain [M25.569] 01/09/2011 12/17/2017 Knee joint replacement by other means [Z96.659] 03/12/2011 Umbilical hernia without mention of obstruction*06/16/2012 12/17/2017 Erectile dysfunction due to arterial insufficie*03/17/2018 Urine retention [R33.9] 08/19/2019 Encounter Status:Closed by MERARY WEINBERG on 01/24/21 [facility] Hematologyon 06-13-2020 aPTT Coag (Bld) [Time] 26 s 23 - 32 sec [facility] Basophils/100 WBC (Bld) 1 % [facility] Eosinophils (Bld) [#/Vol] 0.154 10*3/uL 15 - 500 cells/uL [facility] Eosinophils/100 WBC (Bld) 2 % [facility] Hematocrit (Bld) [Volume fraction] 43.7 % 38.5 - 50.0 % [facility] Hemoglobin (Bld) [Mass/Vol] 14.8 g/dL 13.2 - 17.1 g/dL [facility] INR Coag (Bld) [Relative time] 1 {INR} [facility] Lymphocytes (Bld) [#/Vol] 1.409 10*3/uL 850 - 3900 cells/uL [facility] Lymphocytes/100 WBC (Bld) 18.3 % [facility] MCH (RBC) [Entitic mass] 30.4 pg 27. 0 - 33.0 pg [facility] MCV (RBC) [Entitic vol] 89.7 fL 80.0 - 100.0 fL [facility] Monocytes/100 WBC (Bld) 9 % C [facility] Neutrophils/100 WBC (Bld) 69.7 % [facility] Platelets (Bld) [#/Vol] 245 10*3/uL 140 - 400 Thousand/uL [facility] RBC (Bld) [#/Vol] 4.87 10*6/uL 4.20 - 5.8 0 Million/uL [facility] WBC (Bld) [#/Vol] 7.7 10*3/uL 3.8 - 10.8 Thousand/uL [facility] Metabolic Panelon 06-13-2020 Albumin [Mass/Vol] 4.4 g/dL 3.6 - 5.1 g/dL [facility] ALP [Catalytic activity/Vol] 73 U/L 35 - 144 U/L [facility] ALT [Catalytic activity/Vol] 19 U/L 9 - 46 U/L [facility] AST [Catalytic activity/Vol] 19 U/L 10 - 35 U/L [facility] Bilirubin [Mass/Vol] 0.6 mg/dL 0.2 - 1 .2 mg/dL [facility] Calcium [Mass/Vol] 9.2 mg/dL 8.6 - 10. 3 mg/dL [facility] Chloride [Moles/Vol] 105 mmol/L 98 - 11 0 mmol/L [facility] CO2 [Moles/Vol] 23 mmol/L 20 - 32 mmol/L [facility] Creatinine [Mass/Vol] 1.18 mg/dL 0.70 - 1.18 mg/dL [facility] Glucose [Mass/Vol] 87 mg/dL 65 - 99 mg/dL [facility] Potassium [Moles/Vol] 4.3 mmol/L 3.5 - 5.3 mmol/L [facility] Protein [Mass/Vol] 7 g/dL 6.1 - 8.1 g/dL [facility] Sodium [Moles/Vol] 141 mmol/L 135 - 146 mmol/L [facility] Urea nitrogen [Mass/Vol] 19 mg/dL 7 - 25 mg/d L [facility] Urea nitrogen/Creatinine [Mass ratio] NOT APPLICABLE 6 (calc) [facility] Otheron 06-13-2020 Abs Baso 77 cells/uL 0 - 200 cells/uL [facility] Abs Dukes 693 cells/uL 200 - 950 cells/uL [facility] Abs Neut (ANC) 5367 cells/uL 1500 - 7800 cells/uL [facility] Albumin/Globulin [Mass ratio] 1.7 (calc) 1.0 - 2.5 (calc) [facility] Anti-Hepatitis C NON-REACTIVE NON-REACTIVE [facility] Clotting time Heparin protamine titration (Bld) 10.4 sec 9.0 - 11.5 sec [facility] Erythrocyte distribution width (RBC) [Ratio] 12.8 % 11.0 - 15.0 % [facility] Gamma Globulin 2.6 g/dL (calc) 1.9 - 3.7 g/dL (calc) [facility] GFR/1.73 sq M.predicted MDRD (S/P/Bld) [Vol rate/Area] 60 mL/min/{1.73_m2} > OR = 60 mL/min/1.73m 2 [facility] Hep A Ab, Total NON-REACTIVE NON-REACTIVE [facility] Hep B Core Ab Total NON-REACTIVE NON-REACTIVE C [facility] Hep B Surface Ab, Qual NON-REACTIVE NON-REACTIV E [facility] Hep B Surface Ag NON-REACTIVE NON-REACTIVE [facility] Hyaline Casts NONE SEEN NONE SEEN /LPF [facility] If 70 mL/min/1.73m2 > OR = 60 mL/min/1.73m 2 [facility] Leukocytes 0-5 < OR = 5 /HPF [facility] MCHC (RBC) [Mass/Vol] 33.9 g/dL 32.0 - 36.0 g/dL [facility] Platelet mean volume (Bld) [Entitic vol] 9.3 fL 7.5 - 12.5 fL [facility] Signal to Cut-Off 0.01 <1.00 [facility] Pipeline Operator CULTURE, URINE, ROUTINE CULTURE, URINE, ROUTINE Micro Number: [id number] Test Status: Final Specimen Source: URINE Specimen Quality: Adequate Result: No Growth Test Performed at: [id number] [id number] TY ADAIR MD Specimen Received Date: 06/11/2020 14:35 [facility] Urinalysison 06-13-2020 Bacteria LM.HPF (Urine sed) [#/Area] NONE SEEN NONE SEEN /HPF [facility] Epithelial cells.squamous LM.HPF (Urine sed) [#/Area] NONE SEEN < OR = 5 /HPF [facility] RBC LM.HPF (Urine sed) [#/Area] 0-2 < OR = 2 /HPF [facility] Vital Signs Date Time Vital Sign Value Performing Clinician Faci lity 05-16-2025 07:56-0400 Body mass index (BMI) [Ratio] 30.8 kg/m2 Dr. Haroldo Hollis MD Work Phone: [facility] 05-16-2025 07:56-0400 Body weight 100.[address] Haroldo Hollis MD Work Phone: [phone] [place] [address] 05-16-2025 07:56-0400 Diastolic blood pressure 75 mm[Hg] Dr. Haroldo Hollis MD Work Phone: [phone] [address] 05-16-2025 07:56-0400 Heart rate 62 /min Dr. Haroldo Hollis MD Work Phone: [phone] [place] [address] 05-16-2025 07:56-0400 Respiratory rate 18 /min Dr. Haroldo Hollis MD Work Phone: [phone] [place] [address] 05-16-2025 07:56-0400 SaO2% (BldA) [Mass fraction] 9 % Dr. Haroldo Hollis MD Work Phone: [phone] [place] [address] 05-16-2025 07:56-0400 Systolic blood pressure 117 mm[Hg] Dr. Haroldo Hollis MD Work Phone: [facility] 03-17-2025 10:130400 Body height 175.3 cm Haroldo Hollis MD Work Phone: [facility] 03-17-2025 10:13-0400 Body mass index (BMI) [Ratio] 32.62 kg/m2 Haroldo Hollis MD Work Phone: [facility] 03-17-2025 10:13-0400 Body weight 100.2 kg Haroldo Hollis MD Work Phone: [facility] 03-17-2025 10:13-0400 Diastolic blood pressure 68 mm[Hg] Haroldo Hollis MD Work Phone: [facility] 03-17-2025 10:13-0400 Heart rate 63 /min Haroldo Hollis MD Work Phone: [facility] 03-17-2025 10:13-0400 Respiratory rate 14 /min Haroldo Hollis MD Work Phone: [facility] 03-17-2025 10:13-0400 SaO2% (BldA) [Mass fraction] 94 % Haroldo Hollis MD Work Phone: [facility] 03-17-2025 10:13-0400 Systolic blood pressure 116 mm[Hg] Haroldo Hollis MD Work Phone: [facility] 01-16-2025 08:18-0400 Diastolic blood pressure 78 mm[Hg] Dr. Haroldo Hollis MD Work Phone: [facility] 01-16-2025 08:18-0400 Systolic blood pressure 138 mm[Hg] Dr. Haroldo Hollis MD Work Phone: [facility] 01-16-2025 06:37-0400 Body mass index (BMI) [Ratio] 31.1 kg/m2 Dr. Haroldo Hollis MD Work Phone: [facility] 01-16-2025 06:37-0400 Body weight 101.[address] Haroldo Hollis MD Work Phone: [facility] 01-16-2025 06:37-0400 Heart rate 52 /min Dr. Haroldo Hollis MD Work Phone: [facility] 01-16-2025 06:37-0400 Respiratory rate 18 /min Dr. Haroldo Hollis MD Work Phone: [facility] 01-16-2025 06:37-0400 SaO2% (BldA) [Mass fraction] 98 % Dr. Haroldo Hollis MD Work Phone: [facility] 12-13-2024 11:13-0400 Body mass index (BMI) [Ratio] 31.93 kg/m2 Dary Croft PLATEMAN[employer]COMMUNITY ARTIST Work Phone: [facility] 12-13-2024 11:13-0400 Body weight 98.8 kg Dary Croft PLATEMAN.COMMUNITY ARTIST Work Phone: [facility] 12-13-2024 11:13-0400 Diastolic blood pressure 72 mm[Hg] Dary ZunigaJovanny PLATEMAN.COMMUNITY ARTIST Work Phone: [facility] 12-13-2024 11:13-0400 Heart rate 56 /min Dary Croft PLATEMAN.COMMUNITY ARTIST Work Phone: [facility] 12-13-2024 11:13-0400 Respiratory rate 14 /min Dary Croft PLATEMAN.COMMUNITY ARTIST Work Phone: [facility] 12-13-2024 11:13-0400 SaO2% (BldA) [Mass fraction] 99 % Dary Croft PLATEMAN.COMMUNITY ARTIST Work Phone: [facility] 12-13-2024 11:13-0400 Systolic blood pressure 116 mm[Hg] Dary Croft PLATEMAN.COMMUNITY ARTIST Work Phone: [facility] 09-01-2024 08:04-0500 Body height 175.9 cm Haroldo Hollis MD Work Phone: [facility] 09-01-2024 08:04-0500 Body mass index (BMI) [Ratio] 32.06 kg/m2 Haroldo Hollis MD Work Phone: [facility] 09-01-2024 08:04-0500 Body temperature 98.01 [degF] Haroldo Hollis MD Work Phone: [facility] 09-01-2024 08:04-0500 Body weight 99.2 kg Haroldo Hollis MD Work Phone: [facility] 09-01-2024 08:04-0500 Diastolic blood pressure 78 mm[Hg] Haroldo Hollis MD Work Phone: [facility] 09-01-2024 08:04-0500 Heart rate 60 /min Haroldo Hollis MD Work Phone: [facility] 09-01-2024 08:04-0500 Respiratory rate 16 /min Haroldo Hollis MD Work Phone: [facility] 09-01-2024 08:04-0500 Systolic blood pressure 118 mm[Hg] Haroldo Hollis MD Work Phone: [facility] 08-16-2024 09:04-0500 Body mass index (BMI) [Ratio] 30.84 kg/m2 Dary Croft PLATEMAN[employer]COMMUNITY ARTIST Work Phone: [facility] 08-16-2024 09:04-0500 Body weight 100.3 kg Dary Croft PLATEMAN.COMMUNITY ARTIST Work Phone: [facility] 08-16-2024 09:04-0500 Diastolic blood pressure 72 mm[Hg] Dary Croft PLATEMAN.COMMUNITY ARTIST Work Phone: [facility] 08-16-2024 09:04-0500 Heart rate 58 /min Dary Croft PLATEMAN.COMMUNITY ARTIST Work Phone: [facility] 08-16-2024 09:04-0500 Respiratory rate 14 /min Dary Croft PLATEMAN.COMMUNITY ARTIST Work Phone: [facility] 08-16-2024 09:04-0500 SaO2% (BldA) [Mass fraction] 98 % Dary Croft PLATEMAN.COMMUNITY ARTIST Work Phone: [facility] 08-16-2024 09:04-0500 Systolic blood pressure 124 mm[Hg] Dary Croft PLATEMAN.COMMUNITY ARTIST Work Phone: [facility] 07-30-2024 11:06-0500 Body mass index (BMI) [Ratio] 30.16 kg/m2 Haroldo Hollis MD Work Phone: [facility] 07-30-2024 11:06-0500 Body weight 98.1 kg Haroldo Hollis MD Work Phone: [facility] 07-30-2024 11:06-0500 Diastolic blood pressure 80 mm[Hg] Haroldo Hollis MD Work Phone: [facility] [facility] 07-30-2024 11:06-0500 Heart rate 76 /min Haroldo Hollis MD Work Phone: [facility] 07-30-2024 11:06-0500 Respiratory rate 16 /min Haroldo Hollis MD Work Phone: [facility] 07-30-2024 11:06-0500 SaO2% (BldA) [Mass fraction] 97 % Haroldo Hollis MD Work Phone: [facility] 07-30-2024 11:06-0500 Systolic blood pressure 128 mm[Hg] Haroldo Hollis MD Work Phone: [facility] 07-20-2024 09:02-0500 Body mass index (BMI) [Ratio] 30.75 kg/m2 Dary Croft [employer]ATEM[employer]COMMUNITY [employer]IST Work Phone: [facility] 07-20-2024 09:02-0500 Body temperature 98.4 [degF] Dary Croft [employer]AT[employer]COMMUNITY ARTIST Work Phone: [facility] 07-20-2024 09:02-0500 Body weight 100 kg Dary Croft [employer]ATEMAN[employer]COMMUNITY ARTIST Work Phone: [facility] 07-20-2024 09:02-0500 Diastolic blood pressure 96 mm[Hg] Dary Croft PLATEMAN[employer]COMMUNITY ARTIST Work Phone: [facility] 07-20-2024 09:02-0500 Heart rate 73 /min Dary Croft [employer]ATEMAN.COMMUNITY ARTIST Work Phone: [facility] 07-20-2024 09:02-0500 Respiratory rate 16 /min Dary Croft [employer]ATEM[employer]COMMUNITY ARTIST Work Phone: [facility] 07-20-2024 09:02-0500 Systolic blood pressure 137 mm[Hg] Dary Jovanny PLATEMAN.COMMUNITY ARTIST Work Phone: [facility] 10-15-2023 11:05-0500 Body temperature 98.01 [degF] Haroldo Hollis MD Work Phone: [facility] 10-15-2023 11:05-0500 Body weight 97.07 kg Haroldo Hollis MD Work Phone: [facility] 10-15-2023 11:05-0500 Diastolic blood pressure 68 mm[Hg] Haroldo Hollis MD Work Phone: [facility] 10-15-2023 11:05-0500 Heart rate 56 /min Haroldo Hollis MD Work Phone: [facility] 10-15-2023 11:05-0500 Respiratory rate 16 /min Haroldo Hollis MD Work Phone: [facility] 10-15-2023 11:05-0500 Systolic blood pressure 120 mm[Hg] Haroldo Hollis MD Work Phone: [facility] 07-16-2023 14:51-0500 Diastolic blood pressure 73 mm[Hg] Dary Older [employer]ATEMAN.COMMUNITY ARTIST Work Phone: [facility] 07-16-2023 14:51-0500 Heart rate 68 /min Dary Older [employer]ATEMAN.COMMUNITY ARTIST Work Phone: [facility] 07-16-2023 14:51-0500 Systolic blood pressure 123 mm[Hg] Dary Older PLATEMAN.COMMUNITY ARTIST Work Phone: [facility] 07-16-2023 14:35-0500 Body weight 101.15 kg Dary Older [employer]ATEMAN.COMMUNITY ARTIST Work Phone: [facility] 07-16-2023 14:35-0500 Respiratory rate 18 /min Dary Older [employer]ATEMAN.COMMUNITY ARTIST Work Phone: [facility] 07-16-2023 14:35-0500 SaO2% (BldA) [Mass fraction] 98 % Dary Older PLATEMAN.COMMUNITY ARTIST Work Phone: [facility] 02-25-2023 14:190400 Body height 180.3 cm Haroldo Hollis MD Work Phone: [facility] 02-25-2023 14:19-0400 Body weight 97.07 kg Haroldo Hollis MD Work Phone: [facility] 02-25-2023 14:190400 Diastolic blood pressure 78 mm[Hg] Haroldo Hollis MD Work Phone: [facility] 02-25-2023 14:19-0400 Heart rate 64 /min Haroldo Hollis MD Work Phone: [facility] 02-25-2023 14:19-0400 Respiratory rate 24 /min Haroldo Hollis MD Work Phone: [facility] 02-25-2023 14:19-0400 Systolic blood pressure 124 mm[Hg] Haroldo Hollis MD Work Phone: [facility] 01-30-2023 11:27-0400 Body height 177.8 cm MD Haroldo Hollis [facility] 01-30-2023 11:27-0400 Body mass index (BMI) [Ratio] 30.5 kg/m2 MD Haroldo Hollis [facility] 01-30-2023 11:27-0400 Body weight 96.61 kg MD Haroldo Hollis [facility] 01-30-2023 11:27-0400 Diastolic blood pressure 67 mm[Hg] MD Haroldo Hollis [facility] 01-30-2023 11:27-0400 Heart rate 62 /min MD Haroldo Hollis [facility] 01-30-2023 11:27-0400 Respiratory rate 16 /min MD Haroldo Hollis [facility] 01-30-2023 11:27-0400 Systolic blood pressure 110 mm[Hg] MD Haroldo Hollis [facility] 12-15-2022 00:36-0400 Body weight 94.8 kg MD Haroldo Hollis [facility] 11-28-2022 10:04-0400 Body height 177.8 cm MD Haroldo Hollis [facility] 11-28-2022 10:04-0400 Body weight 94.8 kg MD Haroldo Hollis [facility] 10-31-2022 11:06-0400 Body height 177.8 cm MD Haroldo Hollis [facility] 10-31-2022 11:06-0400 Body weight 95.7 kg MD Haroldo Hollis [facility] 10-29-2022 10:10-0400 Body weight 95.25 kg Haroldo Hollis MD Work Phone: [facility] 10-29-2022 10:10-0400 Diastolic blood pressure 74 mm[Hg] Haroldo Hollis MD Work Phone: [facility] 10-29-2022 10:10-0400 Heart rate 68 /min Haroldo Hollis MD Work Phone: [facility] 10-29-2022 10:10-0400 Respiratory rate 16 /min Haroldo Hollis MD Work Phone: [facility] 10-29-2022 10:10-0400 Systolic blood pressure 120 mm[Hg] Haroldo Hollis MD Work Phone: [facility] 10-15-2022 00:30-0500 Body weight 97.29 kg MD Haroldo Hollis [facility] 10-03-2022 11:25-0500 Body height 177.8 cm MD Haroldo Hollis [facility] 10-03-2022 11:25-0500 Body weight 97.29 kg MD Haroldo Hollis [facility] 09-23-2022 09:47-0500 Body height 177.8 cm MD Haroldo Hollis [facility] 09-23-2022 09:46-0500 Body mass index (BMI) [Ratio] 30.9 kg/m2 MD Haroldo Hollis [facility] 09-23-2022 09:46-0500 Body weight 97.97 kg MD Haroldo Hollis [facility] 09-23-2022 09:46-0500 Diastolic blood pressure 82 mm[Hg] MD Haroldo Hollis [facility] 09-23-2022 09:46-0500 Heart rate 62 /min MD Haroldo Spicer [facility] 09-23-2022 09:46-0500 Respiratory rate 18 /min MD Haroldo Spicer [facility] 09-23-2022 09:46-0500 SaO2% (BldA) [Mass fraction] 98 % MD Haroldo Hollis [facility] 09-23-2022 09:46-0500 Systolic blood pressure 137 mm[Hg] MD Haroldo Hollis [facility] 09-03-2022 14:22-0500 Body height 177.8 cm [facility] 14:22-0500 Body weight 98.42 kg [facility] 09-03-2022 13:27-0500 Body mass index (BMI) [Ratio] 30.7 kg/m2 MD Haroldo Hollis [facility] 09-03-2022 13:27-0500 Heart rate 64 /min [facility] 09-03-2022 13:27-0500 SaO2% (BldA) [Mass fraction] 98 % MD Haroldo Hollis [facility] 08-30-2022 20:30-0500 Body height 179.07 cm MD Haroldo Hollis [facility] Work Phone: 08-30-2022 20:30-0500 Body mass index (BMI) [Ratio] 29.9 kg/m2 MD Haroldo Hollis [facility] 08-30-2022 20:30-0500 Body temperature 97.7 [degF] MD Haroldo Spicer [facility] 08-30-2022 20:30-0500 Body weight 96.16 kg [facility] 08-30-2022 20:30-0500 Diastolic blood pressure 89 mm[Hg] MD Haroldo Hollis [facility] 08-30-2022 20:30-0500 Heart rate 93 /min [facility] 08-30-2022 20:30-0500 Respiratory rate 18 /min MD Haroldo Hollis [place] [facility] 08-30-2022 20:30-0500 SaO2% (BldA) [Mass fraction] 100 % MD Haroldo Hollis [facility] 08-30-2022 20:30-0500 Systolic blood pressure 160 mm[Hg] MD Haroldo Hollis [facility] 08-29-2022 09:57-0500 Body temperature 96.69 [degF] Haroldo Hollis MD Work Phone: [facility] 08-29-2022 09:57-0500 Body weight 97.98 kg Haroldo Hollis MD Work Phone: [facility] 08-29-2022 09:57-0500 Diastolic blood pressure 68 mm[Hg] Haroldo Hollis MD Work Phone: [facility] 08-29-2022 09:57-0500 Heart rate 62 /min Haroldo Hollis MD Work Phone: [facility] 08-29-2022 09:57-0500 Respiratory rate 18 /min Haroldo Hollis MD Work Phone: [facility] 08-29-2022 09:57-0500 SaO2% (BldA) [Mass fraction] 94 % Haroldo Hollis MD Work Phone: [facility] 08-29-2022 09:57-0500 Systolic blood pressure 114 mm[Hg] Haroldo Hollis MD Work Phone: [facility] 08-26-2022 13:35-0500 Body temperature 97.9 [degF] MD Haroldo Hollis [place] [facility] 08-26-2022 13:35-0500 Diastolic blood pressure 84 mm[Hg] MD Haroldo Hollis [facility] 08-26-2022 13:35-0500 Heart rate 67 /min MD Haroldo Spicer [facility] 08-26-2022 13:35-0500 Respiratory rate 16 /min MD Haroldo Spicer [facility] 08-26-2022 13:35-0500 SaO2% (BldA) [Mass fraction] 97 % MD Haroldo Hollis [facility] 08-26-2022 13:35-0500 Systolic blood pressure 122 mm[Hg] MD Haroldo Hollis [facility] 08-25-2022 01:53-0500 Body mass index (BMI) [Ratio] 31.2 kg/m2 MD Zarco Hollis [facility] 08-25-2022 01:53-0500 Body weight 98.8 kg MD Haroldo Hollis [facility] 08-25-2022 01:22-0500 Diastolic blood pressure 94 mm[Hg] [facility] Work Phone: 08-25-2022 01:22-0500 Heart rate 72 /min [facility] Work Phone: 08-25-2022 01:22-0500 Respiratory rate 16 /min [facility] Work Phone: 08-25-2022 01:22-0500 SaO2% (BldA) [Mass fraction] 95 % [facility] Work Phone: 08-25-2022 01:22-0500 Systolic blood pressure 130 mm[Hg] [facility] Work Phone: 08-25-2022 01:02-0500 Body temperature 97.5 [degF] [facility] Work Phone: 08-24-2022 23:14-0500 Body height 177.8 cm [facility] Work Phone: 08-24-2022 23:14-0500 Body mass index (BMI) [Ratio] 30.1 kg/m2 [facility] Work Phone: 08-24-2022 23:14-0500 Body weight 95.25 kg [facility] Work Phone: 07-29-2022 13:51-0500 Body height 177.8 cm Dary Older [employer]ATEMAN[employer]COMMUNITY ARTIST Work Phone: [facility] 07-29-2022 13:51-0500 Body weight 101.61 kg Dary Older [employer]ATEMAN.COMMUNITY ARTIST Work Phone: [facility] 07-29-2022 13:51-0500 Diastolic blood pressure 85 mm[Hg] Dary Older PLATEMAN.COMMUNITY ARTIST Work Phone: [facility] 07-29-2022 13:51-0500 Heart rate 80 /min Dary Older PLATEMAN.COMMUNITY ARTIST Work Phone: [facility] 07-29-2022 13:51-0500 Respiratory rate 14 /min Dary Older PLATEMAN.COMMUNITY ARTIST Work Phone: [facility] 07-29-2022 13:51-0500 Systolic blood pressure 128 mm[Hg] Dary Older PLATEMAN.COMMUNITY ARTIST Work Phone: [facility] 01-14-2022 11:00-0400 Body height 179.[address] Zackary Carlos Work Phone: [facility] Work Phone: 01-14-2022 11:00-0400 Body mass index (BMI) [Ratio] 30.8 kg/m2 Dr. Zackary Carlos Work Phone: [facility] Work Phone: 01-14-2022 11:00-0400 Body temperature 98.4 [degF] Dr. Zackary Carlos Work Phone: [facility] Work Phone: 01-14-2022 11:00-0400 Body weight 98.[address] Zackary Calros Work Phone: [facility] Work Phone: 01-14-2022 11:00-0400 Diastolic blood pressure 84 mm[Hg] Dr. Zackary Carlos Work Phone: [facility] Work Phone: 01-14-2022 11:00-0400 Heart rate 84 /min Dr. Zackary Carlos Work Phone: [facility] Work Phone: 01-14-2022 11:00-0400 Respiratory rate 14 /min Dr. Zackary Carlos Work Phone: [facility] Work Phone: 01-14-2022 11:00-0400 SaO2% (BldA) [Mass fraction] 98 % Dr. Zackary Carlos Work Phone: [facility] Work Phone: 01-14-2022 11:00-0400 Systolic blood pressure 128 mm[Hg] Dr. Zackary Carlos Work Phone: [facility] Work Phone: 07-19-2020 13:05-0500 Body Temperature 98.4 [degF] [facility] lon 07-19-2020 13:05-0500 Body weight 91.17 kg [facility] ic 07-19-2020 13:05-0500 BP Diastolic 82 mm[Hg] [facility] ic 07-19-2020 13:05-0500 BP Systolic 138 mm[Hg] [facility] ic 07-19-2020 13:05-0500 Height 180.3 cm [facility] ic 07-19-2020 13:05-0500 Pulse (Heart Rate) 97 /min [facility]inic 07-19-2020 13:05-0500 Pulse Oximetry 99 % [facility] ic 07-19-2020 13:05-0500 Respiratory Rate 15 /min [facility] 05-31-2020 12:40-0400 Body Temperature 98.1 [degF] [facility] 05-31-2020 12:40-0400 Body weight 96.62 kg [facility] ic 05-31-2020 12:40-0400 BP Diastolic 79 mm[Hg] [facility] ic 05-31-2020 12:40-0400 BP Systolic 128 mm[Hg] [facility] ic 05-31-2020 12:40-0400 Height 180.3 cm [facility] ic 05-31-2020 12:40-0400 Pulse (Heart Rate) 67 /min [facility] linic 05-31-2020 12:40-0400 Pulse Oximetry 97 % [facility] ic Encounters Encounter Date Encounter Type Care Provider Facility Start: 06-09-2025 ambulatory You Hooper Facility:[facility] Start: 06-02-2025 ambulatory Jonna Mcintyre Facility: [facility] Start: 05-16-2025 End: 05-16-2025 Patient encounter procedure Jonna Mcintyre [employer] -Laboratory Work Phone: Start: 05-16-2025 End: 05-16-[address] Haroldo Hollis MD Work Phone: -[facility] Start: 04-05-2025 End: 04-05-2025 ambulatory Haroldo Hollis MD Work Phone: [facility] Comment on above: Allied Health Visit (Medication Adherence Outreach/) Start: 03-25-2025 End: 03-25-2025 Follow-up encounter Haroldo Hollis MD Work Phone: Internal [facility] Start: 03-20-2025 End: 03-20-2025 ambulatory HAROLDO HOLLIS Facility:[facility] Start: 03-17-2025 End: 03-17-2025 Office outpatient visit 25 minutes Haroldo Hollis MD Work Phone: Internal Medicine [facility] Comment on above: Primary hypertension (Primary Dx); Hyperlipidemia, unspecified hyperlipidemia type; Vitamin B12 deficiency; Hyperparathyroidism (HCC); Vitamin D deficiency; Coronary artery disease involving [place] coronary artery of [place] heart without angina pectoris; Myalgia due to statin Start: 03-17-2025 End: 03-17-2025 ambulatory HAROLDO HOLLIS Facility:[facility] Start: 01-16-2025 End: 01-16-2025 Patient encounter procedure Ej AVILEZ -[facility] Work Phone: Start: 01-16-2025 End: 01-16-[address] Haroldo Hollis MD Work Phone: [facility] Work Phone: Start: 12-21-2024 End: 12-21-2024 ambulatory Haroldo Hollis MD Work Phone: [phone] Comment on above: Allied Health Visit (Medication Adherence Outreach/) Start: 12-13-2024 ambulatory DARY Vann ity:[facility] Start: 12-13-2024 End: 12-13-2024 Subsequent hospital visit by physician Kurt [facility] Work Phone: Radiology Comment on above: Acute right-sided lo w back pain without sciatica [M54.50] Start: 12-13-2024 End: 12-13-2024 Follow-up encounter Dary Croft APRN.CNP Work Phone: Internal Medicine [place] Start: 12-13-2024 End: 12-13-2024 Office outpatient visit 15 minutes Dary Croft APRN.CNP Work Phone: Internal Medicine [place] Comment on above: Acute right-sided lo w back pain without sciatica (Primary Dx); Fall on steps, initial encounter Start: 12-13-2024 End: 12-13-2024 ambulatory DARY CROFT Facility:[facility] Start: 09-05-2024 End: 09-05-2024 ambulatory Haroldo Hollis Facility:[facility] Start: 09-01-2024 End: 09-01-2024 ambulatory HAROLDO HOLLIS Facility:[facility] Start: 09-01-2024 End: 09-01-2024 Patient encounter procedure Haroldo Hollis MD Work Phone: Internal Medicine [place] Comment on above: Medicare annual well ness visit, subsequent (Primary Dx); Chronic neck pain; Need for influenza vaccination; Screening for depression; Encounter for screening examination for other mental health and behavioral disorders; Hyperparathyroidism (HCC); Obesity, Class I, BMI 30-34.9; Vitamin B12 deficiency; Vitamin D deficiency; Primary hypertension; Hyperlipidemia, unspecified hyperlipidemia type; Coronary artery disease involving [place] coronary artery of [place] heart without angina pectoris; OLIVA on CPAP; Colon polyposis Start: 08-22-2024 End: 08-22-2024 ambulatory HAROLDO HOLLIS Facility:[facility] Start: 08-22-2024 End: 08-22-2024 Subsequent hospital visit by physician [facility] Work Phone: Radiology Comment on above: Urinary tract infect ion without hematuria, site unspecified [N39.0] Start: 08-18-2024 End: 08-19-2024 Telephone encounter Haroldo Hollis MD Work Phone: [facility] Medicine [facility] Comment on above: Results Start: 08-16-2024 End: 08-16-2024 ambulatory DARY CROFT Facility:[facility] Start: 08-16-2024 End: 08-16-2024 Patient encounter procedure Dary Croft PLATEMAN[employer]COMMUNITY ARTIST Work Phone: Internal Medicine [place] Comment on above: Dysuria (Primary Dx) Start: 08-01-2024 End: 08-01-2024 ambulatory Monserrat Stanford Facility:[facility] Start: 07-30-2024 End: 07-30-2024 Office outpatient visit 15 minutes Haroldo Hollis MD Work Phone: Internal Medicine [place] Comment on above: Urinary tract infect ion with hematuria, site unspecified (Primary Dx) Start: 07-30-2024 End: 07-30-2024 ambulatory HAROLDO HOLLIS Facility:[facility] Start: 07-20-2024 End: 07-20-2024 ambulatory DARY CROFT Facility:[facility] Start: 07-20-2024 End: 07-20-2024 Patient encounter procedure Dary Croft PLATEMAN.COMMUNITY ARTIST Work Phone: Internal Medicine [place] Comment on above: Dysuria (Primary Dx) Start: 07-11-2024 End: 07-11-2024 ambulatory Jigar Seals [facility] Start: 07-11-2024 End: 07-11-2024 Patient encounter procedure Jigar Seals MA [facility] Comment on above: Population Health Na vigation Outreach (Papo spicer ) Start: 07-06-2024 ambulatory Haroldo Hollis Facili ty:[facility] Start: 07-06-2024 End: 07-06-2024 ambulatory Haroldo Hollis Facility:[facility] Start: 06-01-2024 End: 06-01-2024 Telephone encounter Haroldo Hollis MD Work Phone: Internal Medicine [place] Comment on above: Consult Start: 05-12-2024 End: 05-12-2024 Refill Haroldo Hollis MD Work Phone: Family [facility] Comment on above: Refill Request Start: 04-13-2024 End: 04-15-2024 Refill Haroldo Hollis MD Work Phone: [facility] Medicine [facility] Comment on above: Refill Request Start: 01-26-2024 Telephone encounter Haroldo brumfield MD Work Phone: Internal Medicine [place] Comment on above: Orders Start: 11-25-2023 Refill Haroldo ramirez MD Work Phone: [facility] Comment on above: Insurance Authorizat ion Start: 11-23-2023 Telephone encounter Dary garcia [employer]ATEMAN.COMMUNITY ARTIST Work Phone: Family [facility] Comment on above: Question Start: 10-20-2023 End: 06-21-2024 Telephone encounter Tomaas Johnson MD Work Phone: General Surgery Comment on above: 02/10/2024 COLON MEDI NA ; Cardiac Clearance Start: 10-15-2023 ambulatory Haroldo ramirez MD Work Phone: [facility] Comment on above: Constipation Start: 10-15-2023 End: 10-15-2023 Patient encounter procedure Haroldo Hollis MD Work Phone: Internal [facility] [place] Comment on above: Constipation, unspec ified constipation type (Primary Dx) Start: 10-06-2023 End: 10-06-2023 ambulatory [facility] Work Phone: Start: 10-06-2023 End: 10-06-2023 Patient encounter procedure [facility] Work Phone: Start: 08-20-2023 End: 08-20-2023 ambulatory [facility] Work Phone: Start: 08-20-2023 End: 08-20-2023 Discharged Recurring [facility] Work Phone: Start: 07-16-2023 End: 07-16-2023 Patient encounter procedure Dary Dow APRN.COMMUNITY ARTIST Work Phone: [facility] Comment on above: Fatigue, unspecified type (Primary Dx); Vitamin B12 deficiency; PSA elevation; Vitamin D deficiency; Cervicalgia Start: 02-25-2023 End: 02-25-2023 Patient encounter procedure Haroldo Hollis MD Work Phone: Internal [facility] Comment on above: Medicare annual well ness visit, subsequent (Primary Dx); OLIVA on CPAP; Restless leg syndrome; Primary hypertension; Hyperlipidemia, unspecified hyperlipidemia type; Stented coronary artery (proximal RCA); Benign prostatic hyperplasia with lower urinary tract symptoms, symptom details unspecified Start: 01-30-2023 End: 01-30-2023 ambulatory MD Haroldo Hollis [facility] Work Phone: Start: 01-30-2023 End: 01-30-2023 Patient encounter procedure MD Haroldo Hollis [facility] Start: 12-15-2022 End: 01-14-2023 ambulatory MD Haroldo Hollis [facility] Work Phone: Start: 12-15-2022 End: 01-14-2023 Discharged Recurring MD Haroldo Hollis [facility] Start: 12-12-2022 End: 12-14-2022 ambulatory MD Haroldo Hollis [facility] Work Phone: Start: 12-12-2022 End: 12-14-2022 Discharged Recurring MD Haroldo Hollis [facility] Start: 11-14-2022 End: 11-14-2022 ambulatory MD Haroldo Hollis [facility] Work Phone: Start: 11-14-2022 End: 11-14-2022 Discharged Recurring MD Haroldo ARGUELLO [facility] Start: 11-03-2022 Telephone encounter Haroldo brumfield MD Work Phone: [facility] Comment on above: Fatigue; Patient Que stion Start: 10-29-2022 End: 10-29-2022 Patient encounter procedure Haroldo Hollis MD Work Phone: Internal [facility] Comment on above: Primary hypertension (Primary Dx); Stented coronary artery (proximal RCA); History of prostate surgery Start: 10-22-2022 Refill Haroldo raimrez MD Work Phone: [facility] Comment on above: Refill Request Start: 10-20-2022 Registered Recurring MD Haroldo ramirez [facility] Start: 10-16-2022 End: 10-16-2022 ambulatory MD Haroldo Hollis [facility] Work Phone: Start: 10-16-2022 End: 10-16-2022 Patient encounter procedure MD Haroldo Monetquez [facility]Labor[facility] Start: 10-13-2022 End: 10-14-2022 ambulatory MD Haroldo Hollis [facility] Work Phone: Start: 10-13-2022 End: 10-14-2022 Discharged Recurring MD Haroldo Monetquez [facility] Start: 09-29-2022 Registered Recurring MD Haroldo ramirez [facility] Start: 09-24-2022 End: 09-24-2022 Patient encounter procedure MD Haroldo Hollis [facility] Start: 09-24-2022 End: 09-24-2022 Refill Haroldo Hollis MD Work Phone: [facility] Comment on above: Refill Request Start: 09-23-2022 End: 09-23-2022 Patient encounter procedure MD Haroldo Hollis [facility] Start: 09-12-2022 End: 09-16-2022 [facility] Start: 09-12-2022 End: 09-16-2022 Discharged Recurring MD Haroldo Hollis [facility] Start: 09-12-2022 Registered Recurring MD Haroldo ramirez [facility] Start: 09-03-2022 End: 09-03-2022 [facility] Start: 09-03-2022 End: 09-03-2022 Patient encounter procedure MD Haroldo Hollis [facility] Start: 08-30-2022 End: 08-30-2022 Emergency department patient visit MD Haroldo Hollis [facility] Start: 08-29-2022 End: 08-29-2022 Patient encounter procedure Haroldo Hollis MD Work Phone: Internal Medicine [facility] Comment on above: NSTEMI (non-ST eleva cecilia myocardial infarction) (HCC) (Primary Dx); Primary hypertension; Hyperlipidemia, unspecified hyperlipidemia type; Stented coronary artery (proximal RCA); Chronic neck pain Start: 08-27-2022 Patient Outreach Haroldo polanco MD Work Phone: Internal Medicine [facility] Comment on above: Transition Of Care Start: 08-26-2022 Non-patient / Non-visit MD Haroldo Lennon [facility] Inpatient Physicians Start: 08-26-2022 Non-patient / Non-visit MD Haroldo Lennon [facility] Start: 08-25-2022 Non-patient / Non-visit MD Haroldo Lennon [facility] Start: 08-25-2022 End: 08-26-2022 Evaluation and management of inpatient MD Haroldo Hollis [facility] Start: 08-25-2022 Evaluation and management of inpatient [facility] Surgical 2 Start: 08-25-2022 Non-patient / Non-visit MD Haroldo Lennon [facility] Inpatient Physicians Start: 08-25-2022 observation encounter [facility] Work Phone: Start: 08-12-2022 Telephone encounter Haroldo brumfield MD Work Phone: Internal Medicine Post Comment on above: Patient Update Start: 07-29-2022 End: 07-29-2022 Patient encounter procedure Dary Dow APRN.COMMUNITY ARTIST Work Phone: Internal Medicine Post Comment on above: OLIVA on CPAP (Primary Dx); Chronic neck pain; Restless leg syndrome; Erectile dysfunction due to arterial insufficiency; Encounter to establish care with new doctor Start: 06-06-2022 End: 06-06-2022 ambulatory [facility] Work Phone: Start: 06-06-2022 End: 06-06-2022 Patient encounter procedure [facility] Start: 05-16-2022 Telephone encounter Xavier Hampton DO Work Phone: [facility] Comment on above: VBC Start: 01-27-2022 End: 01-27-[address] Zackary Carlos Work Phone: [facility] Start: 01-14-2022 End: 01-14-[address] Zackary Carlos Work Phone: [facility] Internal Medicine Start: 12-14-2021 Refill Xavier vanegas DO Work Phone: [facility] Comment on above: Refill Request Start: 01-24-2021 End: 01-24-2021 Telephone encounter Xavier Hampton DO Work Phone: Internal [facility] Comment on above: Medicare Wellness Ex am Start: 11-23-2020 End: 11-23-2020 Telephone encounter Xavier Hampton Work Phone: [facility] Comment on above: Patient Update Start: 11-19-2020 End: 11-19-2020 Patient encounter procedure Cristofer Weber Work Phone: [facility] Start: 08-28-2020 End: 08-28-2020 Refill Xavier Hampton Work Phone: [facility] Comment on above: Refill Request Start: 07-20-2020 End: 07-20-2020 Telephone encounter Xavier Hampton Work Phone: [facility] Comment on above: LMTCB Start: 07-19-2020 End: 07-19-2020 Patient encounter procedure Xavier Hampton Work Phone: [facility] Comment on above: Neck pain (Primary D x); Anxiety Start: 07-18-2020 End: 07-18-2020 Telephone encounter Xavier Hampton Work Phone: [facility] Comment on above: Medication Request Start: 06-14-2020 End: 06-14-2020 Telephone encounter Xavier Hampton Work Phone: [facility] Comment on above: Pre-op clearnce Start: 06-06-2020 End: 06-06-2020 Refill Xavier Hampton Work Phone: [facility] Start: 05-31-2020 End: 06-14-2020 Patient encounter procedure Xavier Hampton Work Phone: [facility] Comment on above: Cervical radiculopat hy (Primary Dx); Need for vaccination; Neck pain; Preoperative evaluation to rule out surgical contraindication; Fatigue, unspecified type; Benign prostatic hyperplasia with urinary obstruction; Vitamin D deficiency; Elevated fasting lipid profile; Abnormal movements; Elevated prostate specific antigen (PSA); Therapeutic drug monitoring Procedures Date Procedure Procedure Detail Performing Clinician Start: 12-13-2024 Radex spine lumbosac ral 2/3 views Dary Croft APRN.COMMUNITY ARTIST Work Phone: Start: 09-01-2024 Adult depression screening assessment Haroldo Hollis MD Work Phone: Start: 08-16-2024 Urnls dip stick/tabl et rgnt auto w/o microscopy Dary Croft APRN.CNP Work Phone: Start: 07-30-2024 Urnls dip stick/tabl et rgnt auto w/o microscopy Haroldo Hollis MD Work Phone: Start: 07-20-2024 Urnls dip stick/tabl et rgnt auto w/o microscopy Dary Croft PLATEMAN.COMMUNITY ARTIST Work Phone: Start: 09-24-2022 Computed tomography of abdomen and pelvis with contrast MD Haroldo Hollis Start: 08-24-2022 Plain chest X-ray Start: 08-17-2022 History of placement of stent for coronary artery disease History of coronary artery stent placement Ej Montano TANNING SALON ATTENDANTMichaelC Comment on above: PTCA/GIUSEPPE Prox RCA Re solute Óscar 4.0x18mm Start: 06-06-2022 Plain x-ray of pelvi s and lower extremity Start: 01-27-2022 X-ray of lumbar spin e, two or three views Dr. Zackary Carlos Work Phone: Start: 06-11-2020 ACTIVATED PTT Xavier Hampton Work Phone: Start: 06-11-2020 COMPLETE BLOOD COUNT W/AUTO DIFF Xavier Hampton Work Phone: Start: 06-11-2020 Comprehensive metabo lic 2000 panel Xavier Hampton Work Phone: Start: 06-11-2020 EXTERNAL LAB RESULT Cli arcadio Hampton Work Phone: Start: 06-11-2020 HEPATITIS PANEL, GENERAL Xavier Hampton Work Phone: Start: 06-11-2020 PROTHROMBIN TIME/PT Cli arcadio Hampton Work Phone: Start: 06-11-2020 URINALYSIS, MICROSCO PIC ([facility] ONLY) Xavier Hampton Work Phone: Start: 09-17-2019 History of transurethral prostatectomy History of transurethral resection of prostate Start: 05-12-2019 Colonoscopy Xavier amos Start: 09-10-2017 Adult depression screening assessment Cristofer Weber Start: 03-12-2011 H/O: artificial joint Knee dipesh nt replacement by other means Xavier Mccallmanuel DO Work Phone: H/O: surgery History of prost ate surgery Haroldo Hollis MD Work Phone: Plan of Treatment Date Care Activity Detail Author Start: 09-01-2034 Urine microalbumin profile DTaP,Tdap,Td Vaccine (2 - Td or Tdap) [facility] Start: 05-12-2029 Colonoscopy COLONOSCOPY [facility] Start: 05-12-2029 COLORECTAL CANCER SCREENING COLORECTAL CANCER SCREENING [facility] Start: 05-12-2029 Screening for malign ant neoplasm of colon [facility] Start: 03-20-2028 Diabetes Screening [facility] Start: 07-13-2026 [facility] Start: 03-20-2026 Hepatitis B surface antibody level LDL Cholesterol [facility] Start: 03-17-2026 Annual PCP Team Mill Representative lon Disease Visit Annual PCP Team Chronic Disease Visit [facility] Start: 12-13-2025 Annual PCP Team Mill Representative lon Disease Visit Annual PCP Team Chronic Disease Visit [facility] Start: 11-06-2025 DIABETES SCREEN DIABETES SCREEN [facility] Start: 09-01-2025 Annual PCP Team Mill Representative lon Disease Visit Annual PCP Team Chronic Disease Visit [facility] Start: 09-01-2025 Anxiety Screening Anxiety Screening [facility] Start: 09-01-2025 Covid-19 Vaccine ( season) Covid-19 Vaccine () [facility] Comment on above: Postponed from 04/17 (Declined at this time) Start: 09-01-2025 Depression Screening Depression Scre ening [facility] Start: 08-18-2025 End: 08-18-2025 Patient encounter procedure 08/18/2025 11:20 AM EST Office Visit Internal Medicine [facility] [address] [place] [id number] Haroldo Hollis MD [address] [place] [id number] MEDICARE wellness Internal Medicine Post Comment on above: MEDICARE wellness Start: 08-16-2025 Annual PCP Team Mill Representative lon Disease Visit Annual PCP Team Chronic Disease Visit [facility] Start: 07-30-2025 Annual PCP Team Mill Representative lon Disease Visit Annual PCP Team Chronic Disease Visit [facility] Start: 07-20-2025 Annual PCP Team Mill Representative lon Disease Visit Annual PCP Team Chronic Disease Visit [facility] Start: 05-16-2025 Radionuclide imaging of perfusion of myocardium under exercise stress [facility] Start: 05-16-2025 End: 05-16-2025 Evaluation of diagnostic study results [facility] Start: 04-17-2025 Influenza vaccination Influenza Vacc ine (#1) [facility] Start: 03-18-2025 End: 06-17-2025 25-hydroxyvitamin D3 [Mass/volume] in Serum or Plasma VITAMIN D 25 HYDROXY Lab Routine Vitamin D deficiency Expected: 03/18/2025, Expires: 06/17/2025 [facility] Comment on above: Expected: 03/18/2025 , Expires: 06/17/2025 Start: 03-18-2025 End: 06-17-2025 CBC panel - Blood by Automated count COMPLETE BLOOD COUNT Lab Routine Primary hypertension Expected: 03/18/2025, Expires: 06/17/2025 [facility] Work Phone: Comment on above: Expected: 03/18/2025 , Expires: 06/17/2025 Start: 03-18-2025 End: 06-17-2025 Cobalamin (Vitamin B12) [Mass/volume] in Serum or Plasma VITAMIN B12 Lab Routine Vitamin B12 deficiency Expected: 03/18/2025, Expires: 06/17/2025 [facility] Comment on above: Expected: 03/18/2025 , Expires: 06/17/2025 Start: 03-18-2025 End: 06-17-2025 Comprehensive metabolic 2000 panel - Serum or Plasma COMPREHENSIVE METABOLIC PANEL Lab Routine Hyperlipidemia, unspecified hyperlipidemia type Expected: 03/18/2025, Expires: 06/17/2025 [facility] Comment on above: Expected: 03/18/2025 , Expires: 06/17/2025 Start: 03-18-2025 End: 06-17-2025 Lipid 1996 panel - Serum or Plasma LIPID PANEL, FASTING Lab Routine Hyperlipidemia, unspecified hyperlipidemia type Expected: 03/18/2025, Expires: 06/17/2025 [facility] Comment on above: Expected: 03/18/2025 , Expires: 06/17/2025 Start: 03-02-2025 End: 03-02-2025 Patient encounter procedure 03/02/2025 8:40 AM EDT Office Visit Internal Medicine [facility] [address] [place], [place] [id number] Haroldo Hollis MD [address] [place] [address] 6 month follow-up Internal Medicine [facility] Comment on above: 6 month follow-up Start: 01-31-2025 LIPID SCREEN LIPID SCREEN [facility] Start: 10-14-2024 Annual PCP Team Mill Representative lon Disease Visit Annual PCP Team Chronic Disease Visit [facility] Start: 09-02-2024 End: 12-02-2024 25-hydroxyvitamin D3 [Mass/volume] in Serum or Plasma VITAMIN D 25 HYDROXY Lab Routine Vitamin D deficiency Expected: 09/02/2024, Expires: 12/02/2024 [facility] Comment on above: Expected: 09/02/2024 , Expires: 12/02/2024 Start: 09-02-2024 End: 12-02-2024 CBC panel - Blood by Automated count COMPLETE BLOOD COUNT Lab Routine Vitamin B12 deficiency Expected: 09/02/2024, Expires: 12/02/2024 [facility] Work Phone: Comment on above: Expected: 09/02/2024 , Expires: 12/02/2024 Start: 09-02-2024 End: 12-02-2024 Cobalamin (Vitamin B12) [Mass/volume] in Serum or Plasma VITAMIN B12 Lab Routine Vitamin B12 deficiency Expected: 09/02/2024, Expires: 12/02/2024 [facility] Comment on above: Expected: 09/02/2024 , Expires: 12/02/2024 Start: 09-02-2024 End: 12-02-2024 Comprehensive metabolic 2000 panel - Serum or Plasma COMPREHENSIVE METABOLIC PANEL Lab Routine Hyperlipidemia, unspecified hyperlipidemia type Expected: 09/02/2024, Expires: 12/02/2024 [facility] Comment on above: Expected: 09/02/2024 , Expires: 12/02/2024 Start: 09-02-2024 End: 12-02-2024 Lipid 1996 panel - Serum or Plasma LIPID PANEL BASIC Lab Routine Hyperlipidemia, unspecified hyperlipidemia type Expected: 09/02/2024, Expires: 12/02/2024 [facility] Comment on above: Expected: 09/02/2024 , Expires: 12/02/2024 Start: 09-01-2024 End: 09-01-2024 Patient encounter procedure 09/01/2024 8:00 AM EST Office Visit Internal Medicine [place] [address] [place], [place] [phone] Haroldo Hollis MD [address] [place], [place] [address] wellness check and review US kid/bladder Internal Medicine [facility] Comment on above: wellness check and r eview US kid/bladder Start: 08-22-2024 End: 08-22-2024 Patient encounter procedure 08/22/2024 11:30 AM EST Appointment Radiology [address] [place], [place] [phone] US KIDNEY/BLADDER Radiology Comment on above: US KIDNEY/BLADDER Start: 08-17-2024 Advance Directive Discussion Advance Directive Discussion [facility] Start: 07-17-2024 RSV Vaccine (1 - 1-d ose 60+ series) RSV Vaccine (1 - 1-dose 60+ series) [facility] Comment on above: Postponed from 02/13 (Declined at this time) Start: 07-17-2024 RSV Vaccine (1 - 1-d ose 75+ series) RSV Vaccine (1 - 1-dose 75+ series) [facility] Comment on above: Postponed from 02/13 (Declined at this time) Start: 07-16-2024 Annual PCP Team Mill Representative lon Disease Visit Annual PCP Team Chronic Disease Visit [facility] Start: 06-02-2024 End: 06-02-2024 Patient encounter procedure 06/02/2024 10:20 AM EDT Office Visit Internal Medicine Post [address] [place] [address] Haroldo Hollis MD [address] [place] [address] back pain Internal Medicine [facility] Comment on above: back pain Start: 04-17-2024 Covid-19 Vaccine () Covid-19 Vaccine () [facility] Start: 04-17-2024 Influenza vaccination Influenza Vacc ine (#1) [facility] Start: 03-09-2024 End: 03-09-2024 Patient encounter procedure 03/09/2024 3:00 PM EDT Appointment [facility] End[facility] [address] [place] [id number] Tomasa Johnson MD [address] [place] [id number] colon [facility] Comment on above: colon Start: 02-26-2024 ANNUAL PCP TEAM PROOF TECHNICIAN LON DISEASE VISIT ANNUAL PCP TEAM CHRONIC DISEASE VISIT [facility] Start: 02-26-2024 End: 02-26-2024 Patient encounter procedure 02/26/2024 9:20 AM EDT Office Visit Internal Medicine [facility] [address] [place] [address] Dary Croft, PLATEMAN.COMMUNITY ARTIST [address] [place] [address] 6 month follow up - Medicare Wellness Internal Medicine Post Comment on above: 6 month follow up - Medicare Wellness Start: 11-23-2023 End: 02-22-2024 Cobalamin (Vitamin B12) [Mass/volume] in Serum or Plasma VITAMIN B12 BLOOD Lab Routine Vitamin B12 deficiency Expected: 11/23/2023, Expires: 02/22/2024 [facility] Work Phone: Comment on above: Expected: 11/23/2023 , Expires: 02/22/2024 Start: 10-30-2023 ANNUAL PCP TEAM PROOF TECHNICIAN LON DISEASE VISIT ANNUAL PCP TEAM CHRONIC DISEASE VISIT [facility] Start: 10-30-2023 COVID-19 VACCINE (2 - Moderna series) COVID-19 VACCINE (2 - Moderna series) [facility] Comment on above: Postponed from 06/24 (Declined at this time) Postponed from 07/22 (Declined at this time) Start: 09-13-2023 Covid-19 Vaccine ( season) Covid-19 Vaccine ( season) [facility] Start: 08-29-2023 ANNUAL PCP TEAM PROOF TECHNICIAN LON DISEASE VISIT ANNUAL PCP TEAM CHRONIC DISEASE VISIT [facility] Start: 08-17-2023 Advance Directive Discussion Advance Directive Discussion [facility] Start: 08-17-2023 Behavioral Health Screening Behavioral Health Screening [facility] Start: 07-29-2023 Urine microalbumin profile [facility] Comment on above: Postponed from 07/22 (Declined at this time) Start: 06-11-2023 DIABETES SCREEN DIABETES SCREEN [facility] Start: 04-17-2023 Influenza vaccination INFLUENZA (#1) [facility] Start: 01-31-2023 DIABETES SCREEN DIABETES SCREEN [facility] Start: 11-06-2022 End: 01-06-2023 Basic metabolic 2000 panel - Serum or Plasma [facility] Work Phone: Comment on above: Expected: 11/06/2022 , Expires: 01/06/2023 Start: 11-06-2022 End: 01-06-2023 CBC panel - Blood by Automated count [facility] Work Phone: Comment on above: Expected: 11/06/2022 , Expires: 01/06/2023 Start: 11-06-2022 End: 01-06-2023 Cobalamin (Vitamin B12) [Mass/volume] in Serum or Plasma [facility] Work Phone: Comment on above: Expected: 11/06/2022 , Expires: 01/06/2023 Start: 09-03-2022 Patient referral to dietitian [facility] Start: 08-26-2022 Patient discharge [facility] Start: 08-25-2022 Patient referral [facility] Work Phone: Start: 08-25-2022 Ambulation without limitation [facility] Start: 08-25-2022 Cardiac monitoring [facility] Start: 08-25-2022 Cardiac rehabilitati on - phase 1 [facility] Start: 08-25-2022 Cardiac rehabilitati on - phase 2 [facility] Start: 08-25-2022 Notification of physician [facility] Start: 08-25-2022 Patient discharge [facility] Start: 08-25-2022 Provision of activit y privileges [facility] Start: 08-25-2022 Systemic arterial pressure monitoring [facility] Start: 08-25-2022 Taking patient vital signs [facility] Start: 08-25-2022 Vascular disease ris k assessment [facility] Start: 08-25-2022 Vital signs measurements [facility] Start: 08-25-2022 End: 08-25-2022 [facility] Start: 08-25-2022 Admission procedure [facility] Start: 08-25-2022 Catheterization of vein [facility] Start: 08-25-2022 Medication not administered [facility] Start: 08-25-2022 Notification of physician [facility] Start: 08-25-2022 [facility] Start: 08-25-2022 Referral to neurology technician [facility] Start: 08-25-2022 Assessment of risk o f venous thromboembolism [facility] Start: 08-25-2022 Insertion of cathete r into peripheral vein [facility] Start: 08-25-2022 Measuring intake and output [facility] Start: 08-25-2022 Oxygen therapy [facility] Start: 08-25-2022 Providing care accor ding to standard [facility] Start: 08-25-2022 Provision of activit y privileges [facility] Start: 08-25-2022 Tobacco use cessatio n education [facility] Start: 08-25-2022 [facility] Start: 08-25-2022 Following clinical pathway protocol [facility] Start: 08-25-2022 Verification routine [facility] Work Phone: Start: 08-25-2022 Admission procedure [facility] Start: 08-24-2022 Blood chemistry [facility] Work Phone: Start: 08-24-2022 End: 08-24-2022 [facility] Work Phone: Start: 08-17-2022 ADVANCE DIRECTIVE DISCUSSION ADVANCE DIRECTIVE DISCUSSION [facility] Start: 08-17-2022 DEPRESSION ASSESSMENT DEPRESSION ASS [facility] Start: 04-17-2022 Influenza vaccination [facility] Start: 08-17-2021 ADVANCE DIRECTIVE DISCUSSION ADVANCE DIRECTIVE DISCUSSION [facility] Start: 08-17-2021 [facility] Start: 07-19-2021 ANNUAL PCP TEAM PROOF TECHNICIAN LON DISEASE VISIT ANNUAL PCP TEAM CHRONIC DISEASE VISIT [facility] Start: 06-24-2021 COVID-19 VACCINE (2 - Moderna series) COVID-19 VACCINE (2 - Moderna series) [facility] Start: 05-31-2021 ANNUAL PCP TEAM PROOF TECHNICIAN LON DISEASE VISIT ANNUAL PCP TEAM CHRONIC DISEASE VISIT [facility] Start: 05-31-2021 BP CONTROLLED (<130/80) BP CONTROLLE D (<130/80) [facility] Start: 2021 RSV Vaccine (1 - 1-d ose 75+ series) RSV Vaccine (1 - 1-dose 75+ series) [facility] Start: 01-31-2021 Hepatitis B surface antibody level LDL Cholesterol [facility] Start: 07-21-2020 SHINGRIX VACCINE (2 of 2) SHINGRIX VACCINE (2 of 2) [facility] Start: 09-10-2018 Adult depression screening assessment DEPRESSION SCREENING [facility] Start: 2011 ADVANCE DIRECTIVE DISCUSSION ADVANCE DIRECTIVE DISCUSSION [facility] Start: 07-22-2003 Urine microalbumin profile DTaP,Tdap,Td Vaccine (1 - Tdap) [facility] Start: 02-14-1996 Screening for malign ant neoplasm of colon [facility] Start: 1991 COLOGUARD (FIT-DNA) COLOGUARD (FIT-D NA) [facility] Start: [address] COLONOGRAPHY [facility] Start: 1991 FECAL OCCULT BLOOD FECAL OCCULT BLOO D [facility] Start: 1991 SIGMOIDOSCOPY SIGMOIDOSCOPY [facility] Start: 1965 Urine microalbumin profile DTAP,TDAP,TD (1 - Tdap) [facility] Start: 02-14-1964 Anxiety Screening Anxiety Screening [facility] Start: 02-14-1964 BP CONTROLLED (<130/80) BP CONTROLLE D (<130/80) [facility] Start: 02-14-1964 Depression Screening Depression Scre ening [facility] Start: 1958 COVID-19 VACCINE (1) COVID-19 VACCIN E (1) [facility] Start: 1951 COVID-19 VACCINE (1) COVID-19 VACCIN E (1) [facility] Start: 1946 COVID-19 VACCINE (#1) COVID-19 VACCI NE (#1) [facility] End: 05-31-2021 aPTT Coag (PPP) [Time] ACTIVATED PTT Lab Routine Neck pain Preoperative evaluation to rule out surgical contraindication Cervical radiculopathy Fatigue, unspecified type Benign prostatic hyperplasia with urinary obstruction Vitamin D deficiency Elevated fasting lipid profile Abnormal movements Elevated prostate specific antigen (PSA) Therapeutic drug monitoring 1 Occurrences starting 05/31/2020 until 05/31/2021 [facility] Comment on above: 1 Occurrences starti ng 05/31/2020 until 05/31/2021 End: 05-31-2021 Bacteria identified Cx Nom (U) URINE CULTURE Microbiology Routine Neck pain Preoperative evaluation to rule out surgical contraindication Cervical radiculopathy Fatigue, unspecified type Benign prostatic hyperplasia with urinary obstruction Vitamin D deficiency Elevated fasting lipid profile Abnormal movements Elevated prostate specific antigen (PSA) Therapeutic drug monitoring 1 Occurrences starting 05/31/2020 until 05/31/2021 [facility] Comment on above: 1 Occurrences starti ng 05/31/2020 until 05/31/2021 Bacteria identified in Urine by Culture URINE CULTURE Microbiology Routine Dysuria 07/20/2024 9:42 AM [employer] [facility] Work Phone: Bacteria identified in Urine by Culture URINE CULTURE Microbiology Routine Dysuria 08/16/2024 9:36 AM [employer] [facility] Work Phone: End: 05-31-2021 CBC W Auto Differential panel - Blood CBC + DIFF Lab Routine Neck pain Preoperative evaluation to rule out surgical contraindication Cervical radiculopathy Fatigue, unspecified type Benign prostatic hyperplasia with urinary obstruction Vitamin D deficiency Elevated fasting lipid profile Abnormal movements Elevated prostate specific antigen (PSA) Therapeutic drug monitoring 1 Occurrences starting 05/31/2020 until 05/31/2021 [facility] Comment on above: 1 Occurrences starti ng 05/31/2020 until 05/31/2021 End: 05-31-2021 Comprehensive metabolic 2000 panel COMP METABOLIC PANEL Lab Routine Neck pain Preoperative evaluation to rule out surgical contraindication Cervical radiculopathy Fatigue, unspecified type Benign prostatic hyperplasia with urinary obstruction Vitamin D deficiency Elevated fasting lipid profile Abnormal movements Elevated prostate specific antigen (PSA) Therapeutic drug monitoring 1 Occurrences starting 05/31/2020 until 05/31/2021 [facility] Comment on above: 1 Occurrences starti ng 05/31/2020 until 05/31/2021 End: 05-31-2021 HEPATITIS PANEL, GENERAL HEPATITIS PANEL, GENERAL Lab Routine Neck pain Preoperative evaluation to rule out surgical contraindication Cervical radiculopathy Fatigue, unspecified type Benign prostatic hyperplasia with urinary obstruction Vitamin D deficiency Elevated fasting lipid profile Abnormal movements Elevated prostate specific antigen (PSA) Therapeutic drug monitoring 1 Occurrences starting 05/31/2020 until 05/31/2021 [facility] Comment on above: 1 Occurrences starti ng 05/31/2020 until 05/31/2021 Patient Education ED Hematuria [facility] Work Phone: Patient referral [facility] Work Phone: End: 05-31-2021 PT panel - Platelet poor plasma by Coagulation assay PROTHROMBIN TIME/PT Lab Routine Neck pain Preoperative evaluation to rule out surgical contraindication Cervical radiculopathy Fatigue, unspecified type Benign prostatic hyperplasia with urinary obstruction Vitamin D deficiency Elevated fasting lipid profile Abnormal movements Elevated prostate specific antigen (PSA) Therapeutic drug monitoring 1 Occurrences starting 05/31/2020 until 05/31/2021 [facility] Comment on above: 1 Occurrences starti ng 05/31/2020 until 05/31/2021 End: 01-18-2021 SARS-COVID VACCINE 1ST DOSE APPT SARS-COVID VACCINE 1ST DOSE APPT Procedures Routine 1 Occurrences starting 11/19/2020 until 01/18/2021 [facility] Comment on above: 1 Occurrences starti ng 11/19/2020 until 01/18/2021 Troponin I measurement [facility] Work Phone: End: 05-31-2021 Urinalysis complete panel - Urine URINALYSIS, WITH MICROSCOPIC Lab Routine Neck pain Preoperative evaluation to rule out surgical contraindication Cervical radiculopathy Fatigue, unspecified type Benign prostatic hyperplasia with urinary obstruction Vitamin D deficiency Elevated fasting lipid profile Abnormal movements Elevated prostate specific antigen (PSA) Therapeutic drug monitoring 1 Occurrences starting 05/31/2020 until 05/31/2021 [facility] Comment on above: 1 Occurrences starti ng 05/31/2020 until 05/31/2021 Heart [facility] End: 09-18-2025 US Kidney - bilateral and Urinary bladder US KIDNEY/BLADDER Radiology Routine Urinary tract infection without hematuria, site unspecified 1 Occurrences starting 08/19/2024 until 09/18/2025 [facility] Work Phone: Comment on above: 1 Occurrences starti ng 08/19/2024 until 09/18/2025 US Kidney - bilatera l and Urinary bladder US KIDNEY/BLADDER Radiology Routine Urinary tract infection without hematuria, site unspecified 08/22/2024 11:34 AM EST [facility] Work Phone: [facility] Immunizations Immunization Date Immunization Notes Care Provider [facility] 09-01-2024 influenza, high dose seasonal, preservative-free Haroldo Hollis MD Work Phone: [facility] 09-01-2024 influenza virus vacc ine, unspecified formulation Haroldo Hollis MD Work Phone: [facility] 05-14-2023 influenza (aIIV4) vaccine, age 65+ yr, quadrivalent, PF (FLUAD QUAD) Haroldo Hollis MD Work Phone: [facility] Work Phone: 05-14-2023 zoster vaccine recombinant Haroldo Hollis MD Work Phone: [facility] Work Phone: 05-14-2023 influenza virus vacc ine, unspecified formulation Haroldo Hollis MD Work Phone: [facility] 06-18-2022 Influenza, high dose seasonal Dr. 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 Work Phone: [facility] 05-26-2020 influenza, high-dose , quadrivalent vaccine (FLUZONE HIGH DOSE QUADRIVALENT) [facility] 05-26-2020 pneumococcal polysaccharide vaccine, 23 valent [facility] 05-26-2020 zoster vaccine recombinant [facility] 06-09-2019 influenza nasal, unspecified formulation [facility] 06-09-2019 influenza, high dose seasonal, preservative-free [facility] 06-09-2019 pneumococcal conjuga te vaccine, 13 valent [facility] 05-06-2018 influenza, high dose seasonal, preservative-free [facility] 06-09-2017 influenza, high dose seasonal, preservative-free [facility] Work Phone: 06-28-2016 influenza, high dose seasonal, preservative-free [facility] Work Phone: 07-14-2014 influenza, seasonal, injectable, preservative free [facility] Work Phone: 06-16-2011 pneumococcal polysaccharide vaccine, 23 valent [facility] DO Work Phone: [facility] 07-21-2003 TD(adult) unspecifie d formulation Dary 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 2019 Medicare HUMANA MEDICARE HUMANA MEDICARE PPO [id number] 2019-Present [phone] [address] [place] [address] PPO [id number] 2019 Medicare (Managed Care) HUMANA M EDJEAN PAULRE [id number] 2019 Medicare [id number] Unknown [id number] Unknown [id number] Unknown [id number] Unknown [id number] Unknown [id number] Unknown [id number] Unknown [id number] Unknown [id number] Unknown [id number] Social History Date Type Detail Facility Start: 05-31-2020 End: 07-05-2024 Tobacco smoking status NHIS Former smoker [facility] History of tobacco use Cigarette Smoker [facility] Start: 05-31-2020 End: 02-02-2023 Cigarettes smoked current (pack per day) - Reported [facility] Work Phone: Start: 05-31-2020 End: 07-20-2024 Tobacco use and exposure Never used [facility] Start: 05-31-2020 End: 03-17-2025 Alcohol intake Current drinker of alcohol (finding) [facility] Start: 09-10-2017 Alcohol Comment wine occasional [facility] Start: 1945 Sex Assigned At Not on file [facility] Exposure to SARS-CoV -2 (event) Not sure [facility] Start: 01-14-2022 End: 01-30-2023 Tobacco smoking status OHIS Unknown if ever smoked [facility] Start: 1945 Sex Assigned At Male [facility] History of tobacco use Current smoker [facility] Start: 07-29-2022 Tobacco Comment Quit over 30 years ago [facility] Start: 07-29-2022 Alcohol Comment occasional mixed drink-twice a week [facility] Start: 02-02-2023 End: 02-25-2023 Alcohol Use Disorder Identification Test - Consumption [AUDIT-C] [facility] Work Phone: How often to you hav e a drink containing alcohol? 2-3 time sa week [facility] Work Phone: How many standard dr inks containing alcohol do you have on a typical day? 1 or 2 [facility] Work Phone: How often do you hav e 6 or more drinks on 1 occasion? Never [facility] Work Phone: Start: 07-18-2012 Adult Depression Screening Assessment 0 [facility] Work Phone: Medical Equipment Procedure Code Equipment Code Equipment Original Text Equipment Identifier Dates Colonoscopy MARKER,ENDO SPOT CIELO INK FDA Start: 05-11-2024 Colonoscopy Ligation clip, metallic [id number] FDA Start: 07-06-2024 Colonoscopy MARKER,ENDO SPOT CIELO INK FDA Start: 05-11-2024 [id number] Start: 09-03-2011 Comment on above: For penile intracave rnosal injections for ED For use with B12 inj ections Drug-eluting coronary artery stent, non-bioabsorbabl [id number] FDA Start: 08-25-2022 Functional Status Date Assessment Result Facility 08-26-2022 Functional status Activity Abili ty Unable to Assess [facility] Work Phone: 08-25-2022 Functional status Patient Activity Bedres t [facility] Work Phone: Mental Status Date Assessment Result Facility 08-26-2022 Cognitive function Voice/Name [facility] Work Phone: 08-24-2022 Cognitive function Voice/Name [facility] Work Phone: Clinical Notes 06-16-2012 to 05-16-2025 Monserrat Haynes CPhT - 04/05/2025 2:56 PM EDTPatient InstructionsHaroldo Hollis MD - 03/17/2025 10:43 AM Monserrat Kenney CPhT - 12/21/2024 10:11 AM EDTPatient InstructionsPatient Instructions Note Date & Type Note Facility 05-16-2025 Progress note [facility] 05-12-2025 Note HNO ID: [id number] Author: ?, ?, ? Service: ? Author Type: ? Type: Progress Notes Filed: 05/12/2025 09:47 Note Text: POPULATION HEALTH NAVIGATION OUTREACH Action/FYI Patient outreach for HM due; flu Sent mcm to schedule Reason for Outreach Care Gap/HCC or Scheduling Wellness Visits Care Gaps due: Flu Vaccine Patient Contacted: Unable or unnecessary to reach patient: Urszulahart message sent Navigation Signature: Lexienatividad Nelson May 12, 2025 9:45 AM [facility] 05-12-2025 Note Patient Outreach (NICK TNAV) LUÍS HERNANDEZ ([id number]) 1945 M EXC Date Time Provider Department 05/12/25 HAROLDO HOLLIS During your visit today, we recorded the following information about you: Lexie Vail 05/12/2025 9:47 AM Signed POPULATION HEALTH NAVIGATION OUTREACH Action/I Patient outreach for HM due; flu Sent mcm to schedule Reason for Outreach Care Gap/HCC or Scheduling Wellness Visits Care Gaps due: Flu Vaccine Patient Contacted: Unable or unnecessary to reach patient: SafeTool message sent Navigation Signature: Lexie Nelson May 12, 2025 9:45 AM Allergies As of Date: 05/12/2025 Noted Allergy Reaction PERCOCET (OXYCODONE-ACETAMINOPHEN) 2 5 - Intolerance Comments: Anxiety and slurred words CODEINE 07/22/2005 2 - Rash Comments: itch, nightmares VICODIN (HYDROCODONE-ACETAMINOPHE*02/23/20 09 2 - Rash 9 - Itching Date Reviewed: 03/17/2025 Reviewed by: Nikki Jacques LPN - Fully Assessed Reason for Visit: Population Health Navigation Outreach [3910] Cmt: Papo Spicer Prescriptions as of 05/12/2025 - ezetimibe (ZETIA) [...] 30-34.9 [E66.811] 09/01/2024 Coronary artery disease involving ouzinkie jones*09/01/2024 Colon polyposis [K63.5] 05/11/2024 Myalgia due to statin [M79.10, T46.6X5A] 03/17/2025 Encounter Status:Closed by LEXIE VAIL on 05/12/25 [facility] 04-05-2025 Note HNO ID: [id number] Author: MONSERRAT HAYNES CPhT Service: ? Author Type: Planning Intern Type: Progress Notes Filed: 04/05/2025 14:58 Note Text: Patient is identified through a medication adherence outreach initiative based on pharmacy claims data from: [employer] Medication Adherence Category: Statins First Review Attribution [...] Hooper, as pravastatin gave him muscle aches Monserrat Haynes CPhT [facility] Based Care Pharmacy Team [facility] 04-05-2025 History of Present illness Narrative Patient is identified through a medication adherence outreach initiative based on pharmacy claims data from: [employer] Medication Adherence Category: Statins First Review Attribution [...] Hooper, as pravastatin gave him muscle aches Monserrat Haynes CPhT [facility] Pharmacy Team documented in this encounter [facility] 04-05-2025 Note Patient Outreach ( POHE) LUÍS HERNANDEZ ([id number]) 1945 M EXC Date Time Provider Department 04/05/25 [facility] During your visit today, we recorded the following information about you: Monserrat Haynes CPhT 04/05/2025 2:58 PM Signed Patient is identified through a medication adherence outreach initiative based on pharmacy claims data from: [employer] Medication Adherence Category: Statins First Review Attribution [...] Hooper, as pravastatin gave him muscle aches Monserrat Haynes CPhT [facility] Pharmacy Team Allergies As of Date: 04/05/2025 Noted Allergy Reaction PERCOCET (OXYCODONE-ACETAMINOPHEN) 2 5 - Intolerance Comments: Anxiety and slurred words CODEINE 07/22/2005 2 - Rash Comments: itch, nightmares VICODIN (HYDROCODONE-ACETAMINOPHE*02/23/20 09 2 - Rash 9 - Itching Date [...] 30-34.9 [E66.811] 09/01/2024 Coronary artery disease involving ouzinkie jones*09/01/2024 Colon polyposis [K63.5] 05/11/2024 Myalgia due to statin [M79.10, T46.6X5A] 03/17/2025 Encounter Status:Closed by MONSERRAT HAYNES on 04/05/25 [facility] 03-17-2025 Instructions Haroldo Hollis MD - 03/17/2025 11:05 AM EDT FASTING BLOOD WORK TOMORROW MORNING. documented in this encounter [facility] 03-17-2025 Note HNO ID: [id number] Author: HAROLDO HOLLIS MD Service: ? Author Type: Physician Type: [...] I, Bmi 30-34.9 Coronary Artery Disease Involving [place] Coronary Artery of [place] Heart Without Angina Pectoris Colon Polyposis Social [...] 25 HYDROXY 6. Coronary artery disease involving [place] coronary artery of [place] heart without angina pectoris - ICD9: 414.01, ICD10: I25.10 - Stable. 7. Myalgia due to statin - ICD9: 729.1, E942.2, ICD10: M79.10, T46.6X5A - Statins not tolerated: Haroldo Hollis MD [facility] 03-17-2025 History of Present illness Narrative Subjective Luís Hernandez is a 80 year [...] I, Bmi 30-34.9 Coronary Artery Disease Involving [place] Coronary Artery of [place] Heart Without Angina Pectoris Colon Polyposis Social [...] lb 14.4 oz) SpO2 94% BMI 32.62 kg/m Physical Exam Constitutional: General: He is [...] 25 HYDROXY 6. Coronary artery disease involving [place] coronary artery of [place] heart without angina pectoris - ICD9: 414.01, ICD10: I25.10 - Stable. 7. Myalgia due to statin - ICD9: 729.1, E942.2, ICD10: M79.10, T46.6X5A - Statins not tolerated: Haroldo Hollis MD documented in this encounter [facility] 12-21-2024 Note HNO ID: [id number] Author: MONSERRAT HAYNES CPhT Service: ? Author Type: Planning Intern Type: Progress Notes Filed: 12/21/2024 10:15 Note Text: Patient is identified through a medication adherence outreach initiative based on pharmacy claims data from: [employer] Medication Adherence Category: Statins First Review Attribution [...] PT to contact prescriber (non-[facility]) for refills Monserrat Haynes CPhT Value Based Care Pharmacy Team [facility] 12-21-2024 History of Present illness Narrative Patient is identified through a medication adherence outreach initiative based on pharmacy claims data from: [employer] Medication Adherence Category: Statins First Review Attribution [...] PT to contact prescriber (non-[facility]) for refills Monserrat Haynes CPhT Value Based Care Pharmacy Team documented in this encounter [facility] 12-21-2024 Note Patient Outreach ( POHE) LUÍS HERNANDEZ ([id number]) 1945 M EXC Date Time Provider Department 12/21/24 HAROLDO HOLLISOHDharmesh During your visit today, we recorded the following information about you: Monserrat Haynes CPhT 12/21/2024 10:15 AM Signed Patient is identified through a medication adherence outreach initiative based on pharmacy claims data from: [employer] Medication Adherence Category: Statins First Review Attribution [...] PT to contact prescriber (non-[facility]) for refills Monserrat Haynes CPhT [facility] Pharmacy Team Allergies As of Date: 12/21/2024 Noted Allergy Reaction PERCOCET (OXYCODONE-ACETAMINOPHEN) 2 5 - Intolerance Comments: Anxiety and slurred words CODEINE 07/22/2005 2 - Rash Comments: itch, nightmares VICODIN (HYDROCODONE-ACETAMINOPHE*02/23/20 09 2 - Rash 9 - Itching Date Reviewed: 12/13/2024 Reviewed by: Dary Croft, PLATEMAN.COMMUNITY ARTIST - Fully Assessed Reason for Visit: Allied [...] 30-34.9 [E66.811] 09/01/2024 Coronary artery disease involving ouzinkie jones*09/01/2024 Colon polyposis [K63.5] 05/11/2024 Encounter Status:Closed by MONSERRAT HAYNES on 12/21/24 [facility] 12-13-2024 Telephone encounter Note PATIENT NOTIFIED OF INFORMATION [facility] 12-13-2024 Miscellaneous Notes PATIENT NOTIFIED OF INFORMATION documented in this encounter [facility] 12-13-2024 History of Present illness Narrative Radiology Service Progress Note PATIENT NAME: Luís [...] PATIENT PRESENTS WITH AN IMPLANTABLE OR ATTACHED GIS MAPPING TECHNICIAN: No RADIOLOGY DEPARTMENT: General X-ray: Exam(s) Completed: Spine X-Ray(s): Lumbar AP / LAT / L5-S1 PERIPHERAL IV DATA: Not applicable SIGNED BY: RT Lyssa(Lorraine) December 13, 2024 2:38 PM documented in this encounter [facility] 12-13-2024 Note HNO ID: [id number] Author: NIRMALA CHING RT(R) Service: Radiology Author [...] PATIENT PRESENTS WITH AN IMPLANTABLE OR ATTACHED GIS MAPPING TECHNICIAN: No RADIOLOGY DEPARTMENT: General X-ray: Exam(s) Completed: Spine X-Ray(s): Lumbar AP / LAT / L5-S1 PERIPHERAL IV DATA: Not applicable SIGNED BY: RT Lyssa(R) December 13, 2024 2:38 PM [facility] 12-13-2024 Note HNO ID: [id number] Author: DARY CROFT APRN.COMMUNITY ARTIST Service: ? Author Type: Nurse Practitioner Type: Progress Notes Filed: 12/13/2024 11:52 Note Text: CC: Patient presents with: Back Pain: RT lower into middle x 4 days HPI Recording using [employer] software for draft documentation of the visit was discussed with the patient/authorized medical customer service representative; all questions welcomed and answered. Patient/authorized medical customer service representative agreed to proceed Luís is a [...] infarction) (HCC) 08/29/2022 OLIVA on CPAP 07/29/2022 [facility] Restless legs syndrome (RLS) Stented coronary artery [...] Knee replacement, total lt COLONOSCOPY 05/12/2019 in [place], repeat 3-5 years COLONOSCOPY SCREENING 2003 COLONOSCOPY STOMA W/BIOPSY SINGLE/MULTIPLE 06/2024 CORONARY STENT EA VESSEL 08/25/2022 PTCA/GIUSEPPE Prox. RCA Resolute Adel 4 x 18 mm LAMINECTOMY,CERVICAL 07/04/2020 NASAL/SPHENOID [...] cap Take by mouth. CALCIUM CARBONATE/VITAMIN D3 ( (more content not included)... [facility] 12-13-2024 History of Present illness Narrative Images from the original note were not included. CC: Patient presents with: Back Pain: RT lower into middle x 4 days HPI Recording using ambient SvitStyle software for draft documentation of the visit was discussed with the patient/authorized medical customer service representative; all questions welcomed and answered. Patient/authorized medical customer service representative agreed to proceed Luís is a [...] infarction) (HCC) 08/29/2022 OLIVA on CPAP 07/29/2022 [facility] Restless legs syndrome (RLS) Stented coronary artery [...] MEDIAL&LAT COMPARTMENTS 2010 Knee replacement, total lt COLONOSCOPY 05/12/2019 in [place], repeat 3-5 years COLONOSCOPY SCREENING 2003 COLONOSCOPY STOMA W/BIOPSY SINGLE/MULTIPLE 06/2024 CORONARY STENT EA VESSEL 08/25/2022 PTCA/GIUSEPPE Prox. RCA Resolute Óscar 4 x 18 mm LAMINECTOMY,CERVICAL 07/04/2020 NASAL/SPHENOID SINUS ENDOSCOPY,DX 10/07/2005 removal of cyst in sinus PARATHYROIDECTOMY/EXPLORATION PARATHYROIDS 2017 Dr lC goldsmith w/ dr Brooke PAST SURGICAL HISTORY [...] lb 13 oz) SpO2 99% BMI 31.93 kg/m Physical Exam Vitals reviewed. Constitutional: Appearance: [...] occur. Patient agreeable to treatment plan. Dary Croft APRN.COMMUNITY ARTIST documented in this encounter [facility] 12-13-2024 Instructions Dary Croft APRN.MICHELLE - 12/13/2024 11:47 AM EDT We discussed your low back pain following [...] This has been sent to your preferred [facility] pharmacy in [place]. - Take prednisone with food to avoid [...] please contact our office for further evaluation. documented in this encounter [facility] 09-01-2024 Instructions Haroldo Hollis MD - 09/01/2024 8:35 AM EST Fasting blood work soon. Screening schedule The [...] review all the medicines you take, even pnoc-zgb-bywkktw medicines. As you get older, the way [...] apply if you have certain medical conditions. documented in this encounter [facility] 09-01-2024 Note HNO ID: [id number] Author: HAROLDO HOLLIS MD Service: ? Author Type: Physician Type: Progress Notes Filed: 09/01/2024 09:42 Note Text: This note was created using [employer]. Subjective Luís Hernandez is a 79 year [...] I, Bmi 30-34.9 Coronary Artery Disease Involving [place] Coronary Artery of [place] Heart Without Angina Pectoris Colon Polyposis Social [...] - INFLUENZA VACCINE, PRSV FREE, AGE 65+ (more content not included)... [facility] 09-01-2024 History of Present illness Narrative This note was created using [employer]. Subjective Luís Hernandez is a 79 year [...] I, Bmi 30-34.9 Coronary Artery Disease Involving [place] Coronary Artery of [place] Heart Without Angina Pectoris Colon Polyposis Social [...] Size: Large Adult) Pulse 60 Temp 36.7 C (98 F) (Temporal) Resp 16 Ht 175.9 cm (5' 9.25) Wt 99.2 kg (218 lb 11.1 oz) BMI 32.06 kg/m Physical Exam Constitutional: General: He is [...] and benefit of weight loss. BMI 32.06 kg/(m^2) 11. Hyperlipidemia, unspecified hyperlipidemia type - ICD9: 272.4, ICD10: E78.5 - Control undetermined, due for labs - Continue current medications - Counseled on healthy diet and regular exercise - COMPREHENSIVE METABOLIC PANEL - LIPID PANEL BASIC 12. Coronary artery disease involving [place] coronary artery of [place] heart without angina pectoris - ICD9: 414.01, ICD10: I25.10 - Per cardiology. Medications updated. - CLOPIDOGREL 75 MG TABLET 13. OLIVA on CPAP - ICD9: 327.23, ICD10: G47.33 - Using and benefiting from regular CPAP use. Continue per Dr. Carpenter. 14. Colon polyposis - ICD9: 211.3, ICD10: K63.5 Updated. Recheck recommended in 3 years. Haroldo Hollis MD Images from the original note were not included. Luís Hernandez is a 79 year old [...] Current care team: Patient Care Team: Haroldo Hollis MD as PCP - General (Internal Medicine) Dary Croft APRN.COMMUNITY ARTIST as Lead Instructor/Flight Attendant (Internal Medicine) Outside specialists seen: Dr. Rebekah Ly, ophthalmology. Dr. Mihaela Dunn, urology. Dr. Henri Hooepr, cardiology. Dr. Malik Bower, ENT. Dr. Alyssa Stack, [facility] Dermatology. Dr. Hermes Meeks, Gastroenterology. [...] Functional Observation Was the patient's Timed Up & Go test unsteady or >= 12 seconds? No Advance Care Planning Surrogate decision maker and/or advance care plan documented Measurements BP 118/78 (BP Site: Left Arm, BP Position: Sitting, BP Cuff Size: Large Adult) Pulse 60 Temp 36.7 C (98 F) (Temporal) Resp 16 Ht 175.9 cm (5' 9.25) Wt 99.2 kg (218 lb 11.1 oz) BMI 32.06 kg/m Vision Screening: Follows with optometry/ophthalmology Right: 20/40 Left: 20/ 40 Both: 20/40 Assessment/Plan Medicare annual wellness visit, subsequent (Z00.00) - Counseled on healthy diet and regular exercise - Fall avoidance information provided - Personalized prevention plan provided - Discussed need for and benefit of weight loss. BMI 32.06 kg/(m^2) documented in this encounter [facility] 09-01-2024 Note HNO ID: [id number] Author: HAROLDO HOLLIS MD Service: ? Author Type: Physician Type: [...] Current care team: Patient Care Team: Haroldo Hollis MD as PCP - General (Internal Medicine) Dary Croft APRN.MICHELLE as Lead Instructor/Flight Attendant (Internal Medicine) Outside specialists seen: Dr. Rebekah Ly, ophthalmology. Dr. Mihaela Dunn, urology. Dr. Henri Hooper, cardiology. Dr. Malik Bower, ENT. Dr. Alyssa Stack, [facility] Dermatology. Dr. Hermes Meeks, Gastroenterology. [...] benefit of weight loss. BMI 32.06 kg/(m2) [facility] 08-22-2024 History of Present illness Narrative Radiology Service Progress Note PATIENT NAME: Luís [...] PATIENT PRESENTS WITH AN IMPLANTABLE OR ATTACHED GIS MAPPING TECHNICIAN: No RADIOLOGY DEPARTMENT: Ultrasound PERIPHERAL IV DATA: Not applicable SIGNED BY: Joy Urrutia RDMS RVShirley August 22, 2024 11:53 AM documented in this encounter [facility] 08-22-2024 Note HNO ID: [id number] Author: JOY URRUTIA RDMS Service: ? Author Type: Ski Maker Type: Progress Notes Filed: 08/22/2024 11:53 Note [...] PATIENT PRESENTS WITH AN IMPLANTABLE OR ATTACHED GIS MAPPING TECHNICIAN: No RADIOLOGY DEPARTMENT: Ultrasound PERIPHERAL IV DATA: Not applicable SIGNED BY: Joy Urrutia RDMS RVT August 22, 2024 11:53 AM [facility] 08-19-2024 Telephone encounter Note Patient notified of results and provider's instructions. Patient verbalizes understanding. Taylor Perez RN [facility] 08-19-2024 Miscellaneous Notes Patient notified of results and provider's instructions. Patient verbalizes understanding. Taylor Perez RN ASSESSMENT/PLAN: 1. Urinary tract infection without hematuria, site unspecified - ICD9: 599.0, ICD10: N39.0 - AMOXICILLIN 875 MG TABLET - US KIDNEY/BLADDER Schedule follow up with results and annual wellness visit. Haroldo Hollis MD Patient calls back and states that he noticed blood with clots in his urine. Patient asking about urine culture results and what next steps are? Patient continues with burning with urination. Patient's asking if issues could be from colonoscopy which was about a month ago? Patient's pharmacy is [facility]. Please review and advise, Taylor Perez RN documented in this encounter [facility] 08-19-2024 Telephone encounter Note ASSESSMENT/PLAN: 1. Urinary tract infection without hematuria, site unspecified - ICD9: 599.0, ICD10: N39.0 - AMOXICILLIN 875 MG TABLET - KIDNEY/BLADDER Schedule follow up with results and annual wellness visit. Haroldo Hollis MD [facility] 08-18-2024 Telephone encounter Note Patient calls back and states that he noticed blood with clots in his urine. Patient asking about urine culture results and what next steps are? Patient continues with burning with urination. Patient's asking if issues could be from colonoscopy which was about a month ago? Patient's pharmacy is [facility]. Please review and advise, Taylor Perez RN [facility] 08-16-2024 Note HNO ID: [id number] Author: DARY CROFT APRN.COMMUNITY ARTIST Service: ? Author Type: Nurse Practitioner Type: [...] infarction) (HCC) 08/29/2022 OLIVA on CPAP 07/29/2022 [facility] Restless legs syndrome (RLS) Stented coronary artery [...] Knee replacement, total lt COLONOSCOPY 05/12/2019 in [place], repeat 3-5 years COLONOSCOPY SCREENING 2003 CORONARY [...] lb 1.9 oz) SpO2 98% BMI 30.84 k (more content not included)... [facility] 08-16-2024 History of Present illness Narrative CC: Patient presents with: UTI: Dysuria x [...] infarction) (HCC) 08/29/2022 OLIVA on CPAP 07/29/2022 [facility] Restless legs syndrome (RLS) Stented coronary artery [...] MEDIAL&LAT COMPARTMENTS 2010 Knee replacement, total lt COLONOSCOPY 05/12/2019 in [place], repeat 3-5 years COLONOSCOPY SCREENING 2003 CORONARY STENT EA VESSEL 08/25/2022 PTCA/GIUSEPPE Prox. RCA Resolute Adel 4 x 18 mm LAMINECTOMY,CERVICAL 07/04/2020 NASAL/SPHENOID [...] lb 1.9 oz) SpO2 98% BMI 30.84 kg/m Physical Exam Vitals reviewed. Constitutional: Appearance: [...] occur. Patient agreeable to treatment plan. Dary Croft APRN.COMMUNITY ARTIST documented in this encounter [facility] 07-30-2024 Note HNO ID: [id number] Author: HAROLDO HOLLIS MD Service: ? Author Type: Physician Type: [...] - See urology for follow up. Haroldo Hollis MD [facility] 07-30-2024 History of Present illness Narrative This note was created using [employer]. Subjective Luís Hernandez is a 79 year [...] 12/30 For penile intracavernosal injections for ED No current facility-administered medications for this visit. Objective BP 128/80 Pulse 76 Resp 16 Wt 98.1 kg (216 lb 4.3 oz) SpO2 97% BMI 30.16 kg/m Physical Exam Constitutional: Appearance: He is [...] - See urology for follow up. Haroldo Hollis MD documented in this encounter [facility] 07-30-2024 Instructions Haroldo Hollis MD - 07/30/2024 11:[address] Dunn for follow up. documented in this encounter [facility] 07-20-2024 Instructions Dary Croft APRN.MICHELLE - 07/20/2024 9:18 AM EST URINARY TRACT INFECTION GENERAL INFORMATION: A urinary [...] Your symptoms return after you finish treatment. documented in this encounter [facility] 07-20-2024 Note HNO ID: [id number] Author: DARY CROFT APRN.COMMUNITY ARTIST Service: ? Author Type: Nurse Practitioner Type: [...] infarction) (HCC) 08/29/2022 OLIVA on CPAP 07/29/2022 [facility] Restless legs syndrome (RLS) Stented coronary artery [...] Knee replacement, total lt COLONOSCOPY 05/12/2019 in [place], repeat 3-5 years COLONOSCOPY SCREENING 2003 CORONARY [...] normal. Breath sounds: Normal breath sounds. Abdominal: Palpatio (more content not included)... [facility] 07-20-2024 History of Present illness Narrative CC: Patient presents with: UTI: Dysuria x [...] infarction) (HCC) 08/29/2022 OLIVA on CPAP 07/29/2022 [facility] Restless legs syndrome (RLS) Stented coronary artery [...] MEDIAL&LAT COMPARTMENTS 2010 Knee replacement, total lt COLONOSCOPY 05/12/2019 in [place], repeat 3-5 years COLONOSCOPY SCREENING 2003 CORONARY [...] Never BP 137/96 Pulse 73 Temp 36.9 C (98.4 F) (Temporal) Resp 16 Wt 100 kg (220 lb 7.4 oz) BMI 30.75 kg/m Physical Exam Vitals reviewed. Constitutional: Appearance: [...] occur. Patient agreeable to treatment plan. Dary Croft APRN.COMMUNITY ARTIST documented in this encounter [facility] 07-11-2024 Note HNO ID: [id number] Author: JIGAR SEALS MA Service: ? Author Type: Safety Relief Valve Technician Type: Progress Notes Filed: 07/11/2024 12:09 Note Text: POPULATION HEALTH NAVIGATION OUTREACH Action/FYI msg to schedule wellness, follow up, influenza Reason for Outreach Care Gap/HCC or Scheduling Wellness Visits Care Gaps due: Medicare Annual Wellness Visit Follow-up Appointment Flu Vaccine Patient Contacted: Unable or unnecessary to reach patient: Unable to leave message [employer] message sent Navigation Signature: Jigar Seals MA July 11, 2024 12:09 PM [facility] 07-11-2024 History of Present illness Narrative POPULATION HEALTH NAVIGATION OUTREACH Action/FYI msg to schedule wellness, follow up, influenza Reason for Outreach Care Gap/HCC or Scheduling Wellness Visits Care Gaps due: Medicare Annual Wellness Visit Follow-up Appointment Flu Vaccine Patient Contacted: Unable or unnecessary to reach patient: Unable to leave message [employer] message sent Navigation Signature: Jigar Seals MA July 11, 2024 12:09 PM documented in this encounter [facility] 07-11-2024 Note Patient Outreach (NICK DYERAV) LUÍS HERNANDEZ ([id number]) 1945 M EXC Date Time Provider Department 07/11/24 JIGAR SEALS During your visit today, we recorded the following information about you: Jigar Seals MA 07/11/2024 12:09 PM Signed POPULATION HEALTH NAVIGATION OUTREACH Action/I msg to schedule wellness, follow up, influenza Reason for Outreach Care Gap/HCC or Scheduling Wellness Visits Care Gaps due: Medicare Annual Wellness Visit Follow-up Appointment Flu Vaccine Patient Contacted: Unable or unnecessary to reach patient: Unable to leave message [employer] message sent Navigation Signature: Jigar Seals MA July 11, 2024 12:09 PM Allergies As of Date: 07/11/2024 Noted Allergy Reaction PERCOCET (OXYCODONE-ACETAMINOPHEN) 2 5 - Intolerance Comments: Anxiety and slurred words CODEINE 07/22/2005 2 - Rash Comments: itch, nightmares VICODIN (HYDROCODONE-ACETAMINOPHE*02/23/20 09 2 - Rash 9 - Itching Date Reviewed: 10/20/2023 Reviewed by: Jamee Tena, JOEL - Fully Assessed Reason for Visit: Population Health Navigation Outreach [3910] Cmt: Papo spicer Prescriptions as of 07/11/2024 - cyanocobalamin 1,000 [...] Encounter Status:Closed by JIGAR SEALS on 07/11/24 [facility] 07-06-2024 Note [facility] Medical Records Department [address] [place] [id number] History Physical Exam 07/06/24 0953 MR#: [id number] Acct: [id number] Name: LUÍS HERNANDEZ Rep #: [id number] : 1945 79 From: Devin Friend PCP: Dr. Haroldo Hollis MD Status:[facility] Location: [place] [address] History and Physical Date of Admission: 07/06/24 LUÍS HERNANDEZ, is a 79 M who presents to the office today for initial consult. Colonoscopy with Dr Crook 05.11.24 Preparation of the colon was fair. One 5 mm polyp in the mid ascending colon. Biopsied. One 20 mm polyp at the hepatic flexure, removed with a cold snare. Polyp resection was incomplete, and the resected tissue was partially retrieved. Tattooed. The examination was otherwise normal on direct and retroflexion views. *BGI established 05.26.24 pt reports that he was referred by Dr Crook following his colonoscopy. Reports that he is feeling well and denies GI symptoms of concern at this time. ROS Const Constitutional: No fatigue, fever(s) or weight change ENT ENT: No difficulty swallowing Gastro GI: No abdominal pain, belching, bloating, change in bowel habits, change in stool character, coffee ground emesis, constipation, cramping, diarrhea, heartburn, difficulty swallowing, feeling full early, excessive flatus, incontinent of stools, Vomiting blood/hematemesis, Blood in stool, loose stools, Black,tarry stools, nausea/dyspepsia, pain with swallowing, vomiting or other Musc Musculoskeletal: Positive for joint pain, back pain, muscle cramps, stiffness, Arthritis, sciatica and restless legs Skin Skin: No yellowing of the eye or itchy eyes Neuro Neurology: Positive for restless legs Psych Psychiatric: No anxiety and No depression Endo Endocrine: No fatigue or weight change Aller/Imm Allergy/Immunologic: No itchy eyes Vinnie/Lymp Hematologic/Lymphatic: Positive for easy bruising; No easy bleeding Exam Const General: cooperative and comfortable Nutritional Appearance: average body habitus and well nourished [facility] Head: normal to inspection Ears: hearing grossly normal bilaterally Nose: external nose normal Face and sinus: normal facial exam Mouth: oral mucosae normal Throat: posterior oropharynx normal Eyes General: appearance normal, both eyes and all related structures Neck Neck: normal visual inspection Chest Chest palpation inspection: normal inspection of the chest and normal palpation of entire chest wall Resp Effort Inspection: normal respiratory effort Auscultation: Bilateral: Clear to Auscultation Cardio Palpation: normal PMI Rate: regular rate Rhythm: regular rhythm GI Inspection: normal to inspection Auscultation: normal bowel sounds Percussion: normal to percussion Palpation: no hepatosplenomegaly Skin General: no rashes or lesions noted Neuro General: patient alert Extrem General: normal to inspection Psych Affect: normal affect Assessment and Plan Assessment and Plan (1) Villous adenoma: Status: Acute (2) History of colon polyps: Status: Chronic Comment: Patient is a 78-year-old male who arrives to schedule a surveillance colonoscopy given a history of colon polyps. Plan: He will undergo colonoscopy with removal of flat villous adenoma in the right side of the colon. He was explained alternatives, risk, benefits include not withstanding bleeding, infection, sepsis, perforation, need emergency . He will have an ASA of 3. I have examined the patient and the H P has been reviewed. There are no clinical changes since date of exam. 07/06/24 0953 Cosigner Signature (if applicable): CC: Dr. Haroldo Hollis MD; Devin Meeks DO Signed [facility] 06-01-2024 Telephone encounter Note Spoke with patient. Given message from provider's office. Patient verbalizes understanding. Appointment scheduled. Isaias River RN [facility] 06-01-2024 Miscellaneous Notes Spoke with patient. Given message from provider's office. Patient verbalizes understanding. Appointment scheduled. Isaias River RN Schedule appointment here first for evaluation. Patient calling, would like a recommendation on for a senior care specialist. States he has been having middle back pain for 1 month and would like to see someone. Please advise. documented in this encounter [facility] 06-01-2024 Telephone encounter Note Schedule appointment here first for evaluation. [facility] 06-01-2024 Telephone encounter Note Patient calling, would like a recommendation on for a senior care specialist. States he has been having middle back pain for 1 month and would like to see someone. Please advise. [facility] 05-12-2024 Telephone encounter Note Spoke to [facility], pharmacy never received RX for Cyanocobalamin, asking for new RX to be sent. Alyssa Munoz LPN [facility] 05-12-2024 Miscellaneous Notes Spoke to ANDRE/[place], pharmacy never received RX for Cyanocobalamin, asking for new RX to be sent. Alyssa Munoz LPN Prescription Refill Information The patient has been identified by name and date of : Yes Caregiver verified no other encounters exist for this prescription request: Yes Caregiver confirmed with patient/requestor that no other refills are due, in the near future, with this provider at this time: Yes Note: per patient ANDRE sent him a message he needed a new RX for this medication The last office visit in the department: 10/15/2023 Does the patient have a future office visit with this provider/department: No Requested Prescriptions Pending Prescriptions Disp Refills cyanocobalamin 1,000 mcg/mL 2 mL 11 Sig: Inject 1 mL intramuscularly every 2 weeks. Cathi Villafuerte May 12, 2024 9:30 AM documented in this encounter [facility] 05-12-2024 Telephone encounter Note Prescription Refill Information The patient has been identified by name and date of : Yes Caregiver verified no other encounters exist for this prescription request: Yes Caregiver confirmed with patient/requestor that no other refills are due, in the near future, with this provider at this time: Yes Note: per patient ANDRE sent him a message he needed a new RX for this medication The last office visit in the department: 10/15/2023 Does the patient have a future office visit with this provider/department: No Requested Prescriptions Pending Prescriptions Disp Refills cyanocobalamin 1,000 mcg/mL 2 mL 11 Sig: Inject 1 mL intramuscularly every 2 weeks. Cathi Villafuerte May 12, 2024 9:30 AM [facility] 04-15-2024 Telephone encounter Note Notified via [employer]. [facility] 04-15-2024 Miscellaneous Notes Notified via [employer]. Canceled follow-up/Medicare Wellness in February needs rescheduled Dary Croft APRN.CNP Prescription Refill Information The patient has been identified by name and date of : Yes Caregiver verified no other encounters exist for this prescription request: Yes Caregiver confirmed with patient/requestor that no other refills are due, in the near future, with this provider at this time: Yes The last office visit in the department: 10-15-23 Does the patient have a future office visit with this provider/department: No Requested Prescriptions Pending Prescriptions Disp Refills carbidopa-levodopa (SINEMET) 25-100 mg per tablet 90 tablet 3 Sig: Take one(1) tablet daily at bedtime. Lauren Cee April 13, 2024 10:57 AM documented in this encounter [facility] 04-14-2024 Telephone encounter Note Canceled follow-up/Medicare Wellness in February needs rescheduled Dary Croft APRN.COMMUNITY ARTIST [facility] 04-13-2024 Telephone encounter Note Prescription Refill Information The patient has been identified by name and date of : Yes Caregiver verified no other encounters exist for this prescription request: Yes Caregiver confirmed with patient/requestor that no other refills are due, in the near future, with this provider at this time: Yes The last office visit in the department: 10-15-23 Does the patient have a future office visit with this provider/department: No Requested Prescriptions Pending Prescriptions Disp Refills carbidopa-levodopa (SINEMET) 25-100 mg per tablet 90 tablet 3 Sig: Take one(1) tablet daily at bedtime. Lauren Cee April 13, 2024 10:57 AM [facility] 01-26-2024 Telephone encounter Note Patient calls to report that he is going to have his colonoscopy done with Dr. Crook and requests referral be sent to [facility]. Faxed to [phone] per request. Angella Murillo RN [facility] 01-26-2024 Miscellaneous Notes Patient calls to report that he is going to have his colonoscopy done with Dr. Crook and requests referral be sent to [facility]. Faxed to [phone] per request. Angella Murillo RN documented in this encounter [facility] 11-26-2023 Telephone encounter Note Patient called in rescheduled his colonoscopy from 02-09 to 03-09-2024 due to being out of town. Patient has his bowel prep and instructions. La Haque [facility] Work Phone: 11-26-2023 Miscellaneous Notes Patient called in rescheduled his colonoscopy from 02-09 to 03-09-2024 due to being out of town. Patient has his bowel prep and instructions. [place] X Cardiac clearance received. See scanned doc. Per neurology technician patient to be off Brillinta for 7 days prior to colonoscopy. Patient notified. Patient scheduled 02/10/[address] Johnson in [place] [employer] Cardiac clearance faxed see scanned doc 02/10/[address] Johnson patient to seek cardiac clearance prior to procedure. Patient sees [facility] Dr. Hooper. Dr. Johnson requesting clearance for holding Brillinta as well. Patient aware of steps needed to be taken prior to proceeding and is aware he will be given a call in regards to Brillinta once clearance is received [employer] documented in this encounter [facility] 11-25-2023 Miscellaneous Notes PA completed and this is not covered. The Medicare rule in the Prescription Drug Manual (Chapter 6, Section 20.1) says prescription vitamins and mineral products, are excluded from Medicare Part D coverage. Your drug is a prescription vitamin and/or mineral. Per Medicare rules, it is not covered. My chart message to pt. Will see about PA Prior Authorization Documentation Prior authorization requested for the following medication: Medication: cyancobalamin Provider: Dary Jovanny Insurance Company Name: [employer] Phone number: [phone] Patient ID number: ID [id number] [id number] Pharmacy Name: [facility] Telephone number: [phone] Angella Murillo RN documented in this encounter [facility] 11-25-2023 Miscellaneous Notes Patient's returned call and states they are using [facility] [place]. Script pended to reflect this. Thank you. Left message for Patient to call & verify pharmacy. Alyssa Munoz LPN [facility] [place] pended, is this correct? Dary Croft APRN.COMMUNITY ARTIST Spoke with pt and information listed below given. Pt verbalizes understanding. Pt would like to try 1 injection twice a month ( every 2 weeks). Send in new rx to the pharmacy. ----- Message from Dary Croft APRN.COMMUNITY ARTIST sent at 11/25/2023 8:59 AM EDT ----- Please let the patient know his B12 was in the mid range of normal. We can increase B12 injections to twice a month if he would like to however unclear if there will be any benefit with this. Dary Croft APRN.COMMUNITY ARTIST documented in this encounter [facility] 11-25-2023 Telephone encounter Note X [facility] 11-23-2023 Miscellaneous Notes Patient notified, verbalized understanding. Roverto Long MA Recommend checking B12 level first Dary Croft APRN.COMMUNITY ARTIST Pt. is taking Vit B 12 1 dose monthly. Asking if he can take it more often? He is getting good results but it wears off. Please advise. documented in this encounter [facility] 10-28-2023 Telephone encounter Note Cardiac clearance received. See scanned doc. Per neurology technician patient to be off Brillinta for 7 days prior to colonoscopy. Patient notified. Patient scheduled 02/10/[address] Johnson in [place] [employer] [facility] 10-20-2023 Telephone encounter Note Cardiac clearance faxed see scanned doc [facility] 10-20-2023 Telephone encounter Note 02/10/[address] Johnson patient to seek cardiac clearance prior to procedure. Patient sees [facility] Dr. Hooper. Dr. Johnson requesting clearance for holding Brillinta as well. Patient aware of steps needed to be taken prior to proceeding and is aware he will be given a call in regards to Brillinta once clearance is received [employer] [facility] 10-15-2023 History of Present illness Narrative This note was created using [employer]. Subjective Luís Hernandez is a 78 year old male. He started having constipation, with abdominal bloating 2 weeks ago. With no bowel movement for several days. Stool was noted to be round and hard. Miralax, and prune juice did not help. Fleet enema finally gave him relief 5 days ago, but again no bowel movement since then. His medications and diet had not changed. He indicated he had a colonoscopy in the past, but could not recall specifics. Review of Systems Constitutional: Negative for appetite change and unexpected weight change. Respiratory: Negative for shortness of breath. Cardiovascular: Negative for chest pain. Gastrointestinal: Positive for abdominal distention. Negative for abdominal pain, blood in stool, diarrhea, nausea, rectal pain and vomiting. Genitourinary: Negative for difficulty urinating. ACTIVE PROBLEM LIST Psa Elevation Oliva On [...] use: Never Current Outpatient Medications Medication Sig gabapentin (NEURONTIN) 300 mg capsule Take 1 capsule by mouth daily at bedtime for 180 days. cyanocobalamin 1,000 mcg/mL Inject 1 mL intramuscularly once every month. Syringe with Needle, Disp, (SYRINGE 3CC/25GX1) 3 [...] 12/30 For penile intracavernosal injections for ED No current facility-administered medications for this visit. Objective BP 120/68 Pulse (!) 56 Temp 36.7 C (98 F) (Temporal) Resp 16 Wt 97.1 kg (214 lb) BMI 29.85 kg/m Physical Exam Constitutional: Appearance: He is not ill-appearing or diaphoretic. Cardiovascular: Rate and Rhythm: Regular rhythm. Bradycardia present. Heart sounds: No murmur heard. No gallop. Pulmonary: Breath sounds: Normal breath sounds. Abdominal: General: Bowel sounds are normal. There is no distension. Palpations: Abdomen is soft. There is no hepatomegaly, splenomegaly or mass. Tenderness: There is abdominal tenderness in the left lower quadrant. There is no guarding or rebound. Genitourinary: Prostate: Enlarged. Not tender and no nodules present. Rectum: No mass or tenderness. Normal anal tone. Comments: Small hard clumpy brown stool. No impaction. Assessment and Plan 1. Constipation, unspecified constipation type - ICD9: 564.00, ICD10: K59.00 - DOCUSATE SODIUM 100 MG CAPSULE. Twice daily x 10 days. - POLYETHYLENE GLYCOL 3350 17 GRAM/DOSE ORAL POWDER. Daily. - Return if not better in 2 weeks. Haroldo Hollis MD documented in this encounter [facility] 10-15-2023 Miscellaneous Notes Triage Protocol Recommends: PCP Triage or see provider within 4 hours. Appt scheduled for this morning at 11am with Dr. Hollis. Please contact patient if PCP has other recommendations. Thank you Reason for Disposition [1] Constant abdominal pain AND [2] present > 2 hours Answer Assessment - Initial Assessment Questions Patient calling with concern for constipation over last 1-1.5 weeks. States he has never had a constipation problem before until now. No changes in lifestyle, recent illness or change in medications prior to constipation issues. Reports about 1 week ago he had no bowel movement for 7 days. Did enema and had some results. Now has not had BM in 4 days. Denies actual Pain but more of a constant mild abdominal ache. 11/24 1. STOOL PATTERN OR FREQUENCY: usually goes daily or every other day 2. STRAINING: denies 3. RECTAL PAIN: denies 4. STOOL COMPOSITION: usually normal 5. BLOOD ON STOOLS: no 6. CHRONIC CONSTIPATION: no 7. CHANGES IN DIET OR HYDRATION: denies 8. MEDICINES: no new medications or changes 9. LAXATIVES: -takes red gel cap laxative every evening but forgets the name of it -Did enema x 1 with some result, miralax x 2, hot prune juice, lots of water 10. ACTIVITY:remains active per usually daily routine 11. CAUSE: Pt unsure 12. OTHER SYMPTOMS: -4 out of 10 abdominal ache, denies any sharp pain -has not stopped him from doing his every day things -has bloating -lots of rumbling and gurgling in his stomach -has gas -no nausea -no vomiting -no fever -no blood in bowel movements -no rectal bleeding -no h/o hemorrhoids, rectal fissures, or rectal surgery or rectal abscess -appetite good 13. MEDICAL HISTORY: denies Protocols used: [id number]-OR documented in this encounter [facility] 08-20-2023 Discharge summary Note Date/Time August 20, 2023 11:23am [facility] [address] [place] [address] [address] [place] [address] / REHABILITATION SERVICES DISCHARGE SUMMARY MR#: [id number] Acct: [id number] Name: LUÍS HERNANDEZ Rep #: [id number] 05 : 1945 78 From: Ortiz Jean DPT, KOSTAS, CSCS Referring Dr.: FATMATA Dow Status: REG RCR Insurance: [employer] MEDICARE PPO SELF PAY INSURANCE Discharge Summary D/C summary: It has been my pleasure to treat LUÍS HERNANDEZ referred by FATMATA Strong,with the diagnosis of cervicalgia for a total of 12 visit(s). Discharge Date: 08/20/23 Please see the following information for a summary of their discharge status. Subjective Subjective: Stiff this morning and most mornings, works out in a couple hours. HEP going well adn will continue. To doctor no time soon. Pain 3/10 in last week intermittently. Pain L neck and arm: Pain Intensity (Out of 10): 0 Overall Improvement % Improvement: 50 Objective Objective/Function: 50 extension 44 L rot adn 48 r rotation, transient pain. UE strength symmetrical and 4/5 Pt feeling better and seems to realize limitations. Wants to continue on his own at this point. Goals Goal 1:: symmetrical neck rotation ROM without pain and 35 extension. Goal Progress: Progressing Goal 2:: pain in neck 1/10 at worst and 75% improved overall. Goal Progress: 50% Goal 3:: sleep without discomfort getting to rest at night Goal Progress: Goal Met Goal 4:: I appropriate stretch adn strengthening to manage condition Goal Progress: Goal Met Goal 5:: oswestry score neck at 5 or less. Goal Progress: Progressing Plan Plan: d/c to HEp/gym D/C Information Discharge Comments: Will continue via HEP and contact doctor if pain worsens d/c sentence: If there are questions or concerns regarding this patient's physical therapy, please feel free to call me at [phone]. Thank you for the referral of thispatient. Sincerely, Ortiz Jean DPT, KOSTAS, CSCS Balance/Gait/Functional tests Balance/Special Test Scores Oswestry Neck Score: 11 Improvement % Improvement: 50 <Electronically signed by KOSTAS Yancey DPT, CSCS> 08/20/23 1123 CC: FATMATA Dow; Dr. 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 He has some questions about his recent blood work and would like to review. Denies any other concerns today. He was seen last week for reoccurrence of neck pain and referred to PT. Patient had first PT session this week and will haveat least 12 total. PAST MEDICAL HISTORY Diagnosis [...] infarction) (HCC) 08/29/2022 OLIVA on CPAP 07/29/2022 [facility] Restless legs syndrome (RLS) Stented coronary artery [...] care. Dary Dow APRN.CNP [facility] History of Present illness Narrative* Haroldo Hollis MD - 02/25/2023 2:57 PM EDT This note was created using NoteWriter. Subjective Luís Hernandez is a 78 year [...] 64 Resp 24 Ht 180.3 cm (5' 11) Wt 97.1 kg (214 lb) BMI 29.85 [...] TABLET - DUTASTERIDE 0.5 MG CAPSULE Haroldo Hollis MD * Haroldo Hollis MD - 02/25/2023 2:42 PM EDT Luís Hernandez is a 78 year old male here for a Medicare Subsequent Annual Wellness Visit Health Risk Assessment In general, health is: Very good Concerns with balance:Not at all Concerns with teeth or dentures:Not at all Concerns with sexual function:Not at all [place] anxious, stressed, angry, irritable, lonely, isolated, or [...] Current care team: Patient Care Team: Haroldo Hollis MD as PCP - General (Internal Medicine) [...] with patient, and I recommended no further interventionat this time. Cognitive screening Mini Cog Score: [...] misuse screening and counseling documented in this encounterAden[facility]07-[facility]23 Instructions* Patient Instructions* Haroldo Hollis MD - 02/25/2023 2:50 PM EDT Advance Directive Forms Advanced Directives Forms (Greenlandic) FORMS: http://author.portals.[email or web address]/Portals/138/tezc-xknayx-lolv-aslqf-gt-vvssfhtw.pdf INFORMATIONAL BROCHURE: https://my.[facility].org/-/scassets/files/org/patients-visitors/inform ation/advance-directives.ashx?la=en Advance Directives (non-Greenlandic) FORMS: https://my.[facility].org/patients/information/lruwart-idmqlhhmp-xpron/adva nce-directives#forms-tab Please bring completed forms to your next appointment or email them to [email or web address]. Patient Resources How to Get Started Talking with Loved Ones about your Wishes at the End of Life https://theconversationproject.org/wp-content/uploads//ConversationProjec l-FhmyrMtygnriHkr-Wkpuwsu.pdf How to Navigate Conversations with your Care Team around your Preferences [email or web address].org/welcome Recombinant shingles vaccine (Shingrix) is recommended; 2 doses 2-6 months apart. Please read information, check with your insurance, and schedule vaccination at your local pharmacy. A prescription is not required. If you are certain you have coverage to receive this vaccine in the office, we can schedule this for you. documented in this encounterAdena [facility]03-23-2023 Miscellaneous Notes* Telephone Encounter - Alyssa Munoz LPN - 11/06/2022 1:21 PM EDT Patient notified PCP has ordered labs, verbalized understanding. Alyssa Munoz LPN * Telephone Encounter - Haroldo Hollis MD - 11/06/2022 12:46 PM EDT ASSESSMENT/PLAN: 1. Fatigue, unspecified type - ICD9: 780.79, ICD10: R53.83 - VITAMIN B12 BLOOD - CBC - BASIC METABOLIC PNL Haroldo Hollis MD * Telephone Encounter - Ela Hernandez LPN - 11/05/2022 9:32 AM EDT Patient calling back to check for PCP answer. Patient said last labs were done when he was in hospital in August, did not think he had Vitamin B 12 checked. * Telephone Encounter - Alycia Schneider LPN - 11/03/2022 11:26 AM EDT Pt calls to report at OV 10/29 he did not talk to pcp about the following sx he has had for the pastcouple of months: tired a lot, not much energy. Pt reports he used to get B12 injections in the past. Pt is asking if this is something he can do again. Asking if he needs to do labs. Please review and advise. Alycia Schneider LPN documented in this encounterAdena [facility]03-15-2023 History of Present illness Narrative* Haroldo Hollis MD - 10/29/2022 10:31 AM EDT This note was created using JAMR Labsriter. Subjective Luís Hernandez is a 77 year [...] if LUTS recur and are bothersome. Haroldo Hollis MD documented in this encounterAdena [facility] Center03-08-2023 Miscellaneous Notes* Telephone Encounter - Taylor Perez RN - 10/22/2022 9:33 AM EST Patient states that he uses medication for restless legs at night. Patient asking if this can be refill by provider? Last Office Visit: 08/29/2022 Future Office Visit: 10/29/2022 Requested Prescriptions Pending Prescriptions Disp Refills carbidopa-levodopa (SINEMET 25-100) 25-100 mg per tablet 90 tablet 1 Sig: Take 1 tablet by mouth daily at bedtime. Date of Last Labs: 08/27/2022 documented in this encounterAdena [facility] Center02-08-2023 Miscellaneous Notes* Telephone Encounter - Dary Dow APRN.CNP - 09/24/2022 4:16 PM EST Noted Dary Dow APRN.CNP * Telephone Encounter - Isaias River RN - 09/24/2022 3:50 PM EST Spoke with patient. Given message from provider's office. Patient verbalizes understanding. He states he is no longer having BPH symptoms and he is in cardiac rehab with frequent BP checks which are good. He says he will stop the Doxasozin and talk with his Urologist at appointment on 09/29/22. Isaias River RN * Telephone Encounter - Marcia Sofia LPN - 09/24/2022 3:01 PM EST Left a message for pt to call the office and ask to speak to a nurse. Marcia Sofia LPN * Telephone Encounter - Dary Dow APRN.CNP - 09/24/2022 12:[address] Hollis's note 08/29/22: Primary hypertension - ICD9: 401.9, [...] and is he experiencing any worsening urinary symptoms?If stable he should discontinue the Doxazosin Dary Dow APRN.CNP * Telephone Encounter - Cande Sofia Pss - 09/24/2022 8:56 AM EST Patient has been identified by name and date of : Yes Requested Prescriptions Pending Prescriptions Disp Refills doxazosin (CARDURA) 2 mg tablet 90 tablet 3 Sig: Take 1 tablet by mouth daily at bedtime. WENDY-08/29/22 Labs-09/01/22 NOV-10/29/22 med filled 08/29/22 RX INSTRUCTIONS: Patient aware RX will be sent to pharmacy. No need to notify patient. Cande Sofia Pss documented in this encounterAdena [facility] Center01-13-2023 History of Past illness Narrative* Problem Noted [...] of this encounter (statuses as of 10/29/2022) [facility] of Past illness Narrative* Problem Noted [...] of this encounter (statuses as of 11/06/2022) [facility] History of Past illness Narrative* Problem Noted [...] of this encounter (statuses as of 02/26/2023) [facility] of Past illness Narrative* Problem Noted [...] of this encounter (statuses as of 07/17/2023) [facility] History of Past illness Narrative* Problem Noted [...] PLAN: Continue cardura 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 Hypertrophy of prostate with out urinary obstruction and other lower urinary tract symptoms (LUTS) 07/22/2005 06/09/2007 documented as of this encounter (statuses as of 10/15/2023) [facility] of Past illness Narrative* Problem Noted [...] PLAN: Continue cardura 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 Hypertrophy of prostate with out urinary obstruction and other lower urinary tract symptoms (LUTS) 07/22/2005 06/09/2007 documented as of this encounter (statuses as of 10/16/2023) [facility] History of Past illness Narrative* Problem Noted [...] PLAN: Continue cardura 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 Hypertrophy of prostate with out urinary obstruction and other lower urinary tract symptoms (LUTS) 07/22/2005 06/09/2007 documented as of this encounter (statuses as of 11/23/2023) [facility] of Past illness Narrative* Problem Noted [...] PLAN: Continue cardura 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 Hypertrophy of prostate with out urinary obstruction and other lower urinary tract symptoms (LUTS) 07/22/2005 06/09/2007 documented as of this encounter (statuses as of 11/26/2023) [facility] History of Past illness Narrative* Problem Noted [...] PLAN: Continue cardura 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 TAKE DOXAZOSIN 2 MG AT BEDTIME X 30 DAYS. YOU CAN STOP THIS IF BLOOD PRESSURE AND URINATION ARE GOOD. documented in this encounterAdena [facility] Center01-13-2023 History of Present illness Narrative* Haroldo Hollis MD - 08/29/2022 10:35 AM EST This note was created using Black Drumm. Subjective Transitional Care Management Progress Note The patients TCM visit was performed within the 7 days of discharge. Patient's Date of discharge: 08/26/2022 Date of initial coordinator contact after discharge: 08/27/2022 Discharge diagnosis: NSTEMI, HTN, hyperlipidemia. Medication review completed Yes Hraoldo Hollis MD Provider Documentation: In follow-up of hospitalization, [...] corrected. - GABAPENTIN 300 MG CAPSULE Haroldo Hollis MD documented in this encounterAdena [facility] Center01-11-2023 History of Present illness Narrative* Deja Morales JUAN C - 08/27/2022 2:30 PM EST TRANSITION CARE MANAGEMENT (TCM) INITIAL CONTACT Safety Relief Valve Technician Outreach Provider Action/FYI: TCM Initial contact with patient post discharge, spoke to spouse. Patient identified by name and . TRANSITION CARE MANAGEMENT INITIAL OUTREACH DOCUMENTATION: Date of Outreach: 08/27/2022 Outreach Attempt 1: Contact Made Date of Discharge 08/26/2022 Some recent data might be hidden SUMMARY: -Pt discharged from [facility] on 08/26/22. -Admitted for: chest pain,non-STEMI Do [...] for provider to review documented in this encounterAdena [facility] Center01-01-2023 Evaluation note* Diagnosis Onset Date Resolution Status History of coronary artery stent placement August, acute Essential hypertension chron ic Hyperlipidemia [facility] Work Phone: 1(131) 342-754001-01-2023 Evaluation note* Diagnosis Onset Date Resolution Status Admit Date History of coronary artery stent placement August, acute January 16, 2025 8 :03am Essential hypertension chronic Ju 2024 8:03am Hyperlipidemia chronic January 16, 2025 8:03am [employer] Work Phone: 1(612) 203-875301-01-2023 Evaluation note* Diagnosis Onset Date Resolution Status Admit Date Fatigue acute April 11:00am History of coronary artery stent placement August, acute May 16, 2025 11:00am Midsternal chest pain acute Sep tember 2024 11:00am SOB (shortness of breath) acute May 16, 2025 11:00am Essential hypertension chronic Se ptember 2024 11:00am Hyperlipidemia chronic May 16, 2025 11:00am [employer] Work Phone: 1([phone]) 287-496112-27-2022 Miscellaneous Notes* Telephone Encounter - Dary Dow APRN.MICHELLE - 08/12/2022 2:01 PM EST Noted and [...] go to the ER. documented in this encounterAdena [facility] Center12-13-2022 History of Present illness Narrative* Dary Dow APRN.CNP - 07/29/2022 1:56 PM EST CC: Patient presents with: Establish Care HPI Luís Hernandez is a 77 year old male who presents today for above. Patient was living in [place] 6 months out of the year but decided to move back to [place] and only stay in [place] for a couple months a year. He was seeing Dr. Carlos but changed to Dr. Sahu however he will be retiring soon. BPH- urologist is Dr. Dunn. Recent PSA normal. He had TURP in 2020. He self administers intracavernosal injections of prostaglandin for ED, [facility] [place]. OLIVA: Is compliant with CPAP. No changes [...] Knee replacement, total lt NASAL/SPHENOID SINUS ENDOSCOPY,DX [id number] removal of cyst in sinus PARATHYROIDECTOMY/EXPLORATION PARATHYROIDS [...] 80 Resp 14 Ht 177.8 cm (5' 10) Wt 101.6 kg (224 lb) BMI 32.14 [...] Patient agreeable to treatment plan. Dary Dow APRN.MICHELLE documented in this encounterAdena [facility] Center09-30-2022 Miscellaneous Notes* Telephone Encounter - Claudia Johnson - 05/16/2022 2:15 PM EDT VALUE BASED CARE ENCOUNTER Patient identified by Name and : Yes Open Care Gaps Annual Wellness Visit Appointment due, unable to schedule Controlling Blood Pressure Recheck above > 140/90 Suspect Conditions external source: [facility]12 2019 Breast, Prostate, and Other Cancers and Tumors external source: [facility]72 2019 Spinal Cord Disorders/Injuries Outreach Outcome Unable to reach patient Left message Claudia Johnson Population Health Navigator II [phone] [phone] May 16, 2022 2:15 PM documented in this encounterAdena [facility] Center05-03-2022 Miscellaneous Notes* Telephone Encounter - Thi Adrian [...] Next appointment with MD: none Current Labs: 10/26/20 Date last rx given: 07/23/21 Original ordering physician: Dr. Hampton documented in this encounterAdena [facility] Center06-10-2021 Miscellaneous Notes* Telephone Encounter - Kita Weinberga - 01/24/2021 11:17 AM EDT Good afternoon, Please call [facility] to schedule your annual wellness visit with your primary care doctor. Thank you Merary Weinberg [phone] documented in this encounterAdena [facility] Center01-03-2020 History of Past illness Narrative* Problem Noted [...] of this encounter (statuses as of 07/29/2022) [facility] of [facility] illness Narrative* Problem Noted [...] of this encounter (statuses as of 08/18/2022) [facility] of [facility] illness Narrative* Problem Noted [...] of this encounter (statuses as of 08/27/2022) [facility] of Past illness Narrative* Problem Noted [...] of this encounter (statuses as of 08/29/2022) [facility] History of Past illness Narrative* Problem Noted [...] of this encounter (statuses as of 09/24/2022) [facility] History of Past illness Narrative* Problem Noted [...] of this encounter (statuses as of 10/22/2022) [facility] History of Past illness Narrative* Problem Noted [...] of this encounter (statuses as of 01/24/2021) [facility] of Past illness Narrative* Problem Noted [...] of this encounter (statuses as of 12/17/2021) [facility] of [facility] illness Narrative* Problem Noted [...] of this encounter (statuses as of 05/16/2022) [facility]* Diagnosis Onset Date Resolution Status Essential hypertension chron ic Hyperlipidemia chronic Encounter to establish care noneactive [facility] Work Phone: Evaluation noteNo assessment information available [facility] Work Phone: evalutbmgh note* Diagnosis OLIVA on CPAP- Primary Obstructive sleep apnea (adult) (pediatric) Chronic neck pain Cervicalgia Restless leg syndrome Restless legs syndrome (RLS) Erectile dysfunction due to arterial insufficiency Impotence of organic origin Encounter to establish care with new doctor Other reasons for seeking consultation documented in this encounter [facility]* Diagnosis Onset Date Resolution Status Unstable angina acute [facility] Work Phone: Evaluation note* Diagnosis NSTEMI (non-ST elevated myocardial infarction) ([facility])- Primary Acute myocardial infarction, subendocardial infarction, episode of care unspecified Primary hypertension Unspecified essential hypertension Hyperlipidemia, unspecified hyperlipidemia type Stented coronary artery (proximal RCA) Postsurgical percutaneous transluminal coronary angioplasty status Chronic neck pain Cervicalgia documented in this encounter [facility]* Diagnosis Onset Date Resolution Status NSTEMI, initial episode of care acute Essential hypertension chron ic Hyperlipidemia chronic [facility] Work Phone: Evaluation note* Diagnosis Primary hypertension Unspecified essential hypertension documented [facility] encounter [facility]* Diagnosis Onset Date Resolution Status Essential hypertension chron ic Hyperlipidemia chronic Atherosclerosis of coronary artery of [place] heart without angina pectoris acute Essential hypertension chron ic Hyperlipidemia chronic [facility] Work Phone: Evaluation note* Diagnosis Primary hypertension- Primary Unspecified essential hypertension Stented coronary artery (proximal RCA) Postsurgical percutaneous transluminal coronary angioplasty status History of prostate surgery Other postprocedural status [facility] Fatigue, unspecified type- Primary documented in this encounter [facility]* Diagnosis Onset Date Resolution Status Atherosclerosis of coronary artery of [place] heart without angina pectoris acute Essential hypertension chron ic Hyperlipidemia [facility] Work Phone: Evaluation note* Diagnosis Medicare annual wellness visit, subsequent- [...] symptom details unspecified documented in this encounter [facility]* Diagnosis Fatigue, unspecified type- Primary Vitamin B12 deficiency Other B-complex deficiencies PSA elevation Elevated prostate specific antigen (PSA) Vitamin D deficiency Unspecified vitamin D deficiency Cervicalgia documented in this encounter [facility]* Diagnosis Constipation, unspecified constipation type- Primary documented in this encounter [facility]* Diagnosis Vitamin B12 deficiency- Primary Other B-complex deficiencies [facility]* Diagnosis Restless leg syndrome Restless legs syndrome (RLS) [facility] Diagnosis Dysuria- Primary [facility]* Diagnosis Urinary tract infection with hematuria, site unspecified- Primary [facility] Diagnosis Dysuria- Primary [facility]* Diagnosis Urinary tract infection without hematuria, site unspecified- Primary [facility] Diagnosis Urinary tract infection without hematuria, site unspecified [facility]* Diagnosis Medicare annual wellness visit, subsequent- Primary Routine general medical examination at a health care facility Chronic neck pain Cervicalgia Need for influenza vaccination Need for prophylactic vaccination and inoculation against influenza Screening for depression Encounter for screening examination for other mental health and behavioral disorders Hyperparathyroidism (HCC) Hyperparathyroidism, unspecified Obesity, Class I, BMI 30-34.9 Obesity, unspecified Vitamin B12 deficiency Other B-complex deficiencies Vitamin D deficiency Unspecified vitamin D deficiency Primary hypertension Unspecified essential hypertension Hyperlipidemia, unspecified hyperlipidemia type Coronary artery disease involving [place] coronary artery of [place] heart without angina pectoris OLIVA on CPAP Obstructive sleep apnea (adult) (pediatric) Colon polyposis Benign neoplasm of colon documented [facility] encounter [facility]* Diagnosis Acute right-sided low back pain without sciatica- Primary Fall on steps, initial encounter documented [facility] this encounter [facility]* Diagnosis Primary hypertension- Primary Unspecified essential hypertension Hyperlipidemia, unspecified hyperlipidemia type Vitamin B12 deficiency Other B-complex deficiencies Hyperparathyroidism (HCC) Hyperparathyroidism, unspecified Vitamin D deficiency Unspecified vitamin D deficiency Coronary artery disease involving [place] coronary artery of [place] heart without angina pectoris Myalgia due to statin [facility] Additional Instructions Please follow-up with urology for repeat evaluation. If you develop lightheaded or dizziness or feel you are going to pass out or have worsening of bleeding please return to the ER for [facility] Phone: Progress note Author Jonna Mcintyre [facility] Note Date/Time May 16, 2025 11:25am [facility] [address] [place] [address] OFFICE VISIT Date of Service: 05/16/25 MR#: [id number] Acct: [id number] Name: LUÍS HERNANDEZ Rep #: [id number] : 1945 Provider: FATMATA Mcintyre Age/Sex: 80/M Location: [facility] Status: Signed HPI HPI History of Present Illness Details: This is a 80-year-old male who presents to the office today for a cardiovascularfollow-up. He was evaluated at [facility] in August 2022 for non-ST elevated myocardial infarction with peak high-sensitivity troponin was 1086. He underwent a heart catheterization that showed normal left main coronaryartery, LAD with mild disease, first diagonal vessel with 40% proximal stenosis,LCx with mild disease, dominant RCA with high-grade 95% proximal stenosis, and preserved left ventricular systolic function. He proceeded with drug-eluting stent to proximal RCA. Echocardiogram on 08/25/2022 showed an ejection fraction of 60% and no regional wall motion abnormalities. He also has a past medical history of hypertension and hyperlipidemia. From a cardiac standpoint, the patient is doing well. He does acknowledge midsternal chest pressure. He states this is constant, but worse with exertion and anxiety. He states that at times he does have pain in his shoulder blades. He denies any palpitations, chest pain, or heaviness. He does acknowledge occasional SOB with climbing stairs. He states this is worsening. He denies Orthopnea, and PND. He does not have bleeding issues; no blood in urine, stool, or nosebleeds. He does acknowledge fatigue. He denies any myalgias, or claudication. He does not have edema, or sudden weight gain. He does acknowledgeoccasional lightheadedness with quick positional changes. He denies dizziness, syncopal or near syncopal episodes, and headaches. Intake Vital Signs 01/16/25 06:37 05/16/25 07:56 Height 5 ft 11 in 5 ft 11 in Weight: 221 lb BMI 30.8 BP 117/75 Blood Pressure Location Lt brachial Position Sitting Respiration 18 Pulse 62 Pulse Source Monitor Pulse Oximetry (%) 9 Intake Visit Reasons: Episodes of chest pain off and on. L.L. Steam Hammer Operator Required: No Is patient in pain?: No Allergies codeine Adverse Reaction (Verified 05/16/25 11:15) unknown oxycodone (From Percocet) Adverse Reaction (Verified 05/16/25 11:15) unknown Medications ?Medication ?Instructions ?Recorded ?Confirmed ?Type carbidopa 25 mg-levodopa 100 mg 1 tab PO QHS RLS 06/2105/16/25 History tablet dutasteride 0.5 mg capsule 0.5 mg PO DAILY 01/30/23 History metoprolol tartrate 50 mg tablet 50 mg PO BID #180 TAB LETS 12/21/24 05/16/25 Rx cholecalciferol (vitamin D3) 25 25 mcg PO QDAY 5 05/16/25 History mcg (1,000 unit) capsule melatonin 3 mg capsule 3 mg PO HS PRN 01/16/2504/19 History clopidogrel 75 mg tablet (Plavix) 75 mg PO DAILY #90 t abs 02/01/25 05/16/25 Rx ezetimibe 10 mg tablet 10 mg PO QDAY #30 tabs 02/2805/16/25 Rx Ejection fraction %: 60 Have you fallen in the past year?: No PFSH Medical History (Reviewed 05/16/25 @ 13:03 by Jonna Mcintyre TANNING SALON ATTENDANT, TANNING SALON ATTENDANT-C) Fatigue Villous adenoma Alcohol use Thyroid disease Arthritis Prostate disease High cholesterol Back pain History of hiatal hernia Former smoker CPAP (continuous positive airway pressure) dependence Leg cramps History of heart attack Hypertension History of stress test History of echocardiogram Cardiology follow-up encounter Atherosclerosis of coronary artery of [place] heart without angina pectoris NSTEMI, initial episode of care Neuropathy Lightheadedness Uncontrolled hypertension Coronary artery calcification seen on CAT scan (12/2016) Insomnia Anxiety Osteoarthritis Hyperlipidemia Obesity Restless legs syndrome (RLS) Obstructive sleep apnea Cervical stenosis of spine BPH (benign prostatic hyperplasia) Essential hypertension Surgical History (Reviewed 05/16/25 @ 13:03 by Jonna Mcintyre TANNING SALON ATTENDANT, TANNING SALON ATTENDANT-C) Hx of colonoscopy History of cardiac catheterization History of coronary artery stent placement (~08/25/22) History of carpal tunnel surgery History of thyroid surgery Trigger finger History of knee replacement History of herniorrhaphy H/O cervical spine surgery (02/2020) History of transurethral resection of prostate (09/2019) Family History Sister Arthritis Mother Hypertension Other CVA (cerebral vascular accident) Social History Smoking Status: Former smoker quit date: 08/17/97 how long ago did patient quit smokin years ago alcohol intake: current alcohol intake frequency: a few times a week substance use type: does not use caffeine: Yes Type: coffee Number of servings: 3 ROS Const Const: Positive for fatigue; Negative for weakness, headache(s) or frequent falls Eyes Eyes: Negative for blurry vision ENT ENT: Negative for headache(s), dizziness or Nosebleed/epistaxis Cardio Chest Pain: Yes (pressure for about one month) Frequency: daily Character: other (pressure) Onset: at rest and exercise Location: mid sternal Exacerbation: activity Palpitations: No Edema: None Muscle aches with walking: None Resp Respiratory: Positive for SOB with activity; Negative for SOB at rest or SOB orthopnea\SOB lying down GI GI: Negative nausea, vomiting, heartburn, bright, red blood in stools or black,tarry stools : Negative for hematuria Neuro Neuro: Positive for lightheadedness; Negative for dizziness, near syncope, syncope, frequent falls, headache(s), weakness or blurry vision Endo Endo: Positive for fatigue Cardiology Exam Const Appearance: cooperative, healthy appearing, comfortable and no acute distress Nutritional Appearance: well nourished and obese Orientation: alert, awake and oriented x3 Head Head: normal to inspection Ears: hearing grossly normal bilaterally Nose: external nose normal Face and Sinus: face symmetric Eyes General: appearance normal, both eyes and all related structures Eyelids: eyelids normal EOM: EOM intact bilaterally Neck Neck: normal visual inspection and no JVD Carotids: normal carotid upstroke Chest Chest inspection: normal inspection of the chest, symmetric chest movement and normal respiratory effort; Negative cough Auscultation: Bilateral: Clear to Auscultation Cardio Rate: bradycardic Rhythm: regular rhythm Heart sounds: S1 normal and S2 normal; Negative rub, gallop or murmur GI GI: normal to inspection and obese Neuro General: patient alert, patient awake, patient oriented x3 and CN's II-XI intactbilaterally Skin Skin: no rashes or lesions noted Extremities Pulses: Normal: Right Posterior Tibial Pulse, Left Posterior Tibial Pulse, RightRadial Pulse and Left Radial Pulse Lower Extremity Edema: None: Bilateral Psych Psychological: normal affect Supplemental Info Supplemental Information Echocardiogram from 08/25/2022: Interpretation Summary Normal LV size. Left ventricular systolic function is normal. The estimated ejection fraction is 60 %. Stage 1 diastolic dysfunction. Contrast injection was performed. Heart catheterization from 08/25/2022: CONCLUSIONS Severe single-vessel disease involving the right coronary artery with mild disease in the LAD. RECOMMENDATIONS Referred for immediate PCI CORONARY ANGIOGRAPHY DOMINANCE: Right Dominant LEFT HEART ASSESSMENT Left Ventricular Ejection Fraction: by LV Gram 60 % Normal LV wall motion Normal Left Ventricular systolic function LEFT MAIN: Angiographically normal LEFT ANTERIOR DESCENDING ARTERY: Mild luminal irregularities less than 30% DIAGONAL 1: Proximal - Moderate luminal irregularities up to 50% CIRCUMFLEX ARTERY: Mild luminal irregularities Cardiac intervention from 08/25/2022: CONCLUSIONS Successful PTCA/GIUSEPPE Prox RCA using Resolute Adel 4.0x18 mm Abdomen/Pelvis CT 09/24/22 There is scattered atherosclerotic calcification of the abdominal aorta and its major visceral branches, without a demonstrated aneurysm. Normal inferior vena cava. Normal retroperitoneum. Labs: LDL Cholesterol, (0-130) 40 mg/dL HDL Cholesterol, (40-) 59 mg/dL Cholesterol, (200) 121 mg/dL Triglycerides, (-199) 110 mg/dL Diagnostics: Electrocardiogram Echocardiogram Cardiac Catheterization Cardiac Intervention Chest X-Ray Abdomen/Pelvis CT Past Visits: Cardiology Visit Today Assessment and Plan Assessment and Plan (1) History of coronary artery stent placement: Status: Acute Comment: PTCA/GIUSEPPE Prox RCA Resolute Óscar 4.0x18mm Plan: Patient has a history of coronary artery disease with stent placement to his proximal RCA. His most recent cardiac catheterization from August 2022 was reviewed with patient. His EKG from today demonstrates sinus bradycardia heart rate 58 bpm. He does acknowledge mid sternal pressure. Would like to obtain a treadmill nuclear stress test to assess for any ischemia. Depending on results,further recommendations will be made. He will continue Plavix 75 mg daily, and Zetia 10 mg daily. He will continue with aggressive risk factor and lifestyle modifications, as well as monitoring for any concerning symptoms. (2) Essential hypertension: Status: Chronic Plan: Patient has a history of hypertension. His blood pressure is well-controlled atthis time?117/75. He will continue metoprolol tartrate 50 mg twice daily, alongwith monitoring his blood pressures at home. He will notify our office of any persistently elevated or low blood pressure readings. (3) Hyperlipidemia: Status: Chronic Qualifiers: Hyperlipidemia type: mixed hyperlipidemia Qualified Code(s): E78.2 - Mixed hyperlipidemia Plan: Patient has a history of hyperlipidemia. His PCP monitors this. He will continue with the Zetia 10 mg daily, along with aggressive risk factor and lifestyle modifications. A copy of his most recent lipid panel would be greatlyappreciated for continuity of care. (4) Midsternal chest pain: Status: Acute Plan: He does acknowledge mid sternal pressure. His EKG from today demonstrates sinusbradycardia heart rate 58 bpm. Would like to obtain a treadmill nuclear stress test to assess for any ischemia. Depending on results, further recommendations will be made. (5) SOB (shortness of breath): Status: Acute Plan: Patient does acknowledge shortness of breath. Would like to obtain an echocardiogram, and lab work to further assess this. Depending on results, further recommendations will be made. (6) Fatigue: Status: Acute Plan: Patient acknowledges fatigue. Would like to obtain a treadmill nuclear stress test, echocardiogram, and lab work to further assess this. Depending on results, further recommendations will be made. Orders: Orders 12 Lead EKG performed by [facility] Today R07.89 - Other chest pain Nuclear Stress Test - Treadmil Today I25.10 - Atherosclerotic heart disease of [place] coronary artery without angina pectoris, R07.89 - Other chest pain, Z95.5- Presence of coronary angioplasty implant and graft Echo Complete Today R06.02 - Shortness of breath Basic Metabolic Profile (BMP) Today R06.02 - Shortness of breath CBC W/Diff, Automated Today R06.02 - Shortness of breath Thyroid Stim Hormone (TSH) Today R53.83 - Other fatigue Pro- Brain NATRIURETIC PEPTIDE Today R06.02 - Shortness of breath Plan Details Additional Comments: Patient will follow-up in 6-8 weeks, or sooner if needed. Thank you for allowing me to participate in the care of your patient. Please donot hesitate to call if any issues arise. This note was generated using a voice recognition system and there may be incorrect words, spelling, or punctuation that were not noted when reviewing theoffice note prior to saving. Portions of this documentation were copied and pasted from previous office visitnotes to provide cohesive continuity of the history. The note has been reviewed,edited, and updated, as necessary. Follow Up: 6-8 weeks (TANNING SALON ATTENDANT/PA) Coding Level of Care Code Off vis,est,level 4 Diagnoses History of coronary artery stent placement Z95.5 Essential hypertension I10 Mixed hyperlipidemia E78.2 Hyperlipidemia type: mixed hyperlipidemia Midsternal chest pain R07.89 SOB (shortness of breath) R06.02 Fatigue R53.83 Coding Level of Care Code Off vis,est,level 4 Diagnoses History of coronary artery stent placement Z95.5 Essential hypertension I10 Mixed hyperlipidemia E78.2 Hyperlipidemia type: mixed hyperlipidemia Midsternal chest pain R07.89 SOB (shortness of breath) R06.02 Fatigue R53.83 Clinical Quality Measures Falls Risk Screening/Assistive Devices Have you fallen in the past year?: No Cardiac Ejection fraction %: 60 05/16/25 1305 <Electronically signed by Jonna Mcintyre NP TANNING SALON ATTENDANT-C> Date _ Jonna Mcintyre NP TANNING SALON ATTENDANT-C Cosigner Signature: Date (if applicable) CC: ~ [facility] Work Phone: reason for referral (narrative)* Diagnostic Procedure Only (Routine) - Authorized Specialty Diagnoses / Procedures Referred By Frantz dietz Referred To Contact US IMAGING Diagnoses Urinary tract infection without hematuria, site unspecified Procedures US KIDNEY/BLADDER US RETROPERITONEAL REAL TIME W/IMAGE COMPLETE Haroldo Hollis MD [address] [place] [address] [place] [id number] Referral ID Status Reason Start Date Expiration Date Visits Requested Visits Authorized [id number] Authorized Auto-Generat ed Referral 08/19/2024 09/18/2025 1 1 [facility] for referral (narrative)No reason for referral [facility] Work Phone: [facility] for visit Narrative* Diagnostic Procedure Only (Urgent) - Closed Specialty Diagnoses / Procedures Referred By Frantz dietz Referred To Contact XR IMAGING Diagnoses Acute right-sided low back pain without sciatica Fall on steps, initial encounter Procedures XR LUMBAR GENERAL 3V AP/LAT/L5-S1 RADEX SPINE LUMBOSACRAL 2/3 VIEWS Dary Croft, PLATEMAN.COMMUNITY ARTIST [address] [place] [address] Phone: tel: fax: [place] [id number] Referral ID Status Reason Start Date Expiration Date V isits Requested Visits Authorized [id number] Closed Auto-Generate d Referral 12/13/2024 01/12/2026 1 1 [facility] History of Past Illness Problem Noted Date [...] FoundDocuments on File Type Date Recorded Patient Clinical Care Leader Expl anation Advance Directive(s) 03/14/2019 1:06 PM Advance Directive Response Recorded Date/ Time Name of Medical Power of Tugboat Engineer manas August 24, 2022 11:19pm Living Will Yes August 24 11:19pm Power of Tugboat Engineer Yes August 24 11:19pm Advance Directive Response Recorded Date/ Time Name of Medical Power of Tugboat Engineer August 25, 2022 1:53am Living Will No August 30 8:57pm Power of Tugboat Engineer No August 30, 2022 8:57pm Advance Directive Response Recorded Date/ Time Name of Medical Power of Tugboat Engineer August 25, 2022 1:53am Advance Directives on File No Francisco Javier ry 2022 1:27pm Living Will Yes September 03 1:27pm Power of Tugboat Engineer Yes September 03, 2022 1:27pm Advance Directive Response Recorded Date/ Time Name of Medical Power of Tugboat Engineer August 25, 2022 2:53am Advance Directives on File No Francisco Javier ry 2022 2:27pm Living Will Yes September 03 2:27pm Power of Tugboat Engineer Yes September 03, 2022 2:27pm Advance Directive Response Recorded Date/ Time Living Will Yes September 03 2:27pm Power of Tugboat Engineer Yes September 03, 2022 2:27pm Documents on File Type Date Recorded Patient Clinical Care Leader Expl anation Advance Directive(s) 04/01/2023 9:15 AM Advance Directive Response Recorded Date/ Time Living Will Yes September 03 1:27pm Power of Tugboat Engineer Yes September 03, 2022 1:27pm Documents on File Type Date Recorded Patient Clinical Care Leader Expl anation Advance Directive(s) 04/01/2023 9:15 AM Advance Directive Response Recorded Date/ Time Living Will Yes September 03 2:27pm Do you have a Healthcare Power of Tugboat Engineer? Yes September 03, 2022 2:27pm History of Present Illness * Xavier Hampton - 05/31/2020 12:59 PM EDT labs reviewed and with acceptable levels for planned surgery pending cardiology clearance. Patient is cleared to proceed with surgery as scheduled. Xavier Hampton DO PRE-OPERATIVE MEDICAL CONSULTATION BP 128/79 Pulse 67 Temp 36.7 C (98.1 F) Ht 180.3 cm (5' 11) Wt 96.6 kg (213 lb) SpO2 97% BMI 29.71 kg/m Body mass index is 29.71 kg/m . Patient presents with: Pre-Op Exam: cervical spine sx HISTORY: This is a 75 year old male presents to my clinic today for preoperative evaluation. They are scheduled to undergo cervical spine surgery with general anesthesia with Dr. Chaitanya Ha MD on within 30 days at [facility] . Patient reports to be able [...] KNEE SCOPE,DIAGNOSTIC 2003 Arthroscopy, knee KNEE SCOPE,DIAGNOSTIC -2006 Arthroscopy, knee NASAL/SPHENOID SINUS ENDOSCOPY,DX [id number] removal of cyst in sinus PAST SURGICAL HISTORY OF 2010 BCC excision of chest REPAIR ING HERNIA,5+Y/O,REDUCIBL 1987 Hernia repair, inguinal double TOTAL KNEE [...] may be of further assistance Xavier Hampton, documented in this encounter* Xavier Hampton - [...] resp. rate 15, height 180.3 cm (5' 11), weight 91.2 kg (201 lb), SpO2 99 [...] Lymph 1409 850 - 3900 cells/uL Abs Dukes 693 200 - 950 cells/uL Abs Eosin 154 15 - 500 cells/uL Abs Baso 77 0 - 200 cells/uL Neut% 69.7 % Lymph% 18.3 % Dukes% 9.0 % Eosin% 2.0 % Baso% 1.0 [...] CULTURE, URINE, ROUTINE Result Value Ref Range Pipeline Operator CULTURE, URINE, ROUTINE CULTURE, URINE, ROUTINE Micro Number: [id number] Test Status: Final Specimen Source: URINE Specimen Quality: Adequate Result: No Growth Test Performed at: [facility] [address] [id number] TY ADAIR MD Specimen Received Date: 06/11/2020 [...] Purpose Family History No Family History Records Found Relationship Condition Age at Onset Recorded Date/T rogelio Not Specified Cerebrovascular accident (CVA) Unknown sister Arthritis Unknown mother Hypertension Unknown Chief Complaint and Reason for Visit Chief Complaint TANNING SALON ATTENDANT, EST. CARE, PT NE EDS NPP Reason for Visit Essential hypertensi on Hyperlipidemia Encounter to establish care Chief Complaint CHEST PAIN Reason for Visit Unstable angina Chief Complaint CHEST PAIN CHEST PAIN CHEST PAIN CHEST PAIN blood in urine Reason for Visit NSTEMI, initial epis ode of care Essential hypertension Hyperlipidemia Chief Complaint CHEST PAIN CHEST PAIN CHEST PAIN CHEST PAIN blood in urine NonSTEMI, PCI w/coronary stenting PCI with coronary stent Chief Complaint CHEST PAIN CHEST PAIN CHEST PAIN CHEST PAIN blood in urine NonSTEMI, PCI w/coronary stenting PCI with coronary stent s/p [facility] 08-26-22 Asymptomatic microscopic hematuria PCI with coronary stent Reason for Visit Essential hypertensi on Hyperlipidemia Atherosclerosis of coronary artery of [place] heart without angina pectoris Essential hypertension Hyperlipidemia Chief Complaint CHEST PAIN CHEST PAIN CHEST PAIN CHEST PAIN blood in urine NonSTEMI, PCI w/coronary stenting PCI with coronary stent s/p [facility] 08-26-22 Asymptomatic microscopic hematuria PCI with coronary stent E ORDER PCI with coronary stent Reason for Visit Essential hypertensi on Hyperlipidemia Atherosclerosis of coronary artery of [place] heart without angina pectoris Essential hypertension Hyperlipidemia Chief Complaint CHEST PAIN CHEST PAIN CHEST PAIN CHEST PAIN blood in urine NonSTEMI, PCI w/coronary stenting PCI with coronary stent s/p [facility] 08-26-22 Asymptomatic microscopic hematuria PCI with coronary stent E ORDER PCI with coronary stent PCI with coronary stent Reason for Visit Essential hypertensi on Hyperlipidemia Atherosclerosis of coronary artery of [place] heart without angina pectoris Essential hypertension Hyperlipidemia Chief Complaint s/p [facility] 08-26-22 Asymptomatic microscopic hematuria PCI with coronary stent E ORDER PCI with coronary stent PCI with coronary stent PCI with coronary stent Reason for Visit Atherosclerosis of c oronary artery of [place] heart without angina pectoris Essential hypertension Hyperlipidemia Chief Complaint PCI with coronary st ent E ORDER PCI with coronary stent PCI with coronary stent PCI with coronary stent 3 M FU INT LABS Reason for Visit History of coronary artery stent placement Essential hypertension Hyperlipidemia Chief Complaint CERVICALGIA / RX HER E Chief Complaint Admit Date 1 Y FU January 16, 2025 8:03a m Reason for Visit Admit Date History of coronary artery stent placeme nt January 16, 2025 8:03am Essential hypertension January 16, 2025 8: 03am Hyperlipidemia January 16, 2025 8:03a m Chief Complaint Admit Date Episodes of chest pain off and on. L.L. May 16, 2025 11:00am Reason for Visit Admit Date Fatigue May 16, 2025 11:00am History of coronary artery stent placeme nt May 16, 2025 11:00am Midsternal chest pain May 16 25 11:00am SOB (shortness of breath) April 11:00am Essential hypertension May 16, 2 025 11:00am Hyperlipidemia May 16, 2025 11:00am Reason for Referral Specialty Diagnoses / Procedures Referred By Frantz dietz Referred To Contact Dary Croft, PLATEMAN.COMMUNITY ARTIST [address] [place] [address] Referral ID Status Reason Start Date Expiration Date Visits Re quested Visits Authorized [id number] Denied 1 1 Additional Source Comments Source Comments (unrecognize d section and content) In the event this informatio n is protected by the Federal Confidentiality of Alcohol and Drug Abuse Patient Records regulations: The Federal rules restrict any use of the information to criminally investigate or prosecute any alcohol or drug abuse patient.[facility] the event this information is protected by the Federal Confidentiality of Alcohol and Drug Abuse Patient Records regulations: The Federal rules restrict any use of the information to criminally investigate or prosecute any alcohol or drug abuse patient.[facility] the event this information is protected by the Federal Confidentiality of Alcohol and Drug Abuse Patient Records regulations: The Federal rules restrict any use of the information to criminally investigate or prosecute any alcohol or drug abuse patient.[facility] the event this information is protected by the Federal Confidentiality of Alcohol and Drug Abuse Patient Records regulations: The Federal rules restrict any use of the information to criminally investigate or prosecute any alcohol or drug abuse patient.[facility] the event this information is protected by the Federal Confidentiality of Alcohol and Drug Abuse Patient Records regulations: The Federal rules restrict any use of the information to criminally investigate or prosecute any alcohol or drug abuse patient.[facility] the event this information is protected by the Federal Confidentiality of Alcohol and Drug Abuse Patient Records regulations: The Federal rules restrict any use of the information to criminally investigate or prosecute any alcohol or drug abuse patient.[facility] Center[facility] the event this information is protected by the Federal Confidentiality of Alcohol and Drug Abuse Patient Records regulations: The Federal rules restrict any use of the information to criminally investigate or prosecute any alcohol or drug abuse patient.[facility] the event this information is protected by the Federal Confidentiality of Alcohol and Drug Abuse Patient Records regulations: The Federal rules restrict any use of the information to criminally investigate or prosecute any alcohol or drug abuse patient.[facility] the event this information is protected by the Federal Confidentiality of Alcohol and Drug Abuse Patient Records regulations: The Federal rules restrict any use of the information to criminally investigate or prosecute any alcohol or drug abuse patient.[facility] the event this information is protected by the Federal Confidentiality of Alcohol and Drug Abuse Patient Records regulations: The Federal rules restrict any use of the information to criminally investigate or prosecute any alcohol or drug abuse patient.[facility] Center[facility] the event this information is protected by the Federal Confidentiality of Alcohol and Drug Abuse Patient Records regulations: The Federal rules restrict any use of the information to criminally investigate or prosecute any alcohol or drug abuse patient.[facility] CenterIn the event this information is protected by the Federal Confidentiality of Alcohol and Drug Abuse Patient Records regulations: The Federal rules restrict any use of the information to criminally investigate or prosecute any alcohol or drug abuse patient.[facility] CenterIn the event this information is protected by the Federal Confidentiality of Alcohol and Drug Abuse Patient Records regulations: The Federal rules restrict any use of the information to criminally investigate or prosecute any alcohol or drug abuse patient.[facility] CenterIn the event this information is protected by the Federal Confidentiality of Alcohol and Drug Abuse Patient Records regulations: The Federal rules restrict any use of the information to criminally investigate or prosecute any alcohol or drug abuse patient.[facility] CenterIn the event this information is protected by the Federal Confidentiality of Alcohol and Drug Abuse Patient Records regulations: The Federal rules restrict any use of the information to criminally investigate or prosecute any alcohol or drug abuse patient.[facility] CenterIn the event this information is protected by the Federal Confidentiality of Alcohol and Drug Abuse Patient Records regulations: The Federal rules restrict any use of the information to criminally investigate or prosecute any alcohol or drug abuse patient.[facility] CenterIn the event this information is protected by the Federal Confidentiality of Alcohol and Drug Abuse Patient Records regulations: The Federal rules restrict any use of the information to criminally investigate or prosecute any alcohol or drug abuse patient.[facility] CenterIn the event this information is protected by the Federal Confidentiality of Alcohol and Drug Abuse Patient Records regulations: The Federal rules restrict any use of the information to criminally investigate or prosecute any alcohol or drug abuse patient.[facility] CenterIn the event this information is protected by the Federal Confidentiality of Alcohol and Drug Abuse Patient Records regulations: The Federal rules restrict any use of the information to criminally investigate or prosecute any alcohol or drug abuse patient.[facility] CenterIn the event this information is protected by the Federal Confidentiality of Alcohol and Drug Abuse Patient Records regulations: The Federal rules restrict any use of the information to criminally investigate or prosecute any alcohol or drug abuse patient.[facility] CenterIn the event this information is protected by the Federal Confidentiality of Alcohol and Drug Abuse Patient Records regulations: The Federal rules restrict any use of the information to criminally investigate or prosecute any alcohol or drug abuse patient.[facility] CenterIn the event this information is protected by the Federal Confidentiality of Alcohol and Drug Abuse Patient Records regulations: The Federal rules restrict any use of the information to criminally investigate or prosecute any alcohol or drug abuse patient.[facility] CenterIn the event this information is protected by the Federal Confidentiality of Alcohol and Drug Abuse Patient Records regulations: The Federal rules restrict any use of the information to criminally investigate or prosecute any alcohol or drug abuse patient.[facility] CenterIn the event this information is protected by the Federal Confidentiality of Alcohol and Drug Abuse Patient Records regulations: The Federal rules restrict any use of the information to criminally investigate or prosecute any alcohol or drug abuse patient.[facility] CenterIn the event this information is protected by the Federal Confidentiality of Alcohol and Drug Abuse Patient Records regulations: The Federal rules restrict any use of the information to criminally investigate or prosecute any alcohol or drug abuse patient.[facility] CenterIn the event this information is protected by the Federal Confidentiality of Alcohol and Drug Abuse Patient Records regulations: The Federal rules restrict any use of the information to criminally investigate or prosecute any alcohol or drug abuse patient.[facility] CenterIn the event this information is protected by the Federal Confidentiality of Alcohol and Drug Abuse Patient Records regulations: The Federal rules restrict any use of the information to criminally investigate or prosecute any alcohol or drug abuse patient.[facility] CenterIn the event this information is protected by the Federal Confidentiality of Alcohol and Drug Abuse Patient Records regulations: The Federal rules restrict any use of the information to criminally investigate or prosecute any alcohol or drug abuse patient.[facility] CenterIn the event this information is protected by the Federal Confidentiality of Alcohol and Drug Abuse Patient Records regulations: The Federal rules restrict any use of the information to criminally investigate or prosecute any alcohol or drug abuse patient.[facility] CenterIn the event this information is protected by the Federal Confidentiality of Alcohol and Drug Abuse Patient Records regulations: The Federal rules restrict any use of the information to criminally investigate or prosecute any alcohol or drug abuse patient.[facility] CenterIn the event this information is protected by the Federal Confidentiality of Alcohol and Drug Abuse Patient Records regulations: The Federal rules restrict any use of the information to criminally investigate or prosecute any alcohol or drug abuse patient.[facility] CenterIn the event this information is protected by the Federal Confidentiality of Alcohol and Drug Abuse Patient Records regulations: The Federal rules restrict any use of the information to criminally investigate or prosecute any alcohol or drug abuse patient.[facility] CenterIn the event this information is protected by the Federal Confidentiality of Alcohol and Drug Abuse Patient Records regulations: The Federal rules restrict any use of the information to criminally investigate or prosecute any alcohol or drug abuse patient.[facility] CenterIn the event this information is protected by the Federal Confidentiality of Alcohol and Drug Abuse Patient Records regulations: The Federal rules restrict any use of the information to criminally investigate or prosecute any alcohol or drug abuse patient.[facility] CenterIn the event this information is protected by the Federal Confidentiality of Alcohol and Drug Abuse Patient Records regulations: The Federal rules restrict any use of the information to criminally investigate or prosecute any alcohol or drug abuse patient.[facility] CenterIn the event this information is protected by the Federal Confidentiality of Alcohol and Drug Abuse Patient Records regulations: The Federal rules restrict any use of the information to criminally investigate or prosecute any alcohol or drug abuse patient.[facility] CenterIn the event this information is protected by the Federal Confidentiality of Alcohol and Drug Abuse Patient Records regulations: The Federal rules restrict any use of the information to criminally investigate or prosecute any alcohol or drug abuse patient.[facility] CenterIn the event this information is protected by the Federal Confidentiality of Alcohol and Drug Abuse Patient Records regulations: The Federal rules restrict any use of the information to criminally investigate or prosecute any alcohol or drug abuse patient.[facility] CenterIn the event this information is protected by the Federal Confidentiality of Alcohol and Drug Abuse Patient Records regulations: The Federal rules restrict any use of the information to criminally investigate or prosecute any alcohol or drug abuse patient.[facility] CenterIn the event this information is protected by the Federal Confidentiality of Alcohol and Drug Abuse Patient Records regulations: The Federal rules restrict any use of the information to criminally investigate or prosecute any alcohol or drug abuse patient.[facility] CenterIn the event this information is protected by the Federal Confidentiality of Alcohol and Drug Abuse Patient Records regulations: The Federal rules restrict any use of the information to criminally investigate or prosecute any alcohol or drug abuse patient.[facility] CenterIn the event this information is protected by the Federal Confidentiality of Alcohol and Drug Abuse Patient Records regulations: The Federal rules restrict any use of the information to criminally investigate or prosecute any alcohol or drug abuse patient.[facility] CenterIn the event this information is protected by the Federal Confidentiality of Alcohol and Drug Abuse Patient Records regulations: The Federal rules restrict any use of the information to criminally investigate or prosecute any alcohol or drug abuse patient.[facility] CenterIn the event this information is protected by the Federal Confidentiality of Alcohol and Drug Abuse Patient Records regulations: The Federal rules restrict any use of the information to criminally investigate or prosecute any alcohol or drug abuse patient.[facility] CenterIn the event this information is protected by the Federal Confidentiality of Alcohol and Drug Abuse Patient Records regulations: The Federal rules restrict any use of the information to criminally investigate or prosecute any alcohol or drug abuse patient.[facility] CenterIn the event this information is protected by the Federal Confidentiality of Alcohol and Drug Abuse Patient Records regulations: The Federal rules restrict any use of the information to criminally investigate or prosecute any alcohol or drug abuse patient.[facility] CenterIn the event this information is protected by the Federal Confidentiality of Alcohol and Drug Abuse Patient Records regulations: The Federal rules restrict any use of the information to criminally investigate or prosecute any alcohol or drug abuse patient.[facility] CenterIn the event this information is protected by the Federal Confidentiality of Alcohol and Drug Abuse Patient Records regulations: The Federal rules restrict any use of the information to criminally investigate or prosecute any alcohol or drug abuse patient.[facility] Reason for Visit (unrecogniz ed section and content) Reason Comments Pre-Op Exam cervical spine sx Reason Comments Pre-op clearnce Reason Comments Anxiety [...] 3 Month Reason Comments Follow Up Labs Reason Comments Constipation Reason Comments Question Reason Comments Insurance Authorization Reason Comments Orders Reason Onset Date Comments Refill Request 04/13/2024 Reason Comments Consult Reason Comments 02/10/2024 COLON AU Cardiac Clearance Reason Onset Date Comments Population Health Navigation Outreach 07/11/2024 [employer] work[employer] dannielle Reason Comments UTI Dysuria x Reason Comments Recheck Follow up UTI, still having symptoms Reason Comments UTI Dysuria x 3 weeks Reason Comments Results Reason Comments Radiology US Specialty Diagnoses / Procedures Referred By Frantz t Referred To Contact US IMAGING Diagnoses Urinary tract infection without hematuria, site unspecified Procedures US KIDNEY/BLADDER US RETROPERITONEAL REAL TIME W/IMAGE COMPLETE Haroldo Hollis MD [address] [facility] [place] [address] [place] [address] Referral ID Status Reason Start Date Expiration Date V isits Requested Visits Authorized [id number] Closed Auto-Generate d Referral 08/19/2024 09/18/2025 1 1 Reason Onset Date Comments Medicare Wellness Exam Results Immunizations 09/01/2024 Flu vaccination Reason Comments Back Pain RT lower into middle x 4 days Reason Onset Date Comments Allied Health Visit 12/21/2024 Medication A dherence Outreach Reason Comments F/U 6 months Reason Onset Date Comments Allied Health Visit 04/05/2025 Medication A dherence Outreach Result Xavier Harris - 06/13/2020 6:59 AM EDTTelephone Encounter - [...] any additional information. Please call patient to [phone] documented in this encounter Notes received. will review Notes received and placed in 's mailbox for review. Patient called to advise [phone]. He says the CT was ordered by his Orthopedic DrPatricia Ha- [phone]. He was told PCP needs to be notified for authorization purposes. Dr. Ha office will be faxing office notes. documented in this encounter (unrecognized sect ion and content) No Status Records FoundNo Status Records FoundNo Status Records Found INFORMATION SOURCE (unrecogn ized section and content) DATE CREATED AUTHOR 12/06/2021 [facility] DATE CREATED AUTHOR AUTHOR'S ORGANIZ ATION 05/19/2025 [facility] DATE CREATED AUTHOR AUTHOR'S ORGANIZ ATION 06/01/2025 [facility] Care Teams (unrecognized sec tion and content) Retanner Relationship Specialty Start Date End Date Xavier Hampton, DO [address] [facility] [address] [place] [address] PCP - General Family Practice 08/19/19 Retanner Relationship Specialty Start Date End Date Xavier Hampton DO [address] [facility] [address] [place] [address] PCP - General Family Medicine 08/19/19 Retanner Relationship Specialty Start Date End Date Haroldo Hollis MD [address] [place], [place] [id number] PCP - General Internal Medicine 07/28/22 Retanner Relationship Specialty Start Date End Date Haroldo Hollis MD [address] [place], [place] [id number] PCP - General Internal Medicine 07/28/22 Retanner Relationship Specialty Start Date End Date Haroldo Hollis MD [address] [place] [address] PCP - General Internal Medicine 07/28/22 Team Status: Active Member Role Status Dates Dr. Zackary Carlos MD Family Provider Active Haroldo Hollis MD Primary Care Provider Active Team Status: Active Member Role Status Dates Haroldo Hollis MD Primary Care Provider Active Dr. Braxton Castillo MD Emergency Provider Active Dr. Otto Arnett MD Admit Provider, Attending Provider, Other Provider Active Team Status: Active Member Role Status Dates Haroldo Hollis MD Primary Care Provider Active Dr. You Hooper MD Attending Provider Active Team Status: Active Member Role Status Dates Haroldo Hollis MD Primary Care Provider Active Dr. Braxton Castillo MD Emergency Provider Active Dr. Otto Arnett MD Admit Provider, Other Provide r Active Dr. Andrea Eckert MD Other Provider Active Dr. Karley Aceves MD Other Provider Active Dr. You Hooper MD Attending Provider Active Team Status: Active Member Role Status Dates Haroldo Hollis MD Primary Care Provider Active Dr. Braxton Castillo MD Emergency Provider Active Dr. Otto Arnett MD Admit Provider, Other Provide r Active Dr. Andrea Eckert MD Attending Provider, Other Provi belen Active Dr. Karley Aceves MD Other Provider Active Team Status: Inactive Member Role Status Dates Dr. Rolanda Sahu MD Primary Care Provider Active Dr. Cassy Hernandez MD Attending Provider, Referring Pr ovider Active Team Status: Inactive Member Role Status Dates Haroldo Hollis MD Primary Care Provider Active Dr. Braxton Castillo MD Emergency Provider Active Dr. Otto Arnett MD Admit Provider, Other Provide r Active Dr. Andrea Eckert MD Attending Provider Active Dr. Karley Aceves MD Other Provider Active Team Status: Inactive Member Role Status Dates Haroldo Hollis MD Primary Care Provider Active Dr. You Hooper MD Attending Provider Active Team Status: Inactive Member Role Status Dates Haroldo Hollis MD Primary Care Provider Active Dr. Yeyo Christopher DO Attending Provider, Emergency Pr ovider Active Team Status: Active Member Role Status Dates Haroldo Hollis MD Primary Care Provider Active Dr. You Hooper MD Attending Provider, Referring Pro vider Active Team Status: Inactive Member Role Status Dates Haroldo Hollis MD Primary Care Provider Active Dr. You Hooper MD Attending Provider, Referring Pro vider Active Retanner Relationship Specialty Start Date End Date Haroldo Hollis MD [address] [place] [address] PCP - General Internal Medicine 07/28/22 Team Status: Inactive Member Role Status Dates Haroldo Hollis MD Primary Care Provider, Referring Provider Active Ej Montano TANNING SALON ATTENDANT, TANNING SALON ATTENDANT-C Attending Provider Active Team Status: Inactive Member Role Status Dates Haroldo Hollis MD Primary Care Provider Active Dr. Deion Dunn MD Attending Provider, Referr ing Provider Active Retanner Relationship Specialty Start Date End Date Haroldo Hollis MD [address] [place] [address] PCP - General Internal Medicine 07/28/22 Retanner Relationship Specialty Start Date End Date Haroldo Hollis MD [address] [place] [address] PCP - General Internal Medicine 07/28/22 Retanner Relationship Specialty Start Date End Date Haroldo Hollis MD [address] [place] [address] PCP - General Internal Medicine 07/28/22 Team Status: Active Member Role Status Dates Dr. Zackary Carlos MD Family Provider Active Haroldo ARGUELLO MD Primary Care Provider Active Team Status: Active Member Role Status Dates Haroldo ARGUELLO MD Primary Care Provider Active Dr. Braxton Castillo MD Emergency Provider Active Dr. Otto Arnett MD Admit Provider, Attending Provider, Other Provider Active Team Status: Active Member Role Status Dates Haroldo ARGUELLO MD Primary Care Provider Active Dr. You Hooper MD Attending Provider Active Team Status: Active Member Role Status Dates Haroldo ARGUELLO MD Primary Care Provider Active Dr. Braxton Castillo MD Emergency Provider Active Dr. Otto Arnett MD Admit Provider, Other Provide r Active Dr. Andrea Eckert MD Other Provider Active Dr. Karley Aceves MD Other Provider Active Dr. You Hooper MD Attending Provider Active Team Status: Active Member Role Status Dates Haroldo ARGUELLO MD Primary Care Provider Active Dr. Braxton Castillo MD Emergency Provider Active Dr. Otto Arnett MD Admit Provider, Other Provide r Active Dr. Andrea Eckert MD Attending Provider, Other Provi belen Active Dr. Karley Aceves MD Other Provider Active Team Status: Inactive Member Role Status Dates Haroldo ARGUELLO MD Primary Care Provider, Referr ing Provider Active Ej Montano TANNING SALON ATTENDANT, TANNING SALON ATTENDANT-C Attending Provider Active Team Status: Inactive Member Role Status Dates Haroldo ARGUELLO MD Primary Care Provider Active Dr. Braxton Castillo MD Emergency Provider Active Dr. Otto Arnett MD Admit Provider, Other Provide r Active Dr. Andrea Eckert MD Attending Provider Active Dr. Karley Aceves MD Other Provider Active Team Status: Inactive Member Role Status Dates Haroldo ARGUELLO MD Primary Care Provider Active Dr. You Hooper MD Attending Provider Active Team Status: Inactive Member Role Status Dates Haroldo ARGUELLO MD Primary Care Provider Active Dr. Yeyo Christopher DO Attending Provider, Emergency Pr ovider Active Team Status: Inactive Member Role Status Dates Haroldo ARGUELLO MD Primary Care Provider Active Dr. You Hooper MD Attending Provider, Referring Pro vider Active Team Status: Inactive Member Role Status Dates Haroldo ARGUELLO MD Primary Care Provider Active Dr. Deion Dunn MD Attending Provider, Referr ing Provider Active Team Status: Inactive Member Role Status Dates Haroldo ARGUELLO MD Primary Care Provider, Referr ing Provider Active Dr. You Hooper MD Attending Provider Active Retanner Relationship Specialty Start Date End Date Haroldo Hollis MD [address] [place] [address] PCP - General Internal Medicine 07/28/22 Retanner Relationship Specialty Start Date End Date Haroldo Hollis MD [address] [place] [address] PCP - General Internal Medicine 07/28/22 Team Status: Active Member Role Status Dates Dr. Zackary Carlos MD Family Provider Active Dr. Haroldo Hollis MD Primary Care Provider Active Team Status: Inactive Member Role Status Dates Dary Dow TANNING SALON ATTENDANT, TANNING SALON ATTENDANT-C Attending Provider Active Dr. Haroldo Hollis MD Primary Care Provider Active Team Status: Inactive Member Role Status Dates Dary Croft TANNING SALON ATTENDANT, TANNING SALON ATTENDANT-C Attending Provider Active Dr. Haroldo Hollis MD Primary Care Provider Active Team Status: Inactive Member Role Status Dates Dr. Haroldo Hollis MD Primary Care Provider Active Dr. Deion Dunn MD Attending Provider, Referr ing Provider Active Retanner Relationship Specialty Start Date End Date Haroldo Hollis MD [address] [place] [address] PCP - General Internal Medicine 07/28/22 Retanner Relationship Specialty Start Date End Date Haroldo Hollis MD [address] [place] [address] PCP - General Internal Medicine 07/28/22 Retanner Relationship Specialty Start Date End Date Haroldo Hollis MD [address] [place] [address] PCP - General Internal Medicine 07/28/22 Retanner Relationship Specialty Start Date End Date Haroldo Hollis MD [address] [place] [address] PCP - General Internal Medicine 07/28/22 Retanner Relationship Specialty Start Date End Date Haroldo Hollis MD [address] [place] [address] PCP - General Internal Medicine 07/28/22 Retanner Relationship Specialty Start Date End Date Haroldo Hollis MD [address] [place] [address] PCP - General Internal Medicine 07/28/22 Retanner Relationship Specialty Start Date End Date Haroldo Hollis MD [address] [place] [address] PCP - General Internal Medicine 07/28/22 Retanner Relationship Specialty Start Date End Date Haroldo Hollis MD [address] [place] [address] PCP - General Internal Medicine 07/28/22 Dary Croft, PLATEMAN.COMMUNITY ARTIST [address] [place] [address] Lead Instructor/Flight Attendant Internal Medicine 07/25/24 Retanner Relationship Specialty Start Date End Date Haroldo Hollis MD [address] [place] [address] PCP - General Internal Medicine 07/28/22 Dary Croft, PLATEMAN.COMMUNITY ARTIST [address] [place] [address] Lead Instructor/Flight Attendant Internal Medicine 07/25/24 Retanner Relationship Specialty Start Date End Date Haroldo Hollis MD [address] [place] [address] PCP - General Internal Medicine 07/28/22 Dary Croft, PLATEMAN.COMMUNITY ARTIST [address] [place] [address] Lead Instructor/Flight Attendant Internal Medicine 07/25/24 Retanner Relationship Specialty Start Date End Date Haroldo Hollis MD [address] [place] [address] PCP - General Internal Medicine 07/28/22 Dary Croft, PLATEMAN.COMMUNITY ARTIST [address] [place] [address] Lead Instructor/Flight Attendant Internal Medicine 07/25/24 Retanner Relationship Specialty Start Date End Date Haroldo Hollis MD [address] [place] [address] PCP - General Internal Medicine 07/28/22 Dary Croft, PLATEMAN.COMMUNITY ARTIST [address] [place] [address] Lead Instructor/Flight Attendant Internal Medicine 07/25/24 Retanner Relationship Specialty Start Date End Date Haroldo Hollis MD [address] [place] [address] PCP - General Internal Medicine 07/28/22 Dary Croft, PLATEMAN.COMMUNITY ARTIST [address] [place] [address] Lead Instructor/Flight Attendant Internal Medicine 07/25/24 Retanner Relationship Specialty Start Date End Date Haroldo Hollis MD [address] [place] [address] PCP - General Internal Medicine 07/28/22 Dary Croft, PLATEMAN.COMMUNITY ARTIST [address] [place] [address] Lead Instructor/Flight Attendant Internal Medicine 07/25/24 Retanner Relationship Specialty Start Date End Date Haroldo Hollis MD [address] [facility], [place] [address] PCP - General Internal Medicine 07/28/22 Dary Croft, PLATEMAN.COMMUNITY ARTIST [address] [place] [address] [facility] Internal Medicine 07/25/24 Retanner Relationship Specialty Start Date End Date Haroldo Hollis MD [address] [place] [address] PCP - General Internal Medicine 07/28/22 Dary Croft, PLATEMAN.COMMUNITY ARTIST [address] [place], [place] [id number] [facility] Internal Medicine 07/25/24 Team Status: Active Member Role Status Dates Dr. Haroldo Hollis MD Primary Care Provider Active Team Status: Inactive Member Role Status Dates Dr. Haroldo Hollis MD Primary Care Provider Active Start: January 16, 2025 End: January 16, 2025 Dr. Haroldo Hollis MD Referring Provider Active Start: January 16, 2025 End: January 16, 2025 Ej Montano TANNING SALON ATTENDANT, TANNING SALON ATTENDANT-C Attending Provider Active S tart: January 16, 2025 End: January 16, 2025 Retanner Relationship Specialty Start Date End Date Haroldo Hollis MD [address] [place], [place] [id number] PCP - General Internal Medicine 07/28/22 Dary Croft, PLATEMAN.COMMUNITY ARTIST [address] [place] [address] Lead Instructor/Flight Attendant Internal Medicine 07/25/24 Retanner Relationship Specialty Start Date End Date Haroldo Hollis MD [address] [place] [address] PCP - General Internal Medicine 07/28/22 Dary Croft, PLATEMAN.COMMUNITY ARTIST [address] [place] [address] [facility] Internal Medicine 07/25/24 Retanner Relationship Specialty Start Date End Date Haroldo Hollis MD [address] [facility], [place] [id number] PCP - General Internal Medicine 07/28/22 Dary Croft, PLATEMAN.COMMUNITY ARTIST [address] [facility], [place] [id number] Lead Instructor/Flight Attendant Internal Medicine 07/25/24 Team Status: Active Member Role/Relationship Status Dates Dr. Haroldo Hollis MD Primary care physician Activ e Team Status: Inactive Member Role/Relationship Status Dates Dr. Haroldo Hollis MD Primary care physician Activ e Start: May 16, 2025 End: May 16, 2025 Dr. Haroldo Hollis MD Referring Provider Active Start: May 16, 2025 End: May 16, 2025 Jonna Mcintyre NP, TANNING [employer] ATTENDANT-C Attending physician Active Start: May 16, 2025 End: May 16, 2025 Team Status: Active Member Role/Relationship Status Dates Dr. Haroldo Hollis MD Primary care physician Activ e Start: May 16, 2025 Jonna Mcintyre NP, TANNING [employer] ATTENDANT-C Attending physician Active Start: May 16, 2025 Jonna Mcintyre NP, TANNING [employer]ON ATTENDANT-C Referring Provider Active Start: May 16, 2025 Goals (unrecognized section and content) Goals may be documented in a n alternate sectionGoals may be documented in an alternate sectionGoals may be documented in an alternate sectionGoals may be documented in an alternate sectionGoals may be documented in an alternate sectionGoals may be documented in an alternate sectionGoals may be documented in an alternate sectionGoals may be documented in an alternate sectionGoals may be documented in an alternate sectionGoals may be documented in an alternate sectionGoals may be documented in an alternate sectionGoals may be documented in an alternate sectionGoals may be documented in an alternate sectionGoals may be documented in an alternate sectionGoals may be documented in an alternate sectionGoals may be documented in an alternate sectionGoals may be documented in an alternate section FOR RECORDS PERTAINING TO PATIENTS WHO ARE [...] BE BASED ON THE PRIMARY CLINICAL RECORDS. [employer] [facility]. provides no warranty or guarantee of the accuracy or completeness of information in this document.
--- OUTSIDE RECORDS SUMMARY | 2025-06-02 06:06 | XMS RPT_ITS | CCD ---
Author Organization [facility] Care Team Providers Care Health Lead Name Role Phone Xavier Hampton Primary Care Provider Dr. Zackary Carlos Chi Primary Care Provider Dr. Zackary Carlos Chi Referring Provider Dr. Rolanda Sahu Attending Provider Xavier Hampton DO Primary Care Provider Haroldo Hollis MD Primary Care Provider [phone] MD Haroldo Hollis Primary Care Provider [facility]. Braxton Alford Emergency Provider Dr. Otto Arnett Admit Provider Dr. Otto Arnett Attending Provider Dr. Otto Arnett Other Provider Dr. You Hooper Attending Provider Dr. Andrea Eckert Other Provider Dr. Karley Aceves Other Provider Dr. Andrea Eckert Attending Provider MD Haroldo Hollis Referring Provider Venkatesh carlos Montano PUBLIC TRANSIT TROLLEY DRIVER, PUBLIC TRANSIT TROLLEY DRIVER-C Ej Johnson Attending Provider MD Haroldo Sanchez Primary Care Provider U Dr. Braxton Hoffmann Emergency Provider Dr. Otto Arnettit Provider [phone] Otto Arnett Attending Provider Dr. Otto Arnett Other Provider Dr. You Hooper Attending Provider Dr. Andrea Eckert Other Provider Dr. Karley Aceves Other Provider Dr. Andrea Eckert Attending Provider MD Haroldo Sanchez Referring Provider Jaskaran Montano PUBLIC TRANSIT TROLLEY DRIVER, PUBLIC TRANSIT TROLLEY DRIVER-C Ej Johnson Attending Provider MD Haroldo Sanchez Primary Care Provider U MD Haroldo Vigil Primary Care Provider U MD Haroldo Vigil Referring Provider Dr. You Chamorro Attending Provider Haroldo Hollis MD Primary Care Provider Jovanny EXECUTIVE CHAIRMAN OF THE BOARD.CORE MACHINE TENDER, Dary M Unavailable Dr. Haroldo Hollis MD Primary Care Provider Dr. Haroldo Hollis MD Referring Provider [facility] PUBLIC TRANSIT TROLLEY DRIVER-C, Ej Johnson Attending Provider DARY CROFT Referring [...] / HYDROcodone Drug Allergy 9 Rash, Itching [facility] Work Phone: Acetaminophen / oxyCODONE (1 source) Acetaminophen / oxyCODONE Drug Allergy 2 Intolerance [facility] Opioid Agonists (1 source) Codeine Drug Allergy 5 [facility] (20 sources) Acetaminophen / HYDROcodone; Translations: [HYDROCODONE-ACETA MINOPHEN] Drug Allergy 9 Rash, Itching [facility] (20 sources) Acetaminophen / oxyCODONE; Translations: [OXYCODONE-ACETAMI NOPHEN] Drug Allergy 2 Intolerance [facility] (20 sources) Codeine; Translations: [CODEINE] Drug Allergy 5 Rash [facility] (12 sources) Acetaminophen Drug Allergy 2 unknown [facility] (17 sources) oxyCODONE Drug Allergy 2 unknown [facility] (1 source) Codeine Drug Allergy 5 [facility] Repository (1 source) oxyCODONE Drug Allergy 5 [facility] Repository Medications Current Medications Medication Drug Class(es) [...] on above: Take 1 capsule by mo [facility] once daily. Take 200 mg by [...] on above: Take 1 capsule by mo [facility] two times a day. doxazosin 2 [...] above: Take by mouth. polyethylene glycol 3350 [id number] mg powder for oral solution (17 sources) [...] coronary artery; Translations: [Atherosclerotic heart disease of [place] coronary artery without angina pectoris] Onset: 12-16-19 [...] Auto (Unsp spec) [#/Vol] 1.64 10*3/uL 0.83-4.51 [facility] Absolute neutrophil countOrd ered By: Jonna Mcintyre on 05-16-2025 Neutrophils (Bld) [#/Vol] 4.3 10*3/uL 2.0-7.7 [facility] Anion gap in Serum or Plasma Ordered By: Jonna Mcintyre on 05-16-2025 Anion gap [Moles/Vol] 11 mmol/L 12-29 [facility] Automated lymphocyte count a s percentage of total leukocytesOrdered By: Jonna Mcintyre on 05-16-2025 Lymphocytes/100 WBC Auto (Unsp spec) 22.3 % [facility] BUN/creatinine ratioOrdered By: Jonna Mcintyre on 05-16-2025 Urea nitrogen/Creatinine [Mass ratio] 18.4 mg/mg - [facility] Basic Metabolic Profile (BMP )on 05-16-2025 BUN/CRE 18.4 RATIO Normal 06-05 [facility] Comment on above: Performed By: #### L 501.0860, L100.0100, L503.1505, L500.2500 #### [facility] [address] [place] [address]. [place], [address] Calcium [Mass/Vol] 8.6 mg/dL Normal 7.6-11.0 [facility] Comment on above: Performed By: #### L 501.9520, L100.0100, L503.7505, L500.2500 #### [facility] [address] [place], [address] Chloride [Moles/Vol] 106 mmol/L Normal 98-108 [facility] Comment on above: Performed By: #### L 501.9520, L100.0100, L503.7505, L500.2500 #### [facility] [address] [place], [address] CO2 [Moles/Vol] 21.2 mmol/L Normal 21.0-32.0 [facility] Comment on above: Performed By: #### L 501.9520, L100.0100, L503.7505, L500.2500 #### [facility] [address] [place], [address] Creatinine [Mass/Vol] 1.08 mg/dL Normal 0.70-1.20 [facility] Comment on above: Performed By: #### L 501.9520, L100.0100, L503.7505, L500.2500 #### [facility] [address] [place], [address] GAP 11 Normal 5-15 [facility] Comment on above: Performed By: #### L 501.9520, L100.0100, L503.7505, L500.2500 #### [facility] [address] [place], [address] GFR/1.73 sq M.predicted among non-blacks MDRD (S/P/Bld) [Vol rate/Area] 70 mL/min/{1.73_m2} Normal >60 [facility] Comment on above: Result Comment: mL/m in/1.73m2 CKD-EPI Creatinine Equation (2020) Performed By: #### L 501.9520, L100.0100, L503.7505, L500.2500 #### [facility] [address] [place], [address] Glucose [Mass/Vol] 103 mg/dL High 70-99 [facility] Comment on above: Performed By: #### L 501.9520, L100.0100, L503.7505, L500.2500 #### [facility] [address] [place], [address] Potassium [Moles/Vol] 4.2 mmol/L Normal 3.3-5.1 [facility] Comment on above: Result Comment: Hemo lysis present, Results??could be affected. ?? Performed By: #### L 501.9520, L100.0100, L503.7505, L500.2500 #### [facility] [address] [place], [address] Sodium [Moles/Vol] 139 mmol/L Normal 133-145 [facility] Comment on above: Performed By: #### L 501.9520, L100.0100, L503.7505, L500.2500 #### [facility] [address] [place], [address] Urea nitrogen [Mass/Vol] 20 mg/dL High 4-19 [facility] Comment on above: Performed By: #### L 501.9520, L100.0100, L503.7505, L500.2500 #### [facility] [address] [place], [address] Basophil percentageOrdered B y: Jonna Mcintyre on 05-16-2025 Basophils/100 WBC (Bld) 1.0 % 0-1 [facility] CBC W/Diff, Automatedon 04-19 Absolute Lymph 1.64 X10 3/uL Normal 0.83-4.51 [facility] Comment on above: Performed By: #### L 501.9520, L100.0100, L503.7505, L500.2500 #### [facility] [address] [place], [address] Absolute Neut 4.3 X10 3/uL Normal 2.0-7.7 [facility] Comment on above: Performed By: #### L 501.9520, L100.0100, L503.7505, L500.2500 #### [facility] [address] [place], [address] Basophils/100 WBC (Bld) 1.0 % Normal 0-1 [facility] Comment on above: Performed By: #### L 501.9520, L100.0100, L503.7505, L500.2500 #### [facility] [address] [place], [address] Eosinophils/100 WBC (Bld) 5.2 % High 0-5 [facility] Comment on above: Performed By: #### L 501.9520, L100.0100, L503.7505, L500.2500 #### [facility] [address] [place], [address] Erythrocyte distribution width (RBC) [Ratio] 13.1 % Normal 11.6-14.6 [facility] Comment on above: Performed By: #### L 501.9520, L100.0100, L503.7505, L500.2500 #### [facility] [address] [place], [address] Hematocrit (Bld) [Volume fraction] 41.4 % Normal 40-54 [facility] Comment on above: Performed By: #### L 501.9520, L100.0100, L503.7505, L500.2500 #### [facility] [address] [place], [address] Hemoglobin (Bld) [Mass/Vol] 13.5 g/dL Normal 13.0-16.5 [facility] Comment on above: Performed By: #### L 501.9520, L100.0100, L503.7505, L500.2500 #### [facility] [address] [place], [address] IG% 0.700 Normal 0.0-0.9 [facility] Comment on above: Result Comment: IG% - Immature Granulocytes (promyelocytes, myelocytes and metamyelocytes) > 1% indicates that a LEFT SHIFT is Present. Performed By: #### L 501.9520, L100.0100, L503.7505, L500.2500 #### [facility] [address] [place], [address] Lymphocytes/100 WBC (Bld) 22.3 % Normal 19-41 [facility] Comment on above: Performed By: #### L 501.9520, L100.0100, L503.7505, L500.2500 #### [facility] [address] [place], [address] MCH (RBC) [Entitic mass] 30.3 pg Normal 27.0-32.0 [facility] Comment on above: Performed By: #### L 501.9520, L100.0100, L503.7505, L500.2500 #### [facility] [address] [place], [address] MCHC (RBC) [Mass/Vol] 32.6 g/dL Normal 32-36 [facility] Comment on above: Performed By: #### L 501.9520, L100.0100, L503.7505, L500.2500 #### [facility] [address] [place], [address] MCV (RBC) [Entitic vol] 92.8 fL Normal 80-94 [facility] Comment on above: Performed By: #### L 501.9520, L100.0100, L503.7505, L500.2500 #### [facility] [address] [place], [address] Monocytes/100 WBC (Bld) 13.0 % High 0-10 [facility] Comment on above: Performed By: #### L 501.9520, L100.0100, L503.7505, L500.2500 #### [facility] [address] [place], [address] Neutrophils/100 WBC (Bld) 57.8 % Normal 47-70 [facility] Comment on above: Performed By: #### L 501.9520, L100.0100, L503.7505, L500.2500 #### [facility] [address] [place], [address] Nucleated RBC (Bld) [#/Vol] 0 10*3/uL Normal 0-5 [facility] Comment on above: Performed By: #### L 501.9520, L100.0100, L503.7505, L500.2500 #### [facility] [address] [place], [address] Platelet mean volume (Bld) [Entitic vol] 9.5 fL Normal 6.2-12.0 [facility] Comment on above: Performed By: #### L 501.9520, L100.0100, L503.7505, L500.2500 #### [facility] [address] [place], [address] Platelets (Bld) [#/Vol] 248 10*3/uL Normal 150-450 [facility] Comment on above: Performed By: #### L 501.9520, L100.0100, L503.7505, L500.2500 #### [facility] [address] [place], [address] RBC (Bld) [#/Vol] 4.46 10*6/uL Low 4.6-6.2 [facility] Comment on above: Performed By: #### L 501.9520, L100.0100, L503.7505, L500.2500 #### [facility] [address] [place], [address] RDW SD 44.2 fl High 35.1-43.9 [facility] Comment on above: Performed By: #### L 501.9520, L100.0100, L503.7505, L500.2500 #### [facility] [address] [place], [address] WBC (Bld) [#/Vol] 7.4 10*3/uL Normal 4.4-11.0 [facility] Comment on above: Performed By: #### L 501.9520, L100.0100, L503.7505, L500.2500 #### [facility] [address] [place], [address] Carbon dioxide, total [Moles /volume] in Central venous bloodOrdered By: Jonna Mcintyre on 05-16-2025 CO2 [Moles/Vol] 21.2 mmol/L 21.0-32.0 [facility] Cardiology Visit Reporton Cardiology Visit Report [facility] [address] [place] [address] OFFICE VISIT Date of Service: 05/16/25 MR#: [id number] Acct: [id number] Name: LUÍS HERNANDEZ Rep #: [id number] : 1945 Provider: FATMATA solitario Age/Sex: 80/M Location: [facility] Status: Signed HPI HPI History of Present Illness Details: This is a 80-year-old male who presents to the office today for a cardiovascular follow-up. He was evaluated at [facility] in August 2022 for non-ST elevated myocardial [...] of chest pain off and on. L.L. 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 NSTEMI, initial episode of care Neuropathy Lightheadedness Uncontrolled hypertension Coronary artery calcification seen on CAT scan (12/2016) Insomnia Anxiety Osteoarthritis Hyperlipidemia Obesity Restless legs syndrome (RLS) Obstructive sleep apnea Cervical stenosis of spine BPH (benign prostatic hyperplasia) Essential hypertension Surgical History (Reviewed 05/16/25 @ 13:03 by Jonna Mcintyre PUBLIC TRANSIT TROLLEY DRIVER, PUBLIC TRANSIT TROLLEY DRIVER-C) Hx of colonoscopy History of cardiac catheterization History of coronary artery stent placement ( 08/25/22) History of carpal tunnel surgery History of thyroid surgery Trigger finger History of knee replacement History of herniorrhaphy H/O cervical spine surgery (02/2020) History of transurethral resection of prostate (09/2019) Family History (Reviewed 05/16/25 @ 13:03 by Jonna Mcintyre PUBLIC TRANSIT TROLLEY DRIVER, PUBLIC TRANSIT TROLLEY DRIVER-C) Sister Arthritis Mother Hypertension Other CVA (cerebral vascular accident) Social History (Reviewed 05/16/25 @ 13:03 by Jonna Mcintyre PUBLIC TRANSIT TROLLEY DRIVER, PUBLIC TRANSIT TROLLEY DRIVER-C) Smoking Status: Former smoker quit date: 08/17/97 how long ago did patient quit smokin years ago alcohol intake: current alcohol intake frequency: a few times a week sub (more content not included)... Normal [facility] Chloride assayOrdered By: Yannick Mcintyre on 05-16-2025 Chloride [Moles/Vol] 106 mmol/L 98-108 [facility] Eosinophil percentageOrdered By: Jonna Mcintyre on 05-16-2025 Eosinophils/100 WBC (Bld) 5.2 % High 0-5 [facility] Erythrocyte distribution wid th ratioOrdered By: Jonna Mcintyre on 05-16-2025 Erythrocyte distribution width (RBC) [Ratio] 13.1 % 11.6-14.6 [facility] Erythrocyte distribution wid th standard deviationOrdered By: Jonna Mcintyre on 05-16-2025 Erythrocyte distribution width (RBC) [Ratio] 44.2 fl High 35.1-43.9 [facility] Glomerular filtration rate ( GFR) estimation/1.73 sq m using serum, plasma, or whole bOrdered By: Jonna Mcintyre on 05-16-2025 GFR/1.73 sq M.predicted among non-blacks MDRD (S/P/Bld) [Vol rate/Area] 70 mL/min/{1.73_m2} >60 [facility] Comment on above: mL/min/1.73m2 CKD-EP I Creatinine Equation (2020) Hematocrit Auto (Bld) [Volum e fraction]Ordered By: Jonna Mcintyre on 05-16-2025 Hematocrit (Bld) [Volume fraction] 41.4 % 40-54 [facility] Hemoglobin measurementOrdere d By: Jonna Mcintyre on 05-16-2025 Hemoglobin (Bld) [Mass/Vol] 13.5 g/dL 13.0-16.5 [facility] Immature granulocytes/100 WB C Auto (Bld)Ordered By: Jonna Mcintyre on 05-16-2025 Immature granulocytes/100 WBC (Bld) 0.700 % 0.0-0.9 [facility] Comment on above: IG% - Immature Granu locytes (promyelocytes, myelocytes and metamyelocytes) > 1% indicates that a LEFT SHIFT is Present. MCV (mean corpuscular volume ) determinationOrdered By: Jonna Mcintyre on 05-16-2025 MCV (RBC) [Entitic vol] 92.8 fL 80-94 [facility] Mean corpuscular hemoglobin (MCH) determinationOrdered By: Jonna Mcintyre on 05-16-2025 MCH (RBC) [Entitic mass] 30.3 pg 27.0-32.0 [facility] Mean corpuscular hemoglobin concentration (MCHC) determinationOrdered By: Jonna Mcintyre on 05-16-2025 MCHC (RBC) [Mass/Vol] 32.6 g/dL 32-36 [facility] Mean platelet volume determi nationOrdered By: Jonna Mcintyre on 05-16-2025 Platelet mean volume (Bld) [Entitic vol] 9.5 fL 6.2-12.0 [facility] Monocyte percentageOrdered B y: Jonna Mcintyre on 05-16-2025 Monocytes/100 WBC (Bld) 13.0 % High 0-10 [facility] Natriuretic peptide.B prohor dawson N-Terminal [Mass/volume] in Serum or PlasmaOrdered By: Jonna Mcintyre on 05-16-2025 Natriuretic peptide.B prohormone N-Terminal [Mass/Vol] 95 pg/mL <1800 [facility] Comment on above: Heart Failure Unlike ly: < 300 pg/mLHeart Failure Likely< 50 Years: > 450 pg/mL50-75 Years: > 900 pg/mL>75 Years: > 1800 pg/mL Neutrophil percentageOrdered By: Jonna Mcintyre on 05-16-2025 Neutrophils/100 WBC (Bld) 57.8 % 47-70 [facility] Nucleated red blood cell per centageOrdered By: Jonna Mcintyre on 05-16-2025 Nucleated RBC/100 WBC (Bld) [Ratio] 0 % 0-5 [facility] Platelet countOrdered By: Yannick Mcintyre on 05-16-2025 Platelets (Bld) [#/Vol] 248 10*3/uL 150-450 [facility] Potassium measurement (mass/ volume)Ordered By: Jonna Mcintyre on 05-16-2025 Potassium (Unsp spec) [Mass/Vol] 4.2 mmol/L 3.3-5.1 [facility] Comment on above: Hemolysis present, R esults could be affected. Pro- Brain NATRIURETIC PEPTI William 05-16-2025 Natriuretic peptide B (Bld) [Mass/Vol] 95 pg/mL Normal <=1800 [facility] Comment on above: Result Comment: Hear t Failure Unlikely: < 300 pg/mL Heart Failure Likely < 50 Years: > 450 pg/mL 50-75 Years: > 900 pg/mL >75 Years: > 1800 pg/mL Performed By: #### L 501.6398, L100.0100, L503.7505, L500.2500 #### [facility] [address] [place], [address] RBC Auto (Bld) [#/Vol]Ordere d By: Jonna Mcintyre on 05-16-2025 RBC (Bld) [#/Vol] 4.46 10*6/uL Low 4.6-6.2 [facility] Serum creatinine measurement (mass/volume)Ordered By: Jonna Mcintyre on 05-16-2025 Creatinine [Mass/Vol] 1.08 mg/dL 0.70-1.20 [facility] Serum glucose measurement (m ass/volume)Ordered By: Jonna Mcintyre on 05-16-2025 Glucose [Mass/Vol] 103 mg/dL High 70-99 [facility] Serum or plasma calcium richie urement (mass/volume)Ordered By: Jonna Mcintyre on 05-16-2025 Calcium [Mass/Vol] 8.6 mg/dL 7.6-11.0 [facility] Serum or plasma urea nitroge n measurement (mass/volume)Ordered By: Jonna Mcintyre on 05-16-2025 Urea nitrogen [Mass/Vol] 20 mg/dL High 4-19 [facility] Sodium levelOrdered By: Elidia Mcintyre on 05-16-2025 Sodium [Moles/Vol] 139 mmol/L 133-145 [facility] TSH DL <= 0.005 mIU/L QnOrde red By: Jonna Mcintyre on 05-16-2025 TSH Qn 2.950 uIU/mL 0.300-4.200 [facility] Thyroid Stim Hormone (TSH)on 05-16-2025 TSH 2.950 uIU/mL Normal 0.300-4.200 [facility] Comment on above: Performed By: #### L 501.9520, L100.0100, L503.7505, L500.2500 #### [facility] [address] [place], [address] White blood cell (WBC) count Ordered By: Jonna Mcintyre on 05-16-2025 WBC (Bld) [#/Vol] 7.4 10*3/uL 4.4-11.0 [facility] 25(OH)D3 SerPl-mCncon 2024 25-hydroxyvitamin D3 [Mass/Vol] 33.8 ng/mL Normal 31.0-80.0 [facility] Comment on above: Order Comment: Speci men Type: BLOOD SPECIMENOrdering Facility: [facility] Address: [address] [place] [address] Performed By: #### 1 989-3 ####[facility] LABIA [id number] [place] [address] [place] CBC panel Auto (Bld)on 03-20 Erythrocyte distribution width (RBC) [Ratio] 13.4 % Normal 11.5-15.0 [facility] Comment on above: Order Comment: Speci men Type: BLOOD SPECIMENOrdering Facility: [facility] Address: [address] [place] [address] Performed By: #### 5 8410-2 ####[facility] [id number] [place] [address] [place] Hematocrit (Bld) [Volume fraction] 43.0 % Normal 39.0-51.0 [facility] Comment on above: Order Comment: Speci men Type: BLOOD SPECIMENOrdering Facility: [facility] Address: [address] [place] [address] Performed By: #### 5 8410-2 ####[facility] LABIA [id number] [address] [place] Hemoglobin (Bld) [Mass/Vol] 14.0 g/dL Normal 13.0-17.0 [facility] Comment on above: Order Comment: Speci men Type: BLOOD SPECIMENOrdering Facility: [facility] Address: [address] [place] [address] Performed By: #### 5 8410-2 ####[facility] LABIA [id number] [place] [id number] [place] MCH (RBC) [Entitic mass] 30.4 pg Normal 26.0-34.0 [facility] Comment on above: Order Comment: Speci men Type: BLOOD SPECIMENOrdering Facility: [facility] Address: [address] [place] [address] Performed By: #### 5 8410-2 ####[facility] LABCLIA [id number] [place] [address] [place] MCHC (RBC) [Mass/Vol] 32.6 g/dL Normal 30.5-36.0 [facility] Comment on above: Order Comment: Speci men Type: BLOOD SPECIMENOrdering Facility: [facility] Address: [address] [place] [address] Performed By: #### 5 8410-2 ####[facility] LABIA [id number] [place] [address] [place] MCV (RBC) [Entitic vol] 93.3 fL Normal 80.0-100.0 [facility] Comment on above: Order Comment: Speci men Type: BLOOD SPECIMENOrdering Facility: [facility] Address: [address] [place] [address] Performed By: #### 5 8410-2 ####[facility] LABIA [id number] [place] [address] [place] Nucleated RBC (Bld) [#/Vol] 10*3/uL Normal <0.01 [facility] Comment on above: Order Comment: Speci men Type: BLOOD SPECIMENOrdering Facility: [facility] Address: [address] [place] [address] Performed By: #### 5 8410-2 ####[facility] LABCLIA [id number] [place] [address] [place] Platelet mean volume (Bld) [Entitic vol] 9.6 fL Normal 9.0-12.7 [facility] Comment on above: Order Comment: Speci men Type: BLOOD SPECIMENOrdering Facility: [facility] Address: [address] [place] [address] Performed By: #### 5 8410-2 ####[facility] LABCLIA [id number] [address] [place] [address] [place] Platelets (Bld) [#/Vol] 266 10*3/uL Normal 150-400 [facility] Comment on above: Order Comment: Speci men Type: BLOOD SPECIMENOrdering Facility: [facility] Address: [address] [place] [address] Performed By: #### 5 8410-2 ####[facility] LABCLIA [id number] [address] [place] [address] [place] RBC (Bld) [#/Vol] 4.61 10*6/uL Normal 4.20-6.00 [facility] Comment on above: Order Comment: Speci men Type: BLOOD SPECIMENOrdering Facility: [facility] Address: [address] [place] [address] Performed By: #### 5 8410-2 ####[facility] LABIA [id number] [address], [facility] [place] WBC (Bld) [#/Vol] 7.31 10*3/uL Normal 3.70-11.00 [facility] Comment on above: Order Comment: Speci men Type: BLOOD SPECIMENOrdering Facility: [facility] Address: [address] [place] [address] Performed By: #### 5 8410-2 ####[facility] LABCLIA [id number] [address] [place] [address] [place] Comprehensive metabolic 2000 panelon 03-20-2025 Albumin [Mass/Vol] 4.2 g/dL Normal 3.9-4.9 [facility] Comment on above: Order Comment: Speci men Type: BLOOD SPECIMENOrdering Facility: [facility] Address: [address] [place] [address] Performed By: #### 2 132-9, 88153-4, 54835-6 ####[facility] LABCLIA [id number] [address] [place] [id number] [place] ALP [Catalytic activity/Vol] 76 U/L Normal 38-113 [facility] Comment on above: Order Comment: Speci men Type: BLOOD SPECIMENOrdering Facility: [facility] Address: [address] [place] [address] Performed By: #### 2 132-9, 20276-0, 00206-6 ####[facility] LABCLIA [id number] [facility] [place] [address] [place] ALT [Catalytic activity/Vol] 10 U/L Normal 10-54 [facility] Comment on above: Order Comment: Speci men Type: BLOOD SPECIMENOrdering Facility: [facility] Address: [address] [place] [address] Performed By: #### 2 132-9, 12362-2, 12602-8 ####[facility] LABCLIA [id number] [place] [address] [place] Anion gap [Moles/Vol] 9 mmol/L Normal 8-15 [facility] Comment on above: Order Comment: Speci men Type: BLOOD SPECIMENOrdering Facility: [facility] Address: [address] [place] [address] Performed By: #### 2 132-9, 36060-3, 69203-6 ####[facility] LABCLIA [id number] [place] [address] [place] AST [Catalytic activity/Vol] 25 U/L Normal 14-40 [facility] Comment on above: Order Comment: Speci men Type: BLOOD SPECIMENOrdering Facility: [facility] Address: [address] [place] [address] Performed By: #### 2 132-9, 02742-5, 05401-2 ####[facility] LABCLIA [id number] [address] [address] [place] Bilirubin [Mass/Vol] 0.4 mg/dL Normal 0.2-1.3 [facility] Comment on above: Order Comment: Speci men Type: BLOOD SPECIMENOrdering Facility: [facility] Address: [address] [place] [address] Performed By: #### 2 132-9, 30729-8, 50572-4 ####[facility] LABCLIA [id number] [address] [address] [place] Calcium [Mass/Vol] 9.1 mg/dL Normal 8.5-10.2 [facility] Comment on above: Order Comment: Speci men Type: BLOOD SPECIMENOrdering Facility: [facility] Address: [address] [place] [address] Performed By: #### 2 132-9, 76680-0, ####[facility] LABCLIA [id number] [place] [id number] [place] Chloride [Moles/Vol] 103 mmol/L Normal 98-107 [facility] Comment on above: Order Comment: Speci men Type: BLOOD SPECIMENOrdering Facility: [facility] Address: [address] [place], [place] [address] Performed By: #### 2 132-9, 31813-9, ####[facility] LABCLIA [id number] [place] [address] [place] CO2 [Moles/Vol] 26 mmol/L Normal 22-30 [facility] Comment on above: Order Comment: Speci men Type: BLOOD SPECIMENOrdering Facility: [facility] Address: [address] [place], [place] [address] Performed By: #### 2 132-9, 93757-8, 51487-0 ####[facility] LABCLIA [id number] [place] [id number] [place] Creatinine [Mass/Vol] 1.09 mg/dL Normal 0.73-1.22 [facility] Comment on above: Order Comment: Speci men Type: BLOOD SPECIMENOrdering Facility: [facility] Address: [address] [place] [address] Performed By: #### 2 132-9, 89970-0, 56161-2 ####[facility] LABIA [id number] [place] [id number] [place] eGFRcr SerPlBld CKD-EPI 2020 69 mL/min/1.73m??? Normal >=60 [facility] Comment on above: Order Comment: rGady baker Type: BLOOD SPECIMENOrdering Facility: [facility] Address: [address] [place] [address] Result Comment: Lela mated Glomerular Filtration Rate [...] actual GFR. Performed By: #### 2 132-9, 59624-4, ####[facility] LABIA [id number] [place] [id number] [place] Glucose [Mass/Vol] 108 mg/dL High 74-99 [facility] Comment on above: Order Comment: Grady baker Type: BLOOD SPECIMENOrdering Facility: [facility] Address: [address] [place] [address] Result Comment: The [place] Diabetes Association (ADA) provides guidance for cutoff [...] Standards of Medical Care in Diabetes 2016, [place] Diabetes Association. Diabetes Care. 2016.39(Suppl 1). Performed By: #### 2 132-9, 58144-9, 27635-0 ####[facility] LABCLIA [id number] [address] [address] [place] Potassium [Moles/Vol] 5.2 mmol/L High 3.7-5.1 [facility] Comment on above: Order Comment: Speci men Type: BLOOD SPECIMENOrdering Facility: [facility] Address: [address] [place] [address] Performed By: #### 2 132-9, 51209-8, ####[facility] LABCLIA [id number] [address] [address] [place] Protein [Mass/Vol] 7.0 g/dL Normal 6.3-8.0 [facility] Comment on above: Order Comment: Speci men Type: BLOOD SPECIMENOrdering Facility: [facility] Address: [address] [place], [place] [address] Performed By: #### 2 132-9, 40214-3, ####[facility] LABCLIA [id number] [address] [address] [place] Sodium [Moles/Vol] 138 mmol/L Normal 136-144 [facility] Comment on above: Order Comment: Speci men Type: BLOOD SPECIMENOrdering Facility: [facility] Address: [address] [place] [address] Performed By: #### 2 132-9, 18887-8, 74328-5 ####[facility] LABCLIA [id number] [address] [address] [place] Urea nitrogen [Mass/Vol] 18 mg/dL Normal 9-24 [facility] Comment on above: Order Comment: Speci men Type: BLOOD SPECIMENOrdering Facility: [facility] Address: [address] [place] [address] Performed By: #### 2 132-9, 83309-1, 67756-5 ####[facility] LABCLIA [id number] [address] [address] [place] Lipid 1996 panelon 5 Cholesterol [Mass/Vol] 153 mg/dL Normal <200 [facility] Comment on above: Order Comment: Speci men Type: BLOOD SPECIMENOrdering Facility: [facility] Address: [address] [place] [address] Result Comment: <200 mg/dL, Desirable 200-239 mg/dL, Borderline high >239 mg/dL, High Performed By: #### 2 132-9, 20995-7, 88773-2 ####[facility] LABCLIA [id number] [address] [place] Cholesterol in HDL [Mass/Vol] 42 mg/dL Normal >39 [facility] Comment on above: Order Comment: Speci men Type: BLOOD SPECIMENOrdering Facility: [facility] Address: [address] [place] [address] Result Comment: 40-5 9 mg/dL, Acceptable >59 mg/dL, High: Negative risk factor for coronary heart disease <40 mg/dL, Low: Positive risk factor for coronary heart disease Performed By: #### 2 132-9, 17760-7, 16636-2 ####[facility] LABCLIA [id number] [place] [id number] [facility] Cholesterol in LDL [Mass/Vol] 91 mg/dL Normal <100 [facility] Comment on above: Order Comment: Speci men Type: BLOOD SPECIMENOrdering Facility: [facility] Address: [address] [place] [address] Result Comment: <100 mg/dL, Optimal 100-129 mg/dL, Near optimal/above optimal 130-159 mg/dL, Borderline high 160-189 mg/dL, High >189 mg/dL, Very high Secondary prevention optimal LDL Cholesterol levels are recommended to be <70 mg/dL LDL cholesterol is calculated using the Tidwell-NIH equation. Performed By: #### 2 132-9, 12947-2, 90123-8 ####[facility] LABCLIA [id number] [address] [address] [place] Cholesterol in LDL/Cholesterol in HDL [Mass ratio] 2.17 {ratio} Normal <2.54 [facility] Comment on above: Order Comment: Speci men Type: BLOOD SPECIMENOrdering Facility: [facility] Address: [address] [place] [address] Result Comment: Refe annyce: 1. National Cholesterol Education Program ATP III Guideline At-A-Glance Quick Desk Reference: National Heart, Lung, and Blood [place]. National Institutes of Health. 2001: NIH Publication No. 01-3305. 2. An International Atherosclerosis Society position paper: global recommendations for the management of dyslipidemia: executive summary, Atherosclerosis. 2014: 232(2):410-413. Performed By: #### 2 132-9, 98463-8, ####[facility] LABCLIA [id number] [place] [address] [place] Cholesterol in VLDL [Mass/Vol] 18 mg/dL Normal <30 [facility] Comment on above: Order Comment: Speci men Type: BLOOD SPECIMENOrdering Facility: [facility] Address: [address] [place] [address] Performed By: #### 2 132-9, 52703-5, ####[facility] LABCLIA [id number] [address] [place] Cholesterol non HDL [Mass/Vol] 111 mg/dL Normal <130 [facility] Comment on above: Order Comment: Speci men Type: BLOOD SPECIMENOrdering Facility: [facility] Address: [address] [place] [address] Result Comment: <130 mg/dL, Optimal 130-159 mg/dL, Near optimal/above optimal 160-189 mg/dL, Borderline high 190-219 mg/dL, High >219 mg/dL, Very high Secondary prevention optimal non HDL Cholesterol levels are recommended to be <100 mg/dL Performed By: #### 2 132-9, 91965-8, 88618-7 ####[facility] LABCLIA [id number] [address] [place] [address] [place] Cholesterol.total/Choles terol in HDL [Mass ratio] 3.64 {ratio} Normal <5.10 [facility] Comment on above: Order Comment: Speci men Type: BLOOD SPECIMENOrdering Facility: [facility] Address: [address] [place] [address] Performed By: #### 2 132-9, 14237-8, ####[facility] LABIA [id number] [address] [address] [place] FASTING TIME 12 hrs Normal [facility] Comment on above: Order Comment: Speci men Type: BLOOD SPECIMENOrdering Facility: [facility] Address: [address] [place] [address] Performed By: #### 2 132-9, , ####[facility] LABCLIA [id number] [address] [place] [address] [place] Triglyceride [Mass/Vol] 112 mg/dL Normal <150 [facility] Comment on above: Order Comment: Speci men Type: BLOOD SPECIMENOrdering Facility: [facility] Address: [address] [place] [address] Result Comment: <150 mg/dL, Normal 150-199 mg/dL, Borderline high 200-499 mg/dL, High >499 mg/dL, Very high Performed By: #### 2 132-9, 12087-7, ####[facility] LABIA [id number] [address] [place] [address] [place] Vit [facility]12 [facility] Cobalamin (Vitamin B12) [Mass/Vol] 1139 pg/mL Normal 232-1245 [facility] Comment on above: Order Comment: Speci men Type: BLOOD SPECIMENOrdering Facility: [facility] Address: [address] [place] [address] Performed By: #### 2 132-9, 54012-2, 95579-7 ####[facility] NICHOLAS [id number] [address]RI[address] [place] CNOVon 03-17-2025 CNOV Office Visit (INTMWS ) LUÍS HERNANDEZ ([id number]) 1945 M EXC Date Time Provider Department [...] I, Bmi 30-34.9 Coronary Artery Disease Involving [place] Coronary Artery of [place] Heart Without Angina Pectoris Colon Polyposis Social [...] 25 HYDROXY 6. 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 7. Myalgia due to statin - ICD9: 729.1, E942.2, ICD10: M79.10, T46.6X5A - Statins not tolerated: MD Bunny Jolley Victor H, MD 03/17/2025 11:05 AM Signed FASTING BLOOD WORK TOMORROW SAKSHI (more content not included)... Normal [facility] Cardiology Visit Reporton Cardiology Visit Report [facility] [address] [place] [address] OFFICE VISIT Date of Service: 01/16/25 MR#: [id number] Acct: [id number] Name: LUÍS HERNANDEZ Rep #: [id number] 1 : 1945 Provider: FATMATA zaragoza Age/Sex: 79/M Location[facility] Status: Signed HPI HPI History of Present Illness Details: This is a 79-year-old male who presents to the office today for a posthospital follow-up. 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 [facility]INTM[facility] ) DAVIDLUÍS ([id number]) 1945 M EXC Date Time Provider Department 12/13/24 11:40 AM DARY CROFT INTMWS During your visit today, we recorded the following information about you: Pulse Respiration Blood pressure Weight 56/minute 14/minute 116/72 98.8 kg Dary Croft, EXECUTIVE CHAIRMAN OF THE BOARD.CORE MACHINE TENDER 12/13/2024 11:47 AM Signed We discussed your [...] This has been sent to your preferred [facility] pharmacy in [place]. - Take prednisone with food to avoid [...] our office for further evaluation. Dary Croft, EXECUTIVE CHAIRMAN OF THE BOARD.CORE MACHINE TENDER 12/13/2024 11:52 AM Signed CC: Patient presents with: Back Pain: RT lower into middle x 4 days HPI Recording using [employer] software for draft documentation of the visit was discussed with the patient/authorized service support representative; all questions welcomed and answered. Patient/authorized service support representative agreed to proceed Luís is a [...] infarction) (HCC) 08/29/2022 OLIVA on CPAP 07/29/2022 [facility] Restless legs syndrome (RLS) Stented [...] Knee replacement, total lt COLONOSCOPY 05/12/2019 in [place], repeat 3-5 years COLONOSCOPY SCREENING 2003 COLONOSCOPY STOMA W/BIOPSY SINGLE/MULTIPLE 06/2024 CORONARY STENT EA VESSEL 08/25/2022 PTCA/GIUSEPPE Prox. RCA Resolute Sycamore 4 x 18 mm LAMINECTOMY,CERVICAL 07/04/2020 NASAL/SPHENO (more content not included)... Normal [facility] XR LUMBAR 3V AP/LAT/L5-S1on 12-13-2024 XR LUMBAR [...] vasculature. IMPRESSION: Multilevel degenerative changes as detailed. Sound Engineering Technician: MATT Transcribe Date/Time: Dec 13 2024 2:52P Dictated by : NICHOLAS BRAVO MD This examination was interpreted and the report reviewed and electronically signed by: NICHOLAS BRAVO MD on Dec 13 2024 2:59PM EST [id number] Normal [facility] XR Lumbar spine 3 Viewson IMPRESSION: Multilevel degenerative changes as detailed. Sound Engineering Technician: PSCB Transcribe Date/Time: Dec 13 2024 2:52P Dictated by : NICHOLAS BRAVO MD This examination was interpreted and the report reviewed and electronically signed by: NICHOLAS BRAVO MD on Dec 13 2024 2:59PM [facility] DIVISION OF RADIOLOGY * * *Final Report* [...] of the vasculature. DIVISION OF RADIOLOGY Provider, [facility] - 12/13/2024 * * *Final Report* [...] IMPRESSION IMPRESSION: Multilevel degenerative changes as detailed. Sound Engineering Technician: PSCB Transcribe Date/Time: Dec 13 2024 2:52P Dictated by : NICHOLAS BARVO MD This examination was interpreted and the report reviewed and electronically signed by: NICHOLAS BRAVO MD on Dec 13 2024 2:59PM EST [facility] Radiology Study observation (narrative) Arturo Patricio XR Lumbar spine 3 ViewsOrder ed By: Ccf Provider on 12-13-2024 [facility] PSA,Total- Diagnosticon - PSA, DIAGNOSTIC 2.85 ng/mL Normal 0.0-4.0 [facility] Comment on above: Result Comment: This test was performed using the TPSA assay method for the EDUonGo chemistry system. Values obtained with different assay methods cannot be used interchangably. When changing PSA assays in the course of monitoring a patient, additional sequential testing should be carried out to confirm baseline values. Performed By: #### L 501.9940 #### [facility] [address] [place], [address] CNOVon 09-01-2024 CNOV Office Visit (INTMWS ) LUÍS HERNANDEZ ([id number]) 1945 M EXC Date Time Provider Department [...] PCP - General (Internal Medicine) Dary Croft APRN.CORE MACHINE TENDER as Dba Developer (Internal Medicine) Outside specialists seen: Dr. Rebekah Ly, ophthalmology. Dr. Mihaela Dunn, urology. Dr. Henri Hooper, cardiology. Dr. Malik Bower, ENT. Dr. Alyssa Stack, [facility] Dermatology. Dr. Hermes Meeks, [...] AM Signed This note was created using [employer]. Subjective Luís Hernandez is a 79 year [...] I, Bmi 30-34.9 Coronary Artery Disease Involving [place] Coronary Artery of [place] Heart Without Angina Pectoris Colon Polyposis Social [...] 1 mL (more content not included)... Normal [facility] KIDNEY/BLADDERon 08-22-19 25 KIDNEY/BLADDER * * *Final Report* * * DATE OF EXAM: Aug 22 2024 11:34AM [facility] 1055 - US KIDNEY/BLADDER / PROCEDURE REASON: [...] urinary bladder volume. Otherwise normal renal ultrasound Sound Engineering Technician: PSCB Transcribe Date/Time: Aug 23 2024 8:54A Dictated by : MERRY RODRIGUEZ MD This examination was interpreted and the report reviewed and electronically signed by: MERRY RODRIGUEZ MD on Aug 23 2024 8:57AM EST [id number] Normal [facility] LUÍS HERNANDEZ ([id number]) 1945 M EXC Date Time Provider Department [...] about a month ago? Patient's pharmacy is [facility] [place]. Please review and advise, JOEL Beltre Victor [...] Date Reviewed: 08/16/2024 Reviewed by: Dary Croft, EXECUTIVE CHAIRMAN OF THE BOARD.CORE MACHINE TENDER - Fully Assessed Reason for Visit: Results [95] Primary Visit Diagnosis:Urinary tract infection without hematuria, site unspecified [N39.0] Order(s):amoxicillin (AMOXIL) 875 mg tabletTake 1 tablet by mouth two times a day for 7 days.Disp: 14 tabletRfl: 0 US KIDNEY/BLADDER [[id number]] Order #: [id number] FUTURE Prescriptions as of 08/19/2024 - amoxicillin [...] Encounter Status:Closed by TAYLOR PEREZ on 08/19/24 [facility] Bacteria Culton Bacteria identified Cx Nom (U) [...] , Intermediate >32 , Resistant >64 Abnormal [facility] Comment on above: Performed By: #### 6 30-4 ####[facility] LABCLIA [id number] [place] [id number] [place] [facility] CNOVon 08-16-2024 CNOV Office Visit (INTMWS ) LUÍS HERNANDEZ ([id number]) 1945 Karthik EXC Date Time Provider Department 08/16/24 9:20 AM DARY CROFT INTMWS During your visit today, we recorded the following information about you: Pulse Respiration Blood pressure Weight 58/minute 14/minute 124/72 100.3 kg Dary Croft, BERTA.CORE MACHINE TENDER 08/16/2024 9:46 AM Signed CC: Patient presents [...] infarction) (HCC) 08/29/2022 OLIVA on CPAP 07/29/2022 [facility] Restless legs syndrome (RLS) Stented [...] Knee replacement, total lt COLONOSCOPY 05/12/2019 in [place], repeat 3-5 years COLONOSCOPY SCREENING 2003 CORONARY STENT EA VESSEL 08/25/2022 PTCA/GIUSEPPE Prox. RCA Resolute Sycamore 4 x 18 mm LAMINECTOMY,CERVICAL 07/04/2020 NASAL/SPHENOID [...] Use Vap (more content not included)... Normal [facility] UA DIP, URINE (POC)on 2023 BILIRUBIN UA (POCT) Negative Negative [facility] CLARITY UA (POCT) Clear [facility] COLOR UA (POCT) Yellow [facility] GLUCOSE UA (POCT) Negative Negative mg/dL [facility] Hemoglobin Ql (U) Small Abnormal Negative [facility] Interpretation and review of laboratory results Abnormal [facility] KETONE UA (POCT) Negative Negative mg/dL [facility] LEUKOCYTES UA (POCT) Small Abnormal Negative [facility] NITRITE UA (POCT) Negative Negative [facility] PH UA (POCT) 5.5 4.5 - 8.0 [facility] Protein Ql (U) 30 mg/dL Abnormal Negative [facility] SPECIFIC GRAVITY UA (POCT) 1.020 1.005 - 1.030 [facility] UROBILINOGEN UA (POCT) 0.2 Dalila l E.U./dL [facility] Location:[address], [place], [place], [id number] [place] [address] POINT OF CARE [facility] CNOVon 07-30-2024 CNOV Office Visit (INTMWS ) LUÍS HERNANDEZ ([id number]) 1945 M EXC Date Time Provider Department 07/30/24 11:20 AM HAROLDO HOLLIS INTMWS During your visit today, we recorded the following information about you: Pulse Respiration Blood pressure Weight 76/minute 16/minute 128/80 98.1 kg Haroldo Hollis MD 07/30/2024 11:[address] Dunn for follow up. Haroldo Hollis MD 07/30/2024 12:24 PM Signed This note was created using [employer]. Subjective Luís Hernandez is a 79 year [...] unspecified [N39.0, R31.9] Order(s):UA DIP, URINE (POC) [[id number]] Order #: [id number]. #:[id number] amoxicillin (AMOXIL) 8 (more content not included)... Normal [facility] UA DIP, URINE (POC)on 2023 BILIRUBIN UA (POCT) Negative Negative [facility] CLARITY UA (POCT) Cloudy [facility] COLOR UA (POCT) Yellow [facility] GLUCOSE UA (POCT) Negative Negative mg/dL [facility] Hemoglobin Ql (U) Large Abnormal Negative [facility] Interpretation and review of laboratory results Abnormal [facility] KETONE UA (POCT) Negative Negative mg/dL [facility] LEUKOCYTES UA (POCT) Small Abnormal Negative [facility] NITRITE UA (POCT) Negative Negative [facility] PH UA (POCT) 5.5 4.5 - 8.0 [facility] Protein Ql (U) >=300 Abnormal Negative mg/dL [facility] SPECIFIC GRAVITY UA (POCT) >=1.030 1.005 - 1.030 [facility] UROBILINOGEN UA (POCT) 0.2 Dalila l E.U./dL [facility] Location:[address], [id number] [place] [address] POINT OF CARE [facility] Bacteria Ur Culton 4 Bacteria identified Cx [...] , Intermediate >32 , Resistant >64 Abnormal [facility] Comment on above: Performed By: #### 6 30-4 ####[facility] NICHOLAS [id number] [place] [id number] [place] CNOVon 07-20-2024 CNOV Office Visit (INTMWS ) LUÍS HERNANDEZ ([id number]) 1945 M EXC Date Time Provider Department 07/20/24 9:00 AM DARY CROFT INTMWS During your visit today, we recorded the following information about you: Temperature Pulse Respiration Blood pressure 98.4 degrees 73/minute 16/minute 137/96 Weight 100 kg Dary Croft, EXECUTIVE CHAIRMAN OF THE BOARD.CORE MACHINE TENDER 07/20/2024 9:32 AM Signed CC: Patient presents [...] infarction) (HCC) 08/29/2022 OLIVA on CPAP 07/29/2022 [facility] Restless legs syndrome (RLS) Stented [...] Knee replacement, total lt COLONOSCOPY 05/12/2019 in [place], repeat 3-5 years COLONOSCOPY SCREENING 2004 CORONARY [...] 30.75 k (more content not included)... Normal [facility] UA DIP, URINE (POC)on 2023 BILIRUBIN UA (POCT) Negative Negative [facility] CLARITY UA (POCT) Clear [facility] COLOR UA (POCT) Yellow [facility] GLUCOSE UA (POCT) Negative Negative mg/dL [facility] Hemoglobin Ql (U) Moderate Abnormal Negative [facility] Interpretation and review of laboratory results Abnormal [facility] KETONE UA (POCT) Negative Negative mg/dL [facility] LEUKOCYTES UA (POCT) Small Abnormal Negative [facility] NITRITE UA (POCT) Positive Abnormal Negative [facility] PH UA (POCT) 5.5 4.5 - 8.0 [facility] Protein Ql (U) 100 mg/dL Abnormal Negative [facility] SPECIFIC GRAVITY UA (POCT) 1.025 1.005 - 1.030 [facility] UROBILINOGEN UA (POCT) 0.2 Dalila l E.U./dL [facility] Location:[facility], [address] [place] [address], [place], [address] [facility] POINT OF CARE [facility] Colonoscopy Reporton 024 Colonoscopy Report [facility] Medical Records Department [address] [place] [address] Colonoscopy Report MR#: [id number] Acct: [id number] Name: LUÍS HERNANDEZ Rep #: [id number] : 1945 79 From: Devin Meeks DO PCP: Dr. Haroldo Hollis MD [place] [facility] [place] Name: Luís Hernandez Procedure Date: 07/06/2024 [...] one hemostatic clip was successfully placed. 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 There was no bleeding at the end [...] present medications. Procedure Code(s): --- Professional --- 30287, Colonoscopy, flexible; with removal of tumor(s), polyp(s), or other lesion(s) by snare technique 37179, 59, Colonoscopy, flexible; with biopsy, single or multiple CPT copyright 2021 [employer]. All rights reserved. The codes documented in this report are preliminary and upon machine riveter review may be revised to meet current compliance requirements. Devin Meeks DO 07/06/2024 10:34:39 AM This report has been signed electronically. Number of Addenda: 0 Note Initiated On: 07/06/2024 10:02 AM 07/06/24 1034 Date Devin Chaney (more content not included)... [facility] MR/POSTOP.ANEon 07-06-2024 MR/POSTOP.[facility] Medical Records Department [address] [place] [address] Anesthesia Postop Eval I 07/06/24 1041 MR#: [id number] Acct: [id number] Name: LUÍS HERNANDEZ Rep #: [id number] : 1945 79 From: Mauri Churchill PCP: Dr. Haroldo Hollis MD Status:[facility] Y Race: C Location: [place] [address] Anesthesia: Postop Eval I Current Vital Signs [...] Date Mauri Hay Signature: Date CC: Signed [facility] MR/[id number] 07-06-2024 MR/POSTOPAN2 [facility] Medical Records Department [address] [place] [address] Anesthesia Postop Eval II 07/06/24 1151 MR#: [id number] Acct: [id number] Name: LUÍS HERNANDEZ Rep #: [id number] : 1945 79 From: Deng Rosales MD PCP: Dr. Haroldo Hollis MD Status[facility] [place] Race: C Location: EN Anesthesia Postop [...] Deng Hay Signature: Date CC: Signed Normal [facility] Surgery Specimen Level Eric 07-06-2024 Surgery Specimen Level IV ---- Patient Age/Sex Location Account Attending Physician ---- DAVIDLUÍS 79/M EN [id number] Devin Meeks DO ---- Specimen: [id number] Received: 07/06/24 Status: GLADYS Boyd Num: [id number] Spec Type: COLON BX Subm Dr: Devin [...] submitted entirely in one cassette. 07/06/2024 TC:1 CPT:28186b3 ---- Patient Age/Sex Location Account Attending Physician ---- LUÍS HERNANDEZ 79/M EN [id number] Devin Meeks DO ---- Signed (signature on file) Dr. Cale Aviles MD 07/07/24 1210 ---- Normal [facility] Comment on above: Performed By: #### P MARLENA #### [facility] [place] [place] [address] Inital Evaluation (1) - PTon 07-04-2024 Inital Evaluation (1) - PT [facility] Physical Therapy [facility] [address] [place] [address] / REHABILITATION SERVICES INITIAL EVALUATION MR#: [id number] Acct: [id number] Name: LUÍS HERNANDEZ Rep #: [id number] : 1945 79 From: Farzana BO Referring [...] side of his arm. He went to [facility] a few weeks ago and basically said [...] flex his neck because it is comfortable Mission Coordinator strength (R handed) R 80 and L [...] to be FAXED BACK to us at [phone] for Medicare purposes. For Medicare only, by signing this I certify the plan of care. Please let me know if there are questions or concerns regarding this plan of care. Physician Signature: Date:__ 07/04/24 1030 CC: WILNER Stanford; Dr. Haroldo Hollis MD Signed Normal [facility] Inital Evaluation (1) - PT [facility] Physical Therapy [facility] [address] [place] [address] / REHABILITATION SERVICES INITIAL EVALUATION MR#: [id number] Acct: [id number] Name: LUÍS HERNANDEZ Rep #: [id number] : 1945 79 From: Farzana BO Referring [...] flex his neck because it is comfortable Mission Coordinator strength (R handed) R 80 and L [...] to be FAXED BACK to us at [phone] for Medicare purposes. For Medicare only, by signing this I certify the plan of care. Please let me know if there are questions or concerns regarding this plan of care. Physician Signature: Date:__ 07/04/24 1029 CC: WILNER Stanford; Dr. Haroldo Hollis MD Signed Normal [facility] 06-01-2024 [facility] Telephone (INTMWS) LUÍS HERNANDEZ ([id number]) 1945 M EXC Date Time Provider Department 06/01/24 HAROLDO HOLLIS INTMWS During your visit today, we recorded the following information about you: Joceline Castro LPN 06/01/2024 8:54 AM Signed Patient calling, would like a recommendation on for a emr specialist. States he has been having middle [...] Status:Closed by ISAIAS RIVER on 06/01/24 [facility] Basophil percentageOrdered B y: Deion Dunn on 10-06-2023 Basophil percentage 3.07 ng/mL 0.0-4.0 [facility] Comment on above: This test was perfor med using the TPSA assay method for the[facility] chemistry system. Values obtained with differentassay methods cannot be used interchangably.When changing PSA assays in the course of monitoring apatient, additional sequential testing should be carriedout to confirm baseline values. Basophil percentageOrdered B y: Dr. Hooper on 01-30-2023 Bilirubin [Mass/Vol] 0.50 mg/dL 0.20-1.00 [facility] Comment on above: For patients on eltr ombopag therapy, use of Dimension [place] TBIL is not recommended. Cholesterol [Mass/Vol] 121 mg/dL <200 [facility] Comment on above: <200 mg/dL Desirable 200-240 mg/dL Borderline >240 mg/dL High Risk Protein [Mass/Vol] 7.2 g/dL 6.4-8.2 [facility] Triglyceride [Mass/Vol] 110 mg/dL <199 [facility] Comment on above: The drugs N-Acetylcy steine and Metamizole may falsely depress this assay.Serum Triglycerides Reference Interval Normal <150 mg/dL Borderline high 150 - 199 mg/dL High 200 - 499 mg/dL Very High > or = 500 mg/dL Direct bilirubinOrdered By: Dr. Hooper on 01-30-2023 Bilirubin.direct [Mass/Vol] 0.19 mg/dL 0.00-0.30 [facility] Laboratory - Chemistry and C hemistry - challengeOrdered By: Dr. Hooper on 01-30-2023 ALP [Catalytic activity/Vol] 73 U/L 45-117 [facility] ALT [Catalytic activity/Vol] 23 U/L 16-61 [facility] Globulin (S) [Mass/Vol] 3.6 g/dL 2.2-4.2 [facility] Serum or plasma albumin richie urement (mass/volume)Ordered By: Dr. Hooper on 01-30-2023 Albumin [Mass/Vol] 3.6 g/dL 3.2-5.0 [facility] Serum or plasma cholesterol in HDL measurement (mass/volume)Ordered By: Dr. Hooper on 01-30-2023 Cholesterol in HDL [Mass/Vol] 59 mg/dL >40 [facility] Comment on above: The drugs N-Acetylcy steine and Metamizole may falsely depress this assay. Reference Range HDL <40 mg/dL Low HDL Cholesterol HDL >or= 60 mg/dL High HDL Cholesterol Serum or plasma cholesterol in VLDL measurement (mass/volume)Ordered By: Dr. Hooper on 01-30-2023 Cholesterol in VLDL [Mass/Vol] 22 mg/dL 5-40 [facility] Serum or plasma low density lipoprotein (LDL) cholesterol measurement (mass/volume)Ordered By: Dr. Hooper on 01-30-2023 Cholesterol in LDL [Mass/Vol] 40 mg/dL 0-130 [facility] Thin prep Papanicolaou smear with manual screeningOrdered By: Dr. Hooper on 01-30-2023 Thin prep Papanicolaou smear with manual screening 17 U/L 15-37 [facility] No Panel InformationOrdered By: Dr. Hooper on 10-16-2022 Troponin I High Sensitivity 7 pg/mL 3.0-78.0 [facility] Comment on above: Please Note: New [place] t Units and Gender Specific Reference Ranges. For more information see Policy Stat Procedure [place] High Sensitivity Troponin (TNIH) and attachments. Absolute lymphocyte countOrd ered By: Yeyo Christopher on 08-30-2022 Lymphocytes Auto (Unsp spec) [#/Vol] 1.57 10*3/uL 0.83-4.51 [facility] Amorphous sediment detection in urine sediment by light microscopyOrdered By: Yeyo Christopher on 08-30-2022 Amorphous sediment LM Ql (Urine sed) 1+ URATE [facility] Basophil percentageOrdered B y: Yeyo Christopher on 08-30-2022 Basophils/100 WBC (Bld) 0.7 % 0-1 [facility] Chloride [Moles/Vol] 106 mmol/L 98-107 [facility] Eosinophils/100 WBC (Bld) 3.6 % 0-5 [facility] Glucose [Mass/Vol] 104 mg/dL 74-106 [facility] Comment on above: Fasting Glucose resu lt from 100 to 125 mg/dL suggests IMPAIRED HOMEOSTASIS per A.D.A. criteria. Neutrophils (Bld) [#/Vol] 5.4 10*3/uL 2.0-7.7 [facility] Neutrophils/100 WBC (Bld) 64.4 % 47-70 [facility] Potassium [Moles/Vol] 3.7 mmol/L 3.5-5.1 [facility] Sodium [Moles/Vol] 139 mmol/L 136-145 [facility] WBC (Bld) [#/Vol] 8.4 10*3/uL 4.4-11.0 [facility] Basophil percentage 0 SEEN /hpf 0-5 [facility] Bilirubin Test strip Ql (U)O rdered By: Yeyo Christopher on 08-30-2022 Bilirubin Ql (U) Negative Negative [facility] Blood erythrocytes count (nu mber/volume)Ordered By: Yeyo Christopher on 08-30-2022 RBC (Bld) [#/Vol] 4.66 10*6/uL 4.6-6.2 [facility] Blood hemoglobin measurement (mass/volume)Ordered By: Yeyo Christopher on 08-30-2022 Hemoglobin (Bld) [Mass/Vol] 13.9 g/dL 13.0-16.5 [facility] Blood lymphocytes/100 leukoc ytesOrdered By: Yeyo Christopher on 08-30-2022 Lymphocytes/100 WBC (Bld) 18.6 % 19-41 [facility] Blood monocytes/100 leukocyt esOrdered By: Yeyo Christopher on 08-30-2022 Monocytes/100 WBC (Bld) 12.2 % 0-10 [facility] Blood platelet mean volumeOr dered By: Yeyo Christopher on 08-30-2022 Platelet mean volume (Bld) [Entitic vol] 9.8 fL 6.2-12.0 [facility] Determination of erythrocyte mean corpuscular volume (MCV)Ordered By: Yeyo Christopher on 08-30-2022 MCV (RBC) [Entitic vol] 90.3 fL 80-94 [facility] Hematocrit Auto (Bld) [Volum e fraction]Ordered By: Yeyo Christopher on 08-30-2022 Hematocrit (Bld) [Volume fraction] 42.1 % 40-54 [facility] INR in Blood by Coagulation assayOrdered By: Yeyo Christopher on 08-30-2022 INR Coag (Bld) [Relative time] 1.0 {INR} [facility] Ketones Test strip Ql (U)Ord ered By: Yeyo Christopher on 08-30-2022 Ketones Ql (U) Negative Negative [facility] Laboratory - Chemistry and C hemistry - challengeOrdered By: Yeyo Christopher on 08-30-2022 CO2 [Moles/Vol] 25.0 mmol/L 21.0-32.0 [facility] Urea nitrogen/Creatinine [Mass ratio] 16.7 mg/mg 10-20 [facility] Laboratory - CoagulationOrde red By: Yeyo Christopher on 08-30-2022 aPTT Coag (Bld) [Time] 29.3 s 24.1-36.2 [facility] PT Coag (PPP) [Time] 12.9 s 11.7-14.9 [facility] Laboratory - Hematology and Cell countsOrdered By: Yeyo Christopher on 08-30-2022 Erythrocyte distribution width (RBC) [Entitic vol] 43.4 fL 35.1-43.9 [facility] Erythrocyte distribution width (RBC) [Ratio] 13.2 % 11.6-14.6 [facility] Immature granulocytes/100 WBC (Bld) 0.500 % 0.0-0.9 [facility] Comment on above: IG% - Immature Granu locytes (promyelocytes, myelocytes and metamyelocytes) > 1% indicates that a LEFT SHIFT is Present. MCH (RBC) [Entitic mass] 29.8 pg 27.0-32.0 [facility] Nucleated RBC/100 WBC (Bld) [Ratio] 0 % 0-5 [facility] MCHC Auto (RBC) [Mass/Vol]Or dered By: Yeyo Christopher on 08-30-2022 MCHC (RBC) [Mass/Vol] 33.0 g/dL 32-36 [facility] Mucus LM Ql (Urine sed)Order ed By: Yeyo Christopher on 08-30-2022 Mucus Ql (Urine sed) 0 SEEN /hpf [facility] Nitrite Test strip Ql (U)Ord ered By: Yeyo Christopher on 08-30-2022 Nitrite Ql (U) Negative Negative [facility] No Panel InformationOrdered By: Yeyo Christopher on 08-30-2022 Estimated Creatinine Clearance Calc 54.07 ml/min [facility] Estimated GFR (MDRD) Amer 76 mL/min >60 [facility] Comment on above: GFR Calc Estimated GFR (MDRD) Non-Af Amer 63 mL/min >60 [facility] Comment on above: Non- GFR Calc Platelets bldOrdered By: Efraín Christopher on 08-30-2022 Platelets (Bld) [#/Vol] 279 10*3/uL 150-450 [facility] Protein Test strip Ql (U)Ord ered By: Yeyo Christopher on 08-30-2022 Protein Ql (U) 30 mg/dl Negative [facility] Serum or plasma calcium richie urement (mass/volume)Ordered By: Yeyo Christopher on 08-30-2022 Calcium [Mass/Vol] 8.4 mg/dL 8.5-10.1 [facility] Serum or plasma creatinine m easurement (mass/volume)Ordered By: Yeyo Christopher on 08-30-2022 Creatinine [Mass/Vol] 1.20 mg/dL 0.70-1.30 [facility] Comment on above: The validity of the calculated GFR & GFRAA in patients over 70 years has not been determined. Clinical correlation is essential. Serum or plasma urea nitroge n measurement (mass/volume)Ordered By: Yeyo Christopher on 08-30-2022 Urea nitrogen [Mass/Vol] 20 mg/dL 7-18 [facility] Squamous epithelial cells de tection in urine sediment by light microscopyOrdered By: Yeyo Christopher on 08-30-2022 Epithelial cells.squamous LM Ql (Urine sed) 0-5 SEEN /hpf 0-5 [facility] Thin prep Papanicolaou smear with manual screeningOrdered By: Yeyo Christopher on 08-30-2022 Thin prep Papanicolaou smear with manual screening 8 5-15 [facility] Urine blood detectionOrdered By: Yeyo Christopher on 08-30-2022 RBC Ql (U) 250 /ul Negative [facility] RBC Ql (U) 25-50 SEEN /hpf 0-5 [facility] Urine clarityOrdered By: Efraín Christopher on 08-30-2022 Clarity (U) Sl. Cloudy Clear [facility] Urine color determinationOrd ered By: Yeyo Christopher on 08-30-2022 Color (U) Yellow Yellow [facility] Urine glucose detectionOrder ed By: Yeyo Christopher on 08-30-2022 Glucose Ql (U) Normal mg/dl Normal [facility] Urine leukocyte esterase det ection by dipstickOrdered By: Yeyo Christopher on 08-30-2022 Leukocyte esterase Test strip Ql (U) Negative Negative [facility] Urine pHOrdered By: Yeyo chin on 08-30-2022 pH (U) 6.0 [pH] 5.0 - 8.0 [facility] Urine sediment bacteria coun t by microscopy (number/high power field)Ordered By: Yeyo Christopher on 08-30-2022 Bacteria LM.HPF (Urine sed) [#/Area] 0 /[HPF] None Seen [facility] Urine specific gravity measu rementOrdered By: Yeyo Christopher on 08-30-2022 Specific gravity (U) [Rel density] 1.010 1.002-1.030 [facility] Urobilinogen Auto test strip Ql (U)Ordered By: Yeyo Christopher on 08-30-2022 Urobilinogen Ql (U) Normal mg/dl Normal [facility] Basophil percentageOrdered B y: Dr. Gardner on 08-26-2022 Bilirubin [Mass/Vol] 0.50 mg/dL 0.20-1.00 [facility] Comment on above: For patients on eltr ombopag therapy, use of Dimension [place] TBIL is not recommended. Chloride [Moles/Vol] 108 mmol/L 98-107 [facility] Glucose [Mass/Vol] 103 mg/dL 74-106 [facility] Comment on above: Fasting Glucose resu lt from 100 to 125 mg/dL suggests IMPAIRED HOMEOSTASIS per A.D.A. criteria. Potassium [Moles/Vol] 3.8 mmol/L 3.5-5.1 [facility] Protein [Mass/Vol] 5.7 g/dL 6.4-8.2 [facility] Sodium [Moles/Vol] 141 mmol/L 136-145 [facility] WBC (Bld) [#/Vol] 8.4 10*3/uL 4.4-11.0 [facility] Basophil percentageOrdered B y: Dr. Eckert on 08-26-2022 Cholesterol [Mass/Vol] 155 mg/dL <200 [facility] Comment on above: <200 mg/dL Desirable 200-240 mg/dL Borderline >240 mg/dL High Risk Triglyceride [Mass/Vol] 134 mg/dL <199 [facility] Comment on above: The drugs N-Acetylcy steine and Metamizole may falsely depress this assay.Serum Triglycerides Reference Interval Normal <150 mg/dL Borderline high 150 - 199 mg/dL High 200 - 499 mg/dL Very High > or = 500 mg/dL Blood erythrocytes count (nu mber/volume)Ordered By: Dr. Gardner on 08-26-2022 RBC (Bld) [#/Vol] 4.23 10*6/uL 4.6-6.2 [facility] Blood hemoglobin measurement (mass/volume)Ordered By: Dr. Gardner on 08-26-2022 Hemoglobin (Bld) [Mass/Vol] 12.8 g/dL 13.0-16.5 [facility] Blood platelet mean volumeOr dered By: Dr. Gardner on 08-26-2022 Platelet mean volume (Bld) [Entitic vol] 9.4 fL 6.2-12.0 [facility] Determination of erythrocyte mean corpuscular volume (MCV)Ordered By: Dr. Gardner on 08-26-2022 MCV (RBC) [Entitic vol] 91.7 fL 80-94 [facility] Hematocrit Auto (Bld) [Volum e fraction]Ordered By: Dr. Gardner on 08-26-2022 Hematocrit (Bld) [Volume fraction] 38.8 % 40-54 [facility] Laboratory - Chemistry and C hemistry - challengeOrdered By: Dr. Gardner on 08-26-2022 ALP [Catalytic activity/Vol] 66 U/L 45-117 [facility] ALT [Catalytic activity/Vol] 10 U/L 16-61 [facility] CO2 [Moles/Vol] 25.0 mmol/L 21.0-32.0 [facility] Globulin (S) [Mass/Vol] 2.9 g/dL 2.2-4.2 [facility] Urea nitrogen/Creatinine [Mass ratio] 18.8 mg/mg 10-20 [facility] Laboratory - Hematology and Cell countsOrdered By: Dr. Gardner on 08-26-2022 Erythrocyte distribution width (RBC) [Entitic vol] 45.7 fL 35.1-43.9 [facility] Erythrocyte distribution width (RBC) [Ratio] 13.6 % 11.6-14.6 [facility] MCH (RBC) [Entitic mass] 30.3 pg 27.0-32.0 [facility] MCHC Auto (RBC) [Mass/Vol]Or dered By: Dr. Gardner on 08-26-2022 MCHC (RBC) [Mass/Vol] 33.0 g/dL 32-36 [facility] No Panel InformationOrdered By: Dr. Gardner on 08-26-2022 Estimated Creatinine Clearance Calc 64.25 ml/min [facility] Estimated GFR (MDRD) Amer 92 mL/min >60 [facility] Comment on above: GFR Calc Estimated GFR (MDRD) Non-Af Amer 76 mL/min >60 [facility] Comment on above: Non- GFR Calc Platelets bldOrdered By: Dr. Gardner on 08-26-2022 Platelets (Bld) [#/Vol] 283 10*3/uL 150-450 [facility] Serum or plasma albumin richie urement (mass/volume)Ordered By: Dr. Gardner on 08-26-2022 Albumin [Mass/Vol] 2.8 g/dL 3.2-5.0 [facility] Serum or plasma albumin/glob ulin mass ratioOrdered By: Dr. Gardner on 08-26-2022 Albumin/Globulin [Mass ratio] 1.0 {ratio} 0.9-2.4 [facility] Serum or plasma calcium richie urement (mass/volume)Ordered By: Dr. Gardner on 08-26-2022 Calcium [Mass/Vol] 7.8 mg/dL 8.5-10.1 [facility] Serum or plasma cholesterol in HDL measurement (mass/volume)Ordered By: Dr. Eckert on 08-26-2022 Cholesterol in HDL [Mass/Vol] 40 mg/dL >40 [facility] Comment on above: The drugs N-Acetylcy steine and Metamizole may falsely depress this assay. Reference Range HDL <40 mg/dL Low HDL Cholesterol HDL >or= 60 mg/dL High HDL Cholesterol Serum or plasma cholesterol in VLDL measurement (mass/volume)Ordered By: Dr. Eckert on 08-26-2022 Cholesterol in VLDL [Mass/Vol] 27 mg/dL 5-40 [facility] Serum or plasma creatinine m easurement (mass/volume)Ordered By: Dr. Gardner on 08-26-2022 Creatinine [Mass/Vol] 1.01 mg/dL 0.70-1.30 [facility] Comment on above: The validity of the calculated GFR & GFRAA in patients over 70 years has not been determined. Clinical correlation is essential. Serum or plasma low density lipoprotein (LDL) cholesterol measurement (mass/volume)Ordered By: Dr. Eckert on 08-26-2022 Cholesterol in LDL [Mass/Vol] 88 mg/dL 0-130 [facility] Serum or plasma urea nitroge n measurement (mass/volume)Ordered By: Dr. Gardner on 08-26-2022 Urea nitrogen [Mass/Vol] 19 mg/dL 7-18 [facility] Thin prep Papanicolaou smear with manual screeningOrdered By: Dr. Gardner on 08-26-2022 Thin prep Papanicolaou smear with manual screening 19 U/L 15-37 [facility] Thin prep Papanicolaou smear with manual screening 8 5-15 [facility] Absolute lymphocyte countOrd ered By: Dr. Arnett on 08-25-2022 Lymphocytes Auto (Unsp spec) [#/Vol] 1.98 10*3/uL 0.83-4.51 [facility] Basophil percentageOrdered B y: Dr. Arnett on 08-25-2022 Basophils/100 WBC (Bld) 0.8 % 0-1 [facility] Eosinophils/100 WBC (Bld) 2.2 % 0-5 [facility] Neutrophils (Bld) [#/Vol] 5.7 10*3/uL 2.0-7.7 [facility] Neutrophils/100 WBC (Bld) 63.3 % 47-70 [facility] Blood lymphocytes/100 leukoc ytesOrdered By: Dr. Arnett on 08-25-2022 Lymphocytes/100 WBC (Bld) 21.9 % 19-41 [facility] Blood monocytes/100 leukocyt esOrdered By: Dr. Arnett on 08-25-2022 Monocytes/100 WBC (Bld) 11.5 % 0-10 [facility] Laboratory - Hematology and Cell countsOrdered By: Dr. Arnett on 08-25-2022 Immature granulocytes/100 WBC (Bld) 0.300 % 0.0-0.9 [facility] Comment on above: IG% - Immature Granu locytes (promyelocytes, myelocytes and metamyelocytes) > 1% indicates that a LEFT SHIFT is Present. Nucleated RBC/100 WBC (Bld) [Ratio] 0 % 0-5 [facility] No Panel InformationOrdered By: Dr. Eckert on 08-25-2022 Activated Clotting Time 239 sec 74-137 [facility] No Panel InformationOrdered By: Dr. Arnett on 08-25-2022 Troponin I High Sensitivity 1086 pg/mL 3.0-78.0 [facility] Comment on above: Critical Result(s) C alled at: 06:55:41 08/25/2022 by: Fanny Reynolds. Results read back by same. Please Note: New Test Units and Gender Specific Reference Ranges. For more information see Policy Stat Procedure [place] High Sensitivity Troponin (TNIH) and attachments. Absolute lymphocyte counton 08-24-2022 Lymphocytes Auto (Unsp spec) [#/Vol] 2.07 10*3/uL 0.83-4.51 [facility] Work Phone: Basophil percentageon 2022 Basophils/100 WBC (Bld) 0.7 % 0-1 [facility] Work Phone: Chloride [Moles/Vol] 109 mmol/L 98-107 [facility] Work Phone: Eosinophils/100 WBC (Bld) 3.3 % 0-5 [facility] [facility] Work Phone: Glucose [Mass/Vol] 107 mg/dL 74-106 [facility] Work Phone: Comment on above: Fasting Glucose resu lt from 100 to 125 mg/dL suggests IMPAIRED HOMEOSTASIS per A.D.A. criteria. Neutrophils (Bld) [#/Vol] 3.9 10*3/uL 2.0-7.7 [facility] Work Phone: [phone] Neutrophils/100 WBC (Bld) 53.7 % 47-70 [facility] Work Phone: [phone] Potassium [Moles/Vol] 3.8 mmol/L 3.5-5.1 [facility] Work Phone: [phone] Sodium [Moles/Vol] 141 mmol/L 136-145 [facility] Work Phone: [phone] WBC (Bld) [#/Vol] 7.3 10*3/uL 4.4-11.0 [facility] Work Phone: [phone] Blood erythrocytes count (nu mber/volume)on 08-24-2022 RBC (Bld) [#/Vol] 4.84 10*6/uL 4.6-6.2 [facility] Work Phone: [phone] Blood hemoglobin measurement (mass/volume)on 08-24-2022 Hemoglobin (Bld) [Mass/Vol] 14.9 g/dL 13.0-16.5 [facility] Work Phone: [phone] Blood lymphocytes/100 leukoc yteson 08-24-2022 Lymphocytes/100 WBC (Bld) 28.4 % 19-41 [facility] Work Phone: [phone] Blood monocytes/100 leukocyt eson 08-24-2022 Monocytes/100 WBC (Bld) 13.5 % 0-10 [facility] Work Phone: [phone] Blood platelet mean volumeon 08-24-2022 Platelet mean volume (Bld) [Entitic vol] 9.3 fL 6.2-12.0 [facility] Work Phone: [phone] Determination of erythrocyte mean corpuscular volume (MCV)on 08-24-2022 MCV (RBC) [Entitic vol] 90.5 fL 80-94 [facility] Work Phone: [phone] Hematocrit Auto (Bld) [Volum e fraction]on 08-24-2022 Hematocrit (Bld) [Volume fraction] 43.8 % 40-54 [facility] Work Phone: [phone] Laboratory - Chemistry and C hemistry - challengeon 08-24-2022 CO2 [Moles/Vol] 26.0 mmol/L 21.0-32.0 [facility] Work Phone: [phone] Urea nitrogen/Creatinine [Mass ratio] 15.3 mg/mg 10-20 [facility] Work Phone: [phone] Laboratory - Hematology and Cell countson 08-24-2022 Erythrocyte distribution width (RBC) [Entitic vol] 44.2 fL 35.1-43.9 [facility] Work Phone: [phone] Erythrocyte distribution width (RBC) [Ratio] 13.2 % 11.6-14.6 [facility] Work Phone: [phone] Immature granulocytes/100 WBC (Bld) 0.400 % 0.0-0.9 [facility] Work Phone: [phone] Comment on above: IG% - Immature Granu locytes (promyelocytes, myelocytes and metamyelocytes) > 1% indicates that a LEFT SHIFT is Present. MCH (RBC) [Entitic mass] 30.8 pg 27.0-32.0 [facility] Work Phone: [phone] Nucleated RBC/100 WBC (Bld) [Ratio] 0 % 0-5 [facility] Work Phone: [phone] MCHC Auto (RBC) [Mass/Vol]on 08-24-2022 MCHC (RBC) [Mass/Vol] 34.0 g/dL 32-36 [facility] Work Phone: [phone] Panel Informationon 08-24 Estimated Creatinine Clearance Calc 54.99 ml/min [facility] Work Phone: [phone] Estimated GFR (MDRD) Amer 77 mL/min >60 [facility] Work Phone: [phone] Comment on above: GFR Calc Estimated GFR (MDRD) Non-Af Amer 64 mL/min >60 [facility] Work Phone: Comment on above: Non- GFR Calc Troponin I High Sensitivity 32 pg/mL 3.0-78.0 [facility] Work Phone: Comment on above: Please Note: New Tyra t Units and Gender Specific Reference Ranges. For more information see Policy Stat Procedure [place] High Sensitivity Troponin (TNIH) and attachments. Platelets bldon 08-24-2022 Platelets (Bld) [#/Vol] 338 10*3/uL 150-450 [facility] Work Phone: Serum or plasma calcium richie urement (mass/volume)on 08-24-2022 Calcium [Mass/Vol] 9.0 mg/dL 8.5-10.1 [facility] Work Phone: Serum or plasma creatinine m easurement (mass/volume)on 08-24-2022 Creatinine [Mass/Vol] 1.18 mg/dL 0.70-1.30 [facility] Work Phone: Comment on above: The validity of the calculated GFR & GFRAA in patients over 70 years has not been determined. Clinical correlation is essential. Serum or plasma urea nitroge n measurement (mass/volume)on 08-24-2022 Urea nitrogen [Mass/Vol] 18 mg/dL 7-18 [facility] Work Phone: Thin prep Papanicolaou smear with manual screeningon 08-24-2022 Thin prep Papanicolaou smear with manual screening 6 5-15 [facility] Work Phone: CNPMarycarmen 12-04-2021 [facility] Telephone ([facility]) LUÍS HERNANDEZ ([id number]) 1945 M EXC Date Time Provider Department 12/04/21 XAVIER HAMPTON [facility] During your visit today, we recorded [...] Encounter Status:Closed by HO SANCHEZ on 12/04/21 [facility] OBSOLETEon 07-20-2021 OBSOLETE Refill ([facility]) LUÍS HERNANDEZ ([id number]) 1945 M EXC Date Time Provider Department 07/20/21 XAVIER HAMPTON [facility] During your visit today, we recorded the following information about you: Maribeth Mcpherson RN 07/23/2021 9:49 AM Signed Last seen by MD 07/19/20 Next appointment with MD ramos Current Labs 06/11/20 Date last rx given 08/29/20 Original ordering physician Called, no answer, left message asking if he has requested this refill in [place] [facility] ([facility] 07/23/2021 9:58 AM Signed Patient called the nurse back to confirm that the prescription should be filled into [place] pharmacy and he thanks the nurse for [...] Encounter Status:Closed by JAZMIN HALL on 07/26/21 [facility] Viv [facility] LUÍS HERNANDEZ ([id number]) [address] [facility] Date Time Provider Department 01/24/21 XAVIER HAMPTON [facility] During your visit today, we recorded the following information about you: Merary Weinberg 02/14/2021 8:53 AM Addendum Left message for patient to call [facility] to schedule an annual wellness visit with your primary care doctor. Allergies As of Date: 01/24/2021 Noted Allergy Reaction PERCOCET (OXYCODONE-ACETAMINOPH EN)09/11/2011 5 - Intolerance Comments: Anxiety and slurred words CODEINE 07/22/2005 Comments: itch, nightmares VICODIN (HYDROCODONE-ACETAMINO PHE*02/22/2009 2 - Rash 9 - Itching Date Reviewed: 07/19/2020 Reviewed by: Maribeth Mcpherson RN - Fully Assessed Reason for Visit: Medicare Wellness Exam [7350] Prescriptions as of 01/24/2021 Sig: DOXAZOSIN 4 [...] Encounter Status:Closed by MERARY WEINBERG on 01/24/21 [facility] Hematologyon 06-13-2020 aPTT Coag (Bld) [Time] 26 s 23 - 32 sec [facility] Basophils/100 WBC (Bld) 1 % [facility] Eosinophils (Bld) [#/Vol] 0.154 10*3/uL 15 - 500 cells/uL [facility] Eosinophils/100 WBC (Bld) 2 % [facility] Hematocrit (Bld) [Volume fraction] 43.7 % 38.5 - 50.0 % [facility] Hemoglobin (Bld) [Mass/Vol] 14.8 g/dL 13.2 - 17.1 g/dL [facility] INR Coag (Bld) [Relative time] 1 {INR} [facility] Lymphocytes (Bld) [#/Vol] 1.409 10*3/uL 850 - 3900 cells/uL [facility] Lymphocytes/100 WBC (Bld) 18.3 % [facility] MCH (RBC) [Entitic mass] 30.4 pg 27. 0 - 33.0 pg [facility] MCV (RBC) [Entitic vol] 89.7 fL 80.0 - 100.0 fL [facility] Monocytes/100 WBC (Bld) 9 % [facility] Neutrophils/100 WBC (Bld) 69.7 % [facility] Platelets (Bld) [#/Vol] 245 10*3/uL 140 - 400 Thousand/uL [facility] RBC (Bld) [#/Vol] 4.87 10*6/uL 4.20 - 5.8 0 Million/uL [facility] WBC (Bld) [#/Vol] 7.7 10*3/uL 3.8 - 10.8 Thousand/uL [facility] Metabolic Panelon 06-13-2020 Albumin [Mass/Vol] 4.4 g/dL 3.6 - 5.1 g/dL [facility] ALP [Catalytic activity/Vol] 73 U/L 35 - 144 U/L [facility] ALT [Catalytic activity/Vol] 19 U/L 9 - 46 U/L [facility] AST [Catalytic activity/Vol] 19 U/L 10 - 35 U/L [facility] Bilirubin [Mass/Vol] 0.6 mg/dL 0.2 - 1 .2 mg/dL [facility] Calcium [Mass/Vol] 9.2 mg/dL 8.6 - 10. 3 mg/dL [facility] Chloride [Moles/Vol] 105 mmol/L 98 - 11 0 mmol/L [facility] CO2 [Moles/Vol] 23 mmol/L 20 - 32 mmol/L [facility] Creatinine [Mass/Vol] 1.18 mg/dL 0.70 - 1.18 mg/dL [facility] Glucose [Mass/Vol] 87 mg/dL 65 - 99 mg/dL [facility] Potassium [Moles/Vol] 4.3 mmol/L 3.5 - 5.3 mmol/L [facility] Protein [Mass/Vol] 7 g/dL 6.1 - 8.1 g/dL [facility] Sodium [Moles/Vol] 141 mmol/L 135 - 146 mmol/L [facility] Urea nitrogen [Mass/Vol] 19 mg/dL 7 - 25 mg/d L [facility] Urea nitrogen/Creatinine [Mass ratio] NOT APPLICABLE 6 (calc) [facility] Otheron 06-13-2020 Abs Baso 77 cells/uL 0 - 200 cells/uL [facility] Abs [place] 693 cells/uL 200 - 950 cells/uL [facility] Abs Neut (ANC) 5367 cells/uL 1500 - 7800 cells/uL [facility] Albumin/Globulin [Mass ratio] 1.7 (calc) 1.0 - 2.5 (calc) [facility] Anti-Hepatitis C NON-REACTIVE NON-REACTIVE [facility] Clotting time Heparin protamine titration (Bld) 10.4 sec 9.0 - 11.5 sec [facility] Erythrocyte distribution width (RBC) [Ratio] 12.8 % 11.0 - 15.0 % [facility] Gamma Globulin 2.6 g/dL (calc) 1.9 - 3.7 g/dL (calc) [facility] GFR/1.73 sq M.predicted MDRD (S/P/Bld) [Vol rate/Area] 60 mL/min/{1.73_m2} > OR = 60 mL/min/1.73m 2 [facility] Hep A Ab, Total NON-REACTIVE NON-REACTIVE [facility] Hep B Core Ab Total NON-REACTIVE NON-REACTIVE [facility] Hep B Surface Ab, Qual NON-REACTIVE NON-REACTIV E [facility] Hep B Surface Ag NON-REACTIVE NON-REACTIVE [facility] Hyaline Casts NONE SEEN NONE SEEN /LPF [facility] If 70 mL/min/1.73m2 > OR = 60 mL/min/1.73m 2 [facility] Leukocytes 0-5 < OR = 5 /HPF [facility] MCHC (RBC) [Mass/Vol] 33.9 g/dL 32.0 - 36.0 g/dL [facility] Platelet mean volume (Bld) [Entitic vol] 9.3 fL 7.5 - 12.5 fL [facility] Signal to Cut-Off 0.01 <1.00 [facility] Licensed Audiologist CULTURE, URINE, ROUTINE CULTURE, URINE, ROUTINE Micro Number: [id number] Test Status: Final Specimen Source: URINE Specimen Quality: Adequate Result: No Growth Test Performed at: [email or web address] [id number] TY ADAIR MD Specimen Received Date: 06/11/2020 14:35 [facility] Urinalysison 06-13-2020 Bacteria LM.HPF (Urine sed) [#/Area] NONE SEEN NONE SEEN /HPF [facility] Epithelial cells.squamous LM.HPF (Urine sed) [#/Area] NONE SEEN < OR = 5 /HPF [facility] RBC LM.HPF (Urine sed) [#/Area] 0-2 < OR = 2 /HPF [facility] Vital Signs Date Time Vital Sign Value Performing Clinician Faci lity 05-16-2025 07:56-0400 Body mass index (BMI) [Ratio] 30.8 kg/m2 Dr. Haroldo Hollis MD Work Phone: [facility] 05-16-2025 07:56-0400 Body weight 100.[address] Haroldo Hollis MD Work Phone: [phone] [place] [address] 05-16-2025 07:56-0400 Diastolic blood pressure 75 mm[Hg] Dr. Haroldo Hollis MD Work Phone: [phone] [address] 05-16-2025 07:56-0400 Heart rate 62 /min Dr. Haroldo Hollis MD Work Phone: [phone] [place] [address] 05-16-2025 07:56-0400 Respiratory rate 18 /min Dr. Haroldo Hollis MD Work Phone: [phone] [place] [address] 05-16-2025 07:56-0400 SaO2% (BldA) [Mass fraction] 9 % Dr. Haroldo Hollis MD Work Phone: [phone] [place] [address] 05-16-2025 07:56-0400 Systolic blood pressure 117 mm[Hg] Dr. Haroldo Hollis MD Work Phone: [facility] 03-17-2025 10:130400 Body height 175.3 cm Haroldo Hollis MD Work Phone: [facility] 03-17-2025 10:13-0400 Body mass index (BMI) [Ratio] 32.62 kg/m2 Haroldo Hollis MD Work Phone: [facility] 03-17-2025 10:13-0400 Body weight 100.2 kg Haroldo Hollis MD Work Phone: [facility] 03-17-2025 10:13-0400 Diastolic blood pressure 68 mm[Hg] Haroldo Hollis MD Work Phone: [facility] 03-17-2025 10:13-0400 Heart rate 63 /min Haroldo Hollis MD Work Phone: [facility] 03-17-2025 10:13-0400 Respiratory rate 14 /min Haroldo Hollis MD Work Phone: [facility] 03-17-2025 10:13-0400 SaO2% (BldA) [Mass fraction] 94 % Haroldo Hollis MD Work Phone: [facility] 03-17-2025 10:13-0400 Systolic blood pressure 116 mm[Hg] Haroldo Hollis MD Work Phone: [facility] 01-16-2025 08:18-0400 Diastolic blood pressure 78 mm[Hg] Dr. Haroldo Hollis MD Work Phone: [facility] 01-16-2025 08:18-0400 Systolic blood pressure 138 mm[Hg] Dr. Haroldo Hollis MD Work Phone: [facility] 01-16-2025 06:37-0400 Body mass index (BMI) [Ratio] 31.1 kg/m2 Dr. Haroldo Hollis MD Work Phone: [facility] 01-16-2025 06:37-0400 Body weight 101.[address] Haroldo Hollis MD Work Phone: [facility] 01-16-2025 06:37-0400 Heart rate 52 /min Dr. Haroldo Hollis MD Work Phone: [facility] 01-16-2025 06:37-0400 Respiratory rate 18 /min Dr. Haroldo Hollis MD Work Phone: [facility] 01-16-2025 06:37-0400 SaO2% (BldA) [Mass fraction] 98 % Dr. Haroldo Hollis MD Work Phone: [facility] 12-13-2024 11:13-0400 Body mass index (BMI) [Ratio] 31.93 kg/m2 Dary Croft [employer] Work Phone: [facility] 12-13-2024 11:13-0400 Body weight 98.8 kg Dary Croft [employer]EC[employer] Work Phone: [facility] 12-13-2024 11:13-0400 Diastolic blood pressure 72 mm[Hg] Dary ZunigaJovanny [employer]EC[employer]IVE [employer] Work Phone: [facility] 12-13-2024 11:13-0400 Heart rate 56 /min Dary Croft [employer]EC[employer] Work Phone: [facility] 12-13-2024 11:13-0400 Respiratory rate 14 /min Dary Croft [employer]EC[employer]IVE [employer] Work Phone: [facility] 12-13-2024 11:13-0400 SaO2% (BldA) [Mass fraction] 99 % Dary Croft [employer]EC[employer]IVE [employer] Work Phone: [facility] 12-13-2024 11:13-0400 Systolic blood pressure 116 mm[Hg] Dary Croft [employer]EC[employer] Work Phone: [facility] 09-01-2024 08:04-0500 Body height 175.9 cm Haroldo Hollis MD Work Phone: [facility] 09-01-2024 08:04-0500 Body mass index (BMI) [Ratio] 32.06 kg/m2 Haroldo Hollis MD Work Phone: [facility] 09-01-2024 08:04-0500 Body temperature 98.01 [degF] Haroldo Hollis MD Work Phone: [facility] 09-01-2024 08:04-0500 Body weight 99.2 kg Haroldo Hollis MD Work Phone: [facility] 09-01-2024 08:04-0500 Diastolic blood pressure 78 mm[Hg] Haroldo Hollis MD Work Phone: [facility] 09-01-2024 08:04-0500 Heart rate 60 /min Haroldo Hollis MD Work Phone: [facility] 09-01-2024 08:04-0500 Respiratory rate 16 /min Haroldo Hollis MD Work Phone: [facility] 09-01-2024 08:04-0500 Systolic blood pressure 118 mm[Hg] Haroldo Hollis MD Work Phone: [facility] 08-16-2024 09:04-0500 Body mass index (BMI) [Ratio] 30.84 kg/m2 Dary Croft [employer] Work Phone: [facility] 08-16-2024 09:04-0500 Body weight 100.3 kg Dary Croft [employer]EC[employer] Work Phone: [facility] 08-16-2024 09:04-0500 Diastolic blood pressure 72 mm[Hg] Dary Croft [employer]EC[employer]IVE [employer] Work Phone: [facility] 08-16-2024 09:04-0500 Heart rate 58 /min Dary Croft [employer]EC[employer]IVE [employer] Work Phone: [facility] 08-16-2024 09:04-0500 Respiratory rate 14 /min Dary Croft [employer]EC[employer]IVE [employer] Work Phone: [facility] 08-16-2024 09:04-0500 SaO2% (BldA) [Mass fraction] 98 % Dary Croft [employer]EC[employer]IVE [employer] Work Phone: [facility] 08-16-2024 09:04-0500 Systolic blood pressure 124 mm[Hg] Dary Croft [employer] Work Phone: [facility] 07-30-2024 11:06-0500 Body mass index (BMI) [Ratio] 30.16 kg/m2 Haroldo Hollis MD Work Phone: [facility] 07-30-2024 11:06-0500 Body weight 98.1 kg Haroldo Hollis MD Work Phone: [facility] 07-30-2024 11:06-0500 Diastolic blood pressure 80 mm[Hg] Haroldo Hollis MD Work Phone: [facility] 07-30-2024 11:06-0500 Heart rate 76 /min Haroldo Hollis MD Work Phone: [facility] 07-30-2024 11:06-0500 Respiratory rate 16 /min Haroldo Hollis MD Work Phone: [facility] 07-30-2024 11:06-0500 SaO2% (BldA) [Mass fraction] 97 % Haroldo Hollis MD Work Phone: [facility] 07-30-2024 11:06-0500 Systolic blood pressure 128 mm[Hg] Haroldo Hollis MD Work Phone: [facility] 07-20-2024 09:02-0500 Body mass index (BMI) [Ratio] 30.75 kg/m2 Dary Croft [employer] Work Phone: [facility] 07-20-2024 09:02-0500 Body temperature 98.4 [degF] Dary Croft [employer]EC[employer] Work Phone: [facility] 07-20-2024 09:02-0500 Body weight 100 kg Dary Croft [employer]EC[employer] Work Phone: [facility] 07-20-2024 09:02-0500 Diastolic blood pressure 96 mm[Hg] Dary Croft [employer]EC[employer]IVE [employer] Work Phone: [facility] 07-20-2024 09:02-0500 Heart rate 73 /min Dary Croft [employer]EC[employer]IVE [employer] Work Phone: [facility] 07-20-2024 09:02-0500 Respiratory rate 16 /min Dary Croft [employer]EC[employer]IVE [employer] Work Phone: [facility] 07-20-2024 09:02-0500 Systolic blood pressure 137 mm[Hg] Dary Jovanny [employer]EC[employer]IVE [employer] Work Phone: [facility] 10-15-2023 11:05-0500 Body temperature 98.01 [degF] Haroldo Hollis MD Work Phone: [facility] 10-15-2023 11:05-0500 Body weight 97.07 kg Haroldo Hollis MD Work Phone: [facility] 10-15-2023 11:05-0500 Diastolic blood pressure 68 mm[Hg] Haroldo Hollis MD Work Phone: [facility] 10-15-2023 11:05-0500 Heart rate 56 /min Haroldo Hollis MD Work Phone: [facility] 10-15-2023 11:05-0500 Respiratory rate 16 /min Haroldo Hollis MD Work Phone: [facility] 10-15-2023 11:05-0500 Systolic blood pressure 120 mm[Hg] Haroldo Hollis MD Work Phone: [facility] 07-16-2023 14:51-0500 Diastolic blood pressure 73 mm[Hg] Dary Older [employer]EC[employer]IVE [employer] Work Phone: [facility] 07-16-2023 14:51-0500 Heart rate 68 /min Dary Older [employer]EC[employer]IVE [employer] Work Phone: [facility] 07-16-2023 14:51-0500 Systolic blood pressure 123 mm[Hg] Dary Older [employer]EC[employer]IVE [employer] Work Phone: [facility] 07-16-2023 14:35-0500 Body weight 101.15 kg Dary Older [employer]ECUTIVE [employer] Work Phone: [facility] 07-16-2023 14:35-0500 Respiratory rate 18 /min Dary Older [employer]EC[employer]IVE [employer] Work Phone: [facility] 07-16-2023 14:35-0500 SaO2% (BldA) [Mass fraction] 98 % Dary Older [employer]EC[employer]IVE [employer] Work Phone: [facility] 02-25-2023 14:190400 Body height 180.3 cm Haroldo Hollis MD Work Phone: [facility] 02-25-2023 14:19-0400 Body weight 97.07 kg Haroldo Hollis MD Work Phone: [facility] 02-25-2023 14:190400 Diastolic blood pressure 78 mm[Hg] Haroldo Hollis MD Work Phone: [facility] 02-25-2023 14:19-0400 Heart rate 64 /min Haroldo Hollis MD Work Phone: [facility] 02-25-2023 14:19-0400 Respiratory rate 24 /min Haroldo Hollis MD Work Phone: [facility] 02-25-2023 14:19-0400 Systolic blood pressure 124 mm[Hg] Haroldo Hollis MD Work Phone: [facility] 01-30-2023 11:27-0400 Body height 177.8 cm MD Haroldo Hollis [facility] 01-30-2023 11:27-0400 Body mass index (BMI) [Ratio] 30.5 kg/m2 MD Haroldo Hollis [facility] 01-30-2023 11:27-0400 Body weight 96.61 kg MD Haroldo Hollis [facility] 01-30-2023 11:27-0400 Diastolic blood pressure 67 mm[Hg] MD Haroldo Hollis [facility] 01-30-2023 11:27-0400 Heart rate 62 /min MD Haroldo Hollis [facility] 01-30-2023 11:27-0400 Respiratory rate 16 /min MD Haroldo Hollis [facility] 01-30-2023 11:27-0400 Systolic blood pressure 110 mm[Hg] MD Haroldo Hollis [facility] 12-15-2022 00:36-0400 Body weight 94.8 kg MD Haroldo Hollis [facility] 11-28-2022 10:04-0400 Body height 177.8 cm MD Haroldo Hollis [facility] 11-28-2022 10:04-0400 Body weight 94.8 kg MD Haroldo Hollis [facility] 10-31-2022 11:06-0400 Body height 177.8 cm MD Haroldo Hollis [facility] 10-31-2022 11:06-0400 Body weight 95.7 kg MD Haroldo Hollis [facility] 10-29-2022 10:10-0400 Body weight 95.25 kg Haroldo Hollis MD Work Phone: [facility] 10-29-2022 10:10-0400 Diastolic blood pressure 74 mm[Hg] Haroldo Hollis MD Work Phone: [facility] 10-29-2022 10:10-0400 Heart rate 68 /min Haroldo Hollis MD Work Phone: [facility] 10-29-2022 10:10-0400 Respiratory rate 16 /min Haroldo Hollis MD Work Phone: [facility] 10-29-2022 10:10-0400 Systolic blood pressure 120 mm[Hg] Haroldo Hollis MD Work Phone: [facility] 10-15-2022 00:30-0500 Body weight 97.29 kg MD Haroldo Hollis [facility] 10-03-2022 11:25-0500 Body height 177.8 cm MD Haroldo Hollis [facility] 10-03-2022 11:25-0500 Body weight 97.29 kg MD Haroldo Hollis [facility] 09-23-2022 09:47-0500 Body height 177.8 cm MD Haroldo Hollis [facility] 09-23-2022 09:46-0500 Body mass index (BMI) [Ratio] 30.9 kg/m2 MD Haroldo Hollis [facility] 09-23-2022 09:46-0500 Body weight 97.97 kg MD Haroldo Hollis [facility] 09-23-2022 09:46-0500 Diastolic blood pressure 82 mm[Hg] MD Haroldo Hollis [facility] 09-23-2022 09:46-0500 Heart rate 62 /min MD Haroldo Spicer [facility] 09-23-2022 09:46-0500 Respiratory rate 18 /min MD Haroldo Spicer [facility] 09-23-2022 09:46-0500 SaO2% (BldA) [Mass fraction] 98 % MD Haroldo Hollis [facility] 09-23-2022 09:46-0500 Systolic blood pressure 137 mm[Hg] MD Haroldo Hollis [facility] 09-03-2022 14:22-0500 Body height 177.8 cm [facility] 14:22-0500 Body weight 98.42 kg [facility] 09-03-2022 13:27-0500 Body mass index (BMI) [Ratio] 30.7 kg/m2 MD Haroldo Hollis [facility] 09-03-2022 13:27-0500 Heart rate 64 /min [facility] 09-03-2022 13:27-0500 SaO2% (BldA) [Mass fraction] 98 % MD Haroldo Hollis [facility] 08-30-2022 20:30-0500 Body height 179.07 cm MD Haroldo Hollis [facility] Work Phone: 08-30-2022 20:30-0500 Body mass index (BMI) [Ratio] 29.9 kg/m2 MD Haroldo Hollis [facility] 08-30-2022 20:30-0500 Body temperature 97.7 [degF] MD Haroldo Spicer [facility] 08-30-2022 20:30-0500 Body weight 96.16 kg [facility] 08-30-2022 20:30-0500 Diastolic blood pressure 89 mm[Hg] MD Haroldo Hollis [facility] 08-30-2022 20:30-0500 Heart rate 93 /min [facility] 08-30-2022 20:30-0500 Respiratory rate 18 /min MD Haroldo Hollis [facility] 08-30-2022 20:30-0500 SaO2% (BldA) [Mass fraction] 100 % MD Haroldo Hollis [facility] 08-30-2022 20:30-0500 Systolic blood pressure 160 mm[Hg] MD Haroldo Hollis [facility] 08-29-2022 09:57-0500 Body temperature 96.69 [degF] Haroldo Hollis MD Work Phone: [facility] 08-29-2022 09:57-0500 Body weight 97.98 kg Haroldo Hollis MD Work Phone: [facility] 08-29-2022 09:57-0500 Diastolic blood pressure 68 mm[Hg] Haroldo Hollis MD Work Phone: [facility] 08-29-2022 09:57-0500 Heart rate 62 /min Haroldo Hollis MD Work Phone: [facility] 08-29-2022 09:57-0500 Respiratory rate 18 /min Haroldo Hollis MD Work Phone: [facility] 08-29-2022 09:57-0500 SaO2% (BldA) [Mass fraction] 94 % Haroldo Hollis MD Work Phone: [facility] 08-29-2022 09:57-0500 Systolic blood pressure 114 mm[Hg] Haroldo Hollis MD Work Phone: [facility] 08-26-2022 13:35-0500 Body temperature 97.9 [degF] MD Haroldo Hollis [facility] 08-26-2022 13:35-0500 Diastolic blood pressure 84 mm[Hg] MD Haroldo Hollis [facility] 08-26-2022 13:35-0500 Heart rate 67 /min MD Haroldo Spicer [facility] 08-26-2022 13:35-0500 Respiratory rate 16 /min MD Haroldo Spicer [facility] 08-26-2022 13:35-0500 SaO2% (BldA) [Mass fraction] 97 % MD Haroldo Hollis [facility] 08-26-2022 13:35-0500 Systolic blood pressure 122 mm[Hg] MD Haroldo Hollis [facility] 08-25-2022 01:53-0500 Body mass index (BMI) [Ratio] 31.2 kg/m2 MD Zarco Hollis [facility] 08-25-2022 01:53-0500 Body weight 98.8 kg MD Haroldo Hollis [facility] 08-25-2022 01:22-0500 Diastolic blood pressure 94 mm[Hg] [facility] Work Phone: 08-25-2022 01:22-0500 Heart rate 72 /min [facility] Work Phone: 08-25-2022 01:22-0500 Respiratory rate 16 /min [facility] Work Phone: 08-25-2022 01:22-0500 SaO2% (BldA) [Mass fraction] 95 % [facility] Work Phone: 08-25-2022 01:22-0500 Systolic blood pressure 130 mm[Hg] [facility] Work Phone: 08-25-2022 01:02-0500 Body temperature 97.5 [degF] [facility] Work Phone: 08-24-2022 23:14-0500 Body height 177.8 cm [facility] Work Phone: 08-24-2022 23:14-0500 Body mass index (BMI) [Ratio] 30.1 kg/m2 [facility] Work Phone: 08-24-2022 23:14-0500 Body weight 95.25 kg [facility] Work Phone: 07-29-2022 13:51-0500 Body height 177.8 cm Dary Older EXECUTIVE CHAIRMAN OF THE BOARD.CORE MACHINE TENDER Work Phone: [facility] 07-29-2022 13:51-0500 Body weight 101.61 kg Dary Older EXECUTIVE CHAIRMAN OF THE BOARD.CORE MACHINE TENDER Work Phone: [facility] 07-29-2022 13:51-0500 Diastolic blood pressure 85 mm[Hg] Dary Older EXECUTIVE CHAIRMAN OF THE BOARD.CORE MACHINE TENDER Work Phone: [facility] 07-29-2022 13:51-0500 Heart rate 80 /min Dary Older EXECUTIVE CHAIRMAN OF THE BOARD.CORE MACHINE TENDER Work Phone: [facility] 07-29-2022 13:51-0500 Respiratory rate 14 /min Dary Older EXECUTIVE CHAIRMAN OF THE BOARD.CORE MACHINE TENDER Work Phone: [facility] 07-29-2022 13:51-0500 Systolic blood pressure 128 mm[Hg] Dary Older EXECUTIVE CHAIRMAN OF THE BOARD.CORE MACHINE TENDER Work Phone: [facility] 01-14-2022 11:00-0400 Body height 179.[address] Zackary Carlos Work Phone: [facility] Work Phone: 01-14-2022 11:00-0400 Body mass index (BMI) [Ratio] 30.8 kg/m2 Dr. Zackary Carlos Work Phone: [facility] Work Phone: 01-14-2022 11:00-0400 Body temperature 98.4 [degF] Dr. Zackary Carlos Work Phone: [facility] Work Phone: 01-14-2022 11:00-0400 Body weight 98.[address] Zackary Carlos Work Phone: [facility] Work Phone: 01-14-2022 11:00-0400 Diastolic blood pressure 84 mm[Hg] Dr. Zackary Carlos Work Phone: [facility] Work Phone: 01-14-2022 11:00-0400 Heart rate 84 /min Dr. Zackary Carlos Work Phone: [facility] Work Phone: 01-14-2022 11:00-0400 Respiratory rate 14 /min Dr. Zackary Carlos Work Phone: [facility] Work Phone: 01-14-2022 11:00-0400 SaO2% (BldA) [Mass fraction] 98 % Dr. Zackary Carlos Work Phone: [facility] Work Phone: 01-14-2022 11:00-0400 Systolic blood pressure 128 mm[Hg] Dr. Zackary Carlos Work Phone: [facility] Work Phone: 07-19-2020 13:05-0500 Body Temperature 98.4 [degF] [facility] 07-19-2020 13:05-0500 Body weight 91.17 kg [facility] ic 07-19-2020 13:05-0500 BP Diastolic 82 mm[Hg] [facility] ic 07-19-2020 13:05-0500 BP Systolic 138 mm[Hg] [facility] ic 07-19-2020 13:05-0500 Height 180.3 cm [facility] ic 07-19-2020 13:05-0500 Pulse (Heart Rate) 97 /min [facility] 07-19-2020 13:05-0500 Pulse Oximetry 99 % [facility] ic 07-19-2020 13:05-0500 Respiratory Rate 15 /min [facility] 05-31-2020 12:40-0400 Body Temperature 98.1 [degF] [facility] 05-31-2020 12:40-0400 Body weight 96.62 kg [facility] ic 05-31-2020 12:40-0400 BP Diastolic 79 mm[Hg] [facility] ic 05-31-2020 12:40-0400 BP Systolic 128 mm[Hg] [facility] ic 05-31-2020 12:40-0400 Height 180.3 cm [facility] ic 05-31-2020 12:40-0400 Pulse (Heart Rate) 67 /min [facility] linic 05-31-2020 12:40-0400 Pulse Oximetry 97 % [facility] ic Encounters Encounter Date Encounter Type Care Provider Facility Start: 06-09-2025 ambulatory You Hooper Facility:[facility] Start: 06-02-2025 ambulatory Jonna Mcintyre Facility: [facility] Start: 05-16-2025 End: 05-16-2025 Patient encounter procedure Jonna Mcintyre [employer]ANSIT [employer] -Laboratory Work Phone: Start: 05-16-2025 End: 05-16-[address] Haroldo Hollis MD Work Phone: -[facility] Start: 04-05-2025 End: 04-05-2025 ambulatory Haroldo Hollis MD Work Phone: [facility] Comment on above: Allied Health Visit (Medication Adherence Outreach/) Start: 03-25-2025 End: 03-25-2025 Follow-up encounter Haroldo Hollis MD Work Phone: [facility] [place] Start: 03-20-2025 End: 03-20-2025 ambulatory HAROLDO HOLLIS Facility:[facility] Start: 03-17-2025 End: 03-17-2025 Office outpatient visit 25 minutes Haroldo Hollis MD Work Phone: [facility] [place] Comment on above: Primary hypertension (Primary Dx); Hyperlipidemia, unspecified hyperlipidemia type; Vitamin B12 deficiency; Hyperparathyroidism (HCC); Vitamin D deficiency; 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 Work Phone: Start: 01-16-2025 End: 01-16-[address] Haroldo Hollis MD Work Phone: [facility] Work Phone: Start: 12-21-2024 End: 12-21-2024 ambulatory Haroldo Hollis MD Work Phone: [facility] Comment on above: Allied Health Visit (Medication Adherence Outreach/) Start: 12-13-2024 ambulatory DARY Vann ity:[facility] Start: 12-13-2024 End: 12-13-2024 Subsequent hospital visit by physician Kurt [facility] [place] Work Phone: Radiology Comment on above: [...] Start: 12-13-2024 End: 12-13-2024 ambulatory DARY CROFT Facility:[facility] Start: 09-05-2024 End: 09-05-2024 ambulatory Haroldo Hollis Facility:[facility] Start: 09-01-2024 End: 09-01-2024 ambulatory HAROLDO HOLLIS Facility:[facility] Start: 09-01-2024 End: 09-01-2024 Patient encounter [...] unspecified hyperlipidemia type; 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; OLIVA on CPAP; Colon polyposis Start: 08-22-2024 End: 08-22-2024 ambulatory HAROLDO HOLLIS Facility:[facility] Start: 08-22-2024 End: 08-22-2024 Subsequent hospital visit by physician [facility] Work Phone: Radiology Comment on above: Urinary tract infect ion without hematuria, site unspecified [N39.0] Start: 08-18-2024 End: 08-19-2024 Telephone encounter Haroldo Hollis MD Work Phone: [facility] [place] Comment on above: Results Start: 08-16-2024 End: 08-16-2024 ambulatory DARY CROFT Facility:[facility] Start: 08-16-2024 End: 08-16-2024 Patient encounter procedure Dary Croft EXECUTIVE CHAIRMAN OF THE BOARD.CORE MACHINE TENDER Work Phone: [facility] [place] Comment on above: Dysuria (Primary Dx) Start: 08-01-2024 End: 08-01-2024 ambulatory Monserrat Stanford Facility:[facility] Start: 07-30-2024 End: 07-30-2024 Office outpatient visit 15 minutes Haroldo Hollis MD Work Phone: [facility] [place] Comment on above: Urinary tract infect ion with hematuria, site unspecified (Primary Dx) Start: 07-30-2024 End: 07-30-2024 ambulatory HAROLDO HOLLIS Facility:[facility] Start: 07-20-2024 End: 07-20-2024 ambulatory DARY CROFT Facility:[facility] Start: 07-20-2024 End: 07-20-2024 Patient encounter procedure Dary Croft EXECUTIVE CHAIRMAN OF THE BOARD.CORE MACHINE TENDER Work Phone: [facility] [place] Comment on above: Dysuria (Primary Dx) Start: 07-11-2024 End: 07-11-2024 ambulatory Jigar Seals [facility] Start: 07-11-2024 End: 07-11-2024 Patient encounter procedure Jigar Seals [facility] Comment on above: Population Health Na vigation Outreach (Papo spicer ) Start: 07-06-2024 ambulatory Haroldo Hollis Facili ty:[facility] Start: 07-06-2024 End: 07-06-2024 ambulatory Haroldo Hollis Facility:[facility] Start: 06-01-2024 End: 06-01-2024 Telephone encounter Haroldo Hollis MD Work Phone: [facility] [place] Comment on above: Consult Start: 05-12-2024 End: 05-12-2024 Refill Haroldo Hollis MD Work Phone: Family [facility] Comment on above: Refill Request Start: 04-13-2024 End: 04-15-2024 Refill Haroldo Hollis MD Work Phone: [facility] [place] Comment on above: Refill Request Start: 01-26-2024 Telephone encounter Haroldo brumfield MD Work Phone: [facility] [place] Comment on above: Orders Start: 11-25-2023 Refill Haroldo ramirez MD Work Phone: [facility] [place] Comment on above: Insurance Authorizat ion Start: 11-23-2023 Telephone encounter Dary garcia EXECUTIVE CHAIRMAN OF THE BOARD.CORE MACHINE TENDER Work Phone: Family [facility] Comment on above: Question Start: 10-20-2023 End: 06-21-2024 Telephone encounter Tomasa Johnson MD Work Phone: General Surgery Comment on above: 02/10/2024 COLON MEDI NA ; Cardiac Clearance Start: 10-15-2023 ambulatory Haroldo ramirez MD Work Phone: [facility] [place] Comment on above: Constipation Start: 10-15-2023 End: 10-15-2023 Patient encounter procedure Haroldo Hollis MD Work Phone: [facility] [place] Comment on above: Constipation, unspec ified constipation type (Primary Dx) Start: 10-06-2023 End: 10-06-2023 ambulatory [facility] Work Phone: Start: 10-06-2023 End: 10-06-2023 Patient encounter procedure [facility]-Laboratory Work Phone: Start: 08-20-2023 End: 08-20-2023 ambulatory [facility] Work Phone: Start: 08-20-2023 End: 08-20-2023 Discharged Recurring [facility]-Physical Therapy Work Phone: Start: 07-16-2023 End: 07-16-2023 Patient encounter procedure Dary Dow APRN.CORE MACHINE TENDER Work Phone: [facility] [place] Comment on above: Fatigue, unspecified type (Primary Dx); Vitamin B12 deficiency; PSA elevation; Vitamin D deficiency; Cervicalgia Start: 02-25-2023 End: 02-25-2023 Patient encounter procedure Haroldo Hollis MD Work Phone: Internal [facility] Comment on above: Medicare annual well ness visit, subsequent (Primary Dx); OLIVA on CPAP; Restless leg syndrome; Primary hypertension; Hyperlipidemia, unspecified hyperlipidemia type; Stented coronary artery (proximal RCA); Benign prostatic hyperplasia with lower urinary tract symptoms, symptom details unspecified Start: 01-30-2023 End: 01-30-2023 ambulatory MD Haroldo Hollis [facility] Work Phone: Start: 01-30-2023 End: 01-30-2023 Patient encounter procedure MD Haroldo Hollis [facility] Start: 12-15-2022 End: 01-14-2023 ambulatory MD Haroldo Hollis [facility] Work Phone: Start: 12-15-2022 End: 01-14-2023 Discharged Recurring MD Haroldo Hollis [facility]-Cardiac Rehab Start: 12-12-2022 End: 12-14-2022 ambulatory MD Haroldo Hollis [facility] Work Phone: Start: 12-12-2022 End: 12-14-2022 Discharged Recurring MD Haroldo Hollis [facility]-Cardiac Rehab Start: 11-14-2022 End: 11-14-2022 ambulatory MD Haroldo Hollis [facility] Work Phone: Start: 11-14-2022 End: 11-14-2022 Discharged Recurring MD Haroldo ARGUELLO [facility]-Cardiac Rehab Start: 11-03-2022 Telephone encounter Haroldo brumfield MD Work Phone: [facility] Comment on above: Fatigue; Patient Que stion Start: 10-29-2022 End: 10-29-2022 Patient encounter procedure Haroldo Hollis MD Work Phone: Internal [facility] Comment on above: Primary hypertension (Primary Dx); Stented coronary artery (proximal RCA); History of prostate surgery Start: 10-22-2022 Refill Haroldo ramirez MD Work Phone: [facility] Comment on above: Refill Request Start: 10-20-2022 Registered Recurring MD Haroldo ramirez [facility]-Cardiac Rehab Start: 10-16-2022 End: 10-16-2022 ambulatory MD Haroldo Hollis [facility] Work Phone: Start: 10-16-2022 End: 10-16-2022 Patient encounter procedure MD Haroldo Monetquez [facility]-Laboratory Start: 10-13-2022 End: 10-14-2022 ambulatory MD Haroldo Hollis [facility] Work Phone: Start: 10-13-2022 End: 10-14-2022 Discharged Recurring MD Haroldo Monetquez [facility]-Cardiac Rehab Start: 09-29-2022 Registered Recurring MD Haroldo ramirez [facility]-Cardiac Rehab Start: 09-24-2022 End: 09-24-2022 Patient encounter procedure MD Haroldo Hollis [facility] Start: 09-24-2022 End: 09-24-2022 Refill Haroldo Hollis MD Work Phone: [facility] Comment on above: Refill Request Start: 09-23-2022 End: 09-23-2022 Patient encounter procedure MD Haroldo Hollis [facility] Start: 09-12-2022 End: 09-16-2022 [facility] Start: 09-12-2022 End: 09-16-2022 Discharged Recurring MD Haroldo Hollis [facility]-Cardiac Rehab Start: 09-12-2022 Registered Recurring MD Haroldo ramirez [facility]-Cardiac Rehab Start: 09-03-2022 End: 09-03-2022 [facility] Start: 09-03-2022 End: 09-03-2022 Patient encounter procedure MD Haroldo Hollis [facility]-Cardiac Rehab Start: 08-30-2022 End: 08-30-2022 Emergency department patient visit MD Haroldo Hollis [facility]-Emergency Department Start: 08-29-2022 End: 08-29-2022 Patient encounter procedure Haroldo Hollis MD Work Phone: [facility] [place] Comment on above: NSTEMI (non-ST eleva cecilia myocardial infarction) (HCC) (Primary Dx); Primary hypertension; Hyperlipidemia, unspecified hyperlipidemia type; Stented coronary artery (proximal RCA); Chronic neck pain Start: 08-27-2022 Patient Outreach Haroldo polanco MD Work Phone: [facility] [place] Comment on above: Transition Of Care Start: 08-26-2022 Non-patient / Non-visit MD Haroldo Lennon [facility] Inpatient Physicians Start: 08-26-2022 Non-patient / Non-visit MD Haroldo Lennon [facility] Start: 08-25-2022 Non-patient / Non-visit MD Haroldo Lennon [facility] Start: 08-25-2022 End: 08-26-2022 Evaluation and management of inpatient MD Haroldo Hollis [facility]-Progressive Care Unit Start: 08-25-2022 Evaluation and management of inpatient [facility]-Medical Surgical 2 Start: 08-25-2022 Non-patient / Non-visit MD Haroldo Lennon [facility] Inpatient Physicians Start: 08-25-2022 observation encounter [facility] Work Phone: Start: 08-12-2022 Telephone encounter Haroldo brumfield MD Work Phone: [facility] [place] Comment on above: Patient Update Start: 07-29-2022 End: 07-29-2022 Patient encounter procedure Dary Dow APRN.CORE MACHINE TENDER Work Phone: Internal [facility] [place] Comment on above: OLIVA on CPAP (Primary Dx); Chronic neck pain; Restless leg syndrome; Erectile dysfunction due to arterial insufficiency; Encounter to establish care with new doctor Start: 06-06-2022 End: 06-06-2022 ambulatory [facility] Work Phone: Start: 06-06-2022 End: 06-06-2022 Patient encounter procedure [facility] Start: 05-16-2022 Telephone encounter Xavier Hampton DO Work Phone: [facility] Comment on above: VBC Start: 01-27-2022 End: 01-27-[address] Zackary Carlos Work Phone: [facility] Start: 01-14-2022 End: 01-14-[address] Zackary Carlos Work Phone: [facility] Internal Medicine Start: 12-14-2021 Refill Xavier vanegas DO Work Phone: [facility] Comment on above: Refill Request Start: 01-24-2021 End: 01-24-2021 Telephone encounter Xavier Hampton DO Work Phone: Internal [facility] Comment on above: Medicare Wellness Ex am Start: 11-23-2020 End: 11-23-2020 Telephone encounter Xavier Hampton Work Phone: [facility] Comment on above: Patient Update Start: 11-19-2020 End: 11-19-2020 Patient encounter procedure Cristofer Weber Work Phone: [facility] Start: 08-28-2020 End: 08-28-2020 Refill Xavier Hampton Work Phone: [facility] Comment on above: Refill Request Start: 07-20-2020 End: 07-20-2020 Telephone encounter Xavier Hampton Work Phone: [facility] Comment on above: LMTCB Start: 07-19-2020 End: 07-19-2020 Patient encounter procedure Xavier Hampton Work Phone: [facility] Comment on above: Neck pain (Primary D x); Anxiety Start: 07-18-2020 End: 07-18-2020 Telephone encounter Xavier Hampton Work Phone: [facility] Comment on above: Medication Request Start: 06-14-2020 End: 06-14-2020 Telephone encounter Xavier Hampton Work Phone: [facility] Comment on above: Pre-op clearnce Start: 06-06-2020 End: 06-06-2020 Refill Xavier Hampton Work Phone: [facility] Start: 05-31-2020 End: 06-14-2020 Patient encounter procedure Xavier Hampton Work Phone: [facility] Comment on above: Cervical radiculopat [...] spine lumbosac ral 2/3 views Dary Croft APRN.CORE MACHINE TENDER Work Phone: Start: 09-01-2024 Adult depression screening assessment Haroldo Hollis MD Work Phone: Start: 08-16-2024 Urnls dip stick/tabl et rgnt auto w/o microscopy Dary Croft APRN.CNP Work Phone: Start: 07-30-2024 Urnls dip stick/tabl et rgnt auto w/o microscopy Haroldo Hollis MD Work Phone: Start: 07-20-2024 Urnls dip stick/tabl et rgnt auto w/o microscopy Dary Croft EXECUTIVE CHAIRMAN OF THE BOARD.CORE MACHINE TENDER Work Phone: Start: 09-24-2022 Computed tomography of abdomen and pelvis with contrast MD Haroldo Hollis Start: 08-24-2022 Plain chest X-ray Start: 08-17-2022 History of placement of stent for coronary artery disease History of coronary artery stent placement Ej Montano PUBLIC TRANSIT TROLLEY DRIVERMichaelC Comment on above: PTCA/GIUSEPPE Prox RCA Re [...] DTaP,Tdap,Td Vaccine (2 - Td or Tdap) [facility] Start: 05-12-2029 Colonoscopy COLONOSCOPY [facility] Start: 05-12-2029 COLORECTAL CANCER SCREENING COLORECTAL CANCER SCREENING [facility] Start: 05-12-2029 Screening for malign ant neoplasm of colon [facility] Start: 03-20-2028 Diabetes Screening Diabetes Screen[facility] Start: 07-13-2026 [facility] Start: 03-20-2026 Hepatitis B surface antibody level LDL Cholesterol [facility] Start: 03-17-2026 Annual PCP Team Customer Supply Chain Analyst lon Disease Visit Annual PCP Team Chronic Disease Visit [facility] Start: 12-13-2025 Annual PCP Team Customer Supply Chain Analyst lon Disease Visit Annual PCP Team Chronic Disease Visit [facility] Start: 11-06-2025 DIABETES SCREEN DIABETES SCREEN [facility] Start: 09-01-2025 Annual PCP Team Customer Supply Chain Analyst lon Disease Visit Annual PCP Team Chronic Disease Visit [facility] Start: 09-01-2025 Anxiety Screening Anxiety Screening [facility] Start: 09-01-2025 Covid-19 Vaccine ( season) Covid-19 Vaccine () [facility] Comment on above: Postponed from 04/17 (Declined at this time) Start: 09-01-2025 Depression Screening Depression Scre ening [facility] Start: 08-18-2025 End: 08-18-2025 Patient encounter procedure 08/18/2025 11:20 AM EST Office Visit [facility] [place] [address] [place] [phone] Haroldo Hollis MD [address] [place] [phone] MEDICARE wellness [facility] [place] Comment on above: MEDICARE wellness Start: 08-16-2025 Annual PCP Team Customer Supply Chain Analyst lon Disease Visit Annual PCP Team Chronic Disease Visit [facility] Start: 07-30-2025 Annual PCP Team Customer Supply Chain Analyst lon Disease Visit Annual PCP Team Chronic Disease Visit [facility] Start: 07-20-2025 Annual PCP Team Customer Supply Chain Analyst lon Disease Visit Annual PCP Team Chronic Disease Visit [facility] Start: 05-16-2025 Radionuclide imaging of perfusion of myocardium under exercise stress [facility] Start: 05-16-2025 End: 05-16-2025 Evaluation of diagnostic study results [facility] Start: 04-17-2025 Influenza vaccination Influenza Vacc ine (#1) [facility] Start: 03-18-2025 End: 06-17-2025 25-hydroxyvitamin D3 [Mass/volume] in Serum or Plasma VITAMIN D 25 HYDROXY Lab Routine Vitamin D deficiency Expected: 03/18/2025, Expires: 06/17/2025 [facility] Comment on above: Expected: 03/18/2025 , Expires: 06/17/2025 Start: 03-18-2025 End: 06-17-2025 CBC panel - Blood by Automated count COMPLETE BLOOD COUNT Lab Routine Primary hypertension Expected: 03/18/2025, Expires: 06/17/2025 [facility] Work Phone: Comment on above: Expected: 03/18/2025 , Expires: 06/17/2025 Start: 03-18-2025 End: 06-17-2025 Cobalamin (Vitamin B12) [Mass/volume] in Serum or Plasma VITAMIN B12 Lab Routine Vitamin B12 deficiency Expected: 03/18/2025, Expires: 06/17/2025 [facility] Comment on above: Expected: 03/18/2025 , Expires: 06/17/2025 Start: 03-18-2025 End: 06-17-2025 Comprehensive metabolic 2000 panel - Serum or Plasma COMPREHENSIVE METABOLIC PANEL Lab Routine Hyperlipidemia, unspecified hyperlipidemia type Expected: 03/18/2025, Expires: 06/17/2025 [facility] Comment on above: Expected: 03/18/2025 , Expires: 06/17/2025 Start: 03-18-2025 End: 06-17-2025 Lipid 1996 panel - Serum or Plasma LIPID PANEL, FASTING Lab Routine Hyperlipidemia, unspecified hyperlipidemia type Expected: 03/18/2025, Expires: 06/17/2025 [facility] Comment on above: Expected: 03/18/2025 , Expires: 06/17/2025 Start: 03-02-2025 End: 03-02-2025 Patient encounter procedure 03/02/2025 8:40 AM EDT Office Visit Internal Medicine [place] [address] [place], [place] [id number] Haroldo Hollis MD [address] [place] [address] 6 month follow-up [facility] Comment on above: 6 month follow-up Start: 01-31-2025 LIPID SCREEN LIPID SCREEN [facility] Start: 10-14-2024 Annual PCP Team Customer Supply Chain Analyst lon Disease Visit Annual PCP Team Chronic Disease Visit [facility] Start: 09-02-2024 End: 12-02-2024 25-hydroxyvitamin D3 [Mass/volume] in Serum or Plasma VITAMIN D 25 HYDROXY Lab Routine Vitamin D deficiency Expected: 09/02/2024, Expires: 12/02/2024 [facility] Comment on above: Expected: 09/02/2024 , Expires: 12/02/2024 Start: 09-02-2024 End: 12-02-2024 CBC panel - Blood by Automated count COMPLETE BLOOD COUNT Lab Routine Vitamin B12 deficiency Expected: 09/02/2024, Expires: 12/02/2024 [facility] Work Phone: Comment on above: Expected: 09/02/2024 , Expires: 12/02/2024 Start: 09-02-2024 End: 12-02-2024 Cobalamin (Vitamin B12) [Mass/volume] in Serum or Plasma VITAMIN B12 Lab Routine Vitamin B12 deficiency Expected: 09/02/2024, Expires: 12/02/2024 [facility] Comment on above: Expected: 09/02/2024 , Expires: 12/02/2024 Start: 09-02-2024 End: 12-02-2024 Comprehensive metabolic 2000 panel - Serum or Plasma COMPREHENSIVE METABOLIC PANEL Lab Routine Hyperlipidemia, unspecified hyperlipidemia type Expected: 09/02/2024, Expires: 12/02/2024 [facility] Comment on above: Expected: 09/02/2024 , Expires: 12/02/2024 Start: 09-02-2024 End: 12-02-2024 Lipid 1996 panel - Serum or Plasma LIPID PANEL BASIC Lab Routine Hyperlipidemia, unspecified hyperlipidemia type Expected: 09/02/2024, Expires: 12/02/2024 [facility] Comment on above: Expected: 09/02/2024 , Expires: 12/02/2024 Start: 09-01-2024 End: 09-01-2024 Patient encounter procedure 09/01/2024 8:00 AM EST Office Visit Internal Medicine [place] [address] [place], [place] [id number] Haroldo Hollis MD [address] [place], [place] [address] wellness check and review US kid/bladder Internal [facility] Comment on above: wellness check and r eview US kid/bladder Start: 08-22-2024 End: 08-22-2024 Patient encounter procedure 08/22/2024 11:30 AM EST Appointment Radiology [address] [place], [place] [id number] US KIDNEY/BLADDER Radiology Comment on above: US KIDNEY/BLADDER Start: 08-17-2024 Advance Directive Discussion Advance Directive Discussion [facility] Start: 07-17-2024 RSV Vaccine (1 - 1-d ose 60+ series) RSV Vaccine (1 - 1-dose 60+ series) [facility] Comment on above: Postponed from 02/13 (Declined at this time) Start: 07-17-2024 RSV Vaccine (1 - 1-d ose 75+ series) RSV Vaccine (1 - 1-dose 75+ series) [facility] Comment on above: Postponed from 02/13 (Declined at this time) Start: 07-16-2024 Annual PCP Team Customer Supply Chain Analyst lon Disease Visit Annual PCP Team Chronic Disease Visit [facility] Start: 06-02-2024 End: 06-02-2024 Patient encounter procedure 06/02/2024 10:20 AM EDT Office Visit Internal Medicine [place] [address] [place] [address] Haroldo Hollis MD [address] [place] [address] back pain Internal Medicine [facility] Comment on above: back pain Start: 04-17-2024 Covid-19 Vaccine () Covid-19 Vaccine () [facility] Start: 04-17-2024 Influenza vaccination Influenza Vacc ine (#1) [facility] Start: 03-09-2024 End: 03-09-2024 Patient encounter procedure 03/09/2024 3:00 PM EDT Appointment [facility] [address] [place] [id number] Tomasa Johnson MD [address] [place] [id number] colon [facility] Comment on above: colon Start: 02-26-2024 ANNUAL PCP TEAM GLASS TECHNICIAN/INSTALLER LON DISEASE VISIT ANNUAL PCP TEAM CHRONIC DISEASE VISIT [facility] Start: 02-26-2024 End: 02-26-2024 Patient encounter procedure 02/26/2024 9:20 AM EDT Office Visit Internal Medicine [place] [address] [place] [address] Dary Croft, EXECUTIVE CHAIRMAN OF THE BOARD.CORE MACHINE TENDER [address] [place] [address] 6 month follow up - Medicare Wellness Internal Medicine [place] Comment on above: 6 month follow up - Medicare Wellness Start: 11-23-2023 End: 02-22-2024 Cobalamin (Vitamin B12) [Mass/volume] in Serum or Plasma VITAMIN B12 BLOOD Lab Routine Vitamin B12 deficiency Expected: 11/23/2023, Expires: 02/22/2024 [facility] Work Phone: Comment on above: Expected: 11/23/2023 , Expires: 02/22/2024 Start: 10-30-2023 ANNUAL PCP TEAM GLASS TECHNICIAN/INSTALLER LON DISEASE VISIT ANNUAL PCP TEAM CHRONIC DISEASE VISIT [facility] Start: 10-30-2023 COVID-19 VACCINE (2 - Moderna series) COVID-19 VACCINE (2 - Moderna series) [facility] Comment on above: Postponed from 06/24 (Declined at this time) Postponed from 07/22 (Declined at this time) Start: 09-13-2023 Covid-19 Vaccine ( season) Covid-19 Vaccine ( season) [facility] Start: 08-29-2023 ANNUAL PCP TEAM GLASS TECHNICIAN/INSTALLER LON DISEASE VISIT ANNUAL PCP TEAM CHRONIC DISEASE VISIT [facility] Start: 08-17-2023 Advance Directive Discussion Advance Directive Discussion [facility] Start: 08-17-2023 Behavioral Health Screening Behavioral Health Screening [facility] Start: 07-29-2023 Urine microalbumin profile [facility] Comment on above: Postponed from 07/22 (Declined at this time) Start: 06-11-2023 DIABETES SCREEN DIABETES SCREEN [facility] Start: 04-17-2023 Influenza vaccination INFLUENZA (#1) [facility] Start: 01-31-2023 DIABETES SCREEN DIABETES SCREEN [facility] Start: 11-06-2022 End: 01-06-2023 Basic metabolic 2000 panel - Serum or Plasma [facility] Work Phone: Comment on above: Expected: 11/06/2022 , Expires: 01/06/2023 Start: 11-06-2022 End: 01-06-2023 CBC panel - Blood by Automated count [facility] Work Phone: Comment on above: Expected: 11/06/2022 , Expires: 01/06/2023 Start: 11-06-2022 End: 01-06-2023 Cobalamin (Vitamin B12) [Mass/volume] in Serum or Plasma [facility] Work Phone: Comment on above: Expected: 11/06/2022 , Expires: 01/06/2023 Start: 09-03-2022 Patient referral to dietitian [facility] Start: 08-26-2022 Patient discharge [facility] Start: 08-25-2022 Patient referral [facility] Work Phone: Start: 08-25-2022 Ambulation without limitation [facility] Start: 08-25-2022 Cardiac monitoring [facility] Start: 08-25-2022 Cardiac rehabilitati on - phase 1 [facility] Start: 08-25-2022 Cardiac rehabilitati on - phase 2 [facility] Start: 08-25-2022 Notification of physician [facility] Start: 08-25-2022 Patient discharge [facility] Start: 08-25-2022 Provision of activit y privileges [facility] Start: 08-25-2022 Systemic arterial pressure monitoring [facility] Start: 08-25-2022 Taking patient vital signs [facility] Start: 08-25-2022 Vascular disease ris k assessment [facility] Start: 08-25-2022 Vital signs measurements [facility] Start: 08-25-2022 End: 08-25-2022 [facility] Start: 08-25-2022 Admission procedure [facility] Start: 08-25-2022 Catheterization of vein [facility] Start: 08-25-2022 Medication not administered [facility] Start: 08-25-2022 Notification of physician [facility] Start: 08-25-2022 [facility] Start: 08-25-2022 Referral to jalousies installer [facility] Start: 08-25-2022 Assessment of risk o f venous thromboembolism [facility] Start: 08-25-2022 Insertion of cathete r into peripheral vein [facility] Start: 08-25-2022 Measuring intake and output [facility] Start: 08-25-2022 Oxygen therapy [facility] Start: 08-25-2022 Providing care accor ding to standard [facility] Start: 08-25-2022 Provision of activit y privileges [facility] Start: 08-25-2022 Tobacco use cessatio n education [facility] Start: 08-25-2022 [facility] Start: 08-25-2022 Following clinical pathway protocol [facility] Start: 08-25-2022 Verification routine [facility] Work Phone: Start: 08-25-2022 Admission procedure [facility] Start: 08-24-2022 Blood chemistry [facility] Work Phone: Start: 08-24-2022 End: 08-24-2022 [facility] Work Phone: Start: 08-17-2022 ADVANCE DIRECTIVE DISCUSSION ADVANCE DIRECTIVE DISCUSSION [facility] Start: 08-17-2022 DEPRESSION ASSESSMENT DEPRESSION [facility] Start: 04-17-2022 Influenza vaccination [facility] Start: 08-17-2021 ADVANCE DIRECTIVE DISCUSSION ADVANCE DIRECTIVE DISCUSSION [facility] Start: 08-17-2021 [facility] Start: 07-19-2021 ANNUAL PCP TEAM GLASS TECHNICIAN/INSTALLER LON DISEASE VISIT ANNUAL PCP TEAM CHRONIC DISEASE VISIT [facility] Start: 06-24-2021 COVID-19 VACCINE (2 - Moderna series) COVID-19 VACCINE (2 - Moderna series) [facility] Start: 05-31-2021 ANNUAL PCP TEAM GLASS TECHNICIAN/INSTALLER LON DISEASE VISIT ANNUAL PCP TEAM CHRONIC DISEASE VISIT [facility] Start: 05-31-2021 BP CONTROLLED (<130/80) BP CONTROLLE D (<130/80) [facility] Start: 2021 RSV Vaccine (1 - 1-d ose 75+ series) RSV Vaccine (1 - 1-dose 75+ series) [facility] Start: 01-31-2021 Hepatitis B surface antibody level LDL Cholesterol [facility] Start: 07-21-2020 SHINGRIX VACCINE (2 of 2) SHINGRIX VACCINE (2 of 2) [facility] Start: 09-10-2018 Adult depression screening assessment DEPRESSION SCREENING [facility] Start: 2011 ADVANCE DIRECTIVE DISCUSSION ADVANCE DIRECTIVE DISCUSSION [facility] Start: 07-22-2003 Urine microalbumin profile DTaP,Tdap,Td Vaccine (1 - Tdap) [facility] Start: 02-14-1996 Screening for malign ant neoplasm of colon [facility] Start: 1991 COLOGUARD (FIT-DNA) COLOGUARD (FIT-D NA) [facility] Start: [address] COLONOGRAPHY [facility] Start: 1991 FECAL OCCULT BLOOD FECAL OCCULT BLOO D [facility] Start: 1991 SIGMOIDOSCOPY SIGMOIDOSCOPY [facility] Start: 1965 Urine microalbumin profile DTAP,TDAP,TD (1 - Tdap) [facility] Start: 02-14-1964 Anxiety Screening Anxiety Screening [facility] Start: 02-14-1964 BP CONTROLLED (<130/80) BP CONTROLLE D (<130/80) [facility] Start: 02-14-1964 Depression Screening Depression Scre ening [facility] Start: 1958 COVID-19 VACCINE (1) COVID-19 VACCIN E (1) [facility] Start: 1951 COVID-19 VACCINE (1) COVID-19 VACCIN E (1) [facility] Start: 1946 COVID-19 VACCINE (#1) COVID-19 VACCI NE (#1) [facility] End: 05-31-2021 aPTT Coag (PPP) [Time] ACTIVATED PTT Lab Routine Neck pain Preoperative evaluation to rule out surgical contraindication Cervical radiculopathy Fatigue, unspecified type Benign prostatic hyperplasia with urinary obstruction Vitamin D deficiency Elevated fasting lipid profile Abnormal movements Elevated prostate specific antigen (PSA) Therapeutic drug monitoring 1 Occurrences starting 05/31/2020 until 05/31/2021 [facility] Comment on above: 1 Occurrences starti ng [...] monitoring 1 Occurrences starting 05/31/2020 until 05/31/2021 [facility] Comment on above: 1 Occurrences starti ng 05/31/2020 until 05/31/2021 Bacteria identified in Urine by Culture URINE CULTURE Microbiology Routine Dysuria 07/20/2024 9:42 AM [employer] [facility] Work Phone: Bacteria identified in Urine by Culture URINE CULTURE Microbiology Routine Dysuria 08/16/2024 9:36 AM [employer] [facility] Work Phone: End: 05-31-2021 CBC W Auto Differential panel - Blood CBC + DIFF Lab Routine Neck pain Preoperative evaluation to rule out surgical contraindication Cervical radiculopathy Fatigue, unspecified type Benign prostatic hyperplasia with urinary obstruction Vitamin D deficiency Elevated fasting lipid profile Abnormal movements Elevated prostate specific antigen (PSA) Therapeutic drug monitoring 1 Occurrences starting 05/31/2020 until 05/31/2021 [facility] Comment on above: 1 Occurrences starti ng [...] monitoring 1 Occurrences starting 05/31/2020 until 05/31/2021 [facility] Comment on above: 1 Occurrences starti ng 05/31/2020 until 05/31/2021 End: 05-31-2021 HEPATITIS PANEL, GENERAL HEPATITIS PANEL, GENERAL Lab Routine Neck pain Preoperative evaluation to rule out surgical contraindication Cervical radiculopathy Fatigue, unspecified type Benign prostatic hyperplasia with urinary obstruction Vitamin D deficiency Elevated fasting lipid profile Abnormal movements Elevated prostate specific antigen (PSA) Therapeutic drug monitoring 1 Occurrences starting 05/31/2020 until 05/31/2021 [facility] Comment on above: 1 Occurrences starti ng 05/31/2020 until 05/31/2021 Patient Education ED Hematuria [facility] Work Phone: Patient referral [facility] Work Phone: End: 05-31-2021 PT panel - Platelet poor plasma by Coagulation assay PROTHROMBIN TIME/PT Lab Routine Neck pain Preoperative evaluation to rule out surgical contraindication Cervical radiculopathy Fatigue, unspecified type Benign prostatic hyperplasia with urinary obstruction Vitamin D deficiency Elevated fasting lipid profile Abnormal movements Elevated prostate specific antigen (PSA) Therapeutic drug monitoring 1 Occurrences starting 05/31/2020 until 05/31/2021 [facility] Comment on above: 1 Occurrences starti ng 05/31/2020 until 05/31/2021 End: 01-18-2021 SARS-COVID VACCINE 1ST DOSE APPT SARS-COVID VACCINE 1ST DOSE APPT Procedures Routine 1 Occurrences starting 11/19/2020 until 01/18/2021 [facility] Comment on above: 1 Occurrences starti ng 11/19/2020 until 01/18/2021 Troponin I measurement [facility] Work Phone: End: 05-31-2021 Urinalysis complete panel - Urine URINALYSIS, WITH MICROSCOPIC Lab Routine Neck pain Preoperative evaluation to rule out surgical contraindication Cervical radiculopathy Fatigue, unspecified type Benign prostatic hyperplasia with urinary obstruction Vitamin D deficiency Elevated fasting lipid profile Abnormal movements Elevated prostate specific antigen (PSA) Therapeutic drug monitoring 1 Occurrences starting 05/31/2020 until 05/31/2021 [facility] Comment on above: 1 Occurrences starti ng 05/31/2020 until 05/31/2021 Heart [facility] End: 09-18-2025 US Kidney - bilateral and Urinary bladder US KIDNEY/BLADDER Radiology Routine Urinary tract infection without hematuria, site unspecified 1 Occurrences starting 08/19/2024 until 09/18/2025 [facility] Work Phone: Comment on above: 1 Occurrences starti ng 08/19/2024 until 09/18/2025 US Kidney - bilatera l and Urinary bladder US KIDNEY/BLADDER Radiology Routine Urinary tract infection without hematuria, site unspecified 08/22/2024 11:34 AM EST [facility] Work Phone: [facility] Immunizations Immunization Date Immunization Notes Care Provider [facility] 09-01-2024 influenza, high dose seasonal, preservative-free Haroldo Hollis MD Work Phone: [facility] 09-01-2024 influenza virus vacc ine, unspecified formulation Haroldo Hollis MD Work Phone: [facility] 05-14-2023 influenza (aIIV4) vaccine, age 65+ yr, quadrivalent, PF (FLUAD QUAD) Haroldo Hollis MD Work Phone: [facility] Work Phone: 05-14-2023 zoster vaccine recombinant Haroldo Hollis MD Work Phone: [facility] Work Phone: 05-14-2023 influenza virus vacc ine, unspecified formulation Haroldo Hollis MD Work Phone: [facility] 06-18-2022 Influenza, high dose seasonal Dr. Haroldo Hollis MD Work Phone: [facility] 06-18-2022 influenza, high dose seasonal, preservative-free MD Haroldo Hollis [facility] 06-18-2022 influenza, high-dose , quadrivalent vaccine (FLUZONE HIGH DOSE QUADRIVALENT) Dary Older EXECUTIVE CHAIRMAN OF THE BOARD.CORE MACHINE TENDER Work Phone: [facility] 05-27-2021 Covid (Moderna) MD Haroldo Hollis [facility] 05-27-2021 influenza, injectabl e, quadrivalent, contains preservative Dary Older EXECUTIVE CHAIRMAN OF THE BOARD.CORE MACHINE TENDER Work Phone: [facility] 05-26-2020 influenza, high-dose , quadrivalent vaccine (FLUZONE HIGH DOSE QUADRIVALENT) [facility] 05-26-2020 pneumococcal polysaccharide vaccine, 23 valent [facility] 05-26-2020 zoster vaccine recombinant [facility] 06-09-2019 influenza nasal, unspecified formulation [facility] 06-09-2019 influenza, high dose seasonal, preservative-free [facility] 06-09-2019 pneumococcal conjuga te vaccine, 13 valent [facility] 05-06-2018 influenza, high dose seasonal, preservative-free [facility] 06-09-2017 influenza, high dose seasonal, preservative-free [facility] Work Phone: 06-28-2016 influenza, high dose seasonal, preservative-free [facility] Work Phone: 07-14-2014 influenza, seasonal, injectable, preservative free [facility] Work Phone: 06-16-2011 pneumococcal polysaccharide vaccine, 23 valent [facility] DO Work Phone: [facility] 07-21-2003 TD(adult) unspecifie d formulation Dary Older EXECUTIVE CHAIRMAN OF THE BOARD.CORE MACHINE TENDER Work Phone: [facility] Payers Date Payer Category Payer Self-pay [id number] 2019 Medicare [id number] 2019 Medicare HUMANA MEDICARE HUMANA MEDICARE PPO [id number] 2019-Present [phone] [place] [address] PPO [id number] 2019 Medicare (Managed Care) HUMANA M EDJEAN PAULRE [id number] 2019 Medicare [id number] Unknown [id number] Unknown [id number] Unknown [id number] Unknown [id number] Unknown [id number] Unknown [id number] Unknown [id number] Unknown [id number] Unknown [id number] Social History Date Type Detail Facility Start: 05-31-2020 End: 07-05-2024 Tobacco smoking status NHIS Former smoker [facility] History of tobacco use Cigarette Smoker [facility] Start: 05-31-2020 End: 02-02-2023 Cigarettes smoked current (pack per day) - Reported [facility] Work Phone: Start: 05-31-2020 End: 07-20-2024 Tobacco use and exposure Never used [facility] Start: 05-31-2020 End: 03-17-2025 Alcohol intake Current drinker of alcohol (finding) [facility] Start: 09-10-2017 Alcohol Comment wine occasional [facility] Start: 1945 Sex Assigned At Not on file [facility] Exposure to SARS-CoV -2 (event) Not sure [facility] Start: 01-14-2022 End: 01-30-2023 Tobacco smoking status MEIS Unknown if ever smoked [facility] Start: 1945 Sex Assigned At Male [facility] History of tobacco use Current smoker [facility] Start: 07-29-2022 Tobacco Comment Quit over 30 years ago [facility] Start: 07-29-2022 Alcohol Comment occasional mixed drink-twice a week [facility] Start: 02-02-2023 End: 02-25-2023 Alcohol Use Disorder Identification Test - Consumption [AUDIT-C] [facility] Work Phone: How often to you hav e a drink containing alcohol? 2-3 time sa week [facility] Work Phone: How many standard dr inks containing alcohol do you have on a typical day? 1 or 2 [facility] Work Phone: How often do you hav e 6 or more drinks on 1 occasion? Never [facility] Work Phone: Start: 07-18-2012 Adult Depression Screening Assessment 0 [facility] Work Phone: Medical Equipment Procedure Code Equipment Code Equipment Original Text Equipment Identifier Dates Colonoscopy MARKER,ENDO SPOT CIELO INK FDA Start: 05-11-2024 Colonoscopy Ligation clip, metallic [id number] FDA Start: 07-06-2024 Colonoscopy MARKER,ENDO SPOT CIELO INK FDA Start: 05-11-2024 [id number], [id number] Start: 09-03-2011 Comment on above: For penile intracave rnosal injections for ED For use with B12 inj ections Drug-eluting coronary artery stent, non-bioabsorbabl [id number] FDA Start: 08-25-2022 Functional Status Date Assessment Result Facility 08-26-2022 Functional status Activity Abili ty Unable to Assess [facility] Work Phone: 08-25-2022 Functional status Patient Activity Bedres t [facility] Work Phone: Mental Status Date Assessment Result Facility 08-26-2022 Cognitive function Voice/Name [facility] Work Phone: 08-24-2022 Cognitive function Voice/Name [facility] Work Phone: Clinical Notes 06-16-2012 to 05-16-2025 Monserrat Haynes CPhT - 04/05/2025 2:56 PM EDTPatient InstructionsHaroldo Hollis MD - 03/17/2025 10:43 AM Monserrat Kenney CPhT - 12/21/2024 10:11 AM EDTPatient InstructionsPatient Instructions Note Date & Type Note Facility 05-16-2025 Progress note [facility] 05-12-2025 Note HNO ID: [id number] Author: ?, ?, ? Service: ? Author [...] Lexienatividad Nelson May 12, 2025 9:45 AM [facility] 05-12-2025 Note Patient Outreach (NICK TNAV) LUÍS HERNANDEZ ([id number]) 1945 M EXC Date Time Provider Department 05/12/25 HAROLDO HOLLIS During your visit today, we recorded the following information about you: eLxie Vail 05/12/2025 9:47 AM Signed POPULATION HEALTH NAVIGATION OUTREACH Action/I Patient outreach for HM due; flu Sent mcm to schedule Reason for Outreach Care Gap/HCC or Scheduling Wellness Visits Care Gaps due: Flu Vaccine Patient Contacted: Unable or unnecessary to reach patient: CyActive message sent Navigation Signature: Lexie Nelson May [...] 30-34.9 [E66.811] 09/01/2024 Coronary artery disease involving wilton jones*09/01/2024 Colon polyposis [K63.5] 05/11/2024 Myalgia due to statin [M79.10, T46.6X5A] 03/17/2025 Encounter Status:Closed by LEXIE VAIL on 05/12/25 [facility] 04-05-2025 Note HNO ID: [id number] Author: MONSERRAT HAYNES CPhT Service: ? Author Type: Bottoming Room Supervisor Type: Progress Notes Filed: 04/05/2025 14:58 Note Text: Patient is identified through a medication adherence outreach initiative based on pharmacy claims data from: [employer] Medication Adherence Category: Statins First Review Attribution [...] Haynes CPhT [facility] Based Care [facility] Team [facility] [facility] 04-05-2025 History of Present illness Narrative Patient is identified through a medication adherence outreach initiative based on pharmacy claims data from: [employer] Medication Adherence Category: Statins First Review Attribution [...] Care Pharmacy Team documented in this encounter [facility] 04-05-2025 Note Patient Outreach ( POHE) LUÍS HERNANDEZ ([id number]) 1945 M EXC Date Time Provider Department 04/05/25 HAROLDO HOLLIS [facility] During your visit today, we recorded the following information about you: Monserrat Haynes CPhT 04/05/2025 2:58 PM Signed Patient is identified through a medication adherence outreach initiative based on pharmacy claims data from: [employer] Medication Adherence Category: Statins First Review Attribution [...] 30-34.9 [E66.811] 09/01/2024 Coronary artery disease involving wilton jones*09/01/2024 Colon polyposis [K63.5] 05/11/2024 Myalgia due to statin [M79.10, T46.6X5A] 03/17/2025 Encounter Status:Closed by MONSERRAT HAYNES on 04/05/25 [facility] 03-17-2025 Instructions Haroldo Hollis MD - 03/17/2025 11:05 AM EDT FASTING BLOOD WORK TOMORROW MORNING. documented in this encounter [facility] 03-17-2025 Note HNO ID: [id number] Author: HAROLDO HOLLIS MD Service: ? Author [...] I, Bmi 30-34.9 Coronary Artery Disease Involving [place] Coronary Artery of [place] Heart Without Angina Pectoris Colon Polyposis Social [...] 25 HYDROXY 6. 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 7. Myalgia due to statin - ICD9: 729.1, E942.2, ICD10: M79.10, T46.6X5A - Statins not tolerated: Haroldo Hollis MD [facility] 03-17-2025 History of Present illness Narrative Subjective [...] I, Bmi 30-34.9 Coronary Artery Disease Involving [place] Coronary Artery of [place] Heart Without Angina Pectoris Colon Polyposis Social [...] 25 HYDROXY 6. 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 7. Myalgia due to statin - ICD9: 729.1, E942.2, ICD10: M79.10, T46.6X5A - Statins not tolerated: Haroldo Hollis MD documented in this encounter [facility] 12-21-2024 Note HNO ID: [id number] Author: MONSERRAT HAYNES CPhT Service: ? Author Type: Bottoming Room Supervisor Type: Progress Notes Filed: 12/21/2024 10:15 Note Text: Patient is identified through a medication adherence outreach initiative based on pharmacy claims data from: [employer] Medication Adherence Category: Statins First Review Attribution [...] Haynes CPhT Value Based Care Pharmacy Team [facility] 12-21-2024 History of Present illness Narrative Patient is identified through a medication adherence outreach initiative based on pharmacy claims data from: [employer] Medication Adherence Category: Statins First Review Attribution [...] Care Pharmacy Team documented in this encounter [facility] 12-21-2024 Note Patient Outreach ( POHE) LUÍS HERNANDEZ ([id number]) 1945 M EXC Date Time Provider Department 12/21/24 HAROLDO HOLLISOHDharmesh During your visit today, we recorded the following information about you: Monserrat Haynes CPhT 12/21/2024 10:15 AM Signed Patient is identified through a medication adherence outreach initiative based on pharmacy claims data from: [employer] Medication Adherence Category: Statins First Review Attribution [...] prescriber (non-[facility]) for refills Monserrat Haynes CPhT [facility] Team Allergies As of Date: 12/21/2024 Noted Allergy Reaction PERCOCET (OXYCODONE-ACETAMINOPHEN) 2 5 - Intolerance Comments: Anxiety and slurred words CODEINE 07/22/2005 2 - Rash Comments: itch, nightmares VICODIN (HYDROCODONE-ACETAMINOPHE*02/23/20 09 2 - Rash 9 - Itching Date Reviewed: 12/13/2024 Reviewed by: Dary Croft, EXECUTIVE CHAIRMAN OF THE BOARD.CORE MACHINE TENDER - Fully Assessed Reason for Visit: Allied [...] 30-34.9 [E66.811] 09/01/2024 Coronary artery disease involving wilton jones*09/01/2024 Colon polyposis [K63.5] 05/11/2024 Encounter Status:Closed by MONSERRAT HAYNES on 12/21/24 [facility] 12-13-2024 Telephone encounter Note PATIENT NOTIFIED OF INFORMATION [facility] 12-13-2024 Miscellaneous Notes PATIENT NOTIFIED OF INFORMATION documented in this encounter [facility] 12-13-2024 History of Present illness Narrative Radiology [...] PATIENT PRESENTS WITH AN IMPLANTABLE OR ATTACHED VEHICLE REFINISHER: No RADIOLOGY DEPARTMENT: General X-ray: Exam(s) Completed: Spine X-Ray(s): Lumbar AP / LAT / L5-S1 PERIPHERAL IV DATA: Not applicable SIGNED BY: RT Lyssa(Lorraine) December 13, 2024 2:38 PM documented in this encounter [facility] 12-13-2024 Note HNO ID: [id number] Author: NIRMALA CHING RT(R) Service: Radiology Author [...] PATIENT PRESENTS WITH AN IMPLANTABLE OR ATTACHED VEHICLE REFINISHER: No RADIOLOGY DEPARTMENT: General X-ray: Exam(s) Completed: Spine X-Ray(s): Lumbar AP / LAT / L5-S1 PERIPHERAL IV DATA: Not applicable SIGNED BY: RT Lyssa(R) December 13, 2024 2:38 PM [facility] 12-13-2024 Note HNO ID: [id number] Author: DARY CROFT APRN.CORE MACHINE TENDER Service: ? Author Type: Nurse Practitioner Type: Progress Notes Filed: 12/13/2024 11:52 Note Text: CC: Patient presents with: Back Pain: RT lower into middle x 4 days HPI Recording using [employer] software for draft documentation of the visit was discussed with the patient/authorized service support representative; all questions welcomed and answered. Patient/authorized service support representative agreed to proceed Luís is a [...] infarction) (HCC) 08/29/2022 OLIVA on CPAP 07/29/2022 [facility] Restless legs syndrome (RLS) Stented [...] Knee replacement, total lt COLONOSCOPY 05/12/2019 in [place], repeat 3-5 years COLONOSCOPY SCREENING 2003 COLONOSCOPY STOMA W/BIOPSY SINGLE/MULTIPLE 06/2024 CORONARY STENT EA VESSEL 08/25/2022 PTCA/GIUSEPPE Prox. RCA Resolute Sycamore 4 x 18 mm LAMINECTOMY,CERVICAL 07/04/2020 NASAL/SPHENOID [...] CARBONATE/VITAMIN D3 ( (more content not included)... [facility] 12-13-2024 History of Present illness Narrative Images from the original note were not included. CC: Patient presents with: Back Pain: RT lower into middle x 4 days HPI Recording using ambient [employer] software for draft documentation of the visit was discussed with the patient/authorized service support representative; all questions welcomed and answered. Patient/authorized service support representative agreed to proceed Luís is a [...] infarction) (HCC) 08/29/2022 OLIVA on CPAP 07/29/2022 [facility] Restless legs syndrome (RLS) Stented [...] Knee replacement, total lt COLONOSCOPY 05/12/2019 in [place], repeat 3-5 years COLONOSCOPY SCREENING 2003 COLONOSCOPY [...] Patient agreeable to treatment plan. Dary Croft APRN.CORE MACHINE TENDER documented in this encounter [facility] 12-13-2024 Instructions Dary Croft APRN.MICHELLE - 12/13/2024 [...] This has been sent to your preferred [facility] pharmacy in [place]. - Take prednisone with food to avoid [...] for further evaluation. documented in this encounter [facility] 09-01-2024 Instructions Haroldo Hollis MD - 09/01/2024 [...] review all the medicines you take, even rlkz-drd-nxeaxtr medicines. As you get older, the way [...] certain medical conditions. documented in this encounter [facility] 09-01-2024 Note HNO ID: [id number] Author: HAROLDO HOLLIS MD Service: ? Author Type: Physician Type: Progress Notes Filed: 09/01/2024 09:42 Note Text: This note was created using [employer]. Subjective Luís Hernandez is a 79 year [...] I, Bmi 30-34.9 Coronary Artery Disease Involving [place] Coronary Artery of [place] Heart Without Angina Pectoris Colon Polyposis Social [...] FREE, AGE 65+ (more content not included)... [facility] 09-01-2024 History of Present illness Narrative This note was created using [employer]. Subjective Luís Hernandez is a 79 year [...] I, Bmi 30-34.9 Coronary Artery Disease Involving [place] Coronary Artery of [place] Heart Without Angina Pectoris Colon Polyposis Social [...] PANEL BASIC 12. 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 Rebekah Ly, ophthalmology. Dr. Mihaela Dunn, urology. Dr. Henri Hooper, cardiology. Dr. Malik Bower, ENT. Dr. Alyssa Stack, [facility] Dermatology. Dr. Hermes Meeks, [...] BMI 32.06 kg/(m^2) documented in this encounter [facility] 09-01-2024 Note HNO ID: [id number] Author: HAROLDO HOLLIS MD Service: ? Author [...] General (Internal Medicine) Dary Croft APRN.MICHELLE as Dba Developer (Internal Medicine) Outside specialists seen: Dr. Rebekah Ly, ophthalmology. Dr. Mihaela Dunn, urology. Dr. Henri Hooper, cardiology. Dr. Malik Bower, ENT. Dr. Alyssa Stack, [facility] Dermatology. Dr. Hermes Meeks, [...] benefit of weight loss. BMI 32.06 kg/(m2) [facility] 08-22-2024 History of Present illness Narrative Radiology [...] PATIENT PRESENTS WITH AN IMPLANTABLE OR ATTACHED VEHICLE REFINISHER: No RADIOLOGY DEPARTMENT: Ultrasound PERIPHERAL IV DATA: Not applicable SIGNED BY: Joy Urrutia RDMS RVShirley August 22, 2024 11:53 AM documented in this encounter [facility] 08-22-2024 Note HNO ID: [id number] Author: JOY URRUTIA RDMS Service: ? Author Type: Tour Sales Representative Type: Progress Notes Filed: 08/22/2024 11:53 Note [...] PATIENT PRESENTS WITH AN IMPLANTABLE OR ATTACHED VEHICLE REFINISHER: No RADIOLOGY DEPARTMENT: Ultrasound PERIPHERAL IV DATA: Not applicable SIGNED BY: Joy Urrutia RDMS RVT August 22, 2024 11:53 AM [facility] 08-19-2024 Telephone encounter Note Patient notified of results and provider's instructions. Patient verbalizes understanding. Taylor Perez RN [facility] 08-19-2024 Miscellaneous Notes Patient notified of results [...] about a month ago? Patient's pharmacy is [facility]. Please review and advise, Taylor Perez RN documented in this encounter [facility] 08-19-2024 Telephone encounter Note ASSESSMENT/PLAN: 1. Urinary tract infection without hematuria, site unspecified - ICD9: 599.0, ICD10: N39.0 - AMOXICILLIN 875 MG TABLET - KIDNEY/BLADDER Schedule follow up with results and annual wellness visit. Haroldo Hollis MD [facility] 08-18-2024 Telephone encounter Note Patient calls back and states that he noticed blood with clots in his urine. Patient asking about urine culture results and what next steps are? Patient continues with burning with urination. Patient's asking if issues could be from colonoscopy which was about a month ago? Patient's pharmacy is [facility]. Please review and advise, Taylor Perez RN [facility] 08-16-2024 Note HNO ID: [id number] Author: DARY CROFT APRN.CORE MACHINE TENDER Service: ? Author Type: Nurse Practitioner Type: [...] infarction) (HCC) 08/29/2022 OLIVA on CPAP 07/29/2022 [facility] Restless legs syndrome (RLS) Stented [...] Knee replacement, total lt COLONOSCOPY 05/12/2019 in [place], repeat 3-5 years COLONOSCOPY SCREENING 2003 CORONARY [...] BMI 30.84 k (more content not included)... [facility] 08-16-2024 History of Present illness Narrative CC: [...] infarction) (HCC) 08/29/2022 OLIVA on CPAP 07/29/2022 [facility] Restless legs syndrome (RLS) Stented [...] Knee replacement, total lt COLONOSCOPY 05/12/2019 in [place], repeat 3-5 years COLONOSCOPY SCREENING 2003 CORONARY STENT EA VESSEL 08/25/2022 PTCA/GIUSEPPE Prox. RCA Resolute Sycamore 4 x 18 mm LAMINECTOMY,CERVICAL 07/04/2020 NASAL/SPHENOID [...] Patient agreeable to treatment plan. Dary Croft APRN.CORE MACHINE TENDER documented in this encounter [facility] 07-30-2024 Note HNO ID: [id number] Author: HAROLDO OHLLIS MD Service: ? Author Type: Physician Type: [...] urology for follow up. Haroldo Hollis MD [facility] 07-30-2024 History of Present illness Narrative This note was created using [employer]. Subjective Luís Hernandez is a 79 year [...] Haroldo Hollis MD documented in this encounter [facility] 07-30-2024 Instructions Haroldo Hollis MD - 07/30/2024 11:[address] Dunn for follow up. documented in this encounter [facility] 07-20-2024 Instructions Dary Croft APRN.MICHELLE - 07/20/2024 [...] you finish treatment. documented in this encounter [facility] 07-20-2024 Note HNO ID: [id number] Author: DARY CROFT APRN.CORE MACHINE TENDER Service: ? Author Type: Nurse Practitioner Type: [...] infarction) (HCC) 08/29/2022 OLIVA on CPAP 07/29/2022 [facility] Restless legs syndrome (RLS) Stented coronary artery [...] Knee replacement, total lt COLONOSCOPY 05/12/2019 in [place], repeat 3-5 years COLONOSCOPY SCREENING 2003 CORONARY [...] sounds. Abdominal: Palpatio (more content not included)... [facility] 07-20-2024 History of Present illness Narrative CC: [...] NSTEMI (non-ST elevated myocardial infarction) (HCC) 08/29/2022 OILVA on CPAP 07/29/2022 [facility] Restless legs syndrome (RLS) Stented coronary artery [...] Knee replacement, total lt COLONOSCOPY 05/12/2019 in [place], repeat 3-5 years COLONOSCOPY SCREENING 2003 CORONARY [...] Patient agreeable to treatment plan. Dary Croft APRN.CORE MACHINE TENDER documented in this encounter [facility] 07-11-2024 Note HNO ID: [id number] Author: JIGAR SEALS MA Service: ? Author Type: Guard Lieutenant Type: Progress Notes Filed: 07/11/2024 12:09 Note Text: POPULATION HEALTH NAVIGATION OUTREACH Action/FYI msg to schedule wellness, follow up, influenza Reason for Outreach Care Gap/HCC or Scheduling Wellness Visits Care Gaps due: Medicare Annual Wellness Visit Follow-up Appointment Flu Vaccine Patient Contacted: Unable or unnecessary to reach patient: Unable to leave message [employer] message sent Navigation Signature: Jigar Seals MA July 11, 2024 12:09 PM [facility] 07-11-2024 History of Present illness Narrative POPULATION HEALTH NAVIGATION OUTREACH Action/FYI msg to schedule wellness, follow up, influenza Reason for Outreach Care Gap/HCC or Scheduling Wellness Visits Care Gaps due: Medicare Annual Wellness Visit Follow-up Appointment Flu Vaccine Patient Contacted: Unable or unnecessary to reach patient: Unable to leave message [employer] message sent Navigation Signature: Jigar Seals MA July 11, 2024 12:09 PM documented in this encounter [facility] 07-11-2024 Note Patient Outreach (NICK DYERAV) LUÍS HERNANDEZ ([id number]) 1945 M EXC Date Time Provider Department [...] to reach patient: Unable to leave message [employer] message sent Navigation Signature: Jigar Seals MA [...] Encounter Status:Closed by JIGAR SEALS on 07/11/24 [facility] 07-06-2024 Note [facility] [address] [place] [id number] History Physical Exam 07/06/24 0953 MR#: [id number] Acct: [id number] Name: LUÍS HERNANDEZ Rep #: [id number] : 1945 79 From: Devin Friend PCP: Dr. Haroldo Hollis MD Status:[facility] Location: [place] [address] History and Physical Date of Admission: 07/06/24 [...] reports that he was referred by Dr Croko following his colonoscopy. Reports that he is [...] Appearance: average body habitus and well nourished [facility] Head: normal to inspection Ears: hearing grossly [...] Haroldo Hollis MD; Devin Meeks DO Signed [facility] 06-01-2024 Telephone encounter Note Spoke with patient. Given message from provider's office. Patient verbalizes understanding. Appointment scheduled. Isaias River RN [facility] 06-01-2024 Miscellaneous Notes Spoke with patient. Given message from provider's office. Patient verbalizes understanding. Appointment scheduled. Isaias River RN Schedule appointment here first for evaluation. Patient calling, would like a recommendation on for a emr specialist. States he has been having middle back pain for 1 month and would like to see someone. Please advise. documented in this encounter [facility] 06-01-2024 Telephone encounter Note Schedule appointment here first for evaluation. [facility] 06-01-2024 Telephone encounter Note Patient calling, would like a recommendation on for a emr specialist. States he has been having middle back pain for 1 month and would like to see someone. Please advise. [facility] 05-12-2024 Telephone encounter Note Spoke to [facility]/[place], pharmacy never received RX for Cyanocobalamin, asking for new RX to be sent. Alyssa Munoz LPN [facility] 05-12-2024 Miscellaneous Notes Spoke to [facility]/[place], pharmacy [...] 2024 9:30 AM documented in this encounter [facility] 05-12-2024 Telephone encounter Note Prescription Refill Information [...] Cathi Villafuerte May 12, 2024 9:30 AM [facility] 04-15-2024 Telephone encounter Note Notified via CS-Keys. [facility] 04-15-2024 Miscellaneous Notes Notified via CS-Keys. Canceled follow-up/Medicare Wellness in February needs rescheduled [...] 2024 10:57 AM documented in this encounter [facility] 04-14-2024 Telephone encounter Note Canceled follow-up/Medicare Wellness in February needs rescheduled Dary Croft APRN.CORE MACHINE TENDER [facility] 04-13-2024 Telephone encounter Note Prescription Refill Information [...] Lauren Cee April 13, 2024 10:57 AM [facility] 01-26-2024 Telephone encounter Note Patient calls to report that he is going to have his colonoscopy done with Dr. Crook and requests referral be sent to [facility]. Faxed to [phone] per request. Angella Murillo RN [facility] 01-26-2024 Miscellaneous Notes Patient calls to report that he is going to have his colonoscopy done with Dr. Crook and requests referral be sent to [facility]. Faxed to [phone] per request. Angella Murillo RN documented in this encounter [facility] 11-26-2023 Telephone encounter Note Patient called in rescheduled his colonoscopy from 02-09 to 03-09-2024 due to being out of town. Patient has his bowel prep and instructions. [place] [facility] Work Phone: 11-26-2023 Miscellaneous Notes Patient called in rescheduled his colonoscopy from 02-09 to 03-09-2024 due to being out of town. Patient has his bowel prep and instructions. [place] X Cardiac clearance received. See scanned doc. Per jalousies installer patient to be off Brillinta for 7 days prior to colonoscopy. Patient notified. Patient scheduled 02/10/[address] Johnson in [place] [employer] K[employer]t Disabilities Services Officer Cardiac clearance faxed see scanned doc 02/10/[address] Johnson patient to seek cardiac clearance prior to procedure. Patient sees [facility] Dr. Hooper. Dr. Johnson requesting clearance for holding Brillinta as well. Patient aware of steps needed to be taken prior to proceeding and is aware he will be given a call in regards to Brillinta once clearance is received [employer] Disabilities Services Officer documented in this encounter [facility] 11-25-2023 Miscellaneous Notes PA completed and this [...] Name: [employer] Phone number: [phone] Patient ID number: ID [id number] [id number] Pharmacy Name: [facility] Telephone number: [phone] Angella Murillo RN documented in this encounter [facility] 11-25-2023 Miscellaneous Notes Patient's returned call and states they are using [facility] in [place]. Script pended to reflect this. Thank you. Left message for Patient to call & verify pharmacy. Alyssa Munoz LPN [facility] [place] pended, is this correct? Dary Croft APRN.CORE MACHINE TENDER Spoke with pt and information listed below given. Pt verbalizes understanding. Pt would like to try 1 injection twice a month ( every 2 weeks). Send in new rx to the pharmacy. ----- Message from Dary Croft APRN.CORE MACHINE TENDER sent at 11/25/2023 8:59 AM EDT ----- Please let the patient know his B12 was in the mid range of normal. We can increase B12 injections to twice a month if he would like to however unclear if there will be any benefit with this. Dary Croft APRN.CORE MACHINE TENDER documented in this encounter [facility] 11-25-2023 Telephone encounter Note X [facility] 11-23-2023 Miscellaneous Notes Patient notified, verbalized understanding. Roverto Long MA Recommend checking B12 level first Dary Croft APRN.CORE MACHINE TENDER Pt. is taking Vit B 12 1 dose monthly. Asking if he can take it more often? He is getting good results but it wears off. Please advise. documented in this encounter [facility] 10-28-2023 Telephone encounter Note Cardiac clearance received. See scanned doc. Per jalousies installer patient to be off Brillinta for 7 days prior to colonoscopy. Patient notified. Patient scheduled 02/10/[address] Johnson in [place] [employer] K[employer]t Disabilities Services Officer [facility] 10-20-2023 Telephone encounter Note Cardiac clearance faxed see scanned doc [facility] 10-20-2023 Telephone encounter Note 02/10/[address] Johnson patient to seek cardiac clearance prior to procedure. Patient sees [facility] Dr. Hooper. Dr. Johnson requesting clearance for holding Brillinta as well. Patient aware of steps needed to be taken prior to proceeding and is aware he will be given a call in regards to Brillinta once clearance is received [employer] K[employer]t Disabilities Services Officer [facility] 10-15-2023 History of Present illness Narrative This note was created using [employer]. Subjective Luís Hernandez is a 78 year [...] Haroldo Hollis MD documented in this encounter [facility] 10-15-2023 Miscellaneous Notes Triage Protocol Recommends: PCP [...] good 13. MEDICAL HISTORY: denies Protocols used: [id number] documented in this encounter [facility] 08-20-2023 Discharge summary Note Date/Time August 20, 2023 11:23am [facility] [address] [place] [address] [address] [place] [address] / REHABILITATION SERVICES DISCHARGE SUMMARY MR#: [id number] Acct: [id number] Name: LUÍS HERNANDEZ Rep #: [id number] [...] please feel free to call me at [phone]. Thank you for the referral of thispatient. Sincerely, Ortiz Jean DPT, KOSTAS, CSCS Balance/Gait/Functional tests Balance/Special Test Scores Oswestry Neck Score: 11 Improvement % Improvement: 50 <Electronically signed by KOSTAS Yancey DPT, CSCS> 08/20/23 1123 CC: FATMATA Dow; Dr. Haroldo Hollis MD ~ EBG Signed [facility] Work Phone: [phone]) [phone] History of Present illness Narrative* Older, Dary, EXECUTIVE CHAIRMAN OF THE BOARD.CORE MACHINE TENDER - 07/16/2023 2:38 PM EST CC: Patient [...] infarction) (HCC) 08/29/2022 OLIVA on CPAP 07/29/2022 [facility] Restless legs syndrome (RLS) Stented [...] care. Dary Dow APRN.CNP [facility] of Present illness Narrative* Haroldo Hollis [...] Z00.00 (primary diagnosis) See wellness note. 2. LOIVA on CPAP - ICD9: 327.23, V46.8, ICD10: [...] all Concerns with sexual function:Not at all [place] anxious, stressed, angry, irritable, lonely, isolated, or [...] misuse screening and counseling documented in this encounterAccess [facility] Instructions* Patient Instructions* Haroldo Hollis MD - 02/25/2023 2:50 PM EDT Advance Directive Forms Advanced Directives Forms (Lao) FORMS: [email or web address] INFORMATIONAL BROCHURE: [email or web address]/files/[email or web address]/patients-[email or web address]/inform ation/advance-[email or web address]?la=en Advance Directives (non-Lao) FORMS: [email or web address]/[email or web address]/adva nce-directives#forms-tab Please bring completed forms to your next appointment or email them to [email or web address]. Patient Resources How to Get Started Talking with Loved Ones about your Wishes at the End of Life [email or web address]/wp-content/uploads//ConversationProjec b-PrhuiOyzhexgGtr-Eqcnmnn.pdf How to Navigate Conversations with your Care [...] schedule this for you. documented [facility] encounterAccess [facility] Miscellaneous Notes* Telephone Encounter - Alyssa Munoz [...] advise. Alycia Schneider LPN documented in this encounterAccess [facility] History of Present illness Narrative* Haroldo Hollis MD - 10/29/2022 10:31 AM EDT This note was created using [employer]. Subjective Luís Hernandez is a 77 year [...] bothersome. Haroldo Hollis MD documented in this encounterAccess [facility]23 Miscellaneous Notes* Telephone Encounter - Taylor Perez [...] of Last Labs: 08/27/2022 documented in this encounterAccess [facility]02-[facility]-2023 Miscellaneous Notes* Telephone Encounter - Dary Dow [...] patient. Cande Sofia Pss documented in this encounterAccess [facility]01-[facility] History of Past illness Narrative* Problem Noted [...] of this encounter (statuses as of 10/29/2022) [facility] History of Past illness Narrative* Problem Noted [...] of this encounter (statuses as of 11/06/2022) [facility] History of Past illness Narrative* Problem Noted [...] of this encounter (statuses as of 02/26/2023) [facility] History of Past illness Narrative* Problem Noted [...] of this encounter (statuses as of 07/17/2023) [facility] History of Past illness Narrative* Problem Noted [...] of this encounter (statuses as of 10/15/2023) [facility] History of Past illness Narrative* Problem Noted [...] of this encounter (statuses as of 10/16/2023) [facility] History of Past illness Narrative* Problem Noted [...] of this encounter (statuses as of 11/23/2023) [facility] History of Past illness Narrative* Problem Noted [...] of this encounter (statuses as of 11/26/2023) [facility] History of Past illness Narrative* Problem Noted [...] of this encounter (statuses as of 11/26/2023) [facility]-13-[facility]23 Instructions* Patient Instructions* Haroldo Hollis MD - 08/29/2022 10:40 AM EST STOP DOXAZOSIN 4 MG. TAKE DOXAZOSIN 2 MG AT BEDTIME X 30 DAYS. YOU CAN STOP THIS IF BLOOD PRESSURE AND URINATION ARE GOOD. documented in this encounterAccess [facility] [place]01-[facility]23 History of Present illness Narrative* Haroldo Hollis MD - 08/29/2022 10:35 AM EST This note was created using [employer]. Subjective Transitional Care Management Progress Note The patients TCM visit was performed within the 7 days of discharge. Patient's Date of discharge: 08/26/2022 Date of initial coordinator contact after discharge: 08/27/2022 Discharge diagnosis: NSTEMI, HTN, hyperlipidemia. Medication review completed Yes Haroldo Hollis MD Provider Documentation: In follow-up of [...] CAPSULE Haroldo Hollis MD documented in this encounterAccess [facility] History of Present illness Narrative* Deja Morales JUAN C - 08/27/2022 2:30 PM EST TRANSITION CARE MANAGEMENT (TCM) INITIAL CONTACT Guard Lieutenant Outreach Provider Action/FYI: TCM Initial contact with patient post discharge, spoke to spouse. Patient identified by name and . TRANSITION CARE MANAGEMENT INITIAL OUTREACH DOCUMENTATION: Date of Outreach: 08/27/2022 Outreach Attempt 1: Contact Made Date of Discharge 08/26/2022 Some recent data might be hidden SUMMARY: -Pt discharged from [facility] on 08/26/22. -Admitted for: chest [...] for provider to review documented in this encounterAccess [facility] [place]01-[facility]-2023 Evaluation note* Diagnosis Onset Date Resolution Status History of coronary artery stent placement August, acute Essential hypertension chron ic Hyperlipidemia [facility] Work Phone: 1(806) 539-195301-01-2023 Evaluation note* Diagnosis Onset Date Resolution Status Admit Date History of coronary artery stent placement August, acute January 16, 2025 8 :03am Essential hypertension chronic Ju 2024 8:03am Hyperlipidemia chronic January 16, 2025 8:03am [facility] Work Phone: 1(453) 606-566001-01-2023 Evaluation note* Diagnosis Onset Date Resolution Status Admit Date Fatigue acute April 11:00am History of coronary artery stent placement August, acute May 16, 2025 11:00am Midsternal chest pain acute Sep tember 2024 11:00am SOB (shortness of breath) acute May 16, 2025 11:00am Essential hypertension chronic Se ptember 2024 11:00am Hyperlipidemia chronic May 16, 2025 11:00am [facility] Work Phone: 1(788) 137-315012-27-2022 Miscellaneous Notes* Telephone Encounter - Dary Dow [...] go to the ER. documented in this encounterAccess [facility] [place]12-[facility] History of Present illness Narrative* Dary Dow APRN.CNP - 07/29/2022 1:56 PM EST CC: Patient presents with: Establish Care HPI Luís Hernandez is a 77 year old male who presents today for above. Patient was living in [place] 6 months out of the year but decided to move back to [place] and only stay in [place] for a couple months a year. He was seeing Dr. Carlos but changed to Dr. Sahu however he will be retiring soon. BPH- urologist is Dr. Dunn. Recent PSA normal. He had TURP in 2020. He self administers intracavernosal injections of prostaglandin for ED, [facility] [place] OLIVA: Is compliant with CPAP. No changes [...] Knee replacement, total lt NASAL/SPHENOID SINUS ENDOSCOPY,DX [id number] removal of cyst in sinus PARATHYROIDECTOMY/EXPLORATION PARATHYROIDS [...] plan. Dary Dow APRN.MICHELLE documented in this encounterAccess [facility]09-30-2022 Miscellaneous Notes* Telephone Encounter - Claudia Johnson - 05/16/2022 2:15 PM EDT VALUE BASED CARE ENCOUNTER Patient identified by Name and : Yes Open Care Gaps Annual Wellness Visit Appointment due, unable to schedule Controlling Blood Pressure Recheck above > 140/90 Suspect Conditions external source: [facility]12 2019 Breast, Prostate, and Other Cancers and Tumors external source: [facility]72 2019 Spinal Cord Disorders/Injuries Outreach Outcome Unable to reach patient Left message Claudia Johnson Population Health Navigator II [phone] [phone] May 16, 2022 2:15 PM documented in this encounterAccess [facility] [place]05-[facility]-2022 Miscellaneous Notes* Telephone Encounter - Thi Adrian [...] ordering physician: Dr. Hampton documented in this encounterAccess [facility] [place]06-[facility]-2021 Miscellaneous Notes* Telephone Encounter - Kita Weinberga - 01/24/2021 11:17 AM EDT Good afternoon, [facility] call [facility] to schedule your annual wellness visit with your primary care doctor. Thank you Merary Weinberg [phone] documented in [facility] encounterAccess [facility] [place]-2020 History of Past illness Narrative* Problem Noted [...] of this encounter (statuses as of 07/29/2022) [facility] History of Past illness Narrative* Problem Noted [...] of this encounter (statuses as of 08/18/2022) [facility] History of Past illness Narrative* Problem Noted [...] of this encounter (statuses as of 08/27/2022) [facility] History of Past illness Narrative* Problem Noted [...] of this encounter (statuses as of 08/29/2022) [facility] History of Past illness Narrative* Problem Noted [...] of this encounter (statuses as of 09/24/2022) [facility] History of Past illness Narrative* Problem Noted [...] of this encounter (statuses as of 10/22/2022) [facility] History of Past illness Narrative* Problem Noted [...] of this encounter (statuses as of 01/24/2021) [facility] History of Past illness Narrative* Problem Noted [...] of this encounter (statuses as of 12/17/2021) [facility] History of Past illness Narrative* Problem Noted [...] of this encounter (statuses as of 05/16/2022) [facility] [place] [facility]* Diagnosis Onset Date Resolution Status Essential hypertension chron ic Hyperlipidemia chronic Encounter to establish care noneactive [facility] Work Phone: Evaluation noteNo assessment information available [facility] Work Phone: evaluhsedp note* Diagnosis OLIVA on CPAP- Primary Obstructive sleep apnea (adult) (pediatric) Chronic neck pain Cervicalgia Restless leg syndrome Restless legs syndrome (RLS) Erectile dysfunction due to arterial insufficiency Impotence of organic origin Encounter to establish care with new doctor Other reasons for seeking consultation [facility] encounter [facility]* Diagnosis Onset Date Resolution Status Unstable angina acute [facility] Work Phone: Evaluation note* Diagnosis NSTEMI (non-ST elevated myocardial infarction) ([facility])- Primary Acute myocardial infarction, subendocardial infarction, episode of care unspecified Primary hypertension Unspecified essential hypertension Hyperlipidemia, unspecified hyperlipidemia type Stented coronary artery (proximal RCA) Postsurgical percutaneous transluminal coronary angioplasty status Chronic neck pain Cervicalgia [facility] encounter [facility]* Diagnosis Onset Date Resolution Status NSTEMI, initial episode of care acute Essential hypertension chron ic Hyperlipidemia chronic [facility] Work Phone: Evaluation note* Diagnosis Primary hypertension Unspecified essential hypertension [facility] encounter [facility]* Diagnosis Onset Date Resolution Status Essential hypertension chron ic Hyperlipidemia chronic Atherosclerosis of coronary artery of wilton heart without angina pectoris acute Essential hypertension chron ic Hyperlipidemia chronic [facility] Work Phone: Evaluation note* Diagnosis Primary hypertension- Primary Unspecified essential hypertension Stented coronary artery (proximal RCA) Postsurgical percutaneous transluminal coronary angioplasty status History of prostate surgery Other postprocedural status [facility] Diagnosis Fatigue, unspecified type- Primary documented in this encounter [facility] [place] [facility]* Diagnosis Onset Date Resolution Status Atherosclerosis of coronary artery of w[place] heart without angina pectoris acute Essential hypertension chron ic Hyperlipidemia [facility] Work Phone: Evaluation note* Diagnosis Medicare annual [...] symptom details unspecified documented in this encounter [facility] [place] [facility]* Diagnosis Fatigue, unspecified type- Primary Vitamin B12 deficiency Other B-complex deficiencies PSA elevation Elevated prostate specific antigen (PSA) Vitamin D deficiency Unspecified vitamin D deficiency Cervicalgia documented in this encounter [facility] [place] [facility]* Diagnosis Constipation, unspecified constipation type- Primary documented in this encounter [facility] [place] [facility]* Diagnosis Vitamin B12 deficiency- Primary Other B-complex deficiencies [facility] [place] [facility]* Diagnosis Restless leg syndrome Restless legs syndrome (RLS) [facility] Diagnosis Dysuria- Primary [facility] Diagnosis Urinary tract infection with hematuria, site unspecified- Primary [facility] Diagnosis Dysuria- Primary [facility] [place] [facility]* Diagnosis Urinary tract infection without hematuria, site unspecified- Primary [facility] Diagnosis Urinary tract infection without hematuria, site unspecified [facility]* Diagnosis Medicare annual wellness visit, subsequent- [...] unspecified hyperlipidemia type 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 OLIVA on CPAP Obstructive sleep apnea (adult) (pediatric) Colon polyposis Benign neoplasm of colon [facility]* Diagnosis Acute right-sided low back pain without sciatica- Primary Fall on steps, initial encounter [facility]* Diagnosis Primary hypertension- Primary Unspecified essential hypertension Hyperlipidemia, unspecified hyperlipidemia type Vitamin B12 deficiency Other B-complex deficiencies Hyperparathyroidism (HCC) Hyperparathyroidism, unspecified Vitamin D deficiency Unspecified vitamin D deficiency 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 Myalgia due to statin [facility] Additional Instructions Please follow-up with urology for repeat evaluation. If you develop lightheaded or dizziness or feel you are going to pass out or have worsening of bleeding please return to the ER for [facility] Work Phone: Progress note Author Jonan Mcintyre [facility] Note Date/Time May 16, 2025 11:25am [facility] [address] [place] [address] OFFICE VISIT Date of Service: 05/16/25 MR#: [id number] Acct: [id number] Name: LUÍS HERNANDEZ Rep #: [id number] : 1945 Provider: FATMATA Mcintyre Age/Sex: 80/M Location: [facility] Status: Signed HPI HPI History of Present Illness Details: This is a 80-year-old male who presents to the office today for a cardiovascularfollow-up. He was evaluated at [facility] in August 2022 for non-ST elevated myocardial [...] of chest pain off and on. L.L. 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 NSTEMI, initial episode of care Neuropathy Lightheadedness Uncontrolled hypertension Coronary artery calcification seen on CAT scan (12/2016) Insomnia Anxiety Osteoarthritis Hyperlipidemia Obesity Restless legs syndrome (RLS) Obstructive sleep apnea Cervical stenosis of spine BPH (benign prostatic hyperplasia) Essential hypertension Surgical History (Reviewed 05/16/25 @ 13:03 by Jonna Mcintyre PUBLIC TRANSIT TROLLEY DRIVER, PUBLIC TRANSIT TROLLEY DRIVER-C) Hx of colonoscopy History of cardiac catheterization [...] CONCLUSIONS Successful PTCA/GIUSEPPE Prox RCA using Resolute Sycamore 4.0x18 mm Abdomen/Pelvis CT 09/24/22 There is [...] Today I25.10 - Atherosclerotic heart disease of wilton coronary artery without angina pectoris, R07.89 - [...] updated, as necessary. Follow Up: 6-8 weeks (PUBLIC TRANSIT TROLLEY DRIVER/PA) Coding Level of Care Code Off vis,est,level [...] 1305 <Electronically signed by Jonna Mcintyre NP PUBLIC TRANSIT TROLLEY DRIVER-C> Date _ Jonna Mcintyre NP PUBLIC TRANSIT TROLLEY DRIVER-C Cosigner Signature: Date (if applicable) CC: ~ [facility] Work Phone: reason for referral (narrative)* Diagnostic Procedure Only (Routine) - Authorized Specialty Diagnoses / Procedures Referred By Frantz dietz Referred To Contact US IMAGING Diagnoses Urinary tract infection without hematuria, site unspecified Procedures US KIDNEY/BLADDER US RETROPERITONEAL REAL TIME W/IMAGE COMPLETE Haroldo Hollis MD [address] [place] [address] [place] [address] Referral ID Status Reason Start Date Expiration Date Visits Requested Visits Authorized [id number] Authorized Auto-Generat ed Referral 08/19/2024 09/18/2025 1 1 [facility] for referral (narrative)No reason for referral information availableCam[facility] Work Phone: Reofkz for visit Narrative* Diagnostic Procedure Only (Urgent) - Closed Specialty Diagnoses / Procedures Referred By Frantz dietz Referred To Contact XR IMAGING Diagnoses Acute right-sided low back pain without sciatica Fall on steps, initial encounter Procedures XR LUMBAR GENERAL 3V AP/LAT/L5-S1 RADEX SPINE LUMBOSACRAL 2/3 VIEWS Dary Croft, EXECUTIVE CHAIRMAN OF THE BOARD.CORE MACHINE TENDER [address] [place] [address] Phone: tel: fax: [place] [id number] Referral ID Status Reason Start Date Expiration Date V isits Requested Visits Authorized [id number] Closed Auto-Generate d Referral 12/13/2024 01/12/2026 1 1 [facility] History of Past Illness Problem Noted Date [...] FoundDocuments on File Type Date Recorded Patient Funeral Greeter Expl anation Advance Directive(s) 03/14/2019 1:06 PM Advance Directive Response Recorded Date/ Time Name of Medical Power of Mate Fishing Vessel manas August 24, 2022 11:19pm Living Will Yes August 24 11:19pm Power of Mate Fishing Vessel Yes August 24 11:19pm Advance Directive Response Recorded Date/ Time Name of Medical Power of Mate Fishing Vessel August 25, 2022 1:53am Living Will No August 30 8:57pm Power of Mate Fishing Vessel No August 30, 2022 8:57pm Advance Directive Response Recorded Date/ Time Name of Medical Power of Mate Fishing Vessel August 25, 2022 1:53am Advance Directives on File No Francisco Javier ry 2022 1:27pm Living Will Yes September 03 1:27pm Power of Mate Fishing Vessel Yes September 03, 2022 1:27pm Advance Directive Response Recorded Date/ Time Name of Medical Power of Mate Fishing Vessel August 25, 2022 2:53am Advance Directives on File No Francisco Javier ry 2022 2:27pm Living Will Yes September 03 2:27pm Power of Mate Fishing Vessel Yes September 03, 2022 2:27pm Advance Directive Response Recorded Date/ Time Living Will Yes September 03 2:27pm Power of Mate Fishing Vessel Yes September 03, 2022 2:27pm Documents on File Type Date Recorded Patient Funeral Greeter Expl anation Advance Directive(s) 04/01/2023 9:15 AM Advance Directive Response Recorded Date/ Time Living Will Yes September 03 1:27pm Power of Mate Fishing Vessel Yes September 03, 2022 1:27pm Documents on File Type Date Recorded Patient Funeral Greeter Expl anation Advance Directive(s) 04/01/2023 9:15 AM Advance Directive Response Recorded Date/ Time Living Will Yes September 03 2:27pm Do you have a Healthcare Power of Mate Fishing Vessel? Yes September 03, 2022 2:27pm History of [...] Ha MD on within [facility] days at [facility] . Patient reports to be able [...] SCOPE,DIAGNOSTIC -2006 Arthroscopy, knee NASAL/SPHENOID SINUS ENDOSCOPY,DX [id number] removal of cyst in sinus PAST SURGICAL [...] Lymph 1409 850 - 3900 cells/uL Abs [place] 693 200 - 950 cells/uL Abs Eosin 154 15 - 500 cells/uL Abs Baso 77 0 - 200 cells/uL Neut% 69.7 % Lymph% 18.3 % [place]% 9.0 % Eosin% 2.0 % Baso% 1.0 [...] CULTURE, URINE, ROUTINE Result Value Ref Range Licensed Audiologist CULTURE, URINE, ROUTINE CULTURE, URINE, ROUTINE Micro Number: [id number] Test Status: Final Specimen Source: URINE Specimen Quality: Adequate Result: No Growth Test Performed at: [facility] [address] [id number] TY ADAIR MD Specimen Received Date: 06/11/2020 [...] Complaint and Reason for Visit Chief Complaint PUBLIC TRANSIT TROLLEY DRIVER, EST. CARE, PT NE EDS NPP Reason [...] w/coronary stenting PCI with coronary stent s/p [facility] 08-26-22 Asymptomatic microscopic hematuria PCI with coronary stent Reason for Visit Essential hypertensi on Hyperlipidemia Atherosclerosis of coronary artery of w[place] heart without angina pectoris Essential hypertension Hyperlipidemia Chief Complaint CHEST PAIN CHEST PAIN CHEST PAIN CHEST PAIN blood in urine NonSTEMI, PCI w/coronary stenting PCI with coronary stent s/p [facility] 08-26-22 Asymptomatic microscopic hematuria PCI with coronary stent E ORDER PCI with coronary stent Reason for Visit Essential hypertensi on Hyperlipidemia Atherosclerosis of coronary artery of w[place] heart without angina pectoris Essential hypertension Hyperlipidemia Chief Complaint CHEST PAIN CHEST PAIN CHEST PAIN CHEST PAIN blood in urine NonSTEMI, PCI w/coronary stenting PCI with coronary stent s/p [facility] 08-26-22 Asymptomatic microscopic hematuria PCI with coronary stent E ORDER PCI with coronary stent PCI with coronary stent Reason for Visit Essential hypertensi on Hyperlipidemia Atherosclerosis of coronary artery of w[place] heart without angina pectoris Essential hypertension Hyperlipidemia Chief Complaint s/p [facility] 08-26-22 Asymptomatic microscopic hematuria PCI with coronary stent E ORDER PCI with coronary stent PCI with coronary stent PCI with coronary stent Reason for Visit Atherosclerosis of c oronary artery of w[place] heart without angina pectoris Essential hypertension Hyperlipidemia [...] Frantz dietz Referred To Contact Dary Croft, EXECUTIVE CHAIRMAN OF THE BOARD.CORE MACHINE TENDER [address] [place] [address] Referral ID Status Reason Start Date Expiration Date Visits Re quested Visits Authorized [id number] Denied 1 1 Additional Source Comments Source Comments (unrecognize d section and content) In the event this informatio n is protected by the Federal Confidentiality of Alcohol and Drug Abuse Patient Records regulations: The Federal rules restrict any use of the information to criminally investigate or prosecute any alcohol or drug abuse patient.[facility] the event this information is protected by the Federal Confidentiality of Alcohol and Drug Abuse Patient Records regulations: The Federal rules restrict any use of the information to criminally investigate or prosecute any alcohol or drug abuse patient.[facility] the event this information is protected by the Federal Confidentiality of Alcohol and Drug Abuse Patient Records regulations: The Federal rules restrict any use of the information to criminally investigate or prosecute any alcohol or drug abuse patient.[facility] the event this information is protected by the Federal Confidentiality of Alcohol and Drug Abuse Patient Records regulations: The Federal rules restrict any use of the information to criminally investigate or prosecute any alcohol or drug abuse patient.[facility] the event this information is protected by the Federal Confidentiality of Alcohol and Drug Abuse Patient Records regulations: The Federal rules restrict any use of the information to criminally investigate or prosecute any alcohol or drug abuse patient.[facility] DaytonIn the event this information is protected by the Federal Confidentiality of Alcohol and Drug Abuse Patient Records regulations: The Federal rules restrict any use of the information to criminally investigate or prosecute any alcohol or drug abuse patient.[facility]In the event this information is protected by the Federal Confidentiality of Alcohol and Drug Abuse Patient Records regulations: The Federal rules restrict any use of the information to criminally investigate or prosecute any alcohol or drug abuse patient.[facility] DaytonIn the event this information is protected by the Federal Confidentiality of Alcohol and Drug Abuse Patient Records regulations: The Federal rules restrict any use of the information to criminally investigate or prosecute any alcohol or drug abuse patient.[facility] DaytonIn the event this information is protected by the Federal Confidentiality of Alcohol and Drug Abuse Patient Records regulations: The Federal rules restrict any use of the information to criminally investigate or prosecute any alcohol or drug abuse patient.[facility] DaytonIn the event this information is protected by the Federal Confidentiality of Alcohol and Drug Abuse Patient Records regulations: The Federal rules restrict any use of the information to criminally investigate or prosecute any alcohol or drug abuse patient.[facility] DaytonIn the event this information is protected by the Federal Confidentiality of Alcohol and Drug Abuse Patient Records regulations: The Federal rules restrict any use of the information to criminally investigate or prosecute any alcohol or drug abuse patient.[facility] DaytonIn the event this information is protected by the Federal Confidentiality of Alcohol and Drug Abuse Patient Records regulations: The Federal rules restrict any use of the information to criminally investigate or prosecute any alcohol or drug abuse patient.[facility] DaytonIn the event this information is protected by the Federal Confidentiality of Alcohol and Drug Abuse Patient Records regulations: The Federal rules restrict any use of the information to criminally investigate or prosecute any alcohol or drug abuse patient.[facility] DaytonIn the event this information is protected by the Federal Confidentiality of Alcohol and Drug Abuse Patient Records regulations: The Federal rules restrict any use of the information to criminally investigate or prosecute any alcohol or drug abuse patient.[facility] DaytonIn the event this information is protected by the Federal Confidentiality of Alcohol and Drug Abuse Patient Records regulations: The Federal rules restrict any use of the information to criminally investigate or prosecute any alcohol or drug abuse patient.[facility] DaytonIn the event this information is protected by the Federal Confidentiality of Alcohol and Drug Abuse Patient Records regulations: The Federal rules restrict any use of the information to criminally investigate or prosecute any alcohol or drug abuse patient.[facility] DaytonIn the event this information is protected by the Federal Confidentiality of Alcohol and Drug Abuse Patient Records regulations: The Federal rules restrict any use of the information to criminally investigate or prosecute any alcohol or drug abuse patient.[facility] DaytonIn the event this information is protected by the Federal Confidentiality of Alcohol and Drug Abuse Patient Records regulations: The Federal rules restrict any use of the information to criminally investigate or prosecute any alcohol or drug abuse patient.[facility] DaytonIn the event this information is protected by the Federal Confidentiality of Alcohol and Drug Abuse Patient Records regulations: The Federal rules restrict any use of the information to criminally investigate or prosecute any alcohol or drug abuse patient.[facility] DaytonIn the event this information is protected by the Federal Confidentiality of Alcohol and Drug Abuse Patient Records regulations: The Federal rules restrict any use of the information to criminally investigate or prosecute any alcohol or drug abuse patient.[facility] DaytonIn the event this information is protected by the Federal Confidentiality of Alcohol and Drug Abuse Patient Records regulations: The Federal rules restrict any use of the information to criminally investigate or prosecute any alcohol or drug abuse patient.[facility] DaytonIn the event this information is protected by the Federal Confidentiality of Alcohol and Drug Abuse Patient Records regulations: The Federal rules restrict any use of the information to criminally investigate or prosecute any alcohol or drug abuse patient.[facility] DaytonIn the event this information is protected by the Federal Confidentiality of Alcohol and Drug Abuse Patient Records regulations: The Federal rules restrict any use of the information to criminally investigate or prosecute any alcohol or drug abuse patient.[facility] DaytonIn the event this information is protected by the Federal Confidentiality of Alcohol and Drug Abuse Patient Records regulations: The Federal rules restrict any use of the information to criminally investigate or prosecute any alcohol or drug abuse patient.[facility] DaytonIn the event this information is protected by the Federal Confidentiality of Alcohol and Drug Abuse Patient Records regulations: The Federal rules restrict any use of the information to criminally investigate or prosecute any alcohol or drug abuse patient.[facility] DaytonIn the event this information is protected by the Federal Confidentiality of Alcohol and Drug Abuse Patient Records regulations: The Federal rules restrict any use of the information to criminally investigate or prosecute any alcohol or drug abuse patient.[facility] DaytonIn the event this information is protected by the Federal Confidentiality of Alcohol and Drug Abuse Patient Records regulations: The Federal rules restrict any use of the information to criminally investigate or prosecute any alcohol or drug abuse patient.[facility] DaytonIn the event this information is protected by the Federal Confidentiality of Alcohol and Drug Abuse Patient Records regulations: The Federal rules restrict any use of the information to criminally investigate or prosecute any alcohol or drug abuse patient.[facility] DaytonIn the event this information is protected by the Federal Confidentiality of Alcohol and Drug Abuse Patient Records regulations: The Federal rules restrict any use of the information to criminally investigate or prosecute any alcohol or drug abuse patient.[facility] DaytonIn the event this information is protected by the Federal Confidentiality of Alcohol and Drug Abuse Patient Records regulations: The Federal rules restrict any use of the information to criminally investigate or prosecute any alcohol or drug abuse patient.[facility] DaytonIn the event this information is protected by the Federal Confidentiality of Alcohol and Drug Abuse Patient Records regulations: The Federal rules restrict any use of the information to criminally investigate or prosecute any alcohol or drug abuse patient.[facility] DaytonIn the event this information is protected by the Federal Confidentiality of Alcohol and Drug Abuse Patient Records regulations: The Federal rules restrict any use of the information to criminally investigate or prosecute any alcohol or drug abuse patient.[facility] DaytonIn the event this information is protected by the Federal Confidentiality of Alcohol and Drug Abuse Patient Records regulations: The Federal rules restrict any use of the information to criminally investigate or prosecute any alcohol or drug abuse patient.[facility] DaytonIn the event this information is protected by the Federal Confidentiality of Alcohol and Drug Abuse Patient Records regulations: The Federal rules restrict any use of the information to criminally investigate or prosecute any alcohol or drug abuse patient.[facility] DaytonIn the event this information is protected by the Federal Confidentiality of Alcohol and Drug Abuse Patient Records regulations: The Federal rules restrict any use of the information to criminally investigate or prosecute any alcohol or drug abuse patient.[facility] DaytonIn the event this information is protected by the Federal Confidentiality of Alcohol and Drug Abuse Patient Records regulations: The Federal rules restrict any use of the information to criminally investigate or prosecute any alcohol or drug abuse patient.[facility] DaytonIn the event this information is protected by the Federal Confidentiality of Alcohol and Drug Abuse Patient Records regulations: The Federal rules restrict any use of the information to criminally investigate or prosecute any alcohol or drug abuse patient.[facility] DaytonIn the event this information is protected by the Federal Confidentiality of Alcohol and Drug Abuse Patient Records regulations: The Federal rules restrict any use of the information to criminally investigate or prosecute any alcohol or drug abuse patient.[facility] DaytonIn the event this information is protected by the Federal Confidentiality of Alcohol and Drug Abuse Patient Records regulations: The Federal rules restrict any use of the information to criminally investigate or prosecute any alcohol or drug abuse patient.[facility] DaytonIn the event this information is protected by the Federal Confidentiality of Alcohol and Drug Abuse Patient Records regulations: The Federal rules restrict any use of the information to criminally investigate or prosecute any alcohol or drug abuse patient.[facility] DaytonIn the event this information is protected by the Federal Confidentiality of Alcohol and Drug Abuse Patient Records regulations: The Federal rules restrict any use of the information to criminally investigate or prosecute any alcohol or drug abuse patient.[facility] DaytonIn the event this information is protected by the Federal Confidentiality of Alcohol and Drug Abuse Patient Records regulations: The Federal rules restrict any use of the information to criminally investigate or prosecute any alcohol or drug abuse patient.[facility] DaytonIn the event this information is protected by the Federal Confidentiality of Alcohol and Drug Abuse Patient Records regulations: The Federal rules restrict any use of the information to criminally investigate or prosecute any alcohol or drug abuse patient.[facility] DaytonIn the event this information is protected by the Federal Confidentiality of Alcohol and Drug Abuse Patient Records regulations: The Federal rules restrict any use of the information to criminally investigate or prosecute any alcohol or drug abuse patient.[facility] DaytonIn the event this information is protected by the Federal Confidentiality of Alcohol and Drug Abuse Patient Records regulations: The Federal rules restrict any use of the information to criminally investigate or prosecute any alcohol or drug abuse patient.[facility] DaytonIn the event this information is protected by the Federal Confidentiality of Alcohol and Drug Abuse Patient Records regulations: The Federal rules restrict any use of the information to criminally investigate or prosecute any alcohol or drug abuse patient.[facility] DaytonIn the event this information is protected by the Federal Confidentiality of Alcohol and Drug Abuse Patient Records regulations: The Federal rules restrict any use of the information to criminally investigate or prosecute any alcohol or drug abuse patient.[facility] DaytonIn the event this information is protected by the Federal Confidentiality of Alcohol and Drug Abuse Patient Records regulations: The Federal rules restrict any use of the information to criminally investigate or prosecute any alcohol or drug abuse patient.[facility] Reason for Visit (unrecogniz ed section and [...] REAL TIME W/IMAGE COMPLETE Haroldo Hollis MD [address] [place] [address] [place] [address] Referral ID Status Reason Start Date Expiration Date V isits Requested Visits Authorized [id number] Closed Auto-Generate d Referral 08/19/2024 09/18/2025 1 [...] any additional information. Please call patient to [phone] documented in this encounter Notes received. will review Notes received and placed in 's mailbox for review. Patient called to advise [phone] on [facility]. He says the CT was ordered by his Orthopedic DrPatricia a[facility]- [phone]. He was told PCP needs to be notified for authorization purposes. Dr. Ha office will be faxing office notes. documented in this encounter (unrecognized sect ion and content) No Status Records FoundNo Status Records FoundNo Status Records Found INFORMATION SOURCE (unrecogn ized section and content) DATE CREATED AUTHOR 12/06/2021 [facility] DATE CREATED AUTHOR AUTHOR'S ORGANIZ ATION 05/19/2025 [facility] DATE CREATED AUTHOR AUTHOR'S ORGANIZ ATION 06/01/2025 [facility] Care Teams (unrecognized sec tion and content) Health Lead Relationship Specialty Start Date End Date Xavier Hampton, DO [address] [facility] [address] [place] [address] PCP - General Family Practice 08/19/19 Health Lead Relationship Specialty Start Date End Date Xavier Hampton DO [address] [facility] [address] [place] [address] PCP - General Family Medicine 08/19/19 Health Lead Relationship Specialty Start Date End Date Haroldo Hollis MD [address] [place], [place] [id number] PCP - General Internal Medicine 07/28/22 Health Lead Relationship Specialty Start Date End Date Haroldo Hollis MD [address] [place], [place] [id number] PCP - General Internal Medicine 07/28/22 Health Lead Relationship Specialty Start Date End Date Haroldo Hollis MD [address] [place] [address] PCP - General Internal Medicine 07/28/22 Team [...] MD Attending Provider, Referring Pro vider Active Health Lead Relationship Specialty Start Date End Date Haroldo Hollis MD [address] [place] [address] PCP - General Internal Medicine 07/28/22 Team Status: Inactive Member Role Status Dates Haroldo Hollis MD Primary Care Provider, Referring Provider Active Ej Montano PUBLIC TRANSIT TROLLEY DRIVER, PUBLIC TRANSIT TROLLEY DRIVER-C Attending Provider Active Team Status: Inactive Member Role Status Dates Haroldo Hollis MD Primary Care Provider Active Dr. Deion Dunn MD Attending Provider, Referr ing Provider Active Health Lead Relationship Specialty Start Date End Date Haroldo Hollis MD [address] [place] [address] PCP - General Internal Medicine 07/28/22 Health Lead Relationship Specialty Start Date End Date Haroldo Hollis MD [address] [place] [address] PCP - General Internal Medicine 07/28/22 Health Lead Relationship Specialty Start Date End Date Haroldo Hollis MD [address] [place] [address] PCP - General Internal Medicine 07/28/22 Team [...] Provider, Referr ing Provider Active Ej Montano PUBLIC TRANSIT TROLLEY DRIVER, PUBLIC TRANSIT TROLLEY DRIVER-C Attending Provider Active Team Status: Inactive Member [...] Dr. You Hooper MD Attending Provider Active Health Lead Relationship Specialty Start Date End Date Haroldo Hollis MD [address] [place] [address] PCP - General Internal Medicine 07/28/22 Health Lead Relationship Specialty Start Date End Date Haroldo Hollis MD [address] [place] [address] PCP - General Internal Medicine 07/28/22 Team Status: Active Member Role Status Dates Dr. Zackary Carlos MD Family Provider Active Dr. Haroldo Hollis MD Primary Care Provider Active Team Status: Inactive Member Role Status Dates Dary Dow PUBLIC TRANSIT TROLLEY DRIVER, PUBLIC TRANSIT TROLLEY DRIVER-C Attending Provider Active Dr. Haroldo Hollis MD Primary Care Provider Active Team Status: Inactive Member Role Status Dates Dary Croft PUBLIC TRANSIT TROLLEY DRIVER, PUBLIC TRANSIT TROLLEY DRIVER-C Attending Provider Active Dr. Haroldo Hollis MD Primary Care Provider Active Team Status: Inactive Member Role Status Dates Dr. Haroldo Hollis MD Primary Care Provider Active Dr. Deion Dunn MD Attending Provider, Referr ing Provider Active Health Lead Relationship Specialty Start Date End Date Haroldo Hollis MD [address] [place] [address] PCP - General Internal Medicine 07/28/22 Health Lead Relationship Specialty Start Date End Date Haroldo Hollis MD [address] [place] [address] PCP - General Internal Medicine 07/28/22 Health Lead Relationship Specialty Start Date End Date Haroldo Hollis MD [address] [place] [address] PCP - General Internal Medicine 07/28/22 Health Lead Relationship Specialty Start Date End Date Haroldo Hollis MD [address] [place] [address] PCP - General Internal Medicine 07/28/22 Health Lead Relationship Specialty Start Date End Date Haroldo Hollis MD [address] [place] [address] PCP - General Internal Medicine 07/28/22 Health Lead Relationship Specialty Start Date End Date Haroldo Hollis MD [address] [place] [address] PCP - General Internal Medicine 07/28/22 Health Lead Relationship Specialty Start Date End Date Haroldo Hollis MD [address] [place] [address] PCP - General Internal Medicine 07/28/22 Health Lead Relationship Specialty Start Date End Date Haroldo Hollis MD [address] [place] [address] PCP - General Internal Medicine 07/28/22 Dary Croft, EXECUTIVE CHAIRMAN OF THE BOARD.CORE MACHINE TENDER [address] [place] [address] Dba Developer Internal Medicine 07/25/24 Health Lead Relationship Specialty Start Date End Date Haroldo Hollis MD [address] [place] [address] PCP - General Internal Medicine 07/28/22 Dary Croft, EXECUTIVE CHAIRMAN OF THE BOARD.CORE MACHINE TENDER [address] [place] [address] Dba Developer Internal Medicine 07/25/24 Health Lead Relationship Specialty Start Date End Date Haroldo Hollis MD [address] [place] [address] PCP - General Internal Medicine 07/28/22 Dary Croft, EXECUTIVE CHAIRMAN OF THE BOARD.CORE MACHINE TENDER [address] [place] [address] Dba Developer Internal Medicine 07/25/24 Health Lead Relationship Specialty Start Date End Date Haroldo Hollis MD [address] [place] [address] PCP - General Internal Medicine 07/28/22 Dary Croft, EXECUTIVE CHAIRMAN OF THE BOARD.CORE MACHINE TENDER [address] [place] [address] Dba Developer Internal Medicine 07/25/24 Health Lead Relationship Specialty Start Date End Date Haroldo Hollis MD [address] [place] [address] PCP - General Internal Medicine 07/28/22 Dary Croft, EXECUTIVE CHAIRMAN OF THE BOARD.CORE MACHINE TENDER [address] [place] [address] Dba Developer Internal Medicine 07/25/24 Health Lead Relationship Specialty Start Date End Date Haroldo Hollis MD [address] [place] [address] PCP - General Internal Medicine 07/28/22 Dary Croft, EXECUTIVE CHAIRMAN OF THE BOARD.CORE MACHINE TENDER [address] [place] [address] Dba Developer Internal Medicine 07/25/24 Health Lead Relationship Specialty Start Date End Date Haroldo Hollis MD [address] [place] [address] PCP - General Internal Medicine 07/28/22 Dary Croft, EXECUTIVE CHAIRMAN OF THE BOARD.CORE MACHINE TENDER [address] [place] [address] Dba Developer Internal Medicine 07/25/24 Health Lead Relationship Specialty Start Date End Date Haroldo Hollis MD [address] [facility], [place] [id number] PCP - General Internal Medicine 07/28/22 Dary Croft, EXECUTIVE CHAIRMAN OF THE BOARD.CORE MACHINE TENDER [address] [place] [address] [facility] Internal Medicine 07/25/24 Health Lead Relationship Specialty Start Date End Date Haroldo Hollis MD [address] [place] [address] PCP - General Internal Medicine 07/28/22 Dary Croft, EXECUTIVE CHAIRMAN OF THE BOARD.CORE MACHINE TENDER [address] [place], [place] [address] [facility] Internal Medicine 07/25/24 Team Status: Active Member Role Status Dates Dr. Haroldo Hollis MD Primary Care Provider Active Team Status: Inactive Member Role Status Dates Dr. Haroldo Hollis MD Primary Care Provider Active Start: January 16, 2025 End: January 16, 2025 Dr. Haroldo Hollis MD Referring Provider Active Start: January 16, 2025 End: January 16, 2025 Ej Montano PUBLIC TRANSIT TROLLEY DRIVER, PUBLIC TRANSIT TROLLEY DRIVER-C Attending Provider Active S tart: January 16, 2025 End: January 16, 2025 Health Lead Relationship Specialty Start Date End Date Haroldo Hollis MD [address] [place], [place] [address] PCP - General Internal Medicine 07/28/22 Dary Croft, EXECUTIVE CHAIRMAN OF THE [employer]ARD.CORE MACHINE TENDER [address] [place] [address] Dba Developer Internal Medicine 07/25/24 Health Lead Relationship Specialty Start Date End Date Harolod Hollis MD [address] [place] [address] PCP - General Internal Medicine 07/28/22 Dary Croft, EXECUTIVE CHAIRMAN OF THE [employer]ARD.CORE MACHINE TENDER [address] [place] [address] [facility] Internal Medicine 07/25/24 Health Lead Relationship Specialty Start Date End Date Haroldo Hollis MD [address] [facility], [place] [id number] PCP - General Internal Medicine 07/28/22 Dary Croft, EXECUTIVE CHAIRMAN OF THE BOARD.CORE MACHINE TENDER [address] [facility] [place], [place] [address] D[employer] Developer Internal Medicine 07/25/24 Team Status: Active Member Role/Relationship Status Dates Dr. Haroldo Hollis MD Primary care physician Activ e Team Status: Inactive Member Role/Relationship Status Dates Dr. Haroldo Hollis MD Primary care physician Activ e Start: May 16, 2025 End: May 16, 2025 Dr. Haroldo Hollis MD Referring Provider Active Start: May 16, 2025 End: May 16, 2025 Jonna Mcintyre NP, PUBLIC TRANSIT TROLLEY DRIVER-C Attending physician Active Start: May 16, 2025 End: May 16, 2025 Team Status: Active Member Role/Relationship Status Dates Dr. Haroldo Hollis MD Primary care physician Activ e Start: May 16, 2025 Jonna Mcintyre NP, PUBLIC TRANSIT TROLLEY DRIVER-C Attending physician Active Start: May 16, 2025 Jonna Mcintyre NP, PUBLIC TRANSIT TROLLEY DRIVER-C Referring Provider Active Start: May 16, 2025 [...] BE BASED ON THE PRIMARY CLINICAL RECORDS. [facility]. provides no warranty or guarantee of the accuracy or completeness of information in this document.
--- NOTE | 2025-06-02 09:03 | STRESSREP_ITS ---
Stress Test Report Exercise myocardial perfusion stress test. 80-year-old man with a history of chest pressure. Stress protocol: Resting EKG demonstrates normal sinus rhythm with a rate of 62 bpm resting blood pressure is 148/94 mmHg. The patient exercised according to the regular Martin protocol for a total duration of 5 minutes attaining a maximum heart rate of 144 bpm which was 102% of maximum predicted heart rate; the maximum workload was 7 metabolic equivalents. At rest there were no ST or T wave changes noted to suggest ischemia and at peak exercise upsloping ST changes only were noted which did not meet the criteria for ischemia. No clinical angina was noted the test was terminated due to the target heart rate being achieved/fatigue. The peak blood pressure was 194/90 mmHg. Rate-pressure product was 25,000. Myocardial perfusion protocol. 13.8 mCi of technetium 99m sestamibi was injected at rest. The patient exercised according to regular Martin protocol for total duration of 5 minutes and at peak exercise 43 point mCi of technetium 99m sestamibi was injected stress images were obtained stress and rest images were reconstructed in comparing the short axis vertical long and horizontal long axis. Gated images were also obtained. Perfusion SPECT analysis: Review of the stress images demonstrate normal uptake of tracer noted in all are as of the myocardium. The resting images similarly demonstrate normal uptake of tracer noted in all areas of the myocardium. No areas of reversibility are noted to suggest ischemia no previous infarct was noted. Gated SPECT analysis: The gated ejection fraction is 65%. Conclusion: Normal exercise myocardial perfusion stress test at a moderate workload.
== END | disposition home or self-care (01) ==
LOC: CVS 06:03
PROVIDERS: PCP Internal Medicine; Referring Provider Nurse Practitioner Gerontology; Visit Provider Nurse Practitioner Gerontology
DX: R07.89 Other chest pain (principal); I25.10 Atherosclerotic heart disease of native coronary artery without angina pectoris; Z95.5 Presence of coronary angioplasty implant and graft
CPT/HCPCS: 78452; 93017; A9500; A4216